=== PATIENT | male | born 1940 | race Caucasian/White ===

== ENCOUNTER 2022-09-23 09:03 | Observation (INO) | payer OTHER ==
[2022-09-23 09:16] LABS: Absolute Lymphocytes (CBC) 1.1 K/uL (0.7-4.9); Hematocrit 42.9 % (39.6-49.0); Lymphocytes % 18.2 % (15.3-44.8); MCV 93.6 fL (80-100); MPV 9.1 fL (7.6-11.3); RBC Red Blood Cell Count 4.58 M/uL (4.33-5.43)
[2022-09-23 09:19] LABS: Protime INR 1.14
[2022-09-23] MEDS ORDERED: ASPIRIN 81 MG CHEWABLE TABLET ONE (09:19)
[2022-09-23 09:39] LABS: Albumin 3.7 g/dL (3.4-5.0); Bilirubin Direct 0.3 mg/dL (0-0.2); Bilirubin Total 0.8 mg/dL (0.2-1.0); Magnesium 1.7 mg/dL (1.6-2.4); Potassium 3.6 mEq/L (3.5-5.1); Protein, Total 6.7 g/dL (6.4-8.2)
[2022-09-23 09:42] LABS: Troponin High Sensitivity 136.9 pg/mL (<58.9)
--- NOTE | 2022-09-23 10:05 | P.HP ---
Certification for Inpatient Patient admitted to: Observation With expected LOS: <2 Midnights Patient will require the following post-hospital care: None Practitioner: I am a practitioner with admitting privileges, knowledge of patient current condition, hospital course, and medical plan of care. Services: Services provided to patient in accordance with Admission requirements found in Title 42 Section 412.3 of the Code of Federal Regulations Patient History Date of Service: 09/23/22 Primary Care Provider: [facility] Reason for admission: Chest Pain History of Present Illness: Service was provided via video visit/Tele-Medicine. For that reason, no physical examination was performed. Mr. Monica Gil is a very pleasant 82 year old male who has a past medical history of type II diabetes mellitus, hypertension, and dyslipidemia who presents to the [facility] Emergency Department with chest pain. He reports that, about 3 weeks ago, he began experiencing chest pain. He states that this chest pain is in his bilateral upper chest. He states that the pain is intermittent, and occurs without any obvious inciting or alleviating factors. He grades the pain as mild-moderate. He has tried taking aspirin, with partial alleviation of symptoms. On review of systems, he denies any fevers, chills, headaches, dizziness, syncope, numbness/tingling, weakness, palpitations, shortness of breath, wheezing, cough, abdominal pain, nausea/vomiting, diarrhea, constipation, myalgia, lower extremity edema, joint aches, or any other symptoms. Upon presentation, his vital signs were stable. His laboratory studies were notable for an initial troponin of 136.9. EKG was without STEMI criteria. Chest x-ray revealed, "bibasilar patchy airspace opacities more pronounced on the left, raise concern for developing pneumonia." In the Emergency Department, he was given aspirin and enoxaparin. He was admitted to the General Internal Medicine Service for further evaluation. Allergies No Known Allergies Allergy (Verified 09/23/22 11:06) Home Medications: Atorvastatin Calcium [Lipitor] 80 mg PO BEDTIME 09/23/22 Empagliflozin [Jardiance] 25 mg PO DAILY 09/23/22 Ergocalciferol (Vitamin D2) [Vitamin D2] 50,000 unit PO DIRECTED 09/23/22 Metformin HCl 1,000 mg PO BID 09/23/22 Semaglutide [Ozempic] 0.25 mg SQ DIRECTED 09/23/22 lisinopriL [Lisinopril] 10 mg PO DAILY 09/23/22 - Past Medical/Surgical History -: Type II Diabetes Mellitus -: Hypertension -: Hyperlipidemia -: Restless Leg Syndrome -: Cholecystectomy - Family History Family History: Reviewed- Non-Contributory - Social History Smoking Status: Never smoker Alcohol use: No CD- Drugs: No Review of Systems General: Unremarkable Eyes: Unremarkable ENT: Unremarkable Respiratory: Unremarkable Cardiovascular: Chest Pain Gastrointestinal: Unremarkable Genitourinary: Unremarkable Musculoskeletal: Unremarkable Integumentary: Unremarkable Neurological: Unremarkable Lymphatics: Unremarkable Physical Examination - Vital Signs Temperature: 97.9 F Blood Pressure: 157/81 Pulse: 81 Respirations: 16 Pulse Ox (%): 98 - Physical Exam General: Alert, In no apparent distress, Oriented x3 Respiratory: Other (No visible shortness of breath or respiratory distress) Cardiovascular: Regular rate/rhythm (on telemetry) Neurological: Normal speech, Normal affect - Studies Laboratory Data (last 24 hrs) 09/23/22 09:09: PT 12.5, INR 1.14 09/23/22 09:09: WBC 6.30, Hgb 14.3, Hct 42.9, Plt Count 157 09/23/22 09:09: Sodium 139, Potassium 3.6, BUN 14, Creatinine 0.91, Glucose 127 H, Magnesium 1.7, Total Bilirubin 0.8, AST 21, ALT 42, Alkaline Phosphatase 88 Assessment and Plan - Plan # Chest Pain, concern for Acute Coronary Syndrome (Non-ST Segment Elevation Myocardial Infarction) # Hypertension # Dyslipidemia # History of Aortic Stenosis - Evaluation thus far: - EKG: without STEMI criteria, trend - Trend troponin: first was 136.9 - Ordered d-dimer - Ordered transthoracic echocardiogram - Chest x-ray = "bibasilar patchy airspace opacities more pronounced on the left, raise concern for developing pneumonia. " - Management: - Consulted Cardiology and spoke with Dr. Newby - recommendations appreciated - S/P aspirin 324 mg PO x 1 in ED - Start daily baby aspirin - S/P enoxaparin in ED - continue pending Cardiology recs - Continue home lisinopril, atorvastatin - Plan to start metoprolol as tolerated # Left-Sided Community Acquired Pneumonia - Evaluation thus far: - Does not meet SIRS criteria - D-Dimer = pending - Procalcitonin = pending - Lactate + Blood Cultures = pending - Chest x-ray = "bibasilar patchy airspace opacities more pronounced on the left, raise concern for developing pneumonia. " - Treatment thus far: - Consulted Respiratory Therapy - Supplemental oxygen to maintain SpO2 > 92% - Ceftriaxone 1 g IV q24hr - Azithromycin 500 mg IV q24hr - Encouraged incentive spirometry # Type II Diabetes Mellitus - Hgb A1c = pending - Correction scale insulin - Hold home empagliflozin, metformin, semaglutide while hospitalized Emigdio Medrano M.D. Discharge Plan: Home Plan to discharge in: 24 Hours - Advance Directives Does patient have a Living Will: No Does patient have a Durable POA for Healthcare: No - Code Status/Comfort Care Code Status Assessed: Yes Code Status: Full Code
--- NOTE | 2022-09-23 10:09 | ER ---
Nurse's Notes [facility] Name: Monica Gil Age: 82 yrs Sex: Male : 1940 Arrival Date: 09/23/2022 Time: 09:03 Bed 8 Private MD: Diagnosis: Subsequent non-ST elevation (NSTEMI) myocardial infarction Presentation: 09/23 09:03 Coronavirus screen: At this time, the client does not indicate any symptoms associated hb with coronavirus-19. Ebola Screen: No symptoms or risks identified at this time. Initial Sepsis Screen: Does the patient meet any 2 criteria? No. Patient's initial sepsis screen is negative. Does the patient have a suspected source of infection? No. Patient's initial sepsis screen is negative. Risk Assessment: Do you want to hurt yourself or someone else? Patient reports no desire to harm self or others. 09:03 Method Of Arrival: EMS: [facility] 09:03 Chief complaint: EMS states: SUBSTERNAL CP x3 WK, SENT FROM [place]. Onset of symptoms is bp unknown. Care prior to arrival: IV initiated. 20 GA, in the right forearm, Glucose check: 149. 09:03 Acuity: DEXTER 3 bp Triage Assessment: 09:08 General: Appears in no apparent distress. Behavior is calm, cooperative, appropriate bp for age. Pain: Complains of pain in chest. EENT: No deficits noted. Neuro: No deficits noted. Cardiovascular: Rhythm is atrial fibrillation. Respiratory: No deficits noted. GI: No signs and/or symptoms were reported involving the gastrointestinal system. : No signs and/or symptoms were reported regarding the genitourinary system. Derm: No deficits noted. Musculoskeletal: No deficits noted. Historical: - Allergies: 09:08 No Known Allergies; bp - Home Meds: 09:08 atorvastatin 80 mg oral tablet daily [Active]; empagliflozin 25 mg oral tablet daily bp [Active]; ergocalciferol (vitamin D2) 1,250 mcg (50,000 unit) oral capsule every week [Active]; gabapentin 600 mg oral Tablet, Extended Release 24 hr every evening [Active]; lisinopril 10 mg Oral tablet daily [Active]; metformin 1,000 mg Oral Tablet, ER Gastric Retention 24 hr 2 times per day [Active]; semaglutide 0.25 mg or 0.5 mg(2 mg/1.5 mL) subcutaneous Pen Injector every week [Active]; sildenafil 100 mg oral tablet 0.5 tab daily [Active]; - PMHx: 09:08 Hypercholesterolemia; AORTIC VALVE STENOSIS; RESTLESS LEG SYNDROM; Diabetes mellitus; bp - Immunization history:: Adult Immunizations up to date. - Social history:: Smoking status: Patient denies any tobacco usage or history of. Screenin:05 [facility] ED Fall Risk Assessment (Adult) Score/Fall Risk Level 0 - 2 = Low Risk hb Oriented to surroundings, Maintained a safe environment, Educated pt \T\ family on fall prevention, incl call for assistance when getting out of bed. Abuse screen: Denies threats or abuse. Denies injuries from another. Nutritional screening: No deficits noted. Tuberculosis screening: No symptoms or risk factors identified. Assessment: 09:14 General: SEE TRIAGE NOTE. bp 10:11 Reassessment: Patient appears in no apparent distress at this time. Patient and/or hb family updated on plan of care and expected duration. Pain level reassessed. Patient is alert, oriented x 3, equal unlabored respirations, skin warm/dry/pink. 11:34 Reassessment: Patient appears in no apparent distress at this time. Patient and/or hb family updated on plan of care and expected duration. Pain level reassessed. Patient is alert, oriented x 3, equal unlabored respirations, skin warm/dry/pink. 12:37 Reassessment: Patient appears in no apparent distress at this time. Patient and/or hb family updated on plan of care and expected duration. Pain level reassessed. Patient is alert, oriented x 3, equal unlabored respirations, skin warm/dry/pink. Vital Signs: 09:03 BP 157 / 81; Pulse 81; Resp 16; Temp 97.9; Pulse Ox 98% ; Weight 77.11 kg; Height 5 ft. hb 7 in. ; Pain 3/10; 10:11 BP 136 / 75; Pulse 81; Resp 16; Pulse Ox 97% on R/A; hb 11:34 BP 113 / 66; Pulse 85; Resp 15; Pulse Ox 96% on R/A; Pain 0/10; hb 12:37 BP 108 / 56; Pulse 74; Resp 20; Pulse Ox 95% on R/A; hb 09:03 Body Mass Index 26.63 (77.11 kg, 170.18 cm) hb 09:03 Pain Scale: Adult hb 11:34 Pain Scale: Adult hb ED Course: 09:03 Patient arrived in ED. hb 09:04 Sarika Espinoza FNP-C is [facility]. snw 09:04 Vidal Noyola MD is Attending Physician. snw 09:05 Arm band placed on. hb 09:07 Santi Joel, RN is Primary Nurse. bp 09:08 Triage completed. bp 09:12 Patient maintains SpO2 saturation greater than 95% on room air. hb 09:13 EKG done, by ED staff. tm3 09:14 Patient has correct armband on for positive identification. Bed in low position. Call bp light in reach. Side rails up X2. Adult w/ patient. Client placed on continuous cardiac and pulse oximetry monitoring. NIBP monitoring applied. 09:14 Maintain EMS IV. Dressing intact. Good blood return noted. Site clean \T\ dry. Gauge \T\ hb site: 20g RFA. 09:14 No provider procedures requiring assistance completed. Maintain EMS IV. Dressing bp intact. Good blood return noted. Site clean \T\ dry. Gauge \T\ site: 20 GA R FA. Patient maintains SpO2 saturation greater than 95% on room air. 10:08 Emigdio Medrano MD is Hospitalizing Provider. snw 10:16 XRAY Chest (1 view) In Process Unspecified. EDMS Administered Medications: 09:14 Drug: Aspirin PO Chewable Tablet 324 mg Route: PO; hb 09:44 Follow up: Response: No adverse reaction bp 11:17 Drug: Rocephin IV 1 grams Route: IV; Rate: calculated rate; Site: right forearm; hb 11:18 Drug: Enoxaparin Sub-Q 1 mg/kg Route: Sub-Q; Site: abdomen; hb Medication: 09:15 VIS not applicable for this client. hb Outcome: 10:08 Decision to Hospitalize by Provider. snw 14:20 Patient left the ED. iw Signatures: Dispatcher [employer] EDMS Roc Aguirre tm3 Sarika Espinoza FNP-C BEEF GRADER-Csnw Yokasta Jett, CANDI RN iw Bekah Johns RN RN hb Santi Joel, RN RN bp
--- NOTE | 2022-09-23 10:09 | EDPHYS ---
Physician Documentation [facility] Name: Monica Gil Age: 82 yrs Sex: Male : 1940 Arrival Date: 09/23/2022 Time: 09:03 Bed 8 Private MD: ED Physician Vidal Noyola HPI: 09/23 09:11 This 82 yrs old Male presents to ER via EMS with complaints of Chest Pain. snw 09:11 The patient or guardian reports chest pain that is located primarily in the anterior snw chest wall, bilaterally. Onset: acutely, 3 week(s) ago, and became persistent. The pain does not radiate. Associated signs and symptoms: The patient has no apparent associated signs or symptoms. The chest pain is described as dull, a pressure. Duration: The patient or guardian reports a single episode, that is still ongoing. Severity of pain: At its worst the pain was mild. The patient has experienced a previous episode, many years ago. pt sent from the [place] clinic for eval. Historical: - Allergies: : No Known Allergies; bp - Home Meds: :08 atorvastatin 80 mg oral tablet daily [Active]; empagliflozin 25 mg oral tablet daily bp [Active]; ergocalciferol (vitamin D2) 1,250 mcg (50,000 unit) oral capsule every week [Active]; gabapentin 600 mg oral Tablet, Extended Release 24 hr every evening [Active]; lisinopril 10 mg Oral tablet daily [Active]; metformin 1,000 mg Oral Tablet, ER Gastric Retention 24 hr 2 times per day [Active]; semaglutide 0.25 mg or 0.5 mg(2 mg/1.5 mL) subcutaneous Pen Injector every week [Active]; sildenafil 100 mg oral tablet 0.5 tab daily [Active]; - PMHx: 09:08 Hypercholesterolemia; AORTIC VALVE STENOSIS; RESTLESS LEG SYNDROM; Diabetes mellitus; bp - Immunization history:: Adult Immunizations up to date. - Social history:: Smoking status: Patient denies any tobacco usage or history of. ROS: 09:10 Constitutional: Negative for fever, chills, and weight loss, Eyes: Negative for injury, snw pain, redness, and discharge, ENT: Negative for injury, pain, and discharge, Neck: Negative for injury, pain, and swelling, Respiratory: Negative for shortness of breath, cough, wheezing, and pleuritic chest pain, Abdomen/GI: Negative for abdominal pain, nausea, vomiting, diarrhea, and constipation, Back: Negative for injury and pain, : Negative for injury, bleeding, discharge, and swelling, MS/Extremity: Negative for injury and deformity, Skin: Negative for injury, rash, and discoloration, Neuro: Negative for headache, weakness, numbness, tingling, and seizure, Psych: Negative for depression, anxiety, suicide ideation, homicidal ideation, and hallucinations. 09:10 Cardiovascular: Positive for chest pain, of the chest. Exam: 09:07 Constitutional: This is a well developed, well nourished patient who is awake, alert, snw and in no acute distress. Head/Face: Normocephalic, atraumatic. Eyes: Pupils equal round and reactive to light, extra-ocular motions intact. Lids and lashes normal. Conjunctiva and sclera are non-icteric and not injected. Cornea within normal limits. Periorbital areas with no swelling, redness, or edema. ENT: Nares patent. No nasal discharge, no septal abnormalities noted. Tympanic membranes are normal and external auditory canals are clear. Oropharynx with no redness, swelling, or masses, exudates, or evidence of obstruction, uvula midline. Mucous membranes moist. Neck: Trachea midline, no thyromegaly or masses palpated, and no cervical lymphadenopathy. Supple, full range of motion without nuchal rigidity, or vertebral point tenderness. No Meningismus. Chest/axilla: Normal chest wall appearance and motion. Nontender with no deformity. No lesions are appreciated. Respiratory: Lungs have equal breath sounds bilaterally, clear to auscultation and percussion. No rales, rhonchi or wheezes noted. No increased work of breathing, no retractions or nasal flaring. Abdomen/GI: Soft, non-tender, with normal bowel sounds. No distension or tympany. No guarding or rebound. No evidence of tenderness throughout. Back: No spinal tenderness. No costovertebral tenderness. Full range of motion. Skin: Warm, dry with normal turgor. Normal color with no rashes, no lesions, and no evidence of cellulitis. MS/ Extremity: Pulses equal, no cyanosis. Neurovascular intact. Full, normal range of motion. Neuro: Awake and alert, GCS 15, oriented to person, place, time, and situation. Cranial nerves II-XII grossly intact. Motor strength 5/5 in all extremities. Sensory grossly intact. Cerebellar exam normal. Normal gait. Psych: Awake, alert, with orientation to person, place and time. Behavior, mood, and affect are within normal limits. 09:07 Cardiovascular: Rate: normal, Rhythm: irregular, Pulses: no pulse deficits are appreciated, Heart sounds: normal, Edema: is not appreciated. Vital Signs: 09:03 BP 157 / 81; Pulse 81; Resp 16; Temp 97.9; Pulse Ox 98% ; Weight 77.11 kg; Height 5 ft. hb 7 in. ; Pain 3/10; 10:11 BP 136 / 75; Pulse 81; Resp 16; Pulse Ox 97% on R/A; hb 11:34 BP 113 / 66; Pulse 85; Resp 15; Pulse Ox 96% on R/A; Pain 0/10; hb 12:37 BP 108 / 56; Pulse 74; Resp 20; Pulse Ox 95% on R/A; hb 09:03 Body Mass Index 26.63 (77.11 kg, 170.18 cm) hb 09:03 Pain Scale: Adult hb 11:34 Pain Scale: Adult hb MDM: 09:04 Patient medically screened. snw 09:44 The patient was given aspirin in the Emergency Department. RODRICK Risk Score: 1 - snw patient's age is greater or equal to 65 years, 1 - Three or more CAD risk factors, 1- Known CAD, 1 - Recent [<24hrs] Severe Angina, 1 - Elevated Cardiac Markers, TOTAL SCORE = 5. Data reviewed: vital signs, nurses notes, lab test result(s), radiologic studies. Consideration of Admission/Observation Patient was admitted/placed on observation. Counseling: I had a detailed discussion with the patient and/or guardian regarding: the historical points, exam findings, and any diagnostic results supporting the discharge/admit diagnosis, the presence of at least one elevated blood pressure reading (>120/80) during this emergency department visit, lab results, radiology results, the need for further work-up and treatment in the hospital, pt offered transfer to [place], declines. Pt wishes to be admitted here at [facility]. Special discussion: Based on the history and exam findings, there is no indication for further emergent testing or inpatient evaluation. 11:04 ED course: pt is without elevated WBC, no fever, no cough. Chest pain has been ongoing snw x 3 weeks. Chest x-ray read as concerning for developing pneumonia, will give Rocephin as pt will be hospitalized and at increased risk for infection.. 09/23 09:05 Order name: Basic Metabolic Panel; Complete Time: 09:42 snw 09/23 09:05 Order name: CBC with Diff; Complete Time: 09:18 snw 09/23 09:05 Order name: LFT's; Complete Time: 09:42 snw 09/23 09:05 Order name: Magnesium; Complete Time: 09:42 snw 09/23 09:05 Order name: NT PRO-BNP; Complete Time: 09:42 snw 09/23 09:05 Order name: PT-INR; Complete Time: 09:26 snw 09/23 09:05 Order name: Troponin HS; Complete Time: 09:42 snw 09/23 10:06 Order name: Troponin High Sensitivity EDMS 09/23 10:06 Order name: Troponin High Sensitivity EDMS 09/23 10:06 Order name: Troponin High Sensitivity EDMS 09/23 10:35 Order name: D-Dimer; Complete Time: 11:47 EDMS 09/23 10:59 Order name: Basic Metabolic Panel EDMS 09/23 10:59 Order name: Basic Metabolic Panel EDMS 09/23 10:59 Order name: CBC with Automated Diff EDMS 09/23 10:59 Order name: CBC with Automated Diff EDMS 09/23 10:59 Order name: Magnesium EDMS 09/23 10:59 Order name: Magnesium EDMS 09/23 10:59 Order name: Phosphorus EDMS 09/23 10:59 Order name: Phosphorus EDMS 09/23 11:59 Order name: Lactate w/ 2H reflex if indic.; Complete Time: 12:43 EDMS 09/23 12:13 Order name: Procalcitonin; Complete Time: 12:43 EDMS 09/23 09:05 Order name: XRAY Chest (1 view); Complete Time: 11:04 snw 09/23 10:05 Order name: Echo with Doppler EDMS 09/23 12:22 Order name: CT; Complete Time: 12:43 EDMS 09/23 09:05 Order name: EKG; Complete Time: 09:06 snw 09/23 10:59 Order name: Heart Healthy EDMS 09/23 09:05 Order name: Cardiac monitoring; Complete Time: 09:14 snw 09/23 09:05 Order name: EKG - Nurse/Tech; Complete Time: 09:14 snw 09/23 09:05 Order name: IV Saline Lock; Complete Time: 09:14 snw 09/23 09:05 Order name: Labs collected and sent; Complete Time: :14 snw 09/23 09:05 Order name: O2 Per Protocol; Complete Time: :14 snw 09/23 09:05 Order name: O2 Sat Monitoring; Complete Time: 09:14 snw Administered Medications: 09:14 Drug: Aspirin PO Chewable Tablet 324 mg Route: PO; hb 09:44 Follow up: Response: No adverse reaction bp 11:17 Drug: Rocephin IV 1 grams Route: IV; Rate: calculated rate; Site: right forearm; hb 11:18 Drug: Enoxaparin Sub-Q 1 mg/kg Route: Sub-Q; Site: abdomen; hb Disposition Summary: 09/23/22 10:08 Hospitalization Ordered Hospitalization Status: Inpatient Admission snw Provider: Emigdio Medrano Location: Telemetry/MedSurg (Inpatient) snw Condition: Stable snw Problem: new snw Symptoms: are unchanged snw Bed/Room Type: Standard snw Room Assignment: [facility](09/23/22 12:22) Diagnosis - Subsequent non-ST elevation (NSTEMI) myocardial infarction snw Forms: - Medication Reconciliation Form snw - SBAR form snw Signatures: Dispatcher [employer] EDJasmyne Weeks RN RN dw Sarika Espinoza, MASON HELPER-C [employer] HELPER-Csnw Bekah Johns RN RN hb Peltier, Brian RN RN bp Corrections: (The following items were deleted from the chart) 12:22 10:08 snw dw
--- NOTE | 2022-09-23 10:51 | RAD REPORT ---
EXAM DESCRIPTION: Nuria Single View09/23/2022 10:15 am CLINICAL HISTORY: CHEST PAIN COMPARISON: No comparisons TECHNIQUE: Portable AP view of the chest. FINDINGS: Bibasilar patchy airspace opacities more pronounced on the left. No pneumothorax or effusi on. The cardiomediastinal contours are unremarkable. IMPRESSION: Bibasilar patchy airspace opacities more pronounced on the left, raise concern for devel oping pneumonia.
[2022-09-23] MEDS ORDERED: CEFTRIAXONE 1000 MG/VIAL ONE ×2 (11:17→11:32)
[2022-09-23] MEDS ORDERED: ENOXAPARIN 80 MG/0.8 ML SQ ONE (11:18)
[2022-09-23] MEDS ORDERED: GLUCAGON 1 MG/VIAL IM PRN (11:22)
[2022-09-23] MEDS ORDERED: D50W 25 GM/50 ML SYRINGE IV PRN (11:22)
[2022-09-23] MEDS: INSULIN -REGULAR HUMAN 50 UNIT/0.5 ML ML SQ SCH ×3 (11:30→20:56)
[2022-09-23] MEDS ORDERED: CEFTRIAXONE 1,000 MG in NA CHLORIDE 0.9% 50 ML IVPB SCH (11:30)
[2022-09-23] MEDS ORDERED: AZITHROMYCIN IV 500 MG in NA CHLORIDE 0.9% 250 ML IVPB SCH (11:30)
[2022-09-23] MEDS ORDERED: NA CHLORIDE 0.9% 100 ML ONE (11:33)
[2022-09-23] MEDS ORDERED: D10W 125 ML IV PRN (11:34)
--- NOTE | 2022-09-23 12:22 | RAD REPORT ---
EXAM DESCRIPTION: CT - Thorax Wo Con - 09/23/2022 11:45 am CLINICAL HISTORY: PNA? COMPARISON: Chest Single View dated 09/23/2022 TECHNIQUE: Axial thin cut images of the chest were obtained without IV contrast. Multiplanar reforma ts were generated and reviewed. All CT scans are performed using dose optimization technique as appropriate and may include automated exposure control or mA/KV adjustment according to patient size. FINDINGS: No mass or infiltrate in the lung parenchyma. Small to moderate bilateral pleural effusion s with underlying dependent airspace opacification, which may suggest atelectasis. Well-circumscribed ovoid right apical 9 millimeter nodule 6 millimeter nodule along the right major fissure. A 4 millim eter nodule is present in the subpleural upper segment right lower lobe posteriorly, could be related to the ongoing atelectasis. No pneumothorax. No abnormal mediastinal or hilar masses or lymphadenopathy seen. No pulmonary artery findings. Assess ment is limited in the absence of IV contrast. Ectasia of the ascending thoracic aorta, measuring 4.2 centimeter in caliber. Heart is normal in size . No hyperdense mural thrombus. Dense calcifications at the aortic valve annulus. Moderate atheroscle rotic calcifications of the proximal coronary arteries and thoracic aorta. No chest wall mass or abnormal axillary lymphadenopathy. Evaluation of the solid abdominal structures reveals no suspicious findings. IMPRESSION: Small to moderate bilateral layering pleural effusions. Underlying dependent airspace op acification, suggestive of atelectasis. Ectasia of the ascending thoracic aorta measuring 4.2 centimeter in caliber. Multiple small right lung nodules as above, some of which may be chronic, while others may relate to ongoing atelectasis or inflammation. Short-term follow-up CT in 3 months following resolution of any acute symptoms is recommended to exclude an underlying suspicious nodule.
[2022-09-23] MEDS ORDERED: LIDOCAINE 1% 20 ML MDV ONE (13:59)
[2022-09-23] MEDS ORDERED: HEPA 1000U/500MLS 2,000 UNIT/1,000 ML BAG IV ONE (13:59)
[2022-09-23] MEDS ORDERED: NA CHLORIDE 0.9% 500 ML ONE (14:39)
[2022-09-23] MEDS ORDERED: FENTANYL CITR 100 MCG/2 ML ONE (15:05)
[2022-09-23] MEDS ORDERED: MIDAZOLAM HCL 2 MG/2 ML INJ ONE (15:06)
[2022-09-23] MEDS ORDERED: HEPARIN 5000 UNIT/ML 1 ML VIAL ONE (15:06)
[2022-09-23] MEDS ORDERED: ATROPINE SULF 1 MG/10 ML SYR IV ONE (15:06)
[2022-09-23] MEDS ORDERED: HEPARIN 10,000 UNIT/10 ML VIAL IV ONE (15:06)
[2022-09-23] MEDS ORDERED: CLOPIDOGREL 75 MG TABLET ONE (15:06)
[2022-09-23] MEDS ORDERED: VERAPAMIL HCL 10 MG/4 ML VIAL IV ONE (15:06)
--- NOTE | 2022-09-23 17:55 | CON ---
Date of Consultation: 09/23/[address] Palafox and Dr. Medrano on 09/23/2022. I saw the patient on 09/23/2022. Reason For Consultation: Non-STEMI. History Of Present Illness: Mr. Gil is 82 years old, has had a history of aortic valvular stenos is and/or regurgitation. Has a history of diabetes, dyslipidemia. Never had any coronary artery dis ease, as far as, he knows. [facility]. He has a history of dyslipidemia. He takes Jardianc e, Lipitor, metformin, Ozempic, and lisinopril at home. Comes in with about a day and a half of subs ternal chest pain across the anterior chest that is tight with some nausea and diaphoresis. No short ness of breath, PND, orthopnea, pedal edema, palpitation, or syncope. EKG is nonspecific. Chest x-r ay is negative. Troponin positive. Past Medical History: As stated above. Allergies: NONE. Medications: Listed earlier. Review of Systems: Negative. Social History: Negative. Family History: Negative. Physical Examination: Vital Signs: Stable, afebrile. HEENT: Negative. Neck: Supple with no bruit. Chest: Clear. Cardiac: Revealed a regular rhythm and rate with a 3/6 systolic ejection murmur, as well as, a diast olic murmur at the right third intercostal space radiating to the carotid. He had a positive S4 gall ops. Abdomen: Benign. Extremities: Revealed no clubbing, cyanosis, or edema. Diagnostic Data: A chest x-ray showed possible pneumonia. BNP was 3114. EKG is nonspecific. Rest of the blood work was normal. Creatinine is normal. Impression And Plan: 1.Azv-FW-xecguaxyg myocardial infarction. 2.Aortic valve disease probably stenosis and/or regurgitation. Echocardiogram is pending. 3.Diabetes, well controlled. 4.Dyslipidemia, well controlled. 5.Possible pneumonia. There is no clinical evidence of pneumonia. His white count is normal. He does not have any fever o r cough. Blood cultures are pending. We will continue to follow him. We will plan to cath him toda y. He understands the risks and the benefits of the procedure, and he agrees to proceed. SHAKA/DEIRDRE Voice ID: [id number] Report ID: [id number]
[2022-09-23] MEDS ORDERED: METOPROLOL TAR 25 MG TAB PO SCH (18:00)
[2022-09-23 18:23] VITALS: O2SAT 96
[2022-09-23] MEDS ORDERED: HEPARIN/D5W 25,000 UNIT/500 ML BAG IV PRN (20:00)
[2022-09-23 21:00] VITALS: BP 158/67
[2022-09-23] MEDS ORDERED: ENOXAPARIN 80 MG/0.8 ML SQ SCH (21:00)
[2022-09-23] MEDS ORDERED: ATORVASTATIN 80 MG TAB PO SCH (21:00)
[2022-09-23 21:51] VITALS: BMI 26.6
[2022-09-23 21:54] VITALS: TEMP 98.6
[2022-09-23] MEDS ORDERED: ONDANSETRON 4 MG/2 ML VIAL IV ONE (22:34)
[2022-09-23] MEDS ORDERED: MORPHINE 4 MG/ML SYR IV ONE (22:34)
--- NOTE | 2022-09-23 22:58 | OP ---
Date of Procedure: 09/23/2022 Surgeon: JG MERCEDES Indication: Selective coronary angiogram. Indication: Non-ST elevation myocardial infarction. Access: Right radial artery 6-Yoruba closed with TR band. Complications: None. Estimated Blood Loss: Bleeding less than 20 mL. Description Of Procedure: After risks, benefits, and alternatives were explained, the patient agreed to procedure and signed informed consent. The patient was brought into the cardiac catheterization laboratory and was prepped and draped in sterile fashion. Then, I accessed right radial artery using pediatric micropuncture kit and placed 6-Yoruba Slender sheath and then I took 5-Yoruba [place] 4 cath eter into the aortic root over a J-wire, engaged left main and then the RCA and took standard views a nd then removed the catheter and sheath and placed TR band with good hemostasis. Findings: 1.Left main: Very large vessel with severe rzx-ha-dkwoag stenosis ranging between 80% to 90% stenos is. 2.LAD: With proximal diffuse 80% stenosis and then the bga-ni-qlspfe segment just with luminal regu larities. There is a very large diagonal branch that appears to be with mild disease only. 3.Left circumflex: Very large and dominant. Ostial to proximal 80%, then OM1 branch has multiple a reas of 50% to 60% stenosis and then the circ itself that supplies the inferior wall has multiple les ions ranging between 20% to 40% stenosis. 4.RCA: Very small, less than 1 mm vessel and nondominant. Conclusion: Severe multivessel coronary artery disease including distal left main, ostial left anter ior descending artery, and the left circumflex. Recommendations: CABG evaluation. We will transfer to [facility]. If the patient is t urned down for surgery, then we will plan for a complex PCI with Impella assistance to stent the left main to LAD and to circ using culotte technique. SR/MODL Voice ID: [id number] Report ID: [id number]
--- NOTE | 2022-09-24 00:08 | P.DS ---
Admission Date: 09/23/22 Discharge Date: 09/24/22 Primary Care Provider: [facility] Disposition: TRANSFER TO [facility] Discharge Condition: SERIOUS Reason for Admission: Chest Pain Consultations: Cardiology- Dr. Newby and Dr. Kent Procedures: Selective coronary angiogram - Problems (1) NSTEMI (non-ST elevated myocardial infarction) Current Visit: Yes Status: Acute (2) Coronary artery disease Current Visit: Yes Status: Chronic Qualifiers: Coronary Disease-Associated Artery/Lesion type: [place] artery [place] vs. transplanted heart: [place] heart Associated angina: with unstable angina Qualified Code(s): I25.110 - Atherosclerotic heart disease of [place] coronary artery with unstable angina pectoris (3) Hypertension Current Visit: Yes Status: Chronic Qualifiers: Hypertension type: primary hypertension Qualified Code(s): I10 - Essential (primary) hypertension (4) Hyperlipidemia Current Visit: Yes Status: Chronic Qualifiers: Hyperlipidemia type: mixed hyperlipidemia Qualified Code(s): E78.2 - Mixed hyperlipidemia (5) History of aortic stenosis Current Visit: Yes Status: Chronic (6) Pneumonia Current Visit: Yes Status: Acute Qualifiers: Pneumonia type: due to unspecified organism Laterality: left Lung location: lower lobe of lung Qualified Code(s): J18.9 - Pneumonia, unspecified organism (7) Type 2 diabetes mellitus Current Visit: Yes Status: Chronic Qualifiers: Diabetes mellitus longterm insulin use: without longterm use Diabetes mellitus complication status: with hyperglycemia Qualified Code(s): E11.65 - Type 2 diabetes mellitus with hyperglycemia Brief History of Present Illness: Mr. Monica Gil is a very pleasant 82 year old male who has a past medical history of type II diabetes mellitus, hypertension, and dyslipidemia who presents to the [facility] Emergency Department with chest pain. He reports that, about 3 weeks ago, he began experiencing chest pain. He states that this chest pain is in his bilateral upper chest. He states that the pain is intermittent, and occurs without any obvious inciting or alleviating factors. He grades the pain as mild-moderate. He has tried taking aspirin, with partial alleviation of symptoms. On review of systems, he denies any fevers, chills, headaches, dizziness, syncope, numbness/tingling, weakness, palpitations, shortness of breath, wheezing, cough, abdominal pain, nausea/vomiting, diarrhea, constipation, myalgia, lower extremity edema, joint aches, or any other symptoms. Upon presentation, his vital signs were stable. His laboratory studies were notable for an initial troponin of 136.9. EKG was without STEMI criteria. Chest x-ray revealed, "bibasilar patchy airspace opacities more pronounced on the left, raise concern for developing pneumonia." In the Emergency Department, he was given aspirin and enoxaparin. He was admitted to the General Internal Medicine Service for further evaluation. Hospital Course: Patient underwent cardiac catheterization which revealed severe multivessel coronary artery disease including distal left main, ostial left anterior descending artery, and the left circumflex. Cardiology recommended transfer to [facility] for CABG evaluation. He was accepted and left this facility hemodynamically stable by ground EMS on heparin drip at 2237. Vital Signs/Physical Exam: Temp Pulse Resp BP Pulse Ox 98.6 F 109 H 16 158/67 H 96 09/23/22 20:00 09/23/22 20:59 09/23/22 22:43 09/23/22 20:59 09/23/22 22:43 General: Alert, In no apparent distress, Oriented x3 HEENT: Atraumatic, Normocephalic Neck: Supple Respiratory: Clear to auscultation bilaterally, Normal air movement Cardiovascular: Regular rate/rhythm, Normal S1 S2 Gastrointestinal: Soft and benign, Non-distended Musculoskeletal: No clubbing Integumentary: No rashes Neurological: Normal speech, Normal affect Laboratory Data at Discharge: WBC 6.30 thou/uL (4.3-10.9) 09/23/22 09:09 Hgb 14.3 g/dL (13.6-17.9) 09/23/22 09:09 Hct 42.9 % (39.6-49.0) 09/23/22 09:09 Plt Count 157 thou/uL (152-406) 09/23/22 09:09 PT 12.5 SECONDS (9.5-12.5) 09/23/22 09:09 INR 1.14 09/23/22 09:09 Sodium 139 mEq/L (136-145) 09/23/22 09:09 Potassium 3.6 mEq/L (3.5-5.1) 09/23/22 09:09 BUN 14 mg/dL (7-18) 09/23/22 09:09 Creatinine 0.91 mg/dL (0.70-1.30) 09/23/22 09:09 Glucose 127 mg/dL (74-106) H 09/23/22 09:09 Magnesium 1.7 mg/dL (1.6-2.4) 09/23/22 09:09 Total Bilirubin 0.8 mg/dL (0.2-1.0) 09/23/22 09:09 AST 21 U/L (15-37) 09/23/22 09:09 ALT 42 U/L (16-61) 09/23/22 09:09 Alkaline Phosphatase 88 U/L (45-117) 09/23/22 09:09 Home Medications: Atorvastatin Calcium [Lipitor] 80 mg PO BEDTIME 09/23/22 Empagliflozin [Jardiance] 25 mg PO DAILY 09/23/22 Ergocalciferol (Vitamin D2) [Vitamin D2] 50,000 unit PO DIRECTED 09/23/22 Metformin HCl 1,000 mg PO BID 09/23/22 Semaglutide [Ozempic] 0.25 mg SQ DIRECTED 09/23/22 lisinopriL [Lisinopril] 10 mg PO DAILY 09/23/22 Diet: ADA Activity: Ad ania Followup: NONE,NONE [Primary Care Provider] - Physician Review: Patient Assessed, Agree with Above Assessment and Plan Time spent managing pt's care (in minutes): 20
--- NOTE | 2022-09-24 07:12 | EKG ---
Test Date: 2022-09-23 Test Time: 09:09:54 Order Analyst: GENEVIEVE MEASUREMENT RESULTS: Intervals: Rate: 77 NM: 204 QRSD: 116 QT: 422 QTc: 477 [place]: P: 67 NM: 204 QRS: -40 T: -4 INTERPRETIVE STATEMENTS: Sinus rhythm with premature atrial complexes Left axis deviation Left ventricular hypertrophy with QRS widening Anteroseptal infarct, age undetermined ST & T wave abnormality, consider lateral ischemia Abnormal ECG No previous ECG available for comparison Electronically Signed On 09-24-22 07:09:39 CDT by Zay Newby
[2022-09-24] MEDS ORDERED: lisinopriL 10 MG TAB PO SCH (09:00)
[2022-09-24] MEDS ORDERED: ASPIRIN 81 MG CHEWABLE TABLET PO SCH (09:00)
--- NOTE | 2022-09-26 07:00 | ECHO ---
HEIGHT: 5 ft 7 in WEIGHT: 170 lb 0 oz DATE OF STUDY: 09/23/[address]: Emigdio Medrano MD 2-DIMENSIONAL: YES M.MODE: YES DOPPLER: YES COLOR FLOW: YES TDS: NO PORTABLE: YES DEFINITY: NO BUBBLE STUDY: NO DIAGNOSIS: NSTEMI CARDIAC HISTORY: CATHERIZATION: YES SURGERY: NO PROSTHETIC VALVE: NO PACEMAKER: NO MEASUREMENTS (cm) DIASTOLIC (NORMALS) SYSTOLIC (NORMALS) IVSd 1.1 (0.6-1.2) LA Diam 2.5 (1.9-4.0) LVEF 67% LVIDd 4.1 (3.5-5.7) LVIDs 2.6 (2.0-3.5) %FS 3.7% LVPWd 1.1 (0.6-1.2) Ao Diam 2.8 (2.0-3.7) 2 DIMENSIONAL ASSESSMENT: RIGHT ATRIUM: NORMAL LEFT ATRIUM: NORMAL RIGHT VENTRICLE: NORMAL LEFT VENTRICLE: NORMAL TRICUSPID VALVE: MILD TRICUSPID REGURGITATION MITRAL VALVE: MITRAL ANNULAR CALCIFICATION WITH MILD MITRAL REGURGITATION PULMONIC VALVE: NORMAL AORTIC VALVE: HEAVILY CALCIFIED WITH SEVERE AORTIC STENOSIS PERICARDIAL EFFUSION: NONE AORTIC ROOT: NORMAL LEFT VENTRICULAR WALL MOTION: NORMAL. DOPPLER/COLOR FLOW: SEE BELOW. COMMENTS: NORMAL LEFT VENTRICULAR EJECTION FRACTION 55-60% WITH NORMAL WALL MOTION MITRAL ANNULAR CALCIFICATION WITH MILD MITRAL REGURGITATION SEVERE AORTIC VALVE STENOSIS WITH MILD AORTIC INSUFFICIENCY MILD TRICUSPID REGURGITATION MODERATE DIASTOLIC DYSFUNCTION TECHNOLOGIST: CHELSEA MONTANA
== END 2022-09-23 22:40 | disposition short-term general hospital (02) ==
LOC: ER 09:03 → ERHOLD 10:57 → 4TH 19:05
PROVIDERS: ADMIT Internal Medicine; ATTEND Hospitalist
DX: I21.4 Non-ST elevation (NSTEMI) myocardial infarction (principal); I25.110 Atherosclerotic heart disease of native coronary artery with unstable angina pectoris; E11.65 Type 2 diabetes mellitus with hyperglycemia; I10 Essential (primary) hypertension; E78.5 Hyperlipidemia, unspecified; I77.810 Thoracic aortic ectasia; R91.8 Other nonspecific abnormal finding of lung field; I35.0 Nonrheumatic aortic (valve) stenosis; R01.1 Cardiac murmur, unspecified; G25.81 Restless legs syndrome; Z79.899 Other long term (current) drug therapy; Z90.49 Acquired absence of other specified parts of digestive tract
CPT/HCPCS: 93005; 93306; 87040; 85025; 80048; 36415; 83735; 85610; 82947; 85379; 80076; 83605; 84484 ×2; 84145; 83880; 71250; 71045; 93454; 76937; 96372; 96374; 99285; C1893; Q9966; J1644; J2001; J2250; J3010; J2405; J7050; J7040; J0696 ×3; G0378 ×3; J0461

== ENCOUNTER 2022-10-14 16:09 | Observation (INO) | payer OTHER ==
--- OUTSIDE RECORDS SUMMARY | 2022-10-14 16:16 | XMS REPORT | Continuity of Care Document ---
:1940 Author Organization [facility] t Address [address] [facility] [address] [place] [address] Care Team Providers Name Role Phone Kathya Maria Attending Clinician Unavailable Kathya Maria Admitting Clinician Unavailable Payers Payer Name Policy Type Policy Number Effective Date Expiration Date S ource Problems This patient has no known problems. Allergies, Adverse Reactions, Alerts Allergy Allergy Status Severity Reaction(s) Onset Inactive Treating Comm ents Source Name Type Date Date Clinician No Known DA Active [facility] Allergie 5 Clear s 00:00: Jackson [address] [place] [address] Medications This patient has no known medications. Procedures Procedure Date / Time Performed Performing Clinician [facility] e [id number] 2022-09-26 00:00:00 [facility]01 [facility] [id number] 2022-09-26 00:00:00 [facility]01 [facility] [id number] 2022-09-26 00:00:00 [facility].01 [facility] [id number] 2022-09-26 00:00:00 [facility]01 [facility] [id number] 2022-09-26 00:00:00 [facility]01 [facility] [id number] 2022-09-26 00:00:00 [facility]01 [facility] [id number] 2022-09-26 00:00:00 [facility]01 [facility] [id number] 2022-09-26 00:00:00 [facility].01 [facility] [id number] 2022-09-26 00:00:00 [facility].01 [facility] Encounters Start End Encounter Admission Attending Care Care Encounter Source Date/Time Date/Time Type Type Clinicians Facility Department ID 2022-09-23 Inpatient UMAIR MariaCL [id number] [facility] 18:45:00 Neeru 09 [facility] 2022-09-24 2022-10-05 Inpatient UR Carson, AMALIACL INTE.02 [id number] [facility] 00:53:00 15:39:00 Neeru 26 [facility] Results Test Description Test Time Test Comments Results Result Comments Source GLUCOSE BEDSIDE 2022-10-05 12:09:00 Test Item Value Reference Range Interpretation Comme nts GLUCOSE BEDSIDE (test code = 245 MG/DL 70-110 H Performed by certified 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 GLUB[facility]) [facility] CBC W/AUTO [id number] 07:39:00 Test Item Value Reference Range Interpretation Comments WHITE BLOOD CELL (test code = 8.5 x10 3/uL 4.5-11.0 N WBC) RED BLOOD CELL (test code = 2.95 x10 6/uL 4.00-5.60 L RBC) HEMOGLOBIN (test code = HGB) 9.2 g/dL 12.5-16.9 L HEMATOCRIT (test code = HCT) 28.9 % 37.5-50.7 L MEAN CELL VOLUME (test code = 98.0 fL 81.0-99.0 N MCV) MEAN CELL HGB (test code = MCH) 31.2 pg 27.0-33.0 N MEAN CELL HGB CONCETRATION 31.8 g/dL 33.0-37.0 L (test code = MCHC) RED CELL DISTRIBUTION WIDTH CV 14.9 % 11.5-14.5 H (test code = RDW) RED CELL DISTRIBUTION WIDTH SD 52.9 fL 37.0-54.0 N (test code = RDW-SD) PLATELET COUNT (test code = 348 x10 3/uL 150-400 N PLT) MEAN PLATELET VOLUME (test code 10.4 fL 7.0-9.0 H = MPV) NEUTROPHIL % (test code = NT%) 76.7 % 56.0-77.0 N IMMATURE GRANULOCYTE % (test 1.2 % 0.0-2.0 N code = IG%) LYMPHOCYTE % (test code = LY%) 13.0 % 14.0-32.0 L MONOCYTE % (test code = MO%) 6.9 % 4.8-9.0 N EOSINOPHIL % (test code = EO%) 2.1 % 0.3-3.7 N BASOPHIL % (test code = BA%) 0.1 % 0.0-2.0 N NUCLEATED RBC % (test code = 0.0 % 0-0 N NRBC%) NEUTROPHIL # (test code = NT#) 6.51 x10 3/uL 2.0-7.6 N IMMATURE GRANULOCYTE # (test 0.10 x10 3/uL 0.00-0.03 H code = IG#) LYMPHOCYTE # (test code = LY#) 1.10 x10 3/uL 1.0-3.8 N MONOCYTE # (test code = MO#) 0.59 x10 3/uL 0.1-0.8 N EOSINOPHIL # (test code = EO#) 0.18 x10 3/uL 0.0-0.2 N BASOPHIL # (test code = BA#) 0.01 x10 3/uL 0.0-0.2 N NUCLEATED RBC # (test code = 0.00 x10 3/uL 0.0-0.1 N NRBC#) MANUAL DIFF REQUIRED (test code NO = MDIFF) BASIC METABOLIC [id number] 07:35:00 Test Item Value Reference Range Interpretation Comments SODIUM (test code = 140 mEq/L 134-147 N NA) POTASSIUM (test code 4.4 mEq/L 3.4-5.0 N = K) CHLORIDE (test code 102 mEq/L 100-108 N = CL) CARBON DIOXIDE (test 28 mEq/l 21-33 N code = CO2) ANION GAP (test code 15 0-20 N = GAP) GLUCOSE (test code = 128 mg/dL 70-110 H GLU) BLOOD UREA NITROGEN 15 mg/dL 7-18 (test code = BUN) GLOMERULAR 67.9 70-80 L The Glomerular FILTRATION RATE Filtration R ate is a (test code = GFR) calculated parameterbased on serum Creatinine, pat ient age and sex. GFR va luesless than 60 mL/min/ 1.73 square meters a re indicative ofCh ronic Kidney Disease. Values less than 15 mL/min/1.73squa re meters indicate Kidney failure. The calculation forGFR is based on the CKD-EPI (2020) calculat ion. This formulais race indifferent and is the recommended for [place] for GFRby the [facility] on for Adults.The GFR will not calculate if th e sex is unknown or if thepatient's ag e is <18 years. CREATININE (test 1.1 mg/dL 0.6-1.3 N code = CREAT) CALCIUM (test code = 8.9 mg/dL 8.0-10.5 N CA) [id number] 07:35:00 Test Item Value Reference Range Interpretation Comments MAGNESIUM (test code = MAG) 1.85 mg/dL 1.80-2.40 GLUCOSE [id number] 06:08:00 Test Item Value Reference Range Interpretation Comments GLUCOSE BEDSIDE (test 123 MG/DL 70-110 H Perfor med by certified code = GLUBED) 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 [facility] GLUCOSE [id number] 00:14:00 Test Item Value Reference Range Interpretation Comments GLUCOSE BEDSIDE (test 143 MG/DL 70-110 H Perfor med by certified code = GLUBED) 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 [facility] - DUP VEIN [id number] 00:00[facility]00 [facility] 1940 Sex: M Name: MONICA BECK [facility] : 1940 Age/S: 82 / M [address] [place] [address] Unit #: [id number] Loc: DA Edward [address] Phys: Analilia Erwin Acct: [id number] Dis Date: Status: ADM IN PHONE #: [phone] Exam Date: 10/05/2022 1008 FAX #: [phone] Reason: R/O DVT EXAMS: CPT CODE: [id number] DUP VEIN AILEEN [id number] PROCEDURE INFORMATION: Exam: US Duplex Lower Extremity Veins, Bilateral Exam date and time: 10/05/2022 9:44 AM Age: 82 years old Clinical indication: Screening exam; Additional info: R/O dvt recent surgical procedure, prior DVT, CABG. TECHNIQUE: Imaging protocol: Real-time duplex ultrasound of the bilateral extremities with 2-D chisholm scale, color Doppler flowand spectral waveform analysis including responses to compression and other maneuvers (when performed) with image documentation. Complete exam focused on the lower extremity veins. COMPARISON: US DUP VEIN AILEEN 09/24/2022 1:43 PM FINDINGS: Right deep veins: Unremarkable. The common femoral, femoral, proxim al profunda femoral and popliteal veins are patent without thrombus. Normal Doppler waveforms. Normal compressibility and/or augmentation response. Right superficial veins: Saphenofemoral junction is patent without thrombus. Left deep veins: Unremarkable. The common femoral, femoral, proximal profundafemoral and popliteal veins are patent without thrombus. Normal Doppler waveforms. Normal compressibility and/or augmentation response. Left superficial veins: Saphenofemoral junction is patent without thrombus. Soft tissues: Unremarkable. IMPRESSION: No evidence of deep vein thrombosis. at 1113 Reported and signed by: Jim Farias M.D. CC: Kathya Maria MD; Analilia Erwin Technologist: Danna Fuentes RDMS(BR)(AB) Trnscb Date/Time: 10/05/2022 (111) [email or web address] Orig Print D/T: S: 10/05/2022 (111) Probe: PAGE 1 Signed Report- XR CHEST 1 [id number] 00:00:00 [facility] : 1940 Sex: M FAX: Kathya Hassan [phone] [place]: St: ADM Name: MONICA BECK [facility] Julianne Jackson : 1940 Age/S: 82/M [address] [place] [address] Bl Unit #: [id number] Loc: G.3362 [place] [address] Phys: Kathya Maria MD Acct: [id number] Dis Date: Status: ADM IN PHONE #: [phone] Exam Date: FAX #: [phone] Reason: Post CV Surgery EXAMS: CPT CODE: [id number] XR CHEST 1 V [id number] PROCEDURE INFORMATION: Exam: XR Chest Exam date and time: 10/05/2022 5:58 AM Age: 82 years old Clinical indication: Other: Post cv surgery TECHNIQUE: Imaging protocol: Radiologic exam of the chest. Views: 1 view. COMPARISON: CR XR CHEST 1V 03/10/2022 05:20 FINDINGS: Tubes, catheters and devices: None Lungs: I mproved aeration of the right lung. There is a persistent left basilar opacity. Pleural spaces: Small left pleural effusion. There is no pneumothorax. Heart/Mediastinum: See "Vasculature" finding. Vasculature: Aortic calcifications. Stable heart size. Bones/joints: There are no acute osseous abnormalities. IMPRESSION: 1. Left basilar opacity may represent atelectasis and or pneumonia. 2. Small left pleural effusion. at 0803 Reported and signed by: Marilu Martinez M.D. CC: Kathya Maria MD Technologist: Susana Santos RT(R) Trnscrd Date/Time/By: 10/05/2022 (802) : By: [email or web address] Orig Print D/T: S: 10/05/2022 (802) PAGE 1 Signed ReportGLUCOSE [id number] 20:40:00 Test Item Value Reference Range Interpretation Comments GLUCOSE BEDSIDE (test 218 MG/DL 70-110 H Perfor med by certified code = GLUBED) 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 [facility] GLUCOSE [id number] 17:28:00 Test Item Value Reference Range Interpretation Comments GLUCOSE BEDSIDE (test 223 MG/DL 70-110 H Perfor med by certified code = GLUBED) 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 [facility] GLUCOSE [id number] 11:55:00 Test Item Value Reference Range Interpretation Comments GLUCOSE BEDSIDE (test 215 MG/DL 70-110 H Perfor med by certified code = GLUBED) 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 [facility] GLUCOSE [id number] 06:10:00 Test Item Value Reference Range Interpretation Comments GLUCOSE BEDSIDE (test 198 MG/DL 70-110 H Perfor med by certified code = GLUBED) 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 [facility] BASIC METABOLIC [id number] 05:45:00 Test Item Value Reference Range Interpretation Comments SODIUM (test code = 138 mEq/L 134-147 N NA) POTASSIUM (test code 4.3 mEq/L 3.4-5.0 N = K) CHLORIDE (test code 105 mEq/L 100-108 N = CL) CARBON DIOXIDE (test 26 mEq/l 21-33 N code = CO2) ANION GAP (test code 12 0-20 N = GAP) GLUCOSE (test code = 174 mg/dL 70-110 H GLU) BLOOD UREA NITROGEN 11 mg/dL 7-18 N (test code = BUN) GLOMERULAR 67.9 70-80 L The Glomerular FILTRATION RATE Filtration R ate is a (test code = GFR) calculated parameterbased on serum Creatinine, pat ient age and sex. GFR va luesless than 60 mL/min/ 1.73 square meters a re indicative ofCh ronic Kidney Disease. Values less than 15 mL/min/1.73squa re meters indicate Kidney failure. The calculation forGFR is based on the CKD-EPI (2020) calculat ion. This formulais race indifferent and is the recommended for [place] for GFRby the [facility] on for Adults.The GFR will not calculate if th e sex is unknown or if thepatient's ag e is <18 years. CREATININE (test 1.1 mg/dL 0.6-1.3 N code = CREAT) CALCIUM (test code = 8.9 mg/dL 8.0-10.5 N CA) [id number] 05:45:00 Test Item Value Reference Range Interpretation Comments MAGNESIUM (test code = MAG) 1.56 mg/dL 1.80-2.40 L CBC W/AUTO [id number] 05:30:00 Test Item Value Reference Range Interpretation Comments WHITE BLOOD CELL (test code = 9.9 x10 3/uL 4.5-11.0 N WBC) RED BLOOD CELL (test code = 2.99 x10 6/uL 4.00-5.60 L RBC) HEMOGLOBIN (test code = HGB) 9.4 g/dL 12.5-16.9 L HEMATOCRIT (test code = HCT) 28.8 % 37.5-50.7 L MEAN CELL VOLUME (test code = 96.3 fL 81.0-99.0 N MCV) MEAN CELL HGB (test code = MCH) 31.4 pg 27.0-33.0 N MEAN CELL HGB CONCETRATION 32.6 g/dL 33.0-37.0 L (test code = MCHC) RED CELL DISTRIBUTION WIDTH CV 15.0 % 11.5-14.5 H (test code = RDW) RED CELL DISTRIBUTION WIDTH SD 50.8 fL 37.0-54.0 N (test code = RDW-SD) PLATELET COUNT (test code = 284 x10 3/uL 150-400 N PLT) MEAN PLATELET VOLUME (test code 10.5 fL 7.0-9.0 H = MPV) NEUTROPHIL % (test code = NT%) 79.6 % 56.0-77.0 H IMMATURE GRANULOCYTE % (test 1.8 % 0.0-2.0 N code = IG%) LYMPHOCYTE % (test code = LY%) 9.7 % 14.0-32.0 L MONOCYTE % (test code = MO%) 7.8 % 4.8-9.0 N EOSINOPHIL % (test code = EO%) 0.9 % 0.3-3.7 N BASOPHIL % (test code = BA%) 0.2 % 0.0-2.0 N NUCLEATED RBC % (test code = 0.0 % 0-0 N NRBC%) NEUTROPHIL # (test code = NT#) 7.88 x10 3/uL 2.0-7.6 H IMMATURE GRANULOCYTE # (test 0.18 x10 3/uL 0.00-0.03 H code = IG#) LYMPHOCYTE # (test code = LY#) 0.96 x10 3/uL 1.0-3.8 L MONOCYTE # (test code = MO#) 0.77 x10 3/uL 0.1-0.8 N EOSINOPHIL # (test code = EO#) 0.09 x10 3/uL 0.0-0.2 N BASOPHIL # (test code = BA#) 0.02 x10 3/uL 0.0-0.2 N NUCLEATED RBC # (test code = 0.00 x10 3/uL 0.0-0.1 N NRBC#) MANUAL DIFF REQUIRED (test code NO = MDIFF) GLUCOSE [id number] 01:24:00 Test Item Value Reference Range Interpretation Comments GLUCOSE BEDSIDE (test 161 MG/DL 70-110 H Perfor med by certified code = GLUBED) 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 [facility] GLUCOSE [id number] 22:10:00 Test Item Value Reference Range Interpretation Comments GLUCOSE BEDSIDE (test 102 MG/DL 70-110 N Perfor med by certified code = GLUBED) 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 [facility] GLUCOSE [id number] 16:51:00 Test Item Value Reference Range Interpretation Comments GLUCOSE BEDSIDE (test 218 MG/DL 70-110 H Perfor med by certified code = GLUBED) 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 [facility] HEPATIC FUNCTION [id number] 07:35:00 Test Item Value Reference Range Interpretation Comments TOTAL PROTEIN (test code = PROT) 5.9 g/dL 6.4-8.2 L ALBUMIN (test code = ALB) 3.30 g/dL 3.4-5.0 L BILIRUBIN TOTAL (test code = 0.80 mg/dL 0.0-1.0 BILT) BILIRUBIN DIRECT (test code = 0.40 MG/DL 0.0-0.30 H BILD) BILIRUBIN INDIRECT (test code = 0.40 MG/DL BILIND) SGOT/AST (test code = AST) 39 IUnit/L 15-37 H SGPT/ALT (test code = ALT) 199 IUnit/L 30-65 H ALKALINE PHOSPHATASE TOTAL (test 68 IUnit/L 20-125 N code = ALKP) GLUCOSE [id number] 06:44:00 Test Item Value Reference Range Interpretation Comments GLUCOSE BEDSIDE (test 175 MG/DL 70-110 H Perfor med by certified code = GLUBED) 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 [facility] BASIC METABOLIC [id number] 03:45:00 Test Item Value Reference Range Interpretation Comments SODIUM (test code = 138 mEq/L 134-147 N NA) POTASSIUM (test code 4.1 mEq/L 3.4-5.0 N = K) CHLORIDE (test code 104 mEq/L 100-108 N = CL) CARBON DIOXIDE (test 27 mEq/l 21-33 N code = CO2) ANION GAP (test code 11 0-20 N = GAP) GLUCOSE (test code = 163 mg/dL 70-110 H GLU) BLOOD UREA NITROGEN 13 mg/dL 7-18 N (test code = BUN) GLOMERULAR 76.1 70-80 N The Glomerular FILTRATION RATE Filtration R ate is a (test code = GFR) calculated parameterbased on serum Creatinine, pat ient age and sex. GFR va luesless than 60 mL/min/ 1.73 square meters a re indicative ofCh ronic Kidney Disease. Values less than 15 mL/min/1.73squa re meters indicate Kidney failure. The calculation forGFR is based on the CKD-EPI (2020) calculat ion. This formulais race indifferent and is the recommended for [place] for GFRby the [facility] on for Adults.The GFR will not calculate if th e sex is unknown or if thepatient's ag e is <18 years. CREATININE (test 1.0 mg/dL 0.6-1.3 N code = CREAT) CALCIUM (test code = 9.0 mg/dL 8.0-10.5 N CA) [id number] 03:45:00 Test Item Value Reference Range Interpretation Comments MAGNESIUM (test code = MAG) 1.69 mg/dL 1.80-2.40 L CBC W/AUTO [id number] 03:41:00 Test Item Value Reference Range Interpretation Comments WHITE BLOOD CELL (test code = 9.1 x10 3/uL 4.5-11.0 N WBC) RED BLOOD CELL (test code = 2.62 x10 6/uL 4.00-5.60 L RBC) HEMOGLOBIN (test code = HGB) 8.3 g/dL 12.5-16.9 L HEMATOCRIT (test code = HCT) 24.7 % 37.5-50.7 L MEAN CELL VOLUME (test code = 94.3 fL 81.0-99.0 N MCV) MEAN CELL HGB (test code = MCH) 31.7 pg 27.0-33.0 N MEAN CELL HGB CONCETRATION 33.6 g/dL 33.0-37.0 N (test code = MCHC) RED CELL DISTRIBUTION WIDTH CV 14.7 % 11.5-14.5 H (test code = RDW) RED CELL DISTRIBUTION WIDTH SD 49.2 fL 37.0-54.0 N (test code = RDW-SD) PLATELET COUNT (test code = 265 x10 3/uL 150-400 N PLT) MEAN PLATELET VOLUME (test code 10.5 fL 7.0-9.0 H = MPV) NEUTROPHIL % (test code = NT%) 77.2 % 56.0-77.0 H IMMATURE GRANULOCYTE % (test 1.6 % 0.0-2.0 N code = IG%) LYMPHOCYTE % (test code = LY%) 11.2 % 14.0-32.0 L MONOCYTE % (test code = MO%) 8.4 % 4.8-9.0 N EOSINOPHIL % (test code = EO%) 1.5 % 0.3-3.7 N BASOPHIL % (test code = BA%) 0.1 % 0.0-2.0 N NUCLEATED RBC % (test code = 0.2 % 0-0 H NRBC%) NEUTROPHIL # (test code = NT#) 7.05 x10 3/uL 2.0-7.6 N IMMATURE GRANULOCYTE # (test 0.15 x10 3/uL 0.00-0.03 H code = IG#) LYMPHOCYTE # (test code = LY#) 1.02 x10 3/uL 1.0-3.8 N MONOCYTE # (test code = MO#) 0.77 x10 3/uL 0.1-0.8 N EOSINOPHIL # (test code = EO#) 0.14 x10 3/uL 0.0-0.2 N BASOPHIL # (test code = BA#) 0.01 x10 3/uL 0.0-0.2 N NUCLEATED RBC # (test code = 0.02 x10 3/uL 0.0-0.1 N NRBC#) MANUAL DIFF REQUIRED (test code NO = MDIFF) GLUCOSE [id number] 00:57:00 Test Item Value Reference Range Interpretation Comments GLUCOSE BEDSIDE (test 160 MG/DL 70-110 H Perfor med by certified code = GLUBED) 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 [facility] - XR CHEST 1 [id number] 00:00:00 [facility] 1940 Sex: M FAX: Kathya Hassan [phone] [place]: St: [facility] FAX: Sade Erwin MD [phone] Name: MONICA BECK [facility] : 1940 Age/S: 82/M [address] [place] [address] Blvd Unit #: [id number] Loc: DA Live [address] Phys: Sade Arana MD Acct: [id number] Dis Date: Status: ADM IN PHONE #: [phone] Exam Date: 10/03/2022519 FAX #: [phone] Reason: POST CABG/AVR, DAILY EVAL EXAMS: CPT CODE: [id number] XR CHEST 1 V [id number] PROCEDURE INFORMATION: Exam: XR Chest Exam date and time: 10/03/2022 5:20 AM Age: 82 years old Clinical indication: Other: Post cabg/avr, daily eval TECHNIQUE: Imaging protocol: Radiologic exam of the chest. Views: 1 view. COMPARISON: CR XR CHEST 1V 10/02/2022 5:59 AM FINDINGS: Lungs: New mild bilateral interstitial opacities. New left retrocardiac/basilar opacities. The other lung opacities are stable. Pleural spaces: Small pleural effusions could be present. No definite pneumothorax. Heart/Mediastinum: Stable heart size. Aortic valve replacement. Vasculature: Atherosclerotic calcifications. Bones/joints: Stable. Median sternotomy wires. IMPRESSION: New mild bilateral interstitial opacities, possibly mild volume overload. New nonspecific left retrocardiac/basilar opacities. at 0716 Reported and signed by: Greg Britton M.D. CC: Kathya Maria MD; Sade Arana MD Technologist: Susana Santos, RT(R) Trnscrd Date/Time/By: 10/03/2022 (0716) : By: [email or web address] Orig Print D/T: S: 10/03/2022 (16) PAGE 1 Signed ReportGLUCOSE [id number] 18:21:00 Test Item Value Reference Range Interpretation Comments GLUCOSE BEDSIDE (test 151 MG/DL 70-110 H Perfor med by certified code = GLUBED) 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 [facility] GLUCOSE [id number] 12:02:00 Test Item Value Reference Range Interpretation Comments GLUCOSE BEDSIDE (test 293 MG/DL 70-110 H Perfor med by certified code = GLUBED) 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 [facility] GLUCOSE [id number] 08:04:00 Test Item Value Reference Range Interpretation Comments GLUCOSE BEDSIDE (test 149 MG/DL 70-110 H Perfor med by certified code = GLUBED) 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 [facility] GLUCOSE [id number] 06:44:00 Test Item Value Reference Range Interpretation Comments GLUCOSE BEDSIDE (test 137 MG/DL 70-110 H Perfor med by certified code = GLUBED) 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 [facility] BASIC METABOLIC [id number] 03:55:00 Test Item Value Reference Range Interpretation Comments SODIUM (test code = 140 mEq/L 134-147 N NA) POTASSIUM (test code 4.2 mEq/L 3.4-5.0 N = K) CHLORIDE (test code 106 mEq/L 100-108 N = CL) CARBON DIOXIDE (test 30 mEq/l 21-33 N code = CO2) ANION GAP (test code 8 0-20 N = GAP) GLUCOSE (test code = 155 mg/dL 70-110 H GLU) BLOOD UREA NITROGEN 16 mg/dL 7-18 N (test code = BUN) GLOMERULAR 67.9 70-80 L The Glomerular FILTRATION RATE Filtration R ate is a (test code = GFR) calculated parameterbased on serum Creatinine, pat ient age and sex. GFR va luesless than 60 mL/min/ 1.73 square meters a re indicative ofCh ronic Kidney Disease. Values less than 15 mL/min/1.73squa re meters indicate Kidney failure. The calculation forGFR is based on the CKD-EPI (2020) calculat ion. This formulais race indifferent and is the recommended for [place] for GFRby the [facility] on for Adults.The GFR will not calculate if th e sex is unknown or if thepatient's ag e is <18 years. CREATININE (test 1.1 mg/dL 0.6-1.3 N code = CREAT) CALCIUM (test code = 9.1 mg/dL 8.0-10.5 N CA) HEPATIC FUNCTION [id number] 03:55:00 Test Item Value Reference Range Interpretation Comments TOTAL PROTEIN (test code = PROT) 5.9 g/dL 6.4-8.2 L ALBUMIN (test code = ALB) 3.10 g/dL 3.4-5.0 L BILIRUBIN TOTAL (test code = 0.60 mg/dL 0.0-1.0 N BILT) BILIRUBIN DIRECT (test code = 0.30 MG/DL 0.0-0.30 N BILD) BILIRUBIN INDIRECT (test code = 0.30 MG/DL BILIND) SGOT/AST (test code = AST) 58 IUnit/L 15-37 H SGPT/ALT (test code = ALT) 288 IUnit/L 30-65 H ALKALINE PHOSPHATASE TOTAL (test 89 IUnit/L 20-125 N code = ALKP) [id number] 03:55:00 Test Item Value Reference Range Interpretation Comments MAGNESIUM (test code = MAG) 1.90 mg/dL 1.80-2.40 N CBC W/AUTO [id number] 03:50:00 Test Item Value Reference Range Interpretation Comments WHITE BLOOD CELL (test code = 7.1 x10 3/uL 4.5-11.0 N WBC) RED BLOOD CELL (test code = 2.71 x10 6/uL 4.00-5.60 L RBC) HEMOGLOBIN (test code = HGB) 8.6 g/dL 12.5-16.9 L HEMATOCRIT (test code = HCT) 25.6 % 37.5-50.7 L MEAN CELL VOLUME (test code = 94.5 fL 81.0-99.0 N MCV) MEAN CELL HGB (test code = MCH) 31.7 pg 27.0-33.0 N MEAN CELL HGB CONCETRATION 33.6 g/dL 33.0-37.0 N (test code = MCHC) RED CELL DISTRIBUTION WIDTH CV 14.5 % 11.5-14.5 N (test code = RDW) RED CELL DISTRIBUTION WIDTH SD 49.3 fL 37.0-54.0 N (test code = RDW-SD) PLATELET COUNT (test code = 245 x10 3/uL 150-400 N PLT) MEAN PLATELET VOLUME (test code 10.6 fL 7.0-9.0 H = MPV) NEUTROPHIL % (test code = NT%) 72.4 % 56.0-77.0 N IMMATURE GRANULOCYTE % (test 2.8 % 0.0-2.0 H code = IG%) LYMPHOCYTE % (test code = LY%) 13.3 % 14.0-32.0 L MONOCYTE % (test code = MO%) 10.3 % 4.8-9.0 H EOSINOPHIL % (test code = EO%) 1.1 % 0.3-3.7 N BASOPHIL % (test code = BA%) 0.1 % 0.0-2.0 N NUCLEATED RBC % (test code = 0.8 % 0-0 H NRBC%) NEUTROPHIL # (test code = NT#) 5.11 x10 3/uL 2.0-7.6 N IMMATURE GRANULOCYTE # (test 0.20 x10 3/uL 0.00-0.03 H code = IG#) LYMPHOCYTE # (test code = LY#) 0.94 x10 3/uL 1.0-3.8 L MONOCYTE # (test code = MO#) 0.73 x10 3/uL 0.1-0.8 N EOSINOPHIL # (test code = EO#) 0.08 x10 3/uL 0.0-0.2 N BASOPHIL # (test code = BA#) 0.01 x10 3/uL 0.0-0.2 N NUCLEATED RBC # (test code = 0.06 x10 3/uL 0.0-0.1 N NRBC#) MANUAL DIFF REQUIRED (test code NO = MDIFF) GLUCOSE [id number] 00:22:00 Test Item Value Reference Range Interpretation Comments GLUCOSE BEDSIDE (test 223 MG/DL 70-110 H Perfor med by certified code = GLUBED) 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 : 1940 Age/S: 82/M [address] [place] [address] Unit #: [id number] Loc: [address] [place] [id number] Phys: Analilia Erwin Physic Acct: [id number] Dis Date: Status: ADM IN PHONE #: [phone] Exam Date: 10/02/2022739 FAX #: [phone] Reason: Cardiac Surgery Post Op EXAMS: CPT CODE: [id number] XR CHEST 1 V 19442 PROCEDURE INFORMATION: Exam: XR Chest Exam date and time: 10/02/2022 5:59 AM Age: 82 years old Clinical indication: Other: Cardiac surgery post op TECHNIQUE: Imaging protocol: Radiologic exam of the chest. Views: 1 view. COMPARISON: CR XR CHEST 1V 10/01/2022 5:40 AM FINDINGS: Lungs: Bilateral lung opacities have slightly improved. Pleural spaces: No pneumothorax. Questionable left pleural effusion. Heart/Mediastinum: The heart size is stable. 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 Bones/joints: Stable. IMPRESSION:Lungs slightly improved. at 0828 Reported and signed by: Varghese Johns M.D. 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 [facility] GLUCOSE [id number] 12:28:00 Test Item Value Reference Range Interpretation Comments GLUCOSE BEDSIDE (test 205 MG/DL 70-110 H Perfor med by certified code = GLUBED) 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 [facility] GLUCOSE [id number] 08:08:00 Test Item Value Reference Range Interpretation Comments GLUCOSE BEDSIDE (test 149 MG/DL 70-110 H Perfor med by certified code = GLUBED) 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 [facility] CBC W/AUTO [id number] 05:18:00 Test Item Value Reference Range Interpretation Comments WHITE BLOOD CELL (test code = 6.1 x10 3/uL 4.5-11.0 N WBC) RED BLOOD CELL (test code = 2.64 x10 6/uL 4.00-5.60 L RBC) HEMOGLOBIN (test code = HGB) 8.6 g/dL 12.5-16.9 L HEMATOCRIT (test code = HCT) 25.0 % 37.5-50.7 L MEAN CELL VOLUME (test code = 94.7 fL 81.0-99.0 N MCV) MEAN CELL HGB (test code = MCH) 32.6 pg 27.0-33.0 N MEAN CELL HGB CONCETRATION 34.4 g/dL 33.0-37.0 N (test code = MCHC) RED CELL DISTRIBUTION WIDTH CV 14.6 % 11.5-14.5 H (test code = RDW) RED CELL DISTRIBUTION WIDTH SD 50.0 fL 37.0-54.0 N (test code = RDW-SD) PLATELET COUNT (test code = 176 x10 3/uL 150-400 PLT) MEAN PLATELET VOLUME (test code 10.8 fL 7.0-9.0 H = MPV) NEUTROPHIL % (test code = NT%) 73.1 % 56.0-77.0 N IMMATURE GRANULOCYTE % (test 1.5 % 0.0-2.0 N code = IG%) LYMPHOCYTE % (test code = LY%) 12.9 % 14.0-32.0 L MONOCYTE % (test code = MO%) 9.8 % 4.8-9.0 H EOSINOPHIL % (test code = EO%) 2.5 % 0.3-3.7 N BASOPHIL % (test code = BA%) 0.2 % 0.0-2.0 N NUCLEATED RBC % (test code = 0.7 % 0-0 H NRBC%) NEUTROPHIL # (test code = NT#) 4.48 x10 3/uL 2.0-7.6 N IMMATURE GRANULOCYTE # (test 0.09 x10 3/uL 0.00-0.03 H code = IG#) LYMPHOCYTE # (test code = LY#) 0.79 x10 3/uL 1.0-3.8 L MONOCYTE # (test code = MO#) 0.60 x10 3/uL 0.1-0.8 N EOSINOPHIL # (test code = EO#) 0.15 x10 3/uL 0.0-0.2 N BASOPHIL # (test code = BA#) 0.01 x10 3/uL 0.0-0.2 N NUCLEATED RBC # (test code = 0.04 x10 3/uL 0.0-0.1 N NRBC#) MANUAL DIFF REQUIRED (test code NO = MDIFF) BASIC METABOLIC [id number] 04:53:00 Test Item Value Reference Range Interpretation Comments SODIUM (test code = 137 mEq/L 134-147 N NA) POTASSIUM (test code 4.2 mEq/L 3.4-5.0 N = K) CHLORIDE (test code 105 mEq/L 100-108 N = CL) CARBON DIOXIDE (test 27 mEq/l 21-33 N code = CO2) ANION GAP (test code 9 0-20 N = GAP) GLUCOSE (test code = 184 mg/dL 70-110 H GLU) BLOOD UREA NITROGEN 20 mg/dL 7-18 H (test code = BUN) GLOMERULAR 67.9 70-80 L The Glomerular FILTRATION RATE Filtration R ate is a (test code = GFR) calculated parameterbased on serum Creatinine, pat ient age and sex. GFR va luesless than 60 mL/min/ 1.73 square meters a re indicative ofCh ronic Kidney Disease. Values less than 15 mL/min/1.73squa re meters indicate Kidney failure. The calculation forGFR is based on the CKD-EPI (2020) calculat ion. This formulais race indifferent and is the recommended for [place] for GFRby the [facility] on for Adults.The GFR will not calculate if th e sex is unknown or if thepatient's ag e is <18 years. CREATININE (test 1.1 mg/dL 0.6-1.3 N code = CREAT) CALCIUM (test code = 8.7 mg/dL 8.0-10.5 N CA) HEPATIC FUNCTION [id number] 04:53:00 Test Item Value Reference Range Interpretation Comments TOTAL PROTEIN (test code = PROT) 5.7 g/dL 6.4-8.2 L ALBUMIN (test code = ALB) 3.20 g/dL 3.4-5.0 L BILIRUBIN TOTAL (test code = 0.60 mg/dL 0.0-1.0 N BILT) BILIRUBIN DIRECT (test code = 0.30 MG/DL 0.0-0.30 N BILD) BILIRUBIN INDIRECT (test code = 0.30 MG/DL BILIND) SGOT/AST (test code = AST) 85 IUnit/L 15-37 H SGPT/ALT (test code = ALT) 390 IUnit/L 30-65 H ALKALINE PHOSPHATASE TOTAL (test 75 IUnit/L 20-125 N code = ALKP) [id number] 04:53:00 Test Item Value Reference Range Interpretation Comments MAGNESIUM (test code = MAG) 1.93 mg/dL 1.80-2.40 N - XR CHEST 1 [id number] 00:00:00 [facility] 1940 Sex: M FAX: Kathya Hassan [phone] [place]: St: ADM FAX: Analilia Crowell [facility] [phone] Name: MONICA BECK [facility] : 1940 Age/S: 82/M [address] [place] [address] Blvd Unit #: [id number] Loc: [address] [place] [address] Phys: Analilia Erwin Physic Acct: [id number] Dis Date: Status: ADM IN PHONE #: [phone] Exam Date: 10/01/2022729 FAX #: [phone] Reason: Cardiac Surgery Post Op EXAMS: CPT CODE: [id number] XR CHEST 1 V [id number] PROCEDURE INFORMATION: Exam: XR Chest Exam date and time: 10/01/2022 5:40 AM Age: 82 years old Clinical indication: Other: Cardiac surgery post op TECHNIQUE: Imaging protocol: Radiologic exam of the chest. Views: 1 view. COMPARISON: CR XR CHEST 1V 09/30/2022 5:48 AM FINDINGS: Tubes, catheters and devices: Removal of mediastinum to left-sided drainage catheter. Surgical clips overlie the mediastinum. Removal of right neck catheter. Lungs: Lung volumes are decreased. Linear density identified within bilateral lungs. Mild bilateral perihilar and basilar interstitial lung opacities, suggesting pulmonary edema versus infiltrates. The peripheral lungs are otherwise clear. No consolidation. Pleural spaces: Minimal volume of pleural fluid is demonstrated within the right side. No other pleural effusion or pneumothorax identified. Heart/Mediastinum: Cardiac silhouette appears moderately enlarged. Vasculature: Tortuous and ectatic aorta is demonstrated. Severe atherosclerotic calcification and plaque demonstrated within the aorta. Bones/joints: Sternotomy wires, hardware is demonstrated. IMPRESSION: 1. Moderate enlarged cardiac silhouette. 2. Linear bilateral chest pulmonary atelectasis, or scarring. 3. Minimal right pleural effusion. 4. Mild interstitial pulmonary edema versus infiltrates. at 0810 Reported and signed by: Nayan Jacobsen M.D. 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 [facility] GLUCOSE [id number] 12:02:00 Test Item Value Reference Range Interpretation Comments GLUCOSE BEDSIDE (test 219 MG/DL 70-110 H Perfor med by certified code = GLUBED) 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 [facility] CBC W/AUTO [id number] 09:24:00 Test Item Value Reference Range Interpretation Comments WHITE BLOOD CELL (test code = 5.7 x10 3/uL 4.5-11.0 N WBC) RED BLOOD CELL (test code = 2.57 x10 6/uL 4.00-5.60 L RBC) HEMOGLOBIN (test code = HGB) 8.3 g/dL 12.5-16.9 L HEMATOCRIT (test code = HCT) 24.2 % 37.5-50.7 L MEAN CELL VOLUME (test code = 94.2 fL 81.0-99.0 N MCV) MEAN CELL HGB (test code = MCH) 32.3 pg 27.0-33.0 N MEAN CELL HGB CONCETRATION 34.3 g/dL 33.0-37.0 N (test code = MCHC) RED CELL DISTRIBUTION WIDTH CV 14.8 % 11.5-14.5 H (test code = RDW) RED CELL DISTRIBUTION WIDTH SD 50.2 fL 37.0-54.0 N (test code = RDW-SD) PLATELET COUNT (test code = 82 x10 3/uL 150-400 L PLT) MEAN PLATELET VOLUME (test code 11.8 fL 7.0-9.0 H = MPV) NEUTROPHIL % (test code = NT%) 78.0 % 56.0-77.0 H IMMATURE GRANULOCYTE % (test 0.7 % 0.0-2.0 N code = IG%) LYMPHOCYTE % (test code = LY%) 13.2 % 14.0-32.0 L MONOCYTE % (test code = MO%) 6.5 % 4.8-9.0 N EOSINOPHIL % (test code = EO%) 1.4 % 0.3-3.7 N BASOPHIL % (test code = BA%) 0.2 % 0.0-2.0 N NUCLEATED RBC % (test code = 0.4 % 0-0 H NRBC%) NEUTROPHIL # (test code = NT#) 4.45 x10 3/uL 2.0-7.6 N IMMATURE GRANULOCYTE # (test 0.04 x10 3/uL 0.00-0.03 H code = IG#) LYMPHOCYTE # (test code = LY#) 0.75 x10 3/uL 1.0-3.8 L MONOCYTE # (test code = MO#) 0.37 x10 3/uL 0.1-0.8 N EOSINOPHIL # (test code = EO#) 0.08 x10 3/uL 0.0-0.2 N BASOPHIL # (test code = BA#) 0.01 x10 3/uL 0.0-0.2 N NUCLEATED RBC # (test code = 0.02 x10 3/uL 0.0-0.1 N NRBC#) MANUAL DIFF REQUIRED (test code NO = MDIFF) PLT [id number] 09:24:00 Test Item Value Reference Range Interpretation Comments PLATELET ESTIMATE (test code = THOUSAND ADEQUATE PLTEST) GLUCOSE [id number] 06:50:00 Test Item Value Reference Range Interpretation Comments GLUCOSE BEDSIDE (test 197 MG/DL 70-110 H Perfor med by certified code = GLUBED) 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 [facility] BASIC METABOLIC [id number] 03:30:00 Test Item Value Reference Range Interpretation Comments SODIUM (test code = 133 mEq/L 134-147 L NA) POTASSIUM (test code 4.4 mEq/L 3.4-5.0 N = K) CHLORIDE (test code 104 mEq/L 100-108 N = CL) CARBON DIOXIDE (test 26 mEq/l 21-33 N code = CO2) ANION GAP (test code 7 0-20 N = GAP) GLUCOSE (test code = 202 mg/dL 70-110 H GLU) BLOOD UREA NITROGEN 28 mg/dL 7-18 H (test code = BUN) GLOMERULAR 55.5 70-80 L The Glomerular FILTRATION RATE Filtration R ate is a (test code = GFR) calculated parameterbased on serum Creatinine, pat ient age and sex. GFR va luesless than 60 mL/min/ 1.73 square meters a re indicative ofCh ronic Kidney Disease. Values less than 15 mL/min/1.73squa re meters indicate Kidney failure. The calculation forGFR is based on the CKD-EPI (2020) calculat ion. This formulais race indifferent and is the recommended for [place] for GFRby the [facility] Kidney Foundati on for Adults.The GFR will not calculate if th e sex is unknown or if thepatient's ag e is <18 years. CREATININE (test 1.3 mg/dL 0.6-1.3 N code = CREAT) CALCIUM (test code = 8.7 mg/dL 8.0-10.5 N CA) HEPATIC FUNCTION [id number] 03:30:00 Test Item Value Reference Range Interpretation Comments TOTAL PROTEIN (test code = PROT) 5.3 g/dL 6.4-8.2 L ALBUMIN (test code = ALB) 3.10 g/dL 3.4-5.0 L BILIRUBIN TOTAL (test code = 0.50 mg/dL 0.0-1.0 N BILT) BILIRUBIN DIRECT (test code = 0.30 MG/DL 0.0-0.30 N BILD) BILIRUBIN INDIRECT (test code = 0.20 MG/DL BILIND) SGOT/AST (test code = AST) 244 IUnit/L 15-37 H SGPT/ALT (test code = ALT) 544 IUnit/L 30-65 H ALKALINE PHOSPHATASE TOTAL (test 56 IUnit/L 20-125 N code = ALKP) [id number] 03:30:00 Test Item Value Reference Range Interpretation Comments MAGNESIUM (test code = MAG) 2.11 mg/dL 1.80-2.40 N - XR CHEST 1 [id number] 00:00:00 [facility] : 1940 Sex: M FAX: Kathya Hassan [phone] [place]: St: ADM FAX: Analilia Crowell [facility] [phone] Name: MONICA BECK [facility] : 1940 Age/S: 82/M [address] [place] [address] Unit #: [id number] Loc: G.2[address] [place] [address] Phys: Analilia Erwin Physic Acct: [id number] Dis Date: Status: ADM IN PHONE #: [phone] Exam Date: 09/30/2022721 FAX #: [phone] Reason: Cardiac Surgery Post Op EXAMS: CPT CODE: [id number] XR CHEST 1 V 20309 PROCEDURE INFORMATION: Exam: XR Chest Exam date and time:09/30/2022 5:48 AM Age: 82 years old Clinical indication: Other: Cardiac surgery post op TECHNIQUE: Imaging protocol: Radiologic exam of the chest. Views: 1 view. COMPARISON: CR XR CHEST 1V 09/29/2022 5:02 AM FINDINGS: Tubes, catheters and devices: Support lines and tubes unchanged and in appropriate position. Lungs: Bilateral lung opacities have not significantly changed when allowing for differences in technique. Pleural spaces: No pneumothorax. Questionable left pleural effusion. Heart/Mediastinum:The heart size is stable. 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 Bones/joints: Stable. IMPRESSION: No significant change when allowing for differences in technique. at 1422 Reported and signed by: Varghese Johns M.D. 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 [facility] RENAL FUNCTION [id number] 18:03:00 Test Item Value Reference Range Interpretation Comments SODIUM (test code = 132 mEq/L 134-147 L NA) POTASSIUM (test code 4.8 mEq/L 3.4-5.0 N = K) CHLORIDE (test code = 104 mEq/L 100-108 N CL) CARBON DIOXIDE (test 25 mEq/l 21-33 N code = CO2) ANION GAP (test code 8 0-20 N = GAP) GLUCOSE (test code = 215 mg/dL 70-110 H GLU) BLOOD UREA NITROGEN 29 mg/dL 7-18 H (test code = BUN) GLOMERULAR FILTRATION 46.8 70-80 L The Gl omerular RATE (test code = Filtration Rate is a GFR) calculated parameterbased on serum Creatinine, pat ient age and sex. GFR va luesless than 60 mL/min/ 1.73 square meters a re indicative ofCh ronic Kidney Disease. Values less than 15 mL/min/1.73squa re meters indicate Kidney failure. The calculation for GFR is based on the CK D-EPI (2020) calculat ion. This formulais race indifferent and is the recommended for philipp for GFRby the [facility] Kidney Foundati on for Adults.The GFR will not calculate if th e sex is unknown or if thepatient's ag e is <18 years. 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 [facility] BASIC METABOLIC [id number] 03:55:00 Test Item Value Reference Range Interpretation Comments SODIUM (test code = 135 mEq/L 134-147 N NA) POTASSIUM (test code 4.6 mEq/L 3.4-5.0 N = K) CHLORIDE (test code 107 mEq/L 100-108 N = CL) CARBON DIOXIDE (test 26 mEq/l 21-33 N code = CO2) ANION GAP (test code 6 0-20 N = GAP) GLUCOSE (test code = 107 mg/dL 70-110 GLU) BLOOD UREA NITROGEN 23 mg/dL 7-18 H (test code = BUN) GLOMERULAR 46.8 70-80 L The Glomerular FILTRATION RATE Filtration R ate is a (test code = GFR) calculated parameterbased on serum Creatinine, pat ient age and sex. GFR va luesless than 60 mL/min/ 1.73 square meters a re indicative ofCh ronic Kidney Disease. Values less than 15 mL/min/1.73squa re meters indicate Kidney failure. The calculation forGFR is based on the CKD-EPI (2020) calculat ion. This formulais race indifferent and is the recommended for philipp for GFRby the [facility] Kidney Foundati on for Adults.The GFR will not calculate if th e sex is unknown or if thepatient's ag e is <18 years. CREATININE (test 1.5 mg/dL 0.6-1.3 H code = CREAT) CALCIUM (test code = 8.6 mg/dL 8.0-10.5 N CA) COMMENTS: POD #1HEPATIC FUNCTION [id number] 03:55:00 Test Item Value Reference Range Interpretation Comments TOTAL PROTEIN (test code = PROT) 5.3 g/dL 6.4-8.2 L ALBUMIN (test code = ALB) 3.40 g/dL 3.4-5.0 N BILIRUBIN TOTAL (test code = 0.60 mg/dL 0.0-1.0 N BILT) BILIRUBIN DIRECT (test code = 0.30 MG/DL 0.0-0.30 N BILD) BILIRUBIN INDIRECT (test code = 0.30 MG/DL BILIND) SGOT/AST (test code = AST) 411 IUnit/L 15-37 H SGPT/ALT (test code = ALT) 402 IUnit/L 30-65 H ALKALINE PHOSPHATASE TOTAL (test 39 IUnit/L 20-125 N code = ALKP) COMMENTS: POD #[id number] 03:55:00 Test Item Value Reference Range Interpretation Comments MAGNESIUM (test code = MAG) 2.48 mg/dL 1.80-2.40 H COMMENTS: POD #1CBC W/AUTO [id number] 03:49:00 Test Item Value Reference Range Interpretation Comments WHITE BLOOD CELL (test code = 7.2 x10 3/uL 4.5-11.0 N WBC) RED BLOOD CELL (test code = 2.32 x10 6/uL 4.00-5.60 L RBC) HEMOGLOBIN (test code = HGB) 7.3 g/dL 12.5-16.9 L HEMATOCRIT (test code = HCT) 22.0 % 37.5-50.7 L MEAN CELL VOLUME (test code = 94.8 fL 81.0-99.0 N MCV) MEAN CELL HGB (test code = MCH) 31.5 pg 27.0-33.0 N MEAN CELL HGB CONCETRATION 33.2 g/dL 33.0-37.0 N (test code = MCHC) RED CELL DISTRIBUTION WIDTH CV 14.6 % 11.5-14.5 H (test code = RDW) RED CELL DISTRIBUTION WIDTH SD 50.7 fL 37.0-54.0 N (test code = RDW-SD) PLATELET COUNT (test code = 108 x10 3/uL 150-400 L PLT) MEAN PLATELET VOLUME (test code 11.9 fL 7.0-9.0 H = MPV) NEUTROPHIL % (test code = NT%) 82.8 % 56.0-77.0 H IMMATURE GRANULOCYTE % (test 0.6 % 0.0-2.0 N code = IG%) LYMPHOCYTE % (test code = LY%) 9.9 % 14.0-32.0 L MONOCYTE % (test code = MO%) 6.3 % 4.8-9.0 N EOSINOPHIL % (test code = EO%) 0.3 % 0.3-3.7 N BASOPHIL % (test code = BA%) 0.1 % 0.0-2.0 N NUCLEATED RBC % (test code = 0.0 % 0-0 N NRBC%) NEUTROPHIL # (test code = NT#) 5.95 x10 3/uL 2.0-7.6 N IMMATURE GRANULOCYTE # (test 0.04 x10 3/uL 0.00-0.03 H code = IG#) LYMPHOCYTE # (test code = LY#) 0.71 x10 3/uL 1.0-3.8 L MONOCYTE # (test code = MO#) 0.45 x10 3/uL 0.1-0.8 N EOSINOPHIL # (test code = EO#) 0.02 x10 3/uL 0.0-0.2 N BASOPHIL # (test code = BA#) 0.01 x10 3/uL 0.0-0.2 N NUCLEATED RBC # (test code = 0.00 x10 3/uL 0.0-0.1 N NRBC#) MANUAL DIFF REQUIRED (test code NO = MDIFF) GLUCOSE [id number] 01:07:00 Test Item Value Reference Range Interpretation Comments GLUCOSE BEDSIDE (test 151 MG/DL 70-110 H Perfor med by certified code = GLUBED) 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 : 1940 Age/S: 82/M [address] [place] [address] Unit #: [id number] Loc: G.[address] [place] [address] Phys: Analilia Erwin [facility] Acct: [id number] Dis Date: Status: ADM IN PHONE #: [phone] Exam Date: 09/29/2022 0504 FAX #: [phone] Reason: Cardiac Surgery Post Op Report Has Been Amended EXAMS: CPT CODE: [id number] XR CHEST 1 V 78139 Addendum - 09/29/2022 SIGNED 09/29/2022 ADDENDUM: [id number] RAD/CXR1 Report discussed with ordering clinician by telephone at 7:37 a.m. on 09/29/2022. at 0737 Reported and signed by: Mauri Walsh M.D. Report PROCEDURE INFORMATION: Exam: XR Chest Exam date and time: 09/29/2022 5:02 AM Age: 82 years old Clinical indication: Other: Cardiac surgery postop TECHNIQUE: Imaging protocol: Radiologic exam of the chest. Views: 1 view. COMPARISON: CR XR [id number] 09/28/2022 5:12 AM FINDINGS: Tubes, catheters and devices: Right jugular central fine and chest tube in place. Lungs: Slightly increased dependent opacities, particularly on the right. Pleural spaces: No pneumothorax or significant pleural effusion. Heart/Mediastinum: Stable cardiomediastinal silhouette. Bones/joints: Median sternotomy wires. No acute bony abnormality. Intraperitoneal space: Pneumoperitoneum, with air noted beneath both diaphragm. IMPRESSION: Interval development of pneumoperitoneum. I have initiated contact with clinical staff to relay this critical finding. Pending callback. PAGE 1 Signed Report (CONTINUED) FAX: Kathya Hassan [phone] [place]: St: ADM FAX: Analilia Crowell [facility] [phone] Name: MONICA BECK DOCOURTNEYJohn [facility] : 1940 Age/S: 82/M [address] [place] [address] Unit #: [id number] Loc: G.[address] [place] [address] Phys: Analilia Erwin Physic Acct: [id number] Dis Date: Status: ADM IN PHONE #: [phone] Exam Date: 09/29/2022 0508 FAX #: [phone] Reason:Cardiac Surgery Post Op Report Has Been Amended EXAMS: CPT CODE: [id number] XR CHEST 1 V 22442 (Continued) at 0728 Reported and signed by: Mauri Walsh M.D. 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 [facility] POC ARTERIAL BLOOD [id number] 20:38:00 Test Item Value Reference Range Interpretation Comments POC ARTERIAL BLOOD GAS PH (test 7.443 7.35-7.45 N code = POCPHA) POC ARTERIAL BLOOD GAS PCO2 33.2 mmHg 35.0-45 L (test code = [id number]) POC TCO2 ARTERIAL (test code = 23.8 POCTCO2) POC ARTERIAL BLOOD GAS PO2 (test 75.7 mmHg 80-100.0 L code = MLVYT4D) POC HCO3 ARTERIAL (test code = 22.8 MMOL/L 22.0-26.0 N [id number]) POC BASE EXCESS (test code = -1.4 MMOL/L -4.0-4.0 N POCBEA) POC O2 SATURATION (test code = 96.0 % 90-100 N POCO2S) FIO2 (test code = FIO2A) 32 % PaO2/FiO2 (test code = [id number]) 236.56 mm/Hg ABG DELIVERY (test code = LELO) HFNC ABG TEMPERATURE (test code = 97.8 F TEMPA) ABG SITE (test code = SITEA) Art Line BASIC METABOLIC [id number] 20:38:00 Test Item Value Reference Range Interpretation Comments SODIUM (test code = NA/ABG) 137 mmol/L 134-147 N POTASSIUM (test code = K/ABG) 4.1 mmol/L 3.4-5.0 N CHLORIDE (test code = CL/ABG) 103 mmol/L 100-108 N CREATININE ABG (test code = 1.0 mg/dL 0.8-1.3 N CREAABG) POC IONIZED CALCIUM (test code = 1.26 MMOL/L 1.12-1.32 N POCCA) POC GLUCOSE (test code = POCGLU) 143 MG/DL 70-110 H HEMOGLOBIN [id number] 20:38:00 Test Item Value Reference Range Interpretation Comments HEMOGLOBIN ABG (test code = HGB/ABG) 7.2 G/DL 12.5-16.9 L [id number] 20:38:00 Test Item Value Reference Range Interpretation Comments HEMATOCRIT (test code = HCT/ABG) 21 % 37.5-50.7 L POC LACTIC [id number] 20:38:00 Test Item Value Reference Range Interpretation Comments POC LACTIC ACID (test code = 0.9 mmol/l 0.9-1.7 N POCLAC) BASIC METABOLIC [id number] 18:34:00 Test Item Value Reference Range Interpretation Comments SODIUM (test code = 135 mEq/L 134-147 N NA) POTASSIUM (test code 4.2 mEq/L 3.4-5.0 N = K) CHLORIDE (test code 104 mEq/L 100-108 N = CL) CARBON DIOXIDE (test 24 mEq/l 21-33 N code = CO2) ANION GAP (test code 11 0-20 N = GAP) GLUCOSE (test code = 196 mg/dL 70-110 H GLU) BLOOD UREA NITROGEN 21 mg/dL 7-18 H (test code = BUN) GLOMERULAR 46.8 70-80 L The Glomerular FILTRATION RATE Filtration R ate is a (test code = GFR) calculated parameterbased on serum Creatinine, pat ient age and sex. GFR va luesless than 60 mL/min/ 1.73 square meters a re indicative ofCh ronic Kidney Disease. Values less than 15 mL/min/1.73squa re meters indicate Kidney failure. The calculation forGFR is based on the CKD-EPI (2020) calculat ion. This formulais race indifferent and is the recommended for [place] for GFRby the [facility] on for Adults.The GFR will not calculate if th e sex is unknown or if thepatient's ag e is <18 years. 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 [facility] BASIC METABOLIC [id number] 13:39:00 Test Item Value Reference Range Interpretation Comments SODIUM (test code = 135 mEq/L 134-147 N NA) POTASSIUM (test code 4.4 mEq/L 3.4-5.0 N = K) CHLORIDE (test code 105 mEq/L 100-108 N = CL) CARBON DIOXIDE (test 26 mEq/l 21-33 N code = CO2) ANION GAP (test code 8 0-20 N = GAP) GLUCOSE (test code = 222 mg/dL 70-110 H GLU) BLOOD UREA NITROGEN 17 mg/dL 7-18 N (test code = BUN) GLOMERULAR 55.5 70-80 L The Glomerular FILTRATION RATE Filtration R ate is a (test code = GFR) calculated parameterbased on serum Creatinine, pat ient age and sex. GFR va luesless than 60 mL/min/ 1.73 square meters a re indicative ofCh ronic Kidney Disease. Values less than 15 mL/min/1.73squa re meters indicate Kidney failure. The calculation forGFR is based on the CKD-EPI (2020) calculat ion. This formulais race indifferent and is the recommended for [place] for GFRby the Nat nal Kidney Foundati on for Adults.The GFR will not calculate if th e sex is unknown or if thepatient's ag e is <18 years. CREATININE (test 1.3 mg/dL 0.6-1.3 N code = CREAT) CALCIUM (test code = 9.1 mg/dL 8.0-10.5 N CA) UR SODIUM [id number] 13:24:00 Test Item Value Reference Range Interpretation Comments UR SODIUM RANDOM 32 MEQ/L The Referen ce Range and (test code = DEMETRIA) Method Per formance specificationsh ave not been established for this fluid. The test result should be correlated into the clinical context forinte rpretation. UR CREATININE [id number] 13:24:00 Test Item Value Reference Range Interpretation Comments UR CREATININE 182.6 mg/dL The Reference Range and RANDOM (test code Method Per formance = CREATU) specificationsh ave not been establishe d for this fluid. The test resultshould be correlated into the clinical contex t forinterpretati on. [id number] 12:20:00 Test Item Value Reference Interpretation Comments Range SURGICAL (test code = SR) RUN DATE: 09/28/22 [place] - LAB PAGE 1 RUN TIME: 1220 Specimen Inquiry RUN USER: INTERFACE PATIENT: MONICA BECK LOC: [facility] U #: [id number] AGE/SX: 82/M ROOM: [facility] [place] RE09/24/22REG DR: Kathya Maria : 44 BED: 1 DIS: STATUS: ADM IN TLOC: SPEC #: [id number] RECD: 09/27/22 STATUS: COLTON [place] #: [id number] RADHA: 09/26/22- SUBM DR: Kathya Maria MD ENTERED: 09/27/22 SP TYPE: SURGICAL OTHR DR: Self Referred Jakob Pa MD, Christopher A DO Mouchli, Anas MDORDERED: [id number], 20602, ANATOMIC SPEC COPIES TO: Self Referred Jakob Pa MD [address] [id number] [place] [address] [facility] [address] [place] [address] Kathya Maria MD [address] [place] [address]. [address] [place] [address] Milton Mast MD [address] [place] [address] [id number] PROCEDURES: 85681 (09/27/22) 93301 (09/27/22) TISSUES: A. ATRIUM - LEFT ATRIAL APPENDAGE B. AORTIC VALVE - LEAFLETS CLINICAL HISTORY SAME CONTINUED ON NEXT PAGE RUN DATE: 09/28/22 [facility] PAGE 2 RUN TIME: 1220 Specimen Inquiry RUN USER: INTERFACE SPEC #: [id number] PATIENT: MONICA BECK #[id number] (Continued) - FINAL DIAGNOSIS Left atrial appendage, segment: Hypertrophic changes, moderate intimal thickening andischemic changes. Aortic leaflets, segments: Marked degenerative changes with calcifications. GROSS DESCRIPTION 1. Left atrial appendage is 1 segment of pink-chris and yellow soft tissue measuring 3.5 cmin largest dimension. Sections are submitted as A. 2. Aortic leaflets are multiple segments of chisholm-white tissue measuring 3.2 cm in largestdimension in aggregate. Sections are submitted in B. Technical component performed at [address] [address] Unless gross only, the diagnosis is based upon microscopic examination.Immunohistochemistry: This test was developed and its performance characteristicsdetermined by this laboratory. It has not been approved nor does it need approvalby the [place] FDA. Appropriate positive and negative controls are reviewed and judgedto be acceptable for performedimmunohistochemistry and/or special stains. This laboratoryis certified under the Clinical Laboratory Improvement Amendments (CLIA-88) as qualified toperform high complexity clinical laboratory testing. CLINICAL INFORMATION CORONARY ARTERY DISEASE. 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 Disre ronny previous result/results* Previously reported result : 8.2 g/dLEdited by: CRAIG on 09/28/22:822: HGB previously reported as: 8. 2 L g/dL HEMATOCRIT (test TEST NOT 37.5-50.7 L Previously code = HCT) PERFORMED % reported result : 23.9 %Edited by : CRAIG on 09/28/22:822: HCT previously reported as: 23 .9 L % CBC W/AUTO [id number] 08:22:00 Test Item Value Reference Range Interpretation Comments WHITE BLOOD CELL (test code = 9.2 x10 3/uL 4.5-11.0 N WBC) RED BLOOD CELL (test code = 2.56 x10 6/uL 4.00-5.60 L RBC) HEMOGLOBIN (test code = HGB) 8.2 g/dL 12.5-16.9 L HEMATOCRIT (test code = HCT) 23.8 % 37.5-50.7 L MEAN CELL VOLUME (test code = 93.0 fL 81.0-99.0 N MCV) MEAN CELL HGB (test code = MCH) 32.0 pg 27.0-33.0 N MEAN CELL HGB CONCETRATION 34.5 g/dL 33.0-37.0 N (test code = MCHC) RED CELL DISTRIBUTION WIDTH CV 14.5 % 11.5-14.5 N (test code = RDW) RED CELL DISTRIBUTION WIDTH SD 49.5 fL 37.0-54.0 N (test code = RDW-SD) PLATELET COUNT (test code = 96 x10 3/uL 150-400 L PLT) IMMATURE PLATELET FRACTION 8.1 % 0.9-11.2 N (test code = IPF) MEAN PLATELET VOLUME (test code 11.8 fL 7.0-9.0 H = MPV) NEUTROPHIL % (test code = NT%) 84.2 % 56.0-77.0 H IMMATURE GRANULOCYTE % (test 0.5 % 0.0-2.0 N code = IG%) LYMPHOCYTE % (test code = LY%) 6.9 % 14.0-32.0 L MONOCYTE % (test code = MO%) 8.3 % 4.8-9.0 N EOSINOPHIL % (test code = EO%) 0.0 % 0.3-3.7 L BASOPHIL % (test code = BA%) 0.1 % 0.0-2.0 N NUCLEATED RBC % (test code = 0.0 % 0-0 N NRBC%) NEUTROPHIL # (test code = NT#) 7.77 x10 3/uL 2.0-7.6 H IMMATURE GRANULOCYTE # (test 0.05 x10 3/uL 0.00-0.03 H code = IG#) LYMPHOCYTE # (test code = LY#) 0.64 x10 3/uL 1.0-3.8 L MONOCYTE # (test code = MO#) 0.77 x10 3/uL 0.1-0.8 N EOSINOPHIL # (test code = EO#) 0.00 x10 3/uL 0.0-0.2 N BASOPHIL # (test code = BA#) 0.01 x10 3/uL 0.0-0.2 N NUCLEATED RBC # (test code = 0.00 x10 3/uL 0.0-0.1 N NRBC#) MANUAL DIFF REQUIRED (test code NO = MDIFF) GLUCOSE [id number] 07:48:00 Test Item Value Reference Range Interpretation Comments GLUCOSE BEDSIDE (test 162 MG/DL 70-110 H Perfor med by certified code = GLUBED) 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 [facility] CBC W/AUTO [id number] 02:57:00 Test Item Value Reference Range Interpretation Comments WHITE BLOOD CELL (test code = 7.3 x10 3/uL 4.5-11.0 N WBC) RED BLOOD CELL (test code = 2.45 x10 6/uL 4.00-5.60 L RBC) HEMOGLOBIN (test code = HGB) 7.8 g/dL 12.5-16.9 L HEMATOCRIT (test code = HCT) 22.9 % 37.5-50.7 L MEAN CELL VOLUME (test code = 93.5 fL 81.0-99.0 N MCV) MEAN CELL HGB (test code = MCH) 31.8 pg 27.0-33.0 N MEAN CELL HGB CONCETRATION 34.1 g/dL 33.0-37.0 N (test code = MCHC) RED CELL DISTRIBUTION WIDTH CV 14.4 % 11.5-14.5 N (test code = RDW) RED CELL DISTRIBUTION WIDTH SD 48.7 fL 37.0-54.0 N (test code = RDW-SD) PLATELET COUNT (test code = 82 x10 3/uL 150-400 L PLT) IMMATURE PLATELET FRACTION 6.5 % 0.9-11.2 N (test code = IPF) MEAN PLATELET VOLUME (test code 11.6 fL 7.0-9.0 H = MPV) NEUTROPHIL % (test code = NT%) 84.2 % 56.0-77.0 H IMMATURE GRANULOCYTE % (test 0.4 % 0.0-2.0 N code = IG%) LYMPHOCYTE % (test code = LY%) 8.1 % 14.0-32.0 L MONOCYTE % (test code = MO%) 7.2 % 4.8-9.0 N EOSINOPHIL % (test code = EO%) 0.0 % 0.3-3.7 L BASOPHIL % (test code = BA%) 0.1 % 0.0-2.0 N NUCLEATED RBC % (test code = 0.0 % 0-0 N NRBC%) NEUTROPHIL # (test code = NT#) 6.10 x10 3/uL 2.0-7.6 N IMMATURE GRANULOCYTE # (test 0.03 x10 3/uL 0.00-0.03 N code = IG#) LYMPHOCYTE # (test code = LY#) 0.59 x10 3/uL 1.0-3.8 L MONOCYTE # (test code = MO#) 0.52 x10 3/uL 0.1-0.8 N EOSINOPHIL # (test code = EO#) 0.00 x10 3/uL 0.0-0.2 N BASOPHIL # (test code = BA#) 0.01 x10 3/uL 0.0-0.2 N NUCLEATED RBC # (test code = 0.00 x10 3/uL 0.0-0.1 N NRBC#) MANUAL DIFF REQUIRED (test code NO = MDIFF) PLT [id number] 02:57:00 Test Item Value Reference Range Interpretation Comments PLATELET ESTIMATE (test code 88-110 THOUSAND ADEQUATE = PLTEST) PLATELET MORPHOLOGY (test LARGE PLATELETS code = PLTMORPH) BASIC METABOLIC [id number] 02:48:00 Test Item Value Reference Range Interpretation Comments SODIUM (test code = 136 mEq/L 134-147 N NA) POTASSIUM (test code 4.3 mEq/L 3.4-5.0 N = K) CHLORIDE (test code 108 mEq/L 100-108 N = CL) CARBON DIOXIDE (test 24 mEq/l 21-33 N code = CO2) ANION GAP (test code 8 0-20 N = GAP) GLUCOSE (test code = 149 mg/dL 70-110 H GLU) BLOOD UREA NITROGEN 15 mg/dL 7-18 (test code = BUN) GLOMERULAR 67.9 70-80 L The Glomerular FILTRATION RATE Filtration R ate is a (test code = GFR) calculated parameterbased on serum Creatinine, pat ient age and sex. GFR va luesless than 60 mL/min/ 1.73 square meters a re indicative ofCh ronic Kidney Disease. Values less than 15 mL/min/1.73squa re meters indicate Kidney failure. The calculation forGFR is based on the CKD-EPI (2020) calculat ion. This formulais race indifferent and is the recommended for [place] for GFRby the Natio nal Kidney Foundati on for Adults.The GFR will not calculate if th e sex is unknown or if thepatient's ag e is <18 years. CREATININE (test 1.1 mg/dL 0.6-1.3 N code = CREAT) CALCIUM (test code = 9.2 mg/dL 8.0-10.5 N CA) COMMENTS: POD #1HEPATIC FUNCTION [id number] 02:48:00 Test Item Value Reference Range Interpretation Comments TOTAL PROTEIN (test code = PROT) 5.4 g/dL 6.4-8.2 L ALBUMIN (test code = ALB) 3.70 g/dL 3.4-5.0 N BILIRUBIN TOTAL (test code = BILT) 0.70 mg/dL 0.0-1.0 N BILIRUBIN DIRECT (test code = 0.40 MG/DL 0.0-0.30 H BILD) BILIRUBIN INDIRECT (test code = 0.30 MG/DL BILIND) SGOT/AST (test code = AST) 26 IUnit/L 15-37 N SGPT/ALT (test code = ALT) 18 IUnit/L 30-65 L ALKALINE PHOSPHATASE TOTAL (test 33 IUnit/L 20-125 N code = ALKP) COMMENTS: POD #[id number] 02:48:00 Test Item Value Reference Range Interpretation Comments MAGNESIUM (test code = MAG) 2.14 mg/dL 1.80-2.40 N COMMENTS: POD #1CALCIUM [id number] 02:40:00 Test Item Value Reference Range Interpretation Comments CALCIUM IONIZED (test code = DONOVAN) 1.17 MMOL/L 1.09-1.30 N - XR CHEST 1 [id number] 00:00:00 [facility] 1940 Sex: M FAX: Kathya Hassan [phone] [place]: St: [facility] FAX: Analilia Crowell simeon [phone] Name: MONICA BECK [facility] [place] : 1940 Age/S: 82/M [address] [place] [address] Unit #: [id number] Loc:G.2204 [place] [address] Phys: Analilia Erwin Acct: [id number] Dis Date: Status: ADM IN PHONE #: [phone] Exam Date: 09/28/2022631 FAX #: [phone] Reason: Cardiac Surgery Post Op EXAMS: CPT CODE: [id number] XR CHEST 1 V 66953 PROCEDURE INFORMATION: Exam: XR Chest Exam date and time: 09/28/2022 5:12 AM Age: 82 years old Clinical indication: Other: Cardiac surgery post op TECHNIQUE:Imaging protocol: Radiologic exam of the chest. Views: 1 view. COMPARISON: CR XR CHEST 1V 09/27/2022 5:07 AM FINDINGS: Tubes, catheters and devices: No change in position of the left chest tube or righttrans jugular dialysis catheter is noted. Lungs: Persistent linear subsegmental atelectasis is demonstrated in the right mid lung. The patient has taken a shallow inspiration with crowding of the bronchovascular markings in both lung bases and precludes accurate evaluation of the cardiac silhouette size. Pleural spaces: No pneumothorax is seen. Heart/Mediastinum: Unremarkable. No cardiomegaly. Bones/joints: The patient has had a prior median sternotomy and CABG surgery. IMPRESSION: 1. No significant interval change. Hypoventilatory changes in the lung bases. 2. Satisfactory line and tube placement unchanged. at 0752 Reported and signed by: Aleksandr Delgado M.D. 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 [facility] GLUCOSE [id number] 17:04:00 Test Item Value Reference Range Interpretation Comments GLUCOSE BEDSIDE (test 131 MG/DL 70-110 H Perfor med by certified code = GLUBED) 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 [facility] GLUCOSE [id number] 14:49:00 Test Item Value Reference Range Interpretation Comments GLUCOSE BEDSIDE (test 149 MG/DL 70-110 H Perfor med by certified code = GLUBED) 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 [facility] GLUCOSE [id number] 12:37:00 Test Item Value Reference Range Interpretation Comments GLUCOSE BEDSIDE (test 162 MG/DL 70-110 H Perfor med by certified code = GLUBED) 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 [facility] GLUCOSE [id number] 11:43:00 Test Item Value Reference Range Interpretation Comments GLUCOSE BEDSIDE (test 213 MG/DL 70-110 H Perfor med by certified code = GLUBED) 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 Prophylax is of venous thrombos is 2.0 - 3.0 (orthoped ic surgery), Proph ylaxis of venous throm bosis (other than hig h-risk surgery), Treat ment of Deep Vein Thrombosis/Pulm onary Embolism, Preve ntion of systemic emb olism - Tissue heart va lves, Acute Myocardia l Infarction (to prevent systemic emboli sm), Valvular heart disease, Atrial Fibrillation, Bileaflet mecha nical valve in aortic position.2. Mec hanical prosthetic valv es (high risk), 2. 5 - 3.5 Presence of Lup us Anticoagulant o r Antiphospholipi d Antibodies, Pre vention of systemic emb olism - Acute Myocardia l Infarction (to prevent recurrent infar ct). THROMBOPLASTIN TIME [id number] 06:32:00 Test Item Value Reference Range Interpretation Comments THROMBOPLASTIN TIME 31.3 Seconds 25.0-39.5 N Therape utic Range: PARTIAL (test code = 50.4 - 88.3 Seconds PTT) Effective 09/04/2018 CBC W/AUTO [id number] 06:09:00 Test Item Value Reference Range Interpretation Comments WHITE BLOOD CELL (test code = 9.5 x10 3/uL 4.5-11.0 N WBC) RED BLOOD CELL (test code = 2.97 x10 6/uL 4.00-5.60 L RBC) HEMOGLOBIN (test code = HGB) 9.5 g/dL 12.5-16.9 L HEMATOCRIT (test code = HCT) 27.6 % 37.5-50.7 L MEAN CELL VOLUME (test code = 92.9 fL 81.0-99.0 N MCV) MEAN CELL HGB (test code = MCH) 32.0 pg 27.0-33.0 N MEAN CELL HGB CONCETRATION 34.4 g/dL 33.0-37.0 N (test code = MCHC) RED CELL DISTRIBUTION WIDTH CV 14.0 % 11.5-14.5 N (test code = RDW) RED CELL DISTRIBUTION WIDTH SD 47.2 fL 37.0-54.0 N (test code = RDW-SD) PLATELET COUNT (test code = 109 x10 3/uL 150-400 L PLT) MEAN PLATELET VOLUME (test code 11.4 fL 7.0-9.0 H = MPV) NEUTROPHIL % (test code = NT%) 82.8 % 56.0-77.0 H IMMATURE GRANULOCYTE % (test 0.3 % 0.0-2.0 N code = IG%) LYMPHOCYTE % (test code = LY%) 7.7 % 14.0-32.0 L MONOCYTE % (test code = MO%) 9.0 % 4.8-9.0 N EOSINOPHIL % (test code = EO%) 0.1 % 0.3-3.7 L BASOPHIL % (test code = BA%) 0.1 % 0.0-2.0 N NUCLEATED RBC % (test code = 0.0 % 0-0 N NRBC%) NEUTROPHIL # (test code = NT#) 7.88 x10 3/uL 2.0-7.6 H IMMATURE GRANULOCYTE # (test 0.03 x10 3/uL 0.00-0.03 N code = IG#) LYMPHOCYTE # (test code = LY#) 0.73 x10 3/uL 1.0-3.8 L MONOCYTE # (test code = MO#) 0.86 x10 3/uL 0.1-0.8 H EOSINOPHIL # (test code = EO#) 0.01 x10 3/uL 0.0-0.2 N BASOPHIL # (test code = BA#) 0.01 x10 3/uL 0.0-0.2 N NUCLEATED RBC # (test code = 0.00 x10 3/uL 0.0-0.1 N NRBC#) MANUAL DIFF REQUIRED (test code NO = MDIFF) POC ARTERIAL BLOOD [id number] 05:17:00 Test Item Value Reference Range Interpretation Comments POC ARTERIAL BLOOD GAS PH (test 7.380 7.35-7.45 N code = POCPHA) POC ARTERIAL BLOOD GAS PCO2 38.9 mmHg 35.0-45 N (test code = [id number]) POC TCO2 ARTERIAL (test code = 24.2 POCTCO2) POC ARTERIAL BLOOD GAS PO2 (test 78.3 mmHg 80-100.0 L code = JQAQJ8B) POC HCO3 ARTERIAL (test code = 23.0 MMOL/L 22.0-26.0 N [id number]) POC BASE EXCESS (test code = -2.0 MMOL/L -4.0-4.0 N POCBEA) POC O2 SATURATION (test code = 95.2 % 90-100 N POCO2S) FIO2 (test code = FIO2A) 28 % PaO2/FiO2 (test code = [id number]) 279.64 mm/Hg ABG DELIVERY (test code = LELO) HFNC ABG SITE (test code = SITEA) Art Line BASIC METABOLIC [id number] 05:17:00 Test Item Value Reference Range Interpretation Comments SODIUM (test code = NA/ABG) 138 mmol/L 134-147 N POTASSIUM (test code = K/ABG) 4.4 mmol/L 3.4-5.0 N CHLORIDE (test code = CL/ABG) 105 mmol/L 100-108 N CREATININE ABG (test code = 1.0 mg/dL 0.8-1.3 CREAABG) POC IONIZED CALCIUM (test code = 1.19 MMOL/L 1.12-1.32 N POCCA) POC GLUCOSE (test code = POCGLU) 118 MG/DL 70-110 H HEMOGLOBIN [id number] 05:17:00 Test Item Value Reference Range Interpretation Comments HEMOGLOBIN ABG (test code = HGB/ABG) 8.1 G/DL 12.5-16.9 L [id number] 05:17:00 Test Item Value Reference Range Interpretation Comments HEMATOCRIT (test code = HCT/ABG) 24 % 37.5-50.7 L POC LACTIC [id number] 05:17:00 Test Item Value Reference Range Interpretation Comments POC LACTIC ACID (test code = 0.9 mmol/l 0.9-1.7 N POCLAC) BASIC METABOLIC [id number] 03:43:00 Test Item Value Reference Range Interpretation Comments SODIUM (test code = 139 mEq/L 134-147 N NA) POTASSIUM (test code 4.8 mEq/L 3.4-5.0 = K) CHLORIDE (test code 109 mEq/L 100-108 H = CL) CARBON DIOXIDE (test 24 mEq/l 21-33 N code = CO2) ANION GAP (test code 11 0-20 N = GAP) GLUCOSE (test code = 140 mg/dL 70-110 H GLU) BLOOD UREA NITROGEN 9 mg/dL 7-18 N (test code = BUN) GLOMERULAR 86.3 70-80 H The Glomerular FILTRATION RATE Filtration R ate is a (test code = GFR) calculated parameterbased on serum Creatinine, pat ient age and sex. GFR va luesless than 60 mL/min/ 1.73 square meters a re indicative ofCh ronic Kidney Disease. Values less than 15 mL/min/1.73squa re meters indicate Kidney failure. The calculation forGFR is based on the CKD-EPI (2020) calculat ion. This formulais race indifferent and is the recommended for [place] for GFRby the [facility] Kidney Foundati on for Adults.The GFR will not calculate if th e sex is unknown or if thepatient's ag e is <18 years. CREATININE (test 0.9 mg/dL 0.6-1.3 N code = CREAT) CALCIUM (test code = 8.1 mg/dL 8.0-10.5 N CA) COMMENTS: POD #1HEPATIC FUNCTION [id number] 03:43:00 Test Item Value Reference Range Interpretation Comments TOTAL PROTEIN (test code = PROT) 5.1 g/dL 6.4-8.2 L ALBUMIN (test code = ALB) 3.60 g/dL 3.4-5.0 N BILIRUBIN TOTAL (test code = BILT) 0.60 mg/dL 0.0-1.0 N BILIRUBIN DIRECT (test code = 0.30 MG/DL 0.0-0.30 N BILD) BILIRUBIN INDIRECT (test code = 0.30 MG/DL BILIND) SGOT/AST (test code = AST) 52 IUnit/L 15-37 H SGPT/ALT (test code = ALT) 28 IUnit/L 30-65 L ALKALINE PHOSPHATASE TOTAL (test 29 IUnit/L 20-125 N code = ALKP) COMMENTS: POD #[id number] 03:43:00 Test Item Value Reference Range Interpretation Comments MAGNESIUM (test code = MAG) 2.10 mg/dL 1.80-2.40 COMMENTS: POD #1CALCIUM [id number] 03:15:00 Test Item Value Reference Range Interpretation Comments CALCIUM IONIZED (test code = DONOVAN) 1.09 MMOL/L 1.09-1.30 N CBC W/AUTO [id number] 02:59:00 Test Item Value Reference Range Interpretation Comments WHITE BLOOD CELL (test code = 9.1 x10 3/uL 4.5-11.0 N WBC) RED BLOOD CELL (test code = 2.92 x10 6/uL 4.00-5.60 L RBC) HEMOGLOBIN (test code = HGB) 9.4 g/dL 12.5-16.9 L HEMATOCRIT (test code = HCT) 27.0 % 37.5-50.7 L MEAN CELL VOLUME (test code = 92.5 fL 81.0-99.0 N MCV) MEAN CELL HGB (test code = MCH) 32.2 pg 27.0-33.0 N MEAN CELL HGB CONCETRATION 34.8 g/dL 33.0-37.0 N (test code = MCHC) RED CELL DISTRIBUTION WIDTH CV 13.8 % 11.5-14.5 N (test code = RDW) RED CELL DISTRIBUTION WIDTH SD 47.5 fL 37.0-54.0 N (test code = RDW-SD) PLATELET COUNT (test code = 106 x10 3/uL 150-400 L PLT) MEAN PLATELET VOLUME (test code 11.1 fL 7.0-9.0 H = MPV) NEUTROPHIL % (test code = NT%) 86.6 % 56.0-77.0 H IMMATURE GRANULOCYTE % (test 0.3 % 0.0-2.0 N code = IG%) LYMPHOCYTE % (test code = LY%) 4.4 % 14.0-32.0 L MONOCYTE % (test code = MO%) 8.6 % 4.8-9.0 N EOSINOPHIL % (test code = EO%) 0.0 % 0.3-3.7 L BASOPHIL % (test code = BA%) 0.1 % 0.0-2.0 N NUCLEATED RBC % (test code = 0.0 % 0-0 N NRBC%) NEUTROPHIL # (test code = NT#) 7.83 x10 3/uL 2.0-7.6 H IMMATURE GRANULOCYTE # (test 0.03 x10 3/uL 0.00-0.03 N code = IG#) LYMPHOCYTE # (test code = LY#) 0.40 x10 3/uL 1.0-3.8 L MONOCYTE # (test code = MO#) 0.78 x10 3/uL 0.1-0.8 N EOSINOPHIL # (test code = EO#) 0.00 x10 3/uL 0.0-0.2 N BASOPHIL # (test code = BA#) 0.01 x10 3/uL 0.0-0.2 N NUCLEATED RBC # (test code = 0.00 x10 3/uL 0.0-0.1 N NRBC#) MANUAL DIFF REQUIRED (test code NO = MDIFF) GLUCOSE [id number] 01:38:00 Test Item Value Reference Range Interpretation Comments GLUCOSE BEDSIDE (test 137 MG/DL 70-110 H Perfor med by certified code = GLUBED) 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 : 1940 Age/S: 82/M [address] [place] [address] Unit #: [id number] Loc: G.[address] [place] [id number] Phys: Analilia Erwin Physic Acct: [id number] Dis Date: Status: ADM IN PHONE #: [phone] Exam Date: 09/27/2022 050 FAX #: [phone] Reason: Cardiac Surgery Post Op EXAMS: CPT CODE: [id number] XR CHEST 1 V 05270 PROCEDURE INFORMATION: Exam: XR Chest Exam date and time:09/27/2022 5:07 AM Age: 82 years old Clinical indication: Other: Cardiac surgery post op TECHNIQUE: Imaging protocol: Radiologic exam of the chest. Views: 1 view. COMPARISON: CR XR CHEST 1V 09/26/2022 4:24 PM FINDINGS: Tubes, catheters and devices: Right neck dialysis catheter tip is positioned over the proximal SVC region. Lungs: Lung volumes are decreased. Linear density identified within bilateral lower lungs. Mild bilateral perihilar and basilar interstitial lung opacities, suggesting pulmonary edema versus infiltrates. The peripheral lungs are otherwise clear. No consolidation. Improvement of lung opacities is demonstrated. Pleural spaces: Small volume bilateral pleural effusions. Heart/Mediastinum: Cardiac silhouette appears moderately enlarged. Vasculature: Mild atherosclerotic calcification demonstrated within the aorta. Bones/joints: Sternotomy wires, hardware is demonstrated. IMPRESSION:1. Linear bilateral lower chest pulmonary atelectasis, or scarring. 2. Moderate enlarged cardiac silhouette. 3. Mild interstitial pulmonary edema versus infiltrates. 4. Small bilateral pleural effusions. at 0746 Reported and signed by: Nayan Jacobsen M.D. 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 BLOOD [id number] 20:46:00 Test Item Value Reference Range Interpretation Comments POC ARTERIAL BLOOD GAS PH (test 7.373 7.35-7.45 N code = POCPHA) POC ARTERIAL BLOOD GAS PCO2 35.2 mmHg 35.0-45 N (test code = YOOBGA1M) POC TCO2 ARTERIAL (test code = 21.6 POCTCO2) POC ARTERIAL BLOOD GAS PO2 (test 87.7 mmHg 80-100.0 N code = SHWWZ4O) POC HCO3 ARTERIAL (test code = 20.5 MMOL/L 22.0-26.0 L [id number]) POC BASE EXCESS (test code = -4.3 MMOL/L -4.0-4.0 L POCBEA) POC O2 SATURATION (test code = 96.6 % 90-100 N POCO2S) FIO2 (test code = FIO2A) 36 % PaO2/FiO2 (test code = AYP3PRI7) 243.61 mm/Hg ABG DELIVERY (test code = LELO) HFNC ABG SITE (test code = SITEA) Art Line BASIC METABOLIC [id number] 20:46:00 Test Item Value Reference Range Interpretation Comments SODIUM (test code = NA/ABG) 139 mmol/L 134-147 N POTASSIUM (test code = K/ABG) 4.7 mmol/L 3.4-5.0 N CHLORIDE (test code = CL/ABG) 104 mmol/L 100-108 N CREATININE ABG (test code = 0.8 mg/dL 0.8-1.3 N CREAABG) POC IONIZED CALCIUM (test code = 1.08 MMOL/L 1.12-1.32 L POCCA) POC GLUCOSE (test code = POCGLU) 172 MG/DL 70-110 H HEMOGLOBIN [id number] 20:46:00 Test Item Value Reference Range Interpretation Comments HEMOGLOBIN ABG (test code = HGB/ABG) 8.5 G/DL 12.5-16.9 L [id number] 20:46:00 Test Item Value Reference Range Interpretation Comments HEMATOCRIT (test code = HCT/ABG) 25 % 37.5-50.7 L POC LACTIC [id number] 20:46:00 Test Item Value Reference Range Interpretation Comments POC LACTIC ACID (test code = 1.5 mmol/l 0.9-1.7 N POCLAC) GLUCOSE [id number] 18:40:00 Test Item Value Reference Range Interpretation Comments GLUCOSE BEDSIDE (test 150 MG/DL 70-110 H Perfor med by certified code = GLUBED) 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 [facility] POC ARTERIAL BLOOD [id number] 17:17:00 Test Item Value Reference Range Interpretation Comments POC ARTERIAL BLOOD GAS PH (test 7.334 7.35-7.45 L code = POCPHA) POC ARTERIAL BLOOD GAS PCO2 (test 43.6 mmHg 35.0-45 N code = [id number]) POC TCO2 ARTERIAL (test code = 24.6 POCTCO2) POC ARTERIAL BLOOD GAS PO2 (test 78.1 mmHg 80-100.0 L code = ZAUSL9F) POC HCO3 ARTERIAL (test code = 23.3 MMOL/L 22.0-26.0 N [id number]) POC BASE EXCESS (test code = -2.7 MMOL/L -4.0-4.0 N POCBEA) POC O2 SATURATION (test code = 94.7 % 90-100 N POCO2S) ABG DELIVERY (test code = LELO) HFNC ABG TEMPERATURE (test code = 98 F TEMPA) BASIC METABOLIC [id number] 17:17:00 Test Item Value Reference Range Interpretation Comments SODIUM (test code = NA/ABG) 141 mmol/L 134-147 N POTASSIUM (test code = K/ABG) 3.4 mmol/L 3.4-5.0 N CHLORIDE (test code = CL/ABG) 107 mmol/L 100-108 N CREATININE ABG (test code = 0.9 mg/dL 0.8-1.3 N CREAABG) POC IONIZED CALCIUM (test code = 1.21 MMOL/L 1.12-1.32 N POCCA) POC GLUCOSE (test code = POCGLU) 99 MG/DL 70-110 N HEMOGLOBIN [id number] 17:17:00 Test Item Value Reference Range Interpretation Comments HEMOGLOBIN ABG (test code = HGB/ABG) 8.7 G/DL 12.5-16.9 L [id number] 17:17:00 Test Item Value Reference Range Interpretation Comments HEMATOCRIT (test code = HCT/ABG) 25 % 37.5-50.7 L GLUCOSE [id number] 17:17:00 Test Item Value Reference Range Interpretation Comments GLUCOSE BEDSIDE (test 49 MG/DL 70-110 L Perfor med by certified code = GLUBED) 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 [facility] BASIC METABOLIC [id number] 17:08:00 Test Item Value Reference Range Interpretation Comments SODIUM (test code = 142 mEq/L 134-147 N NA) POTASSIUM (test code 3.3 mEq/L 3.4-5.0 L = K) CHLORIDE (test code 109 mEq/L 100-108 H = CL) CARBON DIOXIDE (test 24 mEq/l 21-33 N code = CO2) ANION GAP (test code 12 0-20 N = GAP) GLUCOSE (test code = 113 mg/dL 70-110 H GLU) BLOOD UREA NITROGEN 9 mg/dL 7-18 (test code = BUN) GLOMERULAR 86.3 70-80 H The Glomerular FILTRATION RATE Filtration R ate is a (test code = GFR) calculated parameterbased on serum Creatinine, pat ient age and sex. GFR va luesless than 60 mL/min/ 1.73 square meters a re indicative ofCh ronic Kidney Disease. Values less than 15 mL/min/1.73squa re meters indicate Kidney failure. The calculation forGFR is based on the CKD-EPI (2020) calculat ion. This formulais race indifferent and is the recommended for [place] for GFRby the Natio nal Kidney Foundati on for Adults.The GFR will not calculate if th e sex is unknown or if thepatient's ag e is <18 years. CREATININE (test 0.9 mg/dL 0.6-1.3 N code = CREAT) CALCIUM (test code = 8.5 mg/dL 8.0-10.5 N CA) COMMENTS: On [id number] 17:08:00 Test Item Value Reference Range Interpretation Comments MAGNESIUM (test code = MAG) 2.80 mg/dL 1.80-2.40 H COMMENTS: On arrivalPROTHROMBIN [id number] 17:01:00 Test Item Value Reference Range Interpretation Comments PROTHROMBIN TIME 18.1 SECONDS 9.3-12.9 H PATIENT (test code = PTP) INTERNATIONAL NORMAL 1.6 0.8-1.2 H TARGE T INR BY RATIO (test code = INDICATIO N Indication INR) INR1. Prophylax is of venous thrombos is 2.0 - 3.0 (orthoped ic surgery), Proph ylaxis of venous throm bosis (other than hig h-risk surgery), Treat ment of Deep Vein Thrombosis/Pulm onary Embolism, Preve ntion of systemic emb olism - Tissue heart va lves, Acute Myocardia l Infarction (to prevent systemic emboli sm), Valvular heart disease, Atrial Fibrillation, Bileaflet mecha nical valve in aortic position.2. Mec hanical prosthetic valv es (high risk), 2. 5 - 3.5 Presence of Lup us Anticoagulant o r Antiphospholipi d Antibodies, Pre vention of systemic emb olism - Acute Myocardia l Infarction (to prevent recurrent infar ct). COMMENTS: On arrivalTHROMBOPLASTIN TIME [id number] 17:01:00 Test Item Value Reference Range Interpretation Comments THROMBOPLASTIN TIME 40.7 Seconds 25.0-39.5 H Therape utic Range: PARTIAL (test code = 50.4 - 88.3 Seconds PTT) Effective 09/04/2018 COMMENTS: On arrivalPOC ARTERIAL BLOOD [id number] 16:58:00 Test Item Value Reference Range Interpretation Comments POC ARTERIAL BLOOD GAS PH (test 7.344 7.35-7.45 L code = POCPHA) POC ARTERIAL BLOOD GAS PCO2 (test 43.6 mmHg 35.0-45 N code = [id number]) POC TCO2 ARTERIAL (test code = 25.0 POCTCO2) POC ARTERIAL BLOOD GAS PO2 (test 100.5 mmHg 80-100.0 H code = LWLQQ5B) POC HCO3 ARTERIAL (test code = 23.7 MMOL/L 22.0-26.0 N [id number]) POC BASE EXCESS (test code = -2.0 MMOL/L -4.0-4.0 N POCBEA) POC O2 SATURATION (test code = 97.4 % 90-100 N POCO2S) ABG DELIVERY (test code = LELO) Cannula ABG SITE (test code = SITEA) Art Line BASIC METABOLIC [id number] 16:58:00 Test Item Value Reference Range Interpretation Comments SODIUM (test code = NA/ABG) 139 mmol/L 134-147 N POTASSIUM (test code = K/ABG) 3.3 mmol/L 3.4-5.0 L CHLORIDE (test code = CL/ABG) 108 mmol/L 100-108 N CREATININE ABG (test code = 0.9 mg/dL 0.8-1.3 N CREAABG) POC IONIZED CALCIUM (test code = 1.14 MMOL/L 1.12-1.32 N POCCA) POC GLUCOSE (test code = POCGLU) 116 MG/DL 70-110 H HEMOGLOBIN [id number] 16:58:00 Test Item Value Reference Range Interpretation Comments HEMOGLOBIN ABG (test code = HGB/ABG) 8.7 G/DL 12.5-16.9 L [id number] 16:58:00 Test Item Value Reference Range Interpretation Comments HEMATOCRIT (test code = HCT/ABG) 26 % 37.5-50.7 L POC LACTIC [id number] 16:58:00 Test Item Value Reference Range Interpretation Comments POC LACTIC ACID (test code = 2.5 mmol/l 0.9-1.7 H POCLAC) CBC W/AUTO [id number] 16:52:00 Test Item Value Reference Range Interpretation Comments WHITE BLOOD CELL (test code = 12.8 x10 3/uL 4.5-11.0 H WBC) RED BLOOD CELL (test code = 3.05 x10 6/uL 4.00-5.60 L RBC) HEMOGLOBIN (test code = HGB) 9.9 g/dL 12.5-16.9 L HEMATOCRIT (test code = HCT) 28.3 % 37.5-50.7 L MEAN CELL VOLUME (test code = 92.8 fL 81.0-99.0 N MCV) MEAN CELL HGB (test code = 32.5 pg 27.0-33.0 N MCH) MEAN CELL HGB CONCETRATION 35.0 g/dL 33.0-37.0 N (test code = MCHC) RED CELL DISTRIBUTION WIDTH CV 13.8 % 11.5-14.5 N (test code = RDW) RED CELL DISTRIBUTION WIDTH SD 47.1 fL 37.0-54.0 N (test code = RDW-SD) PLATELET COUNT (test code = 104 x10 3/uL 150-400 L PLT) MEAN PLATELET VOLUME (test 10.8 fL 7.0-9.0 H code = MPV) NEUTROPHIL % (test code = NT%) 86.9 % 56.0-77.0 H IMMATURE GRANULOCYTE % (test 0.8 % 0.0-2.0 N code = IG%) LYMPHOCYTE % (test code = LY%) 7.5 % 14.0-32.0 L MONOCYTE % (test code = MO%) 4.5 % 4.8-9.0 L EOSINOPHIL % (test code = EO%) 0.2 % 0.3-3.7 L BASOPHIL % (test code = BA%) 0.1 % 0.0-2.0 N NUCLEATED RBC % (test code = 0.0 % 0-0 N NRBC%) NEUTROPHIL # (test code = NT#) 11.11 x10 3/uL 2.0-7.6 H IMMATURE GRANULOCYTE # (test 0.10 x10 3/uL 0.00-0.03 H code = IG#) LYMPHOCYTE # (test code = LY#) 0.96 x10 3/uL 1.0-3.8 L MONOCYTE # (test code = MO#) 0.58 x10 3/uL 0.1-0.8 N EOSINOPHIL # (test code = EO#) 0.02 x10 3/uL 0.0-0.2 N BASOPHIL # (test code = BA#) 0.01 x10 3/uL 0.0-0.2 N NUCLEATED RBC # (test code = 0.00 x10 3/uL 0.0-0.1 N NRBC#) MANUAL DIFF REQUIRED (test NO code = MDIFF) COMMENTS: On [id number] 15:30:00 Test Item Value Reference Range Interpretation Comments ACT-ISTAT (test code 143 SEC 74-137 H Perform ed by certified = ACTI) 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 [facility] POC ARTERIAL BLOOD [id number] 15:30:00 Test Item Value Reference Range Interpretation Comments POC ARTERIAL BLOOD GAS PH (test 7.278 7.35-7.45 LL code = POCPHA) POC ARTERIAL BLOOD GAS PCO2 (test 52.5 mmHg 35.0-45 HH code = CQOHVG7A) POC TCO2 ARTERIAL (test code = 26.2 POCTCO2) POC ARTERIAL BLOOD GAS PO2 (test 92.6 mmHg 80-100.0 N code = YKKQQ6Q) POC HCO3 ARTERIAL (test code = 24.6 MMOL/L 22.0-26.0 N [id number]) POC BASE EXCESS (test code = -2.4 MMOL/L -4.0-4.0 N POCBEA) POC O2 SATURATION (test code = 95.9 % 90-100 N POCO2S) BASIC METABOLIC [id number] 15:30:00 Test Item Value Reference Range Interpretation Comments SODIUM (test code = NA/ABG) 140 mmol/L 134-147 N POTASSIUM (test code = K/ABG) 3.3 mmol/L 3.4-5.0 L CHLORIDE (test code = CL/ABG) 108 mmol/L 100-108 N CREATININE ABG (test code = 0.9 mg/dL 0.8-1.3 N CREAABG) POC IONIZED CALCIUM (test code = 1.31 MMOL/L 1.12-1.32 N POCCA) POC GLUCOSE (test code = POCGLU) 144 MG/DL 70-110 H HEMOGLOBIN [id number] 15:30:00 Test Item Value Reference Range Interpretation Comments HEMOGLOBIN ABG (test code = HGB/ABG) 8.8 G/DL 12.5-16.9 L [id number] 15:30:00 Test Item Value Reference Range Interpretation Comments HEMATOCRIT (test code = HCT/ABG) 26 % 37.5-50.7 L POC LACTIC [id number] 15:30:00 Test Item Value Reference Range Interpretation Comments POC LACTIC ACID (test code = 1.4 mmol/l 0.9-1.7 N POCLAC) [id number] 14:17:00 Test Item Value Reference Range Interpretation Comments ACT-ISTAT (test code 756 SEC 74-137 H Perform ed by certified = ACTI) 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 [facility] POC ARTERIAL BLOOD [id number] 14:02:00 Test Item Value Reference Range Interpretation Comments POC ARTERIAL BLOOD GAS PH (test 7.400 7.35-7.45 N code = POCPHA) POC ARTERIAL BLOOD GAS PCO2 (test 40.0 mmHg 35.0-45 N code = [id number]) POC TCO2 ARTERIAL (test code = 26.0 POCTCO2) POC ARTERIAL BLOOD GAS PO2 (test 394.9 mmHg 80-100.0 HH code = UWNOC7Z) POC HCO3 ARTERIAL (test code = 24.8 MMOL/L 22.0-26.0 N [id number]) POC BASE EXCESS (test code = 0.0 MMOL/L -4.0-4.0 N POCBEA) POC O2 SATURATION (test code = 100.0 % 90-100 N POCO2S) BASIC METABOLIC [id number] 14:02:00 Test Item Value Reference Range Interpretation Comments SODIUM (test code = NA/ABG) 139 mmol/L 134-147 N POTASSIUM (test code = K/ABG) 4.3 mmol/L 3.4-5.0 N CHLORIDE (test code = CL/ABG) 105 mmol/L 100-108 N CREATININE ABG (test code = 0.8 mg/dL 0.8-1.3 N CREAABG) POC IONIZED CALCIUM (test code = 1.04 MMOL/L 1.12-1.32 L POCCA) POC GLUCOSE (test code = POCGLU) 145 MG/DL 70-110 H HEMOGLOBIN [id number] 14:02:00 Test Item Value Reference Range Interpretation Comments HEMOGLOBIN ABG (test code = HGB/ABG) 9.7 G/DL 12.5-16.9 L [id number] 14:02:00 Test Item Value Reference Range Interpretation Comments HEMATOCRIT (test code = HCT/ABG) 29 % 37.5-50.7 L POC LACTIC [id number] 14:02:00 Test Item Value Reference Range Interpretation Comments POC LACTIC ACID (test code = 0.9 mmol/l 0.9-1.7 N POCLAC) [id number] 13:55:00 Test Item Value Reference Range Interpretation Comments ACT-ISTAT (test code 817 SEC 74-137 H Perform ed by certified = ACTI) 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 [facility] POC ARTERIAL BLOOD [id number] 13:40:00 Test Item Value Reference Range Interpretation Comments POC ARTERIAL BLOOD GAS PH (test 7.446 7.35-7.45 N code = POCPHA) POC ARTERIAL BLOOD GAS PCO2 (test 34.0 mmHg 35.0-45 L code = WOSJYO3D) POC TCO2 ARTERIAL (test code = 24.5 POCTCO2) POC ARTERIAL BLOOD GAS PO2 (test 417.0 mmHg 80-100.0 HH code = KRCUG1U) POC HCO3 ARTERIAL (test code = 23.4 MMOL/L 22.0-26.0 N [id number]) POC BASE EXCESS (test code = -0.3 MMOL/L -4.0-4.0 N POCBEA) POC O2 SATURATION (test code = 100.0 % 90-100 N POCO2S) BASIC METABOLIC [id number] 13:40:00 Test Item Value Reference Range Interpretation Comments SODIUM (test code = NA/ABG) 139 mmol/L 134-147 N POTASSIUM (test code = K/ABG) 4.0 mmol/L 3.4-5.0 N CHLORIDE (test code = CL/ABG) 104 mmol/L 100-108 N CREATININE ABG (test code = 0.9 mg/dL 0.8-1.3 N CREAABG) POC IONIZED CALCIUM (test code = 1.00 MMOL/L 1.12-1.32 L POCCA) POC GLUCOSE (test code = POCGLU) 152 MG/DL 70-110 H HEMOGLOBIN [id number] 13:40:00 Test Item Value Reference Range Interpretation Comments HEMOGLOBIN ABG (test code = 10.0 G/DL 12.5-16.9 L HGB/ABG) [id number] 13:40:00 Test Item Value Reference Range Interpretation Comments HEMATOCRIT (test code = HCT/ABG) 30 % 37.5-50.7 L POC LACTIC [id number] 13:40:00 Test Item Value Reference Range Interpretation Comments POC LACTIC ACID (test code = 0.9 mmol/l 0.9-1.7 N POCLAC) [id number] 13:17:00 Test Item Value Reference Range Interpretation Comments ACT-ISTAT (test code 883 SEC 74-137 H Perform ed by certified = ACTI) 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 [facility] POC ARTERIAL BLOOD [id number] 13:03:00 Test Item Value Reference Range Interpretation Comments POC ARTERIAL BLOOD GAS PH (test 7.422 7.35-7.45 N code = POCPHA) POC ARTERIAL BLOOD GAS PCO2 (test 39.8 mmHg 35.0-45 N code = JDBVHG4B) POC TCO2 ARTERIAL (test code = 27.1 POCTCO2) POC ARTERIAL BLOOD GAS PO2 (test 525.6 mmHg 80-100.0 HH code = IMCIB3Y) POC HCO3 ARTERIAL (test code = 25.9 MMOL/L 22.0-26.0 N [id number]) POC BASE EXCESS (test code = 1.4 MMOL/L -4.0-4.0 N POCBEA) POC O2 SATURATION (test code = 100.0 % 90-100 N POCO2S) BASIC METABOLIC [id number] 13:03:00 Test Item Value Reference Range Interpretation Comments SODIUM (test code = NA/ABG) 139 mmol/L 134-147 N POTASSIUM (test code = K/ABG) 5.1 mmol/L 3.4-5.0 H CHLORIDE (test code = CL/ABG) 103 mmol/L 100-108 N CREATININE ABG (test code = 0.9 mg/dL 0.8-1.3 N CREAABG) POC IONIZED CALCIUM (test code = 0.99 MMOL/L 1.12-1.32 L POCCA) POC GLUCOSE (test code = POCGLU) 169 MG/DL 70-110 H HEMOGLOBIN [id number] 13:03:00 Test Item Value Reference Range Interpretation Comments HEMOGLOBIN ABG (test code = HGB/ABG) 9.8 G/DL 12.5-16.9 L [id number] 13:03:00 Test Item Value Reference Range Interpretation Comments HEMATOCRIT (test code = HCT/ABG) 29 % 37.5-50.7 L POC LACTIC [id number] 13:03:00 Test Item Value Reference Range Interpretation Comments POC LACTIC ACID (test code = 0.5 mmol/l 0.9-1.7 L POCLAC) [id number] 12:38:00 Test Item Value Reference Range Interpretation Comments ACT-ISTAT (test code 733 SEC 74-137 H Perform ed by certified = ACTI) 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 [facility] POC ARTERIAL BLOOD [id number] 12:29:00 Test Item Value Reference Range Interpretation Comments POC ARTERIAL BLOOD GAS PH (test 7.185 7.35-7.45 LL code = POCPHA) POC ARTERIAL BLOOD GAS PCO2 (test 67.2 mmHg 35.0-45 HH code = QKHCJM5J) POC TCO2 ARTERIAL (test code = 27.4 POCTCO2) POC ARTERIAL BLOOD GAS PO2 (test 106.2 mmHg 80-100.0 H code = UCDFR4L) POC HCO3 ARTERIAL (test code = 25.4 MMOL/L 22.0-26.0 N QHCRSE6C) POC BASE EXCESS (test code = -4.2 MMOL/L -4.0-4.0 L POCBEA) POC O2 SATURATION (test code = 96.2 % 90-100 N POCO2S) BASIC METABOLIC [id number] 12:29:00 Test Item Value Reference Range Interpretation Comments SODIUM (test code = NA/ABG) 140 mmol/L 134-147 N POTASSIUM (test code = K/ABG) 3.8 mmol/L 3.4-5.0 N CHLORIDE (test code = CL/ABG) 106 mmol/L 100-108 N CREATININE ABG (test code = 0.8 mg/dL 0.8-1.3 N CREAABG) POC IONIZED CALCIUM (test code = 1.15 MMOL/L 1.12-1.32 N POCCA) POC GLUCOSE (test code = POCGLU) 193 MG/DL 70-110 H HEMOGLOBIN [id number] 12:29:00 Test Item Value Reference Range Interpretation Comments HEMOGLOBIN ABG (test code = 13.5 G/DL 12.5-16.9 N HGB/ABG) [id number] 12:29:00 Test Item Value Reference Range Interpretation Comments HEMATOCRIT (test code = HCT/ABG) 40 % 37.5-50.7 N POC LACTIC [id number] 12:29:00 Test Item Value Reference Range Interpretation Comments POC LACTIC ACID (test code = 0.7 mmol/l 0.9-1.7 L POCLAC) [id number] 11:26:00 Test Item Value Reference Range Interpretation Comments ACT-ISTAT (test code 149 SEC 74-137 H Perform ed by certified = ACTI) 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 [facility] POC ARTERIAL BLOOD [id number] 11:13:00 Test Item Value Reference Range Interpretation Comments POC ARTERIAL BLOOD GAS PH (test 7.463 7.35-7.45 H code = POCPHA) POC ARTERIAL BLOOD GAS PCO2 (test 34.1 mmHg 35.0-45 L code = WGHMDL5F) POC TCO2 ARTERIAL (test code = 25.5 POCTCO2) POC ARTERIAL BLOOD GAS PO2 (test 563.7 mmHg 80-100.0 HH code = RCJJL2E) POC HCO3 ARTERIAL (test code = 24.4 MMOL/L 22.0-26.0 N PQTAPY1Y) POC BASE EXCESS (test code = 1.1 MMOL/L -4.0-4.0 N POCBEA) POC O2 SATURATION (test code = 100.0 % 90-100 N POCO2S) BASIC METABOLIC [id number] 11:13:00 Test Item Value Reference Range Interpretation Comments SODIUM (test code = NA/ABG) 141 mmol/L 134-147 N POTASSIUM (test code = K/ABG) 3.6 mmol/L 3.4-5.0 N CHLORIDE (test code = CL/ABG) 106 mmol/L 100-108 N CREATININE ABG (test code = 0.9 mg/dL 0.8-1.3 N CREAABG) POC IONIZED CALCIUM (test code = 1.15 MMOL/L 1.12-1.32 N POCCA) POC GLUCOSE (test code = POCGLU) 115 MG/DL 70-110 H HEMOGLOBIN [id number] 11:13:00 Test Item Value Reference Range Interpretation Comments HEMOGLOBIN ABG (test code = 13.9 G/DL 12.5-16.9 N HGB/ABG) [id number] 11:13:00 Test Item Value Reference Range Interpretation Comments HEMATOCRIT (test code = HCT/ABG) 41 % 37.5-50.7 N POC LACTIC [id number] 11:13:00 Test Item Value Reference Range Interpretation Comments POC LACTIC ACID (test code = 0.4 mmol/l 0.9-1.7 L POCLAC) B-TYPE NATRIURETIC [id number] 09:24:00 Test Item Value Reference Range Interpretation Comments B-TYPE NATRIURETIC PEPTIDE (test 331.0 PG/ML 0-100 H code = BNP) [id number]%2022-09-26 08:57:00 Test Item Value Reference Range Interpretation Comments HGBA1C% (test code = HGBA1C%) 6.8 %A1C 4.8-6.0 H GLUCOSE [id number] 08:46:00 Test Item Value Reference Range Interpretation Comments GLUCOSE BEDSIDE (test 202 MG/DL 70-110 H Perfor med by certified code = GLUBED) 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 [facility] COMPREHENSIVE METABOLIC [id number] 08:14:00 Test Item Value Reference Range Interpretation Comments SODIUM (test code = 139 mEq/L 134-147 N NA) POTASSIUM (test code 3.5 mEq/L 3.4-5.0 N = K) CHLORIDE (test code 105 mEq/L 100-108 N = CL) CARBON DIOXIDE (test 24 mEq/l 21-33 N code = CO2) ANION GAP (test code 14 0-20 N = GAP) GLUCOSE (test code = 106 mg/dL 70-110 N GLU) BLOOD UREA NITROGEN 7 mg/dL 7-18 (test code = BUN) GLOMERULAR 86.3 70-80 H The Glomerular FILTRATION RATE Filtration R ate is a (test code = GFR) calculated parameterbased on serum Creatinine, pat ient age and sex. GFR va luesless than 60 mL/min/ 1.73 square meters a re indicative ofCh ronic Kidney Disease. Values less than 15 mL/min/1.73squa re meters indicate Kidney failure. The calculation for GFR is based on the CK D-EPI (2020) calculat ion. This formulais race indifferent and is the recommended for [place] for GFRby the Nat nal Kidney Foundati on for Adults.The GFR will not calculate if th e sex is unknown or if thepatient's ag e is <18 years. CREATININE (test 0.9 mg/dL 0.6-1.3 N code = CREAT) TOTAL PROTEIN (test 6.2 g/dL 6.4-8.2 L code = PROT) ALBUMIN (test code = 3.70 g/dL 3.4-5.0 N ALB) CALCIUM (test code = 8.9 mg/dL 8.0-10.5 N CA) BILIRUBIN TOTAL 0.80 mg/dL 0.0-1.0 N (test code = BILT) SGOT/AST (test code 26 IUnit/L 15-37 N = AST) SGPT/ALT (test code 25 IUnit/L 30-65 L = ALT) ALKALINE PHOSPHATASE 48 IUnit/L 20-125 N TOTAL (test code = ALKP) LIPID PROFILE (CORONARY RISK)2022-09-26 08:14:00 Test Item Value Reference Range Interpretation Comments TRIGLYCERIDES (test 91 mg/dL 40-150 N code = TRIG) CHOLESTEROL (test 99 mg/dL <200 code = CHOL) CHOLESTEROL/HDL 3.99 RATIO 3.43-4.97 N RISK ASSOCIA TAMRA WITH RATIO (test code = CHOL/HDL RATIOS: RISK CHOLHDL) MALE FEMALE1/2 AVERAGE 3.43 3.27AVERAG E 4.97 4.442X AVERAGE 9.55 7.053X AVERAGE 23.39 11.04 NOTE THAT THE REFERENCE VALUE IS RELATEDTO RISK LEVELS RECOMMENDED BY THE NATL.HEART, ADELA G, AND BLOOD INST. HDL CHOLESTEROL 24.8 mg/dL 32-72 L (test code = HDL) LIPOPROTEIN LDL 61.0 mg/dL 0-100 N <100 OPTIMAL 100-129 (test code = LDL) NEAR OPTIM AL/ABOVE [id number] HIGH>ZB=[id number] CHARLES Y HIGH*Guidelines provided by the [facility] Adult Treatment Panel III CBC W/AUTO [id number] 08:11:00 Test Item Value Reference Range Interpretation Comments WHITE BLOOD CELL (test code = 5.7 x10 3/uL 4.5-11.0 N WBC) RED BLOOD CELL (test code = 4.68 x10 6/uL 4.00-5.60 N RBC) HEMOGLOBIN (test code = HGB) 14.8 g/dL 12.5-16.9 N HEMATOCRIT (test code = HCT) 43.3 % 37.5-50.7 N MEAN CELL VOLUME (test code = 92.5 fL 81.0-99.0 N MCV) MEAN CELL HGB (test code = MCH) 31.6 pg 27.0-33.0 N MEAN CELL HGB CONCETRATION 34.2 g/dL 33.0-37.0 N (test code = MCHC) RED CELL DISTRIBUTION WIDTH CV 13.9 % 11.5-14.5 N (test code = RDW) RED CELL DISTRIBUTION WIDTH SD 46.6 fL 37.0-54.0 N (test code = RDW-SD) PLATELET COUNT (test code = 164 x10 3/uL 150-400 N PLT) MEAN PLATELET VOLUME (test code 12.2 fL 7.0-9.0 H = MPV) NEUTROPHIL % (test code = NT%) 64.4 % 56.0-77.0 N IMMATURE GRANULOCYTE % (test 0.4 % 0.0-2.0 N code = IG%) LYMPHOCYTE % (test code = LY%) 24.9 % 14.0-32.0 N MONOCYTE % (test code = MO%) 6.9 % 4.8-9.0 N EOSINOPHIL % (test code = EO%) 3.0 % 0.3-3.7 N BASOPHIL % (test code = BA%) 0.4 % 0.0-2.0 N NUCLEATED RBC % (test code = 0.0 % 0-0 N NRBC%) NEUTROPHIL # (test code = NT#) 3.65 x10 3/uL 2.0-7.6 N IMMATURE GRANULOCYTE # (test 0.02 x10 3/uL 0.00-0.03 N code = IG#) LYMPHOCYTE # (test code = LY#) 1.41 x10 3/uL 1.0-3.8 N MONOCYTE # (test code = MO#) 0.39 x10 3/uL 0.1-0.8 N EOSINOPHIL # (test code = EO#) 0.17 x10 3/uL 0.0-0.2 N BASOPHIL # (test code = BA#) 0.02 x10 3/uL 0.0-0.2 N NUCLEATED RBC # (test code = 0.00 x10 3/uL 0.0-0.1 N NRBC#) MANUAL DIFF REQUIRED (test code NO = MDIFF) COMMENTS: Daily while on HeparinPROTHROMBIN [id number] 05:54:00 Test Item Value Reference Range Interpretation Comments PROTHROMBIN TIME 13.8 SECONDS 9.3-12.9 H PATIENT (test code = PTP) INTERNATIONAL NORMAL 1.2 0.8-1.2 N TARGET INR BY RATIO (test code = INDICATIO N Indication INR) INR1. Prophylax is of venous thrombos is 2.0 - 3.0 (orthoped ic surgery), Proph ylaxis of venous throm bosis (other than hig h-risk surgery), Treat ment of Deep Vein Thrombosis/Pulm onary Embolism, Preve ntion of systemic emb olism - Tissue heart va lves, Acute Myocardia l Infarction (to prevent systemic emboli sm), Valvular heart disease, Atrial Fibrillation, Bileaflet mecha nical valve in aortic position.2. Mec hanical prosthetic valv es (high risk), 2. 5 - 3.5 Presence of Lup us Anticoagulant o r Antiphospholipi d Antibodies, Pre vention of systemic emb olism - Acute Myocardia l Infarction (to prevent recurrent infar ct). THROMBOPLASTIN TIME [id number] 05:54:00 Test Item Value Reference Range Interpretation Comments THROMBOPLASTIN TIME 48.1 Seconds 25.0-39.5 H Therape utic Range: PARTIAL (test code = 50.4 - 88.3 Seconds PTT) Effective 09/04/2018 - XR CHEST 1 [id number] 00:00:00 [facility] : 1940 Sex: M FAX: Kathya Hassan [phone] [place]: St: ADM FAX: Analilia Crowell [facility] [phone] Name: MONICA BECK DONIGEL [facility] : 1940 Age/S: 82/M [address] [place] [address] Unit #: [id number] Loc: G.2204 [place] [address] Phys: Analilia Erwin Physic Acct: [id number] Dis Date: Status: ADM IN PHONE #: [phone] Exam Date: 09/26/2022 1627 FAX #: [phone] Reason: Cardiac Surgery Post Op EXAMS: CPT CODE: [id number] XR CHEST 1 V 32739 PROCEDURE INFORMATION: Exam: XR Chest Exam date and time: 09/26/2022 4:24 PM Age: 82 years old Clinical indication: Device placement; Other: Cardiac surgery postop TECHNIQUE: Imaging protocol: Radiologic exam of the chest. Views: 1 view. COMPARISON: No relevantprior studies available. FINDINGS: Tubes, catheters and devices: Right neck dialysis catheter tip ispositioned over the proximal SVC region. Mediastinal drainage catheter demonstrated. Lungs: Lung volumes are decreased. Moderate degree bilateral perihilar and basilar interstitial alveolar pulmonary edema versus infiltrates, pneumonia within the lungs. Bilateral pulmonary opacities are most prominent within the lower lungs. Pleural spaces: Small volume bilateral pleural effusions. Heart/Mediastinum: Cardiac silhouette appears moderately enlarged. Bones/joints: Sternotomy wires, hardware is demonstrated. Generalized bony degenerative changes. Soft tissues: This study is limited by patient's body habitus. IMPRESSION: 1. Small bilateral pleural effusions. 2. Moderate pulmonary edema versus infiltrates, pneumonia. 3. Moderate enlarged cardiac silhouette. at 1737 Reported and signed by: Nayan Jacobsen M.D. 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 [facility] THROMBOPLASTIN TIME [id number] 21:09:00 Test Item Value Reference Range Interpretation Comments THROMBOPLASTIN TIME 73.6 Seconds 25.0-39.5 H Therape utic Range: PARTIAL (test code = 50.4 - 88.3 Seconds PTT) Effective 09/04/2018 GLUCOSE [id number] 18:40:00 Test Item Value Reference Range Interpretation Comments GLUCOSE BEDSIDE (test 119 MG/DL 70-110 H Perfor med by certified code = GLUBED) 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 [facility] GLUCOSE [id number] 15:22:00 Test Item Value Reference Range Interpretation Comments GLUCOSE BEDSIDE (test 168 MG/DL 70-110 H Perfor med by certified code = GLUBED) 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 [facility] GLUCOSE [id number] 15:22:00 Test Item Value Reference Range Interpretation Comments GLUCOSE BEDSIDE (test 239 MG/DL 70-110 H Perfor med by certified code = GLUBED) 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 [facility] GLUCOSE [id number] 15:22:00 Test Item Value Reference Range Interpretation Comments GLUCOSE BEDSIDE (test 102 MG/DL 70-110 N Perfor med by certified code = GLUBED) 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 [facility] THROMBOPLASTIN TIME [id number] 13:27:00 Test Item Value Reference Range Interpretation Comments THROMBOPLASTIN TIME 88.4 Seconds 25.0-39.5 H Therape utic Range: PARTIAL (test code = 50.4 - 88.3 Seconds PTT) Effective 09/04/2018 CBC W/AUTO [id number] 08:45:00 Test Item Value Reference Range Interpretation Comments WHITE BLOOD CELL (test code = 5.6 x10 3/uL 4.5-11.0 N WBC) RED BLOOD CELL (test code = 4.40 x10 6/uL 4.00-5.60 N RBC) HEMOGLOBIN (test code = HGB) 13.9 g/dL 12.5-16.9 N HEMATOCRIT (test code = HCT) 41.2 % 37.5-50.7 N MEAN CELL VOLUME (test code = 93.6 fL 81.0-99.0 N MCV) MEAN CELL HGB (test code = MCH) 31.6 pg 27.0-33.0 N MEAN CELL HGB CONCETRATION 33.7 g/dL 33.0-37.0 N (test code = MCHC) RED CELL DISTRIBUTION WIDTH CV 13.8 % 11.5-14.5 N (test code = RDW) RED CELL DISTRIBUTION WIDTH SD 46.7 fL 37.0-54.0 N (test code = RDW-SD) PLATELET COUNT (test code = 156 x10 3/uL 150-400 N PLT) MEAN PLATELET VOLUME (test code 11.8 fL 7.0-9.0 H = MPV) NEUTROPHIL % (test code = NT%) 65.6 % 56.0-77.0 N IMMATURE GRANULOCYTE % (test 0.2 % 0.0-2.0 N code = IG%) LYMPHOCYTE % (test code = LY%) 23.4 % 14.0-32.0 N MONOCYTE % (test code = MO%) 7.9 % 4.8-9.0 N EOSINOPHIL % (test code = EO%) 2.7 % 0.3-3.7 N BASOPHIL % (test code = BA%) 0.2 % 0.0-2.0 N NUCLEATED RBC % (test code = 0.0 % 0-0 N NRBC%) NEUTROPHIL # (test code = NT#) 3.67 x10 3/uL 2.0-7.6 N IMMATURE GRANULOCYTE # (test 0.01 x10 3/uL 0.00-0.03 N code = IG#) LYMPHOCYTE # (test code = LY#) 1.31 x10 3/uL 1.0-3.8 N MONOCYTE # (test code = MO#) 0.44 x10 3/uL 0.1-0.8 N EOSINOPHIL # (test code = EO#) 0.15 x10 3/uL 0.0-0.2 N BASOPHIL # (test code = BA#) 0.01 x10 3/uL 0.0-0.2 N NUCLEATED RBC # (test code = 0.00 x10 3/uL 0.0-0.1 N NRBC#) MANUAL DIFF REQUIRED (test code NO = MDIFF) BASIC METABOLIC [id number] 07:36:00 Test Item Value Reference Range Interpretation Comments SODIUM (test code = 142 mEq/L 134-147 N NA) POTASSIUM (test code 3.6 mEq/L 3.4-5.0 N = K) CHLORIDE (test code 107 mEq/L 100-108 N = CL) CARBON DIOXIDE (test 27 mEq/l 21-33 N code = CO2) ANION GAP (test code 11 0-20 N = GAP) GLUCOSE (test code = 91 mg/dL 70-110 GLU) BLOOD UREA NITROGEN 10 mg/dL 7-18 N (test code = BUN) GLOMERULAR 86.3 70-80 H The Glomerular FILTRATION RATE Filtration R ate is a (test code = GFR) calculated parameterbased on serum Creatinine, pat ient age and sex. GFR va luesless than 60 mL/min/ 1.73 square meters a re indicative ofCh ronic Kidney Disease. Values less than 15 mL/min/1.73squa re meters indicate Kidney failure. The calculation forGFR is based on the CKD-EPI (2020) calculat ion. This formulais race indifferent and is the recommended for philipp for GFRby the [facility] on for Adults.The GFR will not calculate if th e sex is unknown or if thepatient's ag e is <18 years. CREATININE (test 0.9 mg/dL 0.6-1.3 N code = CREAT) CALCIUM (test code = 8.2 mg/dL 8.0-10.5 N CA) URINALYSIS [id number] 07:27:00 Test Item Value Reference Range Interpretation Comments UA COLOR (test code = COLU) YELLOW YEL/STRAW UA APPEARANCE (test code = APPU) CLEAR CLEAR UA GLUCOSE DIPSTICK (test code = 3+ NEGATIVE A DGLUU) UA BILIRUBIN DIPSTICK (test code NEGATIVE NEGATIVE = BILU) UA KETONE DIPSTICK (test code = 1+ NEGATIVE A KETU) UA SPECIFIC GRAVITY (test code = 1.022 1.005-1.030 N SGU) UA BLOOD DIPSTICK (test code = NEGATIVE NEGATIVE MERISSA) UA PH DIPSTICK (test code = ANGIE) 5.0 5.0-7.0 N UA PROTEIN DIPSTICK (test code = NEGATIVE NEGATIVE PROU) UA UROBILINIOGEN DIPSTICK (test 0.2 mg/dL 0.2-1.0 code = URO) UA NITRITE DIPSTICK (test code = NEGATIVE NEGATIVE BLAS) UA LEUKOCYTE ESTERASE DIPSTICK NEGATIVE NEGATIVE (test code = LEUU) UA RBC (test code = RBCU) 0-3 RBC/HPF 0-3 UA WBC NO REFLEX (test code = 0-3 WBC/HPF 0-3 WBCUCL) UA BACTERIA (test code = BACU) TRACE /HPF NONE SEEN UA SQUAMOUS CELLS (test code = 0-5 /HPF NONE SEEN SQU) UA MUCUS (test code = MUCU) TRACE /LPF NONE SEEN THROMBOPLASTIN TIME [id number] 06:50:00 Test Item Value Reference Range Interpretation Comments THROMBOPLASTIN TIME 54.3 Seconds 25.0-39.5 H Therape utic Range: PARTIAL (test code = 50.4 - 88.3 Seconds PTT) Effective 09/04/2018 COVID 19 Asymptomatic IH [id number] 05:43:00 Test Item Value Reference Range Interpretation Comments COVID 19 Asymptomatic Negative Negative A nega tive result is IH AG (test code = presumpti ve and should COVNONPUIAG) be confirmedwit h an FDA authorized mole cular assay, if neces darrian forpatient nils gement.A positive result does not rule out co-inf ections withother patho gens.This test detects janine th viable (live) and non-viable,SARS -CoV, and SARS-CoV-2. Devaughn t performance dep ends on theamount of vi edward (antigen) in th e sample.This devaughn t has not been FDA cleare d or approved; the t est hasbeen authori zed by FDA under an Em ergency Use Authorizati on(EUA) for use by labo ratories certified under the CLIA thatmeet the requirements to perform moderate, high or waivedcomplexit y tests. 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 [facility] GLUCOSE [id number] 21:09:00 Test Item Value Reference Range Interpretation Comments GLUCOSE BEDSIDE (test 172 MG/DL 70-110 H Perfor med by certified code = GLUBED) 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 [facility] THROMBOPLASTIN TIME [id number] 17:27:00 Test Item Value Reference Range Interpretation Comments THROMBOPLASTIN TIME 68.8 Seconds 25.0-39.5 H Therape utic Range: PARTIAL (test code = 50.4 - 88.3 Seconds PTT) Effective 09/04/2018 GLUCOSE [id number] 16:32:00 Test Item Value Reference Range Interpretation Comments GLUCOSE BEDSIDE (test 169 MG/DL 70-110 H Perfor med by certified code = GLUBED) 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 [facility] THROMBOPLASTIN TIME [id number] 11:00:00 Test Item Value Reference Range Interpretation Comments THROMBOPLASTIN TIME 139.2 Seconds 25.0-39.5 H Therap eutic PARTIAL (test code = Range: 50.4 - 88.3 PTT) Seconds Effective 09/04/2018 LIPOPROTEIN [id number] 04:15:00 Test Item Value Reference Range Interpretation Comments LIPOPROTEIN LDL 40.0 mg/dL 0-100 N <100 OPTIMAL 100-129 NEAR (test code = LDL) OPTIMAL/AB OVE [id number] HIGH>PG=641 CHARLES Y HIGH*Guidelines provided by the National Cholesterol EducationProgra m Adult Treatment Panel III [id number]%2022-09-24 03:54:00 Test Item Value Reference Range Interpretation Comments HGBA1C% (test code = HGBA1C%) 6.8 %A1C 4.8-6.0 H BASIC METABOLIC [id number] 03:54:00 Test Item Value Reference Range Interpretation Comments SODIUM (test code = 140 mEq/L 134-147 N NA) POTASSIUM (test code 3.8 mEq/L 3.4-5.0 N = K) CHLORIDE (test code 108 mEq/L 100-108 N = CL) CARBON DIOXIDE (test 24 mEq/l 21-33 N code = CO2) ANION GAP (test code 12 0-20 N = GAP) GLUCOSE (test code = 157 mg/dL 70-110 H GLU) BLOOD UREA NITROGEN 11 mg/dL 7-18 N (test code = BUN) GLOMERULAR 76.1 70-80 N The Glomerular FILTRATION RATE Filtration R ate is a (test code = GFR) calculated parameterbased on serum Creatinine, pat ient age and sex. GFR va luesless than 60 mL/min/ 1.73 square meters a re indicative ofCh ronic Kidney Disease. Values less than 15 mL/min/1.73squa re meters indicate Kidney failure. The calculation forGFR is based on the CKD-EPI (2020) calculat ion. This formulais race indifferent and is the recommended for [place] for GFRby the [facility] on for Adults.The GFR will not calculate if th e sex is unknown or if thepatient's ag e is <18 years. CREATININE (test 1.0 mg/dL 0.6-1.3 N code = CREAT) CALCIUM (test code = 8.2 mg/dL 8.0-10.5 N CA) TROP-I HIGH [id number] 03:54:00 Test Item Value Reference Range Interpretation Comments TROP-I HIGH 102 ng/L 0-54 H CAUTION: Units of the SENSITIVITY (test current te st methodology code = TROPIHS) (ng/L) diffe rfrom the prior test meth odology (ng/mL) by a fa ctor of 1000. 99t h Percentile Uppe r Reference Limit (URL): Fe males: 34 ng/LMales: 54 n g/L In order to distin guish acute elevations of h igh sensitivitytrop onin from other clinical conditions, the FourthUnive rsal Definition of M yocardial Infarction stressesclinica l assessment and the demonstration o f a rise and/orfall in s erial troponin result s above the URL. These resu lts were obtained using Siemens AtellHidInImage IM TnI Hreagent. Results from di fferent methodologies s hould not becompared to o ne another as quantitative results and URLs mayvar y by method. THROMBOPLASTIN TIME [id number] 03:52:00 Test Item Value Reference Range Interpretation Comments THROMBOPLASTIN TIME 84.7 Seconds 25.0-39.5 H Therape utic Range: PARTIAL (test code = 50.4 - 88.3 Seconds PTT) Effective 09/04/2018 CBC W/AUTO [id number] 03:40:00 Test Item Value Reference Range Interpretation Comments WHITE BLOOD CELL (test code = 8.5 x10 3/uL 4.5-11.0 N WBC) RED BLOOD CELL (test code = 4.47 x10 6/uL 4.00-5.60 N RBC) HEMOGLOBIN (test code = HGB) 14.3 g/dL 12.5-16.9 N HEMATOCRIT (test code = HCT) 41.5 % 37.5-50.7 N MEAN CELL VOLUME (test code = 92.8 fL 81.0-99.0 N MCV) MEAN CELL HGB (test code = MCH) 32.0 pg 27.0-33.0 N MEAN CELL HGB CONCETRATION 34.5 g/dL 33.0-37.0 N (test code = MCHC) RED CELL DISTRIBUTION WIDTH CV 13.8 % 11.5-14.5 N (test code = RDW) RED CELL DISTRIBUTION WIDTH SD 47.1 fL 37.0-54.0 N (test code = RDW-SD) PLATELET COUNT (test code = 170 x10 3/uL 150-400 N PLT) MEAN PLATELET VOLUME (test code 11.3 fL 7.0-9.0 H = MPV) NEUTROPHIL % (test code = NT%) 82.4 % 56.0-77.0 H IMMATURE GRANULOCYTE % (test 0.5 % 0.0-2.0 N code = IG%) LYMPHOCYTE % (test code = LY%) 11.2 % 14.0-32.0 L MONOCYTE % (test code = MO%) 5.6 % 4.8-9.0 N EOSINOPHIL % (test code = EO%) 0.2 % 0.3-3.7 L BASOPHIL % (test code = BA%) 0.1 % 0.0-2.0 N NUCLEATED RBC % (test code = 0.0 % 0-0 N NRBC%) NEUTROPHIL # (test code = NT#) 7.03 x10 3/uL 2.0-7.6 N IMMATURE GRANULOCYTE # (test 0.04 x10 3/uL 0.00-0.03 H code = IG#) LYMPHOCYTE # (test code = LY#) 0.96 x10 3/uL 1.0-3.8 L MONOCYTE # (test code = MO#) 0.48 x10 3/uL 0.1-0.8 N EOSINOPHIL # (test code = EO#) 0.02 x10 3/uL 0.0-0.2 N BASOPHIL # (test code = BA#) 0.01 x10 3/uL 0.0-0.2 N NUCLEATED RBC # (test code = 0.00 x10 3/uL 0.0-0.1 N NRBC#) MANUAL DIFF REQUIRED (test code NO = MDIFF) COMMENTS: IF NOT ALREADY DONE WITHIN LAST 24 HOURS- DUP VEIN [id number] 00:00[facility] : 1940 Sex: M Name: MONICA BECK 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 Acct: [id number] Dis Date: Status: ADM IN PHONE #: [phone] Exam Date: 09/24/20221653 FAX #: [phone] Reason: PRE CABG EVAL EXAMS: CPT CODE: [id number] DUP VEIN AILEEN 31843 PROCEDURE INFORMATION: Exam: US Duplex Lower Extremity Veins, Bilateral Exam date and time: 09/24/2022 1:43 PM Age: 82 years old Clinical indication: Condition or disease; Other: Cad; Additional info: Pre cabg eval TECHNIQUE: Imaging protocol: Real-time duplex ultrasound of the bilateral extremities with 2-D chisholm scale, color Doppler flow and spectral waveform analysis including responses to compression and other maneuvers (when performed) with image documentation. Complete exam focused on the lower extremity veins. COMPARISON: No relevant prior studies available. Right great saphenous measurements: Upper thigh: 5.1 mm Mid thigh: 1.8 mm Lower thigh: 2 mm Upper calf: 1.8 mm Mid calf: 1.3 mm Lower calf: 1.1 mm Left great saphenous measurements: Upper thigh: 7.6 mm Mid thigh: 2.1 mm Lower thigh: 2 mm Upper calf: 1.6 mm Mid calf: 2.1 mm Lower calf: 1.9 mm Impression: Vein mapping as described above. at 1841 Reported and signed by: Mikey Salmon M.D. CC: Kathya Maria MD; Alexandra Christie NP Technologist: Rosalie Koenig RDMS(AB) Trnscb Date/Time: 09/24/2022(1840) [id number] Orig Print D/T: S: 09/24/2022 (1840) Probe: PAGE 1 Signed Report- DUP EXTRACRANIAL [id number] 00:00:[facility] : 1940 Sex: M Name: MONICA BECK [facility] : 1940 Age/S: 82 / M [address] [place] [address] Unit #: [id number] Loc: [place] [address] Phys: Alexandra Vicente NP Acct: [id number] Dis Date:Status: ADM IN PHONE #: [phone] Exam Date: 09/24/2022 1654 FAX #: [phone] Reason: pre cabg eval EXAMS: CPT CODE: [id number] DUP EXTRACRANIAL AILEEN [id number] PROCEDURE INFORMATION: Exam: US Duplex Bilateral Extracranial Arteries, Carotid Arteries Exam date and time: 09/24/2022 1:30 PM Age: 82 years old Clinical indication: Condition or disease; Other: Cad; Additional info: Pre cabg eval TECHNIQUE: I maging protocol: Real-time Duplex ultrasound scan of the bilateral carotid and vertebral arteries combining chisholm scale, color Doppler and spectral waveform analysis. Bilateral exam. Exam focused on thecarotid arteries. COMPARISON: No relevant prior studies available. FINDINGS: Any reported internal carotid artery stenoses indirectly reference the distal internal carotid diameter as the denominator for stenosis measurement, utilizing consensus panel criteria. RIGHT: Moderate plaque formation is identified. ICA PSV: 90 cm/s CCA PSV: 72 cm/s ICA/CCA ratio: 1.3 Vertebral flow is antegrade. LEFT: Jspq-rz-jgsajmck plaque formation is identified. ICA PSV: 116 cm/s CCA PSV: 113 cm/s ICA/CCA ratio: 1 Vertebral flow is antegrade. IMPRESSION: 1. RIGHT: Carotid artery stenosis estimated at less than 50% 2. LEFT: Carotid artery stenosis estimated at less than 50% at 1842 Reported and signed by: Mikey Salmon M.D. CC: Kathya Maria MD; Alexandra Christie NP Technologist: Rosalie Koenig RDMS(AB) Trnscb Date/Time: 09/24/2022(1841) [id number] Orig Print D/T: S: 09/24/2022 (1841) Probe: PAGE 1 Signed Report Notes Date/Time Note Provider Source 2022-10-05 13:18:00-00:00 [id number] [place] [address] PATIENT NAME: MONICA BECK ADMIT DATE: 0 09/24/22 ACCOUNT NO: [id number] ROOM NO: [id number] AGE: 82 REPORT TYPE: eECHOCARDIOGRAM REPORT SEX: M ADMITTING PHYSICIAN:Kathya Maria MD ATTENDING PHYSICIAN:Kathya Maria MD *[place] [address] Limited Transthoracic Echocardiogram Patient: Monica Beck Study Date: 10/04/2022 BP: 107 / 55 Location: [facility] URN: [id number] : 1940 Age: 82 Height: 64 in / 162.6 cm Gender: M Weight: 168 .6 lb / 76.7 kg BMI/BSA: 29 kg/m 2 / 1.88 m 2 *Ordering Physician: * Analilia Erwin *Interpreting Physician: * Ana Ramsey MD *Cloth Calender: * Allyssa Siegel Indications: R/O PERICARDIAL EFFUSION. Study data: Transthoracic echocardiogram, limite d study. Procedure: Transthoracic echocardiography was performed. Im ages were obtained using a Yadio cardiac ultrasound machine. Image quality w as fair. Limited 2D and limited spectral Doppler. Location: [facility]side[facility] status: Inpatient. Patient room number: 3362. Study stat us: ANDREI. Findings Left ventricle: The cavity size is normal. Wall thickness is mildly increased. Systolic function is normal. The allan mated ejection fraction is 50-54%. Features are consistent with a pseudo normal left ventricular filling pattern, with concomitant abnormal relax ation and increased filling pressure (grade 2 diastolic dysfunction) . PATIENT NAME: MONICA BECK ACCOUNT #: [id number] Right ventricle: Systolic function is normal. Sy stolic pressure is increased. Ventricular septum: Septal motion is paradoxical . Tricuspid valve: There is mild regurgitation. Pericardium: There is no pericardial effusion. Systemic veins: Inferior vena cava: Not well visualized. Measurements Left ventricle Value 09/29/2022 Ref ANNE, LAX 5.2 cm 4.3 4.2 - 5.8 ESD, LAX 4.1 cm 4.0 2.5 - 4.0 ESD/bsa, 2.2 cm/m 2 2.0 1.3 - 2.1 LAX FS, LAX 21 % 8 25 - 43 ESD/bsa 3.8 cm/m 2 3.5 --------- major ax, A4C ANNE/bsa 3.8 cm/m 2 3.5 --------- minor ax, A4C ANNE major 7.5 cm 8.2 --------- ax, A2C ESD major 7.1 cm --------- ax, A2C ANNE/bsa 4.0 cm/m 2 4.2 --------- major ax, A2C ESD/bsa 3.8 cm/m 2 --------- major ax, A2C PW, ED 1.2 cm 1.3 0.6 - 1.0 IVS/PW, ED 0.99 1.23 --------- EF 43 % 18 52 - 72 E', lat -6.4 cm/sec 9.8 >=10.0 avis, TDI E', med -4.7 cm/sec 5.1 >=7.0 avis, TDI E', avg, 5.5 cm/sec 7.4 --------- TDI E/e', avg, 1 16 <=14 TDI Ventricular septum Value 09/29/2022 Ref IVS, ED 1.2 cm 1.6 0.6 - 1.0 Mitral valve Value 09/29/2022 Ref Peak E 0.06 m/sec 1.15 --------- Peak A 0.65 m/sec 0.79 --------- Decel time 210 ms 191 --------- Peak E/A 0.09 1.45 --------- ratio PATIENT NAME: MONICA BECK ACCOUNT #: [id number] Tricuspid valve Value 09/29/2022 Ref TR peak v 3.05 m/sec 3.5 <=2.8 Peak RV-RA 37 mm Hg 49 --------- grad, S Conclusions Summary: 1. Left ventricle: The cavity size is normal. Wa ll thickness is mildly increased. Systolic function is normal. The est imated ejection fraction is 50-54%. Features are consistent wit h a pseudonormal left ventricular filling pattern, with concomitant a bnormal relaxation and increased filling pressure (grade 2 diastolic d ysfunction). 2. Right ventricle: Systolic pressure is increas ed. 3. Ventricular septum: Septal motion is paradoxi melissa. 4. Pericardium, extracardiac: There is no perica rdial effusion. Prepared and electronically signed by Ana Ramsey MD 10/05/2022 13:18 Electronically Signed by Ana Ramsey MD on 0 10/05/22 at 1318 PATIENT NAME: MONICA BECK ACCOUNT #: [id number] 2022-10-05 10:51:00-00:00 [facility] Hospitalist Progress Note REPORT#:[id number] REPORT STATUS: Signed DATE:10/05/22 TIME: 1051 PATIENT: MONICA BECK UNIT #: [id number] ROOM/BED[address] : [birth year] AGE: 82 SEX: M ATTEND: Nicolasa Maria MD ADM AUTHOR: Charlotte Fitzpatrick MD * ALL edits or amendments must be made on the el [employer]/computer document * Subjective Chief complaint: doing fine, no new issues. Review of Systems All systems rev neg: except as noted Objective General VS/I O: Vital Signs: Date Time Temp Pulse Resp B/P B/P Pulse O2 O2 F low FiO2 Mean Ox Delivery Rate 10/05 0941 98 Room air 21 10/05 0807 97.5 74 15 116/55 0.0 93 Room air 10/05 0600 75 28 116/57 82 97 10/05 0504 97.7 71 14 114/56 0.0 96 Room air 10/05 0459 66 35 114/56 80 95 10/05 0400 65 29 109/53 77 94 10/05 0200 60 25 104/51 73 93 10/05 0001 98.2 66 14 109/53 0.0 97 Room air 10/05 0000 66 25 109/53 78 97 10/04 2050 97 Room air 10/04 203 98.4 76 14 131/60 0.0 97 Room air 10/04 2027 77 131/60 86 98 10/04 1731 98.6 74 20 141/63 0.0 100 Room air 10/04 1148 97.9 73 20 107/55 0.0 98 Room air 24 hour I O ending at 0700: 10/05 0700 10/04 1900 Intake Total 210 600 Output Total 725 750 Balance -515 -150 Intake, Oral 210 600 Number Voids 3 Output, Urine 725 750 Patient 76.3 kg Weight Weight Standing scale Measurement Method PATIENT WEIGHT: Weight (lb): 168 Weight (oz): 3.4 Weight (kg): 76.300 Medications: Active Meds + DC'd Last 24 Hrs Hydrocodone Bitart/Acetaminophen (NORCO 5/325) 1 TAB Q8H PRN PRN PO Acetaminophen (TYLENOL) 650 MG Q4H PRN PRN PO Magnesium Sulfate (MAGNESIUM SULFATE 4GM/SWFI 10 0ML) 100 ML ONCE ONE IV (DC) Sodium Chloride (SODIUM CHLORIDE) 10 ML ASDIR IV Insulin Glargine (Semglee) 15 UNIT BID SUBQ Insulin Human Lispro (HUMALOG) 0 Q6HR SUBQ Ipratropium [place] (ATROVENT) 500 MCG RTQ2H PRN PRN INH Cyanocobalamin (Vitamin B-12 500 mcg tab) 500 MC G DAILY PO Ferrous Sulfate (FERROUS SULFATE) 325 MG DAILY P O Bisacodyl (DULCOLAX) 10 MG ONCE PRN RECTAL Clopidogrel Bisulfate (Plavix) 75 MG DAILY PO Polyethylene Glycol (MIRALAX) 17 GM DAILY PO Pantoprazole (PROTONIX) 40 MG DAILY@0600 PO Aspirin (ASPIRIN) 81 MG DAILY PO Amiodarone HCl (CORDARONE) 200 MG TID PO Docusate Sodium (COLACE) 100 MG BID PO Melatonin (Melatonin) 6 MG BEDTIME PO Metoprolol Tartrate (LOPRESSOR) 12.5 MG Q12HR PO Sennosides (Senna Lax 8.6 MG TABLET) 17.2 MG BED TIME PO Dextrose/Water (DEXTROSE 10% IN WATER) 125 ML DIR PRN IV (CKD) Dextrose/Water (DEXTROSE 10% IN WATER) 250 ML DIR PRN IV (CKD) Glucagon (GLUCAGON) 1 MG ASDIR PRN IM Magnesium Sulfate (MAGNESIUM SULFATE 4GM/SWFI 10 0ML) 100 ML ASDIR PRN IV Magnesium Sulfate (MAGNESIUM SULFATE 2GM/SWFI 50 ML) 50 ML ASDIR PRN IV Magnesium Sulfate/Dextrose (MAGNESIUM SULFATE 1G M/D5W 100ML) 100 ML ASDIR PRN IV Ondansetron HCl (ZOFRAN) 4 MG Q6H PRN PRN IV Dietitian nutrition assessment The data set between the solid lines has been im ported from the dietitian's assessment. BMI Calculated: 28.9 Nutrition related diagnosis: Nutrition diagnosis details: Nutrition problem: Increased nutrient needs Nutrition etiology: Acute illness Nutrition signs and symptoms: HEALING NEEDS S/P SURGERY Nutrition prescription: 1. RECOMMEND CONTINUE CA RDIAC DIET. HONOR FOOD PREFERENCES APPROPRIATE WITH DIET ORDER. 2. PROV VENTURA GLUCERNA TID WITH MEALS. Dietitian name: Keri Willson, RD, LD Assessment completed: 10/04/22 Physical Exam General appearance: alert, awake, oriented Head/Eyes: CHISHOLM HAIR AND ADAMES WEARING EYEGLASSE S Neck: no JVD Cardiovascular: normal heart sounds, regular rat e rhythm Respiratory: aerating well, clear to auscultatio n Abdomen: non-tender, normal bowel sounds, soft Extremities: no edema Musculoskeletal: normal inspection Neuro/RN ELIGIBILITY: no motor deficits Skin: normal color Psychiatry: normal affect, normal judgment/insig ht Results Findings/Data: Laboratory Tests 10/05 10/05 10/05 10/04 10/04 0558 0555 0002 2028 1716 Chemistry Sodium (134 - 147 mEq/L) 140 Potassium (3.4 - 5.0 mEq/L) 4.4 Chloride (100 - 108 mEq/L) 102 Carbon Dioxide (21 - 33 mEq/l) 28 Anion Gap (0 - 20) 15 BUN (7 - 18 mg/dL) 15 Creatinine (0.6 - 1.3 mg/dL) 1.1 Glomerular Filtr Rate (70 - 80) 67.9 L Glucose (70 - 110 mg/dL) 128 H POC Glucose (70 - 110 MG/DL) 123 H 143 H 218 H 223 H Calcium (8.0 - 10.5 mg/dL) 8.9 Magnesium (1.80 - 2.40 mg/dL) 1.85 10/04 1144 Chemistry POC Glucose (70 - 110 MG/DL) 215 H Laboratory Tests 10/05 0555 Hematology WBC (4.5 - 11.0 x10 3/uL) 8.5 RBC (4.00 - 5.60 x10 6/uL) 2.95 L Hgb (12.5 - 16.9 g/dL) 9.2 L Hct (37.5 - 50.7 %) 28.9 L MCV (81.0 - 99.0 fL) 98.0 MCH (27.0 - 33.0 pg) 31.2 MCHC (33.0 - 37.0 g/dL) 31.8 L RDW (11.5 - 14.5 %) 14.9 H Plt Count (150 - 400 x10 3/uL) 348 MPV (7.0 - 9.0 fL) 10.4 H Neut % (Auto) (56.0 - 77.0 %) 76.7 Lymph % (Auto) (14.0 - 32.0 %) 13.0 L Isabella % (Auto) (4.8 - 9.0 %) 6.9 Eos % (Auto) (0.3 - 3.7 %) 2.1 Baso % (Auto) (0.0 - 2.0 %) 0.1 Neut # (Auto) (2.0 - 7.6 x10 3/uL) 6.51 Lymph # (Auto) (1.0 - 3.8 x10 3/uL) 1.10 Isabella # (Auto) (0.1 - 0.8 x10 3/uL) 0.59 Eos # (Auto) (0.0 - 0.2 x10 3/uL) 0.18 Baso # (Auto) (0.0 - 0.2 x10 3/uL) 0.01 Abs Immat Gran (auto) (0.00 - 0.03 x10 3/uL) 0. 10 H Add Manual Diff NO Immature Gran % (0.0 - 2.0 %) 1.2 Nucleated RBC % (0 - 0 %) 0.0 Nucleated RBCs # (Man) (0.0 - 0.1 x10 3/uL) 0.0 0 Radiology data: Recent Impressions: RADIOLOGY - XR CHEST 1 V 10/05 0459 Report Impression - Status: SIGNED Entered: 10/05/2022 0803 IMPRESSION: 1. Left basilar opacity may represent atelectasi s and or pneumonia. 2. Small left pleural effusion. Impression By: LisaPKGus Souza Free Text Obj Notes Free Text Obj Notes: General appearance: alert, awake, oriented Head/Eyes: atraumatic, normocephalic ENT: moist mucosal membranes, normal pharynx Neck: non-tender, supple/no meningismus, no JVD Cardiovascular: normal capillary refill, normal heart sounds, regular rate rhythm Respiratory: aerating well, clear to auscultatio n, symmetric expansion Abdomen: non-tender, normal bowel sounds, soft, no distention Extremities: no clubbing, no cyanosis, no edema Neuro/RN ELIGIBILITY: alert, oriented X 3, CNII-XII intact Skin: dry, intact Psychiatry: normal affect, normal judgment/insig ht Diagnosis, Assessment Plan Problem List/A P: 1. CAD (coronary artery disease) 2. Severe aortic stenosis 3. S/P CABG x 2 4. S/P AVR Consultants: cardiovascular surgery Free Text DxA P Notes Free text DxA P notes: NSTEMI, 3-V CAD, SEVERE , S/P CABGX2, S/P AVR, S/P LEYDI ISOLATION - CARD/CTS SEEN, PLAN PER CTS, ON CT/KING, REPEAT ECHO EF 40-45% Continue aspirin 81 mg daily Atorvastatin 80 mg at bedtime ?pneumoperitoneum? 09/29- as per CXR report. defer to critical care for further evaluation. ANEMIA OF SURGICAL BLOOD LOSS - HGB FROM 14 TO 7 .2, TX PRN Pulmonary edema due to aortic stenosis - COMPENS ATED, ECHO EF 45-50%, DD Chest x-ray with bibasilar opacities. Repeat cx r this am shows left basilar atelectasis, improved image. BNP elevated at 3114 Hypertension - STABLE Resume home lisinopril 10 mg p.o. daily Hydralazine 10 mg IV every 6 hours as n eeded. Blood pressure greater than 170 Type 2 diabetes mellitus - GOOD, CONT ISS, HGBA1 C 6.8%, LDL 40 Hold home metformin, empagliflozin, and semaglu tide Low-dose sliding scale insulin before meals and at bedtime Hyperlipidemia LDL 40, CONT Atorvastatin 80 mg a t bedtime DVT prophylaxis: Heparin drip, cardiology protoc ol Diet: Carbohydrate consistent CODE STATUS: DO NOT RESUSCITATE Patient reports he has an advanced directive His medical power of banking attorney is son Guille Francois t 09/29- POD #3 AVR and CABG x2 . ?pneumoperitoneuam on CXR. awaiting critical care recs. 10/01- POD 5, central line DC'd, ivf's stopped, kidney function stable, king cath remains x1 more day 10/02: Plan to transfer to CVN 1 10/03- Continue plan per cards, and CTS. Transfer to CVN1 10/04 pending placement 10/05- pt refused placement, and deemed eligible for outpatient rehab given ambulating 600ft, has familial support per . pending CTS clearance at 1054 RPT #:[id number] END OF REPORT 2022-10-05 09:29:00-00:00 [facility] ([facility]) Cardiology Progress Note REPORT#:[id number] REPORT STATUS: Signed DATE:10/05/22 TIME: 928 PATIENT: MONICA BECK UNIT #: [id number] ROOM[address]BED: [address] : 42 AGE: 82 SEX: M ATTEND: Nicolasa Maria MD ADM AUTHOR: Geneva Silverman [employer] * ALL edits or amendments must be made on the [employer]/computer document * Objective General VS/I O: 24 hour I O ending at 0700: 10/05 0700 10/04 1900 Intake Total 210 600 Output Total 725 750 Balance -515 -150 Intake, Oral 210 600 Number Voids 3 Output, Urine 725 750 Patient 76.3 kg Weight Weight Standing scale Measurement Method Vital Signs: Date Time Temp Pulse Resp B/P B/P Pulse O2 O2 F low FiO2 Mean Ox Delivery Rate 10/05 0807 36.4 74 15 116/55 0.0 93 Room air 10/05 0600 75 28 116/57 82 97 10/05 0504 36.5 71 14 114/56 0.0 96 Room air 10/05 0459 66 35 114/56 80 95 10/05 0400 65 29 109/53 77 94 10/05 0200 60 25 104/51 73 93 10/05 0001 36.8 66 14 109/53 0.0 97 Room air 10/05 0000 66 25 109/53 78 97 10/04 2049 97 Room air 10/04 2030 36.9 76 14 131/60 0.0 97 Room air 10/047 77 131/60 86 98 10/04 1731 37.0 74 20 141/63 0.0 100 Room air 10/04 1148 36.6 73 20 107/55 0.0 98 Room air 10/04 0958 98 Room air 21 PATIENT WEIGHT: Weight (lb): 168 Weight (oz): 3.4 Weight (kg): 76.300 Medications: Active Meds + DC'd Last 24 Hrs Hydrocodone Bitart/Acetaminophen (NORCO 5/325) 1 TAB Q8H PRN PRN PO Acetaminophen (TYLENOL) 650 MG Q4H PRN PRN PO Magnesium Sulfate (MAGNESIUM SULFATE 4GM/SWFI 10 0ML) 100 ML ONCE ONE IV (DC) Sodium Chloride (SODIUM CHLORIDE) 10 ML ASDIR IV Insulin Glargine (Semglee) 15 UNIT BID SUBQ Insulin Human Lispro (HUMALOG) 0 Q6HR SUBQ Ipratropium [place] (ATROVENT) 500 MCG RTQ2H PRN PRN INH Cyanocobalamin (Vitamin B-12 500 mcg tab) 500 MC G DAILY PO Ferrous Sulfate (FERROUS SULFATE) 325 MG DAILY P O Bisacodyl (DULCOLAX) 10 MG ONCE PRN RECTAL Clopidogrel Bisulfate (Plavix) 75 MG DAILY PO Polyethylene Glycol (MIRALAX) 17 GM DAILY PO Pantoprazole (PROTONIX) 40 MG DAILY@0600 PO Aspirin (ASPIRIN) 81 MG DAILY PO Amiodarone HCl (CORDARONE) 200 MG TID PO Docusate Sodium (COLACE) 100 MG BID PO Melatonin (Melatonin) 6 MG BEDTIME PO Metoprolol Tartrate (LOPRESSOR) 12.5 MG Q12HR PO Sennosides (Senna Lax 8.6 MG TABLET) 17.2 MG BED TIME PO Dextrose/Water (DEXTROSE 10% IN WATER) 125 ML DIR PRN IV (CKD) Dextrose/Water (DEXTROSE 10% IN WATER) 250 ML DIR PRN IV (CKD) Glucagon (GLUCAGON) 1 MG ASDIR PRN IM Magnesium Sulfate (MAGNESIUM SULFATE 4GM/SWFI 10 0ML) 100 ML ASDIR PRN IV Magnesium Sulfate (MAGNESIUM SULFATE 2GM/SWFI 50 ML) 50 ML ASDIR PRN IV Magnesium Sulfate/Dextrose (MAGNESIUM SULFATE 1G M/D5W 100ML) 100 ML ASDIR PRN IV Ondansetron HCl (ZOFRAN) 4 MG Q6H PRN PRN IV Physical Exam Head/Eyes: atraumatic, clear cornea ENT: normal nose Neck: non-tender, no JVD Cardiovascular: CV assessment: regular rate and rhythm Respiratory: decreased breath sounds, no distres s Abdomen: soft, non-tender, normal bowel sounds, no distention Genitourinary: no flank pain, no urinary cathete r Upper extremity: UE assessment: normal temperature Lower extremity: LE assessment: edema (trace) Musculoskeletal: normal inspection Neuro/RN ELIGIBILITY: alert, oriented X 3, normal speech Skin: dry Psychiatry: normal affect, normal mood Results Findings/Data: Laboratory Tests 10/05 10/05 10/05 10/04 10/04 0558 0555 0002 2028 1716 Chemistry Sodium (134 - 147 mEq/L) 140 Potassium (3.4 - 5.0 mEq/L) 4.4 Chloride (100 - 108 mEq/L) 102 Carbon Dioxide (21 - 33 mEq/l) 28 Anion Gap (0 - 20) 15 BUN (7 - 18 mg/dL) 15 Creatinine (0.6 - 1.3 mg/dL) 1.1 Glomerular Filtr Rate (70 - 80) 67.9 L Glucose (70 - 110 mg/dL) 128 H POC Glucose (70 - 110 MG/DL) 123 H 143 H 218 H 223 H Calcium (8.0 - 10.5 mg/dL) 8.9 Magnesium (1.80 - 2.40 mg/dL) 1.85 10/04 1144 Chemistry POC Glucose (70 - 110 MG/DL) 215 H Laboratory Tests 10/05 0555 Hematology WBC (4.5 - 11.0 x10 3/uL) 8.5 RBC (4.00 - 5.60 x10 6/uL) 2.95 L Hgb (12.5 - 16.9 g/dL) 9.2 L Hct (37.5 - 50.7 %) 28.9 L MCV (81.0 - 99.0 fL) 98.0 MCH (27.0 - 33.0 pg) 31.2 MCHC (33.0 - 37.0 g/dL) 31.8 L RDW (11.5 - 14.5 %) 14.9 H Plt Count (150 - 400 x10 3/uL) 348 MPV (7.0 - 9.0 fL) 10.4 H Neut % (Auto) (56.0 - 77.0 %) 76.7 Lymph % (Auto) (14.0 - 32.0 %) 13.0 L Isabella % (Auto) (4.8 - 9.0 %) 6.9 Eos % (Auto) (0.3 - 3.7 %) 2.1 Baso % (Auto) (0.0 - 2.0 %) 0.1 Neut # (Auto) (2.0 - 7.6 x10 3/uL) 6.51 Lymph # (Auto) (1.0 - 3.8 x10 3/uL) 1.10 Isabella # (Auto) (0.1 - 0.8 x10 3/uL) 0.59 Eos # (Auto) (0.0 - 0.2 x10 3/uL) 0.18 Baso # (Auto) (0.0 - 0.2 x10 3/uL) 0.01 Abs Immat Gran (auto) (0.00 - 0.03 x10 3/uL) 0 .10 H Add Manual Diff NO Immature Gran % (0.0 - 2.0 %) 1.2 Nucleated RBC % (0 - 0 %) 0.0 Nucleated RBCs # (Man) (0.0 - 0.1 x10 3/uL) 0.0 0 Laboratory Tests 10/05 0555 Chemistry Magnesium (1.80 - 2.40 mg/dL) 1.85 Radiology data: Recent Impressions: RADIOLOGY - XR CHEST 1 V 10/05 0559 Report Impression - Status: SIGNED Entered: 10/05/2022 0803 IMPRESSION: 1. Left basilar opacity may represent atelectasi s and or pneumonia. 2. Small left pleural effusion. Impression By: LisaPKGalindo - Gus Greene Echo results: Summary: 1. Left ventricle: The cavity size is normal. Wa ll thickness is mildly increased. Systolic function is normal. The est imated ejection fraction is 50-54%. Features are consistent wit h a pseudonormal left ventricular filling pattern, with concomitant a bnormal relaxation and increased filling pressure (grade 2 diastolic d ysfunction). 2. Right ventricle: Systolic pressure is increas ed. 3. Ventricular septum: Septal motion is paradoxi melissa. 4. Pericardium, extracardiac: There is no perica rdial effusion. Diagnosis, Assessment Plan Plan discussed with: patient, collaborating MD, consultants, nurse Free Text DxA P Notes Free Text DxA P Notes: 82 YO male with MHx of DM, HLD, . He presented to [facility] with CP, found to have NSTEMI. LHC ensued that showed sev ere multivessel CAD. He is transferred to us and underwent CABG and AVR on 09/26/22. 1. Multivessel CAD S/p CABG x2 (NAIR to LAD and SVG to OM), ALAA, a nd SAVR on DAPT, BB, statin hemodynamics stable post-op care per CTS negative fluid balance Echo LVEF 50-54%, grade 2 DD, no pericardial eff usion 2. s/p SAVR continue DAPT 3. Hypertension BP stable continue BB 4. Diabetes mellitus per critical care 5. ELevated LFT. AST/ALT trending down. 6. Report of post-op afib - now in sinus on PO amio and BB Stable, on room air. Discharge when cleared by CTS Outpatient follow-up with Dr. Kent. at 1407 Electronically Signed by Jakob Pa MD on at 2020 RPT #:[id number] END OF REPORT 2022-10-05 08:57:00-00:00 [facility] REPORT#:[id number] REPORT STATUS: Signed DATE:10/05/22 TIME: 856 PATIENT: MONICA BECK UNIT #: [id number] ROOM/BED: [place] [address] : 42 AGE: 82 SEX: M ATTEND: Nicolasa Maria MD ADM AUTHOR: Analilia Erwin Physic * ALL edits or amendments must be made on the [employer]/computer document * General Post-op: day 9 Status post: 09/27/22 ROCEDURES: 1. Aortic valve replacement (25 Inspiris valve) . 2. Coronary artery bypass graft surgery x2 (CASTRO A to LAD, saphenous vein to marginal). 3. Amputation of left atrial appendage. 4. Endoscopic vein harvest (right greater saphe nous vein). 5. Posterior pericardiotomy. Subjective Chief complaint: POst op AVR Review of Systems Constitutional: Denies: chills, fever, malaise. Allergy/Immun: Denies: allergic reaction. Respiratory: Denies: SOB. Cardiovascular: Denies: chest pain, palpitations. : Denies: dysuria, hematuria. Heme: Denies: bleeding. Neuro: Denies: dizziness, headache, vision change. All systems rev neg: except as marked Objective General VS/I O Last Documented: Result Date Time Pulse Ox 93 10/05 08 B/P 116/55 10/05 0807 B/P Mean 0.0 10/05 0807 O2 Delivery Room air 10/05 08 Temp 97.5 10/05 0807 Pulse 74 10/05 0807 Resp 15 10/05 0807 FiO2 21 10/04 0958 O2 Flow Rate 1 10/03 0421 24 hour I O ending at 0700: 10/05 0700 10/04 1900 Intake Total 210 600 Output Total 725 750 Balance -515 -150 Intake, Oral 210 600 Number Voids 3 Output, Urine 725 750 Patient 76.3 kg Weight Weight Standing scale Measurement Method PATIENT WEIGHT: Weight (lb): 168 Weight (oz): 3.4 Weight (kg): 76.300 Physical Exam General appearance: alert, awake, oriented Wound/incision: Location: Sternum dry, No oozing Site condition: edges approximated, incision in tact, no drainage HEENT: anicteric, mucosal membranes moist Neck: non-tender, supple/no meningismus Cardiovascular: normal heart sounds Murmur: Systolic 3/6 Respiratory: aerating well, symmetric expansion, no distress Abdomen: soft, non-tender, no distention Extremities: moves all Neuro/RN ELIGIBILITY: alert, oriented X 3, normal speech, n o motor deficits Psychiatry: normal affect, normal mood Diagnosis, Assessment Plan Hospital course to date: Mr Beck a very pleasant 82-year-old male with past medical history of diabetes, hyperlipidemia, restless leg syndrome aortic valve stenosis who presented [facility] complaining of substernal chest pain across the anterior chest positive for n ausea and diaphoresis. CT chest showed small to moderate bilateral pleural effusions, ascending aorta measuring 4.2 cm. Cardiac enzymes elevated pat ient deemed non-STEMI. He was taken to the [facility] coronary angiogram revealed severe multivessel coronary artery disease. Patient started on heparin drip and transferred to [facility] for possible CABG and AVR. PLAN Coronary angiogram images will be uploaded in [employer] system Dr Maria explained to the patient his family t he angiogram findings and echocardiogram findings and recommended coronary artery bypass graft and aortic valve replacement. The surgery, risks involved, STS score, benefits, complications and alternatives were expl ained to the patient including risk of stroke, respiratory failure, need for tracheosto my, renal failure requiring dialysis, bleeding, infection. Patient acknowled ged understanding and is willing to proceed Initiate preop work-up for AVR Carotid ultrasound BLE venous doppler for vein mapping and marking UA to rule out UTI We will tentatively schedule patient for AVR on 09/26 Preop assessment ongoing Denies chest pain, no shortness of breath Remains on heparin drip Carotid ultrasound showed less than 50% stenosis bilaterally Noncontrasted CT chest performed at [facility] reviewed with Dr. Maria. Images will be uploaded in our system. Coronary angiogram images uploaded in [employer] o Plan for CABG and AVR tomorr ow morning. The surgery, risks involved, STS score, benefits, complications and alternatives were ex plained to the patient. He acknowledged understanding and is willing to pro ceed. Patient changed code status to FULL CODE as he i s going for surgery N.p.o. after midnight 09/27/22 POD 1 AAOx3 Respiratory: 3 l NC, wwean as tolerated. Encourage IS, Deep Breathing, CXR reviewed Cardiac: remains sinus rhtyhm. Pacing wires on s tandb GI: Continue Bowel regimen, no bm yet UO: 1200 Continue PT/OT Disposition: DVT prophylaxis Labs reveiwed- replace electrolytes as needed Patient seen and examined by Dr. Maria. Plan o f care discussed with multidisciplinary team 09/28/22 POD 2 AAOx3 Respiratory: On 2 L NC, 100%, wean as tolerated. Encourage IS, Deep Breathing, CXR reviewed, chest tube in place continue to d rain 300 cc Cardiac: Atrial fibrillation today. Amio bolus g iven, hypotension when moving to the chair. HGB trending down, Will repeat this Am. GI: Passing gas, continue Bowel regimen : King in place, UO: 425 Continue PT/OT Disposition: Pending course DVT prophylaxis Labs reveiwed- replace electrolytes as needed Patient seen and examined by Dr. Maria. Plan o f care discussed with multidisciplinary team 09/29/22 POD 3 AAOx3 Respiratory: On room air, 99% Encourage IS, Deep Breathing, CXR reviewed, CT in place, Still outputs high- continue to monitor. Cardiac: Sinus rhtyhm. Pacer on standby. HGB trending down, Will monitor and repeat. GI: Passing gas, continue Bowel regimen, elevati on liver enzymes likely from amiodarone, will hold Amio for now. : King in place, UO: Urine output low, will consult renal. Victoria de la vega was started on dopamine yesterday subsequently went into A-fib RVR. Amio bolus was given Continue PT/OT Disposition: Pending course DVT prophylaxis Labs reveiwed- replace electrolytes as needed Patient seen and examined by Dr. Maria. Plan o f care discussed with multidisciplinary team 09/30/22 POD 5 AAOx3 Respiratory: On room air, 99% Encourage IS, Deep Breathing, CXR reviewed, Chest tubes out Cardiac: Sinus rhtyhm. Pacer on standby. HGB trending down, Will monitor and repeat. GI: Passing gas, continue Bowel regimen, elevati on liver enzymes likely from amiodarone, will hold Amio for now. : King in place, need 1 more day for urine ou tput. UO: Improving IV fluids stopped, renal f ollowing creatinine improving 1.3 from 1.5 today. Continue PT/OT Disposition: Pending course DVT prophylaxis Labs reveiwed- replace electrolytes as needed Patient seen and examined by Dr. Maria. Plan o f care discussed with multidisciplinary team DC central line 10/01/22 POD 6 AAOx3 Respiratory: On room air, 99% Encourage IS, Deep Breathing, CXR reviewed, Chest tubes out Cardiac: Sinus rhtyhm. Pacer on standby. HGB trending down, Will monitor and repeat. GI: Small BM yest- continue bowel regimen, Liver enzymes trending down. On p.o. Amio : DC king today, Renal function improing 1.3- ->1.1 UO:1800- off IV fluids Continue PT/OT Disposition: Pending course- patient wants to go home with DVT prophylaxis Labs reveiwed- replace electrolytes as needed Patient seen and examined by Dr. Maria. Plan o f care discussed with multidisciplinary team Okay to CVN 1 today 10/02/22 POD 6 AAOx3 Respiratory: On room air, 99% Encourage IS, Deep Breathing, CXR reviewed, Chest tubes out Cardiac: Patient went into atrial fibrillation t his a.m. Converted with amnio bolus and drip.. Pacer on standby. Hemoglobin stable 8.6 GI: Small BM yest- continue bowel regimen, Liver enzymes trending down. On p.o. Amio : DC king today, Renal function improing 1.3- ->1.1 UO:1725- off IV fluids Continue PT/OT Disposition: SNF-patient unable to care for him at home, Case management consulted. DVT prophylaxis Labs reveiwed- replace electrolytes as needed Patient seen and examined by Dr. Maria. Plan o f care discussed with multidisciplinary team Okay to CVN 1 today 10/03 Patient in stable condition CXR and labs reviewed, electrolytes replaced On room air, encourage I-S use Converted to NSR, on amiodarone, monitor LFTs Tolerating diet, nutritional supplements, +BM DVT ppx- SCDs Consult rehab Transfer to CV intermediate care unit 10/04/22 Patient resting comfortable, denies complaints Chest x-rays reviewed. Replace magnesium Respiratory: On room air Cardiac: Sinus rhythm, pacing wires in place on standby GI:+BM Patient has been out of bed with PT U0: 2000 Patient was seen and examined Dr. Maria. Discharge planning in progress, will discuss wit h case management 10/05/22 Patient resting comfortable, denies complaints. Pacing wires removed yesterday. Echo pending to rule out effusion DVT studies ordered Respiratory: On room air Cardiac: Sinus rhythm GI:+BM Patient walked greater than 500 feet yesterday u nassisted. Patient does not want to consider, SNF or home health Patient reports his will be home fo r support. We will consider outpatient therapy. Consider home today once DVT and echo completed Consultants: cardiovascular surgery at 1535 RPT #:[id number] END OF REPORT 2022-10-04 15:01:00-00:00 [facility] ([facility]) Hospitalist Discharge Summary REPORT#:[id number] REPORT STATUS: Signed DATE:10/04/22 TIME: 150 PATIENT: MONICA BECK UNIT #: [id number] ROOM/BED: [place] [address] : 42 AGE: 82 SEX: M ATTEND: Nicolasa Maria MD ADM AUTHOR: Charlotte Fitzpatrick MD * ALL edits or amendments must be made on the [employer]/computer document * General Information Problem List/A P: 1. CAD (coronary artery disease) 2. Severe aortic stenosis 3. S/P CABG x 2 4. S/P AVR Date of admission: Observation Start Date: Date of admission: 09/24/22 Discharge date: 10/08/22 Admission diagnosis: Coronary artery disease, requiring CABG Discharge diagnosis: S/p CABG Hospital course: 82-year-old male with past m edical history of hypertension, hyperlipidemia, type 2 diabetes mellitus, restless leg syndro me, and aortic stenosis is transferred here from [facility], where he presen tamra today with complaint of chest pain for the past few weeks. Patie nt complained of substernal chest pain associated with diaphoresis. He was found to hav e elevated troponin I and cardiology was consulted. Patient had left heart catheterization, the results of which are not available at this time. He was then transferred to [facility] for evaluation by cardiothoracic surge ry. CTS team evaluated, and performed CABG. Patient recovered well, able to ambulate 600 feet prior to discharge. PT/OT work with patient, recommended patient discharge with outpatient rehab. Consultants: cardiovascular surgery Allergies: Allergies: No Known Allergies (Coded, 09/24/22) Free Text DxA P Notes Free text DxA P notes: NSTEMI, 3-V CAD, SEVERE , S/P CABGX2, S/P AVR, S/P LEYDI ISOLATION - CARD/CTS SEEN, PLAN PER CTS, ON CT/KING, REPEAT ECHO EF 40-45% Continue aspirin 81 mg daily Atorvastatin 80 mg at bedtime ?pneumoperitoneum? 09/29- as per CXR report. defer to critical care for further evaluation. ANEMIA OF SURGICAL BLOOD LOSS - HGB FROM 14 TO 7 .2, TX PRN Pulmonary edema due to aortic stenosis - COMPENS ATED, ECHO EF 45-50%, DD Chest x-ray with bibasilar opacities BNP elevated at 3114 Hypertension - STABLE Resume home lisinopril 10 mg p.o. daily Hydralazine 10 mg IV every 6 hours as n eeded. Blood pressure greater than 170 Type 2 diabetes mellitus - GOOD, CONT ISS, HGBA1 C 6.8%, LDL 40 Hold home metformin, empagliflozin, and semaglu tide Low-dose sliding scale insulin before meals and at bedtime Hyperlipidemia LDL 40, CONT Atorvastatin 80 mg a t bedtime DVT prophylaxis: Heparin drip, cardiology protoc ol Diet: Carbohydrate consistent CODE STATUS: DO NOT RESUSCITATE Patient reports he has an advanced directive His medical power of banking attorney is nadeem de la vega 09/29- POD #3 AVR and CABG x2 . ?pneumoperitoneuam on CXR. awaiting critical care recs. 10/01- POD 5, central line DC'd, ivf's stopped, kidney function stable, king cath remains x1 more day 10/02: Plan to transfer to CVN 1 10/03- Continue plan per cards, and CTS. Transfer to CVN1 10/04 pending placement Med Rec Med Rec Discharge meds: Continue taking these medications: metFORMIN (GLUCOPHAGE) 500 MG TAB 500 MILLIGRAM ORAL TWICE DAILY. Instructions: TAKE WITH MEALS LISINOPRIL (ZESTRIL) 10 MG TAB 10 MILLIGRAM ORAL DAILY. EMPAGLIFLOZIN (JARDIANCE) 25 MG TAB 25 MILLIGRAM ORAL DAILY. ATORVASTATIN (LIPITOR) 80 MG TAB 80 MILLIGRAM ORAL DAILY. ZINC GLUCONATE (ZINC GLUCONATE) 50 MG TAB 50 MILLIGRAM ORAL DAILY. Start taking the following new medications: CLOPIDOGREL (PLAVIX) 75 MG TAB 75 MILLIGRAM ORAL DAILY. Days = 30 Qty = 30 No Refills METOPROLOL TARTRATE (LOPRESSOR) 25 MG TAB 12.5 MILLIGRAM ORAL EVERY 12 HOURS. Days = 30 Qty = 30 No Refills ASPIRIN (ASPIRIN) 81 MG TAB.CHEW 81 MILLIGRAM ORAL DAILY. Days = 30 Qty = 30 No Refills AMIODARONE (PACERONE) 200 MG TAB 200 MILLIGRAM ORAL THREE TIMES A DAY. Days = 7 Qty = 21 No Refills Objective VS/I O Last Documented: Result Date Time Pulse Ox 100 10/05 1240 FiO2 21 10/05 1240 O2 Delivery Room air 10/05 1240 B/P 132/60 10/05 1148 B/P Mean 0.0 10/05 1148 Temp 98.2 10/05 1148 Pulse 68 10/05 1148 Resp 20 10/05 1148 O2 Flow Rate 1 10/03 0421 General appearance: alert, awake, oriented Head/Eyes: CHISHOLM HAIR AND ADAMES WEARING EYEGLASSE S Neck: no JVD Cardiovascular: normal heart sounds, regular rat e rhythm Respiratory: aerating well, clear to auscultatio n Abdomen: non-tender, normal bowel sounds, soft Extremities: no edema Musculoskeletal: normal inspection Neuro/RN ELIGIBILITY: no motor deficits Skin: normal color Psychiatry: normal affect, normal judgment/insig ht Free Text Obj Notes Free Text Obj Notes: General appearance: alert, awake, oriented Head/Eyes: atraumatic, normocephalic ENT: moist mucosal membranes, normal pharynx Neck: non-tender, supple/no meningismus, no JVD Cardiovascular: normal capillary refill, normal heart sounds, regular rate rhythm Respiratory: aerating well, clear to auscultatio n, symmetric expansion Abdomen: non-tender, normal bowel sounds, soft, no distention Extremities: no clubbing, no cyanosis, no edema Neuro/RN ELIGIBILITY: alert, oriented X 3, CNII-XII intact Skin: dry, intact Psychiatry: normal affect, normal judgment/insig ht Discharge Instructions PCP PCP follow-up: PCP: Kathya Maria MD Discharge to: Home/Self Care Additional Discharge Routines: PCP Follow-Up Diet: Cardiac Activity: As Tolerated Prescriptions: on chart Discharge management: greater than 30 mins, face to face encounter Time spent: Time spent on patient care (minutes): 39 >50% spent on counseling/coordination of care: yes Follow-up Appointments PCP follow-up: PCP: Kathya Maria MD PCP follow up timeframe: In 1-2 weeks at [facility] #:[id number] END OF REPORT 2022-10-04 14:36:00-00:00 [facility]ACL [facility] ([facility]) Hospitalist Progress Note REPORT#:[id number] REPORT STATUS: Signed DATE:10/04/22 TIME: 1436 PATIENT: MONICA BECK UNIT #: [id number] ROOM/BED: [place] [id number] : 42 AGE: 82 SEX: M ATTEND: Ab romain Maria MD ADM AUTHOR: Charlotte Fitzpatrick MD * ALL edits or amendments must be made on the [employer] document * Subjective Chief complaint: patient doing well, no acute change. Ambulating with supervision. at bedside Review of Systems All systems rev neg: except as noted Objective General VS/I O: Vital Signs: Date Time Temp Pulse Resp B/P B/P Pulse O2 O2 F low FiO2 Mean Ox Delivery Rate 10/04 1148 97.9 73 20 107/55 0.0 98 Room air / 0958 98 Room air 21 /16 0806 98.1 78 20 141/67 0.0 96 Room air 05/16 0600 74 27 136/63 91 94 05/16 0528 97.9 71 14 122/60 0.0 95 Room air 05/16 0500 73 24 122/60 86 90 05/16 0400 72 25 148/65 94 97 05/16 0300 75 139/70 97 99 05/16 0231 97.9 71 14 132/68 0.0 95 Room air 05/16 0227 75 25 132/68 92 95 05/16 0200 69 27 137/63 91 91 05/16 0153 69 31 93 05/16 0148 71 33 139/65 93 05/16 0100 66 26 132/61 88 95 05/16 0000 67 24 128/60 86 96 05/15 2300 70 22 140/70 99 93 05/15 2200 78 30 148/72 103 96 05/15 2100 76 28 156/71 102 96 05/15 2000 69 18 156/68 98 99 05/15 1900 72 26 145/66 95 99 05/15 1701 74 28 178/75 108 99 05/15 1600 68 26 140/63 91 97 05/15 1531 95 Room air 21 05/15 1500 66 135/64 92 99 24 hour I O ending at 0700: 10/04 0700 10/03 1900 Intake Total Output Total 1999 Balance -1999 Number 1 Bowel Movements Output, Urine 1999 475 Patient 77.1 kg Weight Weight Standing scale Measurement Method PATIENT WEIGHT: Weight (lb): 169 Weight (oz): 15.62 Weight (kg): 77.100 Medications: Active Meds + DC'd Last 24 Hrs Acetaminophen (TYLENOL) 650 MG Q4H PRN PRN PO Magnesium Sulfate (MAGNESIUM SULFATE 2GM/SWFI 50 ML) 50 ML ONCE ONE IV ( CAN) Magnesium Sulfate (MAGNESIUM SULFATE 4GM/SWFI 10 0ML) 100 ML ONCE ONE IV (DC) Sodium Chloride (SODIUM CHLORIDE) 10 ML ASDIR IV Fentanyl Citrate (SUBLIMAZE) 50 MCG Q6H PRN PRN IV (DC) Insulin Glargine (Semglee) 15 UNIT BID SUBQ Insulin Human Lispro (HUMALOG) 0 Q6HR SUBQ Ipratropium [place] (ATROVENT) 500 MCG RTQ2H PRN PRN INH Cyanocobalamin (Vitamin B-12 500 mcg tab) 500 MC G DAILY PO Ferrous Sulfate (FERROUS SULFATE) 325 MG DAILY P O Bisacodyl (DULCOLAX) 10 MG ONCE PRN RECTAL Amiodarone HCl (AMIODARONE HCL) 450 MG ASDIR IV (DC) Dextrose/Water (D5%W NON-DEHP) 250 ML Dopamine HCl/Dextrose (DOPamine 400MG/D5W 250ML) 250 ML ASDIR IV (DC) Clopidogrel Bisulfate (Plavix) 75 MG DAILY PO Polyethylene Glycol (MIRALAX) 17 GM DAILY PO Pantoprazole (PROTONIX) 40 MG DAILY@0600 PO Aspirin (ASPIRIN) 81 MG DAILY PO Amiodarone HCl (CORDARONE) 200 MG TID PO Docusate Sodium (COLACE) 100 MG BID PO Melatonin (Melatonin) 6 MG BEDTIME PO Metoprolol Tartrate (LOPRESSOR) 12.5 MG Q12HR PO Sennosides (Senna Lax 8.6 MG TABLET) 17.2 MG BED TIME PO Calcium Chloride (CALCIUM CHLORIDE) 1 GM ASDIR P RN IV (DC) Dextrose/Water (DEXTROSE 10% IN WATER) 125 ML DIR PRN IV (CKD) Dextrose/Water (DEXTROSE 10% IN WATER) 250 ML DIR PRN IV (CKD) Epinephrine (ADRENALIN CHLORIDE) 4 MG ASDIR IV ( DC) Dextrose/Water (DEXTROSE 5% WATER) 246 ML Glucagon (GLUCAGON) 1 MG ASDIR PRN IM Magnesium Sulfate (MAGNESIUM SULFATE 4GM/SWFI 10 0ML) 100 ML ASDIR PRN IV Magnesium Sulfate (MAGNESIUM SULFATE 2GM/SWFI 50 ML) 50 ML ASDIR PRN IV Magnesium Sulfate/Dextrose (MAGNESIUM SULFATE 1G M/D5W 100ML) 100 ML ASDIR PRN IV Nitroglycerin/Dextrose (NITROGLYCERIN 50,000MCG/ D5W 250ML) 250 ML ASDIR IV (DC) Norepinephrine Bitartrate (NOREPINEPHRINE 8 MG/N S 250 ML) 250 ML TITRATE IV (DC) Ondansetron HCl (ZOFRAN) 4 MG Q6H PRN PRN IV Potassium Chloride (KCL 20MEQ/SWFI 100ML) 100 ML ASDIR PRN IV (DC) Sodium Bicarbonate (SODIUM BICARBONATE) 50 MEQ A SDIR PRN IV (DC) Dietitian nutrition assessment The data set between the solid lines has been im ported from the dietitian's assessment. BMI Calculated: 29.2 Nutrition related diagnosis: Nutrition diagnosis details: Nutrition problem: Increased nutrient needs Nutrition etiology: Acute illness Nutrition signs and symptoms: HEALING NEEDS S/P SURGERY Nutrition prescription: 1. RECOMMEND CONTINUE CA RDIAC DIET. HONOR FOOD PREFERENCES APPROPRIATE WITH DIET ORDER. 2. PROV VENTURA GLUCERNA TID WITH MEALS. Dietitian name: Keri Willson RD, LD Assessment completed: 10/04/22 Physical Exam General appearance: alert, awake, oriented Head/Eyes: CHISHOLM HAIR AND ADAMES WEARING EYEGLASSE S Neck: no JVD Cardiovascular: normal heart sounds, regular rat e rhythm Respiratory: aerating well, clear to auscultatio n Abdomen: non-tender, normal bowel sounds, soft Extremities: no edema Musculoskeletal: normal inspection Neuro/RN ELIGIBILITY: no motor deficits Skin: normal color Psychiatry: normal affect, normal judgment/insig ht Results Findings/Data: Laboratory Tests 10/04 10/04 10/04 10/04 10/03 1144 0530 0456 0113 2159 Chemistry Sodium (134 - 147 mEq/L) 138 Potassium (3.4 - 5.0 mEq/L) 4.3 Chloride (100 - 108 mEq/L) 105 Carbon Dioxide (21 - 33 mEq/l) 26 Anion Gap (0 - 20) 12 BUN (7 - 18 mg/dL) 11 Creatinine (0.6 - 1.3 mg/dL) 1.1 Glomerular Filtr Rate (70 - 80) 67.9 L Glucose (70 - 110 mg/dL) 174 H POC Glucose (70 - 110 MG/DL) 215 H 198 H 161 H 102 Calcium (8.0 - 10.5 mg/dL) 8.9 Magnesium (1.80 - 2.40 mg/dL) 1.56 L 10/03 1640 Chemistry POC Glucose (70 - 110 MG/DL) 218 H Laboratory Tests 10/04 0456 Hematology WBC (4.5 - 11.0 x10 3/uL) 9.9 RBC (4.00 - 5.60 x10 6/uL) 2.99 L Hgb (12.5 - 16.9 g/dL) 9.4 L Hct (37.5 - 50.7 %) 28.8 L MCV (81.0 - 99.0 fL) 96.3 MCH (27.0 - 33.0 pg) 31.4 MCHC (33.0 - 37.0 g/dL) 32.6 L RDW (11.5 - 14.5 %) 15.0 H Plt Count (150 - 400 x10 3/uL) 284 MPV (7.0 - 9.0 fL) 10.5 H Neut % (Auto) (56.0 - 77.0 %) 79.6 H Lymph % (Auto) (14.0 - 32.0 %) 9.7 L Isabella % (Auto) (4.8 - 9.0 %) 7.8 Eos % (Auto) (0.3 - 3.7 %) 0.9 Baso % (Auto) (0.0 - 2.0 %) 0.2 Neut # (Auto) (2.0 - 7.6 x10 3/uL) 7.88 H Lymph # (Auto) (1.0 - 3.8 x10 3/uL) 0.96 L Isabella # (Auto) (0.1 - 0.8 x10 3/uL) 0.77 Eos # (Auto) (0.0 - 0.2 x10 3/uL) 0.09 Baso # (Auto) (0.0 - 0.2 x10 3/uL) 0.02 Abs Immat Gran (auto) (0.00 - 0.03 x10 3/uL) 0 .18 H Add Manual Diff NO Immature Gran % (0.0 - 2.0 %) 1.8 Nucleated RBC % (0 - 0 %) 0.0 Nucleated RBCs # (Man) (0.0 - 0.1 x10 3/uL) 0.0 0 Free Text Obj Notes Free Text Obj Notes: General appearance: alert, awake, oriented Head/Eyes: atraumatic, normocephalic ENT: moist mucosal membranes, normal pharynx Neck: non-tender, supple/no meningismus, no JVD Cardiovascular: normal capillary refill, normal heart sounds, regular rate rhythm Respiratory: aerating well, clear to auscultatio n, symmetric expansion Abdomen: non-tender, normal bowel sounds, soft, no distention Extremities: no clubbing, no cyanosis, no edema Neuro/RN ELIGIBILITY: alert, oriented X 3, CNII-XII intact Skin: dry, intact Psychiatry: normal affect, normal judgment/insig ht Diagnosis, Assessment Plan Problem List/A P: 1. CAD (coronary artery disease) 2. Severe aortic stenosis 3. S/P CABG x 2 4. S/P AVR Consultants: cardiovascular surgery Free Text DxA P Notes Free text DxA P notes: NSTEMI, 3-V CAD, SEVERE , S/P CABGX2, S/P AVR, S/P LEYDI ISOLATION - CARD/CTS SEEN, PLAN PER CTS, ON CT/KING, REPEAT ECHO EF 40-45% Continue aspirin 81 mg daily Atorvastatin 80 mg at bedtime ?pneumoperitoneum? 09/29- as per CXR report. defer to critical care for further evaluation. ANEMIA OF SURGICAL BLOOD LOSS - HGB FROM 14 TO 7 .2, TX PRN Pulmonary edema due to aortic stenosis - COMPENS ATED, ECHO EF 45-50%, DD Chest x-ray with bibasilar opacities BNP elevated at 3114 Hypertension - STABLE Resume home lisinopril 10 mg p.o. daily Hydralazine 10 mg IV every 6 hours as n eeded. Blood pressure greater than 170 Type 2 diabetes mellitus - GOOD, CONT ISS, HGBA1 C 6.8%, LDL 40 Hold home metformin, empagliflozin, and semaglu tide Low-dose sliding scale insulin before meals and at bedtime Hyperlipidemia LDL 40, CONT Atorvastatin 80 mg a t bedtime DVT prophylaxis: Heparin drip, cardiology protoc ol Diet: Carbohydrate consistent CODE STATUS: DO NOT RESUSCITATE Patient reports he has an advanced directive His medical power of banking attorney is son [place] 09/29- POD #3 AVR and CABG x2 . ?pneumoperitoneuam on CXR. awaiting critical care recs. 10/01- POD 5, central line DC'd, ivf's stopped, kidney function stable, king cath remains x1 more day 10/02: Plan to transfer to [facility]N 1 10/03- Continue plan per cards, and CTS. Transfer to CV 10/04 pending placement at 1438 RPT #:[id number] END OF REPORT 2022-10-04 11:47:00-00:00 [facility]ACL [facility] Rehab Progress Note REPORT#:[id number] REPORT STATUS: Signed DATE:10/04/22 TIME: 1147 PATIENT: MONICA BECK UNIT #: [id number] ROOM/BED: [place] [id number] : 42 AGE: 82 SEX: M ATTEND: Nicolasa Maria MD ADM AUTHOR: Starr Wisdom [employer] * ALL edits or amendments must be made on the [employer] document * Subjective Chief complaint: Rehab follow-up Patient denies any pain Patient denies any shortness of breath Patient up out of bed in chair No ORTIZ/N/V/D 14 systems reviewed and negative except that men tioned above. Objective General VS: Vital Signs: Date Time Temp Pulse Resp B/P B/P Pulse O2 O2 F low FiO2 Mean Ox Delivery Rate 10/04 0958 98 Room air 21 / 0806 98.1 78 20 141/67 0.0 96 Room air 05/16 0600 74 27 136/63 91 94 05/16 0528 97.9 71 14 122/60 0.0 95 Room air 05/16 0500 73 24 122/60 86 90 05/16 0400 72 25 148/65 94 97 05/16 0300 75 139/70 97 99 05/16 0231 97.9 71 14 132/68 0.0 95 Room air 05/16 0227 75 25 132/68 92 95 05/16 0200 69 27 137/63 91 91 05/16 0153 69 31 93 05/16 0148 71 33 139/65 93 05/16 0100 66 26 132/61 88 95 05/16 0000 67 24 128/60 86 96 05/15 2300 70 22 140/70 99 93 05/15 2200 78 30 148/72 103 96 05/15 2100 76 28 156/71 102 96 05/15 2000 69 18 156/68 98 99 05/15 1900 72 26 145/66 95 99 05/15 1701 74 28 178/75 108 99 05/15 1600 68 26 140/63 91 97 05/15 1531 95 Room air 21 05/15 1500 66 135/64 92 99 05/15 1400 77 146/99 119 93 05/15 1300 65 153/67 97 96 05/15 1200 65 25 141/60 87 96 PATIENT WEIGHT: Weight (lb): 169 Weight (oz): 15.62 Weight (kg): 77.100 Medications: Active Meds + DC'd Last 24 Hrs Acetaminophen (TYLENOL) 650 MG Q4H PRN PRN PO Magnesium Sulfate (MAGNESIUM SULFATE 2GM/SWFI 50 ML) 50 ML ONCE ONE IV ( CAN) Magnesium Sulfate (MAGNESIUM SULFATE 4GM/SWFI 10 0ML) 100 ML ONCE ONE IV Sodium Chloride (SODIUM CHLORIDE) 10 ML ASDIR IV Fentanyl Citrate (SUBLIMAZE) 50 MCG Q6H PRN PRN IV (DC) Insulin Glargine (Semglee) 15 UNIT BID SUBQ Insulin Human Lispro (HUMALOG) 0 Q6HR SUBQ Ipratropium [place] (ATROVENT) 500 MCG RTQ2H PRN PRN INH Cyanocobalamin (Vitamin B-12 500 mcg tab) 500 MC G DAILY PO Ferrous Sulfate (FERROUS SULFATE) 325 MG DAILY P O Bisacodyl (DULCOLAX) 10 MG ONCE PRN RECTAL Amiodarone HCl (AMIODARONE HCL) 450 MG ASDIR IV (DC) Dextrose/Water (D5%W NON-DEHP) 250 ML Dopamine HCl/Dextrose (DOPamine 400MG/D5W 250ML) 250 ML ASDIR IV (DC) Clopidogrel Bisulfate (Plavix) 75 MG DAILY PO Polyethylene Glycol (MIRALAX) 17 GM DAILY PO Pantoprazole (PROTONIX) 40 MG DAILY@0600 PO Aspirin (ASPIRIN) 81 MG DAILY PO Amiodarone HCl (CORDARONE) 200 MG TID PO Docusate Sodium (COLACE) 100 MG BID PO Melatonin (Melatonin) 6 MG BEDTIME PO Metoprolol Tartrate (LOPRESSOR) 12.5 MG Q12HR PO Sennosides (Senna Lax 8.6 MG TABLET) 17.2 MG BED TIME PO Calcium Chloride (CALCIUM CHLORIDE) 1 GM ASDIR P RN IV (DC) Dextrose/Water (DEXTROSE 10% IN WATER) 125 ML DIR PRN IV (CKD) Dextrose/Water (DEXTROSE 10% IN WATER) 250 ML DIR PRN IV (CKD) Epinephrine (ADRENALIN CHLORIDE) 4 MG ASDIR IV ( DC) Dextrose/Water (DEXTROSE 5% WATER) 246 ML Glucagon (GLUCAGON) 1 MG ASDIR PRN IM Magnesium Sulfate (MAGNESIUM SULFATE 4GM/SWFI 10 0ML) 100 ML ASDIR PRN IV Magnesium Sulfate (MAGNESIUM SULFATE 2GM/SWFI 50 ML) 50 ML ASDIR PRN IV Magnesium Sulfate/Dextrose (MAGNESIUM SULFATE 1G M/D5W 100ML) 100 ML ASDIR PRN IV Nitroglycerin/Dextrose (NITROGLYCERIN 50,000MCG/ D5W 250ML) 250 ML ASDIR IV (DC) Norepinephrine Bitartrate (NOREPINEPHRINE 8 MG/N S 250 ML) 250 ML TITRATE IV (DC) Ondansetron HCl (ZOFRAN) 4 MG Q6H PRN PRN IV Potassium Chloride (KCL 20MEQ/SWFI 100ML) 100 ML ASDIR PRN IV (DC) Sodium Bicarbonate (SODIUM BICARBONATE) 50 MEQ A SDIR PRN IV (DC) Physical Exam General appearance: alert, awake Psych: alert, oriented x 3 HEENT: anicteric, mucosal membranes moist Neck: supple, no JVD Cardiovascular: regular rate rhythm, no murmur Respiratory: aerating well, clear bilaterally Abdomen: bowel sounds present, non-distended, so ft, non-tender Skin: dry, intact, no rash, Surgical incisiion D /I Musculoskeletal - general: Musculoskeletal - general: swelling (minimal ), moving all ext AG Neuro/RN ELIGIBILITY: alert, oriented X 3, CNII-XII intact, normal speech, reflexes equal bilat, no motor deficits, no sensory deficits Results Findings/Data: Laboratory Tests: 10/04 10/04 10/04 10/03 10/03 0530 0456 0113 2159 1640 Chemistry Sodium (134 - 147 mEq/L) 138 Potassium (3.4 - 5.0 mEq/L) 4.3 Chloride (100 - 108 mEq/L) 105 Carbon Dioxide (21 - 33 mEq/l) 26 Anion Gap (0 - 20) 12 BUN (7 - 18 mg/dL) 11 Creatinine (0.6 - 1.3 mg/dL) 1.1 Glomerular Filtr Rate (70 - 80) 67.9 L Glucose (70 - 110 mg/dL) 174 H POC Glucose (70 - 110 MG/DL) 198 H 161 H 102 21 8 H Calcium (8.0 - 10.5 mg/dL) 8.9 Magnesium (1.80 - 2.40 mg/dL) 1.56 L Hematology WBC (4.5 - 11.0 x10 3/uL) 9.9 RBC (4.00 - 5.60 x10 6/uL) 2.99 L Hgb (12.5 - 16.9 g/dL) 9.4 L Hct (37.5 - 50.7 %) 28.8 L MCV (81.0 - 99.0 fL) 96.3 MCH (27.0 - 33.0 pg) 31.4 MCHC (33.0 - 37.0 g/dL) 32.6 L RDW (11.5 - 14.5 %) 15.0 H Plt Count (150 - 400 x10 3/uL) 284 MPV (7.0 - 9.0 fL) 10.5 H Neut % (Auto) (56.0 - 77.0 %) 79.6 H Lymph % (Auto) (14.0 - 32.0 %) 9.7 L Isabella % (Auto) (4.8 - 9.0 %) 7.8 Eos % (Auto) (0.3 - 3.7 %) 0.9 Baso % (Auto) (0.0 - 2.0 %) 0.2 Neut # (Auto) (2.0 - 7.6 x10 3/uL) 7.88 H Lymph # (Auto) (1.0 - 3.8 x10 3/uL) 0.96 L Isabella # (Auto) (0.1 - 0.8 x10 3/uL) 0.77 Eos # (Auto) (0.0 - 0.2 x10 3/uL) 0.09 Baso # (Auto) (0.0 - 0.2 x10 3/uL) 0.02 Abs Immat Gran (auto) (0.00 - 0.03 0.18 H x10 3/uL) Add Manual Diff NO Immature Gran % (0.0 - 2.0 %) 1.8 Nucleated RBC % (0 - 0 %) 0.0 Nucleated RBCs # (Man) (0.0 - 0.1 0.00 x10 3/uL) Diagnosis, Assessment Plan Free Text A P: Severe aortic stenosis s/p AVR Multivessel CAD s/p CABG x2 Impaired mobility and gait Generalized weakness Physical deconditioning Postoperative anemia Non-STEMI HTN Hyperlipidemia Plan: Continue PT/OT Out of bed to chair Work on strength, bed mobility, transfers, gait Sternal precaution Increase endurance Fall precautions Monitor p.o. intake and nutrition Strict decubitus precautions Current level of function: Ambulation 500 feet no assist device supervision Patient cleared to go home with family support w hen medically cleared Case management for discharge plan of care Time spent reviewing HPI, chart, labs, notes, an d assessing patient Discussed with patient safet y awareness with mobility and gait, and awareness of sternal precaution. Patient verbalized understan ding Rehab attestation: Face to face exam completed. Treatment plan disc ussed with patient. at 1151 RPT #:[id number] END OF REPORT 2022-10-04 10:08:00-00:00 [facility]L [facility] ([facility]) Nephrology Progress Note REPORT#:[id number] REPORT STATUS: Signed DATE:10/04/22 TIME: 1008 PATIENT: MONICA BECK UNIT #: [id number] ROOM/BED: [place] [id number] : 42 AGE: 82 SEX: M ATTEND: Nicolasa Maria MD ADM AUTHOR: Nila Cheung MD * ALL edits or amendments must be made on the [employer] document * Subjective Chief complaint: follow up of ARF Comments: doing well Objective General VS/I O: Vital Signs: Date Time Temp Pulse Resp B/P B/P Pulse O2 O2 F low FiO2 Mean Ox Delivery Rate 10/04 0958 98 Room air 21 10/04 0806 98.1 78 20 141/67 0.0 96 Room air /16 0600 74 27 136/63 91 94 05/16 0528 97.9 71 14 122/60 0.0 95 Room air 05/16 0500 73 24 122/60 86 90 05/16 0400 72 25 148/65 94 97 05/16 0300 75 139/70 97 99 05/16 0231 97.9 71 14 132/68 0.0 95 Room air 05/16 0227 75 25 132/68 92 95 05/16 0200 69 27 137/63 91 91 05/16 0153 69 31 93 05/16 0148 71 33 139/65 93 05/16 0100 66 26 132/61 88 95 05/16 0000 67 24 128/60 86 96 05/15 2300 70 22 140/70 99 93 05/15 2200 78 30 148/72 103 96 05/15 2100 76 28 156/71 102 96 05/15 2000 69 18 156/68 98 99 05/15 1900 72 26 145/66 95 99 05/15 1701 74 28 178/75 108 99 05/15 1600 68 26 140/63 91 97 05/15 1531 95 Room air 21 05/15 1500 66 135/64 92 99 05/15 1400 77 146/99 119 93 05/15 1300 65 153/67 97 96 05/15 1200 65 25 141/60 87 96 10/03 1112 99 Room air 21 10/03 1100 67 19 141/66 95 95 10/03 1020 78 26 135/63 90 100 24 hour I O ending at 0700: 10/04 0700 10/03 1900 Intake Total Output Total 1999 475 Balance -1999475 Number 1 Bowel Movements Output, Urine 1999 475 Patient 77.1 kg Weight Weight Standing scale Measurement Method PATIENT WEIGHT: Weight (lb): 169 Weight (oz): 15.62 Weight (kg): 77.100 Medications Active Meds + DC'd Last 24 Hrs Magnesium Sulfate (MAGNESIUM SULFATE 2GM/SWFI 50 ML) 50 ML ONCE ONE IV ( CAN) Magnesium Sulfate (MAGNESIUM SULFATE 4GM/SWFI 10 0ML) 100 ML ONCE ONE IV Sodium Chloride (SODIUM CHLORIDE) 10 ML ASDIR IV Fentanyl Citrate (SUBLIMAZE) 50 MCG Q6H PRN PRN IV (DC) Insulin Glargine (Semglee) 15 UNIT BID SUBQ Insulin Human Lispro (HUMALOG) 0 Q6HR SUBQ Ipratropium [place] (ATROVENT) 500 MCG RTQ2H PRN PRN INH Cyanocobalamin (Vitamin B-12 500 mcg tab) 500 MC G DAILY PO Ferrous Sulfate (FERROUS SULFATE) 325 MG DAILY P O Bisacodyl (DULCOLAX) 10 MG ONCE PRN RECTAL Amiodarone HCl (AMIODARONE HCL) 450 MG ASDIR IV (DC) Dextrose/Water (D5%W NON-DEHP) 250 ML Dopamine HCl/Dextrose (DOPamine 400MG/D5W 250ML) 250 ML ASDIR IV (DC) Clopidogrel Bisulfate (Plavix) 75 MG DAILY PO Polyethylene Glycol (MIRALAX) 17 GM DAILY PO Pantoprazole (PROTONIX) 40 MG DAILY@0600 PO Aspirin (ASPIRIN) 81 MG DAILY PO Amiodarone HCl (CORDARONE) 200 MG TID PO Docusate Sodium (COLACE) 100 MG BID PO Melatonin (Melatonin) 6 MG BEDTIME PO Metoprolol Tartrate (LOPRESSOR) 12.5 MG Q12HR PO Sennosides (Senna Lax 8.6 MG TABLET) 17.2 MG BED TIME PO Calcium Chloride (CALCIUM CHLORIDE) 1 GM ASDIR P RN IV (DC) Dextrose/Water (DEXTROSE 10% IN WATER) 125 ML DIR PRN IV (CKD) Dextrose/Water (DEXTROSE 10% IN WATER) 250 ML DIR PRN IV (CKD) Epinephrine (ADRENALIN CHLORIDE) 4 MG ASDIR IV ( DC) Dextrose/Water (DEXTROSE 5% WATER) 246 ML Glucagon (GLUCAGON) 1 MG ASDIR PRN IM Magnesium Sulfate (MAGNESIUM SULFATE 4GM/SWFI 10 0ML) 100 ML ASDIR PRN IV Magnesium Sulfate (MAGNESIUM SULFATE 2GM/SWFI 50 ML) 50 ML ASDIR PRN IV Magnesium Sulfate/Dextrose (MAGNESIUM SULFATE 1G M/D5W 100ML) 100 ML ASDIR PRN IV Nitroglycerin/Dextrose (NITROGLYCERIN 50,000MCG/ D5W 250ML) 250 ML ASDIR IV (DC) Norepinephrine Bitartrate (NOREPINEPHRINE 8 MG/N S 250 ML) 250 ML TITRATE IV (DC) Ondansetron HCl (ZOFRAN) 4 MG Q6H PRN PRN IV Potassium Chloride (KCL 20MEQ/SWFI 100ML) 100 ML ASDIR PRN IV (DC) Sodium Bicarbonate (SODIUM BICARBONATE) 50 MEQ A SDIR PRN IV (DC) Physical Exam General appearance: alert, awake, oriented Head/eyes: atraumatic, normocephalic, PERRLA ENT: moist mucous membranes Neck: no JVD, no lymphadenopathy Cardiovascular: normal heart sounds, regular rat e and rhythm, no rub Respiratory: aerating well, clear to auscultatio n, no distress Abdomen: non-tender, normal bowel sounds, soft, no rebound Genitourinary: no bladder distention, no flank p ain Extremities: no edema, no gangrene Neuro/RN ELIGIBILITY: alert, oriented X 3, CN II-XII intact , normal speech Results Findings/Data: Laboratory Tests 10/04 10/04 10/04 10/03 10/03 0530 0456 0113 2159 1640 Chemistry Sodium (134 - 147 mEq/L) 138 Potassium (3.4 - 5.0 mEq/L) 4.3 Chloride (100 - 108 mEq/L) 105 Carbon Dioxide (21 - 33 mEq/l) 26 Anion Gap (0 - 20) 12 BUN (7 - 18 mg/dL) 11 Creatinine (0.6 - 1.3 mg/dL) 1.1 Glomerular Filtr Rate (70 - 80) 67.9 L Glucose (70 - 110 mg/dL) 174 H POC Glucose (70 - 110 MG/DL) 198 H 161 H 102 2 18 H Calcium (8.0 - 10.5 mg/dL) 8.9 Magnesium (1.80 - 2.40 mg/dL) 1.56 L Laboratory Tests 10/04 0456 Hematology WBC (4.5 - 11.0 x10 3/uL) 9.9 RBC (4.00 - 5.60 x10 6/uL) 2.99 L Hgb (12.5 - 16.9 g/dL) 9.4 L Hct (37.5 - 50.7 %) 28.8 L MCV (81.0 - 99.0 fL) 96.3 MCH (27.0 - 33.0 pg) 31.4 MCHC (33.0 - 37.0 g/dL) 32.6 L RDW (11.5 - 14.5 %) 15.0 H Plt Count (150 - 400 x10 3/uL) 284 MPV (7.0 - 9.0 fL) 10.5 H Neut % (Auto) (56.0 - 77.0 %) 79.6 H Lymph % (Auto) (14.0 - 32.0 %) 9.7 L Isabella % (Auto) (4.8 - 9.0 %) 7.8 Eos % (Auto) (0.3 - 3.7 %) 0.9 Baso % (Auto) (0.0 - 2.0 %) 0.2 Neut # (Auto) (2.0 - 7.6 x10 3/uL) 7.88 H Lymph # (Auto) (1.0 - 3.8 x10 3/uL) 0.96 L Isabella # (Auto) (0.1 - 0.8 x10 3/uL) 0.77 Eos # (Auto) (0.0 - 0.2 x10 3/uL) 0.09 Baso # (Auto) (0.0 - 0.2 x10 3/uL) 0.02 Abs Immat Gran (auto) (0.00 - 0.03 x10 3/uL) 0 .18 H Add Manual Diff NO Immature Gran % (0.0 - 2.0 %) 1.8 Nucleated RBC % (0 - 0 %) 0.0 Nucleated RBCs # (Man) (0.0 - 0.1 x10 3/uL) 0.0 0 Diagnosis, Assessment Plan Free Text A P: 1. JOSE ARMANDO likely prerenal insufficiency. Cr eatinine is stable at 1.5>1.3>1.1> 1.0 >1.1 2. Status post CABG and AVR CT surgery following 3. Diabetes type 2 per primary team 4. Anemia PRBC transfusion if hemoglobin less th an 7. No overt GI bleed. dw at bedside Echocardiogram on 09/28/2022 1. Left ventricle: Systolic function is mildly r educed. The estimated ejection fraction is 40-44%. 2. Aortic valve: There is a bioprosthetic valve. Electronically Signed by Nila Cheung MD on at 1914 RPT #:[id number] END OF REPORT 2022-10-04 08:59:00-00:00 [facility] Cardiology Progress Note REPORT#:[id number] REPORT STATUS: Signed DATE:10/04/22 TIME: 0859 PATIENT: MONICA BECK UNIT #: [id number] ROOM/BED: [place] [address] : 42 AGE: 82 SEX: M ATTEND: Nicolasa Maria MD ADM AUTHOR: Geneva Silverman [facility] * ALL edits or amendments must be made on the [employer]/computer document * Subjective Comments: c/o low back pain Objective General VS/I O: 24 hour I O ending at 0700: 10/04 0700 10/03 1900 Intake Total Output Total 1999 Balance -1999475 Number 1 Bowel Movements Output, Urine 1999 475 Patient 77.1 kg Weight Weight Standing scale Measurement Method Vital Signs: Date Time Temp Pulse Resp B/P B/P Pulse O2 O2 Flow FiO2 Mean Ox Delivery Rate 10/04 0806 36.7 78 20 141/67 0.0 96 Room air 10/04 0600 74 27 136/63 91 94 10/04 0528 36.6 71 14 122/60 0.0 95 Room air 10/04 0500 73 24 122/60 86 90 10/04 0400 72 25 148/65 94 97 10/04 0300 75 139/70 97 99 05/16 0231 36.6 71 14 132/68 0.0 95 Room air 05/16 0227 75 25 132/68 92 95 05/16 0200 69 27 137/63 91 91 05/16 0153 69 31 93 05/16 0148 71 33 139/65 93 05/16 0100 66 26 132/61 88 95 05/16 0000 67 24 128/60 86 96 05/15 2300 70 22 140/70 99 93 05/15 2200 78 30 148/72 103 96 05/15 2100 76 28 156/71 102 96 05/15 2000 69 18 156/68 98 99 05/15 1900 72 26 145/66 95 99 05/15 1701 74 28 178/75 108 99 05/15 1600 68 26 140/63 91 97 05/15 1531 95 Room air 21 05/15 1500 66 135/64 92 99 05/15 1400 77 146/99 119 93 05/15 1300 65 153/67 97 96 05/15 1200 65 25 141/60 87 96 05/15 1112 99 Room air 21 05/15 1100 67 19 141/66 95 95 05/15 1020 78 26 135/63 90 100 05/15 1000 71 29 123/57 79 97 05/15 0900 72 27 135/64 92 100 PATIENT WEIGHT: Weight (lb): 169 Weight (oz): 15.62 Weight (kg): 77.100 Medications: Active Meds + DC'd Last 24 Hrs Magnesium Sulfate (MAGNESIUM SULFATE 2GM/SWFI 50 ML) 50 ML ONCE ONE IV ( CANr) Magnesium Sulfate (MAGNESIUM SULFATE 4GM/SWFI 10 0ML) 100 ML ONCE ONE IV (UNV) Sodium Chloride (SODIUM CHLORIDE) 10 ML ASDIR IV Fentanyl Citrate (SUBLIMAZE) 50 MCG Q6H PRN PRN IV (DC) Insulin Glargine (Semglee) 15 UNIT BID SUBQ Insulin Human Lispro (HUMALOG) 0 Q6HR SUBQ Ipratropium [place] (ATROVENT) 500 MCG RTQ2H PRN PRN INH Cyanocobalamin (Vitamin B-12 500 mcg tab) 500 MC G DAILY PO Ferrous Sulfate (FERROUS SULFATE) 325 MG DAILY P O Bisacodyl (DULCOLAX) 10 MG ONCE PRN RECTAL Amiodarone HCl (AMIODARONE HCL) 450 MG ASDIR IV (DC) Dextrose/Water (D5%W NON-DEHP) 250 ML Dopamine HCl/Dextrose (DOPamine 400MG/D5W 250ML) 250 ML ASDIR IV (DC) Clopidogrel Bisulfate (Plavix) 75 MG DAILY PO Polyethylene Glycol (MIRALAX) 17 GM DAILY PO Pantoprazole (PROTONIX) 40 MG DAILY@0600 PO Aspirin (ASPIRIN) 81 MG DAILY PO Amiodarone HCl (CORDARONE) 200 MG TID PO Docusate Sodium (COLACE) 100 MG BID PO Melatonin (Melatonin) 6 MG BEDTIME PO Metoprolol Tartrate (LOPRESSOR) 12.5 MG Q12HR PO Sennosides (Senna Lax 8.6 MG TABLET) 17.2 MG BED TIME PO Calcium Chloride (CALCIUM CHLORIDE) 1 GM ASDIR P RN IV (DC) Dextrose/Water (DEXTROSE 10% IN WATER) 125 ML DIR PRN IV (CKD) Dextrose/Water (DEXTROSE 10% IN WATER) 250 ML DIR PRN IV (CKD) Epinephrine (ADRENALIN CHLORIDE) 4 MG ASDIR IV ( DC) Dextrose/Water (DEXTROSE 5% WATER) 246 ML Glucagon (GLUCAGON) 1 MG ASDIR PRN IM Magnesium Sulfate (MAGNESIUM SULFATE 4GM/SWFI 10 0ML) 100 ML ASDIR PRN IV Magnesium Sulfate (MAGNESIUM SULFATE 2GM/SWFI 50 ML) 50 ML ASDIR PRN IV Magnesium Sulfate/Dextrose (MAGNESIUM SULFATE 1G M/D5W 100ML) 100 ML ASDIR PRN IV Nitroglycerin/Dextrose (NITROGLYCERIN 50,000MCG/ D5W 250ML) 250 ML ASDIR IV (DC) Norepinephrine Bitartrate (NOREPINEPHRINE 8 MG/N S 250 ML) 250 ML TITRATE IV (DC) Ondansetron HCl (ZOFRAN) 4 MG Q6H PRN PRN IV Potassium Chloride (KCL 20MEQ/SWFI 100ML) 100 ML ASDIR PRN IV (DC) Sodium Bicarbonate (SODIUM BICARBONATE) 50 MEQ A SDIR PRN IV (DC) Status post: CABG x 2. Physical Exam General appearance: alert, awake, oriented ENT: normal nose Neck: non-tender, no JVD Cardiovascular: CV assessment: regular rate and rhythm Respiratory: decreased breath sounds, no distres s Abdomen: soft, non-tender, normal bowel sounds, no distention Genitourinary: no flank pain, no urinary cathete r Upper extremity: UE assessment: normal temperature Lower extremity: LE assessment: edema (trace) Musculoskeletal: normal inspection Neuro/RN ELIGIBILITY: alert, oriented X 3, normal speech Skin: dry Psychiatry: normal affect, normal mood Results Findings/Data: Laboratory Tests 10/04 10/04 10/04 10/03 10/03 0530 0456 0113 2159 1640 Chemistry Sodium (134 - 147 mEq/L) 138 Potassium (3.4 - 5.0 mEq/L) 4.3 Chloride (100 - 108 mEq/L) 105 Carbon Dioxide (21 - 33 mEq/l) 26 Anion Gap (0 - 20) 12 BUN (7 - 18 mg/dL) 11 Creatinine (0.6 - 1.3 mg/dL) 1.1 Glomerular Filtr Rate (70 - 80) 67.9 L Glucose (70 - 110 mg/dL) 174 H POC Glucose (70 - 110 MG/DL) 198 H 161 H 102 21 8 H Calcium (8.0 - 10.5 mg/dL) 8.9 Magnesium (1.80 - 2.40 mg/dL) 1.56 L Laboratory Tests 10/04 0456 Hematology WBC (4.5 - 11.0 x10 3/uL) 9.9 RBC (4.00 - 5.60 x10 6/uL) 2.99 L Hgb (12.5 - 16.9 g/dL) 9.4 L Hct (37.5 - 50.7 %) 28.8 L MCV (81.0 - 99.0 fL) 96.3 MCH (27.0 - 33.0 pg) 31.4 MCHC (33.0 - 37.0 g/dL) 32.6 L RDW (11.5 - 14.5 %) 15.0 H Plt Count (150 - 400 x10 3/uL) 284 MPV (7.0 - 9.0 fL) 10.5 H Neut % (Auto) (56.0 - 77.0 %) 79.6 H Lymph % (Auto) (14.0 - 32.0 %) 9.7 L Isabella % (Auto) (4.8 - 9.0 %) 7.8 Eos % (Auto) (0.3 - 3.7 %) 0.9 Baso % (Auto) (0.0 - 2.0 %) 0.2 Neut # (Auto) (2.0 - 7.6 x10 3/uL) 7.88 H Lymph # (Auto) (1.0 - 3.8 x10 3/uL) 0.96 L Isabella # (Auto) (0.1 - 0.8 x10 3/uL) 0.77 Eos # (Auto) (0.0 - 0.2 x10 3/uL) 0.09 Baso # (Auto) (0.0 - 0.2 x10 3/uL) 0.02 Abs Immat Gran (auto) (0.00 - 0.03 x10 3/uL) 0. 18 H Add Manual Diff NO Immature Gran % (0.0 - 2.0 %) 1.8 Nucleated RBC % (0 - 0 %) 0.0 Nucleated RBCs # (Man) (0.0 - 0.1 x10 3/uL) 0.0 0 Laboratory Tests 10/04 0456 Chemistry Magnesium (1.80 - 2.40 mg/dL) 1.56 L Results: labs reviewed, vital signs reviewed, [facility] personally rev'd Telemetry Interpretation: sinus rhythm Diagnosis, Assessment Plan Plan discussed with: patient, spouse/partner Free Text DxA P Notes Free Text DxA P Notes: 82 YO male with MHx of DM, HLD, . He presented to [facility] with CP, found to have NSTEMI. LHC ensued that showed sev ere multivessel CAD. He is transferred to us and underwent CABG and AVR on 09/26/22. 1. Multivessel CAD S/p CABG x2 (NAIR to LAD and SVG to OM), ALAA, a nd SAVR on DAPT, BB, statin hemodynamics stable post-op care per CTS negative fluid balance 2. s/p SAVR continue DAPT 3. Hypertension BP stable continue BB 4. Diabetes mellitus per critical care 5. ELevated LFT. AST/ALT trending down. 6. Report of post-op afib - now in sinus EKG apper to be accelerated Junctional tachycard ia on PO amio and BB Stable, on room air. Discharge when cleared by CTS Outpatient follow-up with Dr. Kent. at 1216 Electronically Signed by Jakob Pa MD on at 2020 RPT #:[id number] END OF REPORT 2022-10-04 08:53:00-00:00 [facility] Cardiothoracic Surgery Prog REPORT#:[id number] REPORT STATUS: Signed DATE:10/04/22 TIME: 08 PATIENT: MONICA BECK UNIT #: [id number] ROOM/BED: [place] [address] : 42 AGE: 82 SEX: M ATTEND: Nicolasa Maria MD ADM AUTHOR: Analilia Erwin [facility] * ALL edits or amendments must be made on the E[employer]/computer document * General Post-op: day 8 Status post: 09/27/22 ROCEDURES: 1. Aortic valve replacement (25 Inspiris valve) . 2. Coronary artery bypass graft surgery x2 (CASTRO A to LAD, saphenous vein to marginal). 3. Amputation of left atrial appendage. 4. Endoscopic vein harvest (right greater saphe nous vein). 5. Posterior pericardiotomy. Subjective Chief complaint: POst op AVR Review of Systems Constitutional: Denies: chills, fever, malaise. Allergy/Immun: Denies: allergic reaction. Respiratory: Denies: SOB. Cardiovascular: Denies: chest pain, palpitations. : Denies: dysuria, hematuria. Heme: Denies: bleeding. Neuro: Denies: dizziness, headache, vision change. All systems rev neg: except as marked Objective General VS/I O Last Documented: Result Date Time Pulse Ox 96 10/04 08 B/P 141/67 10/04 08 B/P Mean 0.0 10/04 08 O2 Delivery Room air 10/04 08 Temp 98.1 10/04 08 Pulse 78 10/04 0806 Resp 20 10/04 08 FiO2 21 10/03 1531 O2 Flow Rate 1 10/03 0421 24 hour I O ending at 0700: 10/04 0700 10/03 1900 Intake Total Output Total 1999 Balance -1999 -475 Number 1 Bowel Movements Output, Urine 1999 475 Patient 77.1 kg Weight Weight Standing scale Measurement Method PATIENT WEIGHT: Weight (lb): 169 Weight (oz): 15.62 Weight (kg): 77.100 Physical Exam General appearance: alert, awake, oriented Wound/incision: Location: Sternum dry, No oozing Site condition: edges approximated, incision in tact, no drainage HEENT: anicteric, mucosal membranes moist Neck: non-tender, supple/no meningismus Cardiovascular: normal heart sounds Murmur: Systolic 3/6 Respiratory: aerating well, symmetric expansion, no distress Abdomen: soft, non-tender, no distention Extremities: moves all Neuro/RN ELIGIBILITY: alert, oriented X 3, normal speech, n o motor deficits Psychiatry: normal affect, normal mood Diagnosis, Assessment Plan Hospital course to date: Mr Beck a very pleasant 82-year-old male with past medical history of diabetes, hyperlipidemia, restless leg syndrome aortic valve stenosis who presented to [facility] complaining of substernal chest pain across the anterior chest positive for n ausea and diaphoresis. CT chest showed small to moderate bilateral pleural effusions, ascending aorta measuring 4.2 cm. Cardiac enzymes elevated pat ient deemed non-STEMI. He was taken to the [facility] coronary angiogram revealed severe multivessel coronary artery disease. Patient started on heparin drip and transferred to [facility] for possible CABG and AVR. PLAN Coronary angiogram images will be uploaded in [employer] system Dr Maria explained to the patient his family t he angiogram findings and echocardiogram findings and recommended coronary artery bypass graft and aortic valve replacement. The surgery, risks involved, STS score, benefits, complications and alternatives were expl ained to the patient including risk of stroke, respiratory failure, need for tracheosto my, renal failure requiring dialysis, bleeding, infection. Patient acknowled ged understanding and is willing to proceed Initiate preop work-up for AVR Carotid ultrasound BLE venous doppler for vein mapping and marking UA to rule out UTI We will tentatively schedule patient for AVR on 09/26 Preop assessment ongoing Denies chest pain, no shortness of breath Remains on heparin drip Carotid ultrasound showed less than 50% stenosis bilaterally Noncontrasted CT chest performed at [facility] reviewed with Dr. Maria. Images will be uploaded in our system. Coronary angiogram images uploaded in [employer] o Plan for CABG and AVR tomorr ow morning. The surgery, risks involved, STS score, benefits, complications and alternatives were ex plained to the patient. He acknowledged understanding and is willing to pro ceed. Patient changed code status to FULL CODE as he i s going for surgery N.p.o. after midnight 09/27/22 POD 1 AAOx3 Respiratory: 3 l NC, wwean as tolerated. Encourage IS, Deep Breathing, CXR reviewed Cardiac: remains sinus rhtyhm. Pacing wires on s tandby GI: Continue Bowel regimen, no bm yet UO: 1200 Continue PT/OT Disposition: DVT prophylaxis Labs reveiwed- replace electrolytes as needed Patient seen and examined by Dr. Maria. Plan o f care discussed with multidisciplinary team 09/28/22 POD 2 AAOx3 Respiratory: On 2 L NC, 100%, wean as tolerated. Encourage IS, Deep Breathing, CXR reviewed, chest tube in place continue to d rain 300 cc Cardiac: Atrial fibrillation today. Amio bolus g iven, hypotension when moving to the chair. HGB trending down, Will repeat this Am. GI: Passing gas, continue Bowel regimen : King in place, UO: 425 Continue PT/OT Disposition: Pending course DVT prophylaxis Labs reveiwed- replace electrolytes as needed Patient seen and examined by Dr. Maria. Plan o f care discussed with multidisciplinary team 09/29/22 POD 3 AAOx3 Respiratory: On room air, 99% Encourage IS, Deep Breathing, CXR reviewed, CT in place, Still outputs high- continue to monitor. Cardiac: Sinus rhtyhm. Pacer on standby. HGB trending down, Will monitor and repeat. GI: Passing gas, continue Bowel regimen, elevati on liver enzymes likely from amiodarone, will hold Amio for now. : King in place, UO: Urine output low, will consult renal. Victoria t was started on dopamine yesterday subsequently went into A-fib RVR. Amio bolus was given Continue PT/OT Disposition: Pending course DVT prophylaxis Labs reveiwed- replace electrolytes as needed Patient seen and examined by Dr. Maria. Plan o f care discussed with multidisciplinary team 09/30/22 POD 5 AAOx3 Respiratory: On room air, 99% Encourage IS, Deep Breathing, CXR reviewed, Chest tubes out Cardiac: Sinus rhtyhm. Pacer on standby. HGB trending down, Will monitor and repeat. GI: Passing gas, continue Bowel regimen, elevati on liver enzymes likely from amiodarone, will hold Amio for now. : King in place, need 1 more day for urine ou tput. UO: Improving IV fluids stopped, renal f ollowing creatinine improving 1.3 from 1.5 today. Continue PT/OT Disposition: Pending course DVT prophylaxis Labs reveiwed- replace electrolytes as needed Patient seen and examined by Dr. Maria. Plan o f care discussed with multidisciplinary team DC central line 10/01/22 POD 6 AAOx3 Respiratory: On room air, 99% Encourage IS, Deep Breathing, CXR reviewed, Chest tubes out Cardiac: Sinus rhtyhm. Pacer on standby. HGB trending down, Will monitor and repeat. GI: Small BM yest- continue bowel regimen, Liver enzymes trending down. On p.o. Amio : DC king today, Renal function improing 1.3- ->1.1 UO:1800- off IV fluids Continue PT/OT Disposition: Pending course- patient wants to go home with DVT prophylaxis Labs reveiwed- replace electrolytes as needed Patient seen and examined by Dr. Maria. Plan o f care discussed with multidisciplinary team Okay to CVN 1 today 10/02/22 POD 6 AAOx3 Respiratory: On room air, 99% Encourage IS, Deep Breathing, CXR reviewed, Chest tubes out Cardiac: Patient went into atrial fibrillation t his a.m. Converted with amnio bolus and drip.. Pacer on standby. Hemoglobin stable 8.6 GI: Small BM yest- continue bowel regimen, Liver enzymes trending down. On p.o. Amio : DC king today, Renal function improing 1.3- ->1.1 UO:1725- off IV fluids Continue PT/OT Disposition: SNF-patient unable to care for him at home, Case management consulted. DVT prophylaxis Labs reveiwed- replace electrolytes as needed Patient seen and examined by Dr. Maria. Plan o f care discussed with multidisciplinary team Okay to CVN 1 today 10/03 Patient in stable condition CXR and labs reviewed, electrolytes replaced On room air, encourage I-S use Converted to NSR, on amiodarone, monitor LFTs Tolerating diet, nutritional supplements, +BM DVT ppx- SCDs Consult rehab Transfer to CV intermediate care unit 10/04/22 Patient resting comfortable, denies complaints Chest x-rays reviewed. Replace magnesium Respiratory: On room air Cardiac: Sinus rhythm, pacing wires in place on standby GI:+BM Patient has been out of bed with PT U0: 1999 Patient was seen and examined Dr. Maria. Discharge planning in progress, will discuss mayank sanchez case management Consultants: cardiovascular surgery at 0859 at 0237 RPT #:[id number] END OF REPORT 2022-10-03 13:57:00-00:00 [facility] ([facility] Hospitalist Progress Note REPORT#:[id number] REPORT STATUS: Signed DATE:10/03/22 TIME: 1357 PATIENT: MONICA BECK UNIT #: [id number] ROOM/BED: [place] [address] : 42 AGE: 82 SEX: M ATTEND: Nicolasa Maria MD ADM AUTHOR: Charlotte Fitzpatrick MD * ALL edits or amendments must be made on the [employer]/computer document * Subjective Chief complaint: no acute change Review of Systems All systems rev neg: except as noted Objective General VS/I O: Vital Signs: Date Time Temp Pulse Resp B/P B/P Pulse O2 O2 Flow FiO2 Mean Ox Delivery Rate 10/03 0820 100 Room air 21 10/03 0800 71 23 134/60 87 100 10/03 0645 68 27 94 10/03 0600 67 22 140/62 89 93 10/03 0500 65 18 156/65 93 94 10/03 0421 100 Nasal 1 cannula 10/03 0400 64 21 150/66 95 99 10/03 0300 74 136/63 91 94 10/03 0200 62 20 143/64 92 100 10/03 0100 62 21 132/63 91 98 10/03 0000 66 20 151/70 100 10/02 2314 72 22 170/72 104 97 10/02 2201 79 178/78 112 98 10/02 2100 68 22 166/72 104 99 05/14 2013 100 Room air 21 10/02 2001 65 140/66 95 97 10/02 1901 66 154/69 99 99 10/02 1708 25 10/02 1700 68 143/67 97 100 10/02 1632 97 Room air 21 10/02 1600 67 135/64 92 98 10/02 1500 64 25 139/64 92 100 10/02 1400 66 22 123/60 87 100 24 hour I O ending at 0700: 10/03 0700 10/02 1900 Intake Total 240 720 Output Total 1340 1275 Balance -1100 -555 Intake, Oral 240 240 Intake, Oral 480 Supplement Number 1 Bowel Movements Number Voids 7 Output, Urine 1340 1275 Patient 79.6 kg Weight Weight Standing scale Measurement Method PATIENT WEIGHT: Weight (lb): 175 Weight (oz): 7.81 Weight (kg): 79.600 Medications: Active Meds + DC'd Last 24 Hrs Sodium Chloride (SODIUM CHLORIDE) 10 ML ASDIR IV Fentanyl Citrate (SUBLIMAZE) 50 MCG Q6H PRN PRN IV Insulin Glargine (Semglee) 15 UNIT BID SUBQ Insulin Human Lispro (HUMALOG) 0 Q6HR SUBQ Ipratropium [place] (ATROVENT) 500 MCG RTQ2H PRN PRN INH Cyanocobalamin (Vitamin B-12 500 mcg tab) 500 MC G DAILY PO Ferrous Sulfate (FERROUS SULFATE) 325 MG DAILY P O Bisacodyl (DULCOLAX) 10 MG ONCE PRN RECTAL Amiodarone HCl (AMIODARONE HCL) 450 MG ASDIR IV (CKD) Dextrose/Water (D5%W NON-DEHP) 250 ML Mupirocin (BACTROBAN 2% 22 GM OINTMENT) 1 APPLIC BID NASAL (DC) Dopamine HCl/Dextrose (DOPamine 400MG/D5W 250ML) 250 ML ASDIR IV Clopidogrel Bisulfate (Plavix) 75 MG DAILY PO Polyethylene Glycol (MIRALAX) 17 GM DAILY PO Pantoprazole (PROTONIX) 40 MG DAILY@0600 PO Aspirin (ASPIRIN) 81 MG DAILY PO Amiodarone HCl (CORDARONE) 200 MG TID PO Docusate Sodium (COLACE) 100 MG BID PO Melatonin (Melatonin) 6 MG BEDTIME PO Metoprolol Tartrate (LOPRESSOR) 12.5 MG Q12HR PO Sennosides (Senna Lax 8.6 MG TABLET) 17.2 MG BED TIME PO Calcium Chloride (CALCIUM CHLORIDE) 1 GM ASDIR P RN IV Dextrose/Water (DEXTROSE 10% IN WATER) 125 ML DIR PRN IV (CKD) Dextrose/Water (DEXTROSE 10% IN WATER) 250 ML DIR PRN IV (CKD) Epinephrine (ADRENALIN CHLORIDE) 4 MG ASDIR IV Dextrose/Water (DEXTROSE 5% WATER) 246 ML Glucagon (GLUCAGON) 1 MG ASDIR PRN IM Magnesium Sulfate (MAGNESIUM SULFATE 4GM/SWFI 10 0ML) 100 ML ASDIR PRN IV Magnesium Sulfate (MAGNESIUM SULFATE 2GM/SWFI 50 ML) 50 ML ASDIR PRN IV Magnesium Sulfate/Dextrose (MAGNESIUM SULFATE 1G M/D5W 100ML) 100 ML ASDIR PRN IV Nitroglycerin/Dextrose (NITROGLYCERIN 50,000MCG/ D5W 250ML) 250 ML ASDIR IV Norepinephrine Bitartrate (NOREPINEPHRINE 8 MG/N S 250 ML) 250 ML TITRATE IV Ondansetron HCl (ZOFRAN) 4 MG Q6H PRN PRN IV Potassium Chloride (KCL 20MEQ/SWFI 100ML) 100 ML ASDIR PRN IV Sodium Bicarbonate (SODIUM BICARBONATE) 50 MEQ A SDIR PRN IV Sodium Chloride (SODIUM CHLORIDE 0.9%) 250 ML Q2 4H IV (DC) Dietitian nutrition assessment The data set between the solid lines has been im ported from the dietitian's assessment. BMI Calculated: 30.1 Nutrition related diagnosis: Nutrition diagnosis details: Nutrition problem: Increased nutrient needs Nutrition etiology: Acute illness Nutrition signs and symptoms: HEALING NEEDS S/P SURGERY Nutrition prescription: 1. RECOMMEND CONTINUE CA RDIAC DIET. HONOR FOOD PREFERENCES APPROPRIATE WITH DIET ORDER. 2. PROVIDE GLUCERNA TID WITH MEALS. 3. HEALTHY HEART DIET EDUCATION PRIOR TO DISCHARGE. 4. MONITOR PO, WT, LABS, BM. Dietitian name: Fawn Stewart, DIET Assessment completed: 09/27/22 Physical Exam General appearance: alert, awake, oriented Head/Eyes: CHISHOLM HAIR AND ADAMES WEARING EYEGLASSE S Neck: no JVD Cardiovascular: normal heart sounds, regular rat e rhythm Respiratory: aerating well, clear to auscultatio n Abdomen: non-tender, normal bowel sounds, soft Extremities: no edema Musculoskeletal: normal inspection Neuro/RN ELIGIBILITY: no motor deficits Skin: normal color Psychiatry: normal affect, normal judgment/insig ht Results Findings/Data: Laboratory Tests 10/03 10/03 10/03 10/03 10/02 0633 0218 0218 0045 1810 Chemistry Sodium (134 - 147 mEq/L) 138 Potassium (3.4 - 5.0 mEq/L) 4.1 Chloride (100 - 108 mEq/L) 104 Carbon Dioxide (21 - 33 mEq/l) 27 Anion Gap (0 - 20) 11 BUN (7 - 18 mg/dL) 13 Creatinine (0.6 - 1.3 mg/dL) 1.0 Glomerular Filtr Rate (70 - 80) 76.1 Glucose (70 - 110 mg/dL) 163 H POC Glucose (70 - 110 MG/DL) 175 H 160 H 151 H Calcium (8.0 - 10.5 mg/dL) 9.0 Magnesium (1.80 - 2.40 mg/dL) 1.69 L Total Bilirubin (0.0 - 1.0 mg/dL) 0.80 Direct Bilirubin (0.0 - 0.30 MG/DL) 0.40 H Indirect Bilirubin (MG/DL) 0.40 AST (15 - 37 IUnit/L) 39 H ALT (30 - 65 IUnit/L) 199 H Total Alk Phosphatase (20 - 125 68 IUnit/L) Total Protein (6.4 - 8.2 g/dL) 5.9 L Albumin (3.4 - 5.0 g/dL) 3.30 L Laboratory Tests 10/03 217 Hematology WBC (4.5 - 11.0 x10 3/uL) 9.1 RBC (4.00 - 5.60 x10 6/uL) 2.62 L Hgb (12.5 - 16.9 g/dL) 8.3 L Hct (37.5 - 50.7 %) 24.7 L MCV (81.0 - 99.0 fL) 94.3 MCH (27.0 - 33.0 pg) 31.7 MCHC (33.0 - 37.0 g/dL) 33.6 RDW (11.5 - 14.5 %) 14.7 H Plt Count (150 - 400 x10 3/uL) 265 MPV (7.0 - 9.0 fL) 10.5 H Neut % (Auto) (56.0 - 77.0 %) 77.2 H Lymph % (Auto) (14.0 - 32.0 %) 11.2 L Isabella % (Auto) (4.8 - 9.0 %) 8.4 Eos % (Auto) (0.3 - 3.7 %) 1.5 Baso % (Auto) (0.0 - 2.0 %) 0.1 Neut # (Auto) (2.0 - 7.6 x10 3/uL) 7.05 Lymph # (Auto) (1.0 - 3.8 x10 3/uL) 1.02 Isabella # (Auto) (0.1 - 0.8 x10 3/uL) 0.77 Eos # (Auto) (0.0 - 0.2 x10 3/uL) 0.14 Baso # (Auto) (0.0 - 0.2 x10 3/uL) 0.01 Abs Immat Gran (auto) (0.00 - 0.03 x10 3/uL) 0. 15 H Add Manual Diff NO Immature Gran % (0.0 - 2.0 %) 1.6 Nucleated RBC % (0 - 0 %) 0.2 H Nucleated RBCs # (Man) (0.0 - 0.1 x10 3/uL) 0.0 2 Radiology data: Recent Impressions: RADIOLOGY - XR CHEST 1 V 10/04 519 Report Impression - Status: SIGNED Entered: 10/03/202216 IMPRESSION: New mild bilateral interstitial opacities, possi ilan mild volume overload. New nonspecific left retrocardiac/basi lar opacities. Impression By: [email or web address] - Greg Britton M.D. Free Text Obj Notes Free Text Obj Notes: General appearance: alert, awake, oriented Head/Eyes: atraumatic, normocephalic ENT: moist mucosal membranes, normal pharynx Neck: non-tender, supple/no meningismus, no JVD Cardiovascular: normal capillary refill, normal heart sounds, regular rate rhythm Respiratory: aerating well, clear to auscultatio n, symmetric expansion Abdomen: non-tender, normal bowel sounds, soft, no distention Extremities: no clubbing, no cyanosis, no edema Neuro/RN ELIGIBILITY: alert, oriented X 3, CNII-XII intact Skin: dry, intact Psychiatry: normal affect, normal judgment/insig ht Diagnosis, Assessment Plan Problem List/A P: 1. CAD (coronary artery disease) 2. Severe aortic stenosis 3. S/P CABG x 2 4. S/P AVR Consultants: cardiovascular surgery Free Text DxA P Notes Free text DxA P notes: NSTEMI, 3-V CAD, SEVERE , S/P CABGX2, S/P AVR, S/P LEYDI ISOLATION - CARD/CTS SEEN, PLAN PER CTS, ON CT/KING, REPEAT ECHO EF 40-45% Continue aspirin 81 mg daily Atorvastatin 80 mg at bedtime ?pneumoperitoneum? 09/29- as per CXR report. defer to critical care for further evaluation. ANEMIA OF SURGICAL BLOOD LOSS - HGB FROM 14 TO 7 .2, TX PRN Pulmonary edema due to aortic stenosis - COMPENS ATED, ECHO EF 45-50%, DD Chest x-ray with bibasilar opacities BNP elevated at 3114 Hypertension - STABLE Resume home lisinopril 10 mg p.o. daily Hydralazine 10 mg IV every 6 hours as n eeded. Blood pressure greater than 170 Type 2 diabetes mellitus - GOOD, CONT ISS, HGBA1 C 6.8%, LDL 40 Hold home metformin, empagliflozin, and semaglu tide Low-dose sliding scale insulin before meals and at bedtime Hyperlipidemia LDL 40, CONT Atorvastatin 80 mg a t bedtime DVT prophylaxis: Heparin drip, cardiology protoc ol Diet: Carbohydrate consistent CODE STATUS: DO NOT RESUSCITATE Patient reports he has an advanced directive His medical power of banking attorney is nadeem Francois t 09/29- POD #3 AVR and CABG x2 . ?pneumoperitoneuam on CXR. awaiting critical care recs. 10/01- POD 5, central line DC'd, ivf's stopped, kidney function stable, king cath remains x1 more day 10/02: Plan to transfer to CVN 1 10/03- Continue plan per cards, and CTS. Transfer to CV at 1401 RPT #:[id number] END OF REPORT 2022-10-03 13:54:00-00:00 [facility] ([facility]) Critical Care Progress Note REPORT#:[id number] REPORT STATUS: Signed DATE:10/03/22 TIME: 1354 PATIENT: MONICA BECK UNIT #: [id number] ROOM/BED: [place] [id number] : 42 AGE: 82 SEX: M ATTEND: Nicolasa Maria MD ADM AUTHOR: Milton Mast MD * ALL edits or amendments must be made on the [employer]/computer document * Subjective Chief complaint: CABG HPI: 82-year-old male with history of HTN, HL, NIDDM, aortic stenosis and restless leg syndrome, who presented to outside hospital with chest pain and found to have non-STEMI. Cardiac catheter revealed severe multivessel coronary artery disease. Patient underwent A VR (25 INSPIRIS), CABG X2 (NAIR-LAD, SVG-OM), ALAA, EVH (RGSV) and posterior per icardiotomy today at 09/26/2022. EF was 30-35% and it slightly improved postop 40% on ANKUR. Crystalloid 1.8 L, albumin 150, urine output 600, Cell Saver 250. Surgery went well so patient was extubated and transferred to CVICU postop in a stable surgical condition. He was weaned off all vasopressors coming off pump and is currently on nitroglycerin and insulin drip. Comments: Out of bed, walking Went to into A-fib with RVR Converted with amiodarone drip Tolerating oral diet, had BM Objective General VS/I O Last Documented: Result Date Time Pulse Ox 100 10/03 0820 FiO2 21 / 0820 O2 Delivery Room air 10/03 0820 B/P 134/60 10/03 0800 B/P Mean 87 10/03 0800 Pulse 71 10/03 0800 Resp 23 10/03 0800 O2 Flow Rate 1 10/03 0421 Temp 97.4 10/02 1200 24 hour I O ending at 0700: 10/03 0700 10/02 1900 Intake Total 240 720 Output Total 1340 1275 Balance -1100 -555 Intake, Oral 240 240 Intake, Oral 480 Supplement Number 1 Bowel Movements Number Voids 7 Output, Urine 1340 1275 Patient 79.6 kg Weight Weight Standing scale Measurement Method PATIENT WEIGHT: Weight (lb): 175 Weight (oz): 7.81 Weight (kg): 79.600 Medications: Active Meds + DC'd Last 24 Hrs Sodium Chloride (SODIUM CHLORIDE) 10 ML ASDIR IV Fentanyl Citrate (SUBLIMAZE) 50 MCG Q6H PRN PRN IV Insulin Glargine (Semglee) 15 UNIT BID SUBQ Insulin Human Lispro (HUMALOG) 0 Q6HR SUBQ Ipratropium [place] (ATROVENT) 500 MCG RTQ2H PRN PRN INH Cyanocobalamin (Vitamin B-12 500 mcg tab) 500 MC G DAILY PO Ferrous Sulfate (FERROUS SULFATE) 325 MG DAILY P O Bisacodyl (DULCOLAX) 10 MG ONCE PRN RECTAL Amiodarone HCl (AMIODARONE HCL) 450 MG ASDIR IV (CKD) Dextrose/Water (D5%W NON-DEHP) 250 ML Mupirocin (BACTROBAN 2% 22 GM OINTMENT) 1 APPLIC BID NASAL (DC) Dopamine HCl/Dextrose (DOPamine 400MG/D5W 250ML) 250 ML ASDIR IV Clopidogrel Bisulfate (Plavix) 75 MG DAILY PO Polyethylene Glycol (MIRALAX) 17 GM DAILY PO Pantoprazole (PROTONIX) 40 MG DAILY@0600 PO Aspirin (ASPIRIN) 81 MG DAILY PO Amiodarone HCl (CORDARONE) 200 MG TID PO Docusate Sodium (COLACE) 100 MG BID PO Melatonin (Melatonin) 6 MG BEDTIME PO Metoprolol Tartrate (LOPRESSOR) 12.5 MG Q12HR PO Sennosides (Senna Lax 8.6 MG TABLET) 17.2 MG BED TIME PO Calcium Chloride (CALCIUM CHLORIDE) 1 GM ASDIR P RN IV Dextrose/Water (DEXTROSE 10% IN WATER) 125 ML DIR PRN IV (CKD) Dextrose/Water (DEXTROSE 10% IN WATER) 250 ML DIR PRN IV (CKD) Epinephrine (ADRENALIN CHLORIDE) 4 MG ASDIR IV Dextrose/Water (DEXTROSE 5% WATER) 246 ML Glucagon (GLUCAGON) 1 MG ASDIR PRN IM Magnesium Sulfate (MAGNESIUM SULFATE 4GM/SWFI 10 0ML) 100 ML ASDIR PRN IV Magnesium Sulfate (MAGNESIUM SULFATE 2GM/SWFI 50 ML) 50 ML ASDIR PRN IV Magnesium Sulfate/Dextrose (MAGNESIUM SULFATE 1G M/D5W 100ML) 100 ML ASDIR PRN IV Nitroglycerin/Dextrose (NITROGLYCERIN 50,000MCG/ D5W 250ML) 250 ML ASDIR IV Norepinephrine Bitartrate (NOREPINEPHRINE 8 MG/N S 250 ML) 250 ML TITRATE IV Ondansetron HCl (ZOFRAN) 4 MG Q6H PRN PRN IV Potassium Chloride (KCL 20MEQ/SWFI 100ML) 100 ML ASDIR PRN IV Sodium Bicarbonate (SODIUM BICARBONATE) 50 MEQ A SDIR PRN IV Sodium Chloride (SODIUM CHLORIDE 0.9%) 250 ML Q2 4H IV (DC) Results Findings/data: Laboratory Tests 10/03 10/03 10/03 10/03 10/02 0633 0218 0218 0045 1810 Chemistry Sodium (134 - 147 mEq/L) 138 Potassium (3.4 - 5.0 mEq/L) 4.1 Chloride (100 - 108 mEq/L) 104 Carbon Dioxide (21 - 33 mEq/l) 27 Anion Gap (0 - 20) 11 BUN (7 - 18 mg/dL) 13 Creatinine (0.6 - 1.3 mg/dL) 1.0 Glomerular Filtr Rate (70 - 80) 76.1 Glucose (70 - 110 mg/dL) 163 H POC Glucose (70 - 110 MG/DL) 175 H 160 H 151 H Calcium (8.0 - 10.5 mg/dL) 9.0 Magnesium (1.80 - 2.40 mg/dL) 1.69 L Total Bilirubin (0.0 - 1.0 mg/dL) 0.80 Direct Bilirubin (0.0 - 0.30 MG/DL) 0.40 H Indirect Bilirubin (MG/DL) 0.40 AST (15 - 37 IUnit/L) 39 H ALT (30 - 65 IUnit/L) 199 H Total Alk Phosphatase (20 - 125 IUnit/L) 68 Total Protein (6.4 - 8.2 g/dL) 5.9 L Albumin (3.4 - 5.0 g/dL) 3.30 L Laboratory Tests 10/03 217 Hematology WBC (4.5 - 11.0 x10 3/uL) 9.1 RBC (4.00 - 5.60 x10 6/uL) 2.62 L Hgb (12.5 - 16.9 g/dL) 8.3 L Hct (37.5 - 50.7 %) 24.7 L MCV (81.0 - 99.0 fL) 94.3 MCH (27.0 - 33.0 pg) 31.7 MCHC (33.0 - 37.0 g/dL) 33.6 RDW (11.5 - 14.5 %) 14.7 H Plt Count (150 - 400 x10 3/uL) 265 MPV (7.0 - 9.0 fL) 10.5 H Neut % (Auto) (56.0 - 77.0 %) 77.2 H Lymph % (Auto) (14.0 - 32.0 %) 11.2 L Isabella % (Auto) (4.8 - 9.0 %) 8.4 Eos % (Auto) (0.3 - 3.7 %) 1.5 Baso % (Auto) (0.0 - 2.0 %) 0.1 Neut # (Auto) (2.0 - 7.6 x10 3/uL) 7.05 Lymph # (Auto) (1.0 - 3.8 x10 3/uL) 1.02 Isabella # (Auto) (0.1 - 0.8 x10 3/uL) 0.77 Eos # (Auto) (0.0 - 0.2 x10 3/uL) 0.14 Baso # (Auto) (0.0 - 0.2 x10 3/uL) 0.01 Abs Immat Gran (auto) (0.00 - 0.03 x10 3/uL) 0. 15 H Add Manual Diff NO Immature Gran % (0.0 - 2.0 %) 1.6 Nucleated RBC % (0 - 0 %) 0.2 H Nucleated RBCs # (Man) (0.0 - 0.1 x10 3/uL) 0. 02 Laboratory Tests 10/03/22217: [Embedded Image Not Available] 10/03/22217: [Embedded Image Not Available] Radiology data Recent Impressions: RADIOLOGY - XR CHEST 1 V 10/03 0520 Report Impression - Status: SIGNED Entered: 10/03/2022 0716 IMPRESSION: New mild bilateral interstitial opacities, possi ilan mild volume overload. New nonspecific left retrocardiac/basi lar opacities. Impression By: [email or web address] - Greg Britton M.D. Free Text Obj Notes Free Text Obj Notes: General appearance: Elderly male in no acute dis tress, interactive and conversational HEENT: atraumatic, normocephalic, moist mucosal membranes Neck: full range of motion, supple/no meningismu s Cardiovascular: S1-S2 regular rate and rhythm Respiratory: symmetric expansion, no acute respi ratory distress Abdomen: soft, non-tender, no distention, no gua rding Extremities: pedal pulses palpable, moves all, n o clubbing, no cyanosis, no edema Musculoskeletal: normal inspection, no muscle sp asm Neuro/RN ELIGIBILITY: Alert and oriented x3, CNII-XII gross ly intact, no motor deficits Skin: Warm to touch. Dry, intact and clean surge ry dressing Diagnosis, Assessment Plan Problem list/A P: 1. CAD (coronary artery disease) 2. S/P CABG x 2 3. S/P AVR 4. Severe aortic stenosis Free text A P: 82-year-old male with history of HTN, HL, NIDDM, aortic stenosis and restless leg syndrome, who presented to outside hospital with chest pain and found to have non-STEMI. Cardiac catheter revealed severe multivessel coronary artery disease. Patient underwent A VR (25 INSPIRIS), CABG X2 (NAIR-LAD, SVG-OM), ALAA, EVH (RGSV) and posterior per icardiotomy today at 09/26/2022. EF was 30-35% and it slightly improved postop 40% on ANKUR. Crystalloid 1.8 L, albumin 150, urine output 600, Cell Saver 250. Surgery went well so patient was extubated and transferred to CVICU postop in a stable surgical condition. He was weaned off all vasopressors coming off pump and is currently on nitroglycerin and insulin drip. Neuro: Appears intact, multimodal pain control Respiratory: Sats well, wean O2, encourage I-S, ABG and CXR reviewed Cardiovascular: HD stable of f vasopressors, wean nitroglycerin drip, keep CTs to suction Renal: strict I/Os, monitor Cr and electrolytes, lactic acidosis, judicious resuscitation GI: bedside swallow then oral diet, bowel regime n, monitor LFTs, replete hypokalemia ID: reactive leukocytosis, trend WBC, co ntinue periop antibiotics per protocol Hem: acute postop anemia, co agulopathy and thrombocytopenia, monitor Hgb and CTs output, transfuse blood products as needed Endo: Blood glucose control with insulin gtt per protocol Misc: PT and OT consult, DVT and GI ppx with DAP T and PPI 09/27 Remains neuro intact, continue multimodal pain c ontrol Sats well, continue to wean O2, encourage I-S, A BG and CXR reviewed HD unstable back on vasopressors, attempt to wea n, check CVP, bolus as needed Cr stable, good urine output, lactic acidosis cl eared s/p resuscitation, repleted hypocalcemia Oral diet as tolerated, christopher l regimen, monitor gastric distention on x-ray, mild transaminitis No fevers or leukocytosis, given periop antibiot ics Hgb appears stable, no evidence of active bleed, monitor CTs output Blood glucose control with insulin drip, transit ion to sliding scale insulin Encourage PT/OT and out of bed as tolerated DVT and GI prophylaxis with DAPT and PPI 09/28 Remains neuro intact, continue multimodal pain c ontrol Sats well, continue to wean O2, encourage I-S, C XR reviewed HD stable weaned off vasopressors, low CVP s/p r esuscitation, amiodarone per protocol for A-fib Mild JOSE ARMANDO with uptrending Cr, given IVF and Lasix, monitor UOP and electrolytes, obtain urine lytes Oral diet as tolerated, bowel regimen, resolved transaminitis No fevers or leukocytosis, no ID issues at this time Acute postop anemia and thro mbocytopenia, hgb and plt appear stable, no evidence of active bleed, monitor CTs output, remove per CT surgery Blood glucose control with insulin drip, plan to transition to sliding scale insulin Encourage PT/OT and out of bed as tolerated DVT and GI prophylaxis with DAPT and PPI 09/29 Remains neuro intact, continue multimodal pain c ontrol Sats well on room air, continue I-S, CXR reviewe d HD stable off vasopressors s/p resuscitation, A- fib converted to SR, continue amiodarone JOSE ARMANDO with uptrending Cr, given fluids, hold off o n diuresis, monitor UOP and electrolytes Tolerating oral diet, aggressive bowel r egimen, has pneumoperitoneum on x-ray, serial abdominal exam, no further imaging or int ervention per CT surgery, transaminitis, trend LFTs No fevers or leukocytosis, no ID issues at this time Hgb and plt remain stable, no evidence of active bleed, remove chest tubes Blood glucose control with insulin drip, transitioned to sliding scale insulin Encourage PT/OT and out of bed as tolerated, dis po plan likely home DVT and GI prophylaxis with DAPT and PPI 09/30 Remains neuro intact, continue multimodal pain c ontrol Sats well on room air, continue I-S, CXR reviewe d Remains HD stable and in sinus rhythm, continue BB and oral amiodarone JOSE ARMANDO, Cr trending down after IV hydration per jennifer al Tolerating oral diet, aggressive bowel regimen, transaminitis, trend LFTs No fevers or leukocytosis, no ID issues at this time Hgb and plt remain stable, no evidence of active bleed, remove CTs today Blood glucose control, start Lantus, sliding sca le insulin Encourage PT/OT and out of bed as tolerated, dis po plan likely home DVT and GI prophylaxis with DAPT and PPI 10/01 Remains neuro intact, pain appears well controll ed with multimodal approach Sats well on room air, continue I-S, CXR reviewe d Remains HD stable and in sinus rhythm, continue BB and oral amiodarone, off statin JOSE ARMANDO resolved s/p IV hydration, may need diuresis , replete hypomagnesemia Tolerating oral diet, aggres sive bowel regimen, transaminitis with downtrending LFTs Remains afebrile, no leukocytosis, no ID issues at this time Hgb remains stable, thromboc ytopenia resolved, no evidence of active bleed, CTs removed Blood glucose uncontrolled, increase Lantus, con tinue sliding scale insulin Tolerating PT/OT and out of bed, not deniz lified for IPR, may need SNF if unable to go home DVT and GI prophylaxis with DAPT and PPI 10/02 On room air Inhaled bronchodilators as needed Incentive spirometry Judicious pain control, fentanyl as needed. Avoi d acetaminophen products. Amiodarone bolus and drip Aspirin and Plavix Amiodarone p.o. Atorvastatin Metoprolol Monitor kidney function and trend creatinine Monitor and replete electrolytes Strict I O's Cardiac diet with bowel regimen Blood glucose control, sliding scale insulin VTE prophylaxis, DOAC's Stress ulcer prophylaxis, PPI Discussed with ICU team and CV team Critical care time 37 minutes 10/03 Remains neuro intact, pain appears to be well co ntrolled Sats well on room air, continue I-S, CXR reviewe d Remains HD stable, A-fib converted to sinus rhyt hm with amiodarone drip JOSE ARMANDO resolved, Cr stable, continue diuresis as ne eded, replete hypomagnesemia Tolerating oral diet, had janine wel movement,, transaminitis with downtrending LFTs Remains afebrile, no leukocytosis, no ID issues at this time Hgb remains stable, no evidence of active bleedi ng Blood glucose controlled with Lantus and sliding scale insulin Tolerating PT/OT and out of bed, dispo plan like ly home DVT and GI prophylaxis with DAPT and PPI Consultants: cardiovascular surgery Plan discussed with: patient, family, co nsultants, nurse, interdisc care team, pharmacy/pharmacist Critical care time: Minutes: 35 Electronically Signed by Milton Mast MD on 09/19 10/11 at 1420 RPT #:[id number] END OF REPORT 2022-10-03 10:51:00-00:00 [facility] ([facility] Nephrology Progress Note REPORT#:[id number] REPORT STATUS: Signed DATE:10/03/22 TIME: 1051 PATIENT: MONICA BECK UNIT #: [id number] ROOM/BED: [place] [id number] : 42 AGE: 82 SEX: M ATTEND: Nicolasa Maria MD ADM AUTHOR: Nila Cheung MD * ALL edits or amendments must be made on the el [employer]/computer document * Subjective Chief complaint: follow up of ARF Comments: Doing well, on room air Objective General VS/I O: Vital Signs: Date Time Temp Pulse Resp B/P B/P Pulse O2 O2 F low FiO2 Mean Ox Delivery Rate 10/03 0820 100 Room air 21 10/03 0800 71 23 134/60 87 100 10/03 0645 68 27 94 10/03 0600 67 22 140/62 89 93 10/03 0500 65 18 156/65 93 94 10/03 0421 100 Nasal 1 cannula 10/03 0400 64 21 150/66 95 99 10/03 0300 74 136/63 91 94 10/03 0200 62 20 143/64 92 100 10/03 0100 62 21 132/63 91 98 10/03 0000 66 20 151/70 100 05 2314 72 22 170/72 104 97 10/02 2201 79 178/78 112 98 10/02 2100 68 22 166/72 104 99 10/02 2012 100 Room air 21 10/02 2001 65 140/66 95 97 10/02 1901 66 154/69 99 99 10/02 1708 25 05 1700 68 143/67 97 100 10/02 1632 97 Room air 21 10/02 1600 67 135/64 92 98 10/02 1500 64 25 139/64 92 100 10/02 1400 66 22 123/60 87 100 10/02 1300 75 135/100 115 98 05/ 1200 97.4 10/02 1200 72 25 139/61 88 98 10/02 1100 106 19 106/62 77 97 24 hour I O ending at 0700: 10/03 0700 10/02 1900 Intake Total 240 720 Output Total 1340 1275 Balance -1100 -555 Intake, Oral 240 240 Intake, Oral 480 Supplement Number 1 Bowel Movements Number Voids 7 Output, Urine 1340 1275 Patient 79.6 kg Weight Weight Standing scale Measurement Method PATIENT WEIGHT: Weight (lb): 175 Weight (oz): 7.81 Weight (kg): 79.600 Medications Active Meds + DC'd Last 24 Hrs Albumin Human (ALBUMINAR 5% 12.5GM/250ML) 250 ML ONCE ONE IV (DC) Amiodarone HCl (NEXTERONE 150MG/D5W 100ML) 150 M G ONCE ONE IV (DC) Fentanyl Citrate (SUBLIMAZE) 50 MCG Q6H PRN PRN IV Insulin Glargine (Semglee) 15 UNIT BID SUBQ Insulin Human Lispro (HUMALOG) 0 Q6HR SUBQ Ipratropium [place] (ATROVENT) 500 MCG RTQ2H PRN PRN INH Cyanocobalamin (Vitamin B-12 500 mcg tab) 500 MC G DAILY PO Ferrous Sulfate (FERROUS SULFATE) 325 MG DAILY P O Bisacodyl (DULCOLAX) 10 MG ONCE PRN RECTAL Amiodarone HCl (AMIODARONE HCL) 450 MG ASDIR IV (CKD) Dextrose/Water (D5%W NON-DEHP) 250 ML Mupirocin (BACTROBAN 2% 22 GM OINTMENT) 1 APPLIC BID NASAL (DC) Dopamine HCl/Dextrose (DOPamine 400MG/D5W 250ML) 250 ML ASDIR IV Clopidogrel Bisulfate (Plavix) 75 MG DAILY PO Polyethylene Glycol (MIRALAX) 17 GM DAILY PO Pantoprazole (PROTONIX) 40 MG DAILY@0600 PO Aspirin (ASPIRIN) 81 MG DAILY PO Amiodarone HCl (CORDARONE) 200 MG TID PO Docusate Sodium (COLACE) 100 MG BID PO Melatonin (Melatonin) 6 MG BEDTIME PO Metoprolol Tartrate (LOPRESSOR) 12.5 MG Q12HR PO Sennosides (Senna Lax 8.6 MG TABLET) 17.2 MG BED TIME PO Calcium Chloride (CALCIUM CHLORIDE) 1 GM ASDIR P RN IV Dextrose/Water (DEXTROSE 10% IN WATER) 125 ML DIR PRN IV (CKD) Dextrose/Water (DEXTROSE 10% IN WATER) 250 ML DIR PRN IV (CKD) Epinephrine (ADRENALIN CHLORIDE) 4 MG ASDIR IV Dextrose/Water (DEXTROSE 5% WATER) 246 ML Glucagon (GLUCAGON) 1 MG ASDIR PRN IM Magnesium Sulfate (MAGNESIUM SULFATE 4GM/SWFI 10 0ML) 100 ML ASDIR PRN IV Magnesium Sulfate (MAGNESIUM SULFATE 2GM/SWFI 50 ML) 50 ML ASDIR PRN IV Magnesium Sulfate/Dextrose (MAGNESIUM SULFATE 1G M/D5W 100ML) 100 ML ASDIR PRN IV Nitroglycerin/Dextrose (NITROGLYCERIN 50,000MCG/ D5W 250ML) 250 ML ASDIR IV Norepinephrine Bitartrate (NOREPINEPHRINE 8 MG/N S 250 ML) 250 ML TITRATE IV Ondansetron HCl (ZOFRAN) 4 MG Q6H PRN PRN IV Potassium Chloride (KCL 20MEQ/SWFI 100ML) 100 ML ASDIR PRN IV Sodium Bicarbonate (SODIUM BICARBONATE) 50 MEQ A SDIR PRN IV Sodium Chloride (SODIUM CHLORIDE 0.9%) 250 ML Q2 4H IV (DC) Physical Exam General appearance: alert, awake Head/eyes: atraumatic, normocephalic, PERRLA ENT: moist mucous membranes Neck: no JVD, no lymphadenopathy Cardiovascular: normal heart sounds, regular rat e and rhythm, no rub Respiratory: aerating well, clear to auscultatio n, no distress Abdomen: non-tender, normal bowel sounds, soft, no rebound Genitourinary: no bladder distention, no flank p ain Extremities: no edema, no gangrene Neuro/RN ELIGIBILITY: alert, oriented X 3, CN II-XII intact , normal speech Results Findings/Data: Laboratory Tests 10/03 10/03 10/03 10/03 10/02 0633 0218 0218 0045 1810 Chemistry Sodium (134 - 147 mEq/L) 138 Potassium (3.4 - 5.0 mEq/L) 4.1 Chloride (100 - 108 mEq/L) 104 Carbon Dioxide (21 - 33 mEq/l) 27 Anion Gap (0 - 20) 11 BUN (7 - 18 mg/dL) 13 Creatinine (0.6 - 1.3 mg/dL) 1.0 Glomerular Filtr Rate (70 - 80) 76.1 Glucose (70 - 110 mg/dL) 163 H POC Glucose (70 - 110 MG/DL) 175 H 160 H 151 H Calcium (8.0 - 10.5 mg/dL) 9.0 Magnesium (1.80 - 2.40 mg/dL) 1.69 L Total Bilirubin (0.0 - 1.0 mg/dL) 0.80 Direct Bilirubin (0.0 - 0.30 MG/DL) 0.40 H Indirect Bilirubin (MG/DL) 0.40 AST (15 - 37 IUnit/L) 39 H ALT (30 - 65 IUnit/L) 199 H Total Alk Phosphatase (20 - 125 68 IUnit/L) Total Protein (6.4 - 8.2 g/dL) 5.9 L Albumin (3.4 - 5.0 g/dL) 3.30 L 10/02 1151 Chemistry POC Glucose (70 - 110 MG/DL) 293 H Laboratory Tests 10/03 0218 Hematology WBC (4.5 - 11.0 x10 3/uL) 9.1 RBC (4.00 - 5.60 x10 6/uL) 2.62 L Hgb (12.5 - 16.9 g/dL) 8.3 L Hct (37.5 - 50.7 %) 24.7 L MCV (81.0 - 99.0 fL) 94.3 MCH (27.0 - 33.0 pg) 31.7 MCHC (33.0 - 37.0 g/dL) 33.6 RDW (11.5 - 14.5 %) 14.7 H Plt Count (150 - 400 x10 3/uL) 265 MPV (7.0 - 9.0 fL) 10.5 H Neut % (Auto) (56.0 - 77.0 %) 77.2 H Lymph % (Auto) (14.0 - 32.0 %) 11.2 L Isabella % (Auto) (4.8 - 9.0 %) 8.4 Eos % (Auto) (0.3 - 3.7 %) 1.5 Baso % (Auto) (0.0 - 2.0 %) 0.1 Neut # (Auto) (2.0 - 7.6 x10 3/uL) 7.05 Lymph # (Auto) (1.0 - 3.8 x10 3/uL) 1.02 Isabella # (Auto) (0.1 - 0.8 x10 3/uL) 0.77 Eos # (Auto) (0.0 - 0.2 x10 3/uL) 0.14 Baso # (Auto) (0.0 - 0.2 x10 3/uL) 0.01 Abs Immat Gran (auto) (0.00 - 0.03 x10 3/uL) 0. 15 H Add Manual Diff NO Immature Gran % (0.0 - 2.0 %) 1.6 Nucleated RBC % (0 - 0 %) 0.2 H Nucleated RBCs # (Man) (0.0 - 0.1 x10 3/uL) 0.0 2 Radiology data: Recent Impressions: RADIOLOGY - XR CHEST 1 V 10/04 519 Report Impression - Status: SIGNED Entered: 10/03/2022 0716 IMPRESSION: New mild bilateral interstitial opacities, possi ilan mild volume overload. New nonspecific left retrocardiac/basi lar opacities. Impression By: [email or web address] - Greg Britton M.D. Diagnosis, Assessment Plan Free Text A P: 1. JOSE ARMANDO likely prerenal insufficiency. Cr eatinine is stable at 1.5>1.3>1.1> 1.0 this morning. 2. Status post CABG and AVR CT surgery following 3. Diabetes type 2 per primary team 4. Anemia PRBC transfusion if hemoglobin less th an 7. No overt GI bleed. Echocardiogram on 09/28/2022 1. Left ventricle: Systolic function is mildly r educed. The estimated ejection fraction is 40-44%. 2. Aortic valve: There is a bioprosthetic valve. Electronically Signed by Nila Cheung MD on at 1422 RPT #:[id number] END OF REPORT 2022-10-03 10:08:00-00:00 [facility] REPORT#:[id number] REPORT STATUS: Signed DATE:10/03/22 TIME: 1008 PATIENT: MONICA BECK UNIT #: [id number] ROOM/BED: [place] [id number] : 42 AGE: 82 SEX: M ATTEND: Nicolasa Maria MD ADM AUTHOR: Geneva Silverman CNP * ALL edits or amendments must be made on the [employer]/computer document * Subjective Comments: c/o tailbone pain. Objective General VS/I O: 24 hour I O ending at 0700: 10/03 0700 10/02 1900 Intake Total 240 720 Output Total 1340 1275 Balance -1100 -555 Intake, Oral 240 240 Intake, Oral 480 Supplement Number 1 Bowel Movements Number Voids 7 Output, Urine 1340 1275 Patient 79.6 kg Weight Weight Standing scale Measurement Method Vital Signs: Date Time Temp Pulse Resp B/P B/P Pulse O2 O2 F low FiO2 Mean Ox Delivery Rate 10/03 0820 100 Room air 21 10/03 0800 71 23 134/60 87 100 10/03 0645 68 27 94 10/03 0600 67 22 140/62 89 93 10/03 0500 65 18 156/65 93 94 10/03 0421 100 Nasal 1 cannula 10/03 0400 64 21 150/66 95 99 10/03 0300 74 136/63 91 94 10/03 0200 62 20 143/64 92 100 10/03 0100 62 21 132/63 91 98 10/03 0000 66 20 151/70 100 10/02 2314 72 22 170/72 104 97 05 2201 79 178/78 112 98 10/02 2100 68 22 166/72 104 99 10/02 2013 100 Room air 21 05/ 2001 65 140/66 95 97 / 1901 66 154/69 99 99 10/02 1708 25 05/ 1700 68 143/67 97 100 10/02 1632 97 Room air 21 10/02 1600 67 135/64 92 98 / 1500 64 25 139/64 92 100 05/ 1400 66 22 123/60 87 100 10/02 1300 75 135/100 115 98 10/02 1200 36.3 10/02 1200 72 25 139/61 88 98 10/02 1100 106 19 106/62 77 97 PATIENT WEIGHT: Weight (lb): 175 Weight (oz): 7.81 Weight (kg): 79.600 Medications: Active Meds + DC'd Last 24 Hrs Albumin Human (ALBUMINAR 5% 12.5GM/250ML) 250 ML ONCE ONE IV (DC) Amiodarone HCl (NEXTERONE 150MG/D5W 100ML) 150 M G ONCE ONE IV (DC) Fentanyl Citrate (SUBLIMAZE) 50 MCG Q6H PRN PRN IV Insulin Glargine (Semglee) 15 UNIT BID SUBQ Insulin Human Lispro (HUMALOG) 0 Q6HR SUBQ Ipratropium [place] (ATROVENT) 500 MCG RTQ2H PRN PRN INH Cyanocobalamin (Vitamin B-12 500 mcg tab) 500 MC G DAILY PO Ferrous Sulfate (FERROUS SULFATE) 325 MG DAILY P O Bisacodyl (DULCOLAX) 10 MG ONCE PRN RECTAL Amiodarone HCl (AMIODARONE HCL) 450 MG ASDIR IV (CKD) Dextrose/Water (D5%W NON-DEHP) 250 ML Mupirocin (BACTROBAN 2% 22 GM OINTMENT) 1 APPLIC BID NASAL (DC) Dopamine HCl/Dextrose (DOPamine 400MG/D5W 250ML) 250 ML ASDIR IV Clopidogrel Bisulfate (Plavix) 75 MG DAILY PO Polyethylene Glycol (MIRALAX) 17 GM DAILY PO Pantoprazole (PROTONIX) 40 MG DAILY@0600 PO Aspirin (ASPIRIN) 81 MG DAILY PO Amiodarone HCl (CORDARONE) 200 MG TID PO Docusate Sodium (COLACE) 100 MG BID PO Melatonin (Melatonin) 6 MG BEDTIME PO Metoprolol Tartrate (LOPRESSOR) 12.5 MG Q12HR PO Sennosides (Senna Lax 8.6 MG TABLET) 17.2 MG BED TIME PO Calcium Chloride (CALCIUM CHLORIDE) 1 GM ASDIR P RN IV Dextrose/Water (DEXTROSE 10% IN WATER) 125 ML DIR PRN IV (CKD) Dextrose/Water (DEXTROSE 10% IN WATER) 250 ML DIR PRN IV (CKD) Epinephrine (ADRENALIN CHLORIDE) 4 MG ASDIR IV Dextrose/Water (DEXTROSE 5% WATER) 246 ML Glucagon (GLUCAGON) 1 MG ASDIR PRN IM Magnesium Sulfate (MAGNESIUM SULFATE 4GM/SWFI 10 0ML) 100 ML ASDIR PRN IV Magnesium Sulfate (MAGNESIUM SULFATE 2GM/SWFI 50 ML) 50 ML ASDIR PRN IV Magnesium Sulfate/Dextrose (MAGNESIUM SULFATE 1G M/D5W 100ML) 100 ML ASDIR PRN IV Nitroglycerin/Dextrose (NITROGLYCERIN 50,000MCG/ D5W 250ML) 250 ML ASDIR IV Norepinephrine Bitartrate (NOREPINEPHRINE 8 MG/N S 250 ML) 250 ML TITRATE IV Ondansetron HCl (ZOFRAN) 4 MG Q6H PRN PRN IV Potassium Chloride (KCL 20MEQ/SWFI 100ML) 100 ML ASDIR PRN IV Sodium Bicarbonate (SODIUM BICARBONATE) 50 MEQ A SDIR PRN IV Sodium Chloride (SODIUM CHLORIDE 0.9%) 250 ML Q2 4H IV (DC) Status post: CABG x 2. Physical Exam General appearance: alert, awake, oriented Head/Eyes: atraumatic, clear cornea ENT: normal nose Neck: non-tender, no JVD Cardiovascular: CV assessment: regular rate and rhythm Respiratory: decreased breath sounds, no distres s Abdomen: soft, non-tender, normal bowel sounds, no distention Genitourinary: no flank pain, no urinary cathete r Upper extremity: UE assessment: normal temperature Lower extremity: LE assessment: edema (trace) Musculoskeletal: normal inspection Neuro/RN ELIGIBILITY: alert, oriented X 3, normal speech Skin: dry Psychiatry: normal affect, normal mood Results Findings/Data: Laboratory Tests 10/03 10/03 10/03 10/03 10/02 0633 0218 0218 0045 1810 Chemistry Sodium (134 - 147 mEq/L) 138 Potassium (3.4 - 5.0 mEq/L) 4.1 Chloride (100 - 108 mEq/L) 104 Carbon Dioxide (21 - 33 mEq/l) 27 Anion Gap (0 - 20) 11 BUN (7 - 18 mg/dL) 13 Creatinine (0.6 - 1.3 mg/dL) 1.0 Glomerular Filtr Rate (70 - 80) 76.1 Glucose (70 - 110 mg/dL) 163 H POC Glucose (70 - 110 MG/DL) 175 H 160 H 151 H Calcium (8.0 - 10.5 mg/dL) 9.0 Magnesium (1.80 - 2.40 mg/dL) 1.69 L Total Bilirubin (0.0 - 1.0 mg/dL) 0.80 Direct Bilirubin (0.0 - 0.30 MG/DL) 0.40 H Indirect Bilirubin (MG/DL) 0.40 AST (15 - 37 IUnit/L) 39 H ALT (30 - 65 IUnit/L) 199 H Total Alk Phosphatase (20 - 125 IUnit/L) 68 Total Protein (6.4 - 8.2 g/dL) 5.9 L Albumin (3.4 - 5.0 g/dL) 3.30 L 10/02 1151 Chemistry POC Glucose (70 - 110 MG/DL) 293 H Laboratory Tests 10/038 Hematology WBC (4.5 - 11.0 x10 3/uL) 9.1 RBC (4.00 - 5.60 x10 6/uL) 2.62 L Hgb (12.5 - 16.9 g/dL) 8.3 L Hct (37.5 - 50.7 %) 24.7 L MCV (81.0 - 99.0 fL) 94.3 MCH (27.0 - 33.0 pg) 31.7 MCHC (33.0 - 37.0 g/dL) 33.6 RDW (11.5 - 14.5 %) 14.7 H Plt Count (150 - 400 x10 3/uL) 265 MPV (7.0 - 9.0 fL) 10.5 H Neut % (Auto) (56.0 - 77.0 %) 77.2 H Lymph % (Auto) (14.0 - 32.0 %) 11.2 L Isabella % (Auto) (4.8 - 9.0 %) 8.4 Eos % (Auto) (0.3 - 3.7 %) 1.5 Baso % (Auto) (0.0 - 2.0 %) 0.1 Neut # (Auto) (2.0 - 7.6 x10 3/uL) 7.05 Lymph # (Auto) (1.0 - 3.8 x10 3/uL) 1.02 Isabella # (Auto) (0.1 - 0.8 x10 3/uL) 0.77 Eos # (Auto) (0.0 - 0.2 x10 3/uL) 0.14 Baso # (Auto) (0.0 - 0.2 x10 3/uL) 0.01 Abs Immat Gran (auto) (0.00 - 0.03 x10 3/uL) 0. 15 H Add Manual Diff NO Immature Gran % (0.0 - 2.0 %) 1.6 Nucleated RBC % (0 - 0 %) 0.2 H Nucleated RBCs # (Man) (0.0 - 0.1 x10 3/uL) 0.0 2 Laboratory Tests 10/03 0218 Chemistry Magnesium (1.80 - 2.40 mg/dL) 1.69 L Radiology data: Recent Impressions: RADIOLOGY - XR CHEST 1 V 10/03 05 Report Impression - Status: SIGNED Entered: 10/03/2022 0716 IMPRESSION: New mild bilateral interstitial opacities, possi ilan mild volume overload. New nonspecific left retrocardiac/basi lar opacities. Impression By: [email or web address] - Greg Britton M.D. Results: labs reviewed, vital signs reviewed, [facility] personally rev'd Telemetry Interpretation: sinus rhythm Diagnosis, Assessment Plan Plan discussed with: patient, spouse/partner, nu rse Free Text DxA P Notes Free Text DxA P Notes: 82 YO male with MHx of DM, HLD, . He presented to [facility] with CP, found to have NSTEMI. LHC ensued that showed sev ere multivessel CAD. He is transferred to us and underwent CABG and AVR on 09/26/22. 1. Multivessel CAD S/p CABG x2 (NAIR to LAD and SVG to OM), PADILLA, kirby nd SAVR on DAPT, BB, statin hemodynamics stable post-op care per CTS negative fluid balance 2. s/p SAVR continue DAPT 3. Hypertension BP marginal this am - likely d/t rhythm change. continue BB 4. Diabetes mellitus per critical care 5. ELevated LFT. AST/ALT trending down. 6. Report of post-op afib - now in sinus EKG apper to be accelerated Junctional tachycard ia on amiodarone gtt per CTS at 1121 Electronically Signed by Jakob Pa MD on at 2020 RPT #:[id number] END OF REPORT 2022-10-03 09:16:00-00:00 [facility] ([facility]) Adult General Consultation REPORT#:[id number] REPORT STATUS: Signed DATE:10/03/22 TIME: 915 PATIENT: MONICA BECK UNIT #: [id number] ROOM/BED: [place] [address] : 42 AGE: 82 SEX: M ATTEND: Nicolasa Maria MD ADM AUTHOR: Jacinto Wisdom * ALL edits or amendments must be made on the [employer]/computer document * History of Present Illness Reason for consult: PMR consult HPI: Mr Beck a very pleasant 82-year-old male with past medical history of diabetes, hyperlipidemia, restless leg syndrome aortic valve stenosis who presented to [facility] complaining of substernal chest pain across the anterior chest positive for n ausea and diaphoresis. CT chest showed small to moderate bilateral pleural effusions, ascending aorta measuring 4.2 cm. Cardiac enzymes elevated pat ient deemed non-STEMI. He was taken to the [facility] coronary angiogram revealed severe multivessel coronary artery disease. Patient started on heparin drip and transferred to [facility]. Patient taken to surgery and underwent AVR and CABG x2 with poste rior pericardiectomy on 09/26. Currently patient is still in CVICU. He had post operative anemia requiring transfusion. We have been asked to see patient i n consultation for physical medicine and rehabilitation evaluation History - Adult longitudinal Past medical history: Denies: Atrial fibrillation, Congestive heart fa ilure. Additional medical history: 1. Hypertension 2. Hyperlipidemia 3. Type 2 diabetes mellitus 4. Restless leg syndrome 5. Aortic stenosis Additional surgical history: 1. Cholecystectomy 2. Varicose veins Additional family history: Reviewed and noncontributory Alcohol use: Denies EtOH use Drug use: Denies recreational drugs Smoking status for patients 13 years old or olde r: Never Smoker Medications: Home Medications: Medication Dose/Rte/Freq Days Qty Entered Last Max Daily Dose Reviewed metFORMIN (GLUCOPHAGE) 500 MG PO BID 09/25/22 Strength: 500 MG TAB 1519 LISINOPRIL (ZESTRIL) 10 MG PO DAILY 09/25/22 Strength: 10 MG TAB 1519 EMPAGLIFLOZIN 25 MG PO DAILY 09/25/22 (JARDIANCE) 1520 Strength: 25 MG TAB ATORVASTATIN (LIPITOR) 80 MG PO DAILY 09/25/22 Strength: 80 MG TAB 1521 ZINC GLUCONATE 50 MG PO DAILY 09/25/22 Strength: 50 MG TAB 1521 Current Hospital Medications: Ahfs Category Unknown Sig/Jocy Start time Last Medication Dose Route Stop Time Status Admin Melatonin 6 MG BEDTIME 09/26 2100 AC 10/02 (Melatonin) PO 10/269 2155 Autonomic Drugs Sig/Jocy Start time Last Medication Dose Route Stop Time Status Admin Ipratropium [place] 500 MCG RTQ2H PRN PRN 09/29 1501 AC (ATROVENT) INH 10/29 1500 Dopamine HCl/Dextrose 250 ML ASDIR 09/27 1045 A C 09/27 (DOPamine 400MG/D5W IV 10/27 1044 1057 250ML) Epinephrine 4 MG ASDIR 09/26 1515 AC (ADRENALIN CHLORIDE) IV 10/26 1514 Dextrose/Water 246 ML (DEXTROSE 5% WATER) Norepinephrine 250 ML TITRATE 09/26 1515 AC Bitartrate IV 10/26 1514 (NOREPINEPHRINE 8 MG/ NS 250 ML) Blood Derivatives Sig/Jocy Start time Last Medication Dose Route Stop Time Status Admin Albumin Human 250 ML ONCE ONE 10/02 1100 DC (ALBUMINAR 5% 12.5GM/ IV 10/02 1129 1122 250ML) Blood Formation,Coagulation Sig/Jocy Start time Last Medication Dose Route Stop Time Status Admin Ferrous Sulfate 325 MG DAILY 09/29 899 AC 09/19 5 (FERROUS SULFATE) PO 10/29 0859 0809 Clopidogrel Bisulfate 75 MG DAILY 09/27 899 AC 10/03 (Plavix) PO 10/27 0859 0810 Cardiovascular Drugs Sig/Jocy Start time Last Medication Dose Route Stop Time Status Admin Amiodarone HCl 150 MG ONCE ONE 10/02 1100 DC (NEXTERONE 150MG/D5W IV 10/02 1101 1054 100ML) Amiodarone HCl 100 ML .STK-MED ONE 10/02 0950 D C (NEXTERONE 150MG/D5W IV 100ML) Amiodarone HCl 450 MG ASDIR 09/28 1115 CKD 09/19 4 (AMIODARONE HCL) IV 10/28 1114 1802 Dextrose/Water 250 ML (D5%W NON-DEHP) Amiodarone HCl 200 MG TID 09/26 2099 AC 10/03 (CORDARONE) PO 10/26 2058 0808 Metoprolol Tartrate 12.5 MG Q12HR 09/26 2099 AC 10/03 (LOPRESSOR) PO 10/26 2058 0808 Nitroglycerin/ 250 ML ASDIR 09/26 151 AC Dextrose IV 10/26 1514 (NITROGLYCERIN 50,000MCG/D5W 250ML) Central Nervous System Agents Sig/Jocy Start time Last Medication Dose Route Stop Time Status Admin Fentanyl Citrate 50 MCG Q6H PRN PRN 10/02 0230 AC 10/02 (SUBLIMAZE) IV 10/07 0229 2201 Aspirin 81 MG DAILY 09/26 2100 AC 10/03 (ASPIRIN) PO 10/26 2100 0808 Magnesium Sulfate 100 ML ASDIR PRN 09/26 1515 A C (MAGNESIUM SULFATE IV 10/26 1514 4GM/SWFI 100ML) Magnesium Sulfate 50 ML ASDIR PRN 09/26 1515 AC 10/01 (MAGNESIUM SULFATE IV 10/26 1514 0634 2GM/SWFI 50ML) Magnesium Sulfate/ 100 ML ASDIR PRN 09/26 1515 AC 09/30 Dextrose IV 10/26 1514 0636 (MAGNESIUM SULFATE 1GM/D5W 100ML) Electrolytic, Caloric, And Rolan Sig/Jocy Start time Last Medication Dose Route Stop Time Status Admin Calcium Chloride 1 GM ASDIR PRN 09/26 1515 AC (CALCIUM CHLORIDE) IV 10/26 1514 Dextrose/Water 125 ML ASDIR PRN 09/26 1515 CKD (DEXTROSE 10% IN IV 10/26 151 WATER) Dextrose/Water 250 ML ASDIR PRN 09/26 1515 CKD (DEXTROSE 10% IN IV 10/26 1514 WATER) Potassium Chloride 100 ML ASDIR PRN 09/26 1515 AC 09/26 (KCL 20MEQ/SWFI IV 10/26 1514 1750 100ML) Sodium Bicarbonate 50 MEQ ASDIR PRN 09/26 1515 AC (SODIUM BICARBONATE) IV 10/26 1514 Sodium Chloride 250 ML Q24H 09/26 1515 DC (SODIUM CHLORIDE IV 10/26 151 0.9%) Gastrointestinal Drugs Sig/Jocy Start time Last Medication Dose Route Stop Time Status Admin Bisacodyl 10 MG ONCE PRN 09/28 1200 AC (DULCOLAX) RECTAL 10/28 115 Polyethylene Glycol 17 GM DAILY 09/27 09 AC 0 10/02 (MIRALAX) PO 10/27 0859 09 Pantoprazole 40 MG DAILY@0600 09/27 0600 AC (PROTONIX) PO 10/27 0559 0630 Docusate Sodium 100 MG BID 09/26 2100 AC 10/03 (COLACE) PO 10/26 2058 0809 Sennosides 17.2 MG BEDTIME 09/26 2100 AC 10/02 (Senna Lax 8.6 MG PO 10/26 TABLET) Ondansetron HCl 4 MG Q6H PRN PRN 09/26 1515 AC (ZOFRAN) IV 10/26 151 Hormones And Synthetic Substit Sig/Jocy Start time Last Medication Dose Route Stop Time Status Admin Insulin Glargine 15 UNIT BID 10/01 2100 AC 09/19 5 (Semglee) SUBQ 10/31 2058 0811 Insulin Human Lispro 0 Q6HR 09/29 1800 AC 10/03 (HUMALOG) SUBQ 10/29 175 0637 Glucagon 1 MG ASDIR PRN 09/26 1515 AC (GLUCAGON) IM 10/26 151 Skin And Mucous Membrane Agent Sig/Jocy Start time Last Medication Dose Route Stop Time Status Admin Mupirocin 1 APPLIC BID 09/28 09 DC 10/02 (BACTROBAN 2% 22 GM NASAL 10/02 2100 5130 OINTMENT) Vitamins Sig/Jocy Start time Last Medication Dose Route Stop Time Status Admin Cyanocobalamin 500 MCG DAILY 09/29 0900 AC 09/19 5 (Vitamin B-12 500 PO 10/29 0859 0808 mcg tab) Allergies: Coded Allergies: No Known Allergies (09/24/22) Review of Systems Constitutional: fatigue, generalized weakness. All systems rev neg: except as marked Objective VS/I O: Last Documented: Result Date Time Pulse Ox 100 10/03 0820 FiO2 21 10/03 0820 O2 Delivery Room air 10/03 0820 B/P 134/60 10/03 0800 B/P Mean 87 10/03 0800 Pulse 71 10/03 0800 Resp 23 10/03 0800 O2 Flow Rate 1 10/03 0421 Temp 97.4 10/02 1200 24 hour I O ending at 0700: 10/03 0700 10/02 1900 Intake Total 240 720 Output Total 1340 1275 Balance -1100 -555 Intake, Oral 240 240 Intake, Oral 480 Supplement Number 1 Bowel Movements Number Voids 7 Output, Urine 1340 1275 Patient 175 lb Weight Weight Standing scale Measurement Method PATIENT WEIGHT: Weight (lb): 175 Weight (oz): 7.81 Weight (kg): 79.600 General appearance: alert, awake Head/Eyes: atraumatic, clear cornea, EOMI ENT: normal dentition, normal ear left, normal e ar right Neck: full range of motion, non-tender, no lymph adenopathy Cardiovascular: normal capillary refill, pedal p ulses present, regular rate rhythm Respiratory: aerating well, symmetric expansion Abdomen: soft, non-tender, no guarding, no rebou nd Genitourinary: not indicated Extremities: moves all, no clubbing, no cyanosis Musculoskeletal: painless range of motion, no mu scle spasm Neuro/RN ELIGIBILITY: alert, oriented X 3 Skin: surgical incisions C/D/I Lymphatics: no lymphadenopathy Psychiatry: normal affect, normal judgment/insig ht Results Findings/Data: Laboratory Tests: 10/03 10/03 10/03 10/03 0633 0218 0218 0045 Chemistry Sodium (134 - 147 mEq/L) 138 Potassium (3.4 - 5.0 mEq/L) 4.1 Chloride (100 - 108 mEq/L) 104 Carbon Dioxide (21 - 33 mEq/l) 27 Anion Gap (0 - 20) 11 BUN (7 - 18 mg/dL) 13 Creatinine (0.6 - 1.3 mg/dL) 1.0 Glomerular Filtr Rate (70 - 80) 76.1 Glucose (70 - 110 mg/dL) 163 H POC Glucose (70 - 110 MG/DL) 175 H 160 H Calcium (8.0 - 10.5 mg/dL) 9.0 Magnesium (1.80 - 2.40 mg/dL) 1.69 L Total Bilirubin (0.0 - 1.0 mg/dL) 0.80 Direct Bilirubin (0.0 - 0.30 MG/DL) 0.40 H Indirect Bilirubin (MG/DL) 0.40 AST (15 - 37 IUnit/L) 39 H ALT (30 - 65 IUnit/L) 199 H Total Alk Phosphatase (20 - 125 IUnit/L) 68 Total Protein (6.4 - 8.2 g/dL) 5.9 L Albumin (3.4 - 5.0 g/dL) 3.30 L Hematology WBC (4.5 - 11.0 x10 3/uL) 9.1 RBC (4.00 - 5.60 x10 6/uL) 2.62 L Hgb (12.5 - 16.9 g/dL) 8.3 L Hct (37.5 - 50.7 %) 24.7 L MCV (81.0 - 99.0 fL) 94.3 MCH (27.0 - 33.0 pg) 31.7 MCHC (33.0 - 37.0 g/dL) 33.6 RDW (11.5 - 14.5 %) 14.7 H Plt Count (150 - 400 x10 3/uL) 265 MPV (7.0 - 9.0 fL) 10.5 H Neut % (Auto) (56.0 - 77.0 %) 77.2 H Lymph % (Auto) (14.0 - 32.0 %) 11.2 L Isabella % (Auto) (4.8 - 9.0 %) 8.4 Eos % (Auto) (0.3 - 3.7 %) 1.5 Baso % (Auto) (0.0 - 2.0 %) 0.1 Neut # (Auto) (2.0 - 7.6 x10 3/uL) 7.05 Lymph # (Auto) (1.0 - 3.8 x10 3/uL) 1.02 Isabella # (Auto) (0.1 - 0.8 x10 3/uL) 0.77 Eos # (Auto) (0.0 - 0.2 x10 3/uL) 0.14 Baso # (Auto) (0.0 - 0.2 x10 3/uL) 0.01 Abs Immat Gran (auto) (0.00 - 0.03 x10 3/uL) 0. 15 H Add Manual Diff NO Immature Gran % (0.0 - 2.0 %) 1.6 Nucleated RBC % (0 - 0 %) 0.2 H Nucleated RBCs # (Man) (0.0 - 0.1 x10 3/uL) 0.0 2 10/02 10/02 1810 1151 Chemistry POC Glucose (70 - 110 MG/DL) 151 H 293 H Recent Impressions: RADIOLOGY - XR CHEST 1 V 10/03 0520 Report Impression - Status: SIGNED Entered: 10/03/2022 0716 IMPRESSION: New mild bilateral interstitial opacities, possi ilan mild volume overload. New nonspecific left retrocardiac/basi lar opacities. Impression By: [email or web address] - Greg Britton M.D. Diagnosis, Assessment Plan Free Text DxA P Notes Free Text DxA P Notes: Severe aortic stenosis s/p AVR Multivessel CAD s/p CABG x2 Impaired mobility and gait Generalized weakness Physical deconditioning Postoperative anemia Non-STEMI HTN Hyperlipidemia Plan: Continue PT/OT Out of bed to chair Work on strength, bed mobility, transfers, gait Sternal precaution Increase endurance Fall precautions Monitor p.o. intake and nutrition Strict decubitus precautions Advance therapies as tolerated Currently supervision with transfers and ambulat ing 250 feet Consult SNF in [place] area closer to [facility]. You for referral Electronically Signed by Jacinto Wisdom on 0 10/03/22 at 1654 RPT #:[id number] END OF REPORT 2022-10-03 08:42:00-00:00 [facility] ([facility]) Cardiothoracic Surgery Prog REPORT#:[id number] REPORT STATUS: Signed DATE:10/03/22 TIME: 0842 PATIENT: MONICA BECK UNIT #: [id number] ROOM/BED: [address] : 42 AGE: 82 SEX: M ATTEND: Nicolasa Maria MD ADM AUTHOR: Kathya Maria MD * ALL edits or amendments must be made on the el [employer]/computer document * General Post-op: day 7 Status post: 09/27/22 ROCEDURES: 1. Aortic valve replacement (25 Inspiris valve) . 2. Coronary artery bypass graft surgery x2 (CASTRO A to LAD, saphenous vein to marginal). 3. Amputation of left atrial appendage. 4. Endoscopic vein harvest (right greater saphe nous vein). 5. Posterior pericardiotomy. Subjective Chief complaint: POst op AVR Review of Systems Constitutional: Denies: chills, fever, malaise. Allergy/Immun: Denies: allergic reaction. Respiratory: Denies: SOB. Cardiovascular: Denies: chest pain, palpitations. : Denies: dysuria, hematuria. Heme: Denies: bleeding. Neuro: Denies: dizziness, headache, vision change. All systems rev neg: except as marked Objective General VS/I O Last Documented: Result Date Time Pulse Ox 100 10/03 0800 B/P 134/60 10/03 0800 B/P Mean 87 10/03 0800 Pulse 71 10/03 0800 Resp 23 10/03 0800 O2 Delivery Nasal cannula 10/03 0421 O2 Flow Rate 1 10/03 0421 FiO2 21 10/02 2012 Temp 36.3 10/02 1200 24 hour I O ending at 0700: 10/03 0700 10/02 1900 Intake Total 240 720 Output Total 1340 1275 Balance -1100 -555 Intake, Oral 240 240 Intake, Oral 480 Supplement Number 1 Bowel Movements Number Voids 7 Output, Urine 1340 1275 Patient 79.6 kg Weight Weight Standing scale Measurement Method PATIENT WEIGHT: Weight (lb): 175 Weight (oz): 7.81 Weight (kg): 79.600 Dietitian Nutrition assessment The data set between the solid lines has been im ported from the dietitian's assessment. BMI Calculated: 30.1 Nutrition related diagnosis: Nutrition diagnosis details: Nutrition problem: Increased nutrient needs Nutrition etiology: Acute illness Nutrition signs and symptoms: HEALING NEEDS S/P SURGERY Nutrition prescription: 1. RECOMMEND CONTINUE CA RDIAC DIET. HONOR FOOD PREFERENCES APPROPRIATE WITH DIET ORDER. 2. PROVIDE GLUCERNA TID WITH MEALS. 3. HEALTHY HEART DIET EDUCATION PRIOR TO DISCHARGE. 4. MONITOR PO, WT, LABS, BM. Dietitian name: Fawn Stewart, DIET Assessment completed: 09/27/22 Physical Exam General appearance: alert, awake, oriented Wound/incision: Location: Sternum dry, No oozing Site condition: edges approximated, incision in tact, no drainage HEENT: anicteric, mucosal membranes moist Neck: non-tender, supple/no meningismus Cardiovascular: normal heart sounds Respiratory: aerating well, symmetric expansion, no distress Abdomen: soft, non-tender, no distention Extremities: moves all Neuro/RN ELIGIBILITY: alert, oriented X 3, normal speech, n o motor deficits Psychiatry: normal affect, normal mood Current Medications Medications: Active Meds + DC'd Last 24 Hrs Albumin Human (ALBUMINAR 5% 12.5GM/250ML) 250 ML ONCE ONE IV (DC) Amiodarone HCl (NEXTERONE 150MG/D5W 100ML) 150 M G ONCE ONE IV (DC) Amiodarone HCl (NEXTERONE 150MG/D5W 100ML) 100 M L .STK-MED ONE IV (DC) Fentanyl Citrate (SUBLIMAZE) 50 MCG Q6H PRN PRN IV Insulin Glargine (Semglee) 15 UNIT BID SUBQ Insulin Human Lispro (HUMALOG) 0 Q6HR SUBQ Ipratropium [place] (ATROVENT) 500 MCG RTQ2H PRN PRN INH Cyanocobalamin (Vitamin B-12 500 mcg tab) 500 MC G DAILY PO Ferrous Sulfate (FERROUS SULFATE) 325 MG DAILY P O Bisacodyl (DULCOLAX) 10 MG ONCE PRN RECTAL Amiodarone HCl (AMIODARONE HCL) 450 MG ASDIR IV (CKD) Dextrose/Water (D5%W NON-DEHP) 250 ML Mupirocin (BACTROBAN 2% 22 GM OINTMENT) 1 APPLIC BID NASAL (DC) Dopamine HCl/Dextrose (DOPamine 400MG/D5W 250ML) 250 ML ASDIR IV Clopidogrel Bisulfate (Plavix) 75 MG DAILY PO Polyethylene Glycol (MIRALAX) 17 GM DAILY PO Pantoprazole (PROTONIX) 40 MG DAILY@0600 PO Aspirin (ASPIRIN) 81 MG DAILY PO Amiodarone HCl (CORDARONE) 200 MG TID PO Docusate Sodium (COLACE) 100 MG BID PO Melatonin (Melatonin) 6 MG BEDTIME PO Metoprolol Tartrate (LOPRESSOR) 12.5 MG Q12HR PO Sennosides (Senna Lax 8.6 MG TABLET) 17.2 MG BED TIME PO Calcium Chloride (CALCIUM CHLORIDE) 1 GM ASDIR P RN IV Dextrose/Water (DEXTROSE 10% IN WATER) 125 ML DIR PRN IV (CKD) Dextrose/Water (DEXTROSE 10% IN WATER) 250 ML DIR PRN IV (CKD) Epinephrine (ADRENALIN CHLORIDE) 4 MG ASDIR IV Dextrose/Water (DEXTROSE 5% WATER) 246 ML Glucagon (GLUCAGON) 1 MG ASDIR PRN IM Magnesium Sulfate (MAGNESIUM SULFATE 4GM/SWFI 10 0ML) 100 ML ASDIR PRN IV Magnesium Sulfate (MAGNESIUM SULFATE 2GM/SWFI 50 ML) 50 ML ASDIR PRN IV Magnesium Sulfate/Dextrose (MAGNESIUM SULFATE 1G M/D5W 100ML) 100 ML ASDIR PRN IV Nitroglycerin/Dextrose (NITROGLYCERIN 50,000MCG/ D5W 250ML) 250 ML ASDIR IV Norepinephrine Bitartrate (NOREPINEPHRINE 8 MG/N S 250 ML) 250 ML TITRATE IV Ondansetron HCl (ZOFRAN) 4 MG Q6H PRN PRN IV Potassium Chloride (KCL 20MEQ/SWFI 100ML) 100 ML ASDIR PRN IV Sodium Bicarbonate (SODIUM BICARBONATE) 50 MEQ A SDIR PRN IV Sodium Chloride (SODIUM CHLORIDE 0.9%) 250 ML Q2 4H IV (DC) Results Findings/Data: Laboratory Tests 10/03 10/03 10/03 10/03 10/02 0633 0218 0218 0045 1810 Chemistry Sodium (134 - 147 mEq/L) 138 Potassium (3.4 - 5.0 mEq/L) 4.1 Chloride (100 - 108 mEq/L) 104 Carbon Dioxide (21 - 33 mEq/l) 27 Anion Gap (0 - 20) 11 BUN (7 - 18 mg/dL) 13 Creatinine (0.6 - 1.3 mg/dL) 1.0 Glomerular Filtr Rate (70 - 80) 76.1 Glucose (70 - 110 mg/dL) 163 H POC Glucose (70 - 110 MG/DL) 175 H 160 H 151 H Calcium (8.0 - 10.5 mg/dL) 9.0 Magnesium (1.80 - 2.40 mg/dL) 1.69 L Total Bilirubin (0.0 - 1.0 mg/dL) 0.80 Direct Bilirubin (0.0 - 0.30 MG/DL) 0.40 H Indirect Bilirubin (MG/DL) 0.40 AST (15 - 37 IUnit/L) 39 H ALT (30 - 65 IUnit/L) 199 H Total Alk Phosphatase (20 - 125 IUnit/L) 68 Total Protein (6.4 - 8.2 g/dL) 5.9 L Albumin (3.4 - 5.0 g/dL) 3.30 L 10/02 1151 Chemistry POC Glucose (70 - 110 MG/DL) 293 H Laboratory Tests 10/038 Hematology WBC (4.5 - 11.0 x10 3/uL) 9.1 RBC (4.00 - 5.60 x10 6/uL) 2.62 L Hgb (12.5 - 16.9 g/dL) 8.3 L Hct (37.5 - 50.7 %) 24.7 L MCV (81.0 - 99.0 fL) 94.3 MCH (27.0 - 33.0 pg) 31.7 MCHC (33.0 - 37.0 g/dL) 33.6 RDW (11.5 - 14.5 %) 14.7 H Plt Count (150 - 400 x10 3/uL) 265 MPV (7.0 - 9.0 fL) 10.5 H Neut % (Auto) (56.0 - 77.0 %) 77.2 H Lymph % (Auto) (14.0 - 32.0 %) 11.2 L Isabella % (Auto) (4.8 - 9.0 %) 8.4 Eos % (Auto) (0.3 - 3.7 %) 1.5 Baso % (Auto) (0.0 - 2.0 %) 0.1 Neut # (Auto) (2.0 - 7.6 x10 3/uL) 7.05 Lymph # (Auto) (1.0 - 3.8 x10 3/uL) 1.02 Isabella # (Auto) (0.1 - 0.8 x10 3/uL) 0.77 Eos # (Auto) (0.0 - 0.2 x10 3/uL) 0.14 Baso # (Auto) (0.0 - 0.2 x10 3/uL) 0.01 Abs Immat Gran (auto) (0.00 - 0.03 x10 3/uL) 0. 15 H Add Manual Diff NO Immature Gran % (0.0 - 2.0 %) 1.6 Nucleated RBC % (0 - 0 %) 0.2 H Nucleated RBCs # (Man) (0.0 - 0.1 x10 3/uL) 0.0 2 Radiology data: Recent Impressions: RADIOLOGY - XR CHEST 1 V 10/03 05 Report Impression - Status: SIGNED Entered: 10/03/2022 0716 IMPRESSION: New mild bilateral interstitial opacities, possi ilan mild volume overload. New nonspecific left retrocardiac/basi lar opacities. Impression By: [email or web address] - Greg Britton M.D. Results: labs reviewed, vital signs stable, ryth m personally rev'd, x-ray personally reviewed, current med profile rev'd Diagnosis, Assessment Plan Hospital course to date: Mr Beck a very pleasant 82-year-old male with past medical history of diabetes, hyperlipidemia, restless leg syndrome aortic valve stenosis who presented to [facility] complaining of substernal chest pain across the anterior chest positive for n ausea and diaphoresis. CT chest showed small to moderate bilateral pleural effusions, ascending aorta measuring 4.2 cm. Cardiac enzymes elevated pat ient deemed non-STEMI. He was taken to the [facility] coronary angiogram revealed severe multivessel coronary artery disease. Patient started on heparin drip and transferred to [facility] for possible CABG and AVR. PLAN Coronary angiogram images will be uploaded in [employer] system Dr Maria explained to the patient his family t he angiogram findings and echocardiogram findings and recommended coronary artery bypass graft and aortic valve replacement. The surgery, risks involved, STS score, benefits, complications and alternatives were expl ained to the patient including risk of stroke, respiratory failure, need for tracheosto my, renal failure requiring dialysis, bleeding, infection. Patient acknowled ged understanding and is willing to proceed Initiate preop work-up for AVR Carotid ultrasound BLE venous doppler for vein mapping and marking UA to rule out UTI We will tentatively schedule patient for AVR on 09/26 Preop assessment ongoing Denies chest pain, no shortness of breath Remains on heparin drip Carotid ultrasound showed less than 50% stenosis bilaterally Noncontrasted CT chest performed at [facility] reviewed with Dr. Maria. Images will be uploaded in our system. Coronary angiogram images uploaded in [employer] o Plan for CABG and AVR tomorr ow morning. The surgery, risks involved, STS score, benefits, complications and alternatives were ex plained to the patient. He acknowledged understanding and is willing to pro ceed. Patient changed code status to FULL CODE as he i s going for surgery N.p.o. after midnight 09/27/22 POD 1 AAOx3 Respiratory: 3 l NC, wwean as tolerated. Encourage IS, Deep Breathing, CXR reviewed Cardiac: remains sinus rhtyhm. Pacing wires on s tandb GI: Continue Bowel regimen, no bm yet UO: 1200 Continue PT/OT Disposition: DVT prophylaxis Labs reveiwed- replace electrolytes as needed Patient seen and examined by Dr. Maria. Plan o f care discussed with multidisciplinary team 09/28/22 POD 2 AAOx3 Respiratory: On 2 L NC, 100%, wean as tolerated. Encourage IS, Deep Breathing, CXR reviewed, chest tube in place continue to d rain 300 cc Cardiac: Atrial fibrillation today. Amio bolus g iven, hypotension when moving to the chair. HGB trending down, Will repeat this Am. GI: Passing gas, continue Bowel regimen : King in place, UO: 425 Continue PT/OT Disposition: Pending course DVT prophylaxis Labs reveiwed- replace electrolytes as needed Patient seen and examined by Dr. Maria. Plan o f care discussed with multidisciplinary team 09/29/22 POD 3 AAOx3 Respiratory: On room air, 99% Encourage IS, Deep Breathing, CXR reviewed, CT in place, Still outputs high- continue to monitor. Cardiac: Sinus rhtyhm. Pacer on standby. HGB trending down, Will monitor and repeat. GI: Passing gas, continue Bowel regimen, elevati on liver enzymes likely from amiodarone, will hold Amio for now. : King in place, UO: Urine output low, will consult renal. Victoria t was started on dopamine yesterday subsequently went into A-fib RVR. Amio bolus was given Continue PT/OT Disposition: Pending course DVT prophylaxis Labs reveiwed- replace electrolytes as needed Patient seen and examined by Dr. Maria. Plan o f care discussed with multidisciplinary team 09/30/22 POD 5 AAOx3 Respiratory: On room air, 99% Encourage IS, Deep Breathing, CXR reviewed, Chest tubes out Cardiac: Sinus rhtyhm. Pacer on standby. HGB trending down, Will monitor and repeat. GI: Passing gas, continue Bowel regimen, elevati on liver enzymes likely from amiodarone, will hold Amio for now. : King in place, need 1 more day for urine ou tput. UO: Improving IV fluids stopped, renal f ollowing creatinine improving 1.3 from 1.5 today. Continue PT/OT Disposition: Pending course DVT prophylaxis Labs reveiwed- replace electrolytes as needed Patient seen and examined by Dr. Maria. Plan o f care discussed with multidisciplinary team DC central line 10/01/22 POD 6 AAOx3 Respiratory: On room air, 99% Encourage IS, Deep Breathing, CXR reviewed, Chest tubes out Cardiac: Sinus rhtyhm. Pacer on standby. HGB trending down, Will monitor and repeat. GI: Small BM yest- continue bowel regimen, Liver enzymes trending down. On p.o. Amio : DC king today, Renal function improing 1.3- ->1.1 UO:1800- off IV fluids Continue PT/OT Disposition: Pending course- patient wants to go home with DVT prophylaxis Labs reveiwed- replace electrolytes as needed Patient seen and examined by Dr. Maria. Plan o f care discussed with multidisciplinary team Okay to CVN 1 today 10/02/22 POD 6 AAOx3 Respiratory: On room air, 99% Encourage IS, Deep Breathing, CXR reviewed, Chest tubes out Cardiac: Patient went into atrial fibrillation t his a.m. Converted with amnio bolus and drip.. Pacer on standby. Hemoglobin stable 8.6 GI: Small BM yest- continue bowel regimen, Liver enzymes trending down. On p.o. Amio : DC king today, Renal function improing 1.3- ->1.1 UO:1725- off IV fluids Continue PT/OT Disposition: SNF-patient unable to care for him at home, Case management consulted. DVT prophylaxis Labs reveiwed- replace electrolytes as needed Patient seen and examined by Dr. Maria. Plan o f care discussed with multidisciplinary team Okay to CVN 1 today 10/03 Patient in stable condition CXR and labs reviewed, electrolytes replaced On room air, encourage I-S use Converted to NSR, on amiodarone, monitor LFTs Tolerating diet, nutritional supplements, +BM DVT ppx- SCDs Consult rehab Transfer to CV intermediate care unit Consultants: cardiovascular surgery at 0237 [facility] #:[id number] END OF REPORT 2022-10-03 08:39:00-00:00 [id number] [place] [address] PATIENT NAME: MONICA BECK ADMIT DATE: 09/24/22 ACCOUNT NO: [id number] ROOM NO: [facility] AGE: 82 REPORT TYPE: eECHOCARDIOGRAM REPORT SEX: M ADMITTING PHYSICIAN:Kathya Maria MD ATTENDING PHYSICIAN:Kathya Maria MD *[facility]* [address] [place] [address] Limited Transthoracic Echocardiogram Patient: Monica Beck Study Date: 09/29/2022 BP: 95 / 56 Location: [facility] URN: [id number] 2526 : 1940 Age: 82 Height: 64 in / 162.6 cm Gender: M Weight: 184 .6 lb / 83.9 kg BMI/BSA: 31.8 kg/m 2 / 1.98 m 2 *Ordering Physician: * Milton Mast *Interpreting Physician: * Jakob Pa MD *Cloth Calender: * Claudia Mayorga Indications: R/O PERICARDIAL EFFUSION. Study data: Transthoracic echocardiogram, limite d study. Procedure: Transthoracic echocardiography was performed. Im age quality was fair. The study was technically limited due to poor pa tient compliance and surgical dressings. Limited 2D and limited spect ral Doppler. Location: Bedside. Patient status: Inpatient. Remi dunn number: [id number]. Study status: Routine. Findings Left ventricle: Systolic function is mildly redu nori. The estimated ejection fraction is 40-44%. Aortic valve: There is a bioprosthetic valve. Th ere is trivial regurgitation. PATIENT NAME: MONICA BECK ACCOUNT #: [id number] Mitral valve: There is mild regurgitation. Tricuspid valve: RVSP calculated 59.02 mmHg. The re is moderate regurgitation. Pericardium: There is no pericardial effusion. Systemic veins: Inferior vena cava: The vessel is normal in size . Measurements Left ventricle Value 09/28/2022 Ref ANNE, LAX 4.3 cm 4.7 4.2 - 5.8 ESD, LAX 4.0 cm 4.0 2.5 - 4.0 ESD/bsa, LAX 2.0 cm/m 2 2.1 1.3 - 2.1 FS, LAX 8 % 16 25 - 43 ESD/bsa major 3.5 cm/m 2 ------ ax, A4C ANNE/bsa minor 3.5 cm/m 2 ------ ax, A4C ANNE major ax, 8.2 cm ------ A2C ANNE/bsa major 4.2 cm/m 2 ------ ax, A2C PW, ED 1.3 cm 1.4 0.6 - 1.0 IVS/PW, ED 1.23 1 ------ EF 18 % 34 52 - 72 E', lat avis, 9.8 cm/sec >=10.0 TDI E/e', lat 12 ------ avis, TDI E', med avis, 5.1 cm/sec >=7.0 TDI E/e', med 23 ------ avis, TDI E', avg, TDI 7.4 cm/sec ------ E/e', avg, 16 <=14 TDI Ventricular septum Value 09/28/2022 Ref IVS, ED 1.6 cm 1.4 0.6 - 1.0 Right ventricle Value 09/28/2022 Ref TAPSE, MM 0.9 cm 1.7 - 3.1 Pressure, S 59 mm Hg ------ S' lateral 3.8 cm/sec 6.0 - 13.4 PATIENT NAME: MONICA BECK ACCOUNT #: [id number] Mitral valve Value 09/28/2022 Ref Peak E 1.15 m/sec ------ Peak A 0.79 m/sec ------ Mean v, D 0.81 m/sec ------ VTI leaflet 33.1 cm ------ coapt Decel time 191 ms ------ PHT 68 ms ------ Mean grad, D 3.0 mm Hg ------ Peak grad, D 6.7 mm Hg ------ Peak E/A 1.45 ------ ratio MVA, PHT 3.2 cm 2 ------ Tricuspid valve Value 09/28/2022 Ref TR peak v 3.5 m/sec 2.54 <=2.8 Peak RV-RA 49 mm Hg 26 ------ grad, S ERO, PISA 0.1 cm 2 ------ Pulmonary artery Value 09/28/2022 Ref Pressure, S 59.0 mm Hg ------ Systemic veins Value 09/28/2022 Ref Estimated CVP 10 mm Hg ------ Conclusions Summary: 1. Left ventricle: Systolic function is mildly r educed. The estimated ejection fraction is 40-44%. 2. Aortic valve: There is a bioprosthetic valve. 3. Tricuspid valve: RVSP calculated 59.02 mmHg. There is moderate regurgitation. Prepared and electronically signed by Jakob Pa MD 10/03/2022 08:39 Electronically Signed by Jakob Pa MD on 0 10/03/22 at 0839 PATIENT NAME: MONICA BECK ACCOUNT #: [id number] 2022-10-02 18:00:00-00:00 HCACL [facility] Critical Care Progress Note REPORT#:[id number] REPORT STATUS: Signed DATE:10/02/22 TIME: 1800 PATIENT: MONICA BECK UNIT #: [id number] ROOM/BED: [place] [id number] : [birth year] AGE: 82 SEX: M ATTEND: Ab romain Maria MD ADM AUTHOR: Sade Arana MD * ALL edits or amendments must be made on the [employer]/computer document * See Addendum Subjective Chief complaint: CABG HPI: 82-year-old male with history of HTN, HL, NIDDM, aortic stenosis and restless leg syndrome, who presented to outside hospital with chest pain and found to have non-STEMI. Cardiac catheter revealed severe multivessel coronary artery disease. Patient underwent A VR (25 INSPIRIS), CABG X2 (NAIR-LAD, SVG-OM), ALAA, EVH (RGSV) and posterior per icardiotomy today at 09/26/2022. EF was 30-35% and it slightly improved postop 40% on ANKUR. Crystalloid 1.8 L, albumin 150, urine output 600, Cell Saver 250. Surgery went well so patient was extubated and transferred to CVICU postop in a stable surgical condition. He was weaned off all vasopressors coming off pump and is currently on nitroglycerin and insulin drip. Comments: The patient offers no new complaints No SOB Afebrile Still complains of chest aches Developed A-fib with RVR Converted to normal sinus rhythm with amiodarone bolus and drip Review of Systems Free Text ROS Notes Free Text ROS Notes: 12 point Review of Systems was performed to the extent possible including discussion with the nursing staff and review of vital signs and all data. All systems negative other than pertinent negative/p ositive findings mentioned in the interval history section. Objective General VS/I O Last Documented: Result Date Time Resp 25 10/02 1708 Pulse Ox 100 10/02 1700 B/P 143/67 10/02 1700 B/P Mean 97 10/02 1700 Pulse 68 10/02 1700 FiO2 21 10/02 1632 O2 Delivery Room air 10/02 1632 Temp 36.3 10/02 1200 O2 Flow Rate 2 09/29 0809 24 hour I O ending at 0700: 10/02 0700 10/01 1900 Intake Total 240 594 Output Total 1325 400 Balance -1085 194 Intake, Oral 240 236 Intake, Oral 358 Supplement Number 1 2 Bowel Movements Number Voids 2 Output, Urine 1325 400 PATIENT WEIGHT: Weight (lb): 180 Weight (oz): 8.94 Weight (kg): 81.900 Medications: Active Meds + DC'd Last 24 Hrs Albumin Human (ALBUMINAR 5% 12.5GM/250ML) 250 ML ONCE ONE IV (DC) Amiodarone HCl (NEXTERONE 150MG/D5W 100ML) 150 M G ONCE ONE IV (DC) Amiodarone HCl (NEXTERONE 150MG/D5W 100ML) 100 M L .STK-MED ONE IV (DC) Fentanyl Citrate (SUBLIMAZE) 50 MCG Q6H PRN PRN IV Insulin Glargine (Semglee) 15 UNIT BID SUBQ Insulin Human Lispro (HUMALOG) 0 Q6HR SUBQ Ipratropium [place] (ATROVENT) 500 MCG RTQ2H PRN PRN INH Cyanocobalamin (Vitamin B-12 500 mcg tab) 500 MC G DAILY PO Ferrous Sulfate (FERROUS SULFATE) 325 MG DAILY P O Bisacodyl (DULCOLAX) 10 MG ONCE PRN RECTAL Amiodarone HCl (AMIODARONE HCL) 450 MG ASDIR IV (CKD) Dextrose/Water (D5%W NON-DEHP) 250 ML Mupirocin (BACTROBAN 2% 22 GM OINTMENT) 1 APPLIC BID NASAL Dopamine HCl/Dextrose (DOPamine 400MG/D5W 250ML) 250 ML ASDIR IV Clopidogrel Bisulfate (Plavix) 75 MG DAILY PO Polyethylene Glycol (MIRALAX) 17 GM DAILY PO Pantoprazole (PROTONIX) 40 MG DAILY@0600 PO Aspirin (ASPIRIN) 81 MG DAILY PO Amiodarone HCl (CORDARONE) 200 MG TID PO Docusate Sodium (COLACE) 100 MG BID PO Melatonin (Melatonin) 6 MG BEDTIME PO Metoprolol Tartrate (LOPRESSOR) 12.5 MG Q12HR PO Sennosides (Senna Lax 8.6 MG TABLET) 17.2 MG BED TIME PO Fentanyl Citrate (SUBLIMAZE) 50 MCG Q3H PRN PRN IV (DC) Tramadol HCl (ULTRAM) 50 MG Q4H PRN PRN PO (DC) Tramadol HCl (ULTRAM) 25 MG QID PRN PO (DC) Calcium Chloride (CALCIUM CHLORIDE) 1 GM ASDIR P RN IV Dextrose/Water (DEXTROSE 10% IN WATER) 125 ML DIR PRN IV (CKD) Dextrose/Water (DEXTROSE 10% IN WATER) 250 ML DIR PRN IV (CKD) Epinephrine (ADRENALIN CHLORIDE) 4 MG ASDIR IV Dextrose/Water (DEXTROSE 5% WATER) 246 ML Glucagon (GLUCAGON) 1 MG ASDIR PRN IM Magnesium Sulfate (MAGNESIUM SULFATE 4GM/SWFI 10 0ML) 100 ML ASDIR PRN IV Magnesium Sulfate (MAGNESIUM SULFATE 2GM/SWFI 50 ML) 50 ML ASDIR PRN IV Magnesium Sulfate/Dextrose (MAGNESIUM SULFATE 1G M/D5W 100ML) 100 ML ASDIR PRN IV Nitroglycerin/Dextrose (NITROGLYCERIN 50,000MCG/ D5W 250ML) 250 ML ASDIR IV Norepinephrine Bitartrate (NOREPINEPHRINE 8 MG/N S 250 ML) 250 ML TITRATE IV Ondansetron HCl (ZOFRAN) 4 MG Q6H PRN PRN IV Potassium Chloride (KCL 20MEQ/SWFI 100ML) 100 ML ASDIR PRN IV Sodium Bicarbonate (SODIUM BICARBONATE) 50 MEQ A SDIR PRN IV Sodium Chloride (SODIUM CHLORIDE 0.9%) 250 ML Q2 4H IV (DC) Results Findings/data: Laboratory Tests 10/02 10/02 10/02 10/02 10/02 1151 0753 0633 0314 0011 Chemistry Sodium (134 - 147 mEq/L) 140 Potassium (3.4 - 5.0 mEq/L) 4.2 Chloride (100 - 108 mEq/L) 106 Carbon Dioxide (21 - 33 mEq/l) 30 Anion Gap (0 - 20) 8 BUN (7 - 18 mg/dL) 16 Creatinine (0.6 - 1.3 mg/dL) 1.1 Glomerular Filtr Rate (70 - 80) 67.9 L Glucose (70 - 110 mg/dL) 155 H POC Glucose (70 - 110 MG/DL) 293 H 149 H 137 H 223 H Calcium (8.0 - 10.5 mg/dL) 9.1 Magnesium (1.80 - 2.40 mg/dL) 1.90 Total Bilirubin (0.0 - 1.0 mg/dL) 0.60 Direct Bilirubin (0.0 - 0.30 MG/DL) 0.30 Indirect Bilirubin (MG/DL) 0.30 AST (15 - 37 IUnit/L) 58 H ALT (30 - 65 IUnit/L) 288 H Total Alk Phosphatase (20 - 125 IUnit/L) 89 Total Protein (6.4 - 8.2 g/dL) 5.9 L Albumin (3.4 - 5.0 g/dL) 3.10 L 10/01 2058 Chemistry POC Glucose (70 - 110 MG/DL) 166 H Laboratory Tests 10/024 Hematology WBC (4.5 - 11.0 x10 3/uL) 7.1 RBC (4.00 - 5.60 x10 6/uL) 2.71 L Hgb (12.5 - 16.9 g/dL) 8.6 L Hct (37.5 - 50.7 %) 25.6 L MCV (81.0 - 99.0 fL) 94.5 MCH (27.0 - 33.0 pg) 31.7 MCHC (33.0 - 37.0 g/dL) 33.6 RDW (11.5 - 14.5 %) 14.5 Plt Count (150 - 400 x10 3/uL) 245 MPV (7.0 - 9.0 fL) 10.6 H Neut % (Auto) (56.0 - 77.0 %) 72.4 Lymph % (Auto) (14.0 - 32.0 %) 13.3 L [place]abella % (Auto) (4.8 - 9.0 %) 10.3 H Eos % (Auto) (0.3 - 3.7 %) 1.1 Baso % (Auto) (0.0 - 2.0 %) 0.1 Neut # (Auto) (2.0 - 7.6 x10 3/uL) 5.11 Lymph # (Auto) (1.0 - 3.8 x10 3/uL) 0.94 L Isabella # (Auto) (0.1 - 0.8 x10 3/uL) 0.73 Eos # (Auto) (0.0 - 0.2 x10 3/uL) 0.08 Baso # (Auto) (0.0 - 0.2 x10 3/uL) 0.01 Abs Immat Gran (auto) (0.00 - 0.03 x10 3/uL) 0. 20 H Add Manual Diff NO Immature Gran % (0.0 - 2.0 %) 2.8 H Nucleated RBC % (0 - 0 %) 0.8 H Nucleated RBCs # (Man) (0.0 - 0.1 x10 3/uL) 0.0 6 Laboratory Tests 10/02/22 0314: [Embedded Image Not Available] Radiology data Recent Impressions: RADIOLOGY - XR CHEST 1 V 10/02 0740 Report Impression - Status: SIGNED Entered: 10/02/2022 0829 IMPRESSION: Lungs slightly improved. Impression By: LisaABPriya - Varghese Johns M.D. Free Text Obj Notes Free Text Obj Notes: General appearance: Elderly male in no acute dis tress, interactive and conversational HEENT: atraumatic, normocephalic, moist mucosal membranes Neck: full range of motion, supple/no meningismu s Cardiovascular: S1-S2 regular rate and rhythm Respiratory: symmetric expansion, no acute respi ratory distress Abdomen: soft, non-tender, no distention, no gua rding Genitourinary: king with clear urine Extremities: pedal pulses palpable, moves all, n o clubbing, no cyanosis, no edema Musculoskeletal: normal inspection, no muscle sp asm Neuro/RN ELIGIBILITY: Alert and oriented x3, CNII-XII gross ly intact, no motor deficits Skin: dry, intact and clean surgery dressing Diagnosis, Assessment Plan Problem list/A P: 1. CAD (coronary artery disease) 2. S/P CABG x 2 3. S/P AVR 4. Severe aortic stenosis Free text A P: 82-year-old male with history of HTN, HL, NIDDM, aortic stenosis and restless leg syndrome, who presented to outside hospital with chest pain and found to have non-STEMI. Cardiac catheter revealed severe multivessel coronary artery disease. Patient underwent A VR (25 INSPIRIS), CABG X2 (NAIR-LAD, SVG-OM), ALAA, EVH (RGSV) and posterior per icardiotomy today at 09/26/2022. EF was 30-35% and it slightly improved postop 40% on ANKUR. Crystalloid 1.8 L, albumin 150, urine output 600, Cell Saver 250. Surgery went well so patient was extubated and transferred to CVICU postop in a stable surgical condition. He was weaned off all vasopressors coming off pump and is currently on nitroglycerin and insulin drip. Neuro: Appears intact, multimodal pain control Respiratory: Sats well, wean O2, encourage I-S, ABG and CXR reviewed Cardiovascular: HD stable of f vasopressors, wean nitroglycerin drip, keep CTs to suction Renal: strict I/Os, monitor Cr and electrolytes, lactic acidosis, judicious resuscitation GI: bedside swallow then oral diet, bowel regime n, monitor LFTs, replete hypokalemia ID: reactive leukocytosis, trend WBC, co ntinue periop antibiotics per protocol Hem: acute postop anemia, co agulopathy and thrombocytopenia, monitor Hgb and CTs output, transfuse blood products as needed Endo: Blood glucose control with insulin gtt per protocol Misc: PT and OT consult, DVT and GI ppx with DAP T and PPI 09/27 Remains neuro intact, continue multimodal pain c ontrol Sats well, continue to wean O2, encourage I-S, A BG and CXR reviewed HD unstable back on vasopressors, attempt to wea n, check CVP, bolus as needed Cr stable, good urine output, lactic acidosis cl eared s/p resuscitation, repleted hypocalcemia Oral diet as tolerated, christopher l regimen, monitor gastric distention on x-ray, mild transaminitis No fevers or leukocytosis, given periop antibiot ics Hgb appears stable, no evidence of active bleed, monitor CTs output Blood glucose control with insulin drip, transit ion to sliding scale insulin Encourage PT/OT and out of bed as tolerated DVT and GI prophylaxis with DAPT and PPI 09/28 Remains neuro intact, continue multimodal pain c ontrol Sats well, continue to wean O2, encourage I-S, C XR reviewed HD stable weaned off vasopressors, low CVP s/p r esuscitation, amiodarone per protocol for A-fib Mild JOSE ARMANDO with uptrending Cr, given IVF and Lasix, monitor UOP and electrolytes, obtain urine lytes Oral diet as tolerated, bowel regimen, resolved transaminitis No fevers or leukocytosis, no ID issues at this time Acute postop anemia and thro mbocytopenia, hgb and plt appear stable, no evidence of active bleed, monitor CTs output, remove per CT surgery Blood glucose control with insulin drip, plan to transition to sliding scale insulin Encourage PT/OT and out of bed as tolerated DVT and GI prophylaxis with DAPT and PPI 09/29 Remains neuro intact, continue multimodal pain c ontrol Sats well on room air, continue I-S, CXR reviewe d HD stable off vasopressors s/p resuscitation, A- fib converted to SR, continue amiodarone JOSE ARMANDO with uptrending Cr, given fluids, hold off o n diuresis, monitor UOP and electrolytes Tolerating oral diet, aggressive bowel r egimen, has pneumoperitoneum on x-ray, serial abdominal exam, no further imaging or int ervention per CT surgery, transaminitis, trend LFTs No fevers or leukocytosis, no ID issues at this time Hgb and plt remain stable, no evidence of active bleed, remove chest tubes Blood glucose control with insulin drip, transitioned to sliding scale insulin Encourage PT/OT and out of bed as tolerated, dis po plan likely home DVT and GI prophylaxis with DAPT and PPI 09/30 Remains neuro intact, continue multimodal pain c ontrol Sats well on room air, continue I-S, CXR reviewe d Remains HD stable and in sinus rhythm, continue BB and oral amiodarone JOSE ARMANDO, Cr trending down after IV hydration per jennifer al Tolerating oral diet, aggressive bowel regimen, transaminitis, trend LFTs No fevers or leukocytosis, no ID issues at this time Hgb and plt remain stable, no evidence of active bleed, remove CTs today Blood glucose control, start Lantus, sliding sca le insulin Encourage PT/OT and out of bed as tolerated, dis po plan likely home DVT and GI prophylaxis with DAPT and PPI 10/01 Remains neuro intact, pain appears well controll ed with multimodal approach Sats well on room air, continue I-S, CXR reviewe d Remains HD stable and in sinus rhythm, continue BB and oral amiodarone, off statin JOSE ARMANDO resolved s/p IV hydration, may need diuresis , replete hypomagnesemia Tolerating oral diet, aggres sive bowel regimen, transaminitis with downtrending LFTs Remains afebrile, no leukocytosis, no ID issues at this time Hgb remains stable, thromboc ytopenia resolved, no evidence of active bleed, CTs removed Blood glucose uncontrolled, increase Lantus, con tinue sliding scale insulin Tolerating PT/OT and out of bed, not deniz lified for IPR, may need SNF if unable to go home DVT and GI prophylaxis with DAPT and PPI 10/02 On room air Inhaled bronchodilators as needed Incentive spirometry Judicious pain control, fentanyl as needed. Avoi d acetaminophen products. Amiodarone bolus and drip Aspirin and Plavix Amiodarone p.o. Atorvastatin Metoprolol Monitor kidney function and trend creatinine Monitor and replete electrolytes Strict I O's Cardiac diet with bowel regimen Blood glucose control, sliding scale insulin VTE prophylaxis, DOAC's Stress ulcer prophylaxis, PPI Discussed with ICU team and CV team Critical care time 37 minutes Consultants: cardiovascular surgery at 2054 Addendum 1: 10/02/222219 by Sade Arana MD Correction VTE prophylaxis, DAPT at 2221 RPT #:[id number] END OF REPORT 2022-10-02 11:47:00-00:00 [facility]L [facility] ([facility]) Nephrology Progress Note REPORT#:[id number] REPORT STATUS: Signed DATE:10/02/22 TIME: 1147 PATIENT: MONICA BECK UNIT #: [id number] ROOM/BED: [place] [address] : 42 AGE: 82 SEX: M ATTEND: Nicolasa Maria MD ADM AUTHOR: Arin Rossi MD * ALL edits or amendments must be made on the [employer] document * Subjective Chief complaint: follow up of ARF Review of Systems Constitutional: Reports: generalized weakness. All systems rev neg: except as marked Objective General VS/I O: Vital Signs: Date Time Temp Pulse Resp B/P B/P Pulse O2 O2 F low FiO2 Mean Ox Delivery Rate 10/02 0600 70 22 125/60 87 96 10/02 0401 79 19 125/57 78 99 10/02 0301 68 16 122/56 81 99 10/02 0201 87 23 129/63 91 97 10/02 0101 85 23 85/53 66 97 10/02 0001 83 23 133/70 96 96 10/01 2301 100 41 125/74 96 91 10/01 2200 76 22 116/58 81 94 10/01 2100 80 22 127/60 86 95 10/01 2000 98.2 94 26 96/55 72 100 10/01 1945 97 Room air 10/01 1900 95 25 121/81 97 94 10/01 1700 69 22 152/67 96 98 10/01 1600 74 24 148/66 95 98 10/01 1501 67 22 146/64 92 97 10/01 1500 98 Room air 21 10/01 1401 64 19 121/56 81 95 10/01 1300 67 23 144/65 93 99 10/01 1200 69 21 149/65 93 93 24 hour I O ending at 0700: 10/02 0700 10/01 1900 Intake Total 240 594 Output Total 1325 400 Balance -1085 194 Intake, Oral 240 236 Intake, Oral 358 Supplement Number 1 2 Bowel Movements Number Voids 2 Output, Urine 1325 400 PATIENT WEIGHT: Weight (lb): 180 Weight (oz): 8.94 Weight (kg): 81.900 Medications Active Meds + DC'd Last 24 Hrs Albumin Human (ALBUMINAR 5% 12.5GM/250ML) 250 ML ONCE ONE IV (DC) Amiodarone HCl (NEXTERONE 150MG/D5W 100ML) 150 M G ONCE ONE IV (DC) Amiodarone HCl (NEXTERONE 150MG/D5W 100ML) 100 M L .STK-MED ONE IV (DC) Fentanyl Citrate (SUBLIMAZE) 50 MCG Q6H PRN PRN IV Insulin Glargine (Semglee) 15 UNIT BID SUBQ Insulin Human Lispro (HUMALOG) 0 Q6HR SUBQ Ipratropium [place] (ATROVENT) 500 MCG RTQ2H PRN PRN INH Cyanocobalamin (Vitamin B-12 500 mcg tab) 500 MC G DAILY PO Ferrous Sulfate (FERROUS SULFATE) 325 MG DAILY P O Bisacodyl (DULCOLAX) 10 MG ONCE PRN RECTAL Amiodarone HCl (AMIODARONE HCL) 450 MG ASDIR IV (CKD) Dextrose/Water (D5%W NON-DEHP) 250 ML Mupirocin (BACTROBAN 2% 22 GM OINTMENT) 1 APPLIC BID NASAL Dopamine HCl/Dextrose (DOPamine 400MG/D5W 250ML) 250 ML ASDIR IV Clopidogrel Bisulfate (Plavix) 75 MG DAILY PO Polyethylene Glycol (MIRALAX) 17 GM DAILY PO Pantoprazole (PROTONIX) 40 MG DAILY@0600 PO Aspirin (ASPIRIN) 81 MG DAILY PO Amiodarone HCl (CORDARONE) 200 MG TID PO Docusate Sodium (COLACE) 100 MG BID PO Melatonin (Melatonin) 6 MG BEDTIME PO Metoprolol Tartrate (LOPRESSOR) 12.5 MG Q12HR PO Sennosides (Senna Lax 8.6 MG TABLET) 17.2 MG BED TIME PO Fentanyl Citrate (SUBLIMAZE) 50 MCG Q3H PRN PRN IV (DC) Tramadol HCl (ULTRAM) 50 MG Q4H PRN PRN PO (DC) Tramadol HCl (ULTRAM) 25 MG QID PRN PO (DC) Calcium Chloride (CALCIUM CHLORIDE) 1 GM ASDIR P RN IV Dextrose/Water (DEXTROSE 10% IN WATER) 125 ML DIR PRN IV (CKD) Dextrose/Water (DEXTROSE 10% IN WATER) 250 ML DIR PRN IV (CKD) Epinephrine (ADRENALIN CHLORIDE) 4 MG ASDIR IV Dextrose/Water (DEXTROSE 5% WATER) 246 ML Glucagon (GLUCAGON) 1 MG ASDIR PRN IM Magnesium Sulfate (MAGNESIUM SULFATE 4GM/SWFI 10 0ML) 100 ML ASDIR PRN IV Magnesium Sulfate (MAGNESIUM SULFATE 2GM/SWFI 50 ML) 50 ML ASDIR PRN IV Magnesium Sulfate/Dextrose (MAGNESIUM SULFATE 1G M/D5W 100ML) 100 ML ASDIR PRN IV Nitroglycerin/Dextrose (NITROGLYCERIN 50,000MCG/ D5W 250ML) 250 ML ASDIR IV Norepinephrine Bitartrate (NOREPINEPHRINE 8 MG/N S 250 ML) 250 ML TITRATE IV Ondansetron HCl (ZOFRAN) 4 MG Q6H PRN PRN IV Potassium Chloride (KCL 20MEQ/SWFI 100ML) 100 ML ASDIR PRN IV Sodium Bicarbonate (SODIUM BICARBONATE) 50 MEQ A SDIR PRN IV Sodium Chloride (SODIUM CHLORIDE 0.9%) 250 ML Q2 4H IV Physical Exam General appearance: alert, awake, oriented Head/eyes: atraumatic, normocephalic, PERRLA ENT: moist mucous membranes Neck: no JVD, no lymphadenopathy Cardiovascular: normal heart sounds, regular rat e and rhythm, no rub Respiratory: aerating well, clear to auscultatio n, no distress Abdomen: non-tender, normal bowel sounds, soft, no rebound Genitourinary: urinary catheter, urine, no bladd er distention, no flank pain Extremities: no edema, no gangrene Neuro/RN ELIGIBILITY: alert, oriented X 3, CN II-XII intact , normal speech Results Findings/Data: Laboratory Tests 10/02 10/02 10/02 10/02 10/01 0753 0633 0314 0011 2059 Chemistry Sodium (134 - 147 mEq/L) 140 Potassium (3.4 - 5.0 mEq/L) 4.2 Chloride (100 - 108 mEq/L) 106 Carbon Dioxide (21 - 33 mEq/l) 30 Anion Gap (0 - 20) 8 BUN (7 - 18 mg/dL) 16 Creatinine (0.6 - 1.3 mg/dL) 1.1 Glomerular Filtr Rate (70 - 80) 67.9 L Glucose (70 - 110 mg/dL) 155 H POC Glucose (70 - 110 MG/DL) 149 H 137 H 223 H 166 H Calcium (8.0 - 10.5 mg/dL) 9.1 Magnesium (1.80 - 2.40 mg/dL) 1.90 Total Bilirubin (0.0 - 1.0 mg/dL) 0.60 Direct Bilirubin (0.0 - 0.30 MG/DL) 0.30 Indirect Bilirubin (MG/DL) 0.30 AST (15 - 37 IUnit/L) 58 H ALT (30 - 65 IUnit/L) 288 H Total Alk Phosphatase (20 - 125 89 IUnit/L) Total Protein (6.4 - 8.2 g/dL) 5.9 L Albumin (3.4 - 5.0 g/dL) 3.10 L 10/01 10/01 1720 1216 Chemistry POC Glucose (70 - 110 MG/DL) 163 H 205 H Laboratory Tests 10/02 0314 Hematology WBC (4.5 - 11.0 x10 3/uL) 7.1 RBC (4.00 - 5.60 x10 6/uL) 2.71 L Hgb (12.5 - 16.9 g/dL) 8.6 L Hct (37.5 - 50.7 %) 25.6 L MCV (81.0 - 99.0 fL) 94.5 MCH (27.0 - 33.0 pg) 31.7 MCHC (33.0 - 37.0 g/dL) 33.6 RDW (11.5 - 14.5 %) 14.5 Plt Count (150 - 400 x10 3/uL) 245 MPV (7.0 - 9.0 fL) 10.6 H Neut % (Auto) (56.0 - 77.0 %) 72.4 Lymph % (Auto) (14.0 - 32.0 %) 13.3 L Isabella % (Auto) (4.8 - 9.0 %) 10.3 H Eos % (Auto) (0.3 - 3.7 %) 1.1 Baso % (Auto) (0.0 - 2.0 %) 0.1 Neut # (Auto) (2.0 - 7.6 x10 3/uL) 5.11 Lymph # (Auto) (1.0 - 3.8 x10 3/uL) 0.94 L Isabella # (Auto) (0.1 - 0.8 x10 3/uL) 0.73 Eos # (Auto) (0.0 - 0.2 x10 3/uL) 0.08 Baso # (Auto) (0.0 - 0.2 x10 3/uL) 0.01 Abs Immat Gran (auto) (0.00 - 0.03 x10 3/uL) 0. 20 H Add Manual Diff NO Immature Gran % (0.0 - 2.0 %) 2.8 H Nucleated RBC % (0 - 0 %) 0.8 H Nucleated RBCs # (Man) (0.0 - 0.1 x10 3/uL) 0.0 6 Radiology data: Recent Impressions: RADIOLOGY - XR CHEST 1 V 10/02 0740 Report Impression - Status: SIGNED Entered: 10/02/2022 0829 IMPRESSION: Lungs slightly improved. Impression By: LisaABPriya Johns M.D. Diagnosis, Assessment Plan Free Text A P: 1. JOSE ARMANDO likely prerenal insufficiency. Creatinine is stable at 1.5>1.3>1.1 this morning. We will hold off on any La six for now. less swollen today, dc IV fluid. Encourage p.o. fluid intake. Currently on room air. Repeat echo after surgery with better EF. 2. Status post CABG and AVR CT surgery following 3. Diabetes type 2 per primary team 4. Anemia PRBC transfusion if hemoglobin less th an 7. No overt GI bleed. Echocardiogram on 09/28/2022 1. Left ventricle: Systolic function is mildly r educed. The estimated ejection fraction is 40-44%. 2. Aortic valve: There is a bioprosthetic valve. Consultants: cardiovascular surgery Electronically Signed by Arin Rossi MD on 10/02 at 2335 [facility] #:[id number] END OF REPORT 2022-10-02 09:02:00-00:00 [id number] [address] PATIENT NAME: MONICA BECK ADMIT DATE: 0 09/24/22 ACCOUNT NO: [id number] ROOM NO: [facility] AGE: 82 REPORT TYPE: eELECTROCARDIOGRAM REPORT SEX: M ADMITTING PHYSICIAN:Kathya Maria MD ATTENDING PHYSICIAN:Kathya Maria MD Order: [id number] Test Reason : rhythm change Test Date/Time Stamp: MonOct 02 2022 09:02:43 Blood Pressure : / mmHG Vent. Rate : 116 BPM Atrial Rate : 000 BPM P-R Int : 000 ms QRS Dur : 154 ms QT Int : 382 ms P-R-T Axes : 000 -31 127 degre es QTc Int : 530 ms Wide QRS rhythm tachycardia Left axis deviation Left bundle branch block Abnormal ECG Confirmed by ELAINE VO MD ([id number]) on 10/04/19 10:07:23 AM Referred By: Neeru Maria Confirmed by:ELAINE FENG MD at 1007 PATIENT NAME: MONICA BECK ACCOUNT #: [id number] 2022-10-02 08:49:00-00:00 [facility]L [facility] Hospitalist Progress Note REPORT#:[id number] REPORT STATUS: Signed DATE:10/02/22 TIME: 0849 PATIENT: MONICA BECK UNIT #: [id number] ROOM/BED: [place] [id number] : 42 AGE: 82 SEX: M ATTEND: Nicolasa Maria MD ADM AUTHOR: Charlotte Fitzpatrick MD * ALL edits or amendments must be made on the [employer]/computer document * Subjective Chief complaint: no acute change Review of Systems All systems rev neg: except as noted Objective General VS/I O: Vital Signs: Date Time Temp Pulse Resp B/P B/P Pulse O2 O2 F low FiO2 Mean Ox Delivery Rate 10/02 0600 70 22 125/60 87 96 10/02 0401 79 19 125/57 78 99 10/02 0301 68 16 122/56 81 99 10/02 0201 87 23 129/63 91 97 10/02 0101 85 23 85/53 66 97 10/02 0001 83 23 133/70 96 96 10/01 2301 100 41 125/74 96 91 10/01 2200 76 22 116/58 81 94 10/01 2100 80 22 127/60 86 95 10/02 1999 98.2 94 26 96/55 72 100 10/01 1945 97 Room air 10/01 1900 95 25 121/81 97 94 10/01 1700 69 22 152/67 96 98 10/01 1600 74 24 148/66 95 98 10/01 1501 67 22 146/64 92 97 10/01 1500 98 Room air 10/01 1401 64 19 121/56 81 95 10/01 1300 67 23 144/65 93 99 10/01 1200 69 21 149/65 93 93 10/01 1143 97 Room air 21 10/01 1100 68 139/63 91 94 10/01 1000 67 22 135/63 91 96 10/01 0900 67 15 134/63 91 97 24 hour I O ending at 0700: 10/02 0700 10/01 1900 Intake Total 240 594 Output Total 1325 400 Balance -1085 194 Intake, Oral 240 236 Intake, Oral 358 Supplement Number 1 2 Bowel Movements Number Voids 2 Output, Urine 1325 400 PATIENT WEIGHT: Weight (lb): 180 Weight (oz): 8.94 Weight (kg): 81.900 Medications: Active Meds + DC'd Last 24 Hrs Fentanyl Citrate (SUBLIMAZE) 50 MCG Q6H PRN PRN IV Insulin Glargine (Semglee) 15 UNIT BID SUBQ Insulin Glargine (Semglee) 10 UNIT BID SUBQ (DC) Insulin Human Lispro (HUMALOG) 0 Q6HR SUBQ Ipratropium [place] (ATROVENT) 500 MCG RTQ2H PRN PRN INH Cyanocobalamin (Vitamin B-12 500 mcg tab) 500 MC G DAILY PO Ferrous Sulfate (FERROUS SULFATE) 325 MG DAILY P O Bisacodyl (DULCOLAX) 10 MG ONCE PRN RECTAL Amiodarone HCl (AMIODARONE HCL) 450 MG ASDIR IV (CKD) Dextrose/Water (D5%W NON-DEHP) 250 ML Mupirocin (BACTROBAN 2% 22 GM OINTMENT) 1 APPLIC BID NASAL Dopamine HCl/Dextrose (DOPamine 400MG/D5W 250ML) 250 ML ASDIR IV Clopidogrel Bisulfate (Plavix) 75 MG DAILY PO Polyethylene Glycol (MIRALAX) 17 GM DAILY PO Pantoprazole (PROTONIX) 40 MG DAILY@0600 PO Aspirin (ASPIRIN) 81 MG DAILY PO Amiodarone HCl (CORDARONE) 200 MG TID PO Docusate Sodium (COLACE) 100 MG BID PO Gabapentin (NEURONTIN) 200 MG BID PO (DC) Melatonin (Melatonin) 6 MG BEDTIME PO Metoprolol Tartrate (LOPRESSOR) 12.5 MG Q12HR PO Sennosides (Senna Lax 8.6 MG TABLET) 17.2 MG BED TIME PO Fentanyl Citrate (SUBLIMAZE) 50 MCG Q3H PRN PRN IV (DC) Tramadol HCl (ULTRAM) 50 MG Q4H PRN PRN PO (DC) Tramadol HCl (ULTRAM) 25 MG QID PRN PO (DC) Calcium Chloride (CALCIUM CHLORIDE) 1 GM ASDIR P RN IV Dextrose/Water (DEXTROSE 10% IN WATER) 125 ML DIR PRN IV (CKD) Dextrose/Water (DEXTROSE 10% IN WATER) 250 ML DIR PRN IV (CKD) Epinephrine (ADRENALIN CHLORIDE) 4 MG ASDIR IV Dextrose/Water (DEXTROSE 5% WATER) 246 ML Glucagon (GLUCAGON) 1 MG ASDIR PRN IM Magnesium Sulfate (MAGNESIUM SULFATE 4GM/SWFI 10 0ML) 100 ML ASDIR PRN IV Magnesium Sulfate (MAGNESIUM SULFATE 2GM/SWFI 50 ML) 50 ML ASDIR PRN IV Magnesium Sulfate/Dextrose (MAGNESIUM SULFATE 1G M/D5W 100ML) 100 ML ASDIR PRN IV Nitroglycerin/Dextrose (NITROGLYCERIN 50,000MCG/ D5W 250ML) 250 ML ASDIR IV Norepinephrine Bitartrate (NOREPINEPHRINE 8 MG/N S 250 ML) 250 ML TITRATE IV Ondansetron HCl (ZOFRAN) 4 MG Q6H PRN PRN IV Potassium Chloride (KCL 20MEQ/SWFI 100ML) 100 ML ASDIR PRN IV Sodium Bicarbonate (SODIUM BICARBONATE) 50 MEQ A SDIR PRN IV Sodium Chloride (SODIUM CHLORIDE 0.9%) 250 ML Q2 4H IV Dietitian nutrition assessment The data set between the solid lines has been im ported from the dietitian's assessment. BMI Calculated: 31.0 Nutrition related diagnosis: Nutrition diagnosis details: Nutrition problem: Increased nutrient needs Nutrition etiology: Acute illness Nutrition signs and symptoms: HEALING NEEDS S/P SURGERY Nutrition prescription: 1. RECOMMEND CONTINUE CA RDIAC DIET. HONOR FOOD PREFERENCES APPROPRIATE WITH DIET ORDER. 2. PROVIDE GLUCERNA TID WITH MEALS. 3. HEALTHY HEART DIET EDUCATION PRIOR TO DISCHARGE. 4. MONITOR PO, WT, LABS, BM. Dietitian name: Fawn Stewart, DIET Assessment completed: 09/27/22 Physical Exam General appearance: alert, awake, oriented Head/Eyes: CHISHOLM HAIR AND ADAMES WEARING EYEGLASSE S Neck: no JVD Cardiovascular: normal heart sounds, regular rat e rhythm Respiratory: aerating well, clear to auscultatio n Abdomen: non-tender, normal bowel sounds, soft Extremities: no edema Musculoskeletal: normal inspection Neuro/RN ELIGIBILITY: no motor deficits Skin: normal color Psychiatry: normal affect, normal judgment/insig ht Results Findings/Data: Laboratory Tests 10/02 10/02 10/02 10/02 10/01 0753 0633 0314 0011 2 Chemistry Sodium (134 - 147 mEq/L) 140 Potassium (3.4 - 5.0 mEq/L) 4.2 Chloride (100 - 108 mEq/L) 106 Carbon Dioxide (21 - 33 mEq/l) 30 Anion Gap (0 - 20) 8 BUN (7 - 18 mg/dL) 16 Creatinine (0.6 - 1.3 mg/dL) 1.1 Glomerular Filtr Rate (70 - 80) 67.9 L Glucose (70 - 110 mg/dL) 155 H POC Glucose (70 - 110 MG/DL) 149 H 137 H 223 H 166 H Calcium (8.0 - 10.5 mg/dL) 9.1 Magnesium (1.80 - 2.40 mg/dL) 1.90 Total Bilirubin (0.0 - 1.0 mg/dL) 0.60 Direct Bilirubin (0.0 - 0.30 MG/DL) 0.30 Indirect Bilirubin (MG/DL) 0.30 AST (15 - 37 IUnit/L) 58 H ALT (30 - 65 IUnit/L) 288 H Total Alk Phosphatase (20 - 125 IUnit/L) 89 Total Protein (6.4 - 8.2 g/dL) 5.9 L Albumin (3.4 - 5.0 g/dL) 3.10 L 10/01 10/01 1720 1216 Chemistry POC Glucose (70 - 110 MG/DL) 163 H 205 H Laboratory Tests 10/02 0314 Hematology WBC (4.5 - 11.0 x10 3/uL) 7.1 RBC (4.00 - 5.60 x10 6/uL) 2.71 L Hgb (12.5 - 16.9 g/dL) 8.6 L Hct (37.5 - 50.7 %) 25.6 L MCV (81.0 - 99.0 fL) 94.5 MCH (27.0 - 33.0 pg) 31.7 MCHC (33.0 - 37.0 g/dL) 33.6 RDW (11.5 - 14.5 %) 14.5 Plt Count (150 - 400 x10 3/uL) 245 MPV (7.0 - 9.0 fL) 10.6 H Neut % (Auto) (56.0 - 77.0 %) 72.4 Lymph % (Auto) (14.0 - 32.0 %) 13.3 L Isabella % (Auto) (4.8 - 9.0 %) 10.3 H Eos % (Auto) (0.3 - 3.7 %) 1.1 Baso % (Auto) (0.0 - 2.0 %) 0.1 Neut # (Auto) (2.0 - 7.6 x10 3/uL) 5.11 Lymph # (Auto) (1.0 - 3.8 x10 3/uL) 0.94 L Isabella # (Auto) (0.1 - 0.8 x10 3/uL) 0.73 Eos # (Auto) (0.0 - 0.2 x10 3/uL) 0.08 Baso # (Auto) (0.0 - 0.2 x10 3/uL) 0.01 Abs Immat Gran (auto) (0.00 - 0.03 x10 3/uL) 0. 20 H Add Manual Diff NO Immature Gran % (0.0 - 2.0 %) 2.8 H Nucleated RBC % (0 - 0 %) 0.8 H Nucleated RBCs # (Man) (0.0 - 0.1 x10 3/uL) 0.0 6 Radiology data: Recent Impressions: RADIOLOGY - XR CHEST 1 V 10/02 0740 Report Impression - Status: SIGNED Entered: 10/02/2022 1809 IMPRESSION: Lungs slightly improved. Impression By: Juancho - Varghese Johns M.D. Free Text Obj Notes Free Text Obj Notes: General appearance: alert, awake, oriented Head/Eyes: atraumatic, normocephalic ENT: moist mucosal membranes, normal pharynx Neck: non-tender, supple/no meningismus, no JVD Cardiovascular: normal capillary refill, normal heart sounds, regular rate rhythm Respiratory: aerating well, clear to auscultatio n, symmetric expansion Abdomen: non-tender, normal bowel sounds, soft, no distention Extremities: no clubbing, no cyanosis, no edema Neuro/RN ELIGIBILITY: alert, oriented X 3, CNII-XII intact Skin: dry, intact Psychiatry: normal affect, normal judgment/insig ht Diagnosis, Assessment Plan Problem List/A P: 1. CAD (coronary artery disease) 2. Severe aortic stenosis 3. S/P CABG x 2 4. S/P AVR Consultants: cardiovascular surgery Free Text DxA P Notes Free text DxA P notes: NSTEMI, 3-V CAD, SEVERE , S/P CABGX2, S/P AVR, S/P LEYDI ISOLATION - CARD/CTS SEEN, PLAN PER CTS, ON CT/KING, REPEAT ECHO EF 40-45% Continue aspirin 81 mg daily Atorvastatin 80 mg at bedtime ?pneumoperitoneum? 09/29- as per CXR report. defer to critical care for further evaluation. ANEMIA OF SURGICAL BLOOD LOSS - HGB FROM 14 TO 7 .2, TX PRN Pulmonary edema due to aortic stenosis - COMPENS ATED, ECHO EF 45-50%, DD Chest x-ray with bibasilar opacities BNP elevated at 3114 Hypertension - STABLE Resume home lisinopril 10 mg p.o. daily Hydralazine 10 mg IV every 6 hours as n eeded. Blood pressure greater than 170 Type 2 diabetes mellitus - GOOD, CONT ISS, HGBA1 C 6.8%, LDL 40 Hold home metformin, empagliflozin, and semaglu tide Low-dose sliding scale insulin before meals and at bedtime Hyperlipidemia LDL 40, CONT Atorvastatin 80 mg a t bedtime DVT prophylaxis: Heparin drip, cardiology protoc ol Diet: Carbohydrate consistent CODE STATUS: DO NOT RESUSCITATE Patient reports he has an advanced directive His medical power of banking attorney is son Guille Francois t 09/29- POD #3 AVR and CABG x2 . ?pneumoperitoneuam on CXR. awaiting critical care recs. 10/01- POD 5, central line DC'd, ivf's stopped, kidney function stable, king cath remains x1 more day 10/02: Plan to transfer to [facility] at 1832 RPT #:[id number] END OF REPORT 2022-10-02 08:27:00-00:00 [facility]L [facility] Cardiology Progress Note REPORT#:[id number] REPORT STATUS: Signed DATE:10/02/22 TIME: 826 PATIENT: MONICA BECK UNIT #: [id number] ROOM/BED: [place] [id number] : 42 AGE: 82 SEX: M ATTEND: Nicolasa Maria MD ADM AUTHOR: Clarisse Gotti NP * ALL edits or amendments must be made on the [employer]/computer document * Subjective Chief complaint: Tired, wants to go back to bed. Patient reports: No: chest pain, palpitations, shortness of breat h. Nursing reports: No: complaints. Comments: Patient is on RA, sitting in chair, appears tire d. Telemetry shows accelerated junctional vs AFLT - will do EKG. Objective General VS/I O: 24 hour I O ending at 0700: 10/01 1900 10/02 0700 Intake Total 594 240 Output Total 400 1325 Balance 194 -1085 Intake, Oral 236 240 Intake, Oral 358 Supplement Number 2 1 Bowel Movements Number Voids 2 Output, Urine 400 1325 Vital Signs: Date Time Temp Pulse Resp B/P B/P Pulse O2 O2 F low FiO2 Mean Ox Delivery Rate 10/02 0600 70 22 125/60 87 96 10/02 0401 79 19 125/57 78 99 10/02 0301 68 16 122/56 81 99 10/02 0201 87 23 129/63 91 97 10/02 0101 85 23 85/53 66 97 10/02 0001 83 23 133/70 96 96 10/01 2301 100 41 125/74 96 91 10/01 2200 76 22 116/58 81 94 10/01 2100 80 22 127/60 86 95 10/01 2000 98.2 94 26 96/55 72 100 10/01 1945 97 Room air 10/01 1900 95 25 121/81 97 94 10/01 1700 69 22 152/67 96 98 10/01 1600 74 24 148/66 95 98 10/01 1501 67 22 146/64 92 97 10/01 1500 98 Room air 21 10/01 1401 64 19 121/56 81 95 10/01 1300 67 23 144/65 93 99 10/01 1200 69 21 149/65 93 93 PATIENT WEIGHT: Weight (lb): 180 Weight (oz): 8.94 Weight (kg): 81.900 Medications: Active Meds + DC'd Last 24 Hrs Fentanyl Citrate (SUBLIMAZE) 50 MCG Q6H PRN PRN IV Insulin Glargine (Semglee) 15 UNIT BID SUBQ Insulin Glargine (Semglee) 10 UNIT BID SUBQ (DC) Insulin Human Lispro (HUMALOG) 0 Q6HR SUBQ Ipratropium [place] (ATROVENT) 500 MCG RTQ2H PRN PRN INH Cyanocobalamin (Vitamin B-12 500 mcg tab) 500 MC G DAILY PO Ferrous Sulfate (FERROUS SULFATE) 325 MG DAILY P O Bisacodyl (DULCOLAX) 10 MG ONCE PRN RECTAL Amiodarone HCl (AMIODARONE HCL) 450 MG ASDIR IV (CKD) Dextrose/Water (D5%W NON-DEHP) 250 ML Mupirocin (BACTROBAN 2% 22 GM OINTMENT) 1 APPLIC BID NASAL Dopamine HCl/Dextrose (DOPamine 400MG/D5W 250ML) 250 ML ASDIR IV Clopidogrel Bisulfate (Plavix) 75 MG DAILY PO Polyethylene Glycol (MIRALAX) 17 GM DAILY PO Pantoprazole (PROTONIX) 40 MG DAILY@0600 PO Aspirin (ASPIRIN) 81 MG DAILY PO Amiodarone HCl (CORDARONE) 200 MG TID PO Docusate Sodium (COLACE) 100 MG BID PO Gabapentin (NEURONTIN) 200 MG BID PO (DC) Melatonin (Melatonin) 6 MG BEDTIME PO Metoprolol Tartrate (LOPRESSOR) 12.5 MG Q12HR PO Sennosides (Senna Lax 8.6 MG TABLET) 17.2 MG BED TIME PO Fentanyl Citrate (SUBLIMAZE) 50 MCG Q3H PRN PRN IV (DC) Tramadol HCl (ULTRAM) 50 MG Q4H PRN PRN PO (DC) Tramadol HCl (ULTRAM) 25 MG QID PRN PO (DC) Calcium Chloride (CALCIUM CHLORIDE) 1 GM ASDIR P RN IV Dextrose/Water (DEXTROSE 10% IN WATER) 125 ML DIR PRN IV (CKD) Dextrose/Water (DEXTROSE 10% IN WATER) 250 ML DIR PRN IV (CKD) Epinephrine (ADRENALIN CHLORIDE) 4 MG ASDIR IV Dextrose/Water (DEXTROSE 5% WATER) 246 ML Glucagon (GLUCAGON) 1 MG ASDIR PRN IM Magnesium Sulfate (MAGNESIUM SULFATE 4GM/SWFI 10 0ML) 100 ML ASDIR PRN IV Magnesium Sulfate (MAGNESIUM SULFATE 2GM/SWFI 50 ML) 50 ML ASDIR PRN IV Magnesium Sulfate/Dextrose (MAGNESIUM SULFATE 1G M/D5W 100ML) 100 ML ASDIR PRN IV Nitroglycerin/Dextrose (NITROGLYCERIN 50,000MCG/ D5W 250ML) 250 ML ASDIR IV Norepinephrine Bitartrate (NOREPINEPHRINE 8 MG/N S 250 ML) 250 ML TITRATE IV Ondansetron HCl (ZOFRAN) 4 MG Q6H PRN PRN IV Potassium Chloride (KCL 20MEQ/SWFI 100ML) 100 ML ASDIR PRN IV Sodium Bicarbonate (SODIUM BICARBONATE) 50 MEQ A SDIR PRN IV Sodium Chloride (SODIUM CHLORIDE 0.9%) 250 ML Q2 4H IV Status post: CABG x 2. Physical Exam General appearance: alert, awake, no acute distr ess, mental status normal, no respiratory distress Head/Eyes: atraumatic ENT: moist mucosal membranes Neck: non-tender, no JVD Cardiovascular: CV assessment: regular rate and rhythm Respiratory: decreased breath sounds, on oxygen, no distress Abdomen: soft, non-tender, normal bowel sounds, no distention Genitourinary: urinary catheter, urine Upper extremity: UE assessment: normal temperature Lower extremity: LE assessment: no edema Musculoskeletal: normal inspection Neuro/RN ELIGIBILITY: alert, oriented X 3, normal speech Skin: dry Psychiatry: normal affect, normal mood Results Findings/Data: Laboratory Tests 10/01 10/01 10/01 10/02 10/02 1216 1720 2059 0011 0314 Chemistry Sodium (134 - 147 mEq/L) 140 Potassium (3.4 - 5.0 mEq/L) 4.2 Chloride (100 - 108 mEq/L) 106 Carbon Dioxide (21 - 33 mEq/l) 30 Anion Gap (0 - 20) 8 BUN (7 - 18 mg/dL) 16 Creatinine (0.6 - 1.3 mg/dL) 1.1 Glomerular Filtr Rate (70 - 80) 67.9 L Glucose (70 - 110 mg/dL) 155 H POC Glucose (70 - 110 MG/DL) 205 H 163 H 166 H 223 H Calcium (8.0 - 10.5 mg/dL) 9.1 Magnesium (1.80 - 2.40 mg/dL) 1.90 Total Bilirubin (0.0 - 1.0 mg/dL) 0.60 Direct Bilirubin (0.0 - 0.30 MG/DL) 0.30 Indirect Bilirubin (MG/DL) 0.30 AST (15 - 37 IUnit/L) 58 H ALT (30 - 65 IUnit/L) 288 H Total Alk Phosphatase (20 - 125 89 IUnit/L) Total Protein (6.4 - 8.2 g/dL) 5.9 L Albumin (3.4 - 5.0 g/dL) 3.10 L 10/02 10/02 0633 0753 Chemistry POC Glucose (70 - 110 MG/DL) 137 H 149 H Laboratory Tests 10/02 0314 Hematology WBC (4.5 - 11.0 x10 3/uL) 7.1 RBC (4.00 - 5.60 x10 6/uL) 2.71 L Hgb (12.5 - 16.9 g/dL) 8.6 L Hct (37.5 - 50.7 %) 25.6 L MCV (81.0 - 99.0 fL) 94.5 MCH (27.0 - 33.0 pg) 31.7 MCHC (33.0 - 37.0 g/dL) 33.6 RDW (11.5 - 14.5 %) 14.5 Plt Count (150 - 400 x10 3/uL) 245 MPV (7.0 - 9.0 fL) 10.6 H Neut % (Auto) (56.0 - 77.0 %) 72.4 Lymph % (Auto) (14.0 - 32.0 %) 13.3 L Isabella % (Auto) (4.8 - 9.0 %) 10.3 H Eos % (Auto) (0.3 - 3.7 %) 1.1 Baso % (Auto) (0.0 - 2.0 %) 0.1 Neut # (Auto) (2.0 - 7.6 x10 3/uL) 5.11 Lymph # (Auto) (1.0 - 3.8 x10 3/uL) 0.94 L Isabella # (Auto) (0.1 - 0.8 x10 3/uL) 0.73 Eos # (Auto) (0.0 - 0.2 x10 3/uL) 0.08 Baso # (Auto) (0.0 - 0.2 x10 3/uL) 0.01 Abs Immat Gran (auto) (0.00 - 0.03 x10 3/uL) 0. 20 H Add Manual Diff NO Immature Gran % (0.0 - 2.0 %) 2.8 H Nucleated RBC % (0 - 0 %) 0.8 H Nucleated RBCs # (Man) (0.0 - 0.1 x10 3/uL) 0.0 6 Laboratory Tests 10/02 0314 Chemistry Magnesium (1.80 - 2.40 mg/dL) 1.90 Radiology data: Recent Impressions: RADIOLOGY - XR CHEST 1 V 10/02 0740 Report Impression - Status: SIGNED Entered: 10/02/2022 7242 IMPRESSION: Lungs slightly improved. Impression By: Juancho - Varghese Johns M.D. Results: labs reviewed, nisreen l signs reviewed, vital signs stable, EKG personally reviewed, rhythm personally rev'd, x-ray persona lly reviewed, current med profile rev'd Telemetry Interpretation: accelerated junctional. Diagnosis, Assessment Plan Problem List/A P: 1. S/P CABG x 2 2. S/P AVR 3. CAD (coronary artery disease) 4. Severe aortic stenosis Consultants: cardiovascular surgery Plan discussed with: patient, nurse Free Text DxA P Notes Free Text DxA P Notes: 82 YO male with MHx of DM, HLD, . He presented to [facility] with CP, found to have NSTEMI. LHC ensued that showed sev ere multivessel CAD. He is transferred to us and underwent CABG and AVR on 09/26/22. 1. Multivessel CAD S/p CABG x2 (NAIR to LAD and SVG to OM), ALAA, a nd SAVR on DAPT, BB, statin hemodynamics stable. post-op care per CTS Positive fluid balance, diurese per CTS Edema improving. 2. s/p SAVR continue DAPT 3. Hypertension BP marginal this am - likely d/t rhythm change. continue BB 4. Diabetes mellitus per critical care 5. ELevated LFT. AST/ALT trending down. Reviewed EKG at bedside - accelerated Junctional , HR 117. Continue monitor. Electronically Signed by Clarisse Gotti NP on at 1148 Electronically Signed by Ana Ramsey MD on at 1851 RPT #:[id number] END OF REPORT 2022-10-02 07:37:00-00:00 [facility]L [facility] Cardiothoracic Surgery Prog REPORT#:[id number] REPORT STATUS: Signed DATE:10/02/22 TIME: 736 PATIENT: MONICA BECK UNIT #: [id number] ROOM/BED: [place] [id number] : 42 AGE: 82 SEX: M ATTEND: Nicolasa Maria MD ADM AUTHOR: Analilia Erwin Physic * ALL edits or amendments must be made on the [employer]/computer document * General Post-op: day 6 (1) Status post: 09/27/22 ROCEDURES: 1. Aortic valve replacement (25 Inspiris valve). 2. Coronary artery bypass graft surgery x2 (NAIR to LAD, saphenous vein to marginal). 3. Amputation of left atrial appendage. 4. Endoscopic vein harvest (right greater saphen ous vein). 5. Posterior pericardiotomy. Subjective Chief complaint: POst op AVR Review of Systems Constitutional: Denies: chills, fever, malaise. Allergy/Immun: Denies: allergic reaction. Respiratory: Denies: SOB. Cardiovascular: Denies: chest pain, palpitations. : Denies: dysuria, hematuria. Heme: Denies: bleeding. Neuro: Denies: dizziness, headache, vision change. All systems rev neg: except as marked Objective General VS/I O Last Documented: Result Date Time Pulse Ox 96 10/02 0600 B/P 125/60 10/02 0600 B/P Mean 87 10/02 0600 Pulse 70 10/02 0600 Resp 22 10/02 0600 Temp 98.2 10/01 2000 O2 Delivery Room air 10/01 1945 FiO2 21 10/01 1500 O2 Flow Rate 2 09/29 0809 24 hour I O ending at 0700: 10/02 0700 10/01 1900 Intake Total 240 594 Output Total 1325 400 Balance -1085 194 Intake, Oral 240 236 Intake, Oral 358 Supplement Number 1 2 Bowel Movements Number Voids 2 Output, Urine 1325 400 PATIENT WEIGHT: Weight (lb): 180 Weight (oz): 8.94 Weight (kg): 81.900 Physical Exam General appearance: alert, awake, oriented Wound/incision: Location: Sternum dry, No oozing HEENT: anicteric, mucosal membranes moist Neck: non-tender, supple/no meningismus Cardiovascular: normal heart sounds, a fib Murmur: Systolic 3/6 Respiratory: aerating well, symmetric expansion, no distress Abdomen: soft, non-tender, no distention Extremities: moves all Neuro/RN ELIGIBILITY: alert, oriented X 3, normal speech, n o motor deficits Psychiatry: normal affect, normal mood Diagnosis, Assessment Plan Hospital course to date: Mr Beck a very pleasant 82-year-old male with past medical history of diabetes, hyperlipidemia, restless leg syndrome aortic valve stenosis who presented to [facility] complaining of substernal chest pain across the anterior chest positive for n ausea and diaphoresis. CT chest showed small to moderate bilateral pleural effusions, ascending aorta measuring 4.2 cm. Cardiac enzymes elevated pat ient deemed non-STEMI. He was taken to the [facility] coronary angiogram revealed severe multivessel coronary artery disease. Patient started on heparin drip and transferred to [facility] for possible CABG and AVR. PLAN Coronary angiogram images will be uploaded in [employer] system Dr Maria explained to the patient his family t he angiogram findings and echocardiogram findings and recommended coronary artery bypass graft and aortic valve replacement. The surgery, risks involved, STS score, benefits, complications and alternatives were expl ained to the patient including risk of stroke, respiratory failure, need for tracheosto my, renal failure requiring dialysis, bleeding, infection. Patient acknowled ged understanding and is willing to proceed Initiate preop work-up for AVR Carotid ultrasound BLE venous doppler for vein mapping and marking UA to rule out UTI We will tentatively schedule patient for AVR on 09/26 Preop assessment ongoing Denies chest pain, no shortness of breath Remains on heparin drip Carotid ultrasound showed less than 50% stenosis bilaterally Noncontrasted CT chest performed at [facility] reviewed with Dr. Maria. Images will be uploaded in our system. Coronary angiogram images uploaded in [employer] o Plan for CABG and AVR tomorr ow morning. The surgery, risks involved, STS score, benefits, complications and alternatives were ex plained to the patient. He acknowledged understanding and is willing to pro ceed. Patient changed code status to FULL CODE as he i s going for surgery N.p.o. after midnight 09/27/22 POD 1 AAOx3 Respiratory: 3 l NC, wwean as tolerated. Encourage IS, Deep Breathing, CXR reviewed Cardiac: remains sinus rhtyhm. Pacing wires on standby GI: Continue Bowel regimen, no bm yet UO: 1200 Continue PT/OT Disposition: DVT prophylaxis Labs reveiwed- replace electrolytes as needed Patient seen and examined by Dr. Maria. Plan o f care discussed with multidisciplinary team 09/28/22 POD 2 AAOx3 Respiratory: On 2 L NC, 100%, wean as tolerated. Encourage IS, Deep Breathing, CXR reviewed, chest tube in place continue to d rain 300 cc Cardiac: Atrial fibrillation today. Amio bolus g iven, hypotension when moving to the chair. HGB trending down, Will repeat this Am. GI: Passing gas, continue Bowel regimen : King in place, UO: 425 Continue PT/OT Disposition: Pending course DVT prophylaxis Labs reveiwed- replace electrolytes as needed Patient seen and examined by Dr. Maria. Plan o f care discussed with multidisciplinary team 09/29/22 POD 3 AAOx3 Respiratory: On room air, 99% Encourage IS, Deep Breathing, CXR reviewed, CT in place, Still outputs high- continue to monitor. Cardiac: Sinus rhtyhm. Pacer on standby. HGB trending down, Will monitor and repeat. GI: Passing gas, continue Bowel regimen, elevati on liver enzymes likely from amiodarone, will hold Amio for now. : King in place, UO: Urine output low, will consult renal. [place] was started on dopamine yesterday subsequently went into A-fib RVR. Amio bolus was given Continue PT/OT Disposition: Pending course DVT prophylaxis Labs reveiwed- replace electrolytes as needed Patient seen and examined by Dr. Maria. Plan o f care discussed with multidisciplinary team 09/30/22 POD 5 AAOx3 Respiratory: On room air, 99% Encourage IS, Deep Breathing, CXR reviewed, Chest tubes out Cardiac: Sinus rhtyhm. Pacer on standby. HGB trending down, Will monitor and repeat. GI: Passing gas, continue Bowel regimen, elevati on liver enzymes likely from amiodarone, will hold Amio for now. : King in place, need 1 more day for urine ou tput. UO: Improving IV fluids stopped, renal f ollowing creatinine improving 1.3 from 1.5 today. Continue PT/OT Disposition: Pending course DVT prophylaxis Labs reveiwed- replace electrolytes as needed Patient seen and examined by Dr. Maria. Plan o f care discussed with multidisciplinary team LUIS FERNANDO central line 10/01/22 POD 6 AAOx3 Respiratory: On room air, 99% Encourage IS, Deep Breathing, CXR reviewed, Chest tubes out Cardiac: Sinus rhtyhm. Pacer on standby. HGB trending down, Will monitor and repeat. GI: Small BM yest- continue bowel regimen, Liver enzymes trending down. On p.o. Amio : LUIS FERNANDO king today, Renal function improing 1.3- ->1.1 UO:1800- off IV fluids Continue PT/OT Disposition: Pending course- patient wants to go home with DVT prophylaxis Labs reveiwed- replace electrolytes as needed Patient seen and examined by Dr. Maria. Plan o f care discussed with multidisciplinary team Okay to CVN 1 today 10/02/22 POD 6 AAOx3 Respiratory: On room air, 99% Encourage IS, Deep Breathing, CXR reviewed, Chest tubes out Cardiac: Patient went into atrial fibrillation t his a.m. Converted with amnio bolus and drip.. Pacer on standby. Hemoglobin stable 8.6 GI: Small BM yest- continue bowel regimen, Liver enzymes trending down. On p.o. Amio : DC king today, Renal function improing 1.3- ->1.1 UO:1725- off IV fluids Continue PT/OT Disposition: SNF-patient unable to care for him at home, Case management consulted. DVT prophylaxis Labs reveiwed- replace electrolytes as needed Patient seen and examined by Dr. Maria. Plan o f care discussed with multidisciplinary team Okay to CVN 1 today Consultants: cardiovascular surgery at 1255 at 0245 RPT #:[id number] END OF REPORT 2022-10-01 16:41:00-00:00 HCACL [facility] Nephrology Progress Note REPORT#:[id number] REPORT STATUS: Signed DATE:10/01/22 TIME: 1641 PATIENT: MONICA BECK UNIT #: [id number] ROOM/BED: [place] [id number] : 42 AGE: 82 SEX: M ATTEND: Nicolasa Maria MD ADM AUTHOR: Arin Rossi MD * ALL edits or amendments must be made on the [employer]/computer document * Objective General VS/I O: Vital Signs: Date Time Temp Pulse Resp B/P B/P Pulse O2 O2 F low FiO2 Mean Ox Delivery Rate 10/01 1501 67 22 146/64 92 97 10/01 1401 64 19 121/56 81 95 10/01 1300 67 23 144/65 93 99 10/01 1200 69 21 149/65 93 93 10/01 1143 97 Room air 21 10/01 1100 68 139/63 91 94 10/01 1000 67 22 135/63 91 96 10/01 0900 67 15 134/63 91 97 10/01 0829 76 25 130/61 88 98 10/01 0804 99 Room air 21 10/01 0801 67 25 114/65 81 92 10/01 0607 66 22 126/56 83 87 10/01 0500 66 26 127/61 88 96 10/01 0400 63 17 126/60 86 95 09/30 2300 65 25 117/58 79 96 09/30 2235 65 20 127/60 86 96 09/30 2100 68 23 138/65 93 98 09/30 2000 66 21 151/68 98 97 09/30 1945 Room air 96 09/30 1900 64 15 136/61 88 95 09/30 1700 72 24 127/60 87 90 24 hour I O ending at 0700: 10/01 0700 09/30 1900 Intake Total 240 780.00 Output Total 1655 900 Balance -1415 -120.00 Intake, IV 300.00 Intake, Oral 240 480 Output, Urine 1655 900 PATIENT WEIGHT: Weight (lb): 180 Weight (oz): 8.94 Weight (kg): 81.900 Medications Active Meds + DC'd Last 24 Hrs Insulin Glargine (Semglee) 15 UNIT BID SUBQ Insulin Glargine (Semglee) 10 UNIT BID SUBQ (DC) Insulin Human Lispro (HUMALOG) 0 Q6HR SUBQ Ipratropium [place] (ATROVENT) 500 MCG RTQ2H PRN PRN INH Cyanocobalamin (Vitamin B-12 500 mcg tab) 500 MC G DAILY PO Ferrous Sulfate (FERROUS SULFATE) 325 MG DAILY P O Bisacodyl (DULCOLAX) 10 MG ONCE PRN RECTAL Amiodarone HCl (AMIODARONE HCL) 450 MG ASDIR IV (CKD) Dextrose/Water (D5%W NON-DEHP) 250 ML Mupirocin (BACTROBAN 2% 22 GM OINTMENT) 1 APPLIC BID NASAL Dopamine HCl/Dextrose (DOPamine 400MG/D5W 250ML) 250 ML ASDIR IV Clopidogrel Bisulfate (Plavix) 75 MG DAILY PO Polyethylene Glycol (MIRALAX) 17 GM DAILY PO Pantoprazole (PROTONIX) 40 MG DAILY@0600 PO Aspirin (ASPIRIN) 81 MG DAILY PO Amiodarone HCl (CORDARONE) 200 MG TID PO Docusate Sodium (COLACE) 100 MG BID PO Gabapentin (NEURONTIN) 200 MG BID PO (DC) Melatonin (Melatonin) 6 MG BEDTIME PO Metoprolol Tartrate (LOPRESSOR) 12.5 MG Q12HR PO Sennosides (Senna Lax 8.6 MG TABLET) 17.2 MG BED TIME PO Fentanyl Citrate (SUBLIMAZE) 50 MCG Q3H PRN PRN IV Tramadol HCl (ULTRAM) 50 MG Q4H PRN PRN PO Tramadol HCl (ULTRAM) 25 MG QID PRN PO Calcium Chloride (CALCIUM CHLORIDE) 1 GM ASDIR P RN IV Dextrose/Water (DEXTROSE 10% IN WATER) 125 ML DIR PRN IV (CKD) Dextrose/Water (DEXTROSE 10% IN WATER) 250 ML DIR PRN IV (CKD) Epinephrine (ADRENALIN CHLORIDE) 4 MG ASDIR IV Dextrose/Water (DEXTROSE 5% WATER) 246 ML Glucagon (GLUCAGON) 1 MG ASDIR PRN IM Magnesium Sulfate (MAGNESIUM SULFATE 4GM/SWFI 10 0ML) 100 ML ASDIR PRN IV Magnesium Sulfate (MAGNESIUM SULFATE 2GM/SWFI 50 ML) 50 ML ASDIR PRN IV Magnesium Sulfate/Dextrose (MAGNESIUM SULFATE 1G M/D5W 100ML) 100 ML ASDIR PRN IV Nitroglycerin/Dextrose (NITROGLYCERIN 50,000MCG/ D5W 250ML) 250 ML ASDIR IV Norepinephrine Bitartrate (NOREPINEPHRINE 8 MG/N S 250 ML) 250 ML TITRATE IV Ondansetron HCl (ZOFRAN) 4 MG Q6H PRN PRN IV Potassium Chloride (KCL 20MEQ/SWFI 100ML) 100 ML ASDIR PRN IV Sodium Bicarbonate (SODIUM BICARBONATE) 50 MEQ A SDIR PRN IV Sodium Chloride (SODIUM CHLORIDE 0.9%) 250 ML Q2 4H IV Dietitian nutrition assessment The data set between the solid lines has been im ported from the dietitian's assessment. BMI Calculated: 31.0 Nutrition related diagnosis: Nutrition diagnosis details: Nutrition problem: Increased nutrient needs Nutrition etiology: Acute illness Nutrition signs and symptoms: HEALING NEEDS S/P SURGERY Nutrition prescription: 1. RECOMMEND CONTINUE CA RDIAC DIET. HONOR FOOD PREFERENCES APPROPRIATE WITH DIET ORDER. 2. PROVIDE GLUCERNA TID WITH MEALS. 3. HEALTHY HEART DIET EDUCATION PRIOR TO DISCHARGE. 4. MONITOR PO, WT, LABS, BM. Dietitian name: Fawn Stewart, DIET Assessment completed: 09/27/22 Physical Exam General appearance: alert, awake, oriented Head/eyes: atraumatic, normocephalic, PERRLA Neck: no JVD, no lymphadenopathy Cardiovascular: normal heart sounds, regular rat e and rhythm, no rub Respiratory: aerating well, clear to auscultatio n, no distress Abdomen: non-tender, normal bowel sounds, soft, no rebound Genitourinary: urinary catheter, urine, no bladd er distention, no flank pain Extremities: no edema, no gangrene Neuro/RN ELIGIBILITY: alert, oriented X 3, CN II-XII intact , normal speech Results Findings/Data: Laboratory Tests 10/01 10/01 10/01 09/30 1216 0757 0347 2101 Chemistry Sodium (134 - 147 mEq/L) 137 Potassium (3.4 - 5.0 mEq/L) 4.2 Chloride (100 - 108 mEq/L) 105 Carbon Dioxide (21 - 33 mEq/l) 27 Anion Gap (0 - 20) 9 BUN (7 - 18 mg/dL) 20 H Creatinine (0.6 - 1.3 mg/dL) 1.1 Glomerular Filtr Rate (70 - 80) 67.9 L Glucose (70 - 110 mg/dL) 184 H POC Glucose (70 - 110 MG/DL) 205 H 149 H 153 H Calcium (8.0 - 10.5 mg/dL) 8.7 Magnesium (1.80 - 2.40 mg/dL) 1.93 Total Bilirubin (0.0 - 1.0 mg/dL) 0.60 Direct Bilirubin (0.0 - 0.30 MG/DL) 0.30 Indirect Bilirubin (MG/DL) 0.30 AST (15 - 37 IUnit/L) 85 H ALT (30 - 65 IUnit/L) 390 H Total Alk Phosphatase (20 - 125 IUnit/L) 75 Total Protein (6.4 - 8.2 g/dL) 5.7 L Albumin (3.4 - 5.0 g/dL) 3.20 L Laboratory Tests 10/01 0347 Hematology WBC (4.5 - 11.0 x10 3/uL) 6.1 RBC (4.00 - 5.60 x10 6/uL) 2.64 L Hgb (12.5 - 16.9 g/dL) 8.6 L Hct (37.5 - 50.7 %) 25.0 L MCV (81.0 - 99.0 fL) 94.7 MCH (27.0 - 33.0 pg) 32.6 MCHC (33.0 - 37.0 g/dL) 34.4 RDW (11.5 - 14.5 %) 14.6 H Plt Count (150 - 400 x10 3/uL) 176 MPV (7.0 - 9.0 fL) 10.8 H Neut % (Auto) (56.0 - 77.0 %) 73.1 Lymph % (Auto) (14.0 - 32.0 %) 12.9 L Isabella % (Auto) (4.8 - 9.0 %) 9.8 H Eos % (Auto) (0.3 - 3.7 %) 2.5 Baso % (Auto) (0.0 - 2.0 %) 0.2 Neut # (Auto) (2.0 - 7.6 x10 3/uL) 4.48 Lymph # (Auto) (1.0 - 3.8 x10 3/uL) 0.79 L Isabella # (Auto) (0.1 - 0.8 x10 3/uL) 0.60 Eos # (Auto) (0.0 - 0.2 x10 3/uL) 0.15 Baso # (Auto) (0.0 - 0.2 x10 3/uL) 0.01 Abs Immat Gran (auto) (0.00 - 0.03 x10 3/uL) 0. 09 H Add Manual Diff NO Immature Gran % (0.0 - 2.0 %) 1.5 Nucleated RBC % (0 - 0 %) 0.7 H Nucleated RBCs # (Man) (0.0 - 0.1 x10 3/uL) 0.0 4 Radiology data: Recent Impressions: RADIOLOGY - XR CHEST 1 V 10/01 729 Report Impression - Status: SIGNED Entered: 10/01/2022 0811 IMPRESSION: 1. Moderate enlarged cardiac silhouette. 2. Linear bilateral chest pulmonary atelectasis, or scarring. 3. Minimal right pleural effusion. 4. Mild interstitial pulmonary edema versus infi ltrates. Impression By: [email or web address] - Nayan Jacobsen M.D. Diagnosis, Assessment Plan Free Text A P: 1. JOSE ARMANDO likely prerenal insufficiency. Creatinine is stable at 1.5>1.3>1.1 this morning. We will hold off on any La six for now. less swollen today, dc IV fluid. Encourage p.o. fluid intake. Currently on room air. Repeat echo after surgery with better EF. 2. Status post CABG and AVR CT surgery following 3. Diabetes type 2 per primary team 4. Anemia PRBC transfusion if hemoglobin less th an 7. No overt GI bleed. Echocardiogram on 09/28/2022 1. Left ventricle: Systolic function is mildly r educed. The estimated ejection fraction is 40-44%. 2. Aortic valve: There is a bioprosthetic valve. Consultants: cardiovascular surgery Electronically Signed by Arin Rossi MD on 10/01 at 1645 RPT #:[id number] END OF REPORT 2022-10-01 15:23:00-00:00 [facility] REPORT#:[id number] REPORT STATUS: Signed DATE:10/01/22 TIME: 152 PATIENT: MONICA BECK UNIT #: [id number] ROOM/BED: [place] [id number] : 42 AGE: 82 SEX: M ATTEND: Nicolasa Maria MD ADM AUTHOR: Charlotte Fitzpatrick MD * ALL edits or amendments must be made on the el [employer]/computer document * Subjective Chief complaint: no acute change Review of Systems All systems rev neg: except as noted Objective General VS/I O: Vital Signs: Date Time Temp Pulse Resp B/P B/P Pulse O2 O2 F low FiO2 Mean Ox Delivery Rate 10/01 1900 95 25 121/81 97 94 10/01 1700 69 22 152/67 96 98 10/01 1600 74 24 148/66 95 98 10/01 1501 67 22 146/64 92 97 10/01 1500 98 Room air 21 10/01 1401 64 19 121/56 81 95 10/01 1300 67 23 144/65 93 99 10/01 1200 69 21 149/65 93 93 10/01 1143 97 Room air 21 10/01 1100 68 139/63 91 94 05/ 1000 67 22 135/63 91 96 10/01 0900 67 15 134/63 91 97 10/01 0829 76 25 130/61 88 98 10/01 0804 99 Room air 21 10/01 0801 67 25 114/65 81 92 05/ 0607 66 22 126/56 83 87 10/01 0500 66 26 127/61 88 96 10/01 0400 63 17 126/60 86 95 09/30 2300 65 25 117/58 79 96 09/30 2235 65 20 127/60 86 96 09/30 2100 68 23 138/65 93 98 24 hour I O ending at 0700: 10/01 0700 09/30 1900 Intake Total 240 780.00 Output Total 1655 900 Balance -1415 -120.00 Intake, IV 300.00 Intake, Oral 240 480 Output, Urine 1655 900 PATIENT WEIGHT: Weight (lb): 180 Weight (oz): 8.94 Weight (kg): 81.900 Medications: Active Meds + DC'd Last 24 Hrs Insulin Glargine (Semglee) 15 UNIT BID SUBQ Insulin Glargine (Semglee) 10 UNIT BID SUBQ (DC) Insulin Human Lispro (HUMALOG) 0 Q6HR SUBQ Ipratropium [place] (ATROVENT) 500 MCG RTQ2H PRN PRN INH Cyanocobalamin (Vitamin B-12 500 mcg tab) 500 MC G DAILY PO Ferrous Sulfate (FERROUS SULFATE) 325 MG DAILY P O Bisacodyl (DULCOLAX) 10 MG ONCE PRN RECTAL Amiodarone HCl (AMIODARONE HCL) 450 MG ASDIR IV (CKD) Dextrose/Water (D5%W NON-DEHP) 250 ML Mupirocin (BACTROBAN 2% 22 GM OINTMENT) 1 APPLIC BID NASAL Dopamine HCl/Dextrose (DOPamine 400MG/D5W 250ML) 250 ML ASDIR IV Clopidogrel Bisulfate (Plavix) 75 MG DAILY PO Polyethylene Glycol (MIRALAX) 17 GM DAILY PO Pantoprazole (PROTONIX) 40 MG DAILY@0600 PO Aspirin (ASPIRIN) 81 MG DAILY PO Amiodarone HCl (CORDARONE) 200 MG TID PO Docusate Sodium (COLACE) 100 MG BID PO Gabapentin (NEURONTIN) 200 MG BID PO (DC) Melatonin (Melatonin) 6 MG BEDTIME PO Metoprolol Tartrate (LOPRESSOR) 12.5 MG Q12HR PO Sennosides (Senna Lax 8.6 MG TABLET) 17.2 MG BED TIME PO Fentanyl Citrate (SUBLIMAZE) 50 MCG Q3H PRN PRN IV Tramadol HCl (ULTRAM) 50 MG Q4H PRN PRN PO (DC) Tramadol HCl (ULTRAM) 25 MG QID PRN PO (DC) Calcium Chloride (CALCIUM CHLORIDE) 1 GM ASDIR P RN IV Dextrose/Water (DEXTROSE 10% IN WATER) 125 ML DIR PRN IV (CKD) Dextrose/Water (DEXTROSE 10% IN WATER) 250 ML DIR PRN IV (CKD) Epinephrine (ADRENALIN CHLORIDE) 4 MG ASDIR IV Dextrose/Water (DEXTROSE 5% WATER) 246 ML Glucagon (GLUCAGON) 1 MG ASDIR PRN IM Magnesium Sulfate (MAGNESIUM SULFATE 4GM/SWFI 10 0ML) 100 ML ASDIR PRN IV Magnesium Sulfate (MAGNESIUM SULFATE 2GM/SWFI 50 ML) 50 ML ASDIR PRN IV Magnesium Sulfate/Dextrose (MAGNESIUM SULFATE 1G M/D5W 100ML) 100 ML ASDIR PRN IV Nitroglycerin/Dextrose (NITROGLYCERIN 50,000MCG/ D5W 250ML) 250 ML ASDIR IV Norepinephrine Bitartrate (NOREPINEPHRINE 8 MG/N S 250 ML) 250 ML TITRATE IV Ondansetron HCl (ZOFRAN) 4 MG Q6H PRN PRN IV Potassium Chloride (KCL 20MEQ/SWFI 100ML) 100 ML ASDIR PRN IV Sodium Bicarbonate (SODIUM BICARBONATE) 50 MEQ A SDIR PRN IV Sodium Chloride (SODIUM CHLORIDE 0.9%) 250 ML Q2 4H IV Dietitian nutrition assessment The data set between the solid lines has been im ported from the dietitian's assessment. BMI Calculated: 31.0 Nutrition related diagnosis: Nutrition diagnosis details: Nutrition problem: Increased nutrient needs Nutrition etiology: Acute illness Nutrition signs and symptoms: HEALING NEEDS S/P SURGERY Nutrition prescription: 1. RECOMMEND CONTINUE CA RDIAC DIET. HONOR FOOD PREFERENCES APPROPRIATE WITH DIET ORDER. 2. PROVIDE GLUCERNA TID WITH MEALS. 3. HEALTHY HEART DIET EDUCATION PRIOR TO DISCHARGE. 4. MONITOR PO, WT, LABS, BM. Dietitian name: Fawn Stewart, DIET Assessment completed: 09/27/22 Physical Exam General appearance: alert, awake, oriented Head/Eyes: CHISHOLM HAIR AND ADAMES WEARING EYEGLASSE S Neck: no JVD Cardiovascular: normal heart sounds, regular rat e rhythm Respiratory: aerating well, clear to auscultatio n Abdomen: non-tender, normal bowel sounds, soft Extremities: no edema Musculoskeletal: normal inspection Neuro/RN ELIGIBILITY: no motor deficits Skin: normal color Psychiatry: normal affect, normal judgment/insig ht Free Text Obj Notes Free Text Obj Notes: General appearance: alert, awake, oriented Head/Eyes: atraumatic, normocephalic ENT: moist mucosal membranes, normal pharynx Neck: non-tender, supple/no meningismus, no JVD Cardiovascular: normal capillary refill, normal heart sounds, regular rate rhythm Respiratory: aerating well, clear to auscultatio n, symmetric expansion Abdomen: non-tender, normal bowel sounds, soft, no distention Extremities: no clubbing, no cyanosis, no edema Neuro/RN ELIGIBILITY: alert, oriented X 3, CNII-XII intact Skin: dry, intact Psychiatry: normal affect, normal judgment/insig ht Diagnosis, Assessment Plan Consultants: cardiovascular surgery Code status: full code Free Text DxA P Notes Free text DxA P notes: NSTEMI, 3-V CAD, SEVERE , S/P CABGX2, S/P AVR, S/P LEYDI ISOLATION - CARD/CTS SEEN, PLAN PER CTS, ON CT/KING, REPEAT ECHO EF 40-45% Continue aspirin 81 mg daily Atorvastatin 80 mg at bedtime ?pneumoperitoneum? 09/29- as per CXR report. defer to critical care for further evaluation. ANEMIA OF SURGICAL BLOOD LOSS - HGB FROM 14 TO 7 .2, TX PRN Pulmonary edema due to aortic stenosis - COMPENS ATED, ECHO EF 45-50%, DD Chest x-ray with bibasilar opacities BNP elevated at 3114 Hypertension - STABLE Resume home lisinopril 10 mg p.o. daily Hydralazine 10 mg IV every 6 hours as n eeded. Blood pressure greater than 170 Type 2 diabetes mellitus - GOOD, CONT ISS, HGBA1 C 6.8%, LDL 40 Hold home metformin, empagliflozin, and semaglu tide Low-dose sliding scale insulin before meals and at bedtime Hyperlipidemia LDL 40, CONT Atorvastatin 80 mg a t bedtime DVT prophylaxis: Heparin drip, cardiology protoc ol Diet: Carbohydrate consistent CODE STATUS: DO NOT RESUSCITATE Patient reports he has an advanced directive His medical power of banking attorney is son Guille Francois t 09/29- POD #3 AVR and CABG x2 . ?pneumoperitoneuam on CXR. awaiting critical care recs. 10/01- POD 5, central line DC'd, ivf's stopped, kidney function stable, king cath remains x1 more day at 205 RPT #:[id number] END OF REPORT 2022-10-01 08:44:00-00:00 [facility]L [facility] Cardiothoracic Surgery Prog REPORT#:[id number] REPORT STATUS: Signed DATE:10/01/22 TIME: 843 PATIENT: MONICA BECK UNIT #: [id number] ROOM/BED: [place] [id number] : 42 AGE: 82 SEX: M ATTEND: Nicolasa Maria MD ADM AUTHOR: Analilia Erwin Physic * ALL edits or amendments must be made on the el [employer]/computer document * General Post-op: day 5 (1) Status post: 09/26/22 ROCEDURES: 1. Aortic valve replacement (25 Inspiris valve) . 2. Coronary artery bypass graft surgery x2 (CASTRO A to LAD, saphenous vein to marginal). 3. Amputation of left atrial appendage. 4. Endoscopic vein harvest (right greater saphe nous vein). 5. Posterior pericardiotomy. Subjective Chief complaint: Pre CABG, AVR eval Review of Systems Constitutional: Denies: chills, fever, malaise. Allergy/Immun: Denies: allergic reaction. Respiratory: Denies: SOB. Cardiovascular: Denies: chest pain, palpitations. : Denies: dysuria, hematuria. Heme: Denies: bleeding. Neuro: Denies: dizziness, headache, vision change. All systems rev neg: except as marked Objective General VS/I O Last Documented: Result Date Time Pulse Ox 99 10/01 0804 FiO2 21 10/01 0804 O2 Delivery Room air 10/01 0804 B/P 126/56 10/01 0607 B/P Mean 83 10/01 0607 Pulse 66 10/01 0607 Resp 22 10/01 0607 Temp 97.9 09/30 0800 O2 Flow Rate 2 09/29 0809 24 hour I O ending at 0700: 10/01 0700 09/30 1900 Intake Total 240 780.00 Output Total 1655 900 Balance -1415 -120.00 Intake, IV 300.00 Intake, Oral 240 480 Output, Urine 1655 900 PATIENT WEIGHT: Weight (lb): 180 Weight (oz): 8.94 Weight (kg): 81.900 Physical Exam General appearance: alert, awake, oriented Wound/incision: Location: Sternum dry, No oozing HEENT: anicteric, mucosal membranes moist Neck: non-tender, supple/no meningismus Cardiovascular: normal heart sounds, a fib Murmur: Systolic 3/6 Respiratory: aerating well, symmetric expansion, no distress Abdomen: soft, non-tender, no distention Extremities: moves all Neuro/RN ELIGIBILITY: alert, oriented X 3, normal speech, n o motor deficits Psychiatry: normal affect, normal mood Diagnosis, Assessment Plan Hospital course to date: Mr Beck a very pleasant 82-year-old male with past medical history of diabetes, hyperlipidemia, restless leg syndrome aortic valve stenosis who presented to [facility] complaining of substernal chest pain across the anterior chest positive for n ausea and diaphoresis. CT chest showed small to moderate bilateral pleural effusions, ascending aorta measuring 4.2 cm. Cardiac enzymes elevated pat ient deemed non-STEMI. He was taken to the [facility] coronary angiogram revealed severe multivessel coronary artery disease. Patient started on heparin drip and transferred to [facility] for possible CABG and AVR. PLAN Coronary angiogram images will be uploaded in [employer] system Dr Maria explained to the patient his family t he angiogram findings and echocardiogram findings and recommended coronary artery bypass graft and aortic valve replacement. The surgery, risks involved, STS score, benefits, complications and alternatives were expl ained to the patient including risk of stroke, respiratory failure, need for tracheosto my, renal failure requiring dialysis, bleeding, infection. Patient acknowled ged understanding and is willing to proceed Initiate preop work-up for AVR Carotid ultrasound BLE venous doppler for vein mapping and marking UA to rule out UTI We will tentatively schedule patient for AVR on 09/26 Preop assessment ongoing Denies chest pain, no shortness of breath Remains on heparin drip Carotid ultrasound showed less than 50% stenosis bilaterally Noncontrasted CT chest performed at [facility] reviewed with Dr. Maria. Images will be uploaded in our system. Coronary angiogram images uploaded in [employer] o Plan for CABG and AVR tomorr ow morning. The surgery, risks involved, STS score, benefits, complications and alternatives were ex plained to the patient. He acknowledged understanding and is willing to pro ceed. Patient changed code status to FULL CODE as he i s going for surgery N.p.o. after midnight 09/27/22 POD 1 AAOx3 Respiratory: 3 l NC, wwean as tolerated. Encourage IS, Deep Breathing, CXR reviewed Cardiac: remains sinus rhtyhm. Pacing wires on s tandby GI: Continue Bowel regimen, no bm yet UO: 1200 Continue PT/OT Disposition: DVT prophylaxis Labs reveiwed- replace electrolytes as needed Patient seen and examined by Dr. Maria. Plan o f care discussed with multidisciplinary team 09/28/22 POD 2 AAOx3 Respiratory: On 2 L NC, 100%, wean as tolerated. Encourage IS, Deep Breathing, CXR reviewed, chest tube in place continue to d rain 300 cc Cardiac: Atrial fibrillation today. Amio bolus g iven, hypotension when moving to the chair. HGB trending down, Will repeat this Am. GI: Passing gas, continue Bowel regimen : King in place, UO: 425 Continue PT/OT Disposition: Pending course DVT prophylaxis Labs reveiwed- replace electrolytes as needed Patient seen and examined by Dr. Maria. Plan o f care discussed with multidisciplinary team 09/29/22 POD 3 AAOx3 Respiratory: On room air, 99% Encourage IS, Deep Breathing, CXR reviewed, CT in place, Still outputs high- continue to monitor. Cardiac: Sinus rhtyhm. Pacer on standby. HGB trending down, Will monitor and repeat. GI: Passing gas, continue Bowel regimen, elevati on liver enzymes likely from amiodarone, will hold Amio for now. : King in place, UO: Urine output low, will consult renal. Victoria t was started on dopamine yesterday subsequently went into A-fib RVR. Amio bolus was given Continue PT/OT Disposition: Pending course DVT prophylaxis Labs reveiwed- replace electrolytes as needed Patient seen and examined by Dr. Maria. Plan o f care discussed with multidisciplinary team 09/30/22 POD 5 AAOx3 Respiratory: On room air, 99% Encourage IS, Deep Breathing, CXR reviewed, Chest tubes out Cardiac: Sinus rhtyhm. Pacer on standby. HGB trending down, Will monitor and repeat. GI: Passing gas, continue Bowel regimen, elevati on liver enzymes likely from amiodarone, will hold Amio for now. : King in place, need 1 more day for urine ou tput. UO: Improving IV fluids stopped, renal f ollowing creatinine improving 1.3 from 1.5 today. Continue PT/OT Disposition: Pending course DVT prophylaxis Labs reveiwed- replace electrolytes as needed Patient seen and examined by Dr. Maria. Plan o f care discussed with multidisciplinary team DC central line 10/01/22 POD 6 AAOx3 Respiratory: On room air, 99% Encourage IS, Deep Breathing, CXR reviewed, Chest tubes out Cardiac: Sinus rhtyhm. Pacer on standby. HGB trending down, Will monitor and repeat. GI: Small BM yest- continue bowel regimen, Liver enzymes trending down. On p.o. Amio : DC king today, Renal function improing 1.3- ->1.1 UO:1800- off IV fluids Continue PT/OT Disposition: Pending course- patient wants to go home with DVT prophylaxis Labs reveiwed- replace electrolytes as needed Patient seen and examined by Dr. Maria. Plan o f care discussed with multidisciplinary team Okay to CVN 1 today Consultants: cardiovascular surgery at 1327 at 0245 RPT #:[id number] END OF REPORT 2022-10-01 08:16:00-00:00 HCACL [facility] Cardiology Progress Note REPORT#:[id number] REPORT STATUS: Signed DATE:10/01/22 TIME: 0816 PATIENT: MONICA BECK UNIT #: [id number] ROOM/BED: [place] [id number] : 42 AGE: 82 SEX: M ATTEND: Nicolasa Maria MD ADM AUTHOR: Clarisse Gotti NP * ALL edits or amendments must be made on the [employer]/computer document * Subjective Chief complaint: Want to go home. Patient reports: No: chest pain, palpitations, shortness of breat h. Nursing reports: No: complaints. Comments: Patient on room air, sitting in chair without di stress note. Telemetry shows normal sinus rhythm. Objective General VS/I O: 24 hour I O ending at 0700: 12 1900 10/01 0700 Intake Total 780.00 240 Output Total 900 1655 Balance -120.00 -1415 Intake, IV 300.00 Intake, Oral 480 240 Output, Urine 900 1655 Vital Signs: Date Time Temp Pulse Resp B/P B/P Pulse O2 O2 F low FiO2 Mean Ox Delivery Rate 10/01 1200 69 21 149/65 93 93 10/01 1100 68 139/63 91 94 10/01 1000 67 22 135/63 91 96 10/01 0900 67 15 134/63 91 97 10/01 0829 76 25 130/61 88 98 10/01 0804 99 Room air 21 10/01 0801 67 25 114/65 81 92 10/01 0607 66 22 126/56 83 87 10/01 0500 66 26 127/61 88 96 10/01 0400 63 17 126/60 86 95 09/30 2300 65 25 117/58 79 96 09/30 2235 65 20 127/60 86 96 09/30 2100 68 23 138/65 93 98 09/30 2000 66 21 151/68 98 97 09/30 1945 Room air 96 09/30 1900 64 15 136/61 88 95 09/30 1700 72 24 127/60 87 90 09/30 1601 68 24 140/60 86 95 09/30 1506 68 24 119/56 81 98 09/30 1400 69 116/61 82 97 09/30 1300 67 20 119/58 84 98 PATIENT WEIGHT: Weight (lb): 180 Weight (oz): 8.94 Weight (kg): 81.900 Medications: Active Meds + DC'd Last 24 Hrs Insulin Glargine (Semglee) 10 UNIT BID SUBQ Insulin Human Lispro (HUMALOG) 0 Q6HR SUBQ Ipratropium [place] (ATROVENT) 500 MCG RTQ2H PRN PRN INH Cyanocobalamin (Vitamin B-12 500 mcg tab) 500 MC G DAILY PO Ferrous Sulfate (FERROUS SULFATE) 325 MG DAILY P O Bisacodyl (DULCOLAX) 10 MG ONCE PRN RECTAL Amiodarone HCl (AMIODARONE HCL) 450 MG ASDIR IV (CKD) Dextrose/Water (D5%W NON-DEHP) 250 ML Mupirocin (BACTROBAN 2% 22 GM OINTMENT) 1 APPLIC BID NASAL Dopamine HCl/Dextrose (DOPamine 400MG/D5W 250ML) 250 ML ASDIR IV Clopidogrel Bisulfate (Plavix) 75 MG DAILY PO Polyethylene Glycol (MIRALAX) 17 GM DAILY PO Pantoprazole (PROTONIX) 40 MG DAILY@0600 PO Aspirin (ASPIRIN) 81 MG DAILY PO Amiodarone HCl (CORDARONE) 200 MG TID PO Docusate Sodium (COLACE) 100 MG BID PO Gabapentin (NEURONTIN) 200 MG BID PO Melatonin (Melatonin) 6 MG BEDTIME PO Metoprolol Tartrate (LOPRESSOR) 12.5 MG Q12HR PO Sennosides (Senna Lax 8.6 MG TABLET) 17.2 MG BED TIME PO Fentanyl Citrate (SUBLIMAZE) 50 MCG Q3H PRN PRN IV Tramadol HCl (ULTRAM) 50 MG Q4H PRN PRN PO Tramadol HCl (ULTRAM) 25 MG QID PRN PO Calcium Chloride (CALCIUM CHLORIDE) 1 GM ASDIR P RN IV Dextrose/Water (DEXTROSE 10% IN WATER) 125 ML DIR PRN IV (CKD) Dextrose/Water (DEXTROSE 10% IN WATER) 250 ML DIR PRN IV (CKD) Epinephrine (ADRENALIN CHLORIDE) 4 MG ASDIR IV Dextrose/Water (DEXTROSE 5% WATER) 246 ML Glucagon (GLUCAGON) 1 MG ASDIR PRN IM Magnesium Sulfate (MAGNESIUM SULFATE 4GM/SWFI 10 0ML) 100 ML ASDIR PRN IV Magnesium Sulfate (MAGNESIUM SULFATE 2GM/SWFI 50 ML) 50 ML ASDIR PRN IV Magnesium Sulfate/Dextrose (MAGNESIUM SULFATE 1G M/D5W 100ML) 100 ML ASDIR PRN IV Nitroglycerin/Dextrose (NITROGLYCERIN 50,000MCG/ D5W 250ML) 250 ML ASDIR IV Norepinephrine Bitartrate (NOREPINEPHRINE 8 MG/N S 250 ML) 250 ML TITRATE IV Ondansetron HCl (ZOFRAN) 4 MG Q6H PRN PRN IV Potassium Chloride (KCL 20MEQ/SWFI 100ML) 100 ML ASDIR PRN IV Sodium Bicarbonate (SODIUM BICARBONATE) 50 MEQ A SDIR PRN IV Sodium Chloride (SODIUM CHLORIDE 0.9%) 1,000 ML .Q20H IV (DC) Sodium Chloride (SODIUM CHLORIDE 0.9%) 250 ML Q2 4H IV Status post: CABG x 2. Physical Exam General appearance: alert, awake, orient ed, no acute distress, conversational, mental status normal, no respiratory distress Head/Eyes: atraumatic ENT: moist mucosal membranes Neck: non-tender, no JVD Cardiovascular: CV assessment: regular rate and rhythm Respiratory: decreased breath sounds, on oxygen, no distress Abdomen: soft, non-tender, normal bowel sounds, no distention Genitourinary: urinary catheter, urine Upper extremity: UE assessment: normal temperature Lower extremity: LE assessment: no edema Musculoskeletal: normal inspection Neuro/RN ELIGIBILITY: alert, oriented X 3, normal speech Skin: dry Psychiatry: normal affect, normal mood Results Findings/Data: Laboratory Tests 09/30 09/30 10/01 10/01 10/01 1633 2101 0347 1767 1216 Chemistry Sodium (134 - 147 mEq/L) 137 Potassium (3.4 - 5.0 mEq/L) 4.2 Chloride (100 - 108 mEq/L) 105 Carbon Dioxide (21 - 33 mEq/l) 27 Anion Gap (0 - 20) 9 BUN (7 - 18 mg/dL) 20 H Creatinine (0.6 - 1.3 mg/dL) 1.1 Glomerular Filtr Rate (70 - 80) 67.9 L Glucose (70 - 110 mg/dL) 184 H POC Glucose (70 - 110 MG/DL) 166 H 153 H 149 H 205 H Calcium (8.0 - 10.5 mg/dL) 8.7 Magnesium (1.80 - 2.40 mg/dL) 1.93 Total Bilirubin (0.0 - 1.0 mg/dL) 0.60 Direct Bilirubin (0.0 - 0.30 MG/DL) 0.30 Indirect Bilirubin (MG/DL) 0.30 AST (15 - 37 IUnit/L) 85 H ALT (30 - 65 IUnit/L) 390 H Total Alk Phosphatase (20 - 125 IUnit/L) 75 Total Protein (6.4 - 8.2 g/dL) 5.7 L Albumin (3.4 - 5.0 g/dL) 3.20 L Laboratory Tests 10/017 Hematology WBC (4.5 - 11.0 x10 3/uL) 6.1 RBC (4.00 - 5.60 x10 6/uL) 2.64 L Hgb (12.5 - 16.9 g/dL) 8.6 L Hct (37.5 - 50.7 %) 25.0 L MCV (81.0 - 99.0 fL) 94.7 MCH (27.0 - 33.0 pg) 32.6 MCHC (33.0 - 37.0 g/dL) 34.4 RDW (11.5 - 14.5 %) 14.6 H Plt Count (150 - 400 x10 3/uL) 176 MPV (7.0 - 9.0 fL) 10.8 H Neut % (Auto) (56.0 - 77.0 %) 73.1 Lymph % (Auto) (14.0 - 32.0 %) 12.9 L Isabella % (Auto) (4.8 - 9.0 %) 9.8 H Eos % (Auto) (0.3 - 3.7 %) 2.5 Baso % (Auto) (0.0 - 2.0 %) 0.2 Neut # (Auto) (2.0 - 7.6 x10 3/uL) 4.48 Lymph # (Auto) (1.0 - 3.8 x10 3/uL) 0.79 L Isabella # (Auto) (0.1 - 0.8 x10 3/uL) 0.60 Eos # (Auto) (0.0 - 0.2 x10 3/uL) 0.15 Baso # (Auto) (0.0 - 0.2 x10 3/uL) 0.01 Abs Immat Gran (auto) (0.00 - 0.03 x10 3/uL) 0 .09 H Add Manual Diff NO Immature Gran % (0.0 - 2.0 %) 1.5 Nucleated RBC % (0 - 0 %) 0.7 H Nucleated RBCs # (Man) (0.0 - 0.1 x10 3/uL) 0.0 4 Laboratory Tests 10/01 0347 Chemistry Magnesium (1.80 - 2.40 mg/dL) 1.93 Radiology data: Recent Impressions: RADIOLOGY - XR CHEST 1 V 10/01 0730 Report Impression - Status: SIGNED Entered: 10/01/2022 0811 IMPRESSION: 1. Moderate enlarged cardiac silhouette. 2. Linear bilateral chest pulmonary atelectasis, or scarring. 3. Minimal right pleural effusion. 4. Mild interstitial pulmonary edema versus infi ltrates. Impression By: [email or web address] - Nayan Jacobsen M.D. Results: labs reviewed, vital signs reviewed, vi floresita signs stable, rhythm personally rev'd, current med profile rev'd Telemetry Interpretation: Telemetry shows normal sinus rhythm Diagnosis, Assessment Plan Problem List/A P: 1. S/P CABG x 2 2. S/P AVR 3. CAD (coronary artery disease) 4. Severe aortic stenosis Consultants: cardiovascular surgery Plan discussed with: patient, nurse Free Text DxA P Notes Free Text DxA P Notes: 82 YO male with MHx of DM, HLD, . He presented to [facility] with CP, found to have NSTEMI. LHC ensued that showed sev ere multivessel CAD. He is transferred to us and underwent CABG and AVR on 09/26/22. 1. Multivessel CAD S/p CABG x2 (NAIR to LAD and SVG to OM), ALAA, a nd SAVR on DAPT, BB, statin hemodynamics stable. post-op care per CTS Positive fluid balance, diurese per CTS Edema improving. 2. s/p SAVR continue DAPT 3. Hypertension BP Stable continue BB 4. Diabetes mellitus glucose control per critical care 5. ELevated LFT. AST/ALT trending down. Doing better. Await to transfer to telemetry. Electronically Signed by Clarisse Gotti NP on at 1247 Electronically Signed by Ana Ramsey MD on at 1654 RPT #:[id number] END OF REPORT 2022-10-01 06:32:00-00:00 [facility]ACL [facility] Critical Care Progress Note REPORT#:[id number] REPORT STATUS: Signed DATE:10/01/22 TIME: 06 PATIENT: MONICA BECK UNIT #: [id number] ROOM/BED: [place] [id number] : 42 AGE: 82 SEX: M ATTEND: Nicolasa Maria MD ADM AUTHOR: Milton Mast MD * ALL edits or amendments must be made on the [employer]/computer document * Subjective Chief complaint: CABG HPI: 82-year-old male with history of HTN, HL, NIDDM, aortic stenosis and restless leg syndrome, who presented to outside hospital with chest pain and found to have non-STEMI. Cardiac catheter revealed severe multivessel coronary artery disease. Patient underwent A VR (25 INSPIRIS), CABG X2 (NAIR-LAD, SVG-OM), ALAA, EVH (RGSV) and posterior per icardiotomy today at 09/26/2022. EF was 30-35% and it slightly improved postop 40% on ANKUR. Crystalloid 1.8 L, albumin 150, urine output 600, Cell Saver 250. Surgery went well so patient was extubated and transferred to CVICU postop in a stable surgical condition. He was weaned off all vasopressors coming off pump and is currently on nitroglycerin and insulin drip. Comments: Out of bed in the chair, walking Urine output 1.8 L Remains in sinus rhythm Tolerating p.o., no BM Still on room air Objective General VS/I O Last Documented: Result Date Time Pulse Ox 96 09/30 2300 B/P 117/58 09/30 2300 B/P Mean 79 09/30 2300 Pulse 65 09/30 2300 Resp 25 09/30 2300 FiO2 96 09/30 1945 O2 Delivery Room air 09/30 1944 Temp 97.9 09/30 0800 O2 Flow Rate 2 09/29 0809 24 hour I O ending at 0700: 10/01 0700 09/30 1900 Intake Total 240 780.00 Output Total 1455 900 Balance -1215 -120.00 Intake, IV 300.00 Intake, Oral 240 480 Output, Urine 1455 900 PATIENT WEIGHT: Weight (lb): 180 Weight (oz): 8.94 Weight (kg): 81.900 Medications: Active Meds + DC'd Last 24 Hrs Insulin Glargine (Semglee) 10 UNIT BID SUBQ Insulin Human Lispro (HUMALOG) 0 Q6HR SUBQ Ipratropium [place] (ATROVENT) 500 MCG RTQ2H PRN PRN INH Cyanocobalamin (Vitamin B-12 500 mcg tab) 500 MC G DAILY PO Ferrous Sulfate (FERROUS SULFATE) 325 MG DAILY P O Bisacodyl (DULCOLAX) 10 MG ONCE PRN RECTAL Amiodarone HCl (AMIODARONE HCL) 450 MG ASDIR IV (CKD) Dextrose/Water (D5%W NON-DEHP) 250 ML Mupirocin (BACTROBAN 2% 22 GM OINTMENT) 1 APPLIC BID NASAL Dopamine HCl/Dextrose (DOPamine 400MG/D5W 250ML) 250 ML ASDIR IV Clopidogrel Bisulfate (Plavix) 75 MG DAILY PO Polyethylene Glycol (MIRALAX) 17 GM DAILY PO Pantoprazole (PROTONIX) 40 MG DAILY@0600 PO Aspirin (ASPIRIN) 81 MG DAILY PO Amiodarone HCl (CORDARONE) 200 MG TID PO Docusate Sodium (COLACE) 100 MG BID PO Gabapentin (NEURONTIN) 200 MG BID PO Melatonin (Melatonin) 6 MG BEDTIME PO Metoprolol Tartrate (LOPRESSOR) 12.5 MG Q12HR PO Sennosides (Senna Lax 8.6 MG TABLET) 17.2 MG BED TIME PO Fentanyl Citrate (SUBLIMAZE) 50 MCG Q3H PRN PRN IV Tramadol HCl (ULTRAM) 50 MG Q4H PRN PRN PO Tramadol HCl (ULTRAM) 25 MG QID PRN PO Calcium Chloride (CALCIUM CHLORIDE) 1 GM ASDIR P RN IV Dextrose/Water (DEXTROSE 10% IN WATER) 125 ML DIR PRN IV (CKD) Dextrose/Water (DEXTROSE 10% IN WATER) 250 ML DIR PRN IV (CKD) Epinephrine (ADRENALIN CHLORIDE) 4 MG ASDIR IV Dextrose/Water (DEXTROSE 5% WATER) 246 ML Glucagon (GLUCAGON) 1 MG ASDIR PRN IM Magnesium Sulfate (MAGNESIUM SULFATE 4GM/SWFI 10 0ML) 100 ML ASDIR PRN IV Magnesium Sulfate (MAGNESIUM SULFATE 2GM/SWFI 50 ML) 50 ML ASDIR PRN IV Magnesium Sulfate/Dextrose (MAGNESIUM SULFATE 1G M/D5W 100ML) 100 ML ASDIR PRN IV Nitroglycerin/Dextrose (NITROGLYCERIN 50,000MCG/ D5W 250ML) 250 ML ASDIR IV Norepinephrine Bitartrate (NOREPINEPHRINE 8 MG/N S 250 ML) 250 ML TITRATE IV Ondansetron HCl (ZOFRAN) 4 MG Q6H PRN PRN IV Potassium Chloride (KCL 20MEQ/SWFI 100ML) 100 ML ASDIR PRN IV Sodium Bicarbonate (SODIUM BICARBONATE) 50 MEQ A SDIR PRN IV Sodium Chloride (SODIUM CHLORIDE 0.9%) 1,000 ML .Q20H IV (DC) Sodium Chloride (SODIUM CHLORIDE 0.9%) 250 ML Q2 4H IV Free Text Obj Notes Free Text Obj Notes: General appearance: Elderly male in no acute dis tress, interactive and conversational HEENT: atraumatic, normocephalic, moist mucosal membranes Neck: full range of motion, supple/no meningismu s Cardiovascular: S1-S2 regular rate and rhythm Respiratory: symmetric expansion, no acute respi ratory distress Abdomen: soft, non-tender, no distention, no gua rding Genitourinary: king with clear urine Extremities: pedal pulses palpable, moves all, n o clubbing, no cyanosis, no edema Musculoskeletal: normal inspection, no muscle sp asm Neuro/RN ELIGIBILITY: Alert and oriented x3, CNII-XII gross ly intact, no motor deficits Skin: dry, intact and clean surgery dressing Diagnosis, Assessment Plan Problem list/A P: 1. CAD (coronary artery disease) 2. S/P CABG x 2 3. S/P AVR 4. Severe aortic stenosis Free text A P: 82-year-old male with history of HTN, HL, NIDDM, aortic stenosis and restless leg syndrome, who presented to outside hospital with chest pain and found to have non-STEMI. Cardiac catheter revealed severe multivessel coronary artery disease. Patient underwent A VR (25 INSPIRIS), CABG X2 (NAIR-LAD, SVG-OM), ALAA, EVH (RGSV) and posterior per icardiotomy today at 09/26/2022. EF was 30-35% and it slightly improved postop 40% on ANKUR. Crystalloid 1.8 L, albumin 150, urine output 600, Cell Saver 250. Surgery went well so patient was extubated and transferred to CVICU postop in a stable surgical condition. He was weaned off all vasopressors coming off pump and is currently on nitroglycerin and insulin drip. Neuro: Appears intact, multimodal pain control Respiratory: Sats well, wean O2, encourage I-S, ABG and CXR reviewed Cardiovascular: HD stable of f vasopressors, wean nitroglycerin drip, keep CTs to suction Renal: strict I/Os, monitor Cr and electrolytes, lactic acidosis, judicious resuscitation GI: bedside swallow then oral diet, bowel regime n, monitor LFTs, replete hypokalemia ID: reactive leukocytosis, trend WBC, co ntinue periop antibiotics per protocol Hem: acute postop anemia, co agulopathy and thrombocytopenia, monitor Hgb and CTs output, transfuse blood products as needed Endo: Blood glucose control with insulin gtt per protocol Misc: PT and OT consult, DVT and GI ppx with DAP T and PPI 09/27 Remains neuro intact, continue multimodal pain c ontrol Sats well, continue to wean O2, encourage I-S, A BG and CXR reviewed HD unstable back on vasopressors, attempt to wea n, check CVP, bolus as needed Cr stable, good urine output, lactic acidosis cl eared s/p resuscitation, repleted hypocalcemia Oral diet as tolerated, christopher l regimen, monitor gastric distention on x-ray, mild transaminitis No fevers or leukocytosis, given periop antibiot ics Hgb appears stable, no evidence of active bleed, monitor CTs output Blood glucose control with insulin drip, transit ion to sliding scale insulin Encourage PT/OT and out of bed as tolerated DVT and GI prophylaxis with DAPT and PPI 09/28 Remains neuro intact, continue multimodal pain c ontrol Sats well, continue to wean O2, encourage I-S, C XR reviewed HD stable weaned off vasopressors, low CVP s/p r esuscitation, amiodarone per protocol for A-fib Mild JOSE ARMANDO with uptrending Cr, given IVF and Lasix, monitor UOP and electrolytes, obtain urine lytes Oral diet as tolerated, bowel regimen, resolved transaminitis No fevers or leukocytosis, no ID issues at this time Acute postop anemia and thro mbocytopenia, hgb and plt appear stable, no evidence of active bleed, monitor CTs output, remove per CT surgery Blood glucose control with insulin drip, plan to transition to sliding scale insulin Encourage PT/OT and out of bed as tolerated DVT and GI prophylaxis with DAPT and PPI 09/29 Remains neuro intact, continue multimodal pain c ontrol Sats well on room air, continue I-S, CXR reviewe d HD stable off vasopressors s/p resuscitation, A- fib converted to SR, continue amiodarone JOSE ARMANDO with uptrending Cr, given fluids, hold off o n diuresis, monitor UOP and electrolytes Tolerating oral diet, aggressive bowel r egimen, has pneumoperitoneum on x-ray, serial abdominal exam, no further imaging or int ervention per CT surgery, transaminitis, trend LFTs No fevers or leukocytosis, no ID issues at this time Hgb and plt remain stable, no evidence of active bleed, remove chest tubes Blood glucose control with insulin drip, transitioned to sliding scale insulin Encourage PT/OT and out of bed as tolerated, dis po plan likely home DVT and GI prophylaxis with DAPT and PPI 09/30 Remains neuro intact, continue multimodal pain c ontrol Sats well on room air, continue I-S, CXR reviewe d Remains HD stable and in sinus rhythm, continue BB and oral amiodarone JOSE ARMANDO, Cr trending down after IV hydration per jennifer al Tolerating oral diet, aggressive bowel regimen, transaminitis, trend LFTs No fevers or leukocytosis, no ID issues at this time Hgb and plt remain stable, no evidence of active bleed, remove CTs today Blood glucose control, start Lantus, sliding sca le insulin Encourage PT/OT and out of bed as tolerated, dis po plan likely home DVT and GI prophylaxis with DAPT and PPI 10/01 Remains neuro intact, pain appears well controll ed with multimodal approach Sats well on room air, continue I-S, CXR reviewe d Remains HD stable and in sinus rhythm, continue BB and oral amiodarone, off statin JOSE ARMANDO resolved s/p IV hydration, may need diuresis , replete hypomagnesemia Tolerating oral diet, aggres sive bowel regimen, transaminitis with downtrending LFTs Remains afebrile, no leukocytosis, no ID issues at this time Hgb remains stable, thromboc ytopenia resolved, no evidence of active bleed, CTs removed Blood glucose uncontrolled, increase Lantus, con tinue sliding scale insulin Tolerating PT/OT and out of bed, not deniz lified for IPR, may need SNF if unable to go home DVT and GI prophylaxis with DAPT and PPI Consultants: cardiovascular surgery Plan discussed with: patient, family, co nsultants, nurse, interdisc care team, pharmacy/pharmacist Critical care time: Minutes: 35 Electronically Signed by Milton Mast MD on 09/19 08/11 at 1245 RPT #:[id number] END OF REPORT 2022-09-30 15:58:00-00:00 [facility]ACL [facility] ([facility] Cardiothoracic Surgery Prog REPORT#:[id number] REPORT STATUS: Signed DATE:09/30/22 TIME: 1558 PATIENT: MONICA BECK UNIT #: [id number] ROOM/BED: [place] [id number] : 42 AGE: 82 SEX: M ATTEND: Nicolasa Maria MD ADM AUTHOR: Analilia Erwin Physic * ALL edits or amendments must be made on the el [employer]/computer document * General Post-op: day 4 (1) Status post: 09/26/22 ROCEDURES: 1. Aortic valve replacement (25 Inspiris valve) . 2. Coronary artery bypass graft surgery x2 (CASTRO A to LAD, saphenous vein to marginal). 3. Amputation of left atrial appendage. 4. Endoscopic vein harvest (right greater saphe nous vein). 5. Posterior pericardiotomy. Subjective Chief complaint: Pre CABG, AVR eval Review of Systems Constitutional: Denies: chills, fever, malaise. Allergy/Immun: Denies: allergic reaction. Respiratory: Denies: SOB. Cardiovascular: Denies: chest pain, palpitations. : Denies: dysuria, hematuria. Heme: Denies: bleeding. Neuro: Denies: dizziness, headache, vision change. All systems rev neg: except as marked Objective General VS/I O Last Documented: Result Date Time Pulse Ox 98 09/30 1506 B/P 119/56 09/30 1506 B/P Mean 81 09/30 1506 Pulse 68 09/30 1506 Resp 24 09/30 1506 FiO2 21 09/30 1159 O2 Delivery Room air 09/30 1159 Temp 97.9 09/30 0800 O2 Flow Rate 2 09/29 0809 24 hour I O ending at 0700: 09/30 0700 09/29 1900 Intake Total 890.00 1230.00 Output Total 980 925 Balance -90.00 305.00 Intake, IV 500.00 330.00 Intake, Oral 390 660 Intake, Oral 240 Supplement Output, Chest 35 260 Tube Drainage Output, Urine 945 665 Patient 81.9 kg Weight Weight Standing scale Measurement Method PATIENT WEIGHT: Weight (lb): 180 Weight (oz): 8.94 Weight (kg): 81.900 Physical Exam General appearance: alert, awake, oriented Wound/incision: Location: Sternum dry, No oozing HEENT: anicteric, mucosal membranes moist Neck: non-tender, supple/no meningismus Cardiovascular: normal heart sounds, a fib Murmur: Systolic 3/6 Respiratory: aerating well, symmetric expansion, no distress Abdomen: soft, non-tender, no distention Extremities: moves all Neuro/RN ELIGIBILITY: alert, oriented X 3, normal speech, n o motor deficits Psychiatry: normal affect, normal mood Diagnosis, Assessment Plan Hospital course to date: Mr Beck a very pleasant 82-year-old male with past medical history of diabetes, hyperlipidemia, restless leg syndrome aortic valve stenosis who presented to [facility] complaining of substernal chest pain across the anterior chest positive for n ausea and diaphoresis. CT chest showed small to moderate bilateral pleural effusions, ascending aorta measuring 4.2 cm. Cardiac enzymes elevated pat ient deemed non-STEMI. He was taken to the [facility] coronary angiogram revealed severe multivessel coronary artery disease. Patient started on heparin drip and transferred to [facility] for possible CABG and AVR. PLAN Coronary angiogram images will be uploaded in [employer] system Dr Maria explained to the patient his family t he angiogram findings and echocardiogram findings and recommended coronary artery bypass graft and aortic valve replacement. The surgery, risks involved, STS score, benefits, complications and alternatives were expl ained to the patient including risk of stroke, respiratory failure, need for tracheosto my, renal failure requiring dialysis, bleeding, infection. Patient acknowled ged understanding and is willing to proceed Initiate preop work-up for AVR Carotid ultrasound BLE venous doppler for vein mapping and marking UA to rule out UTI We will tentatively schedule patient for AVR on 09/26 Preop assessment ongoing Denies chest pain, no shortness of breath Remains on heparin drip Carotid ultrasound showed less than 50% stenosis bilaterally Noncontrasted CT chest performed at [facility] reviewed with Dr. Maria. Images will be uploaded in our system. Coronary angiogram images uploaded in [employer] o Plan for CABG and AVR tomorr ow morning. The surgery, risks involved, STS score, benefits, complications and alternatives were ex plained to the patient. He acknowledged understanding and is willing to pro ceed. Patient changed code status to FULL CODE as he i s going for surgery N.p.o. after midnight 09/27/22 POD 1 AAOx3 Respiratory: 3 l NC, wwean as tolerated. Encourage IS, Deep Breathing, CXR reviewed Cardiac: remains sinus rhtyhm. Pacing wires on s tandby GI: Continue Bowel regimen, no bm yet UO: 1200 Continue PT/OT Disposition: DVT prophylaxis Labs reveiwed- replace electrolytes as needed Patient seen and examined by Dr. Maria. Plan o f care discussed with multidisciplinary team 09/28/22 POD 2 AAOx3 Respiratory: On 2 L NC, 100%, wean as tolerated. Encourage IS, Deep Breathing, CXR reviewed, chest tube in place continue to d rain 300 cc Cardiac: Atrial fibrillation today. Amio bolus g iven, hypotension when moving to the chair. HGB trending down, Will repeat this Am. GI: Passing gas, continue Bowel regimen : King in place, UO: 425 Continue PT/OT Disposition: Pending course DVT prophylaxis Labs reveiwed- replace electrolytes as needed Patient seen and examined by Dr. Maria. Plan o f care discussed with multidisciplinary team 09/29/22 POD 3 AAOx3 Respiratory: On room air, 99% Encourage IS, Deep Breathing, CXR reviewed, CT in place, Still outputs high- continue to monitor. Cardiac: Sinus rhtyhm. Pacer on standby. HGB trending down, Will monitor and repeat. GI: Passing gas, continue Bowel regimen, elevati on liver enzymes likely from amiodarone, will hold Amio for now. : King in place, UO: Urine output low, will consult renal. [place] ve[place] was started on dopamine yesterday subsequently went into A-fib RVR. Amio bolus was given Continue PT/OT Disposition: Pending course DVT prophylaxis Labs reveiwed- replace electrolytes as needed Patient seen and examined by Dr. Maria. Plan o f care discussed with multidisciplinary team 09/30/22 POD 4 AAOx3 Respiratory: On room air, 99% Encourage IS, Deep Breathing, CXR reviewed, DC chest tubes today Cardiac: Sinus rhtyhm. Pacer on standby. HGB trending down, Will monitor and repeat. GI: Passing gas, continue Bowel regimen, elevati on liver enzymes likely from amiodarone, will hold Amio for now. : King in place, need 1 more day for urine ou tput. UO: Improving IV fluids stopped, renal f ollowing creatinine improving 1.3 from 1.5 today. Continue PT/OT Disposition: Pending course DVT prophylaxis Labs reveiwed- replace electrolytes as needed Patient seen and examined by Dr. Maria. Plan o f care discussed with multidisciplinary team DC central line Consultants: cardiovascular surgery at 1604 at 0245 RPT #:[id number] END OF REPORT 2022-09-30 10:42:00-00:00 HCACL [facility] ([facility]) Nephrology Progress Note REPORT#:[id number] REPORT STATUS: Signed DATE:09/30/22 TIME: 104 PATIENT: MONICA BECK UNIT #: [id number] ROOM/BED: [place] [id number] : 42 AGE: 82 SEX: M ATTEND: Nicolasa Maria MD ADM AUTHOR: Nila Cheung MD * ALL edits or amendments must be made on the [employer] document * Subjective Comments: Doing well, increasing urine output. Objective General VS/I O: Vital Signs: Date Time Temp Pulse Resp B/P B/P Pulse O2 O2 F low FiO2 Mean Ox Delivery Rate 09/30 0901 66 19 109/57 79 97 05/ 0801 73 150/69 99 90 05/ 0800 97.9 05/ 0800 97 Room air 21 09/30 0725 67 19 96 05/ 0700 67 18 110/56 79 96 05/ 0600 70 27 122/58 84 96 05/ 0500 69 26 118/58 83 93 05/ 0400 71 22 122/60 86 95 05/ 0301 71 20 125/65 86 94 05/ 0300 71 22 94 05/12 0200 68 17 141/63 91 95 05/12 0100 71 23 119/57 82 93 05/12 0000 72 23 117/63 85 95 05/ 2300 70 20 123/60 86 95 05/ 2200 71 29 107/54 77 95 05/ 2100 70 23 107/54 77 95 05/ 2000 98.2 09/29 2000 72 19 128/57 82 94 05/ 1935 95 Room air 21 09/29 1900 71 19 115/58 81 95 05/ 1800 72 25 135/63 91 97 09/29 1700 67 17 121/65 88 95 09/29 1600 66 14 121/60 86 96 09/29 1500 66 17 110/59 79 95 09/29 1351 72 115/53 76 96 09/29 1200 67 16 109/55 75 95 09/29 1130 68 16 104/55 74 94 09/29 1101 72 22 137/63 90 98 09/29 1053 77 127/58 84 98 24 hour I O ending at 0700: 09/30 0700 09/29 1900 Intake Total 890.00 1230.00 Output Total 980 925 Balance -90.00 305.00 Intake, IV 500.00 330.00 Intake, Oral 390 660 Intake, Oral 240 Supplement Output, Chest 35 260 Tube Drainage Output, Urine 945 665 Patient 81.9 kg Weight Weight Standing scale Measurement Method PATIENT WEIGHT: Weight (lb): 180 Weight (oz): 8.94 Weight (kg): 81.900 Medications Active Meds + DC'd Last 24 Hrs Insulin Glargine (Semglee) 10 UNIT BID SUBQ Insulin Human Lispro (HUMALOG) 0 Q6HR SUBQ Ipratropium [place] (ATROVENT) 500 MCG RTQ2H PRN PRN INH Cyanocobalamin (Vitamin B-12 500 mcg tab) 500 MC G DAILY PO Ferrous Sulfate (FERROUS SULFATE) 325 MG DAILY P O Bisacodyl (DULCOLAX) 10 MG ONCE PRN RECTAL Amiodarone HCl (AMIODARONE HCL) 450 MG ASDIR IV (CKD) Dextrose/Water (D5%W NON-DEHP) 250 ML Mupirocin (BACTROBAN 2% 22 GM OINTMENT) 1 APPLIC BID NASAL Atorvastatin Calcium (LIPITOR) 40 MG 2100 PO (DC ) Dopamine HCl/Dextrose (DOPamine 400MG/D5W 250ML) 250 ML ASDIR IV Clopidogrel Bisulfate (Plavix) 75 MG DAILY PO Polyethylene Glycol (MIRALAX) 17 GM DAILY PO Pantoprazole (PROTONIX) 40 MG DAILY@0600 PO Aspirin (ASPIRIN) 81 MG DAILY PO Amiodarone HCl (CORDARONE) 200 MG TID PO Docusate Sodium (COLACE) 100 MG BID PO Gabapentin (NEURONTIN) 200 MG BID PO Melatonin (Melatonin) 6 MG BEDTIME PO Metoprolol Tartrate (LOPRESSOR) 12.5 MG Q12HR PO Sennosides (Senna Lax 8.6 MG TABLET) 17.2 MG BED TIME PO Fentanyl Citrate (SUBLIMAZE) 50 MCG Q3H PRN PRN IV Tramadol HCl (ULTRAM) 50 MG Q4H PRN PRN PO Tramadol HCl (ULTRAM) 25 MG QID PRN PO Ipratropium [place] (ATROVENT) 500 MCG RTQ4H INH (DC) Acetaminophen (TYLENOL) 650 MG Q4H PRN PRN PO (D C) Acetaminophen (TYLENOL) 650 MG Q4H PRN PRN RECTA L (DC) Calcium Chloride (CALCIUM CHLORIDE) 1 GM ASDIR P RN IV Dextrose/Water (DEXTROSE 10% IN WATER) 125 ML DIR PRN IV (CKD) Dextrose/Water (DEXTROSE 10% IN WATER) 250 ML DIR PRN IV (CKD) Epinephrine (ADRENALIN CHLORIDE) 4 MG ASDIR IV Dextrose/Water (DEXTROSE 5% WATER) 246 ML Glucagon (GLUCAGON) 1 MG ASDIR PRN IM Insulin Human Regular (HumuLIN R) 100 UNIT ASDIR IV (DC) Sodium Chloride (SODIUM CHLORIDE 0.9%) 99 ML Magnesium Sulfate (MAGNESIUM SULFATE 4GM/SWFI 10 0ML) 100 ML ASDIR PRN IV Magnesium Sulfate (MAGNESIUM SULFATE 2GM/SWFI 50 ML) 50 ML ASDIR PRN IV Magnesium Sulfate/Dextrose (MAGNESIUM SULFATE 1G M/D5W 100ML) 100 ML ASDIR PRN IV Nitroglycerin/Dextrose (NITROGLYCERIN 50,000MCG/ D5W 250ML) 250 ML ASDIR IV Norepinephrine Bitartrate (NOREPINEPHRINE 8 MG/N S 250 ML) 250 ML TITRATE IV Ondansetron HCl (ZOFRAN) 4 MG Q6H PRN PRN IV Potassium Chloride (KCL 20MEQ/SWFI 100ML) 100 ML ASDIR PRN IV Sodium Bicarbonate (SODIUM BICARBONATE) 50 MEQ A SDIR PRN IV Sodium Chloride (SODIUM CHLORIDE 0.9%) 1,000 ML .Q20H IV Sodium Chloride (SODIUM CHLORIDE 0.9%) 250 ML Q2 4H IV Physical Exam General appearance: alert, awake, oriented Head/eyes: atraumatic, normocephalic, PERRLA Neck: no JVD, no lymphadenopathy Cardiovascular: normal heart sounds, regular rat e and rhythm, no rub Respiratory: aerating well, clear to auscultatio n, no distress Abdomen: non-tender, normal bowel sounds, soft, no rebound Genitourinary: urinary catheter, urine, no bladd er distention, no flank pain Extremities: no edema, no gangrene Neuro/RN ELIGIBILITY: alert, oriented X 3, CN II-XII intact , normal speech Results Findings/Data: Laboratory Tests 09/30 09/30 09/29 09/29 09/29 0639 0209 2347 1733 1646 Chemistry Sodium (134 - 147 mEq/L) 133 L 132 L Potassium (3.4 - 5.0 mEq/L) 4.4 4.8 Chloride (100 - 108 mEq/L) 104 104 Carbon Dioxide (21 - 33 mEq/l) 26 25 Anion Gap (0 - 20) 7 8 BUN (7 - 18 mg/dL) 28 H 29 H Creatinine (0.6 - 1.3 mg/dL) 1.3 1.5 H Glomerular Filtr Rate (70 - 80) 55.5 L 46.8 L Glucose (70 - 110 mg/dL) 202 H 215 H POC Glucose (70 - 110 MG/DL) 197 H 192 H 226 H Calcium (8.0 - 10.5 mg/dL) 8.7 8.7 Phosphorus (2.5 - 4.9 MG/DL) 4.1 Magnesium (1.80 - 2.40 mg/dL) 2.11 Total Bilirubin (0.0 - 1.0 mg/dL) 0.50 Direct Bilirubin (0.0 - 0.30 MG/DL) 0.30 Indirect Bilirubin (MG/DL) 0.20 AST (15 - 37 IUnit/L) 244 H ALT (30 - 65 IUnit/L) 544 H Total Alk Phosphatase (20 - 125 IUnit/L) 56 Total Protein (6.4 - 8.2 g/dL) 5.3 L Albumin (3.4 - 5.0 g/dL) 3.10 L 3.40 Laboratory Tests 09/30 208 Hematology WBC (4.5 - 11.0 x10 3/uL) 5.7 RBC (4.00 - 5.60 x10 6/uL) 2.57 L Hgb (12.5 - 16.9 g/dL) 8.3 L Hct (37.5 - 50.7 %) 24.2 L MCV (81.0 - 99.0 fL) 94.2 MCH (27.0 - 33.0 pg) 32.3 MCHC (33.0 - 37.0 g/dL) 34.3 RDW (11.5 - 14.5 %) 14.8 H Plt Count (150 - 400 x10 3/uL) 82 L MPV (7.0 - 9.0 fL) 11.8 H Neut % (Auto) (56.0 - 77.0 %) 78.0 H Lymph % (Auto) (14.0 - 32.0 %) 13.2 L Isabella % (Auto) (4.8 - 9.0 %) 6.5 Eos % (Auto) (0.3 - 3.7 %) 1.4 Baso % (Auto) (0.0 - 2.0 %) 0.2 Neut # (Auto) (2.0 - 7.6 x10 3/uL) 4.45 Lymph # (Auto) (1.0 - 3.8 x10 3/uL) 0.75 L Isabella # (Auto) (0.1 - 0.8 x10 3/uL) 0.37 Eos # (Auto) (0.0 - 0.2 x10 3/uL) 0.08 Baso # (Auto) (0.0 - 0.2 x10 3/uL) 0.01 Abs Immat Gran (auto) (0.00 - 0.03 x10 3/uL) 0. 04 H Add Manual Diff NO Immature Gran % (0.0 - 2.0 %) 0.7 Nucleated RBC % (0 - 0 %) 0.4 H Nucleated RBCs # (Man) (0.0 - 0.1 x10 3/uL) 0.0 2 Diagnosis, Assessment Plan Free Text A P: 1. JOSE ARMANDO likely prerenal insufficiency. Creatinine is stable at 1.5>1.3 this morning. We will hold off on any Lasix for now. Discontinue IV fluid. Encourage p.o. fluid intake. Currently on room a ir. Repeat echo after surgery with better EF. 2. Status post CABG and AVR CT surgery following 3. Diabetes type 2 per primary team 4. Anemia PRBC transfusion if hemoglobin less th an 7. No overt GI bleed. Echocardiogram on 09/28/2022 1. Left ventricle: Systolic function is mildly r educed. The estimated ejection fraction is 40-44%. 2. Aortic valve: There is a bioprosthetic valve. Consultants: cardiovascular surgery Electronically Signed by Nila Cheung MD on at [facility] RPT #:[id number] END OF REPORT 2022-09-30 09:54:00-00:00 HCACL [facility] Cardiology Progress Note REPORT#:[id number] REPORT STATUS: Signed DATE:09/30/22 TIME: 953 PATIENT: MONICA BECK UNIT #: [id number] ROOM/BED: [place] [address] : 42 AGE: 82 SEX: M ATTEND: Nicolasa Maria MD ADM AUTHOR: Clarisse Gotti NP * ALL edits or amendments must be made on the [employer] document * Subjective Chief complaint: Doing ok Patient reports: No: chest pain, palpitations, shortness of breat h. Nursing reports: No: complaints. Comments: Pt is in suppine, RA, NAD. IV fluid at 50 cc/h through the right IJ cordis. Telemetry shows normal sinus rhythm. Spoke with bedside RN, plan to DC Cordis later o n today. Objective General VS/I O: 24 hour I O ending at 0700: 05/11 1900 09/30 0700 Intake Total 1230.00 890.00 Output Total 925 980 Balance 305.00 -90.00 Intake, IV 330.00 500.00 Intake, Oral 660 390 Intake, Oral 240 Supplement Output, Chest 260 35 Tube Drainage Output, Urine 665 945 Patient 81.9 kg Weight Weight Standing scale Measurement Method Vital Signs: Date Time Temp Pulse Resp B/P B/P Pulse O2 O2 F low FiO2 Mean Ox Delivery Rate 09/30 1200 72 24 108/87 94 92 09/30 1159 96 Room air 21 09/30 1101 66 23 115/55 79 96 09/30 1021 75 150/63 91 94 09/30 1000 65 15 116/58 83 95 09/30 0901 66 19 109/57 79 97 09/30 0801 73 150/69 99 90 09/30 0800 97.9 09/30 0800 97 Room air 21 09/30 0725 67 19 96 09/30 0700 67 18 110/56 79 96 09/30 0600 70 27 122/58 84 96 09/30 0500 69 26 118/58 83 93 09/30 0400 71 22 122/60 86 95 09/30 0301 71 20 125/65 86 94 09/30 0300 71 22 94 05 0200 68 17 141/63 91 95 09/30 0100 71 23 119/57 82 93 05 0000 72 23 117/63 85 95 09/29 2300 70 20 123/60 86 95 09/29 2200 71 29 107/54 77 95 09/29 2100 70 23 107/54 77 95 09/30 1999 98.2 09/29 2000 72 19 128/57 82 94 09/29 1935 95 Room air 21 09/29 1900 71 19 115/58 81 95 09/29 1800 72 25 135/63 91 97 09/29 1700 67 17 121/65 88 95 09/29 1600 66 14 121/60 86 96 09/29 1500 66 17 110/59 79 95 PATIENT WEIGHT: Weight (lb): 180 Weight (oz): 8.94 Weight (kg): 81.900 Medications: Active Meds + DC'd Last 24 Hrs Insulin Glargine (Semglee) 10 UNIT BID SUBQ Insulin Human Lispro (HUMALOG) 0 Q6HR SUBQ Ipratropium [place] (ATROVENT) 500 MCG RTQ2H PRN PRN INH Cyanocobalamin (Vitamin B-12 500 mcg tab) 500 MC G DAILY PO Ferrous Sulfate (FERROUS SULFATE) 325 MG DAILY P O Bisacodyl (DULCOLAX) 10 MG ONCE PRN RECTAL Amiodarone HCl (AMIODARONE HCL) 450 MG ASDIR IV (CKD) Dextrose/Water (D5%W NON-DEHP) 250 ML Mupirocin (BACTROBAN 2% 22 GM OINTMENT) 1 APPLIC BID NASAL Atorvastatin Calcium (LIPITOR) 40 MG 2100 PO (D C) Dopamine HCl/Dextrose (DOPamine 400MG/D5W 250ML) 250 ML ASDIR IV Clopidogrel Bisulfate (Plavix) 75 MG DAILY PO Polyethylene Glycol (MIRALAX) 17 GM DAILY PO Pantoprazole (PROTONIX) 40 MG DAILY@0600 PO Aspirin (ASPIRIN) 81 MG DAILY PO Amiodarone HCl (CORDARONE) 200 MG TID PO Docusate Sodium (COLACE) 100 MG BID PO Gabapentin (NEURONTIN) 200 MG BID PO Melatonin (Melatonin) 6 MG BEDTIME PO Metoprolol Tartrate (LOPRESSOR) 12.5 MG Q12HR PO Sennosides (Senna Lax 8.6 MG TABLET) 17.2 MG BED TIME PO Fentanyl Citrate (SUBLIMAZE) 50 MCG Q3H PRN PRN IV Tramadol HCl (ULTRAM) 50 MG Q4H PRN PRN PO Tramadol HCl (ULTRAM) 25 MG QID PRN PO Ipratropium [place] (ATROVENT) 500 MCG RTQ4H INH (DC) Acetaminophen (TYLENOL) 650 MG Q4H PRN PRN PO ( DC) Acetaminophen (TYLENOL) 650 MG Q4H PRN PRN RECTA L (DC) Calcium Chloride (CALCIUM CHLORIDE) 1 GM ASDIR P RN IV Dextrose/Water (DEXTROSE 10% IN WATER) 125 ML DIR PRN IV (CKD) Dextrose/Water (DEXTROSE 10% IN WATER) 250 ML DIR PRN IV (CKD) Epinephrine (ADRENALIN CHLORIDE) 4 MG ASDIR IV Dextrose/Water (DEXTROSE 5% WATER) 246 ML Glucagon (GLUCAGON) 1 MG ASDIR PRN IM Insulin Human Regular (HumuLIN R) 100 UNIT ASDIR IV (DC) Sodium Chloride (SODIUM CHLORIDE 0.9%) 99 ML Magnesium Sulfate (MAGNESIUM SULFATE 4GM/SWFI 10 0ML) 100 ML ASDIR PRN IV Magnesium Sulfate (MAGNESIUM SULFATE 2GM/SWFI 50 ML) 50 ML ASDIR PRN IV Magnesium Sulfate/Dextrose (MAGNESIUM SULFATE 1G M/D5W 100ML) 100 ML ASDIR PRN IV Nitroglycerin/Dextrose (NITROGLYCERIN 50,000MCG/ D5W 250ML) 250 ML ASDIR IV Norepinephrine Bitartrate (NOREPINEPHRINE 8 MG/N S 250 ML) 250 ML TITRATE IV Ondansetron HCl (ZOFRAN) 4 MG Q6H PRN PRN IV Potassium Chloride (KCL 20MEQ/SWFI 100ML) 100 M L ASDIR PRN IV Sodium Bicarbonate (SODIUM BICARBONATE) 50 MEQ A SDIR PRN IV Sodium Chloride (SODIUM CHLORIDE 0.9%) 1,000 ML .Q20H IV Sodium Chloride (SODIUM CHLORIDE 0.9%) 250 ML Q2 4H IV Status post: CABG x 2. Physical Exam General appearance: alert, awake, oriented, no a cute distress, mental status normal, no respiratory distress Head/Eyes: atraumatic ENT: moist mucosal membranes Neck: non-tender, no JVD Cardiovascular: CV assessment: regular rate and rhythm Respiratory: decreased breath sounds, on oxygen, no distress Abdomen: soft, non-tender, normal bowel sounds, no distention Genitourinary: urinary catheter, urine Upper extremity: UE assessment: normal temperature Lower extremity: LE assessment: no edema Musculoskeletal: normal inspection Neuro/RN ELIGIBILITY: alert, oriented X 3, normal speech Skin: dry Psychiatry: normal affect, normal mood Results Findings/Data: Laboratory Tests 09/29 09/29 09/29 09/30 09/30 1646 1733 2347 0209 0639 Chemistry Sodium (134 - 147 mEq/L) 132 L 133 L Potassium (3.4 - 5.0 mEq/L) 4.8 4.4 Chloride (100 - 108 mEq/L) 104 104 Carbon Dioxide (21 - 33 mEq/l) 25 26 Anion Gap (0 - 20) 8 7 BUN (7 - 18 mg/dL) 29 H 28 H Creatinine (0.6 - 1.3 mg/dL) 1.5 H 1.3 Glomerular Filtr Rate (70 - 80) 46.8 L 55.5 L Glucose (70 - 110 mg/dL) 215 H 202 H POC Glucose (70 - 110 MG/DL) 226 H 192 H 197 H Calcium (8.0 - 10.5 mg/dL) 8.7 8.7 Phosphorus (2.5 - 4.9 MG/DL) 4.1 Magnesium (1.80 - 2.40 mg/dL) 2.11 Total Bilirubin (0.0 - 1.0 mg/dL) 0.50 Direct Bilirubin (0.0 - 0.30 MG/DL) 0.30 Indirect Bilirubin (MG/DL) 0.20 AST (15 - 37 IUnit/L) 244 H ALT (30 - 65 IUnit/L) 544 H Total Alk Phosphatase (20 - 125 56 IUnit/L) Total Protein (6.4 - 8.2 g/dL) 5.3 L Albumin (3.4 - 5.0 g/dL) 3.40 3.10 L 09/30 1151 Chemistry POC Glucose (70 - 110 MG/DL) 219 H Laboratory Tests 09/30 0209 Hematology WBC (4.5 - 11.0 x10 3/uL) 5.7 RBC (4.00 - 5.60 x10 6/uL) 2.57 L Hgb (12.5 - 16.9 g/dL) 8.3 L Hct (37.5 - 50.7 %) 24.2 L MCV (81.0 - 99.0 fL) 94.2 MCH (27.0 - 33.0 pg) 32.3 MCHC (33.0 - 37.0 g/dL) 34.3 RDW (11.5 - 14.5 %) 14.8 H Plt Count (150 - 400 x10 3/uL) 82 L MPV (7.0 - 9.0 fL) 11.8 H Neut % (Auto) (56.0 - 77.0 %) 78.0 H Lymph % (Auto) (14.0 - 32.0 %) 13.2 L Isabella % (Auto) (4.8 - 9.0 %) 6.5 Eos % (Auto) (0.3 - 3.7 %) 1.4 Baso % (Auto) (0.0 - 2.0 %) 0.2 Neut # (Auto) (2.0 - 7.6 x10 3/uL) 4.45 Lymph # (Auto) (1.0 - 3.8 x10 3/uL) 0.75 L Isabella # (Auto) (0.1 - 0.8 x10 3/uL) 0.37 Eos # (Auto) (0.0 - 0.2 x10 3/uL) 0.08 Baso # (Auto) (0.0 - 0.2 x10 3/uL) 0.01 Abs Immat Gran (auto) (0.00 - 0.03 x10 3/uL) 0. 04 H Add Manual Diff NO Immature Gran % (0.0 - 2.0 %) 0.7 Nucleated RBC % (0 - 0 %) 0.4 H Nucleated RBCs # (Man) (0.0 - 0.1 x10 3/uL) 0.0 2 Laboratory Tests 09/30 0209 Chemistry Magnesium (1.80 - 2.40 mg/dL) 2.11 Radiology data: Recent Impressions: RADIOLOGY - XR CHEST 1 V 09/30 721 Report Impression - Status: SIGNED Entered: 09/30/2022 1422 IMPRESSION: No significant change when allowing for differen chloé in technique. Impression By: Juancho Johns M.D. Results: labs reviewed, vital signs reviewed, vi floresita signs stable, rhythm personally rev'd, x-ray personally reviewed, cur rent med profile rev'd Telemetry Interpretation: Normal sinus rhythm Diagnosis, Assessment Plan Problem List/A P: 1. S/P CABG x 2 2. S/P AVR 3. CAD (coronary artery disease) 4. Severe aortic stenosis Consultants: cardiovascular surgery Plan discussed with: patient, nurse Free Text DxA P Notes Free Text DxA P Notes: 82 YO male with MHx of DM, HLD, . He presented to [facility] with CP, found to have NSTEMI. LHC ensued that showed sev ere multivessel CAD. He is transferred to us and underwent CABG and AVR on 09/26/22. 1. Multivessel CAD S/p CABG x2 (NAIR to LAD and SVG to OM), ALAA, a nd SAVR on DAPT, BB, statin hemodynamics stable. post-op care per CTS Positive fluid balance, diurese per CTS 2. s/p SAVR continue DAPT 3. Hypertension BP Stable continue BB 4. Diabetes mellitus glucose control per critical care Electronically Signed by Clarisse Gotti NP on at 1500 Electronically Signed by Jakob Pa MD on at 2019 RPT #:[id number] END OF REPORT 2022-09-30 09:03:00-00:00 HCACL [facility] ([facility] Critical Care Progress Note REPORT#:[id number] REPORT STATUS: Signed DATE:09/30/22 TIME: 902 PATIENT: MONICA BECK UNIT #: [id number] ROOM/BED: 2201 : 42 AGE: 82 SEX: M ATTEND: Nicolasa Maria MD ADM AUTHOR: Milton Mast MD * ALL edits or amendments must be made on the [employer]/computer document * Subjective Chief complaint: CABG HPI: 82-year-old male with history of HTN, HL, NIDDM, aortic stenosis and restless leg syndrome, who presented to outside hospital with chest pain and found to have non-STEMI. Cardiac catheter revealed severe multivessel coronary artery disease. Patient underwent A VR (25 INSPIRIS), CABG X2 (NAIR-LAD, SVG-OM), ALAA, EVH (RGSV) and posterior per icardiotomy today at 09/26/2022. EF was 30-35% and it slightly improved postop 40% on ANKUR. Crystalloid 1.8 L, albumin 150, urine output 600, Cell Saver 250. Surgery went well so patient was extubated and transferred to CVICU postop in a stable surgical condition. He was weaned off all vasopressors coming off pump and is currently on nitroglycerin and insulin drip. Comments: Out of bed in the chair On IV fluids with NS 50/hr Urine output 1.1 L CTs output 50 and 0 Remains in sinus rhythm Objective General VS/I O Last Documented: Result Date Time Pulse Ox 97 09/30 0800 FiO2 21 09/30 0800 O2 Delivery Room air 09/30 0800 Pulse 67 / 0725 Resp 19 09/30 0725 B/P 110/56 09/30 0700 B/P Mean 79 09/30 0700 Temp 98.2 09/29 2000 O2 Flow Rate 2 09/29 0809 24 hour I O ending at 0700: 09/30 0700 09/29 1900 Intake Total 890.00 1230.00 Output Total 980 925 Balance -90.00 305.00 Intake, IV 500.00 330.00 Intake, Oral 390 660 Intake, Oral 240 Supplement Output, Chest 35 260 Tube Drainage Output, Urine 945 665 Patient 81.9 kg Weight Weight Standing scale Measurement Method PATIENT WEIGHT: Weight (lb): 180 Weight (oz): 8.94 Weight (kg): 81.900 Medications: Active Meds + DC'd Last 24 Hrs Insulin Human Lispro (HUMALOG) 0 Q6HR SUBQ Ipratropium [place] (ATROVENT) 500 MCG RTQ2H PRN PRN INH Cyanocobalamin (Vitamin B-12 500 mcg tab) 500 MC G DAILY PO Ferrous Sulfate (FERROUS SULFATE) 325 MG DAILY P O Bisacodyl (DULCOLAX) 10 MG ONCE PRN RECTAL Amiodarone HCl (AMIODARONE HCL) 450 MG ASDIR IV (CKD) Dextrose/Water (D5%W NON-DEHP) 250 ML Mupirocin (BACTROBAN 2% 22 GM OINTMENT) 1 APPLIC BID NASAL Atorvastatin Calcium (LIPITOR) 40 MG 2100 PO (DC ) Dopamine HCl/Dextrose (DOPamine 400MG/D5W 250ML) 250 ML ASDIR IV Clopidogrel Bisulfate (Plavix) 75 MG DAILY PO Polyethylene Glycol (MIRALAX) 17 GM DAILY PO Pantoprazole (PROTONIX) 40 MG DAILY@0600 PO Aspirin (ASPIRIN) 81 MG DAILY PO Amiodarone HCl (CORDARONE) 200 MG TID PO Docusate Sodium (COLACE) 100 MG BID PO Gabapentin (NEURONTIN) 200 MG BID PO Melatonin (Melatonin) 6 MG BEDTIME PO Metoprolol Tartrate (LOPRESSOR) 12.5 MG Q12HR PO Sennosides (Senna Lax 8.6 MG TABLET) 17.2 MG BED TIME PO Fentanyl Citrate (SUBLIMAZE) 50 MCG Q3H PRN PRN IV Tramadol HCl (ULTRAM) 50 MG Q4H PRN PRN PO Tramadol HCl (ULTRAM) 25 MG QID PRN PO Ipratropium [place] (ATROVENT) 500 MCG RTQ4H INH (DC) Acetaminophen (TYLENOL) 650 MG Q4H PRN PRN PO (D C) Acetaminophen (TYLENOL) 650 MG Q4H PRN PRN RECTA L (DC) Calcium Chloride (CALCIUM CHLORIDE) 1 GM ASDIR P RN IV Dextrose/Water (DEXTROSE 10% IN WATER) 125 ML DIR PRN IV (CKD) Dextrose/Water (DEXTROSE 10% IN WATER) 250 ML DIR PRN IV (CKD) Epinephrine (ADRENALIN CHLORIDE) 4 MG ASDIR IV Dextrose/Water (DEXTROSE 5% WATER) 246 ML Glucagon (GLUCAGON) 1 MG ASDIR PRN IM Insulin Human Regular (HumuLIN R) 100 UNIT ASDIR IV (DC) Sodium Chloride (SODIUM CHLORIDE 0.9%) 99 ML Magnesium Sulfate (MAGNESIUM SULFATE 4GM/SWFI 10 0ML) 100 ML ASDIR PRN IV Magnesium Sulfate (MAGNESIUM SULFATE 2GM/SWFI 50 ML) 50 ML ASDIR PRN IV Magnesium Sulfate/Dextrose (MAGNESIUM SULFATE 1G M/D5W 100ML) 100 ML ASDIR PRN IV Nitroglycerin/Dextrose (NITROGLYCERIN 50,000MCG/ D5W 250ML) 250 ML ASDIR IV Norepinephrine Bitartrate (NOREPINEPHRINE 8 MG/N S 250 ML) 250 ML TITRATE IV Ondansetron HCl (ZOFRAN) 4 MG Q6H PRN PRN IV Potassium Chloride (KCL 20MEQ/SWFI 100ML) 100 ML ASDIR PRN IV Sodium Bicarbonate (SODIUM BICARBONATE) 50 MEQ A SDIR PRN IV Sodium Chloride (SODIUM CHLORIDE 0.9%) 1,000 ML .Q20H IV Sodium Chloride (SODIUM CHLORIDE 0.9%) 250 ML Q2 4H IV Results Findings/data: Laboratory Tests 09/30 09/30 09/29 09/29 09/29 [id number] Chemistry Sodium (134 - 147 mEq/L) 133 L 132 L Potassium (3.4 - 5.0 mEq/L) 4.4 4.8 Chloride (100 - 108 mEq/L) 104 104 Carbon Dioxide (21 - 33 mEq/l) 26 25 Anion Gap (0 - 20) 7 8 BUN (7 - 18 mg/dL) 28 H 29 H Creatinine (0.6 - 1.3 mg/dL) 1.3 1.5 H Glomerular Filtr Rate (70 - 80) 55.5 L 46.8 L Glucose (70 - 110 mg/dL) 202 H 215 H POC Glucose (70 - 110 MG/DL) 197 H 192 H 226 H Calcium (8.0 - 10.5 mg/dL) 8.7 8.7 Phosphorus (2.5 - 4.9 MG/DL) 4.1 Magnesium (1.80 - 2.40 mg/dL) 2.11 Total Bilirubin (0.0 - 1.0 mg/dL) 0.50 Direct Bilirubin (0.0 - 0.30 MG/DL) 0.30 Indirect Bilirubin (MG/DL) 0.20 AST (15 - 37 IUnit/L) 244 H ALT (30 - 65 IUnit/L) 544 H Total Alk Phosphatase (20 - 125 IUnit/L) 56 Total Protein (6.4 - 8.2 g/dL) 5.3 L Albumin (3.4 - 5.0 g/dL) 3.10 L 3.40 Laboratory Tests 05/12 0209 Hematology WBC (4.5 - 11.0 x10 3/uL) 5.7 RBC (4.00 - 5.60 x10 6/uL) 2.57 L Hgb (12.5 - 16.9 g/dL) 8.3 L Hct (37.5 - 50.7 %) 24.2 L MCV (81.0 - 99.0 fL) 94.2 MCH (27.0 - 33.0 pg) 32.3 MCHC (33.0 - 37.0 g/dL) 34.3 RDW (11.5 - 14.5 %) 14.8 H Plt Count (150 - 400 x10 3/uL) 82 L MPV (7.0 - 9.0 fL) 11.8 H Neut % (Auto) (56.0 - 77.0 %) 78.0 H Lymph % (Auto) (14.0 - 32.0 %) 13.2 L Isabella % (Auto) (4.8 - 9.0 %) 6.5 Eos % (Auto) (0.3 - 3.7 %) 1.4 Baso % (Auto) (0.0 - 2.0 %) 0.2 Neut # (Auto) (2.0 - 7.6 x10 3/uL) 4.45 Lymph # (Auto) (1.0 - 3.8 x10 3/uL) 0.75 L Isabella # (Auto) (0.1 - 0.8 x10 3/uL) 0.37 Eos # (Auto) (0.0 - 0.2 x10 3/uL) 0.08 Baso # (Auto) (0.0 - 0.2 x10 3/uL) 0.01 Abs Immat Gran (auto) (0.00 - 0.03 x10 3/uL) 0. 04 H Add Manual Diff NO Immature Gran % (0.0 - 2.0 %) 0.7 Nucleated RBC % (0 - 0 %) 0.4 H Nucleated RBCs # (Man) (0.0 - 0.1 x10 3/uL) 0.0 2 Laboratory Tests 09/30/22 0209: [Embedded Image Not Available] 09/29/22 1733: [Embedded Image Not Available] Radiology data Recent Impressions: RADIOLOGY - XR CHEST 1 V 09/30 7270 Report Impression - Status: SIGNED Entered: 09/30/2022 1422 IMPRESSION: No significant change when allowing for differen chloé in technique. Impression By: Juancho - Varghese Johns M.D. Free Text Obj Notes Free Text Obj Notes: General appearance: Elderly male in no acute dis tress, interactive and conversational HEENT: atraumatic, normocephalic, dry mucosal me mbranes Neck: full range of motion, supple/no meningismu s Cardiovascular: S1-S2 regular rate and rhythm Respiratory: symmetric expansion, no acute respi ratory distress Abdomen: soft, non-tender, no distention, no gua rding Genitourinary: king with clear urine Extremities: pedal pulses palpable, moves all, n o clubbing, no cyanosis, no edema Musculoskeletal: normal inspection, no muscle sp asm Neuro/RN ELIGIBILITY: Alert and oriented x3, CNII-XII gross ly intact, no motor deficits Skin: dry, intact and clean surgery dressing Diagnosis, Assessment Plan Problem list/A P: 1. CAD (coronary artery disease) 2. S/P CABG x 2 3. S/P AVR 4. Severe aortic stenosis Free text A P: 82-year-old male with history of HTN, HL, NIDDM, aortic stenosis and restless leg syndrome, who presented to outside hospital with chest pain and found to have non-STEMI. Cardiac catheter revealed severe multivessel coronary artery disease. Patient underwent A VR (25 INSPIRIS), CABG X2 (NAIR-LAD, SVG-OM), ALAA, EVH (RGSV) and posterior per icardiotomy today at 09/26/2022. EF was 30-35% and it slightly improved postop 40% on ANKUR. Crystalloid 1.8 L, albumin 150, urine output 600, Cell Saver 250. Surgery went well so patient was extubated and transferred to CVICU postop in a stable surgical condition. He was weaned off all vasopressors coming off pump and is currently on nitroglycerin and insulin drip. Neuro: Appears intact, multimodal pain control Respiratory: Sats well, wean O2, encourage I-S, ABG and CXR reviewed Cardiovascular: HD stable of f vasopressors, wean nitroglycerin drip, keep CTs to suction Renal: strict I/Os, monitor Cr and electrolytes, lactic acidosis, judicious resuscitation GI: bedside swallow then oral diet, bowel regime n, monitor LFTs, replete hypokalemia ID: reactive leukocytosis, trend WBC, co ntinue periop antibiotics per protocol Hem: acute postop anemia, co agulopathy and thrombocytopenia, monitor Hgb and CTs output, transfuse blood products as needed Endo: Blood glucose control with insulin gtt per protocol Misc: PT and OT consult, DVT and GI ppx with DAP T and PPI 09/27 Remains neuro intact, continue multimodal pain c ontrol Sats well, continue to wean O2, encourage I-S, A BG and CXR reviewed HD unstable back on vasopressors, attempt to wea n, check CVP, bolus as needed Cr stable, good urine output, lactic acidosis cl eared s/p resuscitation, repleted hypocalcemia Oral diet as tolerated, christopher l regimen, monitor gastric distention on x-ray, mild transaminitis No fevers or leukocytosis, given periop antibiot ics Hgb appears stable, no evidence of active bleed, monitor CTs output Blood glucose control with insulin drip, transit ion to sliding scale insulin Encourage PT/OT and out of bed as tolerated DVT and GI prophylaxis with DAPT and PPI 09/28 Remains neuro intact, continue multimodal pain c ontrol Sats well, continue to wean O2, encourage I-S, C XR reviewed HD stable weaned off vasopressors, low CVP s/p r esuscitation, amiodarone per protocol for A-fib Mild JOSE ARMANDO with uptrending Cr, given IVF and Lasix, monitor UOP and electrolytes, obtain urine lytes Oral diet as tolerated, bowel regimen, resolved transaminitis No fevers or leukocytosis, no ID issues at this time Acute postop anemia and thro mbocytopenia, hgb and plt appear stable, no evidence of active bleed, monitor CTs output, remove per CT surgery Blood glucose control with insulin drip, plan to transition to sliding scale insulin Encourage PT/OT and out of bed as tolerated DVT and GI prophylaxis with DAPT and PPI 09/29 Remains neuro intact, continue multimodal pain c ontrol Sats well on room air, continue I-S, CXR reviewe d HD stable off vasopressors s/p resuscitation, A- fib converted to SR, continue amiodarone JOSE ARMANDO with uptrending Cr, given fluids, hold off o n diuresis, monitor UOP and electrolytes Tolerating oral diet, aggressive bowel r egimen, has pneumoperitoneum on x-ray, serial abdominal exam, no further imaging or int ervention per CT surgery, transaminitis, trend LFTs No fevers or leukocytosis, no ID issues at this time Hgb and plt remain stable, no evidence of active bleed, remove chest tubes Blood glucose control with insulin drip, transitioned to sliding scale insulin Encourage PT/OT and out of bed as tolerated, dis po plan likely home DVT and GI prophylaxis with DAPT and PPI 09/30 Remains neuro intact, continue multimodal pain c ontrol Sats well on room air, continue I-S, CXR reviewe d Remains HD stable and in sinus rhythm, continue BB and oral amiodarone JOSE ARMANDO, Cr trending down after IV hydration per jennifer al Tolerating oral diet, aggressive bowel regimen, transaminitis, trend LFTs No fevers or leukocytosis, no ID issues at this time Hgb and plt remain stable, no evidence of active bleed, remove CTs today Blood glucose control, start Lantus, sliding sca le insulin Encourage PT/OT and out of bed as tolerated, dis po plan likely home DVT and GI prophylaxis with DAPT and PPI Consultants: cardiovascular surgery Plan discussed with: patient, family, co nsultants, nurse, interdisc care team, pharmacy/pharmacist Critical care time: Minutes: 37 Electronically Signed by Milton Mast MD on 09/19 08/11 at 1245 RPT #:[id number] END OF REPORT 2022-09-29 13:14:00-00:00 [facility] REPORT#:[id number] REPORT STATUS: Signed DATE:09/29/22 TIME: 1314 PATIENT: MONICA BECK UNIT #: [id number] ROOM/BED: 2201 : 42 AGE: 82 SEX: M ATTEND: Nicolasa Maria MD ADM AUTHOR: Lisandro Russell MD * ALL edits or amendments must be made on the el [employer]/computer document * Subjective Chief complaint: sitting up beside the bed. no cp. c/p post op di [place] and poor apetite. Objective General VS/I O: Vital Signs: Date Time Temp Pulse Resp B/P B/P Pulse O2 O2 F low FiO2 Mean Ox Delivery Rate 05/ 0930 71 19 97/50 69 94 05/11 0900 73 26 111/57 81 95 05/11 0830 75 106/55 77 97 05/11 0809 94 Nasal 2 cannula 05/ 0800 71 20 108/54 77 95 05/11 0730 71 19 110/57 80 93 05/11 0700 74 21 99/56 74 95 05/11 0630 69 23 94/52 70 100 05/11 0607 74 20 100/52 74 97 05/11 0600 71 26 97 05/11 0530 71 24 94/50 68 99 05/11 0502 75 28 98/57 74 95 05/11 0501 75 21 68/43 52 96 05/11 0500 75 27 94 05/11 0430 73 21 97/55 72 99 05/11 0418 72 20 98 05/11 0400 97.8 Nasal 2 cannula 05/ 0400 73 19 106/57 78 98 05/11 0330 72 22 94/51 66 98 05/11 0300 72 19 98/57 75 99 05/11 0230 71 19 97/56 69 99 05/11 0200 71 21 109/56 77 98 05/11 0130 74 34 98/54 73 91 05/11 0100 73 34 111/55 79 93 05/11 0030 72 23 106/59 81 91 05/11 0000 97.8 Nasal 2 cannula 05/ 0000 71 19 108/57 78 94 05/10 2330 70 20 110/58 81 96 05/10 2300 71 19 117/59 85 93 05/10 2230 72 26 140/64 92 94 05/10 2200 72 20 127/59 85 94 05/10 2154 72 23 93 05/10 2130 71 21 125/58 84 94 05/10 2100 74 21 124/60 87 94 05/10 2030 73 29 118/58 83 96 05/10 1999 97.1 Nasal 2 cannula 05/10 1999 67 23 124/59 85 96 05/10 1930 Nasal 2 cannula 05/10 1930 70 21 124/53 77 95 05/10 1900 71 33 109/58 75 96 05/10 1727 75 29 89 05/10 1700 70 24 104/53 74 98 09/28 1600 69 25 99/50 70 97 09/28 1539 95 High flow 2 nasal cannula 09/28 1502 69 22 104/55 75 95 09/28 1430 72 31 109/57 79 80 09/28 1400 73 24 107/55 77 95 09/28 1355 73 28 115/82 93 24 hour I O ending at 0700: 09/29 0700 09/28 1900 Intake Total 1256.50 885.70 Output Total 310 270 Balance 946.50 615.70 Intake, IV 1136.50 520.70 Intake, Oral 120 365 Output, Chest 20 90 Tube Drainage Output, Urine 290 180 Patient 84.3 kg Weight Weight Bed scale Measurement Method PATIENT WEIGHT: Weight (lb): 185 Weight (oz): 13.59 Weight (kg): 84.300 Physical Exam General appearance: alert, awake Head/Eyes: CHISHOLM HAIR AND ADAMES WEARING EYEGLASSE S Neck: no JVD Cardiovascular: normal heart sounds, regular rat e rhythm Respiratory: aerating well, clear to auscultatio n Abdomen: non-tender, normal bowel sounds, soft Extremities: no edema Musculoskeletal: normal inspection Neuro/RN ELIGIBILITY: no motor deficits Skin: normal color Psychiatry: normal affect, normal judgment/insig ht Results Radiology data: Laboratory Tests 09/29/22 0311: [Embedded Image Not Available] 09/28/22 1810: [Embedded Image Not Available] 09/28/22 1126: [Embedded Image Not Available] 09/28/22 0720: Hgb TNP, Hct TNP 09/28/22 0720: [Embedded Image Not Available] 09/28/22 0210: [Embedded Image Not Available] Current Medications Sig/Jocy Start time Last Medication Dose Route Stop Time Status Admin Ipratropium [place] 500 MCG RTQ2H PRN PRN 09/29 1501 AC INH 10/29 1500 Cyanocobalamin 500 MCG DAILY 09/29 899 AC PO 10/29 0859 Ferrous Sulfate 325 MG DAILY 09/29 899 AC PO 10/29 0859 Furosemide 20 MG ONCE ONE 09/29 0545 DC 09/29 IV 09/29 0546 0650 Furosemide 20 MG ONCE ONE 09/29 0545 CAN IV 09/29 0546 Sodium Chloride 250 ML BOLUS ONCE ONE 09/29 021 5 DC 09/29 IV 09/29 0216 0218 Sodium Chloride 250 ML BOLUS ONCE ONE 09/28 21 45 DC 09/28 IV 09/28 2146 2204 Albumin Human 250 ML ONCE ONE 09/28 1530 DC IV 09/28 1559 1505 Bisacodyl 10 MG ONCE PRN 09/28 1200 AC RECTAL 10/28 1159 Magnesium Hydroxide 30 ML ONCE PRN 09/28 1200 D C 09/28 PO 1432 Amiodarone HCl 450 MG ASDIR 09/28 1115 CKD 09/19 0 Dextrose/Water 250 ML IV 10/28 111 205 Mupirocin 1 APPLIC BID 09/28 899 AC 09/29 NASAL 10/02 2100 0843 Atorvastatin Calcium 40 MG 2100 09/27 2099 DC 09/28 PO 10/27 Dopamine HCl/Dextrose 250 ML ASDIR 09/27 1045 A C 09/27 IV 10/27 1044 1057 Clopidogrel Bisulfate 75 MG DAILY 09/27 899 AC 09/29 PO 10/27 0859 0842 Polyethylene Glycol 17 GM DAILY 09/27 899 AC 0 09/29 PO 10/27 0859 0842 Pantoprazole 40 MG DAILY@09/27 0600 AC PO 10/27 0559 0651 Aspirin 81 MG DAILY 09/26 2100 AC 09/29 PO 10/26 2100 0842 Amiodarone HCl 200 MG TID 09/26 2099 AC 09/28 PO 10/26 Docusate Sodium 100 MG BID 09/26 2099 AC 09/29 PO 10/26 2058 0847 Gabapentin 200 MG BID 09/26 2099 AC 09/29 PO 10/01 0901 0842 Melatonin 6 MG BEDTIME 09/26 2099 AC 09/28 PO 10/26 Metoprolol Tartrate 12.5 MG Q12HR 09/26 2099 AC 09/29 PO 10/26 2058 0842 Sennosides 17.2 MG BEDTIME 09/26 2099 AC 09/28 PO 10/26 Fentanyl Citrate 50 MCG Q3H PRN PRN 09/26 1930 AC 09/27 IV 0134 Tramadol HCl 50 MG Q4H PRN PRN 09/26 1830 AC PO 10/01 Tramadol HCl 25 MG QID PRN 09/26 1830 AC 09/27 PO 10/01 1829 2125 Ipratropium [place] 500 MCG RTQ4H 09/26 1600 AC 09/29 INH 09/29 1501 1200 Acetaminophen 650 MG Q4H PRN PRN 09/26 1515 DC 09/28 PO 10/26 1514 0759 Acetaminophen 650 MG Q4H PRN PRN / 1515 DC RECTAL 10/26 1514 Calcium Chloride 1 GM ASDIR PRN 09/26 1515 AC IV 10/26 1514 Dextrose/Water 125 ML ASDIR PRN 09/26 1515 CKD IV 10/26 1514 Dextrose/Water 250 ML ASDIR PRN 09/26 1515 CKD IV 10/26 1514 Epinephrine 4 MG ASDIR 09/26 1515 AC Dextrose/Water 246 ML IV 10/26 1514 Glucagon 1 MG ASDIR PRN 09/26 1515 AC IM 10/26 1514 Insulin Human Regular 100 UNIT ASDIR 09/26 151 5 CKD 09/28 Sodium Chloride 99 ML IV 10/26 1514 0100 Magnesium Sulfate 100 ML ASDIR PRN 09/26 1515 A C IV 10/26 1514 Magnesium Sulfate 50 ML ASDIR PRN 09/26 1515 AC IV 10/26 1514 Magnesium Sulfate/ 100 ML ASDIR PRN 09/26 1515 AC 0510 Dextrose IV 10/26 1514 0331 Nitroglycerin/ 250 ML ASDIR 09/26 1515 AC Dextrose IV / 1514 Norepinephrine 250 ML TITRATE 09/26 1515 AC Bitartrate IV 10/26 1514 Ondansetron HCl 4 MG Q6H PRN PRN 09/26 1515 AC IV 10/26 1514 Potassium Chloride 100 ML ASDIR PRN 09/26 1515 AC /08 IV / 1514 1750 Sodium Bicarbonate 50 MEQ ASDIR PRN 09/26 1515 AC IV 10/26 1514 Sodium Chloride 1,000 ML .Q20H 09/26 1515 AC IV 10/26 1514 0219 Sodium Chloride 250 ML Q24H 09/26 1515 AC IV / 1514 Laboratory Tests: 09/29 09/29 09/29 09/28 09/28 0831 0311 0056 2304 2038 Chemistry Sodium (134 - 147 mEq/L) 135 Potassium (3.4 - 5.0 mEq/L) 4.6 Chloride (100 - 108 mEq/L) 107 Carbon Dioxide (21 - 33 mEq/l) 26 Anion Gap (0 - 20) 6 BUN (7 - 18 mg/dL) 23 H Creatinine (0.6 - 1.3 mg/dL) 1.5 H Glomerular Filtr Rate (70 - 80) 46.8 L Glucose (70 - 110 mg/dL) 107 POC Glucose (70 - 110 MG/DL) 135 H 151 H 198 H 172 H Calcium (8.0 - 10.5 mg/dL) 8.6 Magnesium (1.80 - 2.40 mg/dL) 2.48 H Total Bilirubin (0.0 - 1.0 mg/dL) 0.60 Direct Bilirubin (0.0 - 0.30 MG/DL) 0.30 Indirect Bilirubin (MG/DL) 0.30 AST (15 - 37 IUnit/L) 411 H ALT (30 - 65 IUnit/L) 402 H Total Alk Phosphatase (20 - 125 IUnit/L) 39 Total Protein (6.4 - 8.2 g/dL) 5.3 L Albumin (3.4 - 5.0 g/dL) 3.40 Hematology WBC (4.5 - 11.0 x10 3/uL) 7.2 RBC (4.00 - 5.60 x10 6/uL) 2.32 L Hgb (12.5 - 16.9 g/dL) 7.3 L Hct (37.5 - 50.7 %) 22.0 L MCV (81.0 - 99.0 fL) 94.8 MCH (27.0 - 33.0 pg) 31.5 MCHC (33.0 - 37.0 g/dL) 33.2 RDW (11.5 - 14.5 %) 14.6 H Plt Count (150 - 400 x10 3/uL) 108 L MPV (7.0 - 9.0 fL) 11.9 H Neut % (Auto) (56.0 - 77.0 %) 82.8 H Lymph % (Auto) (14.0 - 32.0 %) 9.9 L Isabella % (Auto) (4.8 - 9.0 %) 6.3 Eos % (Auto) (0.3 - 3.7 %) 0.3 Baso % (Auto) (0.0 - 2.0 %) 0.1 Neut # (Auto) (2.0 - 7.6 x10 3/uL) 5.95 Lymph # (Auto) (1.0 - 3.8 x10 3/uL) 0.71 L Isabella # (Auto) (0.1 - 0.8 x10 3/uL) 0.45 Eos # (Auto) (0.0 - 0.2 x10 3/uL) 0.02 Baso # (Auto) (0.0 - 0.2 x10 3/uL) 0.01 Abs Immat Gran (auto) (0.00 - 0.03 0.04 H x10 3/uL) Add Manual Diff NO Immature Gran % (0.0 - 2.0 %) 0.6 Nucleated RBC % (0 - 0 %) 0.0 Nucleated RBCs # (Man) (0.0 - 0.1 0.00 x10 3/uL) 09/28 09/28 1810 1407 Chemistry Sodium (134 - 147 mEq/L) 135 Potassium (3.4 - 5.0 mEq/L) 4.2 Chloride (100 - 108 mEq/L) 104 Carbon Dioxide (21 - 33 mEq/l) 24 Anion Gap (0 - 20) 11 BUN (7 - 18 mg/dL) 21 H Creatinine (0.6 - 1.3 mg/dL) 1.5 H Glomerular Filtr Rate (70 - 80) 46.8 L Glucose (70 - 110 mg/dL) 196 H POC Glucose (70 - 110 MG/DL) 147 H Calcium (8.0 - 10.5 mg/dL) 9.2 Recent Impressions: RADIOLOGY - XR CHEST 1 V 09/29 0504 Report Impression - Status: SIGNED Entered: 09/29/2022 9428 IMPRESSION: Interval development of pneumoperito neum. I have initiated contact with clinical staff to relay this critical finding. Pending callback. Impression By: [email or web address] - Gus Ramirez Free Text Obj Notes Free Text Obj Notes: General appearance: alert, awake, oriented Head/Eyes: atraumatic, normocephalic ENT: moist mucosal membranes, normal pharynx Neck: non-tender, supple/no meningismus, no JVD Cardiovascular: normal capillary refill, normal heart sounds, regular rate rhythm Respiratory: aerating well, clear to auscultatio n, symmetric expansion Abdomen: non-tender, normal bowel sounds, soft, no distention Extremities: no clubbing, no cyanosis, no edema Neuro/RN ELIGIBILITY: alert, oriented X 3, CNII-XII intact Skin: dry, intact Psychiatry: normal affect, normal judgment/insig ht Diagnosis, Assessment Plan Consultants: cardiovascular surgery Free Text DxA P Notes Free text DxA P notes: NSTEMI, 3-V CAD, SEVERE , S/P CABGX2, S/P AVR, S/P LEYDI ISOLATION - CARD/CTS SEEN, PLAN PER CTS, ON CT/KING, REPEAT ECHO EF 40-45% Continue aspirin 81 mg daily Atorvastatin 80 mg at bedtime ?pneumoperitoneum? 09/29- as per CXR report. defer to critical care for further evaluation. ANEMIA OF SURGICAL BLOOD LOSS - HGB FROM 14 TO 7 .2, TX PRN Pulmonary edema due to aortic stenosis - COMPENS ATED, ECHO EF 45-50%, DD Chest x-ray with bibasilar opacities BNP elevated at 3114 Hypertension - STABLE Resume home lisinopril 10 mg p.o. daily Hydralazine 10 mg IV every 6 hours as n eeded. Blood pressure greater than 170 Type 2 diabetes mellitus - GOOD, CONT ISS, HGBA1 C 6.8%, LDL 40 Hold home metformin, empagliflozin, and semaglu tide Low-dose sliding scale insulin before meals and at bedtime Hyperlipidemia LDL 40, CONT Atorvastatin 80 mg a t bedtime DVT prophylaxis: Heparin drip, cardiology protoc ol Diet: Carbohydrate consistent CODE STATUS: DO NOT RESUSCITATE Patient reports he has an advanced directive His medical power of banking attorney is nadeem Francois t 09/29- POD #3 AVR and CABG x2 . ?pneumoperitoneuam on CXR. awaiting critical care recs. Electronically Signed by Lisandro Russell MD on 09/19 06/13 at 1319 RPT #:[id number] END OF REPORT 2022-09-29 11:57:00-00:00 [facility] Nephrology Consultation Note REPORT#:[id number] REPORT STATUS: Signed DATE:09/29/22 TIME: 1157 PATIENT: MONICA BECK UNIT #: [id number] ROOM/BED: [facility] : 42 AGE: 82 SEX: M ATTEND: Nicolasa Maria MD ADM AUTHOR: Nila Cheung MD * ALL edits or amendments must be made on the el [employer]/computer document * History of Present Illness Reason for consult: JOSE ARMANDO HPI: Patient is a 82 YO male with past medical history of DM, HLD, went to outside hospital with CP, found to have NSTEMI. [facility] ensu ed that showed severe multivessel CAD. He is transferred to [facility] and underwent CABG and AVR on 09/26/22. Postop, patient was doing well, got e xtubated. Patient had an episode of A-fib with RVR, had amiodarone bolus. His blood pressure has been intermittently low. Has been getting IV fluid an d Lasix intermittently secondary to low urine output. Creatinine presur rima was 0.8 that went up to 1.5. Nephrology was called. Currently patient is on NS at 50 cc/h. Had Lasix 20 mg IV earlier today. Patient has not been eating drinking well as with poor appetite, today drinking a little more fluid. De nies any shortness of breath currently. No cough. On room air saturating 96 t o 97%. Complains of pain at the surgical site History - Adult longitudinal Past medical history: Denies: Atrial fibrillation, Congestive heart fa ilure. Additional medical history: 1. Hypertension 2. Hyperlipidemia 3. Type 2 diabetes mellitus 4. Restless leg syndrome 5. Aortic stenosis Additional surgical history: 1. Cholecystectomy 2. Varicose veins Additional family history: Reviewed and noncontributory Alcohol use: Denies EtOH use Drug use: Denies recreational drugs Smoking status for patients 13 years old or olde r: Never Smoker Allergies: Coded Allergies: No Known Allergies (09/24/22) Review of Systems Constitutional: Denies: chills, fatigue, fev er, generalized weakness, lethargy, malaise, recent wt loss, other. Skin: Denies: abrasion, bruising, contusion, diaphores is, ecchymosis, itching, laceration, rash, swelling, other. Eyes: Denies: redness, discharge, visual loss/blurred, itching, diplopia, eye pain, photophobia, swelling, other. ENT: Denies: ear drainage, ear ringing, earache, hear ing loss, mouth pain, nasal congestion, nose bleeding, sinus problem, sore t hroat, throat pain, throat swelling, tongue pain, tongue swelling, toothach e, voice change, other. Respiratory: Reports: GUPTA (dyspnea on exertion). Denies: hemo ptysis, non productive cough, parox nocturnal dyspnea, ple urisy, pleuritic pain, pneumonia, productive cough ( sputum), SOB, wheezing, other. Cardiovascular: Denies: chest pain, GUPTA (dyspnea on exer tion), edema, orthopnea, palpitations, parox nocturnal dyspnea, other. GI: Denies: abdominal pain, anorexia, constipation, diarrhea, dysphagia, GERD, hematemesis, hematochezia, h iatal hernia, melena, nausea, rectal pain, vomiting, other. Musculoskeletal: Denies: arthritis, extremity pain, extremity swe lling, joint pain, joint swelling, lumbar pain, myalgias, neck pain, thor acic pain, other. Endocrine: Denies: cold intolerance, heat intolerance, poly dipsia, polyphagia, polyuria, weight gain, weight loss, other. Neuro: Denies: bladder dysfunction, bowel dysfunction, change in LOC, confusion, dizziness, focal weakness, gait problem, headach e, lightheaded, numbness, seizure, slurred speech, spinning sensation, syn cope, unable to speak, vision change, weakness, other. Objective General VS/I O: Vital Signs: Date Time Temp Pulse Resp B/P B/P Pulse O2 O2 F low FiO2 Mean Ox Delivery Rate 09/29 0830 71 19 97/50 69 94 09/29 0900 73 26 111/57 81 95 09/29 0830 75 106/55 77 97 09/29 0809 94 Nasal 2 cannula 09/29 0800 71 20 108/54 77 95 09/29 0730 71 19 110/57 80 93 09/29 0700 74 21 99/56 74 95 09/29 0630 69 23 94/52 70 100 09/29 0607 74 20 100/52 74 97 09/29 0600 71 26 97 09/29 0530 71 24 94/50 68 99 09/29 0502 75 28 98/57 74 95 05/11 0501 75 21 68/43 52 96 05/11 0500 75 27 94 05/11 0430 73 21 97/55 72 99 05/11 0418 72 20 98 05/11 0400 97.8 Nasal 2 cannula 05/11 0400 73 19 106/57 78 98 05/11 0330 72 22 94/51 66 98 05/11 0300 72 19 98/57 75 99 05/11 0230 71 19 97/56 69 99 05/11 0200 71 21 109/56 77 98 05/11 0130 74 34 98/54 73 91 05/11 0100 73 34 111/55 79 93 05/11 0030 72 23 106/59 81 91 05/11 0000 97.8 Nasal 2 cannula 05/11 0000 71 19 108/57 78 94 05/10 2330 70 20 110/58 81 96 05/10 2300 71 19 117/59 85 93 05/10 2230 72 26 140/64 92 94 05/10 2200 72 20 127/59 85 94 05/10 2154 72 23 93 05/10 2130 71 21 125/58 84 94 05/10 2100 74 21 124/60 87 94 05/10 2030 73 29 118/58 83 96 05/10 1999 97.1 Nasal 2 cannula 05/10 1999 67 23 124/59 85 96 05/10 1930 Nasal 2 cannula 05/10 1930 70 21 124/53 77 95 05/10 1900 71 33 109/58 75 96 05/10 1727 75 29 89 05/10 1700 70 24 104/53 74 98 05/10 1600 69 25 99/50 70 97 05/10 1539 95 High flow 2 nasal cannula 05/10 1502 69 22 104/55 75 95 05/10 1430 72 31 109/57 79 80 05/10 1400 73 24 107/55 77 95 05/10 1355 73 28 115/82 93 05/10 1300 141 26 84 05/10 1256 67 13 92 05/10 1231 69 17 106/58 76 94 05/10 1200 96 High flow 2 nasal cannula 05/10 1200 98 22 92/65 74 73 24 hour I O ending at 0700: 09/29 0700 05/10 1900 Intake Total 1256.50 885.70 Output Total 310 270 Balance 946.50 615.70 Intake, IV 1136.50 520.70 Intake, Oral 120 365 Output, Chest 20 90 Tube Drainage Output, Urine 290 180 Patient 84.3 kg Weight Weight Bed scale Measurement Method PATIENT WEIGHT: Weight (lb): 185 Weight (oz): 13.59 Weight (kg): 84.300 Medications: Active Meds + DC'd Last 24 Hrs Ipratropium [place] (ATROVENT) 500 MCG RTQ2H PRN PRN INH Cyanocobalamin (Vitamin B-12 500 mcg tab) 500 MC G DAILY PO Ferrous Sulfate (FERROUS SULFATE) 325 MG DAILY P O Furosemide (LASIX 20MG INJ) 20 MG ONCE ONE IV (D C) Furosemide (LASIX 20MG INJ) 20 MG ONCE ONE IV (C AN) Sodium Chloride (SODIUM CHLORIDE 0.9%) 250 ML JANINE SINDY ONCE ONE IV (DC) Sodium Chloride (SODIUM CHLORIDE 0.9%) 250 ML JANINE SINDY ONCE ONE IV (DC) Albumin Human (ALBUMINAR 5% 12.5GM/250ML) 250 ML ONCE ONE IV (DC) Bisacodyl (DULCOLAX) 10 MG ONCE PRN RECTAL Magnesium Hydroxide (MILK OF MAGNESIA) 30 ML ONC E PRN PO (DC) Amiodarone HCl (AMIODARONE HCL) 450 MG ASDIR IV (CKD) Dextrose/Water (D5%W NON-DEHP) 250 ML Mupirocin (BACTROBAN 2% 22 GM OINTMENT) 1 APPLIC BID NASAL Atorvastatin Calcium (LIPITOR) 40 MG 2100 PO (DC ) Dopamine HCl/Dextrose (DOPamine 400MG/D5W 250ML) 250 ML ASDIR IV Clopidogrel Bisulfate (Plavix) 75 MG DAILY PO Polyethylene Glycol (MIRALAX) 17 GM DAILY PO Pantoprazole (PROTONIX) 40 MG DAILY@0600 PO Aspirin (ASPIRIN) 81 MG DAILY PO Amiodarone HCl (CORDARONE) 200 MG TID PO Docusate Sodium (COLACE) 100 MG BID PO Gabapentin (NEURONTIN) 200 MG BID PO Melatonin (Melatonin) 6 MG BEDTIME PO Metoprolol Tartrate (LOPRESSOR) 12.5 MG Q12HR PO Sennosides (Senna Lax 8.6 MG TABLET) 17.2 MG BED TIME PO Fentanyl Citrate (SUBLIMAZE) 50 MCG Q3H PRN PRN IV Tramadol HCl (ULTRAM) 50 MG Q4H PRN PRN PO Tramadol HCl (ULTRAM) 25 MG QID PRN PO Ipratropium [place] (ATROVENT) 500 MCG RTQ4H INH Acetaminophen (TYLENOL) 650 MG Q4H PRN PRN PO ( DC) Acetaminophen (TYLENOL) 650 MG Q4H PRN PRN RECTA L (DC) Calcium Chloride (CALCIUM CHLORIDE) 1 GM ASDIR P RN IV Dextrose/Water (DEXTROSE 10% IN WATER) 125 ML DIR PRN IV (CKD) Dextrose/Water (DEXTROSE 10% IN WATER) 250 ML DIR PRN IV (CKD) Epinephrine (ADRENALIN CHLORIDE) 4 MG ASDIR IV Dextrose/Water (DEXTROSE 5% WATER) 246 ML Glucagon (GLUCAGON) 1 MG ASDIR PRN IM Insulin Human Regular (HumuLIN R) 100 UNIT ASDIR IV (CKD) Sodium Chloride (SODIUM CHLORIDE 0.9%) 99 ML Magnesium Sulfate (MAGNESIUM SULFATE 4GM/SWFI 10 0ML) 100 ML ASDIR PRN IV Magnesium Sulfate (MAGNESIUM SULFATE 2GM/SWFI 50 ML) 50 ML ASDIR PRN IV Magnesium Sulfate/Dextrose (MAGNESIUM SULFATE 1G M/D5W 100ML) 100 ML ASDIR PRN IV Nitroglycerin/Dextrose (NITROGLYCERIN 50,000MCG/ D5W 250ML) 250 ML ASDIR IV Norepinephrine Bitartrate (NOREPINEPHRINE 8 MG/N S 250 ML) 250 ML TITRATE IV Ondansetron HCl (ZOFRAN) 4 MG Q6H PRN PRN IV Potassium Chloride (KCL 20MEQ/SWFI 100ML) 100 ML ASDIR PRN IV Sodium Bicarbonate (SODIUM BICARBONATE) 50 MEQ A SDIR PRN IV Sodium Chloride (SODIUM CHLORIDE 0.9%) 1,000 ML .Q20H IV Sodium Chloride (SODIUM CHLORIDE 0.9%) 250 ML Q2 4H IV Physical Exam General appearance: alert, awake, oriented, no r espiratory distress Head/eyes: atraumatic, normocephalic, PERRLA Neck: no JVD, no lymphadenopathy Cardiovascular: normal heart sounds, regular rat e and rhythm, no rub Respiratory: aerating well, clear to auscultatio n, no distress Abdomen: non-tender, normal bowel sounds, soft, no rebound Genitourinary: urinary catheter, urine, no bladd er distention, no flank pain Extremities: no edema, no gangrene Neuro/RN ELIGIBILITY: alert, oriented X 3, CN II-XII intact , normal speech Results Findings/Data: Laboratory Tests 09/29 09/29 09/29 09/28 09/28 0831 0311 0056 2304 2038 Chemistry Sodium (134 - 147 mEq/L) 135 Potassium (3.4 - 5.0 mEq/L) 4.6 Chloride (100 - 108 mEq/L) 107 Carbon Dioxide (21 - 33 mEq/l) 26 Anion Gap (0 - 20) 6 BUN (7 - 18 mg/dL) 23 H Creatinine (0.6 - 1.3 mg/dL) 1.5 H Glomerular Filtr Rate (70 - 80) 46.8 L Glucose (70 - 110 mg/dL) 107 POC Glucose (70 - 110 MG/DL) 135 H 151 H 198 H 172 H Calcium (8.0 - 10.5 mg/dL) 8.6 Magnesium (1.80 - 2.40 mg/dL) 2.48 H Total Bilirubin (0.0 - 1.0 mg/dL) 0.60 Direct Bilirubin (0.0 - 0.30 MG/DL) 0.30 Indirect Bilirubin (MG/DL) 0.30 AST (15 - 37 IUnit/L) 411 H ALT (30 - 65 IUnit/L) 402 H Total Alk Phosphatase (20 - 125 39 IUnit/L) Total Protein (6.4 - 8.2 g/dL) 5.3 L Albumin (3.4 - 5.0 g/dL) 3.40 09/28 09/28 1810 1407 Chemistry Sodium (134 - 147 mEq/L) 135 Potassium (3.4 - 5.0 mEq/L) 4.2 Chloride (100 - 108 mEq/L) 104 Carbon Dioxide (21 - 33 mEq/l) 24 Anion Gap (0 - 20) 11 BUN (7 - 18 mg/dL) 21 H Creatinine (0.6 - 1.3 mg/dL) 1.5 H Glomerular Filtr Rate (70 - 80) 46.8 L Glucose (70 - 110 mg/dL) 196 H POC Glucose (70 - 110 MG/DL) 147 H Calcium (8.0 - 10.5 mg/dL) 9.2 Laboratory Tests 09/291 Hematology WBC (4.5 - 11.0 x10 3/uL) 7.2 RBC (4.00 - 5.60 x10 6/uL) 2.32 L Hgb (12.5 - 16.9 g/dL) 7.3 L Hct (37.5 - 50.7 %) 22.0 L MCV (81.0 - 99.0 fL) 94.8 MCH (27.0 - 33.0 pg) 31.5 MCHC (33.0 - 37.0 g/dL) 33.2 RDW (11.5 - 14.5 %) 14.6 H Plt Count (150 - 400 x10 3/uL) 108 L MPV (7.0 - 9.0 fL) 11.9 H Neut % (Auto) (56.0 - 77.0 %) 82.8 H Lymph % (Auto) (14.0 - 32.0 %) 9.9 L Isabella % (Auto) (4.8 - 9.0 %) 6.3 Eos % (Auto) (0.3 - 3.7 %) 0.3 Baso % (Auto) (0.0 - 2.0 %) 0.1 Neut # (Auto) (2.0 - 7.6 x10 3/uL) 5.95 Lymph # (Auto) (1.0 - 3.8 x10 3/uL) 0.71 L Isabella # (Auto) (0.1 - 0.8 x10 3/uL) 0.45 Eos # (Auto) (0.0 - 0.2 x10 3/uL) 0.02 Baso # (Auto) (0.0 - 0.2 x10 3/uL) 0.01 Abs Immat Gran (auto) (0.00 - 0.03 x10 3/uL) 0. 04 H Add Manual Diff NO Immature Gran % (0.0 - 2.0 %) 0.6 Nucleated RBC % (0 - 0 %) 0.0 Nucleated RBCs # (Man) (0.0 - 0.1 x10 3/uL) 0. 00 Radiology data: Recent Impressions: RADIOLOGY - XR CHEST 1 V 09/29 3767 Report Impression - Status: SIGNED Entered: 09/29/2022 0728 IMPRESSION: Interval development of pneumoperito neum. I have initiated contact with clinical staff to relay this critical finding. Pending callback. Impression By: [email or web address] - Gus Ramirez Diagnosis, Assessment Plan Free Text DxA P Notes Free text DxA P notes: 1. JOSE ARMANDO likely prerenal insufficiency. Creatinine is stable at 1.5 this morning. We will hold off on any Lasix for now. Continue with IV fluid. Encourage p.o. fluid intake. Currently on room a ir. Repeat echo after surgery with better EF. 2. Status post CABG and AVR CT surgery following 3. Diabetes type 2 per primary team 4. Anemia PRBC transfusion if hemoglobin less th an 7. No overt GI bleed. Discussed with at bedside Thank you for the consult Echocardiogram on 09/28/2022 1. Left ventricle: Systolic function is mildly r educed. The estimated ejection fraction is 40-44%. 2. Aortic valve: There is a bioprosthetic valve. Electronically Signed by Nila Cheung MD on at 1533 RPT #:[id number] END OF REPORT 2022-09-29 10:02:00-00:00 [facility] REPORT#:[id number] REPORT STATUS: Signed DATE:09/29/22 TIME: 1002 PATIENT: MONICA BECK UNIT #: [id number] ROOM/BED: [place] [address] : 42 AGE: 82 SEX: M ATTEND: Nicolasa Maria MD ADM AUTHOR: Geneva Silverman [employer] * ALL edits or amendments must be made on the [employer]/computer document * Subjective Patient reports: No: complaints. Objective General VS/I O: Vital Signs Date Temp Pulse Resp B/P B/P Mean Pulse Ox FiO2 09/28-09/29 36.2-36.6 67-75 19-34 68-140/43-82 52-93 80-100 PATIENT WEIGHT: Weight (lb): 185 Weight (oz): 13.59 Weight (kg): 84.300 Medications: Active Meds + DC'd Last 24 Hrs Ipratropium [place] (ATROVENT) 500 MCG RTQ2H PRN PRN INH Cyanocobalamin (Vitamin B-12 500 mcg tab) 500 MC G DAILY PO Ferrous Sulfate (FERROUS SULFATE) 325 MG DAILY P O Furosemide (LASIX 20MG INJ) 20 MG ONCE ONE IV (D C) Furosemide (LASIX 20MG INJ) 20 MG ONCE ONE IV (C AN) Sodium Chloride (SODIUM CHLORIDE 0.9%) 250 ML JANINE SINDY ONCE ONE IV (DC) Sodium Chloride (SODIUM CHLORIDE 0.9%) 250 ML JANINE SINDY ONCE ONE IV (DC) Albumin Human (ALBUMINAR 5% 12.5GM/250ML) 250 ML ONCE ONE IV (DC) Bisacodyl (DULCOLAX) 10 MG ONCE PRN RECTAL Magnesium Hydroxide (MILK OF MAGNESIA) 30 ML ONC E PRN PO (DC) Amiodarone HCl (AMIODARONE HCL) 450 MG ASDIR IV (CKD) Dextrose/Water (D5%W NON-DEHP) 250 ML Mupirocin (BACTROBAN 2% 22 GM OINTMENT) 1 APPLIC BID NASAL Atorvastatin Calcium (LIPITOR) 40 MG 2100 PO Dopamine HCl/Dextrose (DOPamine 400MG/D5W 250ML) 250 ML ASDIR IV Clopidogrel Bisulfate (Plavix) 75 MG DAILY PO Polyethylene Glycol (MIRALAX) 17 GM DAILY PO Pantoprazole (PROTONIX) 40 MG DAILY@0600 PO Aspirin (ASPIRIN) 81 MG DAILY PO Amiodarone HCl (CORDARONE) 200 MG TID PO Docusate Sodium (COLACE) 100 MG BID PO Gabapentin (NEURONTIN) 200 MG BID PO Melatonin (Melatonin) 6 MG BEDTIME PO Metoprolol Tartrate (LOPRESSOR) 12.5 MG Q12HR PO Sennosides (Senna Lax 8.6 MG TABLET) 17.2 MG BED TIME PO Fentanyl Citrate (SUBLIMAZE) 50 MCG Q3H PRN PRN IV Tramadol HCl (ULTRAM) 50 MG Q4H PRN PRN PO Tramadol HCl (ULTRAM) 25 MG QID PRN PO Ipratropium [place] (ATROVENT) 500 MCG RTQ4H IN H Acetaminophen (TYLENOL) 650 MG Q4H PRN PRN PO Acetaminophen (TYLENOL) 650 MG Q4H PRN PRN RECTA L Calcium Chloride (CALCIUM CHLORIDE) 1 GM ASDIR P RN IV Dextrose/Water (DEXTROSE 10% IN WATER) 125 ML DIR PRN IV (CKD) Dextrose/Water (DEXTROSE 10% IN WATER) 250 ML DIR PRN IV (CKD) Epinephrine (ADRENALIN CHLORIDE) 4 MG ASDIR IV Dextrose/Water (DEXTROSE 5% WATER) 246 ML Glucagon (GLUCAGON) 1 MG ASDIR PRN IM Insulin Human Regular (HumuLIN R) 100 UNIT ASDIR IV (CKD) Sodium Chloride (SODIUM CHLORIDE 0.9%) 99 ML Magnesium Sulfate (MAGNESIUM SULFATE 4GM/SWFI 10 0ML) 100 ML ASDIR PRN IV Magnesium Sulfate (MAGNESIUM SULFATE 2GM/SWFI 50 ML) 50 ML ASDIR PRN IV Magnesium Sulfate/Dextrose (MAGNESIUM SULFATE 1G M/D5W 100ML) 100 ML ASDIR PRN IV Nitroglycerin/Dextrose (NITROGLYCERIN 50,000MCG/ D5W 250ML) 250 ML ASDIR IV Norepinephrine Bitartrate (NOREPINEPHRINE 8 MG/N S 250 ML) 250 ML TITRATE IV Ondansetron HCl (ZOFRAN) 4 MG Q6H PRN PRN IV Potassium Chloride (KCL 20MEQ/SWFI 100ML) 100 ML ASDIR PRN IV Sodium Bicarbonate (SODIUM BICARBONATE) 50 MEQ A SDIR PRN IV Sodium Chloride (SODIUM CHLORIDE 0.9%) 1,000 ML .Q20H IV Sodium Chloride (SODIUM CHLORIDE 0.9%) 250 ML Q2 4H IV Physical Exam General appearance: alert, awake, oriented, no a cute distress, pleasant, conversational Neck: non-tender Cardiovascular: CV assessment: regular rate and rhythm Respiratory: decreased breath sounds, on oxygen, no distress Abdomen: soft, non-tender, normal bowel sounds, no distention Genitourinary: urinary catheter, urine Lower extremity: LE assessment: no edema Musculoskeletal: normal inspection Neuro/RN ELIGIBILITY: alert, oriented X 3, normal speech Skin: dry Psychiatry: normal affect, normal mood Results Findings/Data: Laboratory Tests 09/29 09/29 09/29 09/28 09/28 0831 0311 7057 4036 8964 Chemistry Sodium (134 - 147 mEq/L) 135 Potassium (3.4 - 5.0 mEq/L) 4.6 Chloride (100 - 108 mEq/L) 107 Carbon Dioxide (21 - 33 mEq/l) 26 Anion Gap (0 - 20) 6 BUN (7 - 18 mg/dL) 23 H Creatinine (0.6 - 1.3 mg/dL) 1.5 H Glomerular Filtr Rate (70 - 80) 46.8 L Glucose (70 - 110 mg/dL) 107 POC Glucose (70 - 110 MG/DL) 135 H 151 H 198 H 172 H Calcium (8.0 - 10.5 mg/dL) 8.6 Magnesium (1.80 - 2.40 mg/dL) 2.48 H Total Bilirubin (0.0 - 1.0 mg/dL) 0.60 Direct Bilirubin (0.0 - 0.30 MG/DL) 0.30 Indirect Bilirubin (MG/DL) 0.30 AST (15 - 37 IUnit/L) 411 H ALT (30 - 65 IUnit/L) 402 H Total Alk Phosphatase (20 - 125 IUnit/L) 39 Total Protein (6.4 - 8.2 g/dL) 5.3 L Albumin (3.4 - 5.0 g/dL) 3.40 09/28 09/28 09/28 09/28 1810 1407 1138 1126 Chemistry Sodium (134 - 147 mEq/L) 135 135 Potassium (3.4 - 5.0 mEq/L) 4.2 4.4 Chloride (100 - 108 mEq/L) 104 105 Carbon Dioxide (21 - 33 mEq/l) 24 26 Anion Gap (0 - 20) 11 8 BUN (7 - 18 mg/dL) 21 H 17 Creatinine (0.6 - 1.3 mg/dL) 1.5 H 1.3 Glomerular Filtr Rate (70 - 80) 46.8 L 55.5 L Glucose (70 - 110 mg/dL) 196 H 222 H POC Glucose (70 - 110 MG/DL) 147 H 218 H Calcium (8.0 - 10.5 mg/dL) 9.2 9.1 Laboratory Tests 09/29 0311 Hematology WBC (4.5 - 11.0 x10 3/uL) 7.2 RBC (4.00 - 5.60 x10 6/uL) 2.32 L Hgb (12.5 - 16.9 g/dL) 7.3 L Hct (37.5 - 50.7 %) 22.0 L MCV (81.0 - 99.0 fL) 94.8 MCH (27.0 - 33.0 pg) 31.5 MCHC (33.0 - 37.0 g/dL) 33.2 RDW (11.5 - 14.5 %) 14.6 H Plt Count (150 - 400 x10 3/uL) 108 L MPV (7.0 - 9.0 fL) 11.9 H Neut % (Auto) (56.0 - 77.0 %) 82.8 H Lymph % (Auto) (14.0 - 32.0 %) 9.9 L Isabella % (Auto) (4.8 - 9.0 %) 6.3 Eos % (Auto) (0.3 - 3.7 %) 0.3 Baso % (Auto) (0.0 - 2.0 %) 0.1 Neut # (Auto) (2.0 - 7.6 x10 3/uL) 5.95 Lymph # (Auto) (1.0 - 3.8 x10 3/uL) 0.71 L Isabella # (Auto) (0.1 - 0.8 x10 3/uL) 0.45 Eos # (Auto) (0.0 - 0.2 x10 3/uL) 0.02 Baso # (Auto) (0.0 - 0.2 x10 3/uL) 0.01 Abs Immat Gran (auto) (0.00 - 0.03 x10 3/uL) 0. 04 H Add Manual Diff NO Immature Gran % (0.0 - 2.0 %) 0.6 Nucleated RBC % (0 - 0 %) 0.0 Nucleated RBCs # (Man) (0.0 - 0.1 x10 3/uL) 0.0 0 Laboratory Tests 09/28 1126 Urines Ur Random Creatinine (mg/dL) 182.6 Ur Random Sodium (MEQ/L) 32 Laboratory Tests 09/29 0311 Chemistry Magnesium (1.80 - 2.40 mg/dL) 2.48 H Radiology data: Recent Impressions: RADIOLOGY - XR CHEST 1 V 09/29 0504 Report Impression - Status: SIGNED Entered: 09/29/2022 0728 IMPRESSION: Interval development of pneumoperito neum. I have initiated contact with clinical staff to relay this critical finding. Pending callback. Impression By: [email or web address] - Gus Ramirez Results: labs reviewed, vital signs reviewed, [facility] personally rev'd Telemetry Interpretation: Sinus rhythm Diagnosis, Assessment Plan Plan discussed with: patient, collaborating MD, nurse Free Text DxA P Notes Free Text DxA P Notes: 82 YO male with MHx of DM, HLD, . He presented to [facility] with CP, found to have NSTEMI. LHC ensued that showed sev ere multivessel CAD. He is transferred to us and underwent CABG and AVR on 09/26/22. 1. Multivessel CAD S/p CABG x2 (NAIR to LAD and SVG to OM), ALAA, a nd SAVR on DAPT, BB, statin acceptable hemodynamics post-op care per CTS Positive fluid balance, diurese per CTS 2. s/p SAVR continue DAPT 3. Hypertension BP Stable continue BB 4. Diabetes mellitus glucose control per critical care at 1334 Electronically Signed by Jakob Pa MD on at 2019 RPT #:[id number] END OF REPORT 2022-09-29 08:37:00-00:00 [facility] ([facility]) DT Operative Note REPORT#:[id number] REPORT STATUS: Signed DATE:09/29/22 TIME: 836 PATIENT: MONICA BECK UNIT #: [id number] ROOM/BED: [place] [address] : 42 AGE: 82 SEX: M ATTEND: Nicolasa Maria MD ADM AUTHOR: Jose Guadalupe Chacon MD * ALL edits or amendments must be made on the [employer]/computer document * Operative Report Operative Note Note: I assisted Dr Maria in the andrews aspects of this operation, including the CABGs and AoV Jose Guadalupe Chacon MD Electronically Signed by Jose Guadalupe Chacon MD on 09/19 06/13 at 0839 RPT #:[id number] END OF REPORT 2022-09-29 07:33:00-00:00 [facility] ([facility]) Critical Care Progress Note REPORT#:[id number] REPORT STATUS: Signed DATE:09/29/22 TIME: 07 PATIENT: MONICA BECK UNIT #: [id number] ROOM/BED: [place] [address] : 42 AGE: 82 SEX: M ATTEND: Nicolasa Maria MD ADM AUTHOR: Milton Mast MD * ALL edits or amendments must be made on the [employer]/computer document * Subjective Chief complaint: CABG HPI: 82-year-old male with history of HTN, HL, NIDDM, aortic stenosis and restless leg syndrome, who presented to outside hospital with chest pain and found to have non-STEMI. Cardiac catheter revealed severe multivessel coronary artery disease. Patient underwent A VR (25 INSPIRIS), CABG X2 (NAIR-LAD, SVG-OM), ALAA, EVH (RGSV) and posterior per icardiotomy today at 09/26/2022. EF was 30-35% and it slightly improved postop 40% on ANKUR. Crystalloid 1.8 L, albumin 150, urine output 600, Cell Saver 250. Surgery went well so patient was extubated and transferred to CVICU postop in a stable surgical condition. He was weaned off all vasopressors coming off pump and is currently on nitroglycerin and insulin drip. Comments: Out of bed in the chair Urine output 295 cc overnight Given fluid bolus then Lasix this a.m. A-fib converted to sinus rhythm BP soft, off amiodarone drip Remains on insulin drip CTs output 25 cc and 0 Objective General VS/I O Last Documented: Result Date Time Pulse Ox 95 09/29 0700 B/P 99/56 09/29 0700 B/P Mean 74 09/29 0700 Pulse 74 09/29 0700 Resp 21 09/29 0700 O2 Delivery Nasal cannula 09/29 0400 O2 Flow Rate 2 09/29 0400 Temp 97.8 09/29 0400 24 hour I O ending at 0700: 09/29 0700 05 1900 Intake Total 1256.50 885.70 Output Total 310 270 Balance 946.50 615.70 Intake, IV 1136.50 520.70 Intake, Oral 120 365 Output, Chest 20 90 Tube Drainage Output, Urine 290 180 Patient 84.3 kg Weight Weight Bed scale Measurement Method PATIENT WEIGHT: Weight (lb): 185 Weight (oz): 13.59 Weight (kg): 84.300 Medications: Active Meds + DC'd Last 24 Hrs Ipratropium [place] (ATROVENT) 500 MCG RTQ2H PRN PRN INH Cyanocobalamin (Vitamin B-12 500 mcg tab) 500 MC G DAILY PO Ferrous Sulfate (FERROUS SULFATE) 325 MG DAILY P O Furosemide (LASIX 20MG INJ) 20 MG ONCE ONE IV (D C) Furosemide (LASIX 20MG INJ) 20 MG ONCE ONE IV (C AN) Sodium Chloride (SODIUM CHLORIDE 0.9%) 250 ML JANINE SINDY ONCE ONE IV (DC) Sodium Chloride (SODIUM CHLORIDE 0.9%) 250 ML JANINE SINDY ONCE ONE IV (DC) Albumin Human (ALBUMINAR 5% 12.5GM/250ML) 250 ML ONCE ONE IV (DC) Bisacodyl (DULCOLAX) 10 MG ONCE PRN RECTAL Magnesium Hydroxide (MILK OF MAGNESIA) 30 ML ONC E PRN PO (DC) Amiodarone HCl (AMIODARONE HCL) 450 MG ASDIR IV (CKD) Dextrose/Water (D5%W NON-DEHP) 250 ML Mupirocin (BACTROBAN 2% 22 GM OINTMENT) 1 APPLIC BID NASAL Atorvastatin Calcium (LIPITOR) 40 MG 2100 PO Dopamine HCl/Dextrose (DOPamine 400MG/D5W 250ML) 250 ML ASDIR IV Clopidogrel Bisulfate (Plavix) 75 MG DAILY PO Polyethylene Glycol (MIRALAX) 17 GM DAILY PO Pantoprazole (PROTONIX) 40 MG DAILY@0600 PO Aspirin (ASPIRIN) 81 MG DAILY PO Amiodarone HCl (CORDARONE) 200 MG TID PO Docusate Sodium (COLACE) 100 MG BID PO Gabapentin (NEURONTIN) 200 MG BID PO Melatonin (Melatonin) 6 MG BEDTIME PO Metoprolol Tartrate (LOPRESSOR) 12.5 MG Q12HR PO Sennosides (Senna Lax 8.6 MG TABLET) 17.2 MG BED TIME PO Fentanyl Citrate (SUBLIMAZE) 50 MCG Q3H PRN PRN IV Tramadol HCl (ULTRAM) 50 MG Q4H PRN PRN PO Tramadol HCl (ULTRAM) 25 MG QID PRN PO Ipratropium [place] (ATROVENT) 500 MCG RTQ4H INH Acetaminophen (TYLENOL) 650 MG Q4H PRN PRN PO Acetaminophen (TYLENOL) 650 MG Q4H PRN PRN RECTA L Calcium Chloride (CALCIUM CHLORIDE) 1 GM ASDIR P RN IV Dextrose/Water (DEXTROSE 10% IN WATER) 125 ML DIR PRN IV (CKD) Dextrose/Water (DEXTROSE 10% IN WATER) 250 ML DIR PRN IV (CKD) Epinephrine (ADRENALIN CHLORIDE) 4 MG ASDIR IV Dextrose/Water (DEXTROSE 5% WATER) 246 ML Glucagon (GLUCAGON) 1 MG ASDIR PRN IM Insulin Human Regular (HumuLIN R) 100 UNIT ASDIR IV (CKD) Sodium Chloride (SODIUM CHLORIDE 0.9%) 99 ML Magnesium Sulfate (MAGNESIUM SULFATE 4GM/SWFI 10 0ML) 100 ML ASDIR PRN IV Magnesium Sulfate (MAGNESIUM SULFATE 2GM/SWFI 50 ML) 50 ML ASDIR PRN IV Magnesium Sulfate/Dextrose (MAGNESIUM SULFATE 1G M/D5W 100ML) 100 ML ASDIR PRN IV Nitroglycerin/Dextrose (NITROGLYCERIN 50,000MCG/ D5W 250ML) 250 ML ASDIR IV Norepinephrine Bitartrate (NOREPINEPHRINE 8 MG/N S 250 ML) 250 ML TITRATE IV Ondansetron HCl (ZOFRAN) 4 MG Q6H PRN PRN IV Potassium Chloride (KCL 20MEQ/SWFI 100ML) 100 ML ASDIR PRN IV Sodium Bicarbonate (SODIUM BICARBONATE) 50 MEQ A SDIR PRN IV Sodium Chloride (SODIUM CHLORIDE 0.9%) 1,000 ML .Q20H IV Sodium Chloride (SODIUM CHLORIDE 0.9%) 250 ML Q2 4H IV Results Findings/data: Laboratory Tests 09/29 09/29 09/28 09/28 09/28 0311 0056 2304 2038 1810 Chemistry Sodium (134 - 147 mEq/L) 135 135 Potassium (3.4 - 5.0 mEq/L) 4.6 4.2 Chloride (100 - 108 mEq/L) 107 104 Carbon Dioxide (21 - 33 mEq/l) 26 24 Anion Gap (0 - 20) 6 11 BUN (7 - 18 mg/dL) 23 H 21 H Creatinine (0.6 - 1.3 mg/dL) 1.5 H 1.5 H Glomerular Filtr Rate (70 - 80) 46.8 L 46.8 L Glucose (70 - 110 mg/dL) 107 196 H POC Glucose (70 - 110 MG/DL) 151 H 198 H 172 H Calcium (8.0 - 10.5 mg/dL) 8.6 9.2 Magnesium (1.80 - 2.40 mg/dL) 2.48 H Total Bilirubin (0.0 - 1.0 mg/dL) 0.60 Direct Bilirubin (0.0 - 0.30 MG/DL) 0.30 Indirect Bilirubin (MG/DL) 0.30 AST (15 - 37 IUnit/L) 411 H ALT (30 - 65 IUnit/L) 402 H Total Alk Phosphatase (20 - 125 39 IUnit/L) Total Protein (6.4 - 8.2 g/dL) 5.3 L Albumin (3.4 - 5.0 g/dL) 3.40 09/28 09/28 09/28 09/28 1407 1138 1126 0737 Chemistry Sodium (134 - 147 mEq/L) 135 Potassium (3.4 - 5.0 mEq/L) 4.4 Chloride (100 - 108 mEq/L) 105 Carbon Dioxide (21 - 33 mEq/l) 26 Anion Gap (0 - 20) 8 BUN (7 - 18 mg/dL) 17 Creatinine (0.6 - 1.3 mg/dL) 1.3 Glomerular Filtr Rate (70 - 80) 55.5 L Glucose (70 - 110 mg/dL) 222 H POC Glucose (70 - 110 MG/DL) 147 H 218 H 162 H Calcium (8.0 - 10.5 mg/dL) 9.1 Laboratory Tests 09/29 0311 Hematology WBC (4.5 - 11.0 x10 3/uL) 7.2 RBC (4.00 - 5.60 x10 6/uL) 2.32 L Hgb (12.5 - 16.9 g/dL) 7.3 L Hct (37.5 - 50.7 %) 22.0 L MCV (81.0 - 99.0 fL) 94.8 MCH (27.0 - 33.0 pg) 31.5 MCHC (33.0 - 37.0 g/dL) 33.2 RDW (11.5 - 14.5 %) 14.6 H Plt Count (150 - 400 x10 3/uL) 108 L MPV (7.0 - 9.0 fL) 11.9 H Neut % (Auto) (56.0 - 77.0 %) 82.8 H Lymph % (Auto) (14.0 - 32.0 %) 9.9 L Isabella % (Auto) (4.8 - 9.0 %) 6.3 Eos % (Auto) (0.3 - 3.7 %) 0.3 Baso % (Auto) (0.0 - 2.0 %) 0.1 Neut # (Auto) (2.0 - 7.6 x10 3/uL) 5.95 Lymph # (Auto) (1.0 - 3.8 x10 3/uL) 0.71 L Isabella # (Auto) (0.1 - 0.8 x10 3/uL) 0.45 Eos # (Auto) (0.0 - 0.2 x10 3/uL) 0.02 Baso # (Auto) (0.0 - 0.2 x10 3/uL) 0.01 Abs Immat Gran (auto) (0.00 - 0.03 x10 3/uL) 0. 04 H Add Manual Diff NO Immature Gran % (0.0 - 2.0 %) 0.6 Nucleated RBC % (0 - 0 %) 0.0 Nucleated RBCs # (Man) (0.0 - 0.1 x10 3/uL) 0. 00 Laboratory Tests 09/28 1126 Urines Ur Random Creatinine (mg/dL) 182.6 Ur Random Sodium (MEQ/L) 32 Laboratory Tests 09/29/22 0311: [Embedded Image Not Available] 09/28/22 1810: [Embedded Image Not Available] 09/28/22 1126: [Embedded Image Not Available] Radiology data Recent Impressions: RADIOLOGY - XR CHEST 1 V 09/29 0504 Report Impression - Status: SIGNED Entered: 09/29/2022 0728 IMPRESSION: Interval development of pneumoperito neum. I have initiated contact with clinical staff to relay this critical finding. Pending callback. Impression By: [email or web address] - Gus Ramirez Free Text Obj Notes Free Text Obj Notes: General appearance: Elderly pale looking male in no acute distress, interactive HEENT: atraumatic, normocephalic, dry mucosal me mbranes Neck: full range of motion, supple/no meningismu s Cardiovascular: S1-S2 regular rate and rhythm Respiratory: symmetric expansion, no acute respi ratory distress Abdomen: soft, non-tender, no distention, no gua rding Genitourinary: king with clear urine Extremities: pedal pulses palpable, moves all, n o clubbing, no cyanosis, no edema Musculoskeletal: normal inspection, no muscle sp asm Neuro/RN ELIGIBILITY: Alert and oriented x3, CNII-XII gross ly intact, no motor deficits Skin: dry, intact and clean surgery dressing Diagnosis, Assessment Plan Problem list/A P: 1. CAD (coronary artery disease) 2. S/P CABG x 2 3. S/P AVR 4. Severe aortic stenosis Free text A P: 82-year-old male with history of HTN, HL, NIDDM, aortic stenosis and restless leg syndrome, who presented to outside hospital with chest pain and found to have non-STEMI. Cardiac catheter revealed severe multivessel coronary artery disease. Patient underwent A VR (25 INSPIRIS), CABG X2 (NAIR-LAD, SVG-OM), ALAA, EVH (RGSV) and posterior per icardiotomy today at 09/26/2022. EF was 30-35% and it slightly improved postop 40% on ANKUR. Crystalloid 1.8 L, albumin 150, urine output 600, Cell Saver 250. Surgery went well so patient was extubated and transferred to CVICU postop in a stable surgical condition. He was weaned off all vasopressors coming off pump and is currently on nitroglycerin and insulin drip. Neuro: Appears intact, multimodal pain control Respiratory: Sats well, wean O2, encourage I-S, ABG and CXR reviewed Cardiovascular: HD stable of f vasopressors, wean nitroglycerin drip, keep CTs to suction Renal: strict I/Os, monitor Cr and electrolytes, lactic acidosis, judicious resuscitation GI: bedside swallow then oral diet, bowel regime n, monitor LFTs, replete hypokalemia ID: reactive leukocytosis, trend WBC, co ntinue periop antibiotics per protocol Hem: acute postop anemia, co agulopathy and thrombocytopenia, monitor Hgb and CTs output, transfuse blood products as needed Endo: Blood glucose control with insulin gtt per protocol Misc: PT and OT consult, DVT and GI ppx with DAP T and PPI 09/27 Remains neuro intact, continue multimodal pain c ontrol Sats well, continue to wean O2, encourage I-S, A BG and CXR reviewed HD unstable back on vasopressors, attempt to wea n, check CVP, bolus as needed Cr stable, good urine output, lactic acidosis cl eared s/p resuscitation, repleted hypocalcemia Oral diet as tolerated, christopher l regimen, monitor gastric distention on x-ray, mild transaminitis No fevers or leukocytosis, given periop antibiot ics Hgb appears stable, no evidence of active bleed, monitor CTs output Blood glucose control with insulin drip, transit ion to sliding scale insulin Encourage PT/OT and out of bed as tolerated DVT and GI prophylaxis with DAPT and PPI 09/28 Remains neuro intact, continue multimodal pain c ontrol Sats well, continue to wean O2, encourage I-S, C XR reviewed HD stable weaned off vasopressors, low CVP s/p r esuscitation, amiodarone per protocol for A-fib Mild JOSE ARMANDO with uptrending Cr, given IVF and Lasix, monitor UOP and electrolytes, obtain urine lytes Oral diet as tolerated, bowel regimen, resolved transaminitis No fevers or leukocytosis, no ID issues at this time Acute postop anemia and thro mbocytopenia, hgb and plt appear stable, no evidence of active bleed, monitor CTs output, remove per CT surgery Blood glucose control with insulin drip, plan to transition to sliding scale insulin Encourage PT/OT and out of bed as tolerated DVT and GI prophylaxis with DAPT and PPI 09/29 Remains neuro intact, continue multimodal pain c ontrol Sats well on room air, continue I-S, CXR reviewe d HD stable off vasopressors s/p resuscitation, A- fib converted to SR, continue amiodarone JOSE ARMANDO with uptrending Cr, given fluids, hold off o n diuresis, monitor UOP and electrolytes Tolerating oral diet, aggressive bowel r egimen, has pneumoperitoneum on x-ray, serial abdominal exam, no further imaging or int ervention per CT surgery, transaminitis, trend LFTs No fevers or leukocytosis, no ID issues at this time Hgb and plt remain stable, no evidence of active bleed, remove chest tubes Blood glucose control with insulin drip, transitioned to sliding scale insulin Encourage PT/OT and out of bed as tolerated, dis po plan likely home DVT and GI prophylaxis with DAPT and PPI Consultants: cardiovascular surgery Plan discussed with: patient , consultants, nurse, interdisc care team, pharmacy/ pharmacist Critical care time: Minutes: 39 Electronically Signed by Milton Mast MD on 09/19 08/11 at 1245 [facility] #:[id number] END OF REPORT 2022-09-29 06:48:00-00:00 [facility] Cardiothoracic Surgery Prog REPORT#:[id number] REPORT STATUS: Signed DATE:09/29/22 TIME: 0648 PATIENT: MONICA BECK UNIT #: [id number] ROOM/BED: [place] [id number] : 42 AGE: 82 SEX: M ATTEND: Nicolasa Maria MD ADM AUTHOR: Analilia Erwin Physic * ALL edits or amendments must be made on the [employer]/computer document * General Post-op: day 3 (1) Status post: 09/26/22 ROCEDURES: 1. Aortic valve replacement (25 Inspiris valve) . 2. Coronary artery bypass graft surgery x2 (CASTRO A to LAD, saphenous vein to marginal). 3. Amputation of left atrial appendage. 4. Endoscopic vein harvest (right greater saphe nous vein). 5. Posterior pericardiotomy. Subjective Chief complaint: Pre CABG, AVR eval Review of Systems Constitutional: Denies: chills, fever, malaise. Allergy/Immun: Denies: allergic reaction. Respiratory: Denies: SOB. Cardiovascular: Denies: chest pain, palpitations. : Denies: dysuria, hematuria. Heme: Denies: bleeding. Neuro: Denies: dizziness, headache, vision change. All systems rev neg: except as marked Objective General VS/I O Last Documented: Result Date Time Pulse Ox 98 09/29 0418 Pulse 72 09/29 0418 Resp 20 09/29 0418 O2 Delivery Nasal cannula 09/30 399 O2 Flow Rate 2 09/30 399 Temp 97.8 09/29 0400 B/P 106/57 09/29 0400 B/P Mean 78 09/30 399 24 hour I O ending at 0700: 09/29 0700 09/28 1900 Intake Total 608.50 885.70 Output Total 195 270 Balance 413.50 615.70 Intake, IV 548.50 520.70 Intake, Oral 60 365 Output, Chest 20 90 Tube Drainage Output, Urine 175 180 Patient 84.3 kg Weight Weight Bed scale Measurement Method PATIENT WEIGHT: Weight (lb): 185 Weight (oz): 13.59 Weight (kg): 84.300 Physical Exam General appearance: alert, awake, oriented Wound/incision: Location: Sternum dry, No oozing HEENT: anicteric, mucosal membranes moist Neck: non-tender, supple/no meningismus Cardiovascular: normal heart sounds, a fib Murmur: Systolic 3/6 Respiratory: aerating well, symmetric expansion, no distress Abdomen: soft, non-tender, no distention Extremities: moves all Neuro/RN ELIGIBILITY: alert, oriented X 3, normal speech, n o motor deficits Psychiatry: normal affect, normal mood Diagnosis, Assessment Plan Hospital course to date: Mr Beck a very pleasant 82-year-old male with past medical history of diabetes, hyperlipidemia, restless leg syndrome aortic valve stenosis who presented to [facility] complaining of substernal chest pain across the anterior chest positive for n ausea and diaphoresis. CT chest showed small to moderate bilateral pleural effusions, ascending aorta measuring 4.2 cm. Cardiac enzymes elevated pat ient deemed non-STEMI. He was taken to the [facility] coronary angiogram revealed severe multivessel coronary artery disease. Patient started on heparin drip and transferred to [facility] for possible CABG and AVR. PLAN Coronary angiogram images will be uploaded in [employer] system Dr Maria explained to the patient his family t he angiogram findings and echocardiogram findings and recommended coronary artery bypass graft and aortic valve replacement. The surgery, risks involved, STS score, benefits, complications and alternatives were expl ained to the patient including risk of stroke, respiratory failure, need for tracheosto my, renal failure requiring dialysis, bleeding, infection. Patient acknowled ged understanding and is willing to proceed Initiate preop work-up for AVR Carotid ultrasound BLE venous doppler for vein mapping and marking UA to rule out UTI We will tentatively schedule patient for AVR on 09/26 Preop assessment ongoing Denies chest pain, no shortness of breath Remains on heparin drip Carotid ultrasound showed less than 50% stenosis bilaterally Noncontrasted CT chest performed at [facility] reviewed with Dr. Maria. Images will be uploaded in our system. Coronary angiogram images uploaded in [employer] o Plan for CABG and AVR tomorr ow morning. The surgery, risks involved, STS score, benefits, complications and alternatives were ex plained to the patient. He acknowledged understanding and is willing to pro ceed. Patient changed code status to FULL CODE as he i s going for surgery N.p.o. after midnight 09/27/22 POD 1 AAOx3 Respiratory: 3 l NC, wwean as tolerated. Encourage IS, Deep Breathing, CXR reviewed Cardiac: remains sinus rhtyhm. Pacing wires on s tandby GI: Continue Bowel regimen, no bm yet UO: 1200 Continue PT/OT Disposition: DVT prophylaxis Labs reveiwed- replace electrolytes as needed Patient seen and examined by Dr. Maria. Plan o f care discussed with multidisciplinary team 09/28/22 POD 2 AAOx3 Respiratory: On 2 L NC, 100%, wean as tolerated. Encourage IS, Deep Breathing, CXR reviewed, chest tube in place continue to d rain 300 cc Cardiac: Atrial fibrillation today. Amio bolus g iven, hypotension when moving to the chair. HGB trending down, Will repeat this Am. GI: Passing gas, continue Bowel regimen : King in place, UO: 425 Continue PT/OT Disposition: Pending course DVT prophylaxis Labs reveiwed- replace electrolytes as needed Patient seen and examined by Dr. Maria. Plan o f care discussed with multidisciplinary team 09/29/22 POD 3 AAOx3 Respiratory: On room air, 99% Encourage IS, Deep Breathing, CXR reviewed, CT in place, Still outputs high- continue to monitor. Cardiac: Sinus rhtyhm. Pacer on standby. HGB trending down, Will monitor and repeat. GI: Passing gas, continue Bowel regimen, elevati on liver enzymes likely from amiodarone, will hold Amio for now. : King in place, UO: Urine output low, will consult renal. Victoria t was started on dopamine yesterday subsequently went into A-fib RVR. Amio bolus was given Continue PT/OT Disposition: Pending course DVT prophylaxis Labs reveiwed- replace electrolytes as needed Patient seen and examined by Dr. Maria. Plan o f care discussed with multidisciplinary team Consultants: cardiovascular surgery at 1600 at 0244 RPT #:[id number] END OF REPORT 2022-09-28 12:01:00-00:00 [facility] Hospitalist Progress Note REPORT#:[id number] REPORT STATUS: Signed DATE:09/28/22 TIME: 1201 PATIENT: MONICA BECK UNIT #: [id number] ROOM/BED: [place] [id number] : 42 AGE: 82 SEX: M ATTEND: Nicolasa Maria MD ADM AUTHOR: Chiki Fernandez MD * ALL edits or amendments must be made on the [employer]/computer document * Subjective Chief complaint: IN BED, NO COMPLAINTS HPI: 82-year-old male with past m edical history of hypertension, hyperlipidemia, type 2 diabetes mellitus, restless leg syndro me, and aortic stenosis is transferred here from [facility], where he presen tamra today with complaint of chest pain for the past few weeks. Patie nt complained of substernal chest pain associated with diaphoresis. He was found to hav e elevated troponin I and cardiology was consulted. Patient had left heart catheterization, the results of which are not available at this time. He was then transferred to [facility] for evaluation by cardiothoracic surge ry. Objective General VS/I O: Vital Signs: Date Time Temp Pulse Resp B/P B/P Pulse O2 O2 F low FiO2 Mean Ox Delivery Rate 09/28 0828 100 High flow 3 nasal cannula 09/28 0700 Nasal 2 cannula 09/28 0700 108/58 78 09/28 0700 83 24 99 09/28 0600 91 50 101/54 68 05/10 0500 103/63 79 / 0500 87 20 107/48 65 94 /10 0400 117/61 82 / 0400 89 20 113/49 67 98 / 0339 99 Nasal 2 cannula 09/28 0300 121/57 82 / 0300 87 19 104/45 61 95 05/10 0200 102/61 76 05/ 0200 87 18 104/46 62 98 05/10 0103 110/52 75 05/10 0100 85 16 103/46 62 100 05/10 0000 109/57 79 05/10 0000 90 19 109/47 65 97 05/09 2300 94/52 66 05/09 2300 97 22 100/44 60 96 05/09 2200 123/58 83 05/09 2200 99 24 107/50 66 95 05/09 2100 120/68 89 05/09 2100 81 22 130/55 77 95 05/09 1999 97.9 05/09 1999 114/61 80 05/09 2000 83 19 124/52 73 95 05/09 1925 94 Nasal 2 cannula 05/09 1920 High flow 3 nasal cannula 05/09 1900 86 31 121/53 75 91 05/09 1800 84 29 125/49 72 95 05/09 1745 110/56 80 05/09 1745 84 25 110/42 63 95 05/09 1730 110/56 80 05/09 1730 85 33 96/43 63 92 05/09 1715 119/53 82 05/09 1715 82 30 120/44 67 84 05/09 1700 127/55 79 05/09 1700 83 24 121/44 67 92 05/09 1645 110/55 78 05/09 1645 79 21 116/40 62 95 05/09 1630 115/56 81 05/09 1630 78 24 108/40 60 93 05/09 1605 109/54 78 05/09 1605 85 30 96/38 56 92 05/09 1600 120/58 83 05/09 1600 82 29 105/39 59 93 05/09 1546 110/57 74 05/09 1546 87 32 109/51 70 89 05/09 1530 120/58 84 05/09 1530 79 25 112/42 64 95 05/09 1515 112/58 82 05/09 1515 82 24 117/45 68 94 05/09 1506 82 27 94/43 62 94 05/09 1500 122/57 85 05/09 1500 82 29 109/43 64 94 05/09 1445 124/58 84 05/09 1445 85 28 127/45 71 94 05/09 1430 140/65 92 05/09 1430 102 24 155/64 95 97 05/09 1415 147/65 93 05/09 1415 83 24 148/56 85 95 05/09 1400 139/65 93 05/09 1400 80 22 149/56 86 95 09/27 1353 81 22 147/55 84 95 09/27 1345 148/65 94 09/27 1345 100 20 149/61 90 95 09/27 1330 139/63 90 09/27 1330 80 22 150/57 87 95 09/27 1316 149/64 92 09/27 1316 81 22 149/57 86 94 09/27 1300 150/83 111 09/27 1300 103 16 164/68 99 09/27 1253 160/73 105 09/27 1253 106 23 173/71 104 09/27 1231 162/72 104 09/27 1231 86 45 157/57 87 89 09/27 1214 139/67 89 09/27 1214 86 26 146/59 86 83 24 hour I O ending at 0700: 09/28 0700 09/27 1900 Intake Total 1374.00 870.00 Output Total 825 720 Balance 549.00 150.00 Intake, IV 874.00 520.00 Intake, Oral 500 350 Output, Chest 400 345 Tube Drainage Output, Urine 425 375 Patient 177 lb 173 lb Weight Weight Standing scale Measurement Method PATIENT WEIGHT: Weight (lb): 177 Weight (oz): 4.03 Weight (kg): 80.400 Medications: Active Meds + DC'd Last 24 Hrs Ipratropium [place] (ATROVENT) 500 MCG RTQ2H PRN PRN INH Cyanocobalamin (Vitamin B-12 500 mcg tab) 500 MC G DAILY PO Ferrous Sulfate (FERROUS SULFATE) 325 MG DAILY P O Bisacodyl (DULCOLAX) 10 MG ONCE PRN RECTAL Magnesium Hydroxide (MILK OF MAGNESIA) 30 ML ONC E PRN PO Amiodarone HCl (AMIODARONE HCL) 450 MG ASDIR IV (CKD) Dextrose/Water (D5%W NON-DEHP) 250 ML Mupirocin (BACTROBAN 2% 22 GM OINTMENT) 1 APPLIC BID NASAL Amiodarone HCl (NEXTERONE 150MG/D5W 100ML) 100 M L STAT STA IV (DC) Furosemide (LASIX 20MG INJ) 20 MG ONCE ONE IV (D C) Albumin Human (ALBUMINAR 5% 12.5GM/250ML) 250 ML Q30M IV (DC) Atorvastatin Calcium (LIPITOR) 40 MG 2100 PO Lactated Ringer's (LACTATED RINGERS) 500 ML BOLU S ONCE ONE IV (DC) Dopamine HCl/Dextrose (DOPamine 400MG/D5W 250ML) 250 ML ASDIR IV Clopidogrel Bisulfate (Plavix) 75 MG DAILY PO Polyethylene Glycol (MIRALAX) 17 GM DAILY PO Pantoprazole (PROTONIX) 40 MG DAILY@0600 PO Aspirin (ASPIRIN) 81 MG DAILY PO Amiodarone HCl (CORDARONE) 200 MG TID PO Docusate Sodium (COLACE) 100 MG BID PO Gabapentin (NEURONTIN) 200 MG BID PO Melatonin (Melatonin) 6 MG BEDTIME PO Metoprolol Tartrate (LOPRESSOR) 12.5 MG Q12HR PO Sennosides (Senna Lax 8.6 MG TABLET) 17.2 MG BED TIME PO Fentanyl Citrate (SUBLIMAZE) 50 MCG Q3H PRN PRN IV Tramadol HCl (ULTRAM) 50 MG Q4H PRN PRN PO Tramadol HCl (ULTRAM) 25 MG QID PRN PO Ipratropium [place] (ATROVENT) 500 MCG RTQ4H INH Acetaminophen (TYLENOL) 650 MG Q4H PRN PRN PO Acetaminophen (TYLENOL) 650 MG Q4H PRN PRN RECTA L Albumin Human (ALBUMINAR 25%) 25 GM ASDIR PRN IV (DC) Calcium Chloride (CALCIUM CHLORIDE) 1 GM ASDIR P RN IV Dextrose/Water (DEXTROSE 10% IN WATER) 125 ML DIR PRN IV (CKD) Dextrose/Water (DEXTROSE 10% IN WATER) 250 ML DIR PRN IV (CKD) Epinephrine (ADRENALIN CHLORIDE) 4 MG ASDIR IV Dextrose/Water (DEXTROSE 5% WATER) 246 ML Glucagon (GLUCAGON) 1 MG ASDIR PRN IM Insulin Human Regular (HumuLIN R) 100 UNIT ASDIR IV (CKD) Sodium Chloride (SODIUM CHLORIDE 0.9%) 99 ML Magnesium Sulfate (MAGNESIUM SULFATE 4GM/SWFI 10 0ML) 100 ML ASDIR PRN IV Magnesium Sulfate (MAGNESIUM SULFATE 2GM/SWFI 50 ML) 50 ML ASDIR PRN IV Magnesium Sulfate/Dextrose (MAGNESIUM SULFATE 1G M/D5W 100ML) 100 ML ASDIR PRN IV Nitroglycerin/Dextrose (NITROGLYCERIN 50,000MCG/ D5W 250ML) 250 ML ASDIR IV Norepinephrine Bitartrate (NOREPINEPHRINE 8 MG/N S 250 ML) 250 ML TITRATE IV Ondansetron HCl (ZOFRAN) 4 MG Q6H PRN PRN IV Potassium Chloride (KCL 20MEQ/SWFI 100ML) 100 ML ASDIR PRN IV Sodium Bicarbonate (SODIUM BICARBONATE) 50 MEQ A SDIR PRN IV Sodium Chloride (SODIUM CHLORIDE 0.9%) 1,000 ML .Q20H IV Sodium Chloride (SODIUM CHLORIDE 0.9%) 250 ML Q2 4H IV Physical Exam General appearance: chronically ill appearing, f rail, alert, awake Head/Eyes: CHISHOLM HAIR AND ADAMES WEARING EYEGLASSE S Neck: no JVD Cardiovascular: normal heart sounds, regular rat e rhythm Respiratory: aerating well, clear to auscultatio n Abdomen: non-tender, normal bowel sounds, soft Extremities: no edema Musculoskeletal: normal inspection Neuro/RN ELIGIBILITY: no motor deficits Skin: normal color Psychiatry: normal affect, normal judgment/insig ht Results Findings/Data: Laboratory Tests 09/28 09/28 09/28 09/28 09/27 1138 0737 0210 0210 2303 Chemistry Sodium (134 - 147 mEq/L) 136 Potassium (3.4 - 5.0 mEq/L) 4.3 Chloride (100 - 108 mEq/L) 108 Carbon Dioxide (21 - 33 mEq/l) 24 Anion Gap (0 - 20) 8 BUN (7 - 18 mg/dL) 15 Creatinine (0.6 - 1.3 mg/dL) 1.1 Glomerular Filtr Rate (70 - 80) 67.9 L Glucose (70 - 110 mg/dL) 149 H POC Glucose (70 - 110 MG/DL) 218 H 162 H 165 H Calcium (8.0 - 10.5 mg/dL) 9.2 Ionized Calcium Tim (1.09 - 1.30 MMOL/L) 1.17 Magnesium (1.80 - 2.40 mg/dL) 2.14 Total Bilirubin (0.0 - 1.0 mg/dL) 0.70 Direct Bilirubin (0.0 - 0.30 MG/DL) 0.40 H Indirect Bilirubin (MG/DL) 0.30 AST (15 - 37 IUnit/L) 26 ALT (30 - 65 IUnit/L) 18 L Total Alk Phosphatase (20 - 125 IUnit/L) 33 Total Protein (6.4 - 8.2 g/dL) 5.4 L Albumin (3.4 - 5.0 g/dL) 3.70 09/275 1652 1437 1226 Chemistry POC Glucose (70 - 110 MG/DL) 194 H 131 H 149 H 162 H Laboratory Tests 09/28 09/28 09/28 0720 0720 0210 Hematology WBC (4.5 - 11.0 x10 3/uL) 9.2 7.3 RBC (4.00 - 5.60 x10 6/uL) 2.56 L 2.45 L Hgb (12.5 - 16.9 g/dL) TNP 8.2 L 7.8 L Hct (37.5 - 50.7 %) TNP 23.8 L 22.9 L MCV (81.0 - 99.0 fL) 93.0 93.5 MCH (27.0 - 33.0 pg) 32.0 31.8 MCHC (33.0 - 37.0 g/dL) 34.5 34.1 RDW (11.5 - 14.5 %) 14.5 14.4 Plt Count (150 - 400 x10 3/uL) 96 L 82 L MPV (7.0 - 9.0 fL) 11.8 H 11.6 H Neut % (Auto) (56.0 - 77.0 %) 84.2 H 84.2 H Lymph % (Auto) (14.0 - 32.0 %) 6.9 L 8.1 L Isabella % (Auto) (4.8 - 9.0 %) 8.3 7.2 Eos % (Auto) (0.3 - 3.7 %) 0.0 L 0.0 L Baso % (Auto) (0.0 - 2.0 %) 0.1 0.1 Neut # (Auto) (2.0 - 7.6 x10 3/uL) 7.77 H 6.10 Lymph # (Auto) (1.0 - 3.8 x10 3/uL) 0.64 L 0.5 9 L Isabella # (Auto) (0.1 - 0.8 x10 3/uL) 0.77 0.52 Eos # (Auto) (0.0 - 0.2 x10 3/uL) 0.00 0.00 Baso # (Auto) (0.0 - 0.2 x10 3/uL) 0.01 0.01 Abs Immat Gran (auto) (0.00 - 0.03 x10 3/uL) 0. 05 H 0.03 Add Manual Diff NO NO Immature Gran % (0.0 - 2.0 %) 0.5 0.4 Nucleated RBC % (0 - 0 %) 0.0 0.0 Nucleated RBCs # (Man) (0.0 - 0.1 x10 3/uL) 0.0 0 0.00 Platelet Estimate (ADEQUATE THOUSAND) 88-110 Immature Plt Fraction (0.9 - 11.2 %) 8.1 6.5 Plt Morphology Comment LARGE PLATELETS Radiology data: Recent Impressions: RADIOLOGY - XR CHEST 1 V 09/28 0632 Report Impression - Status: SIGNED Entered: 09/28/2022 9363 IMPRESSION: 1. No significant interval change. Hypoventilato ry changes in the lung bases. 2. Satisfactory line and tube placement unchange d. Impression By: [email or web address] Gus Aviles Free Text Obj Notes Free Text Obj Notes: General appearance: alert, awake, oriented Head/Eyes: atraumatic, normocephalic ENT: moist mucosal membranes, normal pharynx Neck: non-tender, supple/no meningismus, no JVD Cardiovascular: normal capillary refill, normal heart sounds, regular rate rhythm Respiratory: aerating well, clear to auscultatio n, symmetric expansion Abdomen: non-tender, normal bowel sounds, soft, no distention Extremities: no clubbing, no cyanosis, no edema Neuro/RN ELIGIBILITY: alert, oriented X 3, CNII-XII intact Skin: dry, intact Psychiatry: normal affect, normal judgment/insig ht Diagnosis, Assessment Plan Consultants: cardiovascular surgery Free Text DxA P Notes Free text DxA P notes: NSTEMI, 3-V CAD, SEVERE , S/P CABGX2, S/P AVR, S/P ELYDI ISOLATION - CARD/CTS SEEN, PLAN PER CTS, ON CT/KING, REPEAT ECHO EF 40-45% Continue aspirin 81 mg daily Atorvastatin 80 mg at bedtime ANEMIA OF SURGICAL BLOOD LOSS - HGB FROM 14 TO 7 .2, TX PRN Pulmonary edema due to aortic stenosis - COMPENS ATED, ECHO EF 45-50%, DD Chest x-ray with bibasilar opacities BNP elevated at 3114 Hypertension - STABLE Resume home lisinopril 10 mg p.o. daily Hydralazine 10 mg IV every 6 hours as n eeded. Blood pressure greater than 170 Type 2 diabetes mellitus - GOOD, CONT ISS, HGBA1 C 6.8%, LDL 40 Hold home metformin, empagliflozin, and semaglu tide Low-dose sliding scale insulin before meals and at bedtime Hyperlipidemia LDL 40, CONT Atorvastatin 80 mg a t bedtime DVT prophylaxis: Heparin drip, cardiology protoc ol Diet: Carbohydrate consistent CODE STATUS: DO NOT RESUSCITATE Patient reports he has an advanced directive His medical power of banking attorney is son Guille de la vega Electronically Signed by Chiki Fernandez MD on 09/28 at 1203 RPT #:[id number] END OF REPORT 2022-09-28 10:31:00-00:00 [id number] [place] [address] PATIENT NAME: MONICA BECK ADMIT DATE: 0 09/24/22 ACCOUNT NO: [id number] ROOM NO: [facility] AGE: 82 REPORT TYPE: eELECTROCARDIOGRAM REPORT SEX: M ADMITTING PHYSICIAN:Kathya Maria MD ATTENDING PHYSICIAN:Kathya Maria MD Order: [id number] Test Reason : , Test Date/Time Stamp: MonSep 28 2022 10:31:46 Blood Pressure : / mmHG Vent. Rate : 071 BPM Atrial Rate : 071 BPM P-R Int : 266 ms QRS Dur : 130 ms QT Int : 438 ms P-R-T Axes : 022 -52 130 degree s QTc Int : 475 ms Sinus rhythm with 1st degree AV block Left axis deviation Left ventricular hypertrophy with QRS widening ( R in aVL , Gerardo product ) T wave abnormality, consider lateral ischemia Abnormal ECG When compared with ECG of 28-SEP-2022 02:35, Significant changes have occurred Confirmed by MD RAMSEY GERARD ([id number]) on 09/29/19 6:01:49 PM Referred By: Neeru Maria Confirmed by:ANA RAMSEY MD Electronically Signed by Ana Ramsey MD on 0 09/28/22 at 1801 PATIENT NAME: MONICA BECK ACCOUNT #: [id number] 2022-09-28 09:29:00-00:00 [facility] ([facility]) Cardiology Progress Note REPORT#:[id number] REPORT STATUS: Signed DATE:09/28/22 TIME: 928 PATIENT: MONICA BECK UNIT #: [id number] ROOM/BED: [place] [address] : 42 AGE: 82 SEX: M ATTEND: Nicolasa Maria MD ADM AUTHOR: Jakob Pa MD * ALL edits or amendments must be made on the [employer] document * Subjective Free Text Subj Notes Free Text Subj Notes: doing ok Objective General VS/I O: 24 hour I O ending at 0700: 09/28 0700 09/27 1900 Intake Total 1374.00 870.00 Output Total 825 720 Balance 549.00 150.00 Intake, IV 874.00 520.00 Intake, Oral 500 350 Output, Chest 400 345 Tube Drainage Output, Urine 425 375 Patient 80.4 kg 78.471 kg Weight Weight Standing scale Measurement Method Vital Signs: Date Time Temp Pulse Resp B/P B/P Pulse O2 O2 Flow FiO2 Mean Ox Delivery Rate 09/28 0700 Nasal 2 cannula 09/28 0700 108/58 78 09/28 0700 83 24 99 09/28 0600 91 50 101/54 68 05/ 0500 103/63 79 / 0500 87 20 107/48 65 94 05/10 0400 117/61 82 05/ 0400 89 20 113/49 67 98 05/10 0339 99 Nasal 2 cannula 09/28 0300 121/57 82 05/ 0300 87 19 104/45 61 95 05/10 0200 102/61 76 05/10 0200 87 18 104/46 62 98 05/10 0103 110/52 75 05/ 0100 85 16 103/46 62 100 05/10 0000 109/57 79 05/10 0000 90 19 109/47 65 97 05/ 2300 94/52 66 09/27 2300 97 22 100/44 60 96 09/27 2200 123/58 83 05/09 2200 99 24 107/50 66 95 05/09 2100 120/68 89 05/09 2100 81 22 130/55 77 95 05/09 1999 97.9 05/09 2000 114/61 80 05/09 2000 83 19 124/52 73 95 05/09 1925 94 Nasal 2 cannula 05/09 1920 High flow 3 nasal cannula 05/09 1900 86 31 121/53 75 91 05/09 1800 84 29 125/49 72 95 05/09 1745 110/56 80 05/09 1745 84 25 110/42 63 95 05/09 1730 110/56 80 05/09 1730 85 33 96/43 63 92 05/09 1715 119/53 82 05/09 1715 82 30 120/44 67 84 05/09 1700 127/55 79 05/09 1700 83 24 121/44 67 92 05/09 1645 110/55 78 05/09 1645 79 21 116/40 62 95 05/09 1630 115/56 81 05/09 1630 78 24 108/40 60 93 05/09 1605 109/54 78 05/09 1605 85 30 96/38 56 92 05/09 1600 120/58 83 05/09 1600 82 29 105/39 59 93 05/09 1546 110/57 74 05/09 1546 87 32 109/51 70 89 05/09 1530 120/58 84 05/09 1530 79 25 112/42 64 95 05/09 1515 112/58 82 05/09 1515 82 24 117/45 68 94 05/09 1506 82 27 94/43 62 94 05/09 1500 122/57 85 05/09 1500 82 29 109/43 64 94 05/09 1445 124/58 84 05/09 1445 85 28 127/45 71 94 05/09 1430 140/65 92 05/09 1430 102 24 155/64 95 97 05/09 1415 147/65 93 05/09 1415 83 24 148/56 85 95 05/09 1400 139/65 93 05/09 1400 80 22 149/56 86 95 05/09 1353 81 22 147/55 84 95 05/09 1345 148/65 94 05/09 1345 100 20 149/61 90 95 05/09 1330 139/63 90 05/09 1330 80 22 150/57 87 95 05/09 1316 149/64 92 05/09 1316 81 22 149/57 86 94 05/09 1300 150/83 111 05/09 1300 103 16 164/68 99 05/09 1253 160/73 105 05/09 1253 106 23 173/71 104 05/09 1231 162/72 104 05/09 1231 86 45 157/57 87 89 05/09 1214 139/67 89 05/09 1214 86 26 146/59 86 83 05/09 1200 123/68 88 05/09 1200 79 27 110/48 69 100 05/09 1145 120/61 85 05/09 1145 75 23 128/49 75 100 05/09 1131 129/70 91 05/09 1131 97 28 117/37 57 88 05/09 1115 97/51 73 05/09 1115 76 23 105/40 59 92 05/09 1102 74 24 114/46 67 94 05/09 1100 111/55 76 05/09 1100 73 23 110/44 64 94 05/09 1045 111/57 81 05/09 1045 72 22 108/42 63 95 05/09 1039 76 25 106/43 63 94 05/09 1030 113/58 82 05/09 1030 75 21 111/45 66 95 05/09 1016 117/53 76 05/09 1016 74 21 113/45 66 93 05/09 1000 71 20 115/46 68 95 05/09 0945 118/67 87 05/09 0945 76 26 117/46 70 94 05/09 0940 130/75 95 05/09 0940 74 33 122/49 72 93 05/09 0938 73 05/09 0938 121/60 84 05/09 0938 19 95 PATIENT WEIGHT: Weight (lb): 177 Weight (oz): 4.03 Weight (kg): 80.400 Medications: Active Meds + DC'd Last 24 Hrs Ipratropium [place] (ATROVENT) 500 MCG RTQ2H PRN PRN INH Cyanocobalamin (Vitamin B-12 500 mcg tab) 500 MC G DAILY PO Ferrous Sulfate (FERROUS SULFATE) 325 MG DAILY PO Bisacodyl (DULCOLAX) 10 MG ONCE PRN RECTAL Magnesium Hydroxide (MILK OF MAGNESIA) 30 ML ONC E PRN PO Mupirocin (BACTROBAN 2% 22 GM OINTMENT) 1 APPLIC BID NASAL Amiodarone HCl (NEXTERONE 150MG/D5W 100ML) 100 M L STAT STA IV (DC) Furosemide (LASIX 20MG INJ) 20 MG ONCE ONE IV (D C) Albumin Human (ALBUMINAR 5% 12.5GM/250ML) 250 ML Q30M IV (DC) Atorvastatin Calcium (LIPITOR) 40 MG 2100 PO Lactated Ringer's (LACTATED RINGERS) 500 ML BOLU S ONCE ONE IV (DC) Dopamine HCl/Dextrose (DOPamine 400MG/D5W 250ML) 250 ML ASDIR IV Clopidogrel Bisulfate (Plavix) 75 MG DAILY PO Polyethylene Glycol (MIRALAX) 17 GM DAILY PO Pantoprazole (PROTONIX) 40 MG DAILY@0600 PO Aspirin (ASPIRIN) 81 MG DAILY PO Amiodarone HCl (CORDARONE) 200 MG TID PO Docusate Sodium (COLACE) 100 MG BID PO Gabapentin (NEURONTIN) 200 MG BID PO Melatonin (Melatonin) 6 MG BEDTIME PO Metoprolol Tartrate (LOPRESSOR) 12.5 MG Q12HR PO Sennosides (Senna Lax 8.6 MG TABLET) 17.2 MG BED TIME PO Fentanyl Citrate (SUBLIMAZE) 50 MCG Q3H PRN PRN IV Tramadol HCl (ULTRAM) 50 MG Q4H PRN PRN PO Tramadol HCl (ULTRAM) 25 MG QID PRN PO Ipratropium [place] (ATROVENT) 500 MCG RTQ4H INH Acetaminophen (TYLENOL) 650 MG Q4H PRN PRN PO Acetaminophen (TYLENOL) 650 MG Q4H PRN PRN RECTA L Albumin Human (ALBUMINAR 25%) 25 GM ASDIR PRN IV (DC) Calcium Chloride (CALCIUM CHLORIDE) 1 GM ASDIR P RN IV Cefazolin Sodium (KEFZOL OR ANCEF) 3 GM ONCE ONE IV (DC) Sodium Chloride (SODIUM CHLORIDE 0.9%) 250 ML Dextrose/Water (DEXTROSE 10% IN WATER) 125 ML DIR PRN IV (CKD) Dextrose/Water (DEXTROSE 10% IN WATER) 250 ML DIR PRN IV (CKD) Epinephrine (ADRENALIN CHLORIDE) 4 MG ASDIR IV Dextrose/Water (DEXTROSE 5% WATER) 246 ML Glucagon (GLUCAGON) 1 MG ASDIR PRN IM Insulin Human Regular (HumuLIN R) 100 UNIT ASDIR IV (CKD) Sodium Chloride (SODIUM CHLORIDE 0.9%) 99 ML Magnesium Sulfate (MAGNESIUM SULFATE 4GM/SWFI 10 0ML) 100 ML ASDIR PRN IV Magnesium Sulfate (MAGNESIUM SULFATE 2GM/SWFI 50 ML) 50 ML ASDIR PRN IV Magnesium Sulfate/Dextrose (MAGNESIUM SULFATE 1G M/D5W 100ML) 100 ML ASDIR PRN IV Nitroglycerin/Dextrose (NITROGLYCERIN 50,000MCG/ D5W 250ML) 250 ML ASDIR IV Norepinephrine Bitartrate (NOREPINEPHRINE 8 MG/N S 250 ML) 250 ML TITRATE IV Ondansetron HCl (ZOFRAN) 4 MG Q6H PRN PRN IV Potassium Chloride (KCL 20MEQ/SWFI 100ML) 100 ML ASDIR PRN IV Sodium Bicarbonate (SODIUM BICARBONATE) 50 MEQ A SDIR PRN IV Sodium Chloride (SODIUM CHLORIDE 0.9%) 1,000 ML .Q20H IV Sodium Chloride (SODIUM CHLORIDE 0.9%) 250 ML Q2 4H IV Physical Exam General appearance: alert, awake, oriented Neck: non-tender Cardiovascular: CV assessment: regular rate and rhythm Respiratory: decreased breath sounds, on oxygen, no distress Abdomen: soft, non-tender, normal bowel sounds, no distention Genitourinary: urinary catheter, urine Lower extremity: LE assessment: no edema Musculoskeletal: normal inspection Neuro/RN ELIGIBILITY: alert, oriented X 3, normal speech Skin: dry Psychiatry: normal affect, normal mood Results Findings/Data: Laboratory Tests 09/28 09/28 09/28 09/27 09/27 0737 0210 0210 2303 2024 Chemistry Sodium (134 - 147 mEq/L) 136 Potassium (3.4 - 5.0 mEq/L) 4.3 Chloride (100 - 108 mEq/L) 108 Carbon Dioxide (21 - 33 mEq/l) 24 Anion Gap (0 - 20) 8 BUN (7 - 18 mg/dL) 15 Creatinine (0.6 - 1.3 mg/dL) 1.1 Glomerular Filtr Rate (70 - 80) 67.9 L Glucose (70 - 110 mg/dL) 149 H POC Glucose (70 - 110 MG/DL) 162 H 165 H 194 H Calcium (8.0 - 10.5 mg/dL) 9.2 Ionized Calcium Tim (1.09 - 1.30 MMOL/L) 1.17 Magnesium (1.80 - 2.40 mg/dL) 2.14 Total Bilirubin (0.0 - 1.0 mg/dL) 0.70 Direct Bilirubin (0.0 - 0.30 MG/DL) 0.40 H Indirect Bilirubin (MG/DL) 0.30 AST (15 - 37 IUnit/L) 26 ALT (30 - 65 IUnit/L) 18 L Total Alk Phosphatase (20 - 125 IUnit/L) 33 Total Protein (6.4 - 8.2 g/dL) 5.4 L Albumin (3.4 - 5.0 g/dL) 3.70 09/27 09/27 09/27 09/27 1652 1437 1226 1131 Chemistry POC Glucose (70 - 110 MG/DL) 131 H 149 H 162 H 213 H Laboratory Tests 09/28 09/28 09/28 0720 0720 0210 Hematology WBC (4.5 - 11.0 x10 3/uL) 9.2 7.3 RBC (4.00 - 5.60 x10 6/uL) 2.56 L 2.45 L Hgb (12.5 - 16.9 g/dL) TNP 8.2 L 7.8 L Hct (37.5 - 50.7 %) TNP 23.8 L 22.9 L MCV (81.0 - 99.0 fL) 93.0 93.5 MCH (27.0 - 33.0 pg) 32.0 31.8 MCHC (33.0 - 37.0 g/dL) 34.5 34.1 RDW (11.5 - 14.5 %) 14.5 14.4 Plt Count (150 - 400 x10 3/uL) 96 L 82 L MPV (7.0 - 9.0 fL) 11.8 H 11.6 H Neut % (Auto) (56.0 - 77.0 %) 84.2 H 84.2 H Lymph % (Auto) (14.0 - 32.0 %) 6.9 L 8.1 L Isabella % (Auto) (4.8 - 9.0 %) 8.3 7.2 Eos % (Auto) (0.3 - 3.7 %) 0.0 L 0.0 L Baso % (Auto) (0.0 - 2.0 %) 0.1 0.1 Neut # (Auto) (2.0 - 7.6 x10 3/uL) 7.77 H 6.10 Lymph # (Auto) (1.0 - 3.8 x10 3/uL) 0.64 L 0.59 L Isabella # (Auto) (0.1 - 0.8 x10 3/uL) 0.77 0.52 Eos # (Auto) (0.0 - 0.2 x10 3/uL) 0.00 0.00 Baso # (Auto) (0.0 - 0.2 x10 3/uL) 0.01 0.01 Abs Immat Gran (auto) (0.00 - 0.03 x10 3/uL) 0. 05 H 0.03 Add Manual Diff NO NO Immature Gran % (0.0 - 2.0 %) 0.5 0.4 Nucleated RBC % (0 - 0 %) 0.0 0.0 Nucleated RBCs # (Man) (0.0 - 0.1 x10 3/uL) 0.0 0 0.00 Platelet Estimate (ADEQUATE THOUSAND) 88-110 Immature Plt Fraction (0.9 - 11.2 %) 8.1 6.5 Plt Morphology Comment LARGE PLATELETS Laboratory Tests 09/28 0210 Chemistry Magnesium (1.80 - 2.40 mg/dL) 2.14 Radiology data: Recent Impressions: RADIOLOGY - XR CHEST 1 V 09/28 0632 Report Impression - Status: SIGNED Entered: 09/28/2022 0469 IMPRESSION: 1. No significant interval change. Hypoventilato ry changes in the lung bases. 2. Satisfactory line and tube placement unchange d. Impression By: [email or web address] - Gus Genao Diagnosis, Assessment Plan Problem List/A P: 1. S/P CABG x 2 2. S/P AVR 3. CAD (coronary artery disease) 4. Severe aortic stenosis Free Text DxA P Notes Free Text DxA P Notes: 82 YO male with MHx of DM, HLD, . He presented to [facility] with CP, found to have NSTEMI. LHC ensued that showed sev ere multivessel CAD. He is transferred to us and underwent CABG and AVR on 09/26/22. 1. Multivessel CAD S/p CABG x2 (NAIR to LAD and SVG to OM), ALAA, a nd SAVR on DAPT, BB, statin extubated, awake and alert with acceptable hemod ynamics post-op care per CTS 2. s/p SAVR continue DAPT 3. Hypertension BP Stable continue BB 4. Diabetes mellitus glucose control per critical care Electronically Signed by Jakob Pa MD on at 0851 [facility] #:[id number] END OF REPORT 2022-09-28 09:07:00-00:00 [id number] [place] [address] PATIENT NAME: MONICA BECK ADMIT DATE: 0 09/24/22 ACCOUNT NO: [id number] ROOM NO: [facility] AGE: 82 REPORT TYPE: eECHOCARDIOGRAM REPORT SEX: M ADMITTING PHYSICIAN:Kathya Maria MD ATTENDING PHYSICIAN:Kathya Maria MD *[place] [address] Limited Transthoracic Echocardiogram Patient: Monica Beck Study Date: 09/28/2022 BP: Location: [facility] URN: [id number] 2526 : 1940 Age: 82 Height: 64 in / 162.6 cm Gender: M Weight: 173 lb / 78.6 kg BMI/BSA: 29.8 kg/m 2 / 1.91 m 2 *Ordering Physician: Milton Ronquillo *Interpreting Physician: * Jakob Pa MD *Cloth Calender: Anali Head [facility] Indications: S/PCABG/AVR, HYPOTENSION. Study data: Transthoracic echocardiogram, limite d study. Limited 2D and limited spectral Doppler. Location: Bedside. Patient room number: 2204. Findings Left ventricle: Systolic function is mildly redu nori. The estimated ejection fraction is 40-44%. Aortic valve: There is a bioprosthetic valve. Th ere is trivial regurgitation. Tricuspid valve: There is mild regurgitation. Pericardium: There is no pericardial effusion. PATIENT NAME: MONICA BECK ACCOUNT #: [id number] Measurements Left ventricle Value 09/25/2022 Ref ANNE, LAX 4.7 cm 5.9 4.2 - 5.8 ESD, LAX 4.0 cm 4.4 2.5 - 4.0 ESD/bsa, LAX 2.1 cm/m 2 2.4 1.3 - 2.1 FS, LAX 16 % 22 25 - 43 PW, ED 1.4 cm 1.1 0.6 - 1.0 IVS/PW, ED 1 0.91 ------ EF 34 % 41 52 - 72 Ventricular septum Value 09/25/2022 Ref IVS, ED 1.4 cm 1.0 0.6 - 1.0 Left atrium Value 09/25/2022 Ref AP dim, ES 4.02 cm 4.29 3.00 - 4.00 Tricuspid valve Value 09/25/2022 Ref TR peak v 2.54 m/sec <=2.8 Peak RV-RA 26 mm Hg ------ grad, S Conclusions Summary: 1. Left ventricle: Systolic function is mildly r educed. The estimated ejection fraction is 40-44%. 2. Aortic valve: There is a bioprosthetic valve. Prepared and electronically signed by Jakob Pa MD 09/28/2022 09:07 Electronically Signed by Jakob Pa MD on 0 09/28/22 at 0907 PATIENT NAME: MONICA BECK ACCOUNT #: [id number] 2022-09-28 08:39:00-00:00 [facility] Critical Care Progress Note REPORT#:[id number] REPORT STATUS: Signed DATE:09/28/22 TIME: 0839 PATIENT: MONICA BECK UNIT #: [id number] ROOM/BED: [place] [address] : 42 AGE: 82 SEX: M ATTEND: Nicolasa Maria MD ADM AUTHOR: Milton Mast MD * ALL edits or amendments must be made on the [employer]/computer document * Subjective Chief complaint: CABG HPI: 82-year-old male with history of HTN, HL, NIDDM, aortic stenosis and restless leg syndrome, who presented to outside hospital with chest pain and found to have non-STEMI. Cardiac catheter revealed severe multivessel coronary artery disease. Patient underwent A VR (25 INSPIRIS), CABG X2 (NAIR-LAD, SVG-OM), ALAA, EVH (RGSV) and posterior per icardiotomy today at 09/26/2022. EF was 30-35% and it slightly improved postop 40% on ANKUR. Crystalloid 1.8 L, albumin 150, urine output 600, Cell Saver 250. Surgery went well so patient was extubated and transferred to CVICU postop in a stable surgical condition. He was weaned off all vasopressors coming off pump and is currently on nitroglycerin and insulin drip. Comments: Out of bed in the chair, orthostatic Urine output 425 cc, Lp CT 350 cc, mCT 50 cc Was briefly on dopamine drip and went into A-fib Off Levophed drip, on insulin drip Objective General VS/I O Last Documented: Result Date Time O2 Delivery Nasal cannula 09/28 699 O2 Flow Rate 2 09/28 699 B/P 108/58 09/28 699 B/P Mean 78 09/28 699 Pulse Ox 99 09/28 699 Pulse 83 09/28 699 Resp 24 09/28 699 Temp 97.9 09/28 1999 24 hour I O ending at 0700: 09/28 0600 09/27 1900 Intake Total 1374.00 870.00 Output Total 825 720 Balance 549.00 150.00 Intake, IV 874.00 520.00 Intake, Oral 500 350 Output, Chest 400 345 Tube Drainage Output, Urine 425 375 Patient 80.4 kg 78.471 kg Weight Weight Standing scale Measurement Method PATIENT WEIGHT: Weight (lb): 177 Weight (oz): 4.03 Weight (kg): 80.400 Medications: Active Meds + DC'd Last 24 Hrs Ipratropium [place] (ATROVENT) 500 MCG RTQ2H PRN PRN INH Cyanocobalamin (Vitamin B-12 500 mcg tab) 500 MC G DAILY PO Ferrous Sulfate (FERROUS SULFATE) 325 MG DAILY P O Bisacodyl (DULCOLAX) 10 MG ONCE PRN RECTAL Magnesium Hydroxide (MILK OF MAGNESIA) 30 ML ONC E PRN PO Mupirocin (BACTROBAN 2% 22 GM OINTMENT) 1 APPLIC BID NASAL Amiodarone HCl (NEXTERONE 150MG/D5W 100ML) 100 M L STAT STA IV (DC) Furosemide (LASIX 20MG INJ) 20 MG ONCE ONE IV ( DC) Albumin Human (ALBUMINAR 5% 12.5GM/250ML) 250 ML Q30M IV (DC) Atorvastatin Calcium (LIPITOR) 40 MG 2100 PO Lactated Ringer's (LACTATED RINGERS) 500 ML BOLU S ONCE ONE IV (DC) Dopamine HCl/Dextrose (DOPamine 400MG/D5W 250ML) 250 ML ASDIR IV Clopidogrel Bisulfate (Plavix) 75 MG DAILY PO Polyethylene Glycol (MIRALAX) 17 GM DAILY PO Albumin Human (ALBUMINAR 5% 12.5GM/250ML) 250 ML ONCE IV (DC) Pantoprazole (PROTONIX) 40 MG DAILY@0600 PO Aspirin (ASPIRIN) 81 MG DAILY PO Amiodarone HCl (CORDARONE) 200 MG TID PO Docusate Sodium (COLACE) 100 MG BID PO Gabapentin (NEURONTIN) 200 MG BID PO Melatonin (Melatonin) 6 MG BEDTIME PO Metoprolol Tartrate (LOPRESSOR) 12.5 MG Q12HR PO Sennosides (Senna Lax 8.6 MG TABLET) 17.2 MG BED TIME PO Fentanyl Citrate (SUBLIMAZE) 50 MCG Q3H PRN PRN IV Tramadol HCl (ULTRAM) 50 MG Q4H PRN PRN PO Tramadol HCl (ULTRAM) 25 MG QID PRN PO Ipratropium [place] (ATROVENT) 500 MCG RTQ4H INH Acetaminophen (TYLENOL) 650 MG Q4H PRN PRN PO Acetaminophen (TYLENOL) 650 MG Q4H PRN PRN RECTA L Albumin Human (ALBUMINAR 25%) 25 GM ASDIR PRN IV (DC) Calcium Chloride (CALCIUM CHLORIDE) 1 GM ASDIR P RN IV Cefazolin Sodium (KEFZOL OR ANCEF) 3 GM ONCE ONE IV (DC) Sodium Chloride (SODIUM CHLORIDE 0.9%) 250 ML Dextrose/Water (DEXTROSE 10% IN WATER) 125 ML DIR PRN IV (CKD) Dextrose/Water (DEXTROSE 10% IN WATER) 250 ML DIR PRN IV (CKD) Epinephrine (ADRENALIN CHLORIDE) 4 MG ASDIR IV Dextrose/Water (DEXTROSE 5% WATER) 246 ML Glucagon (GLUCAGON) 1 MG ASDIR PRN IM Insulin Human Regular (HumuLIN R) 100 UNIT ASDIR IV (CKD) Sodium Chloride (SODIUM CHLORIDE 0.9%) 99 ML Magnesium Sulfate (MAGNESIUM SULFATE 4GM/SWFI 10 0ML) 100 ML ASDIR PRN IV Magnesium Sulfate (MAGNESIUM SULFATE 2GM/SWFI 50 ML) 50 ML ASDIR PRN IV Magnesium Sulfate/Dextrose (MAGNESIUM SULFATE 1G M/D5W 100ML) 100 ML ASDIR PRN IV Nitroglycerin/Dextrose (NITROGLYCERIN 50,000MCG/ D5W 250ML) 250 ML ASDIR IV Norepinephrine Bitartrate (NOREPINEPHRINE 8 MG/N S 250 ML) 250 ML TITRATE IV Ondansetron HCl (ZOFRAN) 4 MG Q6H PRN PRN IV Potassium Chloride (KCL 20MEQ/SWFI 100ML) 100 ML ASDIR PRN IV Sodium Bicarbonate (SODIUM BICARBONATE) 50 MEQ A SDIR PRN IV Sodium Chloride (SODIUM CHLORIDE 0.9%) 1,000 ML .Q20H IV Sodium Chloride (SODIUM CHLORIDE 0.9%) 250 ML Q2 4H IV Results Findings/data: Laboratory Tests 09/28 09/28 09/28 09/27 09/27 0737 0210 0210 2303 5 Chemistry Sodium (134 - 147 mEq/L) 136 Potassium (3.4 - 5.0 mEq/L) 4.3 Chloride (100 - 108 mEq/L) 108 Carbon Dioxide (21 - 33 mEq/l) 24 Anion Gap (0 - 20) 8 BUN (7 - 18 mg/dL) 15 Creatinine (0.6 - 1.3 mg/dL) 1.1 Glomerular Filtr Rate (70 - 80) 67.9 L Glucose (70 - 110 mg/dL) 149 H POC Glucose (70 - 110 MG/DL) 162 H 165 H 194 H Calcium (8.0 - 10.5 mg/dL) 9.2 Ionized Calcium Tim (1.09 - 1.30 MMOL/L) 1.17 Magnesium (1.80 - 2.40 mg/dL) 2.14 Total Bilirubin (0.0 - 1.0 mg/dL) 0.70 Direct Bilirubin (0.0 - 0.30 MG/DL) 0.40 H Indirect Bilirubin (MG/DL) 0.30 AST (15 - 37 IUnit/L) 26 ALT (30 - 65 IUnit/L) 18 L Total Alk Phosphatase (20 - 125 IUnit/L) 33 Total Protein (6.4 - 8.2 g/dL) 5.4 L Albumin (3.4 - 5.0 g/dL) 3.70 09/27 09/27 09/27 09/27 1652 1437 1226 1131 Chemistry POC Glucose (70 - 110 MG/DL) 131 H 149 H 162 H 213 H Laboratory Tests 09/28 09/28 09/28 0720 0720 0210 Hematology WBC (4.5 - 11.0 x10 3/uL) 9.2 7.3 RBC (4.00 - 5.60 x10 6/uL) 2.56 L 2.45 L Hgb (12.5 - 16.9 g/dL) TNP 8.2 L 7.8 L Hct (37.5 - 50.7 %) TNP 23.8 L 22.9 L MCV (81.0 - 99.0 fL) 93.0 93.5 MCH (27.0 - 33.0 pg) 32.0 31.8 MCHC (33.0 - 37.0 g/dL) 34.5 34.1 RDW (11.5 - 14.5 %) 14.5 14.4 Plt Count (150 - 400 x10 3/uL) 96 L 82 L MPV (7.0 - 9.0 fL) 11.8 H 11.6 H Neut % (Auto) (56.0 - 77.0 %) 84.2 H 84.2 H Lymph % (Auto) (14.0 - 32.0 %) 6.9 L 8.1 L Isabella % (Auto) (4.8 - 9.0 %) 8.3 7.2 Eos % (Auto) (0.3 - 3.7 %) 0.0 L 0.0 L Baso % (Auto) (0.0 - 2.0 %) 0.1 0.1 Neut # (Auto) (2.0 - 7.6 x10 3/uL) 7.77 H 6.10 Lymph # (Auto) (1.0 - 3.8 x10 3/uL) 0.64 L 0.59 L Isabella # (Auto) (0.1 - 0.8 x10 3/uL) 0.77 0.52 Eos # (Auto) (0.0 - 0.2 x10 3/uL) 0.00 0.00 Baso # (Auto) (0.0 - 0.2 x10 3/uL) 0.01 0.01 Abs Immat Gran (auto) (0.00 - 0.03 x10 3/uL) 0. 05 H 0.03 Add Manual Diff NO NO Immature Gran % (0.0 - 2.0 %) 0.5 0.4 Nucleated RBC % (0 - 0 %) 0.0 0.0 Nucleated RBCs # (Man) (0.0 - 0.1 x10 3/uL) 0.0 0 0.00 Platelet Estimate (ADEQUATE THOUSAND) 88-110 Immature Plt Fraction (0.9 - 11.2 %) 8.1 6.5 Plt Morphology Comment LARGE PLATELETS Laboratory Tests 09/28/22 0720: Hgb TNP, Hct TNP 09/28/22 0720: [Embedded Image Not Available] 09/28/22 0210: [Embedded Image Not Available] Radiology data Recent Impressions: RADIOLOGY - XR CHEST 1 V 09/28 0632 Report Impression - Status: SIGNED Entered: 09/28/2022 0753 IMPRESSION: 1. No significant interval change. Hypoventilato ry changes in the lung bases. 2. Satisfactory line and tube placement unchange d. Impression By: [email or web address] Gus Aviles Free Text Obj Notes Free Text Obj Notes: General appearance: Elderly pale looking male in no acute distress, interactive HEENT: atraumatic, normocephalic, dry mucosal me mbranes Neck: full range of motion, supple/no meningismu s Cardiovascular: S1-S2 irregular irregular Respiratory: symmetric expansion, no acute respi ratory distress Abdomen: soft, non-tender, no distention, no gua rding Genitourinary: king with clear urine Extremities: pedal pulses palpable, moves all, n o clubbing, no cyanosis, no edema Musculoskeletal: normal inspection, no muscle sp asm Neuro/RN ELIGIBILITY: Alert and oriented x3, CNII-XII gross ly intact, no motor deficits Skin: dry, intact and clean surgery dressing Diagnosis, Assessment Plan Problem list/A P: 1. CAD (coronary artery disease) 2. S/P CABG x 2 3. S/P AVR 4. Severe aortic stenosis Free text A P: 82-year-old male with history of HTN, HL, NIDDM, aortic stenosis and restless leg syndrome, who presented to outside hospital with chest pain and found to have non-STEMI. Cardiac catheter revealed severe multivessel coronary artery disease. Patient underwent A VR (25 INSPIRIS), CABG X2 (NAIR-LAD, SVG-OM), ALAA, EVH (RGSV) and posterior per icardiotomy today at 09/26/2022. EF was 30-35% and it slightly improved postop 40% on ANKUR. Crystalloid 1.8 L, albumin 150, urine output 600, Cell Saver 250. Surgery went well so patient was extubated and transferred to CVICU postop in a stable surgical condition. He was weaned off all vasopressors coming off pump and is currently on nitroglycerin and insulin drip. Neuro: Appears intact, multimodal pain control Respiratory: Sats well, wean O2, encourage I-S, ABG and CXR reviewed Cardiovascular: HD stable of f vasopressors, wean nitroglycerin drip, keep CTs to suction Renal: strict I/Os, monitor Cr and electrolytes, lactic acidosis, judicious resuscitation GI: bedside swallow then oral diet, bowel regime n, monitor LFTs, replete hypokalemia ID: reactive leukocytosis, trend WBC, co ntinue periop antibiotics per protocol Hem: acute postop anemia, co agulopathy and thrombocytopenia, monitor Hgb and CTs output, transfuse blood products as needed Endo: Blood glucose control with insulin gtt per protocol Misc: PT and OT consult, DVT and GI ppx with DAP T and PPI 09/27 Remains neuro intact, continue multimodal pain c ontrol Sats well, continue to wean O2, encourage I-S, A BG and CXR reviewed HD unstable back on vasopressors, attempt to wea n, check CVP, bolus as needed Cr stable, good urine output, lactic acidosis cl eared s/p resuscitation, repleted hypocalcemia Oral diet as tolerated, christopher l regimen, monitor gastric distention on x-ray, mild transaminitis No fevers or leukocytosis, given periop antibiot ics Hgb appears stable, no evidence of active bleed, monitor CTs output Blood glucose control with insulin drip, transit ion to sliding scale insulin Encourage PT/OT and out of bed as tolerated DVT and GI prophylaxis with DAPT and PPI 09/28 Remains neuro intact, continue multimodal pain c ontrol Sats well, continue to wean O2, encourage I-S, C XR reviewed HD stable weaned off vasopressors, low CVP s/p r esuscitation, amiodarone per protocol for A-fib Mild JOSE ARMANDO with uptrending Cr, given IVF and Lasix, monitor UOP and electrolytes, obtain urine lytes Oral diet as tolerated, bowel regimen, resolved transaminitis No fevers or leukocytosis, no ID issues at this time Acute postop anemia and thro mbocytopenia, hgb and plt appear stable, no evidence of active bleed, monitor CTs output, remove per CT surgery Blood glucose control with insulin drip, plan to transition to sliding scale insulin Encourage PT/OT and out of bed as tolerated DVT and GI prophylaxis with DAPT and PPI Consultants: cardiovascular surgery Plan discussed with: patient, family, co nsultants, nurse, interdisc care team, pharmacy/pharmacist Critical care time: Minutes: 37 Electronically Signed by Milton Mast MD on 09/19 08/11 at 1245 RPT #:[id number] END OF REPORT 2022-09-28 07:25:00-00:00 [facility] Cardiothoracic Surgery Prog REPORT#:[id number] REPORT STATUS: Signed DATE:09/28/22 TIME: 724 PATIENT: MONICA BECK UNIT #: [id number] ROOM/BED: [place] [address] : 42 AGE: 82 SEX: M ATTEND: Nicolasa Maria MD ADM AUTHOR: Analilia Erwin Physic * ALL edits or amendments must be made on the [employer]/computer document * General Post-op: day 2 (1) Status post: 09/26/22 ROCEDURES: 1. Aortic valve replacement (25 Inspiris valve) . 2. Coronary artery bypass graft surgery x2 (CASTRO A to LAD, saphenous vein to marginal). 3. Amputation of left atrial appendage. 4. Endoscopic vein harvest (right greater saphe nous vein). 5. Posterior pericardiotomy. Subjective Chief complaint: Pre CABG, AVR eval Review of Systems Constitutional: Denies: chills, fever, malaise. Allergy/Immun: Denies: allergic reaction. Respiratory: Denies: SOB. Cardiovascular: Denies: chest pain, palpitations. : Denies: dysuria, hematuria. Heme: Denies: bleeding. Neuro: Denies: dizziness, headache, vision change. All systems rev neg: except as marked Objective General VS/I O Last Documented: Result Date Time Pulse Ox 99 09/28 338 O2 Delivery Nasal cannula 09/28 338 O2 Flow Rate 2 09/28 338 Temp 97.9 09/28 1999 B/P 125/49 09/27 1799 B/P Mean 72 09/27 1799 Pulse 84 09/27 1799 Resp 29 09/27 1799 24 hour I O ending at 0700: 09/28 0700 09/27 1900 Intake Total 870.00 Output Total 720 Balance 150.00 Intake, IV 520.00 Intake, Oral 350 Output, Chest 345 Tube Drainage Output, Urine 375 Patient 78.471 kg Weight PATIENT WEIGHT: Weight (lb): 173 Weight (oz): 8.06 Weight (kg): 78.471 Physical Exam General appearance: alert, awake Wound/incision: Location: Sternum dry, No oozing HEENT: anicteric, mucosal membranes moist Neck: non-tender, supple/no meningismus Cardiovascular: normal heart sounds, a fib Murmur: Systolic 3/6 Respiratory: aerating well, symmetric expansion, no distress Abdomen: soft, non-tender, no distention Extremities: moves all Neuro/RN ELIGIBILITY: alert, oriented X 3, normal speech, n o motor deficits Psychiatry: normal affect, normal mood Diagnosis, Assessment Plan Hospital course to date: Mr Beck a very pleasant 82-year-old male with past medical history of diabetes, hyperlipidemia, restless leg syndrome aortic valve stenosis who presented to [facility] complaining of substernal chest pain across the anterior chest positive for n ausea and diaphoresis. CT chest showed small to moderate bilateral pleural effusions, ascending aorta measuring 4.2 cm. Cardiac enzymes elevated pat ient deemed non-STEMI. He was taken to the [facility] coronary angiogram revealed severe multivessel coronary artery disease. Patient started on heparin drip and transferred to [facility] for possible CABG and AVR. PLAN Coronary angiogram images will be uploaded in [employer] system Dr Maria explained to the patient his family t he angiogram findings and echocardiogram findings and recommended coronary artery bypass graft and aortic valve replacement. The surgery, risks involved, STS score, benefits, complications and alternatives were expl ained to the patient including risk of stroke, respiratory failure, need for tracheosto my, renal failure requiring dialysis, bleeding, infection. Patient acknowled ged understanding and is willing to proceed Initiate preop work-up for AVR Carotid ultrasound BLE venous doppler for vein mapping and marking UA to rule out UTI We will tentatively schedule patient for AVR on 09/26 Preop assessment ongoing Denies chest pain, no shortness of breath Remains on heparin drip Carotid ultrasound showed less than 50% stenosis bilaterally Noncontrasted CT chest performed at [facility] reviewed with Dr. Maria. Images will be uploaded in our system. Coronary angiogram images uploaded in [employer] o Plan for CABG and AVR tomorr ow morning. The surgery, risks involved, STS score, benefits, complications and alternatives were ex plained to the patient. He acknowledged understanding and is willing to pro ceed. Patient changed code status to FULL CODE as he i s going for surgery N.p.o. after midnight 09/27/22 POD 1 AAOx3 Respiratory: 3 l NC, wwean as tolerated. Encourage IS, Deep Breathing, CXR reviewed Cardiac: remains sinus rhtyhm. Pacing wires on s tandby GI: Continue Bowel regimen, no bm yet UO: 1200 Continue PT/OT Disposition: DVT prophylaxis Labs reveiwed- replace electrolytes as needed Patient seen and examined by Dr. Maria. Plan o f care discussed with multidisciplinary team 09/28/22 POD 2 AAOx3 Respiratory: On 2 L NC, 100%, wean as tolerated. Encourage IS, Deep Breathing, CXR reviewed, chest tube in place continue to d rain 300 cc Cardiac: Atrial fibrillation today. Amio bolus g iven, hypotension when moving to the chair. HGB trending down, Will repeat this Am. GI: Passing gas, continue Bowel regimen : King in place, UO: 425 Continue PT/OT Disposition: Pending course DVT prophylaxis Labs reveiwed- replace electrolytes as needed Patient seen and examined by Dr. Maria. Plan o f care discussed with multidisciplinary team Consultants: cardiovascular surgery at 1626 at 0244 RPT #:[id number] END OF REPORT 2022-09-28 02:35:00-00:00 [id number] [place] [id number] PATIENT NAME: MONICA BECK ADMIT DATE: 0 09/24/22 ACCOUNT NO: [id number] ROOM NO: 220 AGE: 82 REPORT TYPE: eELECTROCARDIOGRAM REPORT SEX: M ADMITTING PHYSICIAN:Kathya Maria MD ATTENDING PHYSICIAN:Kathya Maria MD Order: [id number] Test Reason : s/p cabg + avr Test Date/Time Stamp: MonSep 28 2022 02:35:42 Blood Pressure : / mmHG Vent. Rate : 093 BPM Atrial Rate : 000 BPM P-R Int : 000 ms QRS Dur : 150 ms QT Int : 402 ms P-R-T Axes : 000 -38 151 degree s QTc Int : 499 ms Atrial fibrillation Left axis deviation Left bundle branch block Abnormal ECG When compared with ECG of 27-SEP-2022 11:53, Significant changes have occurred Confirmed by MD RAMSEY GERARD ([id number]) on 09/29/19 6:01:42 PM Referred By: Neeru Maria Confirmed by:ANA SANCHEZ MD Electronically Signed by Ana Ramsey MD on 0 09/28/22 at 1801 PATIENT NAME: MONICA BECK ACCOUNT #: [id number] 2022-09-27 16:07:00-00:00 [facility] Cardiothoracic Surgery Prog REPORT#:[id number] REPORT STATUS: Signed DATE:09/27/22 TIME: 1607 PATIENT: MONICA BECK UNIT #: [id number] ROOM[facility]BED: [facility] : 42 AGE: 82 SEX: M ATTEND: Nicolasa Maria MD ADM AUTHOR: Analilia Erwin Physic * ALL edits or amendments must be made on the [employer]/computer document * General Post-op: day 1 (1) Status post: 09/26/22 ROCEDURES: 1. Aortic valve replacement (25 Inspiris valve). 2. Coronary artery bypass graft surgery x2 (NAIR to LAD, saphenous vein to marginal). 3. Amputation of left atrial appendage. 4. Endoscopic vein harvest (right greater saphen ous vein). 5. Posterior pericardiotomy. Subjective Chief complaint: Pre CABG, AVR eval Review of Systems Constitutional: Denies: chills, fever, malaise. Allergy/Immun: Denies: allergic reaction. Respiratory: Denies: SOB. Cardiovascular: Denies: chest pain, palpitations. : Denies: dysuria, hematuria. Heme: Denies: bleeding. Neuro: Denies: dizziness, headache, vision change. All systems rev neg: except as marked Objective General VS/I O Last Documented: Result Date Time Pulse Ox 94 09/27 1506 B/P 94/43 09/27 1506 B/P Mean 62 09/27 1506 Pulse 82 09/27 1506 Resp 27 09/27 1506 O2 Delivery Nasal cannula 09/27 0812 O2 Flow Rate 2 09/27 0812 Temp 97.7 09/27 0400 24 hour I O ending at 0700: 09/27 0700 09/26 1900 Intake Total 1581.00 2720.00 Output Total 1835 1125 Balance -254.00 1595.00 Intake, IV 1101.00 800.00 Intake, Oral 480 120 Intake, Other 1800 Output, Chest 635 165 Tube Drainage Output, Other 700 Output, Urine 1200 260 Patient 78.7 kg Weight Weight Bed scale Measurement Method PATIENT WEIGHT: Weight (lb): 173 Weight (oz): 8.06 Weight (kg): 78.471 Physical Exam General appearance: alert, awake, oriented Wound/incision: Location: Sternum dry, No oozing HEENT: anicteric, mucosal membranes moist Neck: non-tender, supple/no meningismus Cardiovascular: normal heart sounds Murmur: Systolic 3/6 Respiratory: aerating well, symmetric expansion, no distress Abdomen: soft, non-tender, no distention Extremities: moves all Neuro/RN ELIGIBILITY: alert, oriented X 3, normal speech, n o motor deficits Psychiatry: normal affect, normal mood Diagnosis, Assessment Plan Hospital course to date: Mr Beck a very pleasant 82-year-old male with past medical history of diabetes, hyperlipidemia, restless leg syndrome aortic valve stenosis who presented [facility] complaining of substernal chest pain across the anterior chest positive for n ausea and diaphoresis. CT chest showed small to moderate bilateral pleural effusions, ascending aorta measuring 4.2 cm. Cardiac enzymes elevated pat ient deemed non-STEMI. He was taken to the [facility] coronary angiogram revealed severe multivessel coronary artery disease. Patient started on heparin drip and transferred to [facility] for possible CABG and AVR. PLAN Coronary angiogram images will be uploaded in [employer] system Dr Maria explained to the patient his family t he angiogram findings and echocardiogram findings and recommended coronary artery bypass graft and aortic valve replacement. The surgery, risks involved, STS score, benefits, complications and alternatives were expl ained to the patient including risk of stroke, respiratory failure, need for tracheosto my, renal failure requiring dialysis, bleeding, infection. Patient acknowled ged understanding and is willing to proceed Initiate preop work-up for AVR Carotid ultrasound BLE venous doppler for vein mapping and marking UA to rule out UTI We will tentatively schedule patient for AVR on 09/26 Preop assessment ongoing Denies chest pain, no shortness of breath Remains on heparin drip Carotid ultrasound showed less than 50% stenosis bilaterally Noncontrasted CT chest performed at [facility] reviewed with Dr. Maria. Images will be uploaded in our system. Coronary angiogram images uploaded in [employer] Plan for CABG and AVR tomorr ow morning. The surgery, risks involved, STS score, benefits, complications and alternatives were ex plained to the patient. He acknowledged understanding and is willing to pro ceed. Patient changed code status to FULL CODE as he i s going for surgery N.p.o. after midnight 09/27/22 POD 1 AAOx3 Respiratory: 3 l NC, wwean as tolerated. Encourage IS, Deep Breathing, CXR reviewed Cardiac: remains sinus rhtyhm. Pacing wires on tan GI: Continue Bowel regimen, no bm yet UO: 1200 Continue PT/OT Disposition: DVT prophylaxis Labs reveiwed- replace electrolytes as needed Patient seen and examined by Dr. Maria. Plan o f care discussed with multidisciplinary team Consultants: cardiovascular surgery at 7630 at 4023 RPT #:[id number] END OF REPORT 2022-09-27 13:17:00-00:00 [facility] ([facility]) Cardiology Consultation REPORT#:[id number] REPORT STATUS: Signed DATE:09/27/22 TIME: 1317 PATIENT: MONIAC BECK UNIT #: [id number] ROOM/BED: [place] [address] : 42 AGE: 82 SEX: M ATTEND: Nicolasa Maria MD ADM AUTHOR: Geneva Silverman [employer] * ALL edits or amendments must be made on the [employer]/computer document * Geneva Silverman 09/27/22 1317: History of Present Illness HPI Requesting Clinician: Dr. Maria Reason for consult: CAD Chief complaint: CAD PCP: PCP: Kathya Maria MD HPI: 82 YO male with MHx of DM, HLD, . He presented to [facility] with CP, found to have NSTEMI. LHC ensued that showed sev ere multivessel CAD. He is transferred to us and underwent CABG and AVR on 09/26/22. History - Adult longitudinal Past medical history: Denies: Atrial fibrillation, Congestive heart fa ilure. Additional medical history: 1. Hypertension 2. Hyperlipidemia 3. Type 2 diabetes mellitus 4. Restless leg syndrome 5. Aortic stenosis Additional surgical history: 1. Cholecystectomy 2. Varicose veins Additional family history: Reviewed and noncontributory Alcohol use: Denies EtOH use Drug use: Denies recreational drugs Smoking status for patients 13 years old or olde r: Never Smoker Allergies: Coded Allergies: No Known Allergies (09/24/22) Objective General VS/I O: VVital Signs Date Temp Pulse Resp B/P B/P Mean Pulse Ox FiO2 09/26-09/27 36.1-37.0 68-106 8-45 85-173/31-83 57-111 83-100 24 hour I O ending at 0700: 09/27 0700 05/ 1900 Intake Total 1581.00 2720.00 Output Total 1835 1125 Balance -254.00 1595.00 Intake, IV 1101.00 800.00 Intake, Oral 480 120 Intake, Other 1800 Output, Chest 635 165 Tube Drainage Output, Other 700 Output, Urine 1200 260 Patient 78.7 kg Weight Weight Bed scale Measurement Method PATIENT WEIGHT: Weight (lb): 173 Weight (oz): 8.06 Weight (kg): 78.471 Medications: Active Meds + DC'd Last 24 Hrs Ipratropium [place] (ATROVENT) 500 MCG RTQ2H PRN PRN INH Cyanocobalamin (Vitamin B-12 500 mcg tab) 500 MC G DAILY PO Ferrous Sulfate (FERROUS SULFATE) 325 MG DAILY P O Bisacodyl (DULCOLAX) 10 MG ONCE PRN RECTAL Magnesium Hydroxide (MILK OF MAGNESIA) 30 ML ONC E PRN PO Atorvastatin Calcium (LIPITOR) 40 MG 2100 PO Dopamine HCl/Dextrose (DOPamine 400MG/D5W 250ML) 250 ML ASDIR IV Clopidogrel Bisulfate (Plavix) 75 MG DAILY PO Polyethylene Glycol (MIRALAX) 17 GM DAILY PO Pantoprazole (PROTONIX) 40 MG DAILY@0600 PO Aspirin (ASPIRIN) 81 MG DAILY PO Amiodarone HCl (CORDARONE) 200 MG TID PO Docusate Sodium (COLACE) 100 MG BID PO Gabapentin (NEURONTIN) 200 MG BID PO Melatonin (Melatonin) 6 MG BEDTIME PO Metoprolol Tartrate (LOPRESSOR) 12.5 MG Q12HR P O Sennosides (Senna Lax 8.6 MG TABLET) 17.2 MG BED TIME PO Fentanyl Citrate (SUBLIMAZE) 50 MCG Q3H PRN PRN IV Tramadol HCl (ULTRAM) 50 MG Q4H PRN PRN PO Tramadol HCl (ULTRAM) 25 MG QID PRN PO Ipratropium [place] (ATROVENT) 500 MCG RTQ4H INH Acetaminophen (TYLENOL) 650 MG Q4H PRN PRN PO Acetaminophen (TYLENOL) 650 MG Q4H PRN PRN RECTA L Albumin Human (ALBUMINAR 25%) 25 GM ASDIR PRN IV Calcium Chloride (CALCIUM CHLORIDE) 1 GM ASDIR P RN IV Dextrose/Water (DEXTROSE 10% IN WATER) 125 ML DIR PRN IV (CKD) Dextrose/Water (DEXTROSE 10% IN WATER) 250 ML DIR PRN IV (CKD) Epinephrine (ADRENALIN CHLORIDE) 4 MG ASDIR IV Dextrose/Water (DEXTROSE 5% WATER) 246 ML Glucagon (GLUCAGON) 1 MG ASDIR PRN IM Insulin Human Regular (HumuLIN R) 100 UNIT ASDIR IV (CKD) Sodium Chloride (SODIUM CHLORIDE 0.9%) 99 ML Magnesium Sulfate (MAGNESIUM SULFATE 4GM/SWFI 10 0ML) 100 ML ASDIR PRN IV Magnesium Sulfate (MAGNESIUM SULFATE 2GM/SWFI 50 ML) 50 ML ASDIR PRN IV Magnesium Sulfate/Dextrose (MAGNESIUM SULFATE 1G M/D5W 100ML) 100 ML ASDIR PRN IV Nitroglycerin/Dextrose (NITROGLYCERIN 50, 000MCG/D5W 250ML) 250 ML ASDIR IV Norepinephrine Bitartrate (NOREPINEPHRINE 8 MG/N S 250 ML) 250 ML TITRATE IV Ondansetron HCl (ZOFRAN) 4 MG Q6H PRN PRN IV Potassium Chloride (KCL 20MEQ/SWFI 100ML) 100 ML ASDIR PRN IV Sodium Bicarbonate (SODIUM BICARBONATE) 50 MEQ A SDIR PRN IV Sodium Chloride (SODIUM CHLORIDE 0.9%) 1,000 ML .Q20H IV Sodium Chloride (SODIUM CHLORIDE 0.9%) 250 ML Q2 4H IV Physical Exam General appearance: alert, awake, oriented, no a cute distress Neck: non-tender Cardiovascular: CV assessment: regular rate and rhythm Respiratory: decreased breath sounds, on oxygen, no distress Abdomen: soft, non-tender, normal bowel sounds, no distention Genitourinary: urinary catheter, urine Lower extremity: LE assessment: no edema Musculoskeletal: normal inspection Neuro/RN ELIGIBILITY: alert, oriented X 3, normal speech Skin: dry Psychiatry: normal affect, normal mood Results Findings/Data: Laboratory Tests 09/27 09/26 09/26 09/26 0447 2042 1715 1635 Blood Gas Puncture Site Art Line Art Line Art Line O2 Saturation (90 - 100 %) 95.2 96.6 94.7 97.4 ABG pH (7.35 - 7.45) 7.380 7.373 7.334 L 7.344 L ABG pCO2 (35.0 - 45 mmHg) 38.9 35.2 43.6 43.6 ABG pO2 (80 - 100.0 mmHg) 78.3 L 87.7 78.1 L 10 0.5 H ABG PO2/FiO2 Ratio (mm/Hg) 279.64 243.61 ABG HCO3 (22.0 - 26.0 MMOL/L) 23.0 20.5 L 23.3 23.7 ABG Total CO2 24.2 21.6 24.6 25.0 ABG Base Excess (-4.0 - 4.0 MMOL/L) -2.0 -4.3 L -2.7 -2.0 ABG Hematocrit (37.5 - 50.7 %) 24 L 25 L 25 L 2 6 L ABG Hemoglobin (12.5 - 16.9 G/DL) 8.1 L 8.5 L 8 .7 L 8.7 L Sodium (134 - 147 mmol/L) 138 139 141 139 Potassium (3.4 - 5.0 mmol/L) 4.4 4.7 3.4 3.3 L Chloride (100 - 108 mmol/L) 105 104 107 108 Ionized Calcium (1.12 - 1.32 MMOL/L) 1.19 1.08 L 1.21 1.14 Lactic Acid (0.9 - 1.7 mmol/l) 0.9 1.5 2.5 H Temperature (F) 98 O2 Delivery Device HFNC HFNC HFNC Cannula FiO2 (%) 28 36 09/26 1522 Blood Gas O2 Saturation (90 - 100 %) 95.9 ABG pH (7.35 - 7.45) 7.278 *L ABG pCO2 (35.0 - 45 mmHg) 52.5 *H ABG pO2 (80 - 100.0 mmHg) 92.6 ABG HCO3 (22.0 - 26.0 MMOL/L) 24.6 ABG Total CO2 26.2 ABG Base Excess (-4.0 - 4.0 MMOL/L) -2.4 ABG Hematocrit (37.5 - 50.7 %) 26 L ABG Hemoglobin (12.5 - 16.9 G/DL) 8.8 L Sodium (134 - 147 mmol/L) 140 Potassium (3.4 - 5.0 mmol/L) 3.3 L Chloride (100 - 108 mmol/L) 108 Ionized Calcium (1.12 - 1.32 MMOL/L) 1.31 Lactic Acid (0.9 - 1.7 mmol/l) 1.4 Laboratory Tests 09/27 09/27 09/27 09/27 09/27 1437 1226 1131 0733 5527 Chemistry POC Creatinine (0.8 - 1.3 mg/dL) 1.0 POC Glucose (70 - 110 MG/DL) 149 H 162 H 213 H 141 H POC Glucose (mg/dL) (70 - 110 MG/DL) 118 H 09/27 09/27 09/27 09/26 09/26 0210 0210 0127 2326 2042 Chemistry Sodium (134 - 147 mEq/L) 139 Potassium (3.4 - 5.0 mEq/L) 4.8 Chloride (100 - 108 mEq/L) 109 H Carbon Dioxide (21 - 33 mEq/l) 24 Anion Gap (0 - 20) 11 BUN (7 - 18 mg/dL) 9 Creatinine (0.6 - 1.3 mg/dL) 0.9 POC Creatinine (0.8 - 1.3 mg/dL) 0.8 Glomerular Filtr Rate (70 - 80) 86.3 H Glucose (70 - 110 mg/dL) 140 H POC Glucose (70 - 110 MG/DL) 137 H 150 H POC Glucose (mg/dL) (70 - 110 MG/DL) 172 H Calcium (8.0 - 10.5 mg/dL) 8.1 Ionized Calcium Tim (1.09 - 1.30 1.09 MMOL/L) Magnesium (1.80 - 2.40 mg/dL) 2.10 Total Bilirubin (0.0 - 1.0 mg/dL) 0.60 Direct Bilirubin (0.0 - 0.30 MG/DL) 0.30 Indirect Bilirubin (MG/DL) 0.30 AST (15 - 37 IUnit/L) 52 H ALT (30 - 65 IUnit/L) 28 L Total Alk Phosphatase (20 - 125 29 IUnit/L) Total Protein (6.4 - 8.2 g/dL) 5.1 L Albumin (3.4 - 5.0 g/dL) 3.60 09/26 09/26 09/26 09/26 09/26 1829 1715 1704 1635 1630 Chemistry Sodium (134 - 147 mEq/L) 142 Potassium (3.4 - 5.0 mEq/L) 3.3 L Chloride (100 - 108 mEq/L) 109 H Carbon Dioxide (21 - 33 mEq/l) 24 Anion Gap (0 - 20) 12 BUN (7 - 18 mg/dL) 9 Creatinine (0.6 - 1.3 mg/dL) 0.9 POC Creatinine (0.8 - 1.3 mg/dL) 0.9 0.9 Glomerular Filtr Rate (70 - 80) 86.3 H Glucose (70 - 110 mg/dL) 113 H POC Glucose (70 - 110 MG/DL) 150 H 49 L POC Glucose (mg/dL) (70 - 110 MG/DL) 99 116 H Calcium (8.0 - 10.5 mg/dL) 8.5 Magnesium (1.80 - 2.40 mg/dL) 2.80 H 09/26 1522 Chemistry POC Creatinine (0.8 - 1.3 mg/dL) 0.9 POC Glucose (mg/dL) (70 - 110 MG/DL) 144 H Laboratory Tests 09/2725 1630 1524 Coagulation INR (0.8 - 1.2) 1.4 H 1.6 H PTT ([place]) (25.0 - 39.5 Seconds) 31.3 40.7 H PT Patient/Control Mix (9.3 - 12.9 SECONDS) 15. 6 H 18.1 H Activated Coag Time (74 - 137 SEC) 143 H Laboratory Tests 09/27 09/27 09/26 0525 0210 1630 Hematology WBC (4.5 - 11.0 x10 3/uL) 9.5 9.1 12.8 H RBC (4.00 - 5.60 x10 6/uL) 2.97 L 2.92 L 3.05 L Hgb (12.5 - 16.9 g/dL) 9.5 L 9.4 L 9.9 L Hct (37.5 - 50.7 %) 27.6 L 27.0 L 28.3 L MCV (81.0 - 99.0 fL) 92.9 92.5 92.8 MCH (27.0 - 33.0 pg) 32.0 32.2 32.5 MCHC (33.0 - 37.0 g/dL) 34.4 34.8 35.0 RDW (11.5 - 14.5 %) 14.0 13.8 13.8 Plt Count (150 - 400 x10 3/uL) 109 L 106 L 104 L MPV (7.0 - 9.0 fL) 11.4 H 11.1 H 10.8 H Neut % (Auto) (56.0 - 77.0 %) 82.8 H 86.6 H 86. 9 H Lymph % (Auto) (14.0 - 32.0 %) 7.7 L 4.4 L 7.5 L Isabella % (Auto) (4.8 - 9.0 %) 9.0 8.6 4.5 L Eos % (Auto) (0.3 - 3.7 %) 0.1 L 0.0 L 0.2 L Baso % (Auto) (0.0 - 2.0 %) 0.1 0.1 0.1 Neut # (Auto) (2.0 - 7.6 x10 3/uL) 7.88 H 7.83 H 11.11 H Lymph # (Auto) (1.0 - 3.8 x10 3/uL) 0.73 L 0.4 0 L 0.96 L Isabella # (Auto) (0.1 - 0.8 x10 3/uL) 0.86 H 0.78 0.58 Eos # (Auto) (0.0 - 0.2 x10 3/uL) 0.01 0.00 0.0 2 Baso # (Auto) (0.0 - 0.2 x10 3/uL) 0.01 0.01 0. 01 Abs Immat Gran (auto) (0.00 - 0.03 x10 3/uL) 0. 03 0.03 0.10 H Add Manual Diff NO NO NO Immature Gran % (0.0 - 2.0 %) 0.3 0.3 0.8 Nucleated RBC % (0 - 0 %) 0.0 0.0 0.0 Nucleated RBCs # (Man) (0.0 - 0.1 x10 3/uL) 0.0 0 0.00 0.00 Laboratory Tests 09/27 09/26 0210 1630 Chemistry Magnesium (1.80 - 2.40 mg/dL) 2.10 2.80 H Radiology Data: Recent Impressions: RADIOLOGY - XR CHEST 1 V 09/26 1627 Report Impression - Status: SIGNED Entered: 09/26/2022 1740 IMPRESSION: 1. Small bilateral pleural effusions. 2. Moderate pulmonary edema versus infiltrates, pneumonia. 3. Moderate enlarged cardiac silhouette. Impression By: [email or web address] - Nayan Jacobsen M.D. RADIOLOGY - XR CHEST 1 V 09/27 0509 Report Impression - Status: SIGNED Entered: 09/27/2022 0747 IMPRESSION: 1. Linear bilateral lower chest pulmonary atelec tasis, or scarring. 2. Moderate enlarged cardiac silhouette. 3. Mild interstitial pulmonary edema versus infi ltrates. 4. Small bilateral pleural effusions. Impression By: [email or web address] - Nayan Jacobsen M.D. Results: labs reviewed, vital signs reviewed, [facility] personally rev'd EKG Interpretation: normal sinus rhythm (sinus r hythm) Diagnosis, Assessment Plan Problem List/A P: 1. S/P CABG x 2 2. S/P AVR 3. CAD (coronary artery disease) 4. Severe aortic stenosis Consultants: cardiovascular surgery Plan discussed with: patient Free Text DxA P Notes Free Text DxA P Notes: 82 YO male with MHx of DM, HLD, . He presented to [facility] with CP, found to have NSTEMI. LHC ensued that showed sev ere multivessel CAD. He is transferred to us and underwent CABG and AVR on 09/26/22. 1. Multivessel CAD S/p CABG x2 (NAIR to LAD and SVG to OM), ALAA, a nd SAVR on DAPT, BB, statin extubated, awake and alert with acceptable hemod ynamics post-op care per CTS 2. s/p SAVR continue DAPT 3. Hypertension BP Stable continue BB 4. Diabetes mellitus glucose control per critical care Appreciate the referral. at 1504 Electronically Signed by Jakob Pa MD on at 0851 RPT #:[id number] END OF REPORT 2022-09-27 12:32:00-00:00 [facility] ([facility] Hospitalist Progress Note REPORT#:[id number] REPORT STATUS: Signed DATE:09/27/22 TIME: 1232 PATIENT: MONICA BECK UNIT #: [id number] ROOM/BED: 2204-1 : 42 AGE: 82 SEX: M ATTEND: Nicolasa Maria MD ADM AUTHOR: Chiki Fernandez MD * ALL edits or amendments must be made on the el [employer]/computer document * Subjective Chief complaint: NOT FEELING WELL YET, BUT SITTING IN CHAIR NOW HPI: 82-year-old male with past m edical history of hypertension, hyperlipidemia, type 2 diabetes mellitus, restless leg syndro me, and aortic stenosis is transferred here from [facility], where he presen tamra today with complaint of chest pain for the past few weeks. Patie nt complained of substernal chest pain associated with diaphoresis. He was found to hav e elevated troponin I and cardiology was consulted. Patient had left heart catheterization, the results of which are not available at this time. He was then transferred to [facility] for evaluation by cardiothoracic surge ry. Objective General VS/I O: Vital Signs: Date Time Temp Pulse Resp B/P B/P Pulse O2 O2 F low FiO2 Mean Ox Delivery Rate 05/09 1102 74 24 114/46 67 94 05/09 1100 111/55 76 05/09 1100 73 23 110/44 64 94 05/09 1045 111/57 81 05/09 1045 72 22 108/42 63 95 05/09 1039 76 25 106/43 63 94 05/09 1030 113/58 82 05/09 1030 75 21 111/45 66 95 05/09 1016 117/53 76 05/09 1016 74 21 113/45 66 93 05/09 1000 71 20 115/46 68 95 05/09 0945 118/67 87 05/09 0945 76 26 117/46 70 94 05/09 0940 130/75 95 05/09 0940 74 33 122/49 72 93 05/09 0938 73 05/09 0938 121/60 84 05/09 0938 19 95 05/09 0915 107/54 78 05/09 0915 72 27 117/53 72 92 05/09 0900 74 28 109/54 72 93 05/09 0845 134/60 86 05/09 0845 77 33 131/59 82 95 05/09 0830 95/50 70 05/09 0830 71 23 111/50 70 96 05/09 0815 111/53 76 05/09 0815 72 22 118/55 75 94 05/09 0812 94 Nasal 2 cannula 05/09 0800 109/55 79 05/09 0800 69 25 109/49 69 93 05/09 0745 113/54 78 05/09 0745 69 27 116/54 74 05/09 0730 89/45 65 05/09 0730 68 30 108/49 68 95 05/09 0715 96/52 71 05/09 0715 69 27 106/49 66 96 05/09 0700 Nasal 2 cannula 05/09 0700 95/53 69 05/09 0700 70 26 108/49 67 97 05/09 0630 86/49 63 05/09 0630 71 21 93/43 58 94 05/09 0600 96/55 72 05/09 0600 74 20 103/46 64 94 05/09 0530 99/55 74 05/09 0530 72 20 106/47 65 94 05/09 0515 85/49 62 05/09 0515 75 27 110/50 69 95 05/09 0500 79 42 94/43 61 05/09 0400 97/55 72 05/09 0400 97.7 77 19 104/44 63 97 05/09 0330 95/57 71 05/09 0330 97.9 77 21 115/54 74 98 05/09 0327 95 Nasal 2 cannula 05/09 0300 97/51 70 05/09 0300 97.9 74 17 100/44 61 98 05/09 0203 94/51 68 05/09 0203 97.9 77 18 92/43 58 97 05/09 0100 109/58 78 05/09 0100 98.6 76 18 121/54 75 96 05/09 0000 110/59 79 05/09 0000 98.2 76 18 122/54 75 97 05/08 2300 115/61 82 05/08 2300 98.2 77 18 130/56 79 95 05/08 2200 122/63 87 05/08 2200 98.1 79 22 129/55 79 97 05/08 2100 137/65 94 05/08 2100 97.7 82 24 143/62 89 98 05/08 2000 121/55 81 05/08 1999 97.5 78 20 127/53 77 99 05/08 1936 97 Nasal 4 cannula 05/08 1932 125/61 86 05/08 1932 97.2 78 16 136/61 86 97 05/08 1915 97.0 75 14 130/55 80 96 05/08 1910 High flow 4 nasal cannula 05/08 1900 107/59 80 05/08 1900 97.0 74 9 120/49 72 96 05/08 1845 97.0 74 19 116/46 69 97 05/08 1830 97.2 74 22 110/45 66 95 05/08 1815 97.2 75 17 103/44 62 96 05/08 1800 94/51 67 05/08 1800 97.2 74 8 100/43 61 97 05/08 1745 97.3 77 15 113/51 70 96 05/08 1730 97.3 76 13 113/49 69 96 05/08 1700 105/53 74 05/08 1700 97.7 75 21 103/43 62 95 05/08 1645 97.9 75 12 116/31 64 95 05/08 1630 98.2 75 14 123/47 72 98 05/08 1620 Nasal 10 cannula 24 hour I O ending at 0700: 05/09 0700 05/08 1900 Intake Total 1581.00 2720.00 Output Total 1835 1125 Balance -254.00 1595.00 Intake, IV 1101.00 800.00 Intake, Oral 480 120 Intake, Other 1800 Output, Chest 635 165 Tube Drainage Output, Other 700 Output, Urine 1200 260 Patient 174 lb Weight Weight Bed scale Measurement Method PATIENT WEIGHT: Weight (lb): 173 Weight (oz): 8.06 Weight (kg): 78.471 Medications: Active Meds + DC'd Last 24 Hrs Ipratropium [place] (ATROVENT) 500 MCG RTQ2H PRN PRN INH Cyanocobalamin (Vitamin B-12 500 mcg tab) 500 MC G DAILY PO Ferrous Sulfate (FERROUS SULFATE) 325 MG DAILY P O Bisacodyl (DULCOLAX) 10 MG ONCE PRN RECTAL Magnesium Hydroxide (MILK OF MAGNESIA) 30 ML ONC E PRN PO Atorvastatin Calcium (LIPITOR) 40 MG 2100 PO Lactated Ringer's (LACTATED RINGERS) 500 ML BOLU S ONCE ONE IV Dopamine HCl/Dextrose (DOPamine 400MG/D5W 250ML) 250 ML ASDIR IV Clopidogrel Bisulfate (Plavix) 75 MG DAILY PO Polyethylene Glycol (MIRALAX) 17 GM DAILY PO Albumin Human (ALBUMINAR 5% 12.5GM/250ML) 250 ML ONCE IV (DC) Calcium Gluconate (Calcium Gluconate 1 GM/NS 50 mL) 50 ML ONCE ONE IV ( DC) Pantoprazole (PROTONIX) 40 MG DAILY@0600 PO Aspirin (ASPIRIN) 81 MG DAILY PO Amiodarone HCl (CORDARONE) 200 MG TID PO Docusate Sodium (COLACE) 100 MG BID PO Gabapentin (NEURONTIN) 200 MG BID PO Melatonin (Melatonin) 6 MG BEDTIME PO Metoprolol Tartrate (LOPRESSOR) 12.5 MG Q12HR PO Sennosides (Senna Lax 8.6 MG TABLET) 17.2 MG BE DTIME PO Fentanyl Citrate (SUBLIMAZE) 50 MCG Q3H PRN PRN IV Tramadol HCl (ULTRAM) 50 MG Q4H PRN PRN PO Tramadol HCl (ULTRAM) 25 MG QID PRN PO Glycopyrrolate (GLYCOPYRROLATE) 0 .STK-MED ONE . ROUTE (DC) Neostigmine Methylsulfate (PROSTIGMIN) 0 .STK-ME D ONE .ROUTE (DC) Ipratropium [place] (ATROVENT) 500 MCG RTQ4H INH Albumin Human (ALBUMINAR-25%) 100 ML .STK-MED ON E IV (DC) Lidocaine HCl (XYLOCAINE) 0 .STK-MED ONE .ROUTE (DC) Acetaminophen (TYLENOL) 650 MG Q4H PRN PRN PO Acetaminophen (TYLENOL) 650 MG Q4H PRN PRN RECTA L Albumin Human (ALBUMINAR 25%) 25 GM ASDIR PRN IV Calcium Chloride (CALCIUM CHLORIDE) 1 GM ASDIR P RN IV Cefazolin Sodium (KEFZOL OR ANCEF) 3 GM ONCE ONE IV (DC) Sodium Chloride (SODIUM CHLORIDE 0.9%) 250 ML Chlorhexidine Gluconate (PERIDEX) 15 ML Q2H MM ( DC) Dextrose/Water (DEXTROSE 10% IN WATER) 125 ML DIR PRN IV (CKD) Dextrose/Water (DEXTROSE 10% IN WATER) 250 ML DIR PRN IV (CKD) Epinephrine (ADRENALIN CHLORIDE) 4 MG ASDIR IV Dextrose/Water (DEXTROSE 5% WATER) 246 ML Glucagon (GLUCAGON) 1 MG ASDIR PRN IM Insulin Human Regular (HumuLIN R) 100 UNIT ASDIR IV (CKD) Sodium Chloride (SODIUM CHLORIDE 0.9%) 99 ML Magnesium Sulfate (MAGNESIUM SULFATE 4GM/SWFI 10 0ML) 100 ML ASDIR PRN IV Magnesium Sulfate (MAGNESIUM SULFATE 2GM/SWFI 50 ML) 50 ML ASDIR PRN IV Magnesium Sulfate/Dextrose (MAGNESIUM SULFATE 1G M/D5W 100ML) 100 ML ASDIR PRN IV Nitroglycerin/Dextrose (NITROGLYCERIN 50,000MCG/ D5W 250ML) 250 ML ASDIR IV Norepinephrine Bitartrate (NOREPINEPHRINE 8 MG/N S 250 ML) 250 ML TITRATE IV Ondansetron HCl (ZOFRAN) 4 MG Q6H PRN PRN IV Potassium Chloride (KCL 20MEQ/SWFI 100ML) 100 ML ASDIR PRN IV Sodium Bicarbonate (SODIUM BICARBONATE) 50 MEQ A SDIR PRN IV Sodium Chloride (SODIUM CHLORIDE 0.9%) 1,000 ML .Q20H IV Sodium Chloride (SODIUM CHLORIDE 0.9%) 250 ML Q2 4H IV Albumin Human (ALBUMINAR-25%) 50 ML .STK-MED ONE IV (DC) Cefazolin Sodium (KEFZOL OR ANCEF) 2 GM PREOP 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 IV (DC) Vancomycin HCl (VANCOMYCIN HCL) 1,000 MG PREOP O NCALL IV (DC) Sodium Chloride (SODIUM CHLORIDE 0.9%) 250 ML Verapamil HCl (ISOPTIN) 16.6 MG .Q24H ONE IV (DC ) Heparin Sodium (Porcine) (HEPARIN SODIUM) 1,660 UNIT Sodium Bicarbonate (SODIUM BICARBONATE) 0.7 ML Nitroglycerin/Dextrose (NITROGLYCERIN 50MG/D5W 250ML) 8.3 MG Lactated Ringer's (LACTATED RINGERS) 949.5 ML Mupirocin (BACTROBAN 2% 22 GM OINTMENT) 1 APPLIC BID NASAL (DC) Acetaminophen (TYLENOL EXTRA STRENGTH) 1,000 MG PREOP ONCALL PO (DC) Gabapentin (NEURONTIN) 200 MG PREOP ONCALL PO (D C) Sodium Chloride (SODIUM CHLORIDE) 20 ML ASDIR IV (DC) Aspirin (ASPIRIN) 81 MG DAILY PO (DC) Insulin Human Lispro (HUMALOG) 0 AC HS SUBQ (DC) Acetaminophen (TYLENOL) 650 MG Q4H PRN PRN PO (D C) Al Hydrox/Mg Hydrox/Simethicone (MYLANTA) 30 ML Q4H PRN PRN PO (DC) Dextrose/Water (DEXTROSE 10% IN WATER) 125 ML DIR PRN IV (DC) Dextrose/Water (DEXTROSE 10% IN WATER) 250 ML DIR PRN IV (DC) Glucagon (GLUCAGON) 1 MG ASDIR PRN IM (DC) Hydralazine HCl (APRESOLINE) 10 MG Q6H PRN PRN I V (DC) Hydrocodone Bitart/Acetaminophen (NORCO 5/325) 1 TAB Q6H PRN PRN PO (DC) Magnesium Hydroxide (MILK OF MAGNESIA) 15 ML Q6H PRN PRN PO (DC) Morphine Sulfate (morphine SULFATE) 2 MG Q1H PRN PRN IV (DC) Ondansetron HCl (ZOFRAN) 4 MG Q4H PRN PRN IV (DC ) Temazepam (RESTORIL) 15 MG BEDTIME PRN PRN PO (D C) Heparin Sodium (HEPARIN 5000 UNITS/ML) 0 ASDIR P RN IV (DC) Heparin Sodium (Porcine) (HEPARIN 25,000 UNITS/ 1/2NS 500ML) 500 ML ASDIR IV (DC) Physical Exam General appearance: chronically ill appearing, a lert, awake Head/Eyes: CH[place]OL[place] HAIR AND ADAMES, WEARING EYEGLASS ES Neck: no JVD Cardiovascular: normal heart sounds, regular rat e rhythm Respiratory: aerating well, clear to auscultatio n Abdomen: non-tender, normal bowel sounds, soft Extremities: no edema Musculoskeletal: normal inspection Neuro/RN ELIGIBILITY: no motor deficits Skin: normal color Psychiatry: normal affect, normal judgment/insig ht Results Findings/Data: Laboratory Tests 09/27 09/26 09/26 09/26 0447 2042 1715 1635 Blood Gas Puncture Site Art Line Art Line Art Line O2 Saturation (90 - 100 %) 95.2 96.6 94.7 97.4 ABG pH (7.35 - 7.45) 7.380 7.373 7.334 L 7.344 L ABG pCO2 (35.0 - 45 mmHg) 38.9 35.2 43.6 43.6 ABG pO2 (80 - 100.0 mmHg) 78.3 L 87.7 78.1 L 10 0.5 H ABG PO2/FiO2 Ratio (mm/Hg) 279.64 243.61 ABG HCO3 (22.0 - 26.0 MMOL/L) 23.0 20.5 L 23.3 23.7 ABG Total CO2 24.2 21.6 24.6 25.0 ABG Base Excess (-4.0 - 4.0 MMOL/L) -2.0 -4.3 L -2.7 -2.0 ABG Hematocrit (37.5 - 50.7 %) 24 L 25 L 25 L 2 6 L ABG Hemoglobin (12.5 - 16.9 G/DL) 8.1 L 8.5 L 8 .7 L 8.7 L Sodium (134 - 147 mmol/L) 138 139 141 139 Potassium (3.4 - 5.0 mmol/L) 4.4 4.7 3.4 3.3 L Chloride (100 - 108 mmol/L) 105 104 107 108 Ionized Calcium (1.12 - 1.32 MMOL/L) 1.19 1.08 L 1.21 1.14 Lactic Acid (0.9 - 1.7 mmol/l) 0.9 1.5 2.5 H Temperature (F) 98 O2 Delivery Device HFNC HFNC HFNC Cannula FiO2 (%) 28 36 09/26 09/26 09/26 09/26 1522 1358 1336 1259 Blood Gas O2 Saturation (90 - 100 %) 95.9 100.0 100.0 100 .0 ABG pH (7.35 - 7.45) 7.278 *L 7.400 7.446 7.422 ABG pCO2 (35.0 - 45 mmHg) 52.5 *H 40.0 34.0 L 39.8 ABG pO2 (80 - 100.0 mmHg) 92.6 394.9 *H 417.0 * H 525.6 *H ABG HCO3 (22.0 - 26.0 MMOL/L) 24.6 24.8 23.4 2 5.9 ABG Total CO2 26.2 26.0 24.5 27.1 ABG Base Excess (-4.0 - 4.0 MMOL/L) -2.4 0.0 -0 .3 1.4 ABG Hematocrit (37.5 - 50.7 %) 26 L 29 L 30 L 2 9 L ABG Hemoglobin (12.5 - 16.9 G/DL) 8.8 L 9.7 L 1 0.0 L 9.8 L Sodium (134 - 147 mmol/L) 140 139 139 139 Potassium (3.4 - 5.0 mmol/L) 3.3 L 4.3 4.0 5.1 H Chloride (100 - 108 mmol/L) 108 105 104 103 Ionized Calcium (1.12 - 1.32 MMOL/L) 1.31 1.04 L 1.00 L 0.99 L Lactic Acid (0.9 - 1.7 mmol/l) 1.4 0.9 0.9 0.5 L Laboratory Tests 09/27 09/27 09/27 09/27 09/27 1131 0733 0447 0210 0210 Chemistry Sodium (134 - 147 mEq/L) 139 Potassium (3.4 - 5.0 mEq/L) 4.8 Chloride (100 - 108 mEq/L) 109 H Carbon Dioxide (21 - 33 mEq/l) 24 Anion Gap (0 - 20) 11 BUN (7 - 18 mg/dL) 9 Creatinine (0.6 - 1.3 mg/dL) 0.9 POC Creatinine (0.8 - 1.3 mg/dL) 1.0 Glomerular Filtr Rate (70 - 80) 86.3 H Glucose (70 - 110 mg/dL) 140 H POC Glucose (70 - 110 MG/DL) 213 H 141 H POC Glucose (mg/dL) (70 - 110 MG/DL) 118 H Calcium (8.0 - 10.5 mg/dL) 8.1 Ionized Calcium Tim (1.09 - 1.30 MMOL/L) 1.09 Magnesium (1.80 - 2.40 mg/dL) 2.10 Total Bilirubin (0.0 - 1.0 mg/dL) 0.60 Direct Bilirubin (0.0 - 0.30 MG/DL) 0.30 Indirect Bilirubin (MG/DL) 0.30 AST (15 - 37 IUnit/L) 52 H ALT (30 - 65 IUnit/L) 28 L Total Alk Phosphatase (20 - 125 IUnit/L) 29 Total Protein (6.4 - 8.2 g/dL) 5.1 L Albumin (3.4 - 5.0 g/dL) 3.60 09/27 09/26 09/26 09/26 09/26 0127 2326 2042 1829 1715 Chemistry POC Creatinine (0.8 - 1.3 mg/dL) 0.8 0.9 POC Glucose (70 - 110 MG/DL) 137 H 150 H 150 H POC Glucose (mg/dL) (70 - 110 MG/DL) 172 H 99 09/26 09/26 09/26 09/26 09/26 1704 1635 1630 1522 1358 Chemistry Sodium (134 - 147 mEq/L) 142 Potassium (3.4 - 5.0 mEq/L) 3.3 L Chloride (100 - 108 mEq/L) 109 H Carbon Dioxide (21 - 33 mEq/l) 24 Anion Gap (0 - 20) 12 BUN (7 - 18 mg/dL) 9 Creatinine (0.6 - 1.3 mg/dL) 0.9 POC Creatinine (0.8 - 1.3 mg/dL) 0.9 0.9 0.8 Glomerular Filtr Rate (70 - 80) 86.3 H Glucose (70 - 110 mg/dL) 113 H POC Glucose (70 - 110 MG/DL) 49 L POC Glucose (mg/dL) (70 - 110 MG/DL) 116 H 144 H 145 H Calcium (8.0 - 10.5 mg/dL) 8.5 Magnesium (1.80 - 2.40 mg/dL) 2.80 H 09/26 09/26 1336 1259 Chemistry POC Creatinine (0.8 - 1.3 mg/dL) 0.9 0.9 POC Glucose (mg/dL) (70 - 110 MG/DL) 152 H 169 H Laboratory Tests 09/27 09/26 09/26 09/26 09/26 0525 1630 1524 1401 1338 Coagulation INR (0.8 - 1.2) 1.4 H 1.6 H PTT (Ruby) (25.0 - 39.5 Seconds) 31.3 40.7 H PT Patient/Control Mix (9.3 - 12.9 15.6 H 18.1 H SECONDS) Activated Coag Time (74 - 137 SEC) 143 H 756 H 817 H 08 1300 Coagulation Activated Coag Time (74 - 137 SEC) 883 H Laboratory Tests 09/27 09/27 09/26 0525 0210 1630 Hematology WBC (4.5 - 11.0 x10 3/uL) 9.5 9.1 12.8 H RBC (4.00 - 5.60 x10 6/uL) 2.97 L 2.92 L 3.05 L Hgb (12.5 - 16.9 g/dL) 9.5 L 9.4 L 9.9 L Hct (37.5 - 50.7 %) 27.6 L 27.0 L 28.3 L MCV (81.0 - 99.0 fL) 92.9 92.5 92.8 MCH (27.0 - 33.0 pg) 32.0 32.2 32.5 MCHC (33.0 - 37.0 g/dL) 34.4 34.8 35.0 RDW (11.5 - 14.5 %) 14.0 13.8 13.8 Plt Count (150 - 400 x10 3/uL) 109 L 106 L 104 L MPV (7.0 - 9.0 fL) 11.4 H 11.1 H 10.8 H Neut % (Auto) (56.0 - 77.0 %) 82.8 H 86.6 H 86. 9 H Lymph % (Auto) (14.0 - 32.0 %) 7.7 L 4.4 L 7.5 L Isabella % (Auto) (4.8 - 9.0 %) 9.0 8.6 4.5 L Eos % (Auto) (0.3 - 3.7 %) 0.1 L 0.0 L 0.2 L Baso % (Auto) (0.0 - 2.0 %) 0.1 0.1 0.1 Neut # (Auto) (2.0 - 7.6 x10 3/uL) 7.88 H 7.83 H 11.11 H Lymph # (Auto) (1.0 - 3.8 x10 3/uL) 0.73 L 0.40 L 0.96 L Isabella # (Auto) (0.1 - 0.8 x10 3/uL) 0.86 H 0.78 0.58 Eos # (Auto) (0.0 - 0.2 x10 3/uL) 0.01 0.00 0.0 2 Baso # (Auto) (0.0 - 0.2 x10 3/uL) 0.01 0.01 0. 01 Abs Immat Gran (auto) (0.00 - 0.03 x10 3/uL) 0. 03 0.03 0.10 H Add Manual Diff NO NO NO Immature Gran % (0.0 - 2.0 %) 0.3 0.3 0.8 Nucleated RBC % (0 - 0 %) 0.0 0.0 0.0 Nucleated RBCs # (Man) (0.0 - 0.1 x10 3/uL) 0.0 0 0.00 0.00 Radiology data: Recent Impressions: RADIOLOGY - XR CHEST 1 V 09/26 1627 Report Impression - Status: SIGNED Entered: 09/26/2022 1740 IMPRESSION: 1. Small bilateral pleural effusions. 2. Moderate pulmonary edema versus infiltrates, pneumonia. 3. Moderate enlarged cardiac silhouette. Impression By: Travis Jacobsen M.D. RADIOLOGY - XR CHEST 1 V 09/27 0509 Report Impression - Status: SIGNED Entered: 09/27/2022 0747 IMPRESSION: 1. Linear bilateral lower chest pulmonary atelec tasis, or scarring. 2. Moderate enlarged cardiac silhouette. 3. Mild interstitial pulmonary edema versus infi ltrates. 4. Small bilateral pleural effusions. Impression By: Travis Jacobsen M.D. Free Text Obj Notes Free Text Obj Notes: General appearance: alert, awake, oriented Head/Eyes: atraumatic, normocephalic ENT: moist mucosal membranes, normal pharynx Neck: non-tender, supple/no meningismus, no JVD Cardiovascular: normal capillary refill, normal heart sounds, regular rate rhythm Respiratory: aerating well, clear to auscultatio n, symmetric expansion Abdomen: non-tender, normal bowel sounds, soft, no distention Extremities: no clubbing, no cyanosis, no edema Neuro/RN ELIGIBILITY: alert, oriented X 3, CNII-XII intact Skin: dry, intact Psychiatry: normal affect, normal judgment/insig ht Diagnosis, Assessment Plan Consultants: cardiovascular surgery Free Text DxA P Notes Free text DxA P notes: NSTEMI, 3-V CAD, SEVERE , S/P CABGX2, S/P AVR, S/P LEYDI ISOLATION - CARD/CTS SEEN, PLAN PER CTS, ON CT/KING Patient found to have elevated troponin at outs [facility] Results of left heart cath not available at thi s time Continue aspirin 81 mg daily Atorvastatin 80 mg at bedtime Cardiothoracic surgery evaluation for CABG Pulmonary edema due to aortic stenosis - COMPENS ATED, ECHO EF 45-50%, DD Chest x-ray with bibasilar opacities BNP elevated at 3114 Hypertension - STABLE Resume home lisinopril 10 mg p.o. daily Hydralazine 10 mg IV every 6 hours as n eeded. Blood pressure greater than 170 Type 2 diabetes mellitus - GOOD, CONT ISS, HGBA1 C 6.8%, LDL 40 Hold home metformin, empagliflozin, and semaglu tide Low-dose sliding scale insulin before meals and at bedtime Hyperlipidemia LDL 40, CONT Atorvastatin 80 mg a t bedtime DVT prophylaxis: Heparin drip, cardiology protoc ol Diet: Carbohydrate consistent CODE STATUS: DO NOT RESUSCITATE Patient reports he has an advanced directive His medical power of banking attorney is son Guille de la vega Electronically Signed by Chiki Fernandez MD on 09/27 at 1234 RPT #:[id number] END OF REPORT 2022-09-27 11:53:00-00:00 [id number] [place] [address] PATIENT NAME: MONICA BECK ADMIT DATE: 0 09/24/22 ACCOUNT NO: [id number] ROOM NO: [facility] AGE: 82 REPORT TYPE: eELECTROCARDIOGRAM REPORT SEX: M ADMITTING PHYSICIAN:Kathya Maria MD ATTENDING PHYSICIAN:Kathya Maria MD Order: [id number] Test Reason : r/o afib Test Date/Time Stamp: MonSep 27 2022 11:53:47 Blood Pressure : / mmHG Vent. Rate : 076 BPM Atrial Rate : 076 BPM P-R Int : 200 ms QRS Dur : 152 ms QT Int : 444 ms P-R-T Axes : 000 -30 190 degree s QTc Int : 499 ms Normal sinus rhythm Left axis deviation Left bundle branch block Abnormal ECG When compared with ECG of 27-SEP-2022 04:00, Significant changes have occurred Confirmed by MD BRAULIO, ANA ([id number]) on 09/29/19 6:01:22 PM Referred By: Self Referred Confirmed by:ANA SANCHEZ MD Electronically Signed by Ana Ramsey MD on 0 09/28/22 at 1801 PATIENT NAME: MONICA BECK ACCOUNT #: [id number] 2022-09-27 08:25:00-00:00 [facility] ([facility]) Critical Care Progress Note REPORT#:[id number] REPORT STATUS: Signed DATE:09/27/22 TIME: 824 PATIENT: MONICA BECK UNIT #: [id number] ROOM/BED: [place] [id number] : 42 AGE: 82 SEX: M ATTEND: Nicolasa Maria MD ADM AUTHOR: Milton Mast MD * ALL edits or amendments must be made on the el [employer]/computer document * Subjective Chief complaint: CABG HPI: 82-year-old male with history of HTN, HL, NIDDM, aortic stenosis and restless leg syndrome, who presented to outside hospital with chest pain and found to have non-STEMI. Cardiac catheter revealed severe multivessel coronary artery disease. Patient underwent A VR (25 INSPIRIS), CABG X2 (NAIR-LAD, SVG-OM), ALAA, EVH (RGSV) and posterior per icardiotomy today at 09/26/2022. EF was 30-35% and it slightly improved postop 40% on ANKUR. Crystalloid 1.8 L, albumin 150, urine output 600, Cell Saver 250. Surgery went well so patient was extubated and transferred to CVICU postop in a stable surgical condition. He was weaned off all vasopressors coming off pump and is currently on nitroglycerin and insulin drip. Comments: Out of bed in the chair Urine output 1.2 L CTs output 340/245 ml On insulin drip Levophed at 1 williams Objective General VS/I O Last Documented: Result Date Time Pulse Ox 94 09/28 811 O2 Delivery Nasal cannula 09/28 811 O2 Flow Rate 2 09/28 811 B/P 95/53 09/27 699 B/P Mean 69 09/27 699 Pulse 70 09/27 699 Resp 26 09/27 699 Temp 97.7 09/27 0400 24 hour I O ending at 0700: 09/27 0700 09/26 1900 Intake Total 1581.00 2720.00 Output Total 1835 1125 Balance -254.00 1595.00 Intake, IV 1101.00 800.00 Intake, Oral 480 120 Intake, Other 1800 Output, Chest 635 165 Tube Drainage Output, Other 700 Output, Urine 1200 260 Patient 78.7 kg Weight Weight Bed scale Measurement Method PATIENT WEIGHT: Weight (lb): 173 Weight (oz): 8.06 Weight (kg): 78.700 Medications: Active Meds + DC'd Last 24 Hrs Ipratropium [place] (ATROVENT) 500 MCG RTQ2H PRN PRN INH Cyanocobalamin (Vitamin B-12 500 mcg tab) 500 MC G DAILY PO Ferrous Sulfate (FERROUS SULFATE) 325 MG DAILY P O Bisacodyl (DULCOLAX) 10 MG ONCE PRN RECTAL Magnesium Hydroxide (MILK OF MAGNESIA) 30 ML ONC E PRN PO Atorvastatin Calcium (LIPITOR) 40 MG 2100 PO Clopidogrel Bisulfate (Plavix) 75 MG DAILY PO Polyethylene Glycol (MIRALAX) 17 GM DAILY PO Albumin Human (ALBUMINAR 5% 12.5GM/250ML) 250 ML ONCE IV (CKD) Calcium Gluconate (Calcium Gluconate 1 GM/NS 50 mL) 50 ML ONCE ONE IV ( DC) Pantoprazole (PROTONIX) 40 MG DAILY@0600 PO Aspirin (ASPIRIN) 81 MG DAILY PO Amiodarone HCl (CORDARONE) 200 MG TID PO Docusate Sodium (COLACE) 100 MG BID PO Gabapentin (NEURONTIN) 200 MG BID PO Melatonin (Melatonin) 6 MG BEDTIME PO Metoprolol Tartrate (LOPRESSOR) 12.5 MG Q12HR PO Sennosides (Senna Lax 8.6 MG TABLET) 17.2 MG BED TIME PO Fentanyl Citrate (SUBLIMAZE) 50 MCG Q3H PRN PRN IV Tramadol HCl (ULTRAM) 50 MG Q4H PRN PRN PO Tramadol HCl (ULTRAM) 25 MG QID PRN PO Glycopyrrolate (GLYCOPYRROLATE) 0 .STK-MED ONE . ROUTE (DC) Neostigmine Methylsulfate (PROSTIGMIN) 0 .STK-ME D ONE .ROUTE (DC) Ipratropium [place] (ATROVENT) 500 MCG RTQ4H INH Albumin Human (ALBUMINAR-25%) 100 ML .STK-MED ON E IV (DC) Lidocaine HCl (XYLOCAINE) 0 .STK-MED ONE .ROUTE (DC) Acetaminophen (TYLENOL) 650 MG Q4H PRN PRN PO Acetaminophen (TYLENOL) 650 MG Q4H PRN PRN RECTA L Albumin Human (ALBUMINAR 25%) 25 GM ASDIR PRN IV Calcium Chloride (CALCIUM CHLORIDE) 1 GM ASDIR P RN IV Cefazolin Sodium (KEFZOL OR ANCEF) 3 GM ONCE ONE IV Sodium Chloride (SODIUM CHLORIDE 0.9%) 250 ML Chlorhexidine Gluconate (PERIDEX) 15 ML Q2H MM ( DC) Dextrose/Water (DEXTROSE 10% IN WATER) 125 ML DIR PRN IV (CKD) Dextrose/Water (DEXTROSE 10% IN WATER) 250 ML DIR PRN IV (CKD) Epinephrine (ADRENALIN CHLORIDE) 4 MG ASDIR IV Dextrose/Water (DEXTROSE 5% WATER) 246 ML Glucagon (GLUCAGON) 1 MG ASDIR PRN IM Insulin Human Regular (HumuLIN R) 100 UNIT ASDIR IV (CKD) Sodium Chloride (SODIUM CHLORIDE 0.9%) 99 ML Magnesium Sulfate (MAGNESIUM SULFATE 4GM/SWFI 10 0ML) 100 ML ASDIR PRN IV Magnesium Sulfate (MAGNESIUM SULFATE 2GM/SWFI 50 ML) 50 ML ASDIR PRN IV Magnesium Sulfate/Dextrose (MAGNESIUM SULFATE 1G M/D5W 100ML) 100 ML ASDIR PRN IV Nitroglycerin/Dextrose (NITROGLYCERIN 50,000MCG/ D5W 250ML) 250 ML ASDIR IV Norepinephrine Bitartrate (NOREPINEPHRINE 8 MG/N S 250 ML) 250 ML TITRATE IV Ondansetron HCl (ZOFRAN) 4 MG Q6H PRN PRN IV Potassium Chloride (KCL 20MEQ/SWFI 100ML) 100 ML ASDIR PRN IV Sodium Bicarbonate (SODIUM BICARBONATE) 50 MEQ A SDIR PRN IV Sodium Chloride (SODIUM CHLORIDE 0.9%) 1,000 ML .Q20H IV Sodium Chloride (SODIUM CHLORIDE 0.9%) 250 ML Q2 4H IV Albumin Human (ALBUMINAR-25%) 50 ML .STK-MED ONE IV (DC) Rocuronium [place] (ZEMURON) 0 .STK-MED ONE IV ( DC) Midazolam HCl (VERSED) 0 .STK-MED ONE .ROUTE (DC ) Cefazolin Sodium (KEFZOL OR ANCEF) 0 .STK-MED ON E .ROUTE (DC) Vancomycin HCl (VANCOMYCIN HCL) 0 .STK-MED ONE . ROUTE (DC) Etomidate (AMIDATE) 0 .STK-MED ONE IV (DC) Albumin Human (ALBUMINAR-25%) 100 ML .STK-MED ON E IV (DC) Heparin Sodium (HEPARIN SODIUM) 0 .STK-MED ONE . ROUTE (DC) Sodium Chloride (SODIUM CHLORIDE 0.9%) 100 ML .S TK-MED ONE IV (DC) Lidocaine HCl (XYLOCAINE IV) 0 .STK-MED ONE IV ( DC) Magnesium Sulfate (MAGNESIUM SULFATE) 0 .STK-MED ONE IV (DC) Phenylephrine HCl (JACOBO-SYNEPHRINE 10MG/ML AMP) 0 .STK-MED ONE .ROUTE (DC ) Sodium Bicarbonate (SODIUM BICARBONATE) 0 .STK-M ED ONE IV (DC) Fentanyl Citrate (SUBLIMAZE) 0 .STK-MED ONE IV ( DC) Fentanyl Citrate (SUBLIMAZE) 0 .STK-MED ONE IV ( DC) Cefazolin Sodium (KEFZOL OR ANCEF) 2 GM PREOP 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 IV (DC) Vancomycin HCl (VANCOMYCIN HCL) 1,000 MG PREOP O NCALL IV (DC) Sodium Chloride (SODIUM CHLORIDE 0.9%) 250 ML Verapamil HCl (ISOPTIN) 16.6 MG .Q24H ONE IV (DC ) Heparin Sodium (Porcine) (HEPARIN SODIUM) 1,660 UNIT Sodium Bicarbonate (SODIUM BICARBONATE) 0.7 ML Nitroglycerin/Dextrose (NITROGLYCERIN 50MG/D5W 250ML) 8.3 MG Lactated Ringer's (LACTATED RINGERS) 949.5 ML Mupirocin (BACTROBAN 2% 22 GM OINTMENT) 1 APPLIC BID NASAL (DC) Acetaminophen (TYLENOL EXTRA STRENGTH) 1,000 MG PREOP ONCALL PO (DC) Gabapentin (NEURONTIN) 200 MG PREOP ONCALL PO (D C) Sodium Chloride (SODIUM CHLORIDE) 20 ML ASDIR IV (DC) Aspirin (ASPIRIN) 81 MG DAILY PO (DC) Insulin Human Lispro (HUMALOG) 0 AC HS SUBQ (DC) Acetaminophen (TYLENOL) 650 MG Q4H PRN PRN PO (D C) Al Hydrox/Mg Hydrox/Simethicone (MYLANTA) 30 ML Q4H PRN PRN PO (DC) Dextrose/Water (DEXTROSE 10% IN WATER) 125 ML DIR PRN IV (DC) Dextrose/Water (DEXTROSE 10% IN WATER) 250 ML DIR PRN IV (DC) Glucagon (GLUCAGON) 1 MG ASDIR PRN IM (DC) Hydralazine HCl (APRESOLINE) 10 MG Q6H PRN PRN I V (DC) Hydrocodone Bitart/Acetaminophen (NORCO 5/325) 1 TAB Q6H PRN PRN PO (DC) Magnesium Hydroxide (MILK OF MAGNESIA) 15 ML Q6H PRN PRN PO (DC) Morphine Sulfate (morphine SULFATE) 2 MG Q1H PRN PRN IV (DC) Ondansetron HCl (ZOFRAN) 4 MG Q4H PRN PRN IV (DC ) Temazepam (RESTORIL) 15 MG BEDTIME PRN PRN PO (D C) Heparin Sodium (HEPARIN 5000 UNITS/ML) 0 ASDIR P RN IV (DC) Heparin Sodium (Porcine) (HEPARIN 25,000 UNITS/ 1/2NS 500ML) 500 ML ASDIR IV (DC) Results Findings/data: Laboratory Tests 09/27 09/26 09/26 09/26 0447 2042 1715 1635 Blood Gas Puncture Site Art Line Art Line Art Line O2 Saturation (90 - 100 %) 95.2 96.6 94.7 97.4 ABG pH (7.35 - 7.45) 7.380 7.373 7.334 L 7.344 L ABG pCO2 (35.0 - 45 mmHg) 38.9 35.2 43.6 43.6 ABG pO2 (80 - 100.0 mmHg) 78.3 L 87.7 78.1 L 10 0.5 H ABG PO2/FiO2 Ratio (mm/Hg) 279.64 243.61 ABG HCO3 (22.0 - 26.0 MMOL/L) 23.0 20.5 L 23.3 23.7 ABG Total CO2 24.2 21.6 24.6 25.0 ABG Base Excess (-4.0 - 4.0 MMOL/L) -2.0 -4.3 L -2.7 -2.0 ABG Hematocrit (37.5 - 50.7 %) 24 L 25 L 25 L 2 6 L ABG Hemoglobin (12.5 - 16.9 G/DL) 8.1 L 8.5 L 8 .7 L 8.7 L Sodium (134 - 147 mmol/L) 138 139 141 139 Potassium (3.4 - 5.0 mmol/L) 4.4 4.7 3.4 3.3 L Chloride (100 - 108 mmol/L) 105 104 107 108 Ionized Calcium (1.12 - 1.32 MMOL/L) 1.19 1.08 L 1.21 1.14 Lactic Acid (0.9 - 1.7 mmol/l) 0.9 1.5 2.5 H Temperature (F) 98 O2 Delivery Device HFNC HFNC HFNC Cannula FiO2 (%) 28 36 09/26 09/26 09/26 09/26 1522 1358 1336 1259 Blood Gas O2 Saturation (90 - 100 %) 95.9 100.0 100.0 100 .0 ABG pH (7.35 - 7.45) 7.278 *L 7.400 7.446 7.422 ABG pCO2 (35.0 - 45 mmHg) 52.5 *H 40.0 34.0 L 3 9.8 ABG pO2 (80 - 100.0 mmHg) 92.6 394.9 *H 417.0 *H 525.6 *H ABG HCO3 (22.0 - 26.0 MMOL/L) 24.6 24.8 23.4 25 .9 ABG Total CO2 26.2 26.0 24.5 27.1 ABG Base Excess (-4.0 - 4.0 MMOL/L) -2.4 0.0 -0 .3 1.4 ABG Hematocrit (37.5 - 50.7 %) 26 L 29 L 30 L 2 9 L ABG Hemoglobin (12.5 - 16.9 G/DL) 8.8 L 9.7 L 1 0.0 L 9.8 L Sodium (134 - 147 mmol/L) 140 139 139 139 Potassium (3.4 - 5.0 mmol/L) 3.3 L 4.3 4.0 5.1 H Chloride (100 - 108 mmol/L) 108 105 104 103 Ionized Calcium (1.12 - 1.32 MMOL/L) 1.31 1.04 L 1.00 L 0.99 L Lactic Acid (0.9 - 1.7 mmol/l) 1.4 0.9 0.9 0.5 L 09/26 09/26 1226 1109 Blood Gas O2 Saturation (90 - 100 %) 96.2 100.0 ABG pH (7.35 - 7.45) 7.185 *L 7.463 H ABG pCO2 (35.0 - 45 mmHg) 67.2 *H 34.1 L ABG pO2 (80 - 100.0 mmHg) 106.2 H 563.7 *H ABG HCO3 (22.0 - 26.0 MMOL/L) 25.4 24.4 ABG Total CO2 27.4 25.5 ABG Base Excess (-4.0 - 4.0 MMOL/L) -4.2 L 1.1 ABG Hematocrit (37.5 - 50.7 %) 40 41 ABG Hemoglobin (12.5 - 16.9 G/DL) 13.5 13.9 Sodium (134 - 147 mmol/L) 140 141 Potassium (3.4 - 5.0 mmol/L) 3.8 3.6 Chloride (100 - 108 mmol/L) 106 106 Ionized Calcium (1.12 - 1.32 MMOL/L) 1.15 1.15 Lactic Acid (0.9 - 1.7 mmol/l) 0.7 L 0.4 L Laboratory Tests 09/27 09/27 09/27 09/27 09/27 0733 0447 0210 0210 0127 Chemistry Sodium (134 - 147 mEq/L) 139 Potassium (3.4 - 5.0 mEq/L) 4.8 Chloride (100 - 108 mEq/L) 109 H Carbon Dioxide (21 - 33 mEq/l) 24 Anion Gap (0 - 20) 11 BUN (7 - 18 mg/dL) 9 Creatinine (0.6 - 1.3 mg/dL) 0.9 POC Creatinine (0.8 - 1.3 mg/dL) 1.0 Glomerular Filtr Rate (70 - 80) 86.3 H Glucose (70 - 110 mg/dL) 140 H POC Glucose (70 - 110 MG/DL) 141 H 137 H POC Glucose (mg/dL) (70 - 110 MG/DL) 118 H Calcium (8.0 - 10.5 mg/dL) 8.1 Ionized Calcium Tim (1.09 - 1.30 1.09 MMOL/L) Magnesium (1.80 - 2.40 mg/dL) 2.10 Total Bilirubin (0.0 - 1.0 mg/dL) 0.60 Direct Bilirubin (0.0 - 0.30 MG/DL) 0.30 Indirect Bilirubin (MG/DL) 0.30 AST (15 - 37 IUnit/L) 52 H ALT (30 - 65 IUnit/L) 28 L Total Alk Phosphatase (20 - 125 29 IUnit/L) Total Protein (6.4 - 8.2 g/dL) 5.1 L Albumin (3.4 - 5.0 g/dL) 3.60 09/26 09/26 09/26 09/26 09/26 2326 2042 1829 1715 1704 Chemistry POC Creatinine (0.8 - 1.3 mg/dL) 0.8 0.9 POC Glucose (70 - 110 MG/DL) 150 H 150 H 49 L POC Glucose (mg/dL) (70 - 110 MG/DL) 172 H 99 09/26 09/26 09/26 09/26 09/26 1635 1630 1522 1358 1336 Chemistry Sodium (134 - 147 mEq/L) 142 Potassium (3.4 - 5.0 mEq/L) 3.3 L Chloride (100 - 108 mEq/L) 109 H Carbon Dioxide (21 - 33 mEq/l) 24 Anion Gap (0 - 20) 12 BUN (7 - 18 mg/dL) 9 Creatinine (0.6 - 1.3 mg/dL) 0.9 POC Creatinine (0.8 - 1.3 mg/dL) 0.9 0.9 0.8 0. 9 Glomerular Filtr Rate (70 - 80) 86.3 H Glucose (70 - 110 mg/dL) 113 H POC Glucose (mg/dL) (70 - 110 MG/DL) 116 H 144 H 145 H 152 H Calcium (8.0 - 10.5 mg/dL) 8.5 Magnesium (1.80 - 2.40 mg/dL) 2.80 H 09/26 09/26 09/26 1259 1226 1109 Chemistry POC Creatinine (0.8 - 1.3 mg/dL) 0.9 0.8 0.9 POC Glucose (mg/dL) (70 - 110 MG/DL) 169 H 193 H 115 H Laboratory Tests 09/27 09/26 09/26 09/26 0525 1630 1524 1401 Coagulation INR (0.8 - 1.2) 1.4 H 1.6 H PTT (Ruby) (25.0 - 39.5 Seconds) 31.3 40.7 H PT Patient/Control Mix (9.3 - 12.9 SECONDS) 15. 6 H 18.1 H Activated Coag Time (74 - 137 SEC) 143 H 756 H 09/26 09/26 09/26 09/26 1338 1300 1228 1111 Coagulation Activated Coag Time (74 - 137 SEC) 817 H 883 H 733 H 149 H Laboratory Tests 09/27 0210 1630 Hematology WBC (4.5 - 11.0 x10 3/uL) 9.5 9.1 12.8 H RBC (4.00 - 5.60 x10 6/uL) 2.97 L 2.92 L 3.05 L Hgb (12.5 - 16.9 g/dL) 9.5 L 9.4 L 9.9 L Hct (37.5 - 50.7 %) 27.6 L 27.0 L 28.3 L MCV (81.0 - 99.0 fL) 92.9 92.5 92.8 MCH (27.0 - 33.0 pg) 32.0 32.2 32.5 MCHC (33.0 - 37.0 g/dL) 34.4 34.8 35.0 RDW (11.5 - 14.5 %) 14.0 13.8 13.8 Plt Count (150 - 400 x10 3/uL) 109 L 106 L 104 L MPV (7.0 - 9.0 fL) 11.4 H 11.1 H 10.8 H Neut % (Auto) (56.0 - 77.0 %) 82.8 H 86.6 H 86. 9 H Lymph % (Auto) (14.0 - 32.0 %) 7.7 L 4.4 L 7.5 L Isabella % (Auto) (4.8 - 9.0 %) 9.0 8.6 4.5 L Eos % (Auto) (0.3 - 3.7 %) 0.1 L 0.0 L 0.2 L Baso % (Auto) (0.0 - 2.0 %) 0.1 0.1 0.1 Neut # (Auto) (2.0 - 7.6 x10 3/uL) 7.88 H 7.83 H 11.11 H Lymph # (Auto) (1.0 - 3.8 x10 3/uL) 0.73 L 0.40 L 0.96 L Isabella # (Auto) (0.1 - 0.8 x10 3/uL) 0.86 H 0.78 0.58 Eos # (Auto) (0.0 - 0.2 x10 3/uL) 0.01 0.00 0.0 2 Baso # (Auto) (0.0 - 0.2 x10 3/uL) 0.01 0.01 0. 01 Abs Immat Gran (auto) (0.00 - 0.03 x10 3/uL) 0. 03 0.03 0.10 H Add Manual Diff NO NO NO Immature Gran % (0.0 - 2.0 %) 0.3 0.3 0.8 Nucleated RBC % (0 - 0 %) 0.0 0.0 0.0 Nucleated RBCs # (Man) (0.0 - 0.1 x10 3/uL) 0.0 0 0.00 0.00 Laboratory Tests 09/27/22 0525: [Embedded Image Not Available] 09/27/22 0210: [Embedded Image Not Available] 09/26/22 1630: [Embedded Image Not Available] Microbiology: 09/25 0839 NASAL: MSSA Surveillance Screen - ORD 09/25 838 NASAL: MRSA DNA Surveillance Screen - ORD 09/250 NASAL: MSSA Surveillance Screen - COM P 09/25 449 NASAL: MRSA DNA Surveillance Screen - COMP Radiology data Recent Impressions: RADIOLOGY - XR CHEST 1 V 09/26 1627 Report Impression - Status: SIGNED Entered: 09/26/2022 1740 IMPRESSION: 1. Small bilateral pleural effusions. 2. Moderate pulmonary edema versus infiltrates, pneumonia. 3. Moderate enlarged cardiac silhouette. Impression By: Travis Jacobsen M.D. RADIOLOGY - XR CHEST 1 V 09/27 0509 Report Impression - Status: SIGNED Entered: 09/27/2022 0747 IMPRESSION: 1. Linear bilateral lower chest pulmonary atelec tasis, or scarring. 2. Moderate enlarged cardiac silhouette. 3. Mild interstitial pulmonary edema versus infi ltrates. 4. Small bilateral pleural effusions. Impression By: Travis Jacobsen M.D. Free Text Obj Notes Free Text Obj Notes: General appearance: Elderly male in no acute dis tress, interactive and conversational HEENT: atraumatic, normocephalic, dry mucosal me mbranes Neck: full range of motion, supple/no meningismu s Cardiovascular: S1-S2 regular rate and rhythm Respiratory: symmetric expansion, no acute respi ratory distress Abdomen: soft, non-tender, no distention, no gua rding Genitourinary: king with clear urine Extremities: pedal pulses palpable, moves all, n o clubbing, no cyanosis, no edema Musculoskeletal: normal inspection, no muscle sp asm Neuro/RN ELIGIBILITY: Alert and oriented x3, CNII-XII gross ly intact, no motor deficits Skin: dry, intact and clean surgery dressing Diagnosis, Assessment Plan Problem list/A P: 1. CAD (coronary artery disease) 2. S/P CABG x 2 3. S/P AVR 4. Severe aortic stenosis Free text A P: 82-year-old male with history of HTN, HL, NIDDM, aortic stenosis and restless leg syndrome, who presented to outside hospital with chest pain and found to have non-STEMI. Cardiac catheter revealed severe multivessel coronary artery disease. Patient underwent A VR (25 INSPIRIS), CABG X2 (NAIR-LAD, SVG-OM), ALAA, EVH (RGSV) and posterior per icardiotomy today at 09/26/2022. EF was 30-35% and it slightly improved postop 40% on ANKUR. Crystalloid 1.8 L, albumin 150, urine output 600, Cell Saver 250. Surgery went well so patient was extubated and transferred to CVICU postop in a stable surgical condition. He was weaned off all vasopressors coming off pump and is currently on nitroglycerin and insulin drip. Neuro: Appears intact, multimodal pain control Respiratory: Sats well, wean O2, encourage I-S, ABG and CXR reviewed Cardiovascular: HD stable of f vasopressors, wean nitroglycerin drip, keep CTs to suction Renal: strict I/Os, monitor Cr and electrolytes, lactic acidosis, judicious resuscitation GI: bedside swallow then oral diet, bowel regime n, monitor LFTs, replete hypokalemia ID: reactive leukocytosis, trend WBC, co ntinue periop antibiotics per protocol Hem: acute postop anemia, co agulopathy and thrombocytopenia, monitor Hgb and CTs output, transfuse blood products as needed Endo: Blood glucose control with insulin gtt per protocol Misc: PT and OT consult, DVT and GI ppx with DAP T and PPI 09/27 Remains neuro intact, continue multimodal pain c ontrol Sats well, continue to wean O2, encourage I-S, A BG and CXR reviewed HD unstable back on vasopressors, attempt to wea n, check CVP, bolus as needed Cr stable, good urine output, lactic acidosis cl eared s/p resuscitation, repleted hypocalcemia Oral diet as tolerated, christopher l regimen, monitor gastric distention on x-ray, mild transaminitis No fevers or leukocytosis, given periop antibiot ics Hgb appears stable, no evidence of active bleed, monitor CTs output Blood glucose control with insulin drip, transit ion to sliding scale insulin Encourage PT/OT and out of bed as tolerated DVT and GI prophylaxis with DAPT and PPI Consultants: cardiovascular surgery Plan discussed with: patient , consultants, nurse, interdisc care team, pharmacy/ pharmacist Critical care time: Minutes: 39 Electronically Signed by Milton Mast MD on 09/19 08/11 at 1245 RPT #:[id number] END OF REPORT 2022-09-27 04:00:00-00:00 [id number] [place] [address] PATIENT NAME: MONICA BECK ADMIT DATE: 09/24/22 ACCOUNT NO: [id number] ROOM NO: [facility] [place] AGE: 82 REPORT TYPE: eELECTROCARDIOGRAM REPORT SEX: M ADMITTING PHYSICIAN:Kathya Maria MD ATTENDING PHYSICIAN:Kathya Maria MD Order: [id number] Test Reason : s/p cabg Test Date/Time Stamp: MonSep 27 2022 04:00:49 Blood Pressure : / mmHG Vent. Rate : 077 BPM Atrial Rate : 077 BPM P-R Int : 232 ms QRS Dur : 152 ms QT Int : 454 ms P-R-T Axes : 025 -50 203 degree s QTc Int : 513 ms Sinus rhythm with 1st degree AV block Left axis deviation Left bundle branch block Abnormal ECG When compared with ECG of 26-SEP-2022 16:40, No changes Confirmed by MD RAMSEY GERARD ([id number]) on 1:59:50 PM Referred By: Self Referred Confirmed by:ANA SANCHEZ MD Electronically Signed by Ana Ramsey MD on 0 09/27/22 at 1359 PATIENT NAME: MONICA BECK ACCOUNT #: [id number] 2022-09-26 17:18:00-00:00 [id number] [place] [address] PATIENT NAME: MONICA BECK ADMIT DATE: 09/24/22 ACCOUNT NO: [id number] ROOM NO: 220 AGE: 82 REPORT TYPE: OPERATIVE REPORT SEX: M ADMITTING PHYSICIAN:Kathya Maria MD ATTENDING PHYSICIAN:Kathya Maria MD OPERATION DATE: 09/26/2022 PREOPERATIVE DIAGNOSES: 1. Aortic stenosis. 2. Coronary artery disease. POSTOPERATIVE DIAGNOSES: 1. Aortic stenosis. 2. Coronary artery disease. PROCEDURES: 1. Aortic valve replacement (25 Inspiris valve). 2. Coronary artery bypass graft surgery x2 (NAIR to LAD, saphenous vein to marginal). 3. Amputation of left atrial appendage. 4. Endoscopic vein harvest (right greater saphen ous vein). 5. Posterior pericardiotomy. SURGEON: Kathya Maria M.D. COMMUNITY PLANNING TECHNICIAN: Jose Guadalupe Chacon. ANESTHESIOLOGIST: Dr. Butler. ANESTHESIA: General endotracheal anesthesia. ESTIMATED BLOOD LOSS: 100 mL INDICATIONS: Mr. Beck is an 82-year-old gentl eman with severe aortic stenosis and tight left main stem disease. After due preop counseling, he was brought to the operating room today for surgical revascularization. FINDINGS: 1. Vein was harvested from the right leg using e ndoscopic vein harvest technique. Vein was of satisfactory quality, amira suring about 4 mm in size. 2. Osteoporotic sternum. 3. Good quality NAIR measuring 2 mm in size with excellent flow. 4. Normal pericardium without any intrapericardi al adhesions, minimal intrapericardial fluid. 5. Patchy calcification of the ascending aorta. 6. LAD 2 mm, good quality artery. 7. Marginal 2 mm, good quality artery. 8. Heavily calcified tricuspid aortic valve with calcification extending onto PATIENT NAME: MONICA BECK ACCOUNT #: [id number] the aortic annulus. 9. Following decalcification, the annulus was si zed to 25 Inspiris valve. 10. Left atrial appendage was amputated half a cm from the base. This was then repaired with two layers of running pledgeted 4- 0 Prolene suture. 11. Posterior pericardiotomy was performed by ex cising 2 cm x 2 cm of the posterior pericardium. 12. ANKUR at the end of the case did not s how any evidence of paravalvular leak. DESCRIPTION OF PROCEDURE: Mr. Beck was identi fied in the preoperative holding area and brought to the operating room a nd placed supine on the operating table. After induction of general endo tracheal anesthesia King catheter, radial arterial line and antibiotics w ere placed. The patient's anterior torso and both legs were prepped and dr aped in standard sterile fashion. Vein was harvested from the right leg u sing endoscopic vein harvest technique. Following harvest ing, subcutaneous tissue was closed with 2-0 Vicryl and skin with 4-0 Vicryl. Simultaneously , median sternotomy was performed. The left internal mammary artery was harvested. The patient was heparinized. Pericardium was opened longitudinally and perica rdial well was created. Cardiopulmonary bypass was i nstituted using ascending aorta and 3-stage cannula in the right atrium. The patient was cooled to 3 4 degrees centigrade. LV vent was placed via the right sup erior pulmonary vein. A cross-clamp was applied and the heart was arrested with 1.5 antegrade and re trograde cold blood cardioplegia. Cardioplegia was repeated at inter papa of 10 minutes all throughout duration of crossclamp. We be destiney by exploring the OM. This was good quality artery, measuring 2 mm in size. Arteriotomy was performed with a [place] blade and extended with Will scissors. A segmen t of previously harvested reverse saphenous vein was anastomosed i n end-to-side manner using running 7-0 Prolene suture. Next, the left atrial appendage was amputated half a cm from the base. This was then repaired with two layers of running pledgeted 4-0 Prolene suture. Next, the LAD was explored. This was a good quality artery measuring 2 mm in size. Arteriotomy was performe d with a [place] blade and extended with Will scissors. NAIR was a nastomosed in end-to-side manner using running 8-0 Prolene suture. NAIR pedicle was tac ked to epicardium using two interrupted 6-0 Prolene suture. A slit w as made in the pericardium on the left aspect, so as to accommodate the NAIR. N ext, 2 cm x 2 cm posterior pericardium was excised. Next, attention was shifted to the aortic valve. A transverse aortotomy was performed 0.5 cm distal to sinotub ular junction. This was extended in hockey stick fashion onto the noncor onary sinus. Three pledgeted 4-0 Prolene sutures were placed on the superior and inferior lip of the aortotomy so as to assist with exposure of the aortic valve, aortic cusps were excised, careful decalcification of the aortic a nnulus was performed, the annulus was sized to 25 Inspiris valve. LV was t hen irrigated with a liter of cold saline. Next, circumferential 3-0 Ethibond sutures were placed in the aortic annulus, size 25 Inspiris valve was then brought into surgical field. The sutures sequentially passed through the sewing ring. The valve was lowered down to the annulus. After confirming proper sea ting, the sutures were tied. Rewarming was commenced at this stage. The aorto lucie was closed in 2 layers using running 4-0 Prolene suture. Next, the vein graft to OM was brought along the left side of the heart a nd sized. Aortotomy was performed on the left aspect of the aorta using 4 mm punch. Proximal anastomo sis of the marginal graft was then performed using running 6-0 Prolene suture. Careful de-aeration was performed and the cross-clamp was releas ed. One ventricular wire was placed. A 28-Faroese chest tube was ashley nori in the mediastinum and 28-angled chest tube was placed in the left pleural space. Once the patie nt was at temperature, PATIENT NAME: MONICA BECK ACCOUNT #: [id number] de-airing maneuvers were rep eated and the patient was weaned off cardiopulmonary bypass with minimal inotropic support. Heparin w as reversed with protamine. Decannulation was uneventful . After confirming hemostasis, the chest was closed in layers using stainless st eel wires for the sternum, #1 Vicryl for the fascia, 2-0 Vicryl for subcutaneous tissue and 4-0 Vicryl for the skin. The patient was extubated in the operating room and moved to PAC U in stable condition. Dictated By: Kathya Maria MD Date Dictated: 09/26/2022 17:18:27 Date Transcribed: 09/26/2022 21:18:02 AC/PAP Receipt ID: [id number] Authenticated by Kathy Maria MD On 023 12:14:36 PM at 1214 PATIENT NAME: MONICA BECK ACCOUNT #: [id number] 2022-09-26 17:10:00-00:00 [facility] ([facility]) Brief Op Note REPORT#:[id number] REPORT STATUS: Signed DATE:09/26/22 TIME: 171 PATIENT: MONICA BECK UNIT #: [id number] ROOM/BED: [place] [address] : 42 AGE: 82 SEX: M ATTEND: Ab romain Maria MD ADM AUTHOR: Kathya Maria MD * ALL edits or amendments must be made on the [employer]/computer document * Op/Inv Proc Note - Brief Pre-procedure diagnosis: CAD Post-procedure diagnosis: same as pre procedure dx Procedures performed: AVR (25 INSPIRIS) CABG X 2 (NAIR-LAD, SVG-OM) ALAA EVH (RGSV) POSTERIOR PERICARDIOTOMY Primary Surgeon: CARSON Inpatient Coder(s): PALAK Findings: HEAVILY CALCIFIED TRCUSPID AORTIC VALVE Complications: none Estimated blood loss in ml's: 100 CC Specimens removed/altered: AORTIC CUSP at 1713 RPT #:[id number] END OF REPORT 2022-09-26 16:57:00-00:00 [facility] ([facility]) Critical Care Consult Note REPORT#:[id number] REPORT STATUS: Signed DATE:09/26/22 TIME: 1656 PATIENT: MONICA BEKC UNIT #: [id number] ROOM/BED: [place] [id number] : 42 AGE: 82 SEX: M ATTEND: Nicolasa Maria MD ADM AUTHOR: Milton Mast MD * ALL edits or amendments must be made on the el [employer]/computer document * History of Present Illness HPI Requesting clinician: Dr. Maria Reason for consult: postop management Chief complaint: CABG PCP: PCP: Kathya Maria MD HPI: 82-year-old male with history of HTN, HL, NIDDM, aortic stenosis and restless leg syndrome, who presented to outside hospital with chest pain and found to have non-STEMI. Cardiac catheter revealed severe multivessel coronary artery disease. Patient underwent A VR (25 INSPIRIS), CABG X2 (NAIR-LAD, SVG-OM), ALAA, EVH (RGSV) and posterior per icardiotomy today at 09/26/2022. EF was 30-35% and it slightly improved postop 40% on ANKUR. Crystalloid 1.8 L, albumin 150, urine output 600, Cell Saver 250. Surgery went well so patient was extubated and transferred to CVICU postop in a stable surgical condition. He was weaned off all vasopressors coming off pump and is currently on nitroglycerin and insulin drip. History - Adult longitudinal Additional medical history: Hypertension Hyperlipidemia Type 2 diabetes mellitus Restless leg syndrome Aortic stenosis Additional surgical history: Cholecystectomy Varicose veins Additional family history: Reviewed and noncontributory Alcohol use: Denies EtOH use Drug use: Denies recreational drugs Smoking status for patients 13 years old or olde r: Never Smoker Allergies: Coded Allergies: No Known Allergies (09/24/22) Objective Physical Exam VS/I O: Last Documented: Result Date Time Pulse Ox 96 09/26 0753 B/P 139/64 09/263 B/P Mean 0.0 09/26 0753 O2 Delivery Room air 09/26 752 Temp 96.8 09/26 075 Pulse 67 09/26 0753 Resp 20 05/08 0753 24 hour I O ending at 0700: 05/08 0700 05/07 1900 Intake Total 657.20 849.00 Output Total 975 Balance -317.80 849.00 Intake, IV 211.20 249.00 Intake, Oral 446 600 Number 1 Bowel Movements Output, Urine 975 Patient 74.3 kg Weight Weight Standing scale Measurement Method Patient Weight and BMI Weight (kg): 74.300 BMI: 26.4 Medications: Active Meds + DC'd Last 24 Hrs Ipratropium [place] (ATROVENT) 500 MCG RTQ2H PRN PRN INH Cyanocobalamin (Vitamin B-12 500 mcg tab) 500 MC G DAILY PO Ferrous Sulfate (FERROUS SULFATE) 325 MG DAILY P O Bisacodyl (DULCOLAX) 10 MG ONCE PRN RECTAL Magnesium Hydroxide (MILK OF MAGNESIA) 30 ML ONC E PRN PO Atorvastatin Calcium (LIPITOR) 40 MG 2100 PO Clopidogrel Bisulfate (Plavix) 75 MG DAILY PO Polyethylene Glycol (MIRALAX) 17 GM DAILY PO Pantoprazole (PROTONIX) 40 MG DAILY@0600 PO Aspirin (ASPIRIN) 81 MG DAILY PO Amiodarone HCl (CORDARONE) 200 MG TID PO Docusate Sodium (COLACE) 100 MG BID PO Gabapentin (NEURONTIN) 200 MG BID PO Metoprolol Tartrate (LOPRESSOR) 12.5 MG Q12HR PO Sennosides (Senna Lax 8.6 MG TABLET) 17.2 MG BED TIME PO Glycopyrrolate (GLYCOPYRROLATE) 0 .STK-MED ONE . ROUTE (DC) Neostigmine Methylsulfate (PROSTIGMIN) 0 .STK-ME D ONE .ROUTE (DC) Ipratropium [place] (ATROVENT) 500 MCG RTQ4H INH Albumin Human (ALBUMINAR-25%) 100 ML .STK-MED ON E IV (DC) Lidocaine HCl (XYLOCAINE) 0 .STK-MED ONE .ROUTE (DC) Acetaminophen (TYLENOL) 650 MG Q4H PRN PRN PO Acetaminophen (TYLENOL) 650 MG Q4H PRN PRN RECTA L Albumin Human (ALBUMINAR 25%) 25 GM ASDIR PRN IV Calcium Chloride (CALCIUM CHLORIDE) 1 GM ASDIR P RN IV Cefazolin Sodium (KEFZOL OR ANCEF) 3 GM ONCE ONE IV Sodium Chloride (SODIUM CHLORIDE 0.9%) 250 ML Chlorhexidine Gluconate (PERIDEX) 15 ML Q2H MM ( CKD) Dextrose/Water (DEXTROSE 10% IN WATER) 125 ML DIR PRN IV (CKD) Dextrose/Water (DEXTROSE 10% IN WATER) 250 ML DIR PRN IV (CKD) Epinephrine (ADRENALIN CHLORIDE) 4 MG ASDIR IV Dextrose/Water (DEXTROSE 5% WATER) 246 ML Glucagon (GLUCAGON) 1 MG ASDIR PRN IM Insulin Human Regular (HumuLIN R) 100 UNIT ASDIR IV (CKD) Sodium Chloride (SODIUM CHLORIDE 0.9%) 99 ML Magnesium Sulfate (MAGNESIUM SULFATE 4GM/SWFI 10 0ML) 100 ML ASDIR PRN IV Magnesium Sulfate (MAGNESIUM SULFATE 2GM/SWFI 50 ML) 50 ML ASDIR PRN IV Magnesium Sulfate/Dextrose (MAGNESIUM SULFATE 1G M/D5W 100ML) 100 ML ASDIR PRN IV Nitroglycerin/Dextrose (NITROGLYCERIN 50,000MCG/ D5W 250ML) 250 ML ASDIR IV Norepinephrine Bitartrate (NOREPINEPHRINE 8 MG/N S 250 ML) 250 ML TITRATE IV Ondansetron HCl (ZOFRAN) 4 MG Q6H PRN PRN IV Potassium Chloride (KCL 20MEQ/SWFI 100ML) 100 ML ASDIR PRN IV Sodium Bicarbonate (SODIUM BICARBONATE) 50 MEQ A SDIR PRN IV Sodium Chloride (SODIUM CHLORIDE 0.9%) 1,000 ML .Q20H IV Sodium Chloride (SODIUM CHLORIDE 0.9%) 250 ML Q2 4H IV Albumin Human (ALBUMINAR-25%) 50 ML .STK-MED ONE IV (DC) Rocuronium [place] (ZEMURON) 0 .STK-MED ONE IV ( DC) Midazolam HCl (VERSED) 0 .STK-MED ONE .ROUTE (DC ) Cefazolin Sodium (KEFZOL OR ANCEF) 0 .STK-MED ON E .ROUTE (DC) Vancomycin HCl (VANCOMYCIN HCL) 0 .STK-MED ONE . ROUTE (DC) Etomidate (AMIDATE) 0 .STK-MED ONE IV (DC) Albumin Human (ALBUMINAR-25%) 100 ML .STK-MED ON E IV (DC) Heparin Sodium (HEPARIN SODIUM) 0 .STK-MED ONE . ROUTE (DC) Sodium Chloride (SODIUM CHLORIDE 0.9%) 100 ML .S TK-MED ONE IV (DC) Lidocaine HCl (XYLOCAINE IV) 0 .STK-MED ONE IV ( DC) Magnesium Sulfate (MAGNESIUM SULFATE) 0 .STK-MED ONE IV (DC) Phenylephrine HCl (JACOBO-SYNEPHRINE 10MG/ML AMP) 0 .STK-MED ONE .ROUTE (DC ) Sodium Bicarbonate (SODIUM BICARBONATE) 0 .STK-M ED ONE IV (DC) Fentanyl Citrate (SUBLIMAZE) 0 .STK-MED ONE IV ( DC) Fentanyl Citrate (SUBLIMAZE) 0 .STK-MED ONE IV ( DC) Papaverine HCl (PAPAVERINE HCL) 0 .STK-MED ONE I V (DC) Sodium Chloride (SODIUM CHLORIDE 0.9%) 500 ML .S TK-MED ONE IV (DC) Epinephrine HCl (EPINEPHrine 4 mg/D5W 250 mL) 25 0 ML .STK-MED ONE IV (DC ) Insulin Human Regular (HumuLIN R 100 UNITS/NS 10 0ML) 100 ML .STK-MED ONE IV (DC) Norepinephrine Bitartrate (NOREPINEPHRINE 8 MG/N S 250 ML) 250 ML .STK-MED ONE IV (DC) Aminocaproic Acid (AMICAR) 0 .STK-MED ONE IV (DC ) Calcium Chloride (CALCIUM CHLORIDE) 0 .STK-MED O NE IV (DC) Heparin Sodium (HEPARIN SODIUM) 0 .STK-MED ONE . ROUTE (DC) Nitroglycerin/Dextrose (NITROGLYCERIN 50,000MCG/ D5W 250ML) 250 ML .STK-MED ONE IV (DC) Protamine Sulfate (PROTAMINE SULFATE) 0 .STK-MED ONE IV (DC) Magnesium Sulfate (MAGNESIUM SULFATE) 0 .STK-MED ONE .ROUTE (DC) Ropivacaine (NAROPIN 0.5% 150 MG/30mL) 0 .STK-ME D ONE .ROUTE (DC) Dexamethasone Sodium Phosphate (DECADRON) 0 .STK -MED ONE .ROUTE (DC) Lidocaine HCl (XYLOCAINE) 0 .STK-MED ONE .ROUTE (DC) Ondansetron HCl (ZOFRAN) 0 .STK-MED ONE .ROUTE ( DC) Rocuronium [place] (ZEMURON) 0 .STK-MED ONE IV ( DC) Succinylcholine Chloride (QUELICIN FLIPTOP) 0 .S TK-MED ONE IV (DC) Albumin Human (ALBUMINAR-25%) 100 ML .STK-MED ON E IV (DC) Heparin Sodium (HEPARIN SODIUM) 0 .STK-MED ONE . ROUTE (DC) Lidocaine HCl (XYLOCAINE IV) 0 .STK-MED ONE IV ( DC) Sodium Bicarbonate (SODIUM BICARBONATE) 0 .STK-M ED ONE IV (DC) Sodium Chloride (SODIUM CHLORIDE 0.9%) 100 ML .S TK-MED ONE IV (DC) Magnesium Sulfate (MAGNESIUM SULFATE) 0 .STK-MED ONE IV (DC) Phenylephrine HCl (JACOBO-SYNEPHRINE 10MG/ML AMP) 0 .STK-MED ONE .ROUTE (DC ) Cefazolin Sodium (KEFZOL OR ANCEF) 2 GM PREOP 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 IV (DC) Metoprolol Tartrate (LOPRESSOR) 6.25 MG ONCE ONE PO (DC) Vancomycin HCl (VANCOMYCIN HCL) 1,000 MG PREOP O NCALL IV (DC) Sodium Chloride (SODIUM CHLORIDE 0.9%) 250 ML Verapamil HCl (ISOPTIN) 16.6 MG .Q24H ONE IV (DC ) Heparin Sodium (Porcine) (HEPARIN SODIUM) 1,660 UNIT Sodium Bicarbonate (SODIUM BICARBONATE) 0.7 ML Nitroglycerin/Dextrose (NITROGLYCERIN 50MG/D5W 250ML) 8.3 MG Lactated Ringer's (LACTATED RINGERS) 949.5 ML Mupirocin (BACTROBAN 2% 22 GM OINTMENT) 1 APPLIC BID NASAL (DC) Acetaminophen (TYLENOL EXTRA STRENGTH) 1,000 MG PREOP ONCALL PO (DC) Gabapentin (NEURONTIN) 200 MG PREOP ONCALL PO (D C) Sodium Chloride (SODIUM CHLORIDE) 20 ML ASDIR IV (DC) Aspirin (ASPIRIN) 81 MG DAILY PO (DC) Insulin Human Lispro (HUMALOG) 0 AC HS SUBQ (DC) Acetaminophen (TYLENOL) 650 MG Q4H PRN PRN PO (D C) Al Hydrox/Mg Hydrox/Simethicone (MYLANTA) 30 ML Q4H PRN PRN PO (DC) Dextrose/Water (DEXTROSE 10% IN WATER) 125 ML A SDIR PRN IV (DC) Dextrose/Water (DEXTROSE 10% IN WATER) 250 ML DIR PRN IV (DC) Glucagon (GLUCAGON) 1 MG ASDIR PRN IM (DC) Hydralazine HCl (APRESOLINE) 10 MG Q6H PRN PRN I V (DC) Hydrocodone Bitart/Acetaminophen (NORCO 5/325) 1 TAB Q6H PRN PRN PO (DC) Magnesium Hydroxide (MILK OF MAGNESIA) 15 ML Q6H PRN PRN PO (DC) Morphine Sulfate (morphine SULFATE) 2 MG Q1H PRN PRN IV (DC) Ondansetron HCl (ZOFRAN) 4 MG Q4H PRN PRN IV (DC ) Temazepam (RESTORIL) 15 MG BEDTIME PRN PRN PO (D C) Heparin Sodium (HEPARIN 5000 UNITS/ML) 0 ASDIR P RN IV (DC) Heparin Sodium (Porcine) (HEPARIN 25,000 UNITS/ 1/2NS 500ML) 500 ML ASDIR IV (DC) Results Findings/Data: Laboratory Tests 09/26/22 1630: [Embedded Image Not Available] 09/26/22 0300: [Embedded Image Not Available] Laboratory Tests 09/26 09/26 09/26 09/26 1715 1635 1522 1358 Blood Gas Puncture Site Art Line O2 Saturation (90 - 100 %) 94.7 97.4 95.9 100.0 ABG pH (7.35 - 7.45) 7.334 L 7.344 L 7.278 *L 7 .400 ABG pCO2 (35.0 - 45 mmHg) 43.6 43.6 52.5 *H 40. 0 ABG pO2 (80 - 100.0 mmHg) 78.1 L 100.5 H 92.6 3 94.9 *H ABG HCO3 (22.0 - 26.0 MMOL/L) 23.3 23.7 24.6 24 .8 ABG Total CO2 24.6 25.0 26.2 26.0 ABG Base Excess (-4.0 - 4.0 MMOL/L) -2.7 -2.0 - 2.4 0.0 ABG Hematocrit (37.5 - 50.7 %) 25 L 26 L 26 L 2 9 L ABG Hemoglobin (12.5 - 16.9 G/DL) 8.7 L 8.7 L 8 .8 L 9.7 L Sodium (134 - 147 mmol/L) 141 139 140 139 Potassium (3.4 - 5.0 mmol/L) 3.4 3.3 L 3.3 L 4. 3 Chloride (100 - 108 mmol/L) 107 108 108 105 Ionized Calcium (1.12 - 1.32 MMOL/L) 1.21 1.14 1.31 1.04 L Lactic Acid (0.9 - 1.7 mmol/l) 2.5 H 1.4 0.9 Temperature (F) 98 O2 Delivery Device HFNC Cannula 09/26 09/26 09/26 09/26 1336 1259 1226 1109 Blood Gas O2 Saturation (90 - 100 %) 100.0 100.0 96.2 10 0.0 ABG pH (7.35 - 7.45) 7.446 7.422 7.185 *L 7.463 H ABG pCO2 (35.0 - 45 mmHg) 34.0 L 39.8 67.2 *H 3 4.1 L ABG pO2 (80 - 100.0 mmHg) 417.0 *H 525.6 *H 10 6.2 H 563.7 *H ABG HCO3 (22.0 - 26.0 MMOL/L) 23.4 25.9 25.4 24 .4 ABG Total CO2 24.5 27.1 27.4 25.5 ABG Base Excess (-4.0 - 4.0 MMOL/L) -0.3 1.4 -4 .2 L 1.1 ABG Hematocrit (37.5 - 50.7 %) 30 L 29 L 40 41 ABG Hemoglobin (12.5 - 16.9 G/DL) 10.0 L 9.8 L 13.5 13.9 Sodium (134 - 147 mmol/L) 139 139 140 141 Potassium (3.4 - 5.0 mmol/L) 4.0 5.1 H 3.8 3.6 Chloride (100 - 108 mmol/L) 104 103 106 106 Ionized Calcium (1.12 - 1.32 MMOL/L) 1.00 L 0.9 9 L 1.15 1.15 Lactic Acid (0.9 - 1.7 mmol/l) 0.9 0.5 L 0.7 L 0.4 L Laboratory Tests 09/26 09/26 09/26 09/26 09/26 1715 1704 1635 1630 1522 Chemistry Sodium (134 - 147 mEq/L) 142 Potassium (3.4 - 5.0 mEq/L) 3.3 L Chloride (100 - 108 mEq/L) 109 H Carbon Dioxide (21 - 33 mEq/l) 24 Anion Gap (0 - 20) 12 BUN (7 - 18 mg/dL) 9 Creatinine (0.6 - 1.3 mg/dL) 0.9 POC Creatinine (0.8 - 1.3 mg/dL) 0.9 0.9 0.9 Glomerular Filtr Rate (70 - 80) 86.3 H Glucose (70 - 110 mg/dL) 113 H POC Glucose (70 - 110 MG/DL) 49 L POC Glucose (mg/dL) (70 - 110 MG/DL) 99 116 H 144 H Calcium (8.0 - 10.5 mg/dL) 8.5 Magnesium (1.80 - 2.40 mg/dL) 2.80 H 09/26 09/26 09/26 09/26 09/26 1358 1336 1259 1226 1109 Chemistry POC Creatinine (0.8 - 1.3 mg/dL) 0.8 0.9 0.9 0. 8 0.9 POC Glucose (mg/dL) (70 - 110 MG/DL) 145 H 152 H 169 H 193 H 115 H 09/26 09/26 09/26 09/26 0749 0300 0300 0300 Chemistry Sodium (134 - 147 mEq/L) 139 Potassium (3.4 - 5.0 mEq/L) 3.5 Chloride (100 - 108 mEq/L) 105 Carbon Dioxide (21 - 33 mEq/l) 24 Anion Gap (0 - 20) 14 BUN (7 - 18 mg/dL) 7 Creatinine (0.6 - 1.3 mg/dL) 0.9 Glomerular Filtr Rate (70 - 80) 86.3 H Glucose (70 - 110 mg/dL) 106 POC Glucose (70 - 110 MG/DL) 202 H Hemoglobin A1c (4.8 - 6.0 %A1C) 6.8 H Calcium (8.0 - 10.5 mg/dL) 8.9 Total Bilirubin (0.0 - 1.0 mg/dL) 0.80 AST (15 - 37 IUnit/L) 26 ALT (30 - 65 IUnit/L) 25 L Total Alk Phosphatase (20 - 125 IUnit/L) 48 B-Natriuretic Peptide (0 - 100 PG/ML) 331.0 H Total Protein (6.4 - 8.2 g/dL) 6.2 L Albumin (3.4 - 5.0 g/dL) 3.70 Triglycerides (40 - 150 mg/dL) 91 Cholesterol (<200 mg/dL) 99 LDL Cholesterol Measurd (0 - 100 mg/dL) 61.0 HDL Cholesterol (32 - 72 mg/dL) 24.8 L Cholesterol/HDL Ratio (3.43 - 4.97 RATIO) 3.99 09/25 2107 Chemistry POC Glucose (70 - 110 MG/DL) 158 H Laboratory Tests 09/26 09/26 09/26 09/26 1630 1524 1401 1338 Coagulation INR (0.8 - 1.2) 1.6 H PTT ([place]) (25.0 - 39.5 Seconds) 40.7 H PT Patient/Control Mix (9.3 - 12.9 SECONDS) 18. 1 H Activated Coag Time (74 - 137 SEC) 143 H 756 H 817 H 09/26 09/26 09/26 09/26 1300 1228 1111 0300 Coagulation INR (0.8 - 1.2) 1.2 PTT ([place]) (25.0 - 39.5 Seconds) 48.1 H PT Patient/Control Mix (9.3 - 12.9 SECONDS) 13. 8 H Activated Coag Time (74 - 137 SEC) 883 H 733 H 149 H 09/25 2040 Coagulation PTT ([place]) (25.0 - 39.5 Seconds) 73.6 H Laboratory Tests 09/26 09/26 1630 0300 Hematology WBC (4.5 - 11.0 x10 3/uL) 12.8 H 5.7 RBC (4.00 - 5.60 x10 6/uL) 3.05 L 4.68 Hgb (12.5 - 16.9 g/dL) 9.9 L 14.8 Hct (37.5 - 50.7 %) 28.3 L 43.3 MCV (81.0 - 99.0 fL) 92.8 92.5 MCH (27.0 - 33.0 pg) 32.5 31.6 MCHC (33.0 - 37.0 g/dL) 35.0 34.2 RDW (11.5 - 14.5 %) 13.8 13.9 Plt Count (150 - 400 x10 3/uL) 104 L 164 MPV (7.0 - 9.0 fL) 10.8 H 12.2 H Neut % (Auto) (56.0 - 77.0 %) 86.9 H 64.4 Lymph % (Auto) (14.0 - 32.0 %) 7.5 L 24.9 Isabella % (Auto) (4.8 - 9.0 %) 4.5 L 6.9 Eos % (Auto) (0.3 - 3.7 %) 0.2 L 3.0 Baso % (Auto) (0.0 - 2.0 %) 0.1 0.4 Neut # (Auto) (2.0 - 7.6 x10 3/uL) 11.11 H 3.65 Lymph # (Auto) (1.0 - 3.8 x10 3/uL) 0.96 L 1.41 Isabella # (Auto) (0.1 - 0.8 x10 3/uL) 0.58 0.39 Eos # (Auto) (0.0 - 0.2 x10 3/uL) 0.02 0.17 Baso # (Auto) (0.0 - 0.2 x10 3/uL) 0.01 0.02 Abs Immat Gran (auto) (0.00 - 0.03 x10 3/uL) 0. 10 H 0.02 Add Manual Diff NO NO Immature Gran % (0.0 - 2.0 %) 0.8 0.4 Nucleated RBC % (0 - 0 %) 0.0 0.0 Nucleated RBCs # (Man) (0.0 - 0.1 x10 3/uL) 0.0 0 0.00 Microbiology: 09/25 838 NASAL: MSSA Surveillance Screen - ORD 09/25 838 NASAL: MRSA DNA Surveillance Screen - ORD 09/25 449 NASAL: MSSA Surveillance Screen - COM P 09/25 449 NASAL: MRSA DNA Surveillance Screen - COMP Free Text Obj Notes Free Text Obj Notes: General appearance: Elderly pale looking male in no acute distress, interactive Head/Eyes: atraumatic, normocephalic, dry mucosa l membranes Neck: full range of motion, supple/no meningismu s Cardiovascular: S1-S2 regular rate and rhythm Respiratory: symmetric expansion, no acute respi ratory distress Abdomen: soft, non-tender, no distention, no gua rding Genitourinary: king with clear urine Extremities: pedal pulses, moves all, no clubbin g, no cyanosis, no edema Vascular pulse assessment: palpated: R posterior tibialis, L posterior tibi tessa, R dorsalis pedis, L dorsalis pedis Musculoskeletal: normal inspection, no muscle sp asm Neuro/RN ELIGIBILITY: alert and oriented, CNII-XII grossly intact, no motor deficits Skin: dry, intact and clean surgery dressing Diagnosis, Assessment Plan Diagnosis, Assessment Plan Problem list/A P: 1. CAD (coronary artery disease) 2. S/P CABG x 2 3. S/P AVR 4. Severe aortic stenosis Consultants: cardiovascular surgery Plan discussed with: patient, consultants, nurse , interdisc care team Critical care time: Minutes: 45 Free text DxA P: 82-year-old male with history of HTN, HL, NIDDM, aortic stenosis and restless leg syndrome, who presented to outside hospital with chest pain and found to have non-STEMI. Cardiac catheter revealed severe multivessel coronary artery disease. Patient underwent A VR (25 INSPIRIS), CABG X2 (NAIR-LAD, SVG-OM), ALAA, EVH (RGSV) and posterior per icardiotomy today at 09/26/2022. EF was 30-35% and it slightly improved postop 40% on ANKUR. Crystalloid 1.8 L, albumin 150, urine output 600, Cell Saver 250. Surgery went well so patient was extubated and transferred to CVICU postop in a stable surgical condition. He was weaned off all vasopressors coming off pump and is currently on nitroglycerin and insulin drip. Neuro: Appears intact, multimodal pain control Respiratory: Sats well, wean O2, encourage I-S, ABG and CXR reviewed Cardiovascular: HD stable of f vasopressors, wean nitroglycerin drip, keep CTs to suction Renal: strict I/Os, monitor Cr and electrolytes, lactic acidosis, judicious resuscitation GI: bedside swallow then oral diet, bowel regime n, monitor LFTs, replete hypokalemia ID: reactive leukocytosis, trend WBC, co ntinue periop antibiotics per protocol Hem: acute postop anemia, co agulopathy and thrombocytopenia, monitor Hgb and CTs output, transfuse blood products as needed Endo: Blood glucose control with insulin gtt per protocol Misc: PT and OT consult, DVT and GI ppx with DAP T and PPI Electronically Signed by Milton Mast MD on 09/19 08/11 at 1245 RPT #:[id number] END OF REPORT 2022-09-26 16:40:00-00:00 [id number] [place] [id number] PATIENT NAME: MONICA BECK ADMIT DATE: 0 09/24/22 ACCOUNT NO: [id number] [place]OM NO: [facility] [place] AGE: 82 REPORT TYPE: eELECTROCARDIOGRAM REPORT SEX: M ADMITTING PHYSICIAN:Kathya Maria MD ATTENDING PHYSICIAN:Kathya Maria MD Order: [id number] Test Reason : sp cabg Test Date/Time Stamp: MonSep 26 2022 16:40:28 Blood Pressure : / mmHG Vent. Rate : 074 BPM Atrial Rate : 074 BPM P-R Int : 230 ms QRS Dur : 134 ms QT Int : 424 ms P-R-T Axes : 042 -60 123 degree s QTc Int : 470 ms Sinus rhythm with sinus arrhythmia with 1st degr ee AV block Left axis deviation Nonspecific intraventricular block Minimal voltage criteria for LVH, may be normal variant ( [place] product ) Possible Lateral infarct , age undetermined Inferior infarct , age undetermined Abnormal ECG No previous ECGs available Confirmed by BLAINE GIRODANO MD ([id number]) on 3 8:36:46 AM Referred By: Self Referred Confirmed by:BLAINE SRINIVASAN MD Electronically Signed by Blaine Giordano MD on at 0836 PATIENT NAME: MONICA BECK ACCOUNT #: [id number] 2022-09-26 12:42:00-00:00 [facility] ([facility]) Hospitalist Progress Note REPORT#:[id number] REPORT STATUS: Signed DATE:09/26/22 TIME: 1242 PATIENT: MONICA BECK UNIT #: [id number] ROOM/BED: [place] [id number] : 42 AGE: 82 SEX: M ATTEND: Nicolasa Maria MD ADM AUTHOR: Chiki Fernandez MD * ALL edits or amendments must be made on the el [employer]/computer document * Subjective Chief complaint: IN OR FOR CABG/AVR NOW HPI: 82-year-old male with past m edical history of hypertension, hyperlipidemia, type 2 diabetes mellitus, restless leg syndro me, and aortic stenosis is transferred here from [facility], where he presen tamra today with complaint of chest pain for the past few weeks. Patie nt complained of substernal chest pain associated with diaphoresis. He was found to hav e elevated troponin I and cardiology was consulted. Patient had left heart catheterization, the results of which are not available at this time. He was then transferred to [facility] for evaluation by cardiothoracic surge ry. Objective General VS/I O: Vital Signs: Date Time Temp Pulse Resp B/P B/P Pulse O2 O2 F low FiO2 Mean Ox Delivery Rate 09/26 0753 96.8 67 20 139/64 0.0 96 Room air / 0413 13 138/65 0.0 05/08 0412 97.7 63 13 135/65 0.0 94 Room air 05/08 0114 97.5 67 14 124/63 0.0 96 Room air 05/ 2038 96 Room air / 1932 98.4 77 13 161/76 104.3 94 Room air 05/07 1619 97.9 74 14 135/61 85 98 24 hour I O ending at 0700: /08 0700 05/07 1900 Intake Total 657.20 849.00 Output Total 975 Balance -317.80 849.00 Intake, IV 211.20 249.00 Intake, Oral 446 600 Number 1 Bowel Movements Output, Urine 975 Patient 164 lb Weight Weight Standing scale Measurement Method PATIENT WEIGHT: Weight (lb): 163 Weight (oz): 12.86 Weight (kg): 74.300 Medications: Active Meds + DC'd Last 24 Hrs Rocuronium [place] (ZEMURON) 0 .STK-MED ONE IV ( DC) Midazolam HCl (VERSED) 0 .STK-MED ONE .ROUTE (DC ) Cefazolin Sodium (KEFZOL OR ANCEF) 0 .STK-MED ON E .ROUTE (DC) Vancomycin HCl (VANCOMYCIN HCL) 0 .STK-MED ONE . ROUTE (DC) Etomidate (AMIDATE) 0 .STK-MED ONE IV (DC) Albumin Human (ALBUMINAR-25%) 100 ML .STK-MED ON E IV (DC) Heparin Sodium (HEPARIN SODIUM) 0 .STK-MED ONE . ROUTE (DC) Sodium Chloride (SODIUM CHLORIDE 0.9%) 100 ML .S TK-MED ONE IV (DC) Lidocaine HCl (XYLOCAINE IV) 0 .STK-MED ONE IV ( DC) Magnesium Sulfate (MAGNESIUM SULFATE) 0 .STK-MED ONE IV (DC) Phenylephrine HCl (JACOBO-SYNEPHRINE 10MG/ML AMP) 0 .STK-MED ONE .ROUTE (DC ) Sodium Bicarbonate (SODIUM BICARBONATE) 0 .STK-M ED ONE IV (DC) Fentanyl Citrate (SUBLIMAZE) 0 .STK-MED ONE IV ( DC) Fentanyl Citrate (SUBLIMAZE) 0 .STK-MED ONE IV ( DC) Papaverine HCl (PAPAVERINE HCL) 0 .STK-MED ONE I V (DC) Sodium Chloride (SODIUM CHLORIDE 0.9%) 500 ML .S TK-MED ONE IV (DC) Epinephrine HCl (EPINEPHrine 4 mg/D5W 250 mL) 25 0 ML .STK-MED ONE IV (DC ) Insulin Human Regular (HumuLIN R 100 UNITS/NS 10 0ML) 100 ML .STK-MED ONE IV (DC) Norepinephrine Bitartrate (NOREPINEPHRINE 8 MG/N S 250 ML) 250 ML .STK-MED ONE IV (DC) Aminocaproic Acid (AMICAR) 0 .STK-MED ONE IV (DC ) Calcium Chloride (CALCIUM CHLORIDE) 0 .STK-MED ONE IV (DC) Heparin Sodium (HEPARIN SODIUM) 0 .STK-MED ONE . ROUTE (DC) Nitroglycerin/Dextrose (NITROGLYCERIN 50,000MCG/ D5W 250ML) 250 ML .STK-MED ONE IV (DC) Protamine Sulfate (PROTAMINE SULFATE) 0 .STK-MED ONE IV (DC) Magnesium Sulfate (MAGNESIUM SULFATE) 0 .STK-MED ONE .ROUTE (DC) Ropivacaine (NAROPIN 0.5% 150 MG/30mL) 0 .STK-ME D ONE .ROUTE (DC) Dexamethasone Sodium Phosphate (DECADRON) 0 .STK -MED ONE .ROUTE (DC) Lidocaine HCl (XYLOCAINE) 0 .STK-MED ONE .ROUTE (DC) Ondansetron HCl (ZOFRAN) 0 .STK-MED ONE .ROUTE ( DC) Rocuronium [place] (ZEMURON) 0 .STK-MED ONE IV ( DC) Succinylcholine Chloride (QUELICIN FLIPTOP) 0 .S TK-MED ONE IV (DC) Albumin Human (ALBUMINAR-25%) 100 ML .STK-MED ON E IV (DC) Heparin Sodium (HEPARIN SODIUM) 0 .STK-MED ONE . ROUTE (DC) Lidocaine HCl (XYLOCAINE IV) 0 .STK-MED ONE IV (DC) Sodium Bicarbonate (SODIUM BICARBONATE) 0 .STK-M ED ONE IV (DC) Sodium Chloride (SODIUM CHLORIDE 0.9%) 100 ML .S TK-MED ONE IV (DC) Magnesium Sulfate (MAGNESIUM SULFATE) 0 .STK-MED ONE IV (DC) Phenylephrine HCl (JACOBO-SYNEPHRINE 10MG/ML AMP) 0 .STK-MED ONE .ROUTE (DC ) Cefazolin Sodium (KEFZOL OR ANCEF) 2 GM PREOP O NCALL IV (CKD) Metoprolol Tartrate (LOPRESSOR) 6.25 MG ONCE ONE PO (DC) Vancomycin HCl (VANCOMYCIN HCL) 1,000 MG PREOP O NCALL IV (CKD) Sodium Chloride (SODIUM CHLORIDE 0.9%) 250 ML Verapamil HCl (ISOPTIN) 16.6 MG .Q24H ONE IV (CK D) Heparin Sodium (Porcine) (HEPARIN SODIUM) 1,660 UNIT Sodium Bicarbonate (SODIUM BICARBONATE) 0.7 ML Nitroglycerin/Dextrose (NITROGLYCERIN 50MG/D5W 250ML) 8.3 MG Lactated Ringer's (LACTATED RINGERS) 949.5 ML Mupirocin (BACTROBAN 2% 22 GM OINTMENT) 1 APPLIC BID NASAL Acetaminophen (TYLENOL EXTRA STRENGTH) 1,000 MG PREOP ONCALL PO (CKD) Gabapentin (NEURONTIN) 200 MG PREOP ONCALL PO (C KD) Sodium Chloride (SODIUM CHLORIDE) 20 ML ASDIR IV Aspirin (ASPIRIN) 81 MG DAILY PO Insulin Human Lispro (HUMALOG) 0 AC HS SUBQ Acetaminophen (TYLENOL) 650 MG Q4H PRN PRN PO Al Hydrox/Mg Hydrox/Simethicone (MYLANTA) 30 ML Q4H PRN PRN PO Dextrose/Water (DEXTROSE 10% IN WATER) 125 ML DIR PRN IV (CKD) Dextrose/Water (DEXTROSE 10% IN WATER) 250 ML DIR PRN IV (CKD) Glucagon (GLUCAGON) 1 MG ASDIR PRN IM Hydralazine HCl (APRESOLINE) 10 MG Q6H PRN PRN I V Hydrocodone Bitart/Acetaminophen (NORCO 5/325) 1 TAB Q6H PRN PRN PO Magnesium Hydroxide (MILK OF MAGNESIA) 15 ML Q6H PRN PRN PO Morphine Sulfate (morphine SULFATE) 2 MG Q1H PRN PRN IV Ondansetron HCl (ZOFRAN) 4 MG Q4H PRN PRN IV Temazepam (RESTORIL) 15 MG BEDTIME PRN PRN PO Heparin Sodium (HEPARIN 5000 UNITS/ML) 0 ASDIR P RN IV Heparin Sodium (Porcine) (HEPARIN 25,000 UNITS/ 1/2NS 500ML) 500 ML ASDIR IV (CKD) Physical Exam General appearance: respiratory support, sedated Head/Eyes: CHISHOLM HAIR AND ADAMES Neck: no JVD Cardiovascular: normal heart sounds, regular rat e rhythm Respiratory: aerating well, clear to auscultatio n Abdomen: non-tender, normal bowel sounds, soft Extremities: no edema Musculoskeletal: normal inspection Neuro/RN ELIGIBILITY: no motor deficits Skin: normal color Psychiatry: unable to evaluate Results Findings/Data: Laboratory Tests 09/26 09/26 1226 1109 Blood Gas O2 Saturation (90 - 100 %) 96.2 100.0 ABG pH (7.35 - 7.45) 7.185 *L 7.463 H ABG pCO2 (35.0 - 45 mmHg) 67.2 *H 34.1 L ABG pO2 (80 - 100.0 mmHg) 106.2 H 563.7 *H ABG HCO3 (22.0 - 26.0 MMOL/L) 25.4 24.4 ABG Total CO2 27.4 25.5 ABG Base Excess (-4.0 - 4.0 MMOL/L) -4.2 L 1.1 ABG Hematocrit (37.5 - 50.7 %) 40 41 ABG Hemoglobin (12.5 - 16.9 G/DL) 13.5 13.9 Sodium (134 - 147 mmol/L) 140 141 Potassium (3.4 - 5.0 mmol/L) 3.8 3.6 Chloride (100 - 108 mmol/L) 106 106 Ionized Calcium (1.12 - 1.32 MMOL/L) 1.15 1.15 Lactic Acid (0.9 - 1.7 mmol/l) 0.7 L 0.4 L Laboratory Tests 09/26 09/26 09/26 09/26 09/26 1226 1109 0749 0300 0300 Chemistry POC Creatinine (0.8 - 1.3 mg/dL) 0.8 0.9 POC Glucose (70 - 110 MG/DL) 202 H POC Glucose (mg/dL) (70 - 110 MG/DL) 193 H 115 H Hemoglobin A1c (4.8 - 6.0 %A1C) 6.8 H B-Natriuretic Peptide (0 - 100 331.0 H PG/ML) 09/26 09/25 09/25 0300 2107 1626 Chemistry Sodium (134 - 147 mEq/L) 139 Potassium (3.4 - 5.0 mEq/L) 3.5 Chloride (100 - 108 mEq/L) 105 Carbon Dioxide (21 - 33 mEq/l) 24 Anion Gap (0 - 20) 14 BUN (7 - 18 mg/dL) 7 Creatinine (0.6 - 1.3 mg/dL) 0.9 Glomerular Filtr Rate (70 - 80) 86.3 H Glucose (70 - 110 mg/dL) 106 POC Glucose (70 - 110 MG/DL) 158 H 119 H Calcium (8.0 - 10.5 mg/dL) 8.9 Total Bilirubin (0.0 - 1.0 mg/dL) 0.80 AST (15 - 37 IUnit/L) 26 ALT (30 - 65 IUnit/L) 25 L Total Alk Phosphatase (20 - 125 IUnit/L) 48 Total Protein (6.4 - 8.2 g/dL) 6.2 L Albumin (3.4 - 5.0 g/dL) 3.70 Triglycerides (40 - 150 mg/dL) 91 Cholesterol (<200 mg/dL) 99 LDL Cholesterol [place] (0 - 100 mg/dL) 61.0 HDL Cholesterol (32 - 72 mg/dL) 24.8 L Cholesterol/HDL Ratio (3.43 - 4.97 RATIO) 3.99 Laboratory Tests 09/26 09/26 09/26 09/25 1228 1111 0300 2040 Coagulation INR (0.8 - 1.2) 1.2 PTT ([place]) (25.0 - 39.5 Seconds) 48.1 H 73.6 H PT Patient/Control Mix (9.3 - 12.9 SECONDS) 13. 8 H Activated Coag Time (74 - 137 SEC) 733 H 149 H 09/25 1300 Coagulation PTT ([place]) (25.0 - 39.5 Seconds) 88.4 H Laboratory Tests 09/26 0300 Hematology WBC (4.5 - 11.0 x10 3/uL) 5.7 RBC (4.00 - 5.60 x10 6/uL) 4.68 Hgb (12.5 - 16.9 g/dL) 14.8 Hct (37.5 - 50.7 %) 43.3 MCV (81.0 - 99.0 fL) 92.5 MCH (27.0 - 33.0 pg) 31.6 MCHC (33.0 - 37.0 g/dL) 34.2 RDW (11.5 - 14.5 %) 13.9 Plt Count (150 - 400 x10 3/uL) 164 MPV (7.0 - 9.0 fL) 12.2 H Neut % (Auto) (56.0 - 77.0 %) 64.4 Lymph % (Auto) (14.0 - 32.0 %) 24.9 Isabella % (Auto) (4.8 - 9.0 %) 6.9 Eos % (Auto) (0.3 - 3.7 %) 3.0 Baso % (Auto) (0.0 - 2.0 %) 0.4 Neut # (Auto) (2.0 - 7.6 x10 3/uL) 3.65 Lymph # (Auto) (1.0 - 3.8 x10 3/uL) 1.41 Isabella # (Auto) (0.1 - 0.8 x10 3/uL) 0.39 Eos # (Auto) (0.0 - 0.2 x10 3/uL) 0.17 Baso # (Auto) (0.0 - 0.2 x10 3/uL) 0.02 Abs Immat Gran (auto) (0.00 - 0.03 x10 3/uL) 0 .02 Add Manual Diff NO Immature Gran % (0.0 - 2.0 %) 0.4 Nucleated RBC % (0 - 0 %) 0.0 Nucleated RBCs # (Man) (0.0 - 0.1 x10 3/uL) 0.0 0 Free Text Obj Notes Free Text Obj Notes: General appearance: alert, awake, oriented Head/Eyes: atraumatic, normocephalic ENT: moist mucosal membranes, normal pharynx Neck: non-tender, supple/no meningismus, no JVD Cardiovascular: normal capillary refill, normal heart sounds, regular rate rhythm Respiratory: aerating well, clear to auscultatio n, symmetric expansion Abdomen: non-tender, normal bowel sounds, soft, no distention Extremities: no clubbing, no cyanosis, no edema Neuro/RN ELIGIBILITY: alert, oriented X 3, CNII-XII intact Skin: dry, intact Psychiatry: normal affect, normal judgment/insig ht Diagnosis, Assessment Plan Consultants: cardiovascular surgery Free Text DxA P Notes Free text DxA P notes: NSTEMI, 3-V CAD, SEVERE , S/P CABG/AVR - CARD/ CTS SEEN, PLAN PER CTS Patient found to have elevated troponin at outs [facility] Results of left heart cath not available at thi s time Continue aspirin 81 mg daily Atorvastatin 80 mg at bedtime Cardiothoracic surgery evaluation for CABG Pulmonary edema - Likely due to aortic stenosis, COMPENSATED, ECHO EF 45-50%, DD Chest x-ray with bibasilar opacities BNP elevated at 3114 Hypertension - STABLE Resume home lisinopril 10 mg p.o. daily Hydralazine 10 mg IV every 6 hours as n eeded. Blood pressure greater than 170 Type 2 diabetes mellitus - GOOD, CONT ISS, HGBA1 C 6.8%, LDL 40 Hold home metformin, empagliflozin, and semaglu tide Low-dose sliding scale insulin before meals and at bedtime Hyperlipidemia LDL 40, CONT Atorvastatin 80 mg a t bedtime DVT prophylaxis: Heparin drip, cardiology protoc ol Diet: Carbohydrate consistent CODE STATUS: DO NOT RESUSCITATE Patient reports he has an advanced directive His medical power of banking attorney is son Guille de la vega Electronically Signed by Chiki Fernandez MD on 09/26 at 1244 RPT #:[id number] END OF REPORT 2022-09-26 09:24:00-00:00 [id number] [place] [address] PATIENT NAME: MONICA BECK ADMIT DATE: 09/24/22 ACCOUNT NO: [id number] ROOM NO: [id number] AGE: 82 REPORT TYPE: eECHOCARDIOGRAM REPORT SEX: M ADMITTING PHYSICIAN:Kathya Maria MD ATTENDING PHYSICIAN:Kathya Maria MD *[facility]* [address] [place] [address] Transthoracic Echocardiogram Patient: Monica Beck Study Date: 09/25/2022 BP: 112 / 62 Location: [facility] URN: [id number] 2526 : 1940 Age: 82 Height: 66 in / 167.6 cm Gender: M Weight: 166 .6 lb / 75.7 kg BMI/BSA: 27 kg/m 2 / 1.85 m 2 *Ordering Physician: * Alexandra Christie *Interpreting Physician: * Jakob Pa MD *Cloth Calender: * Doris Hughes Indications: Pre-op. Study data: Transthoracic echocardiogram. Proced ure: Transthoracic echocardiography was performed. Image quality wa s adequate. The study was technically limited due to poor acoustic win trang availability. The parasternal window was low. Complete 2D, complet e spectral Doppler, and color Doppler. Location: Bedside. Patient status : Inpatient. Patient room number: 3356. Study status: ANDREI. Findings Left ventricle: The cavity size is normal. Wall thickness is mildly increased. Systolic function is reduced. The est imated ejection fraction is 45-49%. Moderate diffuse hypokinesis. Feature s are consistent with a pseudonormal left ventricular filling pattern, w ith concomitant abnormal PATIENT NAME: MONICA BECK ACCOUNT #: [id number] relaxation and increased filling pressure (grade 2 diastolic dysfunction). Right ventricle: The cavity size is normal. Syst olic function is mildly reduced. TAPSE measurement is estimated at 16 mm . Insufficient tricuspid regurgitation jet to estimate RVSP. Left atrium: The atrium is at the upper limits of normal in size. Right atrium: The atrium is normal in size. Aorta: The aorta is poorly visualized. Aortic ro ot: The aortic root is dilated, measuring up to 43-44 mm at SOV. Aortic valve: The valve is probably trileaflet. The leaflets are severely thickened and severely calcified. The f indings are consistent with low-flow, low-gradient severe stenosis. Aor tic valve peak velocity is 4.25 m/s, mean PG is estimated at 45.38 mmHg, SHWETA VTI and by planimetry is estimated at 0.7 cm2. There is at least mild to moderate eccentric regurgitation. Mitral valve: The valve is structurally normal. There is no evidence of stenosis. There is mild regurgitatio n. Tricuspid valve: The valve is structurally ronald l. There is trivial regurgitation. Pulmonic valve: Not well visualized. The valve i s structurally normal. There is mild regurgitation. Pericardium: A trivial pericardial effusion fernanda ot be excluded. Pulmonary arteries: The main pulmonary artery is normal-sized. Systemic veins: Inferior vena cava: The vessel is normal in size . The respirophasic diameter changes are in the normal range (= 50%) . Measurements Left ventricle Value Ref ANNE, LAX 5.9 cm 4.2 - 5.8 ESD, LAX 4.4 cm 2.5 - 4.0 ESD/bsa, LAX 2.4 cm/m 2 1.3 - 2.1 FS, LAX 22 % 25 - 43 ESD/bsa major 4.3 cm/m 2 --------- ax, A4C ANNE/bsa minor 4.3 cm/m 2 --------- ax, A4C ANNE major ax, 8.4 cm --------- A2C ESD major ax, 8.0 cm --------- A2C ANNE/bsa major 4.6 cm/m 2 --------- ax, A2C ESD/bsa major 4.3 cm/m 2 --------- ax, A2C PW, ED 1.1 cm 0.6 - 1.0 IVS/PW, ED 0.91 --------- EF 41 % 52 - 72 E', lat avis, 2.0 cm/sec >=10.0 TDI E/e', lat avis, 45 --------- PATIENT NAME: MONICA BECK ACCOUNT #: [id number] TDI E', med avis, 3.3 cm/sec >=7.0 TDI E/e', med avis, 27 --------- TDI E', avg, TDI 2.6 cm/sec --------- E/e', avg, TDI 33 <=14 LVOT Value Ref Diam, S 2.22 cm --------- Area 3.9 cm 2 --------- Peak jose, S 0.75 m/sec --------- Mean jose, S 0.5 m/sec --------- VTI, S 16.9 cm --------- Peak grad, S 2 mm Hg --------- Mean grad, S 1 mm Hg --------- SV 63 ml --------- Qs 4.62 L/min --------- Qs/bsa 2.5 L/(min-m 2) --------- SV/bsa 34 ml/m 2 --------- Ventricular septum Value Ref IVS, ED 1.0 cm 0.6 - 1.0 Right ventricle Value Ref TAPSE, MM 1.6 cm 1.7 - 3.1 RVOT Value Ref Peak v, S 0.59 m/sec --------- Peak grad, S 1 mm Hg --------- Left atrium Value Ref AP dim, ES 4.29 cm 3.00 - 4.00 Vol/bsa, ES, 24 ml/m 2 12 - 37 1-p A4C Vol, ES, 2-p 47 ml --------- Vol/bsa, ES, 25 ml/m 2 16 - 34 2-p Vol/bsa, ES, 33 ml/m 2 16 - 34 A/L AP dim, ES MM 3.1 cm 3.0 - 4.0 LA/Ao root 0.79 --------- ratio, MM Right atrium Value Ref Area, ES 11 cm 2 10 - 18 SI dim, ES, A4C 4.3 cm 3.4 - 5.3 SI dim/bsa, ES, 2.3 cm/m 2 1.8 - 3.0 A4C Vol, ES, A/L 24 ml --------- Vol, ES, 1-p 24 ml --------- A4C Vol/bsa, ES, 13 ml/m 2 11 - 39 PATIENT NAME: MONICA BECK ACCOUNT #: [id number] 1-p A4C Aortic valve Value Ref Leaflet sep 4.4 cm --------- SHWETA, plan 0.68 cm 2 --------- SHWETA/bsa, plan 0.37 cm 2/m 2 --------- Leaflet sep, MM 0.74 cm --------- Peak v, S 4.26 m/sec --------- Mean v, S 3.23 m/sec --------- VTI, S 97.1 cm --------- Mean grad, S 45.4 mm Hg --------- Peak grad, S 72.4 mm Hg --------- LVOT/AV, VTI 0.17 --------- ratio SHWTEA, VTI 0.68 cm 2 --------- LVOT/AV, Vpeak 0.18 --------- ratio SHWETA, Vmax 0.68 cm 2 --------- Mitral valve Value Ref Peak E 0.88 m/sec --------- Peak A 0.67 m/sec --------- Decel time 226 ms --------- PHT 112 ms --------- Peak grad, D 3.1 mm Hg --------- Peak E/A ratio 1.31 --------- MVA, PHT 2.1 cm 2 --------- Pulmonic valve Value Ref OH peak v 1.47 m/sec --------- OH peak grad 9 mm Hg --------- OH v, ED 0.73 m/sec --------- Aortic root Value Ref Root diam, ED 3.85 cm --------- MM Conclusions Summary: 1. Left ventricle: The cavity size is normal. Wa ll thickness is mildly increased. Systolic function is reduced. The es timated ejection fraction is 45-49%. Moderate diffuse hypokinesi s. Features are consistent with a pseudonormal left ventricular filling pattern, with concomitant abnormal relaxation and increased f illing pressure (grade 2 diastolic dysfunction). 2. Right ventricle: Systolic function is mildly reduced. 3. Aortic root: The aortic root is dilated, tim uring up to 43-44 mm at SOV. 4. Aortic valve: The valve is probably trileafle t. The leaflets are severely thickened and severely calcified. The findings are consistent with low-flow, low-gradient severe s tenosis. There is at PATIENT NAME: MONICA BECK ACCOUNT #: [id number] least mild to moderate eccentric regurgitation. 5. Pericardium, extracardiac: A trivial pericard ial effusion cannot be excluded. Prepared and electronically signed by Jakob Pa MD 09/26/2022 09:24 Electronically Signed by Jakob Pa MD on 0 09/26/22 at 0924 PATIENT NAME: MONICA BECK ACCOUNT #: [id number] 2022-09-25 12:25:00-00:00 [facility]g REPORT#:[id number] REPORT STATUS: Signed DATE:09/25/22 TIME: 1225 PATIENT: MONICA EBCK UNIT #: [id number] ROOM/BED: [place] [address] : 42 AGE: 82 SEX: M ATTEND: Ab romain Maria MD ADM AUTHOR: Alexandra Christie * ALL edits or amendments must be made on the [employer] document * Subjective Chief complaint: Pre CABG, AVR eval Review of Systems Constitutional: Denies: chills, fever, malaise. Allergy/Immun: Denies: allergic reaction. Respiratory: Denies: SOB. Cardiovascular: Denies: chest pain, palpitations. : Denies: dysuria, hematuria. Heme: Denies: bleeding. Neuro: Denies: dizziness, headache, vision change. All systems rev neg: except as marked Objective General VS/I O Vital Signs Date Temp Pulse Resp B/P B/P Mean Pulse Ox FiO2 09/24-09/25 97.7-98.1 65-82 14 112-150/60-85 0. 0-99.3 91-98 Last Documented: Result Date Time Pulse Ox 98 09/25 103 B/P 112/62 09/25 1034 B/P Mean 0.0 09/25 1033 O2 Delivery Room air 09/25 1033 Temp 97.9 09/25 1033 Pulse 72 09/25 1034 Resp 14 09/25 1033 24 hour I O ending at 0700: 09/25 0700 09/24 1900 Intake Total 1900.40 265.90 Output Total 1320 100 Balance 580.40 165.90 Intake, IV 250.40 205.90 Intake, Oral 1650 60 Number 0 1 Bowel Movements Output, Urine 1320 100 PATIENT WEIGHT: Weight (lb): 167 Weight (oz): 15.88 Weight (kg): 76.200 Physical Exam General appearance: alert, oriented, mental stat us normal, no respiratory distress HEENT: anicteric, mucosal membranes moist Neck: non-tender, supple/no meningismus Cardiovascular: normal heart sounds Murmur: Systolic 3/6 Respiratory: aerating well, symmetric expansion, no distress Abdomen: soft, non-tender, no distention Extremities: moves all Neuro/RN ELIGIBILITY: alert, oriented X 3, normal speech, n o motor deficits Psychiatry: normal affect, normal mood Current Medications Medications: Active Meds + DC'd Last 24 Hrs Cefazolin Sodium (KEFZOL OR ANCEF) 2 GM PREOP 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 IV (CKD) Metoprolol Tartrate (LOPRESSOR) 6.25 MG ONCE ONE PO Vancomycin HCl (VANCOMYCIN HCL) 1,000 MG PREOP O NCALL IV (CKD) Sodium Chloride (SODIUM CHLORIDE 0.9%) 250 ML Verapamil HCl (ISOPTIN) 16.6 MG .Q24H ONE IV (CK D) Heparin Sodium (Porcine) (HEPARIN SODIUM) 1,660 UNIT Sodium Bicarbonate (SODIUM BICARBONATE) 0.7 ML Nitroglycerin/Dextrose (NITROGLYCERIN 50MG/D5W 250ML) 8.3 MG Lactated Ringer's (LACTATED RINGERS) 949.5 ML Acetaminophen (TYLENOL EXTRA STRENGTH) 1,000 MG PREOP ONCALL PO (CKD) Gabapentin (NEURONTIN) 200 MG PREOP ONCALL PO (C KD) Sodium Chloride (SODIUM CHLORIDE) 20 ML ASDIR IV Aspirin (ASPIRIN) 81 MG DAILY PO Insulin Human Lispro (HUMALOG) 0 AC HS SUBQ Acetaminophen (TYLENOL) 650 MG Q4H PRN PRN PO Al Hydrox/Mg Hydrox/Simethicone (MYLANTA) 30 ML Q4H PRN PRN PO Dextrose/Water (DEXTROSE 10% IN WATER) 125 ML DIR PRN IV (CKD) Dextrose/Water (DEXTROSE 10% IN WATER) 250 ML DIR PRN IV (CKD) Glucagon (GLUCAGON) 1 MG ASDIR PRN IM Hydralazine HCl (APRESOLINE) 10 MG Q6H PRN PRN I V Hydrocodone Bitart/Acetaminophen (NORCO 5/325) 1 TAB Q6H PRN PRN PO Magnesium Hydroxide (MILK OF MAGNESIA) 15 ML Q6H PRN PRN PO Morphine Sulfate (morphine SULFATE) 2 MG Q1H PRN PRN IV Ondansetron HCl (ZOFRAN) 4 MG Q4H PRN PRN IV Temazepam (RESTORIL) 15 MG BEDTIME PRN PRN PO Heparin Sodium (HEPARIN 5000 UNITS/ML) 0 ASDIR P RN IV Heparin Sodium (Porcine) (HEPARIN 25,000 UNITS/ 1/2NS 500ML) 500 ML ASDIR IV (CKD) Results Findings/Data: Laboratory Tests 09/25 2040 1623 Chemistry Sodium (134 - 147 mEq/L) 142 Potassium (3.4 - 5.0 mEq/L) 3.6 Chloride (100 - 108 mEq/L) 107 Carbon Dioxide (21 - 33 mEq/l) 27 Anion Gap (0 - 20) 11 BUN (7 - 18 mg/dL) 10 Creatinine (0.6 - 1.3 mg/dL) 0.9 Glomerular Filtr Rate (70 - 80) 86.3 H Glucose (70 - 110 mg/dL) 91 POC Glucose (70 - 110 MG/DL) 167 H 172 H Calcium (8.0 - 10.5 mg/dL) 8.2 Laboratory Tests 09/25 2329 1700 Coagulation PTT (Ruby) (25.0 - 39.5 Seconds) 54.3 H 70.3 H 68.8 H Laboratory Tests 09/25 449 Hematology WBC (4.5 - 11.0 x10 3/uL) 5.6 RBC (4.00 - 5.60 x10 6/uL) 4.40 Hgb (12.5 - 16.9 g/dL) 13.9 Hct (37.5 - 50.7 %) 41.2 MCV (81.0 - 99.0 fL) 93.6 MCH (27.0 - 33.0 pg) 31.6 MCHC (33.0 - 37.0 g/dL) 33.7 RDW (11.5 - 14.5 %) 13.8 Plt Count (150 - 400 x10 3/uL) 156 MPV (7.0 - 9.0 fL) 11.8 H Neut % (Auto) (56.0 - 77.0 %) 65.6 Lymph % (Auto) (14.0 - 32.0 %) 23.4 Isabella % (Auto) (4.8 - 9.0 %) 7.9 Eos % (Auto) (0.3 - 3.7 %) 2.7 Baso % (Auto) (0.0 - 2.0 %) 0.2 Neut # (Auto) (2.0 - 7.6 x10 3/uL) 3.67 Lymph # (Auto) (1.0 - 3.8 x10 3/uL) 1.31 Isabella # (Auto) (0.1 - 0.8 x10 3/uL) 0.44 Eos # (Auto) (0.0 - 0.2 x10 3/uL) 0.15 Baso # (Auto) (0.0 - 0.2 x10 3/uL) 0.01 Abs Immat Gran (auto) (0.00 - 0.03 x10 3/uL) 0. 01 Add Manual Diff NO Immature Gran % (0.0 - 2.0 %) 0.2 Nucleated RBC % (0 - 0 %) 0.0 Nucleated RBCs # (Man) (0.0 - 0.1 x10 3/uL) 0.0 0 Laboratory Tests 09/26 315 Serology SARS-CoV-2 Ag (Rapid) (Negative) Negative Laboratory Tests 09/25 06 Urines Urine Color (YEL/STRAW) YELLOW Urine Appearance (CLEAR) CLEAR Urine pH (5.0 - 7.0) 5.0 Ur Specific [place] (1.005 - 1.030) 1.022 Urine Protein (NEGATIVE) NEGATIVE Urine Glucose (UA) (NEGATIVE) 3+ H Urine Ketones (NEGATIVE) 1+ H Urine Blood (NEGATIVE) NEGATIVE Urine Nitrite (NEGATIVE) NEGATIVE Urine Bilirubin (NEGATIVE) NEGATIVE Urine Urobilinogen (0.2 - 1.0 mg/dL) 0.2 Ur Leukocyte Esterase (NEGATIVE) NEGATIVE Urine RBC (0 - 3 RBC/HPF) 0-3 Urine WBC (0 - 3 WBC/HPF) 0-3 Ur Squamous Epith Cells (NONE SEEN /HPF) 0-5 Urine Bacteria (NONE SEEN /HPF) TRACE Urine Mucus (NONE SEEN /LPF) TRACE Radiology data: Recent Impressions: ULTRASOUND - DUP VEIN AILEEN 09/24 1653 Report Impression - Status: SIGNED Entered: 09/24/2022 184 Impression: Vein mapping as described above. Impression By: Celia Salmon M.D. ULTRASOUND - DUP EXTRACRANIAL AILEEN 09/24 1653 Report Impression - Status: SIGNED Entered: 09/24/2022 1842 IMPRESSION: 1. RIGHT: Carotid artery stenosis estimated at l ess than 50% 2. LEFT: Carotid artery stenosis estimated at le ss than 50% Impression By: Celia Salmon M.D. Diagnosis, Assessment Plan Hospital course to date: Mr Beck a very pleasant 82-year-old male with past medical history of diabetes, hyperlipidemia, restless leg syndrome aortic valve stenosis who presented to [facility] complaining of substernal chest pain across the anterior chest positive for n ausea and diaphoresis. CT chest showed small to moderate bilateral pleural effusions, ascending aorta measuring 4.2 cm. Cardiac enzymes elevated pat ient deemed non-STEMI. He was taken to the [facility] coronary angiogram revealed severe multivessel coronary artery disease. Patient started on heparin drip and transferred to [facility] for possible CABG and AVR. PLAN Coronary angiogram images will be uploaded in [employer] system Dr Maria explained to the patient his family t he angiogram findings and echocardiogram findings and recommended coronary artery bypass graft and aortic valve replacement. The surgery, risks involved, STS score, benefits, complications and alternatives were expl ained to the patient including risk of stroke, respiratory failure, need for tracheosto my, renal failure requiring dialysis, bleeding, infection. Patient acknowled ged understanding and is willing to proceed Initiate preop work-up for AVR Carotid ultrasound BLE venous doppler for vein mapping and marking UA to rule out UTI We will tentatively schedule patient for AVR on 09/26 Preop assessment ongoing Denies chest pain, no shortness of breath Remains on heparin drip Carotid ultrasound showed less than 50% stenosis bilaterally Noncontrasted CT chest performed at [facility] reviewed with Dr. Maria. Images will be uploaded in our system. Coronary angiogram images uploaded in [employer] Plan for CABG and AVR tomorr ow morning. The surgery, risks involved, STS score, benefits, complications and alternatives were ex plained to the patient. He acknowledged understanding and is willing to pro ceed. Patient changed code status to FULL CODE as he i s going for surgery N.p.o. after midnight Consultants: cardiovascular surgery at 1758 at 0701 RPT #:[id number] END OF REPORT 2022-09-25 11:36:00-00:00 [facility] Hospitalist Progress Note REPORT#:[id number] REPORT STATUS: Signed DATE:09/25/22 TIME: 1136 PATIENT: MONICA BECK UNIT #: [id number] ROOM/BED: [place] [id number] : 42 AGE: 82 SEX: M ATTEND: Ab romain Maria MD ADM AUTHOR: Chiki Fernandez MD * ALL edits or amendments must be made on the el [employer]/computer document * Subjective Chief complaint: AT BS, NOC OMPLAINTS, PLAN FOR CABG/AVR ON MONDAY HPI: 82-year-old male with past m edical history of hypertension, hyperlipidemia, type 2 diabetes mellitus, restless leg syndro me, and aortic stenosis is transferred here from [facility], where he presen tamra today with complaint of chest pain for the past few weeks. Patie nt complained of substernal chest pain associated with diaphoresis. He was found to hav e elevated troponin I and cardiology was consulted. Patient had left heart catheterization, the results of which are not available at this time. He was then transferred to [facility] for evaluation by cardiothoracic surge ry. Objective General VS/I O: Vital Signs: Date Time Temp Pulse Resp B/P B/P Pulse O2 O2 F low FiO2 Mean Ox Delivery Rate 09/25 1034 97.9 72 14 112/62 0.0 98 Room air / 0706 97.9 72 14 149/67 0.0 97 Room air 05/07 0541 97.7 65 14 149/67 0.0 96 Room air 05/ 0120 98.1 82 14 149/85 0.0 94 Room air / 2043 97.7 76 14 133/60 0.0 93 Room air / 1624 97.9 75 14 150/74 99.3 91 Room air 24 hour I O ending at 0700: 09/25 0700 05/ 1900 Intake Total 1900.40 265.90 Output Total 1320 100 Balance 580.40 165.90 Intake, IV 250.40 205.90 Intake, Oral 1650 60 Number 0 1 Bowel Movements Output, Urine 1320 100 PATIENT WEIGHT: Weight (lb): 167 Weight (oz): 15.88 Weight (kg): 76.200 Medications: Active Meds + DC'd Last 24 Hrs Cefazolin Sodium (KEFZOL OR ANCEF) 2 GM PREOP 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 IV (CKD) Metoprolol Tartrate (LOPRESSOR) 6.25 MG ONCE ONE PO Vancomycin HCl (VANCOMYCIN HCL) 1,000 MG PREOP O NCALL IV (CKD) Sodium Chloride (SODIUM CHLORIDE 0.9%) 250 ML Verapamil HCl (ISOPTIN) 16.6 MG .Q24H ONE IV (CK D) Heparin Sodium (Porcine) (HEPARIN SODIUM) 1,660 UNIT Sodium Bicarbonate (SODIUM BICARBONATE) 0.7 ML Nitroglycerin/Dextrose (NITROGLYCERIN 50MG/D5W 250ML) 8.3 MG Lactated Ringer's (LACTATED RINGERS) 949.5 ML Acetaminophen (TYLENOL EXTRA STRENGTH) 1,000 MG PREOP ONCALL PO (CKD) Gabapentin (NEURONTIN) 200 MG PREOP ONCALL PO (C KD) Sodium Chloride (SODIUM CHLORIDE) 20 ML ASDIR IV Aspirin (ASPIRIN) 81 MG DAILY PO Insulin Human Lispro (HUMALOG) 0 AC HS SUBQ Acetaminophen (TYLENOL) 650 MG Q4H PRN PRN PO Al Hydrox/Mg Hydrox/Simethicone (MYLANTA) 30 ML Q4H PRN PRN PO Dextrose/Water (DEXTROSE 10% IN WATER) 125 ML DIR PRN IV (CKD) Dextrose/Water (DEXTROSE 10% IN WATER) 250 ML DIR PRN IV (CKD) Glucagon (GLUCAGON) 1 MG ASDIR PRN IM Hydralazine HCl (APRESOLINE) 10 MG Q6H PRN PRN I V Hydrocodone Bitart/Acetaminophen (NORCO 5/325) 1 TAB Q6H PRN PRN PO Magnesium Hydroxide (MILK OF MAGNESIA) 15 ML Q6H PRN PRN PO Morphine Sulfate (morphine SULFATE) 2 MG Q1H PRN PRN IV Ondansetron HCl (ZOFRAN) 4 MG Q4H PRN PRN IV Temazepam (RESTORIL) 15 MG BEDTIME PRN PRN PO Heparin Sodium (HEPARIN 5000 UNITS/ML) 0 ASDIR P RN IV Heparin Sodium (Porcine) (HEPARIN 25,000 UNITS/ 1/2NS 500ML) 500 ML ASDIR IV (CKD) Physical Exam General appearance: alert, awake Head/Eyes: CH[place]OLM HAIR AND ADAMES Neck: no JVD Cardiovascular: normal heart sounds, regular rat e rhythm Respiratory: aerating well, clear to auscultatio n Abdomen: non-tender, normal bowel sounds, soft Extremities: no edema Musculoskeletal: normal inspection Neuro/RN ELIGIBILITY: alert, oriented X 3, normal speech, n o motor deficits Skin: normal color Psychiatry: normal affect, normal judgment/insig ht Results Findings/Data: Laboratory Tests 09/25 09/24 09/24 0450 2040 1623 Chemistry Sodium (134 - 147 mEq/L) 142 Potassium (3.4 - 5.0 mEq/L) 3.6 Chloride (100 - 108 mEq/L) 107 Carbon Dioxide (21 - 33 mEq/l) 27 Anion Gap (0 - 20) 11 BUN (7 - 18 mg/dL) 10 Creatinine (0.6 - 1.3 mg/dL) 0.9 Glomerular Filtr Rate (70 - 80) 86.3 H Glucose (70 - 110 mg/dL) 91 POC Glucose (70 - 110 MG/DL) 167 H 172 H Calcium (8.0 - 10.5 mg/dL) 8.2 Laboratory Tests 09/25 2329 1700 Coagulation PTT ([place]) (25.0 - 39.5 Seconds) 54.3 H 70.3 H 68.8 H Laboratory Tests 09/250 Hematology WBC (4.5 - 11.0 x10 3/uL) 5.6 RBC (4.00 - 5.60 x10 6/uL) 4.40 Hgb (12.5 - 16.9 g/dL) 13.9 Hct (37.5 - 50.7 %) 41.2 MCV (81.0 - 99.0 fL) 93.6 MCH (27.0 - 33.0 pg) 31.6 MCHC (33.0 - 37.0 g/dL) 33.7 RDW (11.5 - 14.5 %) 13.8 Plt Count (150 - 400 x10 3/uL) 156 MPV (7.0 - 9.0 fL) 11.8 H Neut % (Auto) (56.0 - 77.0 %) 65.6 Lymph % (Auto) (14.0 - 32.0 %) 23.4 Isabella % (Auto) (4.8 - 9.0 %) 7.9 Eos % (Auto) (0.3 - 3.7 %) 2.7 Baso % (Auto) (0.0 - 2.0 %) 0.2 Neut # (Auto) (2.0 - 7.6 x10 3/uL) 3.67 Lymph # (Auto) (1.0 - 3.8 x10 3/uL) 1.31 Isabella # (Auto) (0.1 - 0.8 x10 3/uL) 0.44 Eos # (Auto) (0.0 - 0.2 x10 3/uL) 0.15 Baso # (Auto) (0.0 - 0.2 x10 3/uL) 0.01 Abs Immat Gran (auto) (0.00 - 0.03 x10 3/uL) 0 .01 Add Manual Diff NO Immature Gran % (0.0 - 2.0 %) 0.2 Nucleated RBC % (0 - 0 %) 0.0 Nucleated RBCs # (Man) (0.0 - 0.1 x10 3/uL) 0.0 0 Laboratory Tests 09/25 0316 Serology SARS-CoV-2 Ag (Rapid) (Negative) Negative Laboratory Tests 09/25 0655 Urines Urine Color (YEL/STRAW) YELLOW Urine Appearance (CLEAR) CLEAR Urine pH (5.0 - 7.0) 5.0 Ur Specific [place] (1.005 - 1.030) 1.022 Urine Protein (NEGATIVE) NEGATIVE Urine Glucose (UA) (NEGATIVE) 3+ H Urine Ketones (NEGATIVE) 1+ H Urine Blood (NEGATIVE) NEGATIVE Urine Nitrite (NEGATIVE) NEGATIVE Urine Bilirubin (NEGATIVE) NEGATIVE Urine Urobilinogen (0.2 - 1.0 mg/dL) 0.2 Ur Leukocyte Esterase (NEGATIVE) NEGATIVE Urine RBC (0 - 3 RBC/HPF) 0-3 Urine WBC (0 - 3 WBC/HPF) 0-3 Ur Squamous Epith Cells (NONE SEEN /HPF) 0-5 Urine Bacteria (NONE SEEN /HPF) TRACE Urine Mucus (NONE SEEN /LPF) TRACE Radiology data: Recent Impressions: ULTRASOUND - DUP VEIN AILEEN 09/24 1653 Report Impression - Status: SIGNED Entered: 09/24/2022 184 Impression: Vein mapping as described above. Impression By: Celia Salmon M.D. ULTRASOUND - DUP EXTRACRANIAL AILEEN 09/24 1653 Report Impression - Status: SIGNED Entered: 09/24/2022 1842 IMPRESSION: 1. RIGHT: Carotid artery stenosis estimated at l ess than 50% 2. LEFT: Carotid artery stenosis estimated at le ss than 50% Impression By: Celia Salmon M.D. Free Text Obj Notes Free Text Obj Notes: General appearance: alert, awake, oriented Head/Eyes: atraumatic, normocephalic ENT: moist mucosal membranes, normal pharynx Neck: non-tender, supple/no meningismus, no JVD Cardiovascular: normal capillary refill, normal heart sounds, regular rate rhythm Respiratory: aerating well, clear to auscultatio n, symmetric expansion Abdomen: non-tender, normal bowel sounds, soft, no distention Extremities: no clubbing, no cyanosis, no edema Neuro/RN ELIGIBILITY: alert, oriented X 3, CNII-XII intact Skin: dry, intact Psychiatry: normal affect, normal judgment/insig ht Diagnosis, Assessment Plan Consultants: cardiovascular surgery Free Text DxA P Notes Free text DxA P notes: NSTEMI, 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 daily Hydralazine 10 mg IV every 6 hours as n eeded. Blood pressure greater than 170 Type 2 diabetes mellitus - GOOD, CONT ISS, HGBA1 C 6.8%, LDL 40 Hold home metformin, empagliflozin, and semaglu tide Low-dose sliding scale insulin before meals and at bedtime Hyperlipidemia LDL 40, CONT Atorvastatin 80 mg a t bedtime DVT prophylaxis: Heparin drip, cardiology protoc ol Diet: Carbohydrate consistent CODE STATUS: DO NOT RESUSCITATE Patient reports he has an advanced directive His medical power of banking attorney is son [place] de [place] ve[place] Electronically Signed by Chiki Fernandez MD on 09/25 at 1139 RPT #:[id number] END OF REPORT 2022-09-24 16:39:00-00:00 [facility] Clinical Note REPORT#:[id number] REPORT STATUS: Signed DATE:09/24/22 TIME: 1638 PATIENT: MONICA BECK UNIT #: [id number] ROOM/BED: [place] [id number] : 42 AGE: 82 SEX: M ATTEND: Nicolasa Maria MD ADM AUTHOR: Chiki Fernandez MD * ALL edits or amendments must be made on the el [employer]/computer document * Clinical Note Note: EEN DR. RICHTER THIS AM, H/O DM, HTN, NOW 3V CA D, AND , NEED CABG/AVR, CTS SEEN, PREOP EVAL. Electronically Signed by Chiki Fernandez MD on 09/24 at 1639 RPT #:[id number] END OF REPORT 2022-09-24 09:19:00-00:00 [facility] Cardiothoracic Surgery Consult REPORT#:[id number] REPORT STATUS: Signed DATE:09/24/22 TIME: 918 PATIENT: MONICA BECK UNIT #: [id number] ROOM/BED: [place] [address] : 42 AGE: 82 SEX: M ATTEND: Nicolasa Maria MD ADM AUTHOR: Alexandra Christie P * ALL edits or amendments must be made on the [employer]/computer document * Zandra Jimenez 09/24/22918: History of Present Illness HPI Chief complaint: Chest pain Aortic stenosis PCP: PCP: Kathya Maria MD HPI: Mr Beck a very pleasant 82-year-old male with past medical history of diabetes, hyperlipidemia, restless leg syndrome aortic valve stenosis who presented to [facility] complaining of substernal chest pain across the anterior chest positive for n ausea and diaphoresis. CT chest showed small to moderate bilateral pleural effusions, ascending aorta measuring 4.2 cm. Cardiac enzymes elevated pat ient deemed non-STEMI. He was taken to the [facility] coronary angiogram revealed severe multivessel coronary artery disease. Patient started on heparin drip and transferred to [facility] for possible CABG and AVR. History Additional Medical History: Hypertension Hyperlipidemia Type 2 diabetes mellitus Restless leg syndrome Aortic stenosis Additional Surgical History: Cholecystectomy Varicose veins Alcohol Use Denies EtOH use Drug Use Denies recreational drugs Smoking status for patients 13 years old or olde r: Never Smoker Medications: Home Medications: Medication Dose/Rte/Freq Days Qty Entered Last Max Daily Dose Reviewed Unable to Obtain Home Medication History Current Hospital Medications: Blood Formation,Coagulation Sig/Jocy Start time Last Medication Dose Route Stop Time Status Admin Heparin Sodium 0 ASDIR PRN 09/24 0200 AC (HEPARIN 5000 UNITS/ IV 10/24 0159 ML) Heparin Sodium 500 ML ASDIR 09/24 0200 CKD (Porcine) IV 10/24 0159 (HEPARIN 25,000 UNITS/ 1/2NS 500ML) Cardiovascular Drugs Sig/Jocy Start time Last Medication Dose Route Stop Time Status Admin Hydralazine HCl 10 MG Q6H PRN PRN 09/24 0245 AC (APRESOLINE) IV 10/24 024 Central Nervous System Agents Sig/Jocy Start time Last Medication Dose Route Stop Time Status Admin Aspirin 81 MG DAILY 09/24 0900 AC 09/24 (ASPIRIN) PO 10/24 0859 0842 Magnesium Sulfate/ 100 ML ONCE ONE 09/24 0315 D C 09/24 Dextrose IV 09/24 0414 0338 (MAGNESIUM SULFATE 1GM/D5W 100ML) Acetaminophen 650 MG Q4H PRN PRN 09/24 0245 AC (TYLENOL) PO 10/24 024 Hydrocodone Bitart/ 1 TAB Q6H PRN PRN 09/24 024 5 AC Acetaminophen PO 09/29 024 (NORCO 5/325) Morphine Sulfate 2 MG Q1H PRN PRN 09/24 0245 AC (morphine SULFATE) IV 09/29 024 Temazepam 15 MG BEDTIME PRN PRN 09/24 0245 AC (RESTORIL) PO 10/24 024 Electrolytic, Caloric, And Rolan Sig/Jocy Start time Last Medication Dose Route Stop Time Status Admin Dextrose/Water 125 ML ASDIR PRN 09/24 0245 CKD (DEXTROSE 10% IN IV 10/25 243 WATER) Dextrose/Water 250 ML ASDIR PRN 09/24 0245 CKD (DEXTROSE 10% IN IV 10/24 024 WATER) Gastrointestinal Drugs Sig/Jocy Start time Last Medication Dose Route Stop Time Status Admin Al Hydrox/Mg Hydrox/ 30 ML Q4H PRN PRN 09/24 02 45 AC Simethicone PO 10/24 024 (MYLANTA) Magnesium Hydroxide 15 ML Q6H PRN PRN 09/24 02 45 AC (MILK OF MAGNESIA) PO 10/24 024 Ondansetron HCl 4 MG Q4H PRN PRN 09/24 0245 AC (ZOFRAN) IV 10/24 024 Hormones And Synthetic Substit Sig/Jocy Start time Last Medication Dose Route Stop Time Status Admin Insulin Human Lispro 0 AC HS 09/24 07 AC (HUMALOG) SUBQ 10/24 07 Glucagon 1 MG ASDIR PRN 09/24 0245 AC (GLUCAGON) IM 10/24 024 Allergies: Coded Allergies: No Known Allergies (09/24/22) Review of Systems Free Text ROS Notes Free Text ROS Notes: Constitutional: Negative for fever, chills, weig ht loss Skin: Negative for rash, negative for swelling n egative for any laceration HEENT: Denies hearing loss denies, any ear ringi ng denies any earache, throat pain Respiratory: Denies dyspnea on exertion denies hemoptysis , cough, shortness of breath Cardiac: Intermittent chest pain, denies lower e xtremity edema GI: Denies constipation denies diarrhea : Denies hematuria denies dysuria denies flank pain Musculoskeletal: Denies any joint pain denies an y joint swelling denies any myalgia Hematologic: Denies any easy bruising, denies an y bleeding Endocrine: denies any night sweats, denies polyu dereje polydipsia Neurologic: Denies any lightheaded denies any he adache denies any confusion denies any dizziness Objective Physical Exam VS/I O: Last Documented: Result Date Time Pulse Ox 95 / 0810 B/P 94/53 09/24 0810 B/P Mean 66 / 0810 Temp 98.1 / 0810 Pulse 83 / 0810 Resp 15 / 0810 24 hour I O ending at 0700: 06 0700 05/05 1900 Intake Total Output Total Balance Patient 168 lb Weight Weight Standing scale Measurement Method PATIENT WEIGHT: Weight (lb): 167 Weight (oz): 15.88 Weight (kg): 76.200 Free Text Obj Notes Free Text Obj Notes: General: Alert and oriented, no acute distress HEENT: conjunctiva clear, ex traocular movement intact, PERRLA, sclera anicteric. normal dentition, gums, normal, oral mucosa with out pallor or cyanosis. Neck: no, JVD, trachea midline, no, lymphadenopa thy, neck supple, normal ROM. Respiratory: Clear to auscultation, no distress. Cardiovascular: Normal heart sounds, systolic mu rmur 3/5 Abdomen: Soft, non tender. No rebound. No guardi ng Extremities: dry, moves all. Musculoskeletal: Full range of motion, no CVA te nderness, no muscle spasm Skin: warm, dry, no, lesions, rash. Neurologic: Alert and oriented x3. Psychiatric: affect and demeanor normal, normal speech, appropriate mood and affect. Diagnosis, Assessment Plan Free Text A P: Mr Beck a very pleasant 82-year-old male with past medical history of diabetes, hyperlipidemia, restless leg syndrome aortic valve stenosis who presented to [facility] complaining of substernal chest pain across the anterior chest positive for n ausea and diaphoresis. CT chest showed small to moderate bilateral pleural effusions, ascending aorta measuring 4.2 cm. Cardiac enzymes elevated pat ient deemed non-STEMI. He was taken to the [facility] coronary angiogram revealed severe multivessel coronary artery disease. Patient started on heparin drip and transferred to [facility] for possible CABG and AVR. PLAN Coronary angiogram images will be uploaded in [employer] system Dr Maria explained to the patient his family t he angiogram findings and echocardiogram findings and recommended coronary artery bypass graft and aortic valve replacement. The surgery, risks involved, STS score, benefits, complications and alternatives were expl ained to the patient including risk of stroke, respiratory failure, need for tracheosto my, renal failure requiring dialysis, bleeding, infection. Patient acknowled ged understanding and is willing to proceed Initiate preop work-up for AVR Carotid ultrasound BLE venous doppler for vein mapping and marking UA to rule out UTI We will tentatively schedule patient for AVR on Tuesday 09/26 Thank you for the consultation. The gerda ent was seen and plan reviewed with Dr Maria Consultants: cardiovascular surgery Kathya Maria 10/06/22 0657: Attestations Physician Attestation Agree w/findings plan: I have seen and examined Mr. Beck. I agree wi th the findings and plan as documented by DEDE Vargas. Briefly, 82-year-old gentleman with severe aorti c stenosis and significant coronary artery disease. Patient will benefit fr om AVR and coronary bypass graft surgery. I had a long discussion with the patient explained to him the echo and angiogram finding and need for interven tion on the aortic valve and bypass surgery. I have discu ssed with him the procedure, risk involved, benefit , alternatives, STS risk score, and complication s. Patient being admitted to the hospital today for the procedure I have answ ered all questions. at 1207 at 0701 RPT #:[id number] END OF REPORT 2022-09-24 02:40:00-00:00 [facility] ([facility]) Hospitalist Consultation REPORT#:[id number] REPORT STATUS: Signed DATE:09/24/22 TIME: 239 PATIENT: MONICA BECK UNIT #: [id number] ROOM/BED: [place] [id number] : 42 AGE: 82 SEX: M ATTEND: Nicolasa Maria MD ADM AUTHOR: Mayo Richter DO * ALL edits or amendments must be made on the [employer]/computer document * History of Present Illness Requesting Clinician: Dr Maria Chief complaint: Chest pain PCP: PCP: ZAHEER HPI: 82-year-old male with past m edical history of hypertension, hyperlipidemia, type 2 diabetes mellitus, restless leg syndro me, and aortic stenosis is transferred here from [facility], where he presen tamra today with complaint of chest pain for the past few weeks. Patie nt complained of substernal chest pain associated with diaphoresis. He was found to hav e elevated troponin I and cardiology was consulted. Patient had left heart catheterization, the results of which are not available at this time. He was then transferred to [facility] for evaluation by cardiothoracic surge ry. History - Adult longitudinal Additional medical history: Hypertension Hyperlipidemia Type 2 diabetes mellitus Restless leg syndrome Aortic stenosis Additional surgical history: Cholecystectomy Varicose veins Additional family history: Reviewed and noncontributory Alcohol use: Denies EtOH use Drug use: Denies recreational drugs Smoking status for patients 13 years old or olde r: Never Smoker Medications: Atorvastatin 80 mg at bedtime Empagliflozin 25 mg daily Vitamin D2 50,000 units weekly Lisinopril 10 mg daily Metformin 1000 mg twice daily Semaglutide 0.25 milligrams weekly Allergies: Coded Allergies: No Known Allergies (09/24/22) Review of Systems Skin: diaphoresis. Cardiovascular: chest pain. All systems rev neg: except as marked Objective VS/I O 24 hour I O ending at 0700: 06 0700 09/23 1900 Intake Total Output Total Balance Patient 76.2 kg Weight Weight Standing scale Measurement Method Results Results: labs reviewed, vital signs reviewed Free Text Obj Notes Free Text Obj Notes: General appearance: alert, awake, oriented Head/Eyes: atraumatic, normocephalic ENT: moist mucosal membranes, normal pharynx Neck: non-tender, supple/no meningismus, no JVD Cardiovascular: normal capillary refill, normal heart sounds, regular rate rhythm Respiratory: aerating well, clear to auscultatio n, symmetric expansion Abdomen: non-tender, normal bowel sounds, soft, no distention Extremities: no clubbing, no cyanosis, no edema Neuro/RN ELIGIBILITY: alert, oriented X 3, CNII-XII intact Skin: dry, intact Psychiatry: normal affect, normal judgment/insig ht Diagnosis, Assessment Plan Orders: Procedure Date/time Status COMPREHENSIVE METABOLIC PANEL 09/25 0500 Active CONSISTENT CARBOHYDRATE DIET 09/24 B Active Resuscitation Status 09/25 239 Active _RT: OXYGEN THERAPY 09/25 239 Active Vital Signs 09/25 239 Active Telemetry Monitoring 09/25 239 Active Educate/Teach Patient 09/25 239 Active Notify MD: Hypoglycemia 09/25 239 Active Notify MD Vitals 09/24 024 Active Notify MD - Labs 09/24 024 Active MRSA Protocol 09/24 024 Active IV Access 09/25 239 Active Intake Output 09/25 239 Active NPO/Low Intake Insulin Instr 09/24 024 Active Hypoglycemia Orders 09/24 024 Active VTE Education 09/24 024 Active Smoking Cessation Education 09/25 239 Active Educate/Teach Hypoglycemia 09/24 024 Active Weight: Obtain 09/25 239 Active Correctional Insulin Instr 09/24 024 Active Conditional Diagnostic Test 09/25 239 Active Activity 09/24 024 Active BASIC METABOLIC PANEL 09/24 024 Active Consultants: cardiovascular surgery Plan discussed with: patient Time spent: >50% spent on counseling/coordination of care: yes Code Status/Resusc. Discussion Resuscitation discussion: Discussed with: patient Code status: do not resuscitate Free Text DxA P Notes Free Text DxA P Notes: NSTEMI Patient found to have elevated troponin at outs [facility] Results of left heart cath not available at thi s time Continue aspirin 81 mg daily Atorvastatin 80 mg at bedtime Cardiothoracic surgery evaluation for CABG Pulmonary edema -Likely due to aortic stenosis Chest x-ray with bibasilar opacities BNP elevated at 3114 Obtain echocardiogram Hypertension Resume home lisinopril 10 mg p.o. daily Hydralazine 10 mg IV every 6 hours as n eeded. Blood pressure greater than 170 Type 2 diabetes mellitus Hold home metformin, empagliflozin, and semaglu tide Low-dose sliding scale insulin before meals and at bedtime Hyperlipidemia atorvastatin 80 mg at bedtime DVT prophylaxis: Heparin drip, cardiology protoc ol Diet: Carbohydrate consistent CODE STATUS: DO NOT RESUSCITATE Patient reports he has an advanced directive His medical power of banking attorney is son Guille de la vega at 0640 RPT #:[id number] END OF REPORT
--- NOTE | 2022-10-14 16:52 | RAD REPORT ---
EXAM DESCRIPTION: RAD - Chest Single View - 10/14/2022 4:44 pm CLINICAL HISTORY: Syncope, recent cardiac bypass COMPARISON: 09/23/2022 TECHNIQUE: AP portable view of the chest was obtained . FINDINGS: Lungs are clear with improvement of bibasilar patchy airspace opacities. Residual left cos tophrenic angle blunting, may suggest pleural thickening or trace effusion. Heart and vasculature are normal, with sequelae of prior CABG noted. No sizable pleural effusion and no pneumothorax. No gross bony abnormality seen. IMPRESSION: No acute cardiopulmonary process.
[2022-10-14 16:56] LABS: Absolute Lymphocytes (CBC) 1.1 K/uL (0.7-4.9); Hematocrit 32.8 % (39.6-49.0); Lymphocytes % 12.1 % (15.3-44.8); MCV 92.6 fL (80-100); MPV 7.5 fL (7.6-11.3); RBC Red Blood Cell Count 3.54 M/uL (4.33-5.43)
[2022-10-14] MEDS ORDERED: NA CHLORIDE 0.9% 500 ML ONE (17:04)
[2022-10-14 17:15] LABS: Potassium 4.1 mEq/L (3.5-5.1); Troponin High Sensitivity 47.7 pg/mL (<58.9)
--- NOTE | 2022-10-14 18:14 | RAD REPORT ---
EXAM DESCRIPTION: CT - Head Brain Wo Cont - 10/14/2022 5:53 pm CLINICAL HISTORY: syncope, head injury COMPARISON: Pelvis Wo Cont dated 10/14/2022; Chest For Pe Angio dated 10/14/2022 TECHNIQUE: Noncontrast head CT images ad were obtained without IV contrast. Multiplanar reformats we re generated and reviewed. All CT scans are performed using dose optimization technique as appropriate and may include automated exposure control or mA/KV adjustment according to patient size. FINDINGS: No intracranial hemorrhage, mass, or edema. Midline structures are unremarkable. Normal ventricular caliber for age. Right basal frontal region of encephalomalacia with volume loss. Dodd-white matter differentiation ot herwise is preserved, without evidence of acute infarct. No abnormal extra-axial fluid collections. Mastoid air cells and visualized portions of the paranasal sinuses are clear. No acute bony findings. IMPRESSION: No evidence of an acute intracranial process. Right basal frontal region of encephalomalacia and volume loss, favor represent sequelae of remote tr auma or ischemia.
--- NOTE | 2022-10-14 18:30 | RAD REPORT ---
EXAM DESCRIPTION: CT - Pelvis Wo Cont - 10/14/2022 5:53 pm CLINICAL HISTORY: fall, pelvic injury COMPARISON: No comparisons TECHNIQUE: Thin cut axial CT imaging of the pelvis was performed without IV contrast. Multiplanar re formats were generated and reviewed. All CT scans are performed using dose optimization technique as appropriate and may include automated exposure control or mA/KV adjustment according to patient size. FINDINGS: No dilated bowel loops or bowel wall thickening. No free air, free fluid or inflammatory s tranding. No hernia, mass or bulky lymphadenopathy. Eovj-qg-pxcyozje atherosclerotic calcifications a long the visualized lower abdominal aorta and its branches The urinary bladder is without significant finding. Prostate is mildly enlarged. No suspicious bony findings for acute fracture. Moderate lower lumbar spine degenerative changes with bilateral pars interarticularis defects at L5 IMPRESSION: No evidence of acute fracture or suspicious osseous lesion of the bony pelvis. No other acute abnormality within the pelvis.
--- NOTE | 2022-10-14 18:57 | RAD REPORT ---
EXAM DESCRIPTION: CT - Chest For Pe Angio - 10/14/2022 5:56 pm CLINICAL HISTORY: syncope, recent cardiac bypass COMPARISON: Thorax Wo Con dated 09/23/2022; Chest Single View dated 10/14/2022 TECHNIQUE: Thin axial CT images of the chest were obtained following administration of 100 mL Isovue 370 IV contrast. Multiplanar reconstructions, and maximum intensity projection reconstructions were generated and reviewed. Exam utilizes a protocol for optimal evaluation of pulmonary arterial tree. All CT scans are performed using dose optimization technique as appropriate and may include automated exposure control or mA/KV adjustment according to patient size. FINDINGS: Pulmonary arteries are normal. No emboli or other suspicious finding. Ascending thoracic aorta is at the upper limit of normal in caliber, 4 centimeter. Some streaky fat s tranding seen in the anterior mediastinum, likely relating to a recent sternotomy. Prosthetic aortic valve in place. No mass or infiltrate in the lung parenchyma. Numerous rounded solid pulmonary nodules are seen bilat erally, largest measuring a millimeter in the right apex, see axial image 108. Additionally, see axia l images 87, 45, 25, and 44. These are probably benign. Trace residual left pleural effusion. No pneu mothorax. No abnormal mediastinal or hilar masses or lymphadenopathy seen. No chest wall mass or abnormal axill iary lymphadenopathy. IMPRESSION: No evidence of acute central pulmonary emboli. Sequelae of recent median sternotomy. Improvement of bilateral pleural effusions and underlying atele ctasis with trace left residual effusion. Incidental pulmonary nodules as above, largest measuring 8 millimeter. These could benefit from a fol low-up CT of the chest in 12 months to ensure stability.
--- NOTE | 2022-10-14 19:46 | ER ---
Nurse's Notes [facility] Name: Monica Gil Age: 82 yrs Sex: Male : 1940 Arrival Date: 10/14/2022 Time: 16:09 Bed 17 Private MD: Diagnosis: Syncope Near Presentation: 10/14 16:36 Chief complaint: Patient states: SYNCOPAL FALL THIS AM AT HOME. Coronavirus screen: At bp this time, the client does not indicate any symptoms associated with coronavirus-19. Ebola Screen: No symptoms or risks identified at this time. Initial Sepsis Screen: Does the patient meet any 2 criteria? No. Patient's initial sepsis screen is negative. Does the patient have a suspected source of infection? No. Patient's initial sepsis screen is negative. Risk Assessment: Do you want to hurt yourself or someone else? Patient reports no desire to harm self or others. Onset of symptoms was October 14, 2022 at 11:00. 16:36 Method Of Arrival: Ambulatory bp 16:36 Acuity: DEXTER 2 bp Triage Assessment: 18:42 General: Appears in no apparent distress. comfortable. db Historical: - Allergies: 16:36 No Known Allergies; bp - PMHx: 16:36 aortic valve stenosis; diabetes mellitus; Hypercholesterolemia; restless leg syndrom; bp - PSHx: 16:36 Coronary artery bypass graft; bp - Immunization history:: Adult Immunizations up to date. - Social history:: Smoking status: Patient denies any tobacco usage or history of. - Family history:: not pertinent. - Hospitalizations: : Patient was recently seen at. Screenin:36 [facility] ED Fall Risk Assessment (Adult) History of falling in the last 3 months, db including since admission Yes- single mechanical fall (1 pt) Confusion or Disorientation No (0 pts) Intoxicated or Sedated No (0 pts) Impaired Gait No (0 pts) Mobility Assist Device Used No (0 pt) Altered Elimination No (0 pt) Score/Fall Risk Level 0 - 2 = Low Risk Oriented to surroundings, Maintained a safe environment. Abuse screen: Denies threats or abuse. Denies injuries from another. Nutritional screening: No deficits noted. Tuberculosis screening: No symptoms or risk factors identified. Assessment: 16:30 Reassessment: Patient appears in no apparent distress at this time. Patient and/or db family updated on plan of care and expected duration. Pain level reassessed. Patient is alert, oriented x 3, equal unlabored respirations, skin warm/dry/pink. fall syncopal episode. Reassessment: recent open heart surgery. General: Appears in no apparent distress. comfortable, Behavior is calm, cooperative. Pain: Denies pain. Neuro: Level of Consciousness is awake, alert, obeys commands, Oriented to person, place, time, situation. 17:30 Reassessment: Patient appears in no apparent distress at this time. Patient and/or db family updated on plan of care and expected duration. Pain level reassessed. Patient is alert, oriented x 3, equal unlabored respirations, skin warm/dry/pink. General: Appears in no apparent distress. comfortable, Behavior is calm, cooperative. 18:43 Reassessment: Patient appears in no apparent distress at this time. Patient and/or db family updated on plan of care and expected duration. Pain level reassessed. Patient is alert, oriented x 3, equal unlabored respirations, skin warm/dry/pink. Patient states feeling better. Patient states symptoms have improved. 21:30 Reassessment: Patient appears in no apparent distress at this time. Patient and/or aa9 family updated on plan of care and expected duration. Pain level reassessed. Patient is alert, oriented x 3, equal unlabored respirations, skin warm/dry/pink. pt c/o lower back pain states, "This bed is really uncomfortable." see MAR for new orders. 21:47 Reassessment: attempted to call report. aaKirstin 21:56 Reassessment: Patient appears in no apparent distress at this time. report provided to [facility]ores Smart. Vital Signs: 16:36 BP 83 / 47; Pulse 57; bp 16:54 BP 87 / 58; Pulse 79; Resp 18; Pulse Ox 100% ; mb9 17:14 BP 94 / 53; Pulse 76; Resp 17; Pulse Ox 98% on R/A; mb9 17:20 BP 104 / 48; Pulse 75; Resp 18; Pulse Ox 95% on R/A; db 17:24 BP 104 / 48; rn 18:00 BP 119 / 58; Pulse 73; Resp 18; Pulse Ox 99% on R/A; db 18:30 BP 120 / 56; Pulse 76; Resp 16; Pulse Ox 97% on R/A; db 18:45 BP 114 / 53; Pulse 76; Resp 18; Pulse Ox 95% on R/A; db 21:29 BP 107 / 72; Pulse 72; Resp 18; Temp 98.5(O); Pulse Ox 99% on R/A; aa9 ED Course: 16:11 Patient arrived in ED. ts1 16:12 Jasvir Pollack MD is Attending Physician. rn 16:30 Radiology exam delayed due to lab results not completed at this time. (BUN/Creatinine) jg10 IV insertion attempt and/or patient not having appropriate IV at this time. 16:36 Triage completed. bp 16:36 Arm band placed on. bp 16:39 Adore Navarrete, RN is Primary Nurse. db 16:40 EKG done, by ED staff, reviewed by Jasvir Pollack MD. mm9 16:41 Patient has correct armband on for positive identification. Fall risk band placed. mm9 Placed in gown. Bed in low position. Side rails up X 1. Adult w/ patient. Warm blanket given. Client placed on continuous cardiac and pulse oximetry monitoring. NIBP monitoring applied. electronic device monitor on. Pulse ox on. NIBP on. 16:46 XRAY Chest (1 view) In Process Unspecified. EDMS 16:54 Basic Metabolic Panel Sent. mb9 16:54 CBC with Diff Sent. mb9 16:54 NT PRO-BNP Sent. mb9 16:54 Troponin HS Sent. mb9 16:54 Inserted saline lock: 22 gauge in right forearm, using aseptic technique. mb9 17:42 Attending Physician role handed off by Jasvir Pollack MD bs3 17:42 Vidal Noyola MD is Attending Physician. bs3 17:55 CT Head Brain wo Cont In Process Unspecified. EDMS 17:55 CT Pelvis wo Cont In Process Unspecified. EDMS 17:58 CT Chest For PE Angio In Process Unspecified. EDMS 19:45 Aldo Pollack MD is Hospitalizing Provider. bs3 21:33 No provider procedures requiring assistance completed. Patient admitted, IV remains in aa9 place. 22:15 [place] notified. Refrence number: [id number]. Authorization number: [id number]. as7 Administered Medications: 16:59 Drug: NS 0.9% IV 500 ml Route: IV; Rate: bolus; Site: right forearm; mb9 21:40 Drug: Acetaminophen PO 650 mg Route: PO; aa9 Medication: 18:57 VIS not applicable for this client. db Outcome: 19:45 Decision to Hospitalize by Provider. bs3 21:33 Admitted to Med/surg accompanied by nurse, room 210, with chart. aa9 21:33 Condition: stable 21:33 Instructed on the need for admit. 22:16 Patient left the ED. aa9 Signatures: Dispatcher [employer] EDMS Jasvir Pollack MD MD rn Peltier, Brian, RN RN Lin Gonzalez RN RN aa9 Vidal Noyola MD MD bs3 Adore Navarrete RN RN Abida Chase Juliet jg10 Breneman, Mary Beth RN RN mb9 Dalila Steele as7 Kaya Fletcher, ARJUN PAS ts1 Corrections: (The following items were deleted from the chart) 21:46 21:44 Reassessment: Patient appears in no apparent distress at this time. Patient aa9 and/or family updated on plan of care and expected duration. Pain level reassessed. Patient is alert, oriented x 3, equal unlabored respirations, skin warm/dry/pink. aa9 21:46 21:46 Reassessment: Patient appears in no apparent distress at this time. aa9 aa9
--- NOTE | 2022-10-14 19:46 | EDPHYS ---
Physician Documentation [facility] Name: Monica Gil Age: 82 yrs Sex: Male : 1940 Arrival Date: 10/14/2022 Time: 16:09 Bed 17 Private MD: ED Physician Vidal Noyola HPI: 10/14 16:31 This 82 yrs old Male presents to ER via Unassigned with complaints of syncope, Fall rn injury after recently having open heart surgery. 16:31 The patient has experienced syncope. Onset: The symptoms/episode began/occurred 5 rn hour(s) ago. Context: the episode(s) was witnessed, by family, occurred at home, occurred while the patient was walking, Just prior to the episode the patient experienced no apparent symptoms. Associated injury: Head/face: Other: right buttocks. Associated signs and symptoms: Pertinent negatives: ataxia, chest pain, confusion, diaphoresis, headache, seizure, shortness of breath, vertigo. Current symptoms: Currently, the patient is not experiencing any symptoms. The patient has not experienced similar symptoms in the past. The patient has been recently seen by a physician:. Pt reports had CABG 2-3 weeks ago, [place], has been doing fine, ambulating/exercising at home doing laps around house. Today was doing his laps, and briefly "passed out". Reports syncopal episode while walking, without preceding warning/chest pain/sob/abd pain/vomiting/diarrhea. Currently feels fine, still without chest pain/sob. Reports slight headache and right buttocks pain from fall. . Historical: - Allergies: 16:36 No Known Allergies; bp - PMHx: 16:36 aortic valve stenosis; diabetes mellitus; Hypercholesterolemia; restless leg syndrom; bp - PSHx: 16:36 Coronary artery bypass graft; bp - Immunization history:: Adult Immunizations up to date. - Social history:: Smoking status: Patient denies any tobacco usage or history of. - Family history:: not pertinent. - Hospitalizations: : Patient was recently seen at. ROS: 16:31 Constitutional: Negative for fever, chills, and weight loss, Eyes: Negative for injury, rn pain, redness, and discharge, Neck: Negative for injury, pain, and swelling, Cardiovascular: Negative for chest pain, palpitations, and edema, Respiratory: Negative for shortness of breath, cough, wheezing, and pleuritic chest pain, Abdomen/GI: Negative for abdominal pain, nausea, vomiting, diarrhea, and constipation, Back: Negative for injury and pain, MS/Extremity: Negative for injury and deformity, Skin: Negative for injury, rash, and discoloration, Neuro: Negative for weakness, numbness, tingling, and seizure. Exam: 16:31 Constitutional: This is a well developed, well nourished patient who is awake, alert, rn and in no acute distress. Head/Face: Normocephalic, atraumatic. Eyes: Pupils equal round and reactive to light, extra-ocular motions intact Neck: NO midline cervical tenderness Chest/axilla: Normal chest wall appearance and motion. No crepitus or rib tenderness, still slightly tender along midline incision Cardiovascular: Regular rate and rhythm. No pulse deficits. Respiratory: No increased work of breathing, no retractions or nasal flaring. Abdomen/GI: Soft, non-tender Back: No spinal tenderness. Skin: Warm, dry MS/ Extremity: Pulses equal, no cyanosis. Neurovascular intact. Full, normal range of motion. Equal circumference. Neuro: Awake and alert, GCS 15, oriented to person, place, time, and situation. Cranial nerves II-XII grossly intact. Motor strength 5/5 in all extremities. Sensory grossly intact. Cerebellar exam normal. Normal gait. Vital Signs: 16:36 BP 83 / 47; Pulse 57; bp 16:54 BP 87 / 58; Pulse 79; Resp 18; Pulse Ox 100% ; mb9 17:14 BP 94 / 53; Pulse 76; Resp 17; Pulse Ox 98% on R/A; mb9 17:20 BP 104 / 48; Pulse 75; Resp 18; Pulse Ox 95% on R/A; db 17:24 BP 104 / 48; rn 18:00 BP 119 / 58; Pulse 73; Resp 18; Pulse Ox 99% on R/A; db 18:30 BP 120 / 56; Pulse 76; Resp 16; Pulse Ox 97% on R/A; db 18:45 BP 114 / 53; Pulse 76; Resp 18; Pulse Ox 95% on R/A; db 21:29 BP 107 / 72; Pulse 72; Resp 18; Temp 98.5(O); Pulse Ox 99% on R/A; aa9 MDM: 16:12 Patient medically screened. rn 17:43 ED course: Patient signed out pending serial exams and CT imaging per signout recommend bs3 observation however if patient has pulmonary embolism or other complication transfer patient well-appearing here on the monitor he has normal sinus at 76 no arrhythmia as interpreted by myself at 5:43 PM. 19:44 ED course: pt reassessed, feeling well, will admit for tele. bs3 19:45 Data reviewed: nurses notes. bs3 10/14 16:27 Order name: Basic Metabolic Panel; Complete Time: 17:15 rn 10/14 16:27 Order name: CBC with Diff; Complete Time: 17:15 rn 10/14 16:27 Order name: NT PRO-BNP; Complete Time: 17:15 rn 10/14 16:27 Order name: Troponin HS; Complete Time: 17:15 rn 10/14 16:27 Order name: XRAY Chest (1 view); Complete Time: 16:54 rn 10/14 16:27 Order name: CT Chest For PE Angio; Complete Time: 19:09 rn 10/14 16:27 Order name: CT Head Brain wo Cont; Complete Time: 18:23 rn 10/14 16:27 Order name: CT Pelvis wo Cont; Complete Time: 19:09 rn 10/14 16:27 Order name: EKG; Complete Time: 16:28 rn 10/14 16:27 Order name: Cardiac monitoring; Complete Time: 16:54 rn 10/14 16:27 Order name: EKG - Nurse/Tech; Complete Time: 16:40 rn 10/14 16:27 Order name: IV Saline Lock; Complete Time: 16:54 rn 10/14 16:27 Order name: Labs collected and sent; Complete Time: 16:54 rn 10/14 16:27 Order name: O2 Per Protocol; Complete Time: 16:54 rn 10/14 16:27 Order name: O2 Sat Monitoring; Complete Time: 16:54 rn Administered Medications: 16:59 Drug: NS 0.9% IV 500 ml Route: IV; Rate: bolus; Site: right forearm; mb9 21:40 Drug: Acetaminophen PO 650 mg Route: PO; aa9 Disposition Summary: 10/14/22 19:45 Hospitalization Ordered Hospitalization Status: Observation bs3 Provider: Aldo Pollack bs3 Location: Telemetry/MedSurg (observation) bs3 Condition: Stable bs3 Problem: new bs3 Symptoms: have improved bs3 Bed/Room Type: Standard bs3 Room Assignment: 210(10/14/22 21:19) lg3 Diagnosis - Syncope Near bs3 Forms: - Medication Reconciliation Form bs3 - SBAR form bs3 Signatures: Dispatcher [employer] EDJasvir Iverson MD MD rn Senthil Pennington, LEAD CASHIER-C LEAD CASHIER-Cla1 Santi Joel RN RN bp Rosi Rodriguez RN RN lg3 Lin Lee RN RN aa9 Vidal Noyola MD MD bs3 Inez Simons RN RN mb9 Corrections: (The following items were deleted from the chart) 21:19 19:45 bs3 lg3
--- NOTE | 2022-10-14 21:07 | P.HP ---
Certification for Inpatient Patient admitted to: Observation With expected LOS: <2 Midnights Patient will require the following post-hospital care: None Practitioner: I am a practitioner with admitting privileges, knowledge of patient current condition, hospital course, and medical plan of care. Services: Services provided to patient in accordance with Admission requirements found in Title 42 Section 412.3 of the Code of Federal Regulations Patient History Date of Service: 10/14/22 Reason for admission: Syncope History of Present Illness: 82-year-old male with history of rkv-ngoxzzf-lcsjigwhw diabetes, CAD, hyperlipidemia who had a CABG, aortic valve replacement earlier this month at [facility] presents to the emergency department with chief complaint of syncope. He reports he was up walking around his house which she does for his daily exercise when he suddenly collapsed in the kitchen. He denies any prodrome for his syncope he lost consciousness and fell to the ground, woke up shortly after falling. His reports seeing him stumble briefly and then fall to the ground. He denies any chest pain, shortness of breath Labs showed creatinine 1.56 GFR 45 glucose 219 initial high-sensitivity opponent 47.7 BNP 1091 hemoglobin 10.[address] was head was negative for acute findings pelvic CT negative for fractures CTA of the chest was also performed which was negative for acute findings but did show numerous rounded solid pulmonary nodules seen bilaterally "probably benign". ED provider wishes to admit under observation for syncope. Given his recent cardiac surgery/valve replacement I also discussed with cardiology recommends admission, observation on telemetry. Allergies No Known Allergies Allergy (Verified 09/23/22 11:06) Home Medications: Atorvastatin Calcium [Lipitor] 80 mg PO BEDTIME 09/23/22 Empagliflozin [Jardiance] 25 mg PO DAILY 09/23/22 Ergocalciferol (Vitamin D2) [Vitamin D2] 50,000 unit PO DIRECTED 09/23/22 Metformin HCl 1,000 mg PO BID 09/23/22 Semaglutide [Ozempic] 0.25 mg SQ DIRECTED 09/23/22 lisinopriL [Lisinopril] 10 mg PO DAILY 09/23/22 - Past Medical/Surgical History Diabetic: Yes -: Type II Diabetes Mellitus -: Hypertension -: Hyperlipidemia -: Restless Leg Syndrome -: CAD -: Aortic valve stenosis-status post repair -: Cholecystectomy -: CABG -: Aortic valve replacement Psychosocial/ Personal History: Patient lives at home with his - Family History Mother -: Hypertension Brother -: Other (see notes) Notes: hypotension - Social History Smoking Status: Never smoker Alcohol use: No CD- Drugs: No Caffeine use: Yes Place of Residence: Home Review of Systems 10-point ROS is otherwise unremarkable Cardiovascular: Other (Syncope) Physical Examination - Physical Exam General: Alert, In no apparent distress, Oriented x3 HEENT: Atraumatic, PERRLA, Mucous membr. moist/pink, EOMI, Sclerae nonicteric Neck: Supple, 2+ carotid pulse no bruit, No LAD, Without JVD or thyroid abnormality Respiratory: Clear to auscultation bilaterally, Normal air movement Cardiovascular: Regular rate/rhythm, Normal S1 S2 Capillary refill: <2 Seconds Gastrointestinal: Normal bowel sounds, No tenderness Musculoskeletal: No tenderness Integumentary: No rashes Neurological: Normal speech, Normal strength at 5/5 x4 extr, Normal tone, Normal affect - Studies Laboratory Data (last 24 hrs) 10/14/22 16:49: WBC 8.80, Hgb 10.9 L, Hct 32.8 L, Plt Count 419 H 10/14/22 16:49: Sodium 137, Potassium 4.1, BUN 30 H, Creatinine 1.56 H, Glucose 219 H Assessment and Plan - Plan Assessment: Syncope-recent CABG/aortic valve replacement Diabetes mellitus type 6tkl-gcmzwcr-widjjjsng with hyperglycemia Hyperlipidemia Plan: Syncope-recent CABG/aortic valve replacement Monitor on telemetry, cardiology consult in place. Trend troponins. Patient denies chest pain, shortness of breath at this time. Diabetes mellitus type 2xqp-qqjvdxk-hzngqduif with hyperglycemia ACHS Accu-Chek, sliding scale insulin. Hyperlipidemia Continue statin. DVT PPX: Lovenox Code status: Full Discharge Plan: Home Plan to discharge in: 24 Hours - Advance Directives Does patient have a Living Will: No Does patient have a Durable POA for Healthcare: No - Code Status/Comfort Care Code Status Assessed: Yes (Full code) Critical Care: No Time Spent Managing Pts Care (In Minutes): 55
[2022-10-14] MEDS ORDERED: ATORVASTATIN 40 MG TAB PO SCH (21:34)
[2022-10-14] MEDS ORDERED: ONDANSETRON 4 MG/2 ML VIAL IV PRN (21:34)
[2022-10-14] MEDS ORDERED: ACETAMINOPHEN 325 MG TABLET ONE (21:46)
[2022-10-14 22:15] VITALS: BMI 26.5
[2022-10-14] MEDS: INSULIN -REGULAR HUMAN 50 UNIT/0.5 ML ML SQ SCH (22:54)
[2022-10-14 23:01] VITALS: O2SAT 99
[2022-10-15] MEDS ORDERED: ACETAMINOPHEN 325 MG TABLET PO PRN (00:33)
[2022-10-15 02:57] LABS: Absolute Lymphocytes (CBC) 1.3 K/uL (0.7-4.9); Hematocrit 31.6 % (39.6-49.0); Lymphocytes % 15.2 % (15.3-44.8); MCV 92.4 fL (80-100); MPV 7.6 fL (7.6-11.3); RBC Red Blood Cell Count 3.42 M/uL (4.33-5.43)
[2022-10-15 03:18] LABS: Magnesium 2.1 mg/dL (1.6-2.4); Potassium 3.9 mEq/L (3.5-5.1); Thyroid Stimulating Hormone 9.7 uIU/mL (0.358-3.740)
[2022-10-15] MEDS ORDERED: HYDROCODONE/APAP 5/325 MG TAB PO ONE (05:15)
[2022-10-15 05:16] VITALS: TEMP 97.5
--- NOTE | 2022-10-15 07:04 | P.PN ---
Date of Service: 10/15/22 Subjective: ROS: 10 point ROS as noted above, otherwise negative Physical Exam: GEN: Alert, oriented, NAD HEENT: Normal conjunctiva, sclera anicteric CV: Regular rate and rhythm, no edema Pulm: Nonlabored respirations on room air ABD: Soft, nontender, nondistended MSK: No joint tenderness Integumentary: No rashes Neuro: Normal speech, normal affect vitals reviewed Problem List: Syncope-recent CABG/aortic valve replacement NIDDM2 with hyperglycemia Hyperlipidemia Syncope-recent CABG/aortic valve replacement CXR (10/14): negative CT head (10/14): negative CT pelvis (10/14): negative for fractures CTA chest (10/14): negative for acute findings but did show numerous rounded solid pulmonary nodules seen bilaterally "probably benign" discussed these with patient and his , recommended repeat CT in 12 months for reassessment. Trend troponins. Monitor on telemetry cardiology consulted PT consult Diabetes mellitus type 2itn-wilsubz-vwephlzqf with hyperglycemia ACHS Accu-Chek, sliding scale insulin Hyperlipidemia Continue statin VTE: Lovenox Code: Full Dispo: Home 24 hrs
[2022-10-15] MEDS: INSULIN -REGULAR HUMAN 50 UNIT/0.5 ML ML SQ SCH (07:30)
[2022-10-15 08:27] VITALS: BP 107/55
--- NOTE | 2022-10-15 08:44 | P.DS ---
Admission Date: 10/14/22 Discharge Date: 10/15/22 Reason for Admission: Syncope Consultations: Cardiology - Dr. Newby Brief History of Present Illness: 82yo M, PMH: xhy-gahruiz-txgeelrga diabetes, CAD, hyperlipidemia who had a CABG, aortic valve replacement earlier this month at [facility] presents to the emergency department with chief complaint of syncope. He reports he was up walking around his house which she does for his daily exercise when he suddenly collapsed in the kitchen. He denies any prodrome for his syncope he lost consciousness and fell to the ground, woke up shortly after falling. His reports seeing him stumble briefly and then fall to the ground. He denies any chest pain, shortness of breath Labs showed creatinine 1.56 GFR 45 glucose 219 initial high-sensitivity opponent 47.7 BNP 1091 hemoglobin 10.[address] was head was negative for acute findings pelvic CT negative for fractures CTA of the chest was also performed which was negative for acute findings but did show numerous rounded solid pulmonary nodules seen bilaterally "probably benign". ED provider wishes to admit under observation for syncope. Given his recent cardiac surgery/valve replacement I also discussed with cardiology recommends admission, observation on telemetry. Hospital Course: Problem List: Syncope-recent CABG/aortic valve replacement NIDDM2 with hyperglycemia Hyperlipidemia Patient presented with syncope. Troponins were negative. Imaging was negative for any acute findings. Incidentally CTA head indicated "numerous rounded solid pulmonary nodules seen bilaterally 'probably benign'". Results were discussed with patient and his , and recommended repeat CT in 12 months for reassessment. Cardiology was consulted and felt this was most consistent with orthostasis. Patient presented with hypotension and a mild JOSE ARMANDO. Both improved/resolved with IV hydration. Dr. Newby recommended discontinuation of lisinopril for now. He was monitored overnight, was feeling back to his normal self, not in pain chest pain or shortness of breath, and was deemed stable for discharge. New/Change in prescriptions: hold off on taking lisinopril for now until f/u with Cardiology for further recommendations Follow up: PCP 3-5 days Cardiology within ~1-2 weeks Physical Exam: GEN: Alert, oriented, NAD HEENT: Normal conjunctiva, sclera anicteric CV: Regular rate and rhythm, no edema Pulm: Nonlabored respirations on room air ABD: Soft, nontender, nondistended MSK: No joint tenderness Integumentary: No rashes Neuro: Normal speech, normal affect Vital Signs/Physical Exam: Temp Pulse Resp BP Pulse Ox 97.5 F 79 16 107/55 L 96 10/15/22 08:00 10/15/22 08:00 10/15/22 08:00 10/15/22 08:00 10/15/22 08:00 Laboratory Data at Discharge: WBC 8.40 thou/uL (4.3-10.9) 10/15/22 02:37 Hgb 10.7 g/dL (13.6-17.9) L 10/15/22 02:37 Hct 31.6 % (39.6-49.0) L 10/15/22 02:37 Plt Count 365 thou/uL (152-406) 10/15/22 02:37 Sodium 139 mEq/L (136-145) 10/15/22 02:37 Potassium 3.9 mEq/L (3.5-5.1) 10/15/22 02:37 BUN 26 mg/dL (7-18) H 10/15/22 02:37 Creatinine 1.36 mg/dL (0.70-1.30) H 10/15/22 02:37 Glucose 175 mg/dL (74-106) H 10/15/22 02:37 Magnesium 2.1 mg/dL (1.6-2.4) 10/15/22 02:37 Home Medications: Atorvastatin Calcium [Lipitor] 80 mg PO BEDTIME 09/23/22 Empagliflozin [Jardiance] 25 mg PO DAILY 09/23/22 Metformin HCl 500 mg PO BID 09/23/22 lisinopriL [Lisinopril] 10 mg PO DAILY 09/23/22 Alogliptin Benzoate [Alogliptin] 25 mg PO DAILY 10/15/22 Amiodarone HCl [Pacerone] 200 mg PO TID 10/15/22 Aspirin [Aspirin EC 81 MG] 81 mg PO DAILY 10/15/22 Clopidogrel Bisulfate [Plavix] 75 mg PO DAILY 10/15/22 Metoprolol Tartrate 25 mg PO BID 10/15/22 Zinc Sulfate [Zinc Sulfate*] 220 mg PO DAILY 10/15/22 Physician Discharge Instructions: Patient presented with syncope. Troponins were negative. Imaging was negative for any acute findings. Incidentally CTA head indicated "numerous rounded solid pulmonary nodules seen bilaterally 'probably benign'". Results were discussed with patient and his , and recommended repeat CT in 12 months for reassessment. Cardiology was consulted and felt this was most consistent with orthostasis. Patient presented with hypotension and a mild JOSE ARMANDO. Both improved/resolved with IV hydration. Dr. Newby recommended discontinuation of lisinopril for now. He was monitored overnight, was feeling back to his normal self, not in pain chest pain or shortness of breath, and was deemed stable for discharge. New/Change in prescriptions: hold off on taking lisinopril for now until f/u with Cardiology for further recommendations Follow up: PCP 3-5 days Cardiology within ~1-2 weeks Followup: Unknown,U [Primary Care Provider] - 1-2 Weeks Time spent managing pt's care (in minutes): 45
[2022-10-15] MEDS ORDERED: ASPIRIN EC 81 MG TAB PO SCH (09:00)
[2022-10-15] MEDS ORDERED: ENOXAPARIN 40 MG/0.4 ML SQ SCH (09:00)
--- NOTE | 2022-10-15 09:00 | CON ---
Date of Consultation: 10/15/2022 Reason For Consultation: Presyncope. History Of Present Illness: Mr. Gil is 82. Patient had a history of CABG and aortic valve repla cement, bioprosthetic. He has a history of diabetes, dyslipidemia. [facility] He still has stitches. His lower abdomen with chest tubes in. He does take Lipito r, Jardiance, metformin, lisinopril, and Ozempic at home yesterday. He got up and walked around and got dizzy and lightheaded and was presyncopal when he came to the emergency room. He was hypotensive . His creatinine is 1.56. He was dehydrated. Today's creatinine is 1.36. All of this is consisten t with orthostatic hypotension. Never had any chest pain, palpitations, fever, or chills. Past Medical History: As stated above. Allergies: NONE. Review of Systems: Negative. Social History: Negative. Family History: Negative. Medications: Listed earlier. Physical Examination: Vital Signs: Stable. Afebrile. HEENT: Negative. Neck: Supple. No bruit. Chest: Revealed clear lungs. Cardiac: Revealed a regular rhythm and rate. No murmurs, gallops, or rubs. Abdomen: Benign. Extremities: Revealed no clubbing, cyanosis, or edema. Diagnostic Data: Glucose was 175. EKG is nonspecific. Chest x-ray is negative. Impression And Plan: The patient is status post recent aortic valve replacement and coronary artery bypass graft. Stitches will be removed today from his abdominal wall. His syncope was secondary to orthostatic hypotension. He will go home today. He will hold his lisinopril. Continue his Lipitor and diabetic medication. His diabetes is fairly well controlled so is his dyslipidemia. We will see him in the office soon. I will have him do an outpatient event monitor to rule out arrhythmia. Vladimir santiago was discussed with Dr. Pollack. NB/MODL Voice ID: [id number] Report ID: [id number]
--- NOTE | 2022-10-16 07:30 | EKG ---
Test Date: 2022-10-14 Test Time: 16:44:47 Distributor Advertising Material: TATE MEASUREMENT RESULTS: Intervals: Rate: 79 WA: 248 QRSD: 174 QT: 492 QTc: 564 [place]: P: 56 WA: 248 QRS: -28 T: 122 INTERPRETIVE STATEMENTS: Sinus rhythm with 1st degree AV block Nonspecific intraventricular block Abnormal ECG Compared to ECG 09/23/2022 09:09:54 First degree AV block now present Atrial premature complex(es) no longer present Left-axis deviation no longer present Left ventricular hypertrophy no longer present Myocardial infarct finding no longer present ST (T wave) deviation no longer present Possible ischemia no longer present Electronically Signed On 10-16-22 07:25:41 CDT by Zay Newby
== END 2022-10-15 10:30 | disposition home health service (06) ==
LOC: ER 16:09 → ERHOLD 20:40 → 2ND 21:30
PROVIDERS: ADMIT Hospitalist; ATTEND Hospitalist
DX: I95.1 Orthostatic hypotension (principal); E11.65 Type 2 diabetes mellitus with hyperglycemia; N17.9 Acute kidney failure, unspecified; E86.0 Dehydration; R91.8 Other nonspecific abnormal finding of lung field; E78.5 Hyperlipidemia, unspecified; I25.10 Atherosclerotic heart disease of native coronary artery without angina pectoris; I10 Essential (primary) hypertension; G25.81 Restless legs syndrome; Z98.890 Other specified postprocedural states; Z95.1 Presence of aortocoronary bypass graft; Z95.2 Presence of prosthetic heart valve; Z79.84 Long term (current) use of oral hypoglycemic drugs; Z79.85 Long-term (current) use of injectable non-insulin antidiabetic drugs; Z79.899 Other long term (current) drug therapy; Z90.49 Acquired absence of other specified parts of digestive tract; Z82.49 Family history of ischemic heart disease and other diseases of the circulatory system
CPT/HCPCS: 93005; 85025 ×2; 80048 ×2; 36415; 83735; 82947 ×2; 84443; 84484 ×3; 84439; 83880; 70450; 72192; 71275; 71045; 99285; Q9967; J1815; J1650; J7040; G0378 ×3

== ENCOUNTER 2022-12-08 07:09 | Inpatient (IN) | payer OTHER ==
--- OUTSIDE RECORDS SUMMARY | 2022-12-08 07:18 | XMS REPORT | Continuity of Care Document ---
:[address] [facility] t Address [address] [place] [address] [place] [address] Care Team Providers Name Role [facility] Primary Care Physician Kathya Maria Attending Clinician Unavailable RADIOLOGY Attending Clinician Unavailable Radiology Attending Clinician Unavailable Kathya Maria Admitting Clinician Unavailable Payers Payer Name Policy Type Policy Number Effective Date Expiration Date S [facility] [id number] 2022 00:00:00 Problems This patient has no known problems. Allergies, Adverse Reactions, Alerts Allergy Allergy Status Severity Reaction(s) Onset Inactive Treating Comm ents Source Name Type Date Date Clinician No Known DA Active U [facility] Allergie 09-24 Clear s 00:00: [place] 00 [facility] NO KNOWN Drug Active Univers ALLERGIE Class ity [facility] Social History Social Habit Start Date Stop Date Quantity Comments Source Gender identity [facility] Sexual orientation [facility] Sex Assigned At [birth year] Uni versity [facility] 00:00:00 00:00:00 Medical Branch Smoking Status Start Date Stop Date Source Tobacco smoking consumption [facility] Medications Ordered Filled Start Stop Current Ordering Indication Dosage Frequency Signature Comments Components Source Medication Medication Date Date Medication? Clinician (SIG) Name Name gadoteridol 2022- No [id number] .2mL/kg 0.2 mL/kg, Univers (PROHANCE-2 12-07 Intravenou i ty of 0 mL) 22:15: 22:13 s, ONCE, 1 [place] injection 00 :00 dose, On Medica l 0.2 mL/kg Wed Branch 12/07/22 at 1715, Routine Procedures Procedure Date / Time Performing Clinician Source Performed NO SHOW OR MISSED 2022-12-07 20:48:49 Doctor Unassigned, [facility] APPOINTMENT POLICY [facility] ACKNOWLEDGEMENT [facility] PATIENT FINANCIAL 2022-12-07 20:47:29 Doctor Unassigned, Un [facility] POLICY [facility] NOTICE OF PRIVACY 2022-12-07 20:46:52 Doctor Unassigned, [facility] PRACTICES [facility] ASSIGNMENT OF BENEFITS 2022-12-07 20:46:20 Doctor Unassigned, Un [facility] CONSENT/REFUSAL FOR 2022-12-07 20:45:25 Doctor Unassigned, [facility] DIAGNOSIS AND TREATMENT [facility] [id number] 2022-09-26 00:00:00 CHAAB.01 [facility] [id number] 2022-09-26 00:00:00 CHAAB.01 [facility] [id number] 2022-09-26 00:00:00 CHAAB.01 [facility] [id number] 2022-09-26 00:00:00 CHAAB.01 [facility] [id number] 2022-09-26 00:00:00 CHAAB.01 [facility] [id number] 2022-09-26 00:00:00 CHAAB.01 [facility] [id number] 2022-09-26 00:00:00 CHAAB.01 [facility] [id number] 2022-09-26 00:00:00 CHAAB.01 [facility] [id number] 2022-09-26 00:00:00 CHAAB.01 [facility] Encounters Start End Encounter Admission Attending Care Care Encounter Source Date/Time Date/Time Type Type Clinicians Facility Department ID 2022-09-23 Inpatient UMAIR MariaCL [id number] [facility] 18:45:00 Neeru 09 [facility] 2022-12-07 2022-12-07 Outpatient R RADIOLOGY [facility] [id number] Univers 15:47:22 23:59:00 ity of [facility] 2022-12-07 2022-12-07 Hospital Radiology [facility] [id number] Univers 15:47:22 23:59:00 Encounter [place] [id number] ity [facility] [id number] [facility] [id number] [facility] 804 Branch 2022-09-24 2022-10-05 Inpatient UR UMAIR Maria INTE.02 [id number] [facility] 00:53:00 15:39:00 Neeru 26 [facility] Results Test Description Test Time Test Comments Results Result Comments Source GLUCOSE BEDSIDE 2022-10-05 12:09:00 Test Item Value Reference Range Interpretation Comme nts GLUCOSE BEDSIDE (test code = 245 MG/DL 70-110 H Performed by certified radiotelephone technical operator at [facility] CBC W/AUTO [id number] 07:39:00 Test Item Value Reference Range Interpretation [...] (test code NO = MDIFF) BASIC METABOLIC [id number] 07:35:00 Test Item Value Reference Range Interpretation [...] code = 8.9 mg/dL 8.0-10.5 N CA) [id number] 07:35:00 Test Item Value Reference Range Interpretation Comments MAGNESIUM (test code = MAG) 1.85 mg/dL 1.80-2.40 GLUCOSE [id number] 06:08:00 Test Item Value Reference Range Interpretation Comments GLUCOSE BEDSIDE (test 123 MG/DL 70-110 H Perfor med by certified code = GLUBED) radiotelephone technical operator at [facility] GLUCOSE [id number] 00:14:00 Test Item Value Reference Range Interpretation Comments GLUCOSE BEDSIDE (test 143 MG/DL 70-110 H Perfor med by certified code = GLUBED) radiotelephone technical operator at [facility] - DUP VEIN [id number] 00:00:00 [facility] : 1940 Sex: M Name: MONICA BECK [facility] [place] : 1940 Age/S: 82 / M [address] [place] [address] Unit #: [id number] Loc: [place] [address] Phys: Analilia Erwin Acct: [id number] Dis Date: Status: ADM IN PHONE #: [phone] Exam Date: 10/05/2022 100 FAX #: [phone] Reason: R/O DVT EXAMS: CPT CODE: [id number] DUP VEIN AILEEN 72775 PROCEDURE INFORMATION: Exam: US Duplex Lower Extremity [...] on the lower extremity veins. COMPARISON: US DUPVEIN AILEEN 09/24/2022 1:43 PM FINDINGS: Right deep veins: Unremarkable. The common femoral, femoral, pro ximal profunda femoral and popliteal veins are patent without thrombus. Normal Doppler waveforms. Normal compressibility and/or augmentation response. Right superficial veins: Saphenofemoral junction is patent without thrombus. Left deep veins: Unremarkable. The common femoral, femoral, proximal profunda femoral and popliteal veins are patent without thrombus. Normal Doppler waveforms. Normal compressibility and/or augmentation response. Left superficial veins: Saphenofemoral junction is patent without thrombus. Soft tissues: Unremarkable. IMPRESSION: No evidence of deep vein thrombosis. at 1113 Reported and signed by: Jim Farias M.D. CC: Kathya Maria MD; Analilia Erwin Technologist: Danna Fuentes RDMS(BR)(AB) Trnscb Date/Time: 10/05/2022 (1113) [email or web address] Orig Print D/T: S: 10/05/2022 (1113) Probe: PAGE 1 Signed Report- XR CHEST 1 [id number] 00:00:00 [facility] [place] : 1940 Sex: M FAX: Kathya Hassan [phone] [place]: St: ADM Name: KIRANMONICA [facility] : 1940 Age/S: 82/M [address] [place] [address] Unit #: [id number] Loc: G.[address] [place] [address] Phys: Kathya Maria MD Acct: [id number] Dis Date: Status: ADM IN PHONE #: [phone] Exam Date: 10/05/2022558 FAX #: [phone] Reason: Post CV Surgery EXAMS: CPT CODE: [id number] XR CHEST 1 V 87092 PROCEDURE INFORMATION: Exam: XR Chest Exam date [...] Martinez M.D. CC: Kathya Maria MD Technologist: RT Twin(R) Trnscrd Date/Time/By: 10/05/2022 (802) : By: [email or web address] Orig Print D/T: S: 10/05/2022 (802) PAGE 1 Signed ReportGLUCOSE [id number] 20:40:00 Test Item Value Reference Range Interpretation Comments GLUCOSE BEDSIDE (test 218 MG/DL 70-110 H Perfor med by certified code = GLUBED) radiotelephone technical operator at [facility] GLUCOSE [id number] 17:28:00 Test Item Value Reference Range Interpretation Comments GLUCOSE BEDSIDE (test 223 MG/DL 70-110 H Perfor med by certified code = GLUBED) radiotelephone technical operator at [facility] GLUCOSE [id number] 11:55:00 Test Item Value Reference Range Interpretation Comments GLUCOSE BEDSIDE (test 215 MG/DL 70-110 H Perfor med by certified code = GLUBED) radiotelephone technical operator at [facility] GLUCOSE [id number] 06:10:00 Test Item Value Reference Range Interpretation Comments GLUCOSE BEDSIDE (test 198 MG/DL 70-110 H Perfor med by certified code = GLUBED) radiotelephone technical operator at [facility] BASIC METABOLIC [id number] 05:45:00 Test Item Value Reference Range Interpretation [...] code = 8.9 mg/dL 8.0-10.5 N CA) [id number] 05:45:00 Test Item Value Reference Range Interpretation Comments MAGNESIUM (test code = MAG) 1.56 mg/dL 1.80-2.40 L CBC W/AUTO [id number] 05:30:00 Test Item Value Reference Range Interpretation [...] REQUIRED (test code NO = MDIFF) GLUCOSE [id number] 01:24:00 Test Item Value Reference Range Interpretation Comments GLUCOSE BEDSIDE (test 161 MG/DL 70-110 H Perfor med by certified code = GLUBED) radiotelephone technical operator at [facility] GLUCOSE [id number] 22:10:00 Test Item Value Reference Range Interpretation Comments GLUCOSE BEDSIDE (test 102 MG/DL 70-110 N Perfor med by certified code = GLUBED) radiotelephone technical operator at [facility] GLUCOSE [id number] 16:51:00 Test Item Value Reference Range Interpretation Comments GLUCOSE BEDSIDE (test 218 MG/DL 70-110 H Perfor med by certified code = GLUBED) radiotelephone technical operator at [facility] HEPATIC FUNCTION [id number] 07:35:00 Test Item Value Reference Range Interpretation [...] IUnit/L 20-125 N code = ALKP) GLUCOSE [id number] 06:44:00 Test Item Value Reference Range Interpretation Comments GLUCOSE BEDSIDE (test 175 MG/DL 70-110 H Perfor med by certified code = GLUBED) radiotelephone technical operator at [facility] BASIC METABOLIC [id number] 03:45:00 Test Item Value Reference Range Interpretation [...] the recommended for philipp for [facility]by the [facility] on for Adults.The GFR will not calculate if th e sex is unknown or if thepatient's ag e is <18 years. CREATININE (test 1.0 mg/dL 0.6-1.3 N code = CREAT) CALCIUM (test code = 9.0 mg/dL 8.0-10.5 N CA) [id number] 03:45:00 Test Item Value Reference Range Interpretation Comments MAGNESIUM (test code = MAG) 1.69 mg/dL 1.80-2.40 L CBC W/AUTO [id number] 03:41:00 Test Item Value Reference Range Interpretation [...] REQUIRED (test code NO = MDIFF) GLUCOSE [id number] 00:57:00 Test Item Value Reference Range Interpretation Comments GLUCOSE BEDSIDE (test 160 MG/DL 70-110 H Perfor med by certified code = GLUBED) radiotelephone technical operator at [facility] - XR CHEST 1 [id number] 00:00:00 [facility] 1940 Sex: M FAX: Kathya Hassan [phone] [place]: St: ADM FAX: Sade Erwin MD [phone] Name: MONICA BECK [facility] [place] : 1940 Age/S: 82/M [address] [place] [address] Blvd Unit #: [id number] Loc: [address] [address] Phys: Sade Arana MD Acct: [id number] Dis Date: Status: ADM IN PHONE #: [phone] Exam Date: 10/03/2022519 FAX #: [phone] Reason: POST CABG/AVR, DAILY EVAL EXAMS: CPT CODE: [id number] XR CHEST 1 V 54329 PROCEDURE INFORMATION: Exam: XR Chest Exam date [...] Pleural spaces: Small pleural effusions could be present.No definite pneumothorax. Heart/Mediastinum: Stable heart size. Aortic valve replacement. Vasculature: Atherosclerotic calcifications. Bones/joints: Stable. Median sternotomy wires. IMPRESSION: New mild bilateral interstitial opacities, possibly mild volume overload. New nonspecific left retrocardiac/basilar opacities. at 0716 Reported and signed by: Greg Britton M.D. CC: Kathya Maria MD; Sade Arana MD Technologist: Susana Santos RT(R) Trnscrd Date/Time/By: 10/03/2022 (0716) : By: [email or web address] Orig Print D/T: S: 10/03/2022 (0716) PAGE 1 Signed ReportGLUCOSE [id number] 18:21:00 Test Item Value Reference Range Interpretation Comments GLUCOSE BEDSIDE (test 151 MG/DL 70-110 H Perfor med by certified code = GLUBED) radiotelephone technical operator at [facility] GLUCOSE [id number] 12:02:00 Test Item Value Reference Range Interpretation Comments GLUCOSE BEDSIDE (test 293 MG/DL 70-110 H Perfor med by certified code = GLUBED) radiotelephone technical operator at [facility] GLUCOSE [id number] 08:04:00 Test Item Value Reference Range Interpretation Comments GLUCOSE BEDSIDE (test 149 MG/DL 70-110 H Perfor med by certified code = GLUBED) radiotelephone technical operator at [facility] GLUCOSE [id number] 06:44:00 Test Item Value Reference Range Interpretation Comments GLUCOSE BEDSIDE (test 137 MG/DL 70-110 H Perfor med by certified code = GLUBED) radiotelephone technical operator at [facility] BASIC METABOLIC [id number] 03:55:00 Test Item Value Reference Range Interpretation [...] the recommended for philipp for G[facility]by the [facility] for Adults.The GFR will not calculate if th e sex is unknown or if thepatient's ag e is <18 years. CREATININE (test 1.1 mg/dL 0.6-1.3 N code = CREAT) CALCIUM (test code = 9.1 mg/dL 8.0-10.5 N CA) HEPATIC FUNCTION [id number] 03:55:00 Test Item Value Reference Range Interpretation [...] 89 IUnit/L 20-125 N code = ALKP) [id number] 03:55:00 Test Item Value Reference Range Interpretation Comments MAGNESIUM (test code = MAG) 1.90 mg/dL 1.80-2.40 N CBC W/AUTO [id number] 03:50:00 Test Item Value Reference Range Interpretation [...] REQUIRED (test code NO = MDIFF) GLUCOSE [id number] 00:22:00 Test Item Value Reference Range Interpretation Comments GLUCOSE BEDSIDE (test 223 MG/DL 70-110 H Perfor med by certified code = GLUBED) radiotelephone technical operator at [facility] - XR CHEST 1 [id number] 00:00:00 [facility] : 1940 Sex: M FAX: Kathya Hassan [phone] [place]: St: ADM FAX: Analilia Crowell [facility] [phone] Name: MONICA BECK [facility] : 1940 Age/S: 82/M [address] [place] [address] Unit #: [id number] Loc: G.[address] [place] [address] Phys: Analilia Erwin Physic Acct: [id number] Dis Date: Status: ADM IN PHONE #: [phone] Exam Date: 10/02/2022739 FAX #: [phone] Reason: Cardiac Surgery Post Op EXAMS: CPT CODE: [id number] XR CHEST 1 V 84003 PROCEDURE INFORMATION: Exam: XR Chest Exam date [...] clips suggesting prior CABG. Bones/joints: Stable. IMPRESSION: Lungs slightly improved. at 0828 Reported and signed by: Varghese Johns M.D. CC: Kathya Maria MD; Analilia Erwin Technologist: Jacob Fernandes Trnscrd Date/Time/By: 10/02/2022 (08) : By: [email or web address] Orig Print D/T: S: 10/02/2022 (0890) PAGE 1 Signed ReportGLUCOSE [id number] 21:11:00 Test Item Value Reference Range Interpretation Comments GLUCOSE BEDSIDE (test 166 MG/DL 70-110 H Perfor med by certified code = GLUBED) radiotelephone technical operator at [facility] GLUCOSE [id number] 17:30:00 Test Item Value Reference Range Interpretation Comments GLUCOSE BEDSIDE (test 163 MG/DL 70-110 H Perfor med by certified code = GLUBED) radiotelephone technical operator at [facility] GLUCOSE [id number] 12:28:00 Test Item Value Reference Range Interpretation Comments GLUCOSE BEDSIDE (test 205 MG/DL 70-110 H Perfor med by certified code = GLUBED) radiotelephone technical operator at [facility] GLUCOSE [id number] 08:08:00 Test Item Value Reference Range Interpretation Comments GLUCOSE BEDSIDE (test 149 MG/DL 70-110 H Perfor med by certified code = GLUBED) radiotelephone technical operator at [facility] CBC W/AUTO [id number] 05:18:00 Test Item Value Reference Range Interpretation [...] (test code NO = MDIFF) BASIC METABOLIC [id number] 04:53:00 Test Item Value Reference Range Interpretation [...] 8.7 mg/dL 8.0-10.5 N CA) HEPATIC FUNCTION [id number] 04:53:00 Test Item Value Reference Range Interpretation [...] 75 IUnit/L 20-125 N code = ALKP) [id number] 04:53:00 Test Item Value Reference Range Interpretation Comments MAGNESIUM (test code = MAG) 1.93 mg/dL 1.80-2.40 N - XR CHEST 1 [id number] 00:00:00 [facility] : 1940 Sex: M FAX: Kathya Hassan [phone] [place]: St: [facility] FAX: Analilia Crowell [facility] [phone] Name: MONICA BECK [facility] : 1940 Age/S: 82/M [address] [place] [address] Unit #: [id number] Loc: G.[address] [place] [address] Phys: Analilia Erwin Physic Acct: [id number] Dis Date: Status: ADM IN PHONE #: [phone] Exam Date: 10/01/2022729 FAX #: [phone] Reason: Cardiac Surgery Post Op EXAMS: CPT CODE: [id number] XR CHEST 1 V 95443 PROCEDURE INFORMATION: Exam: XR Chest Exam date and time:10/01/2022 5:40 AM Age: 82 years old Clinical indication: Other: Cardiac surgery post op TECHNIQUE: Imaging protocol: Radiologic exam of the chest. Views: 1 view. COMPARISON: CR XR CHEST 1V 09/30/2022 5:48 AM FINDINGS: Tubes, catheters and devices: Removal of mediastinum to left-sided drainage catheter.Surgical clips overlie the mediastinum. Removal of right [...] S: 10/01/2022 (0811) PAGE 1 Signed ReportGLUCOSE [id number] 21:12:00 Test Item Value Reference Range Interpretation Comments GLUCOSE BEDSIDE (test 153 MG/DL 70-110 H Perfor med by certified code = GLUBED) radiotelephone technical operator at [facility] GLUCOSE [id number] 16:44:00 Test Item Value Reference Range Interpretation Comments GLUCOSE BEDSIDE (test 166 MG/DL 70-110 H Perfor med by certified code = GLUBED) radiotelephone technical operator at [facility] GLUCOSE [id number] 12:02:00 Test Item Value Reference Range Interpretation Comments GLUCOSE BEDSIDE (test 219 MG/DL 70-110 H Perfor med by certified code = GLUBED) radiotelephone technical operator at [facility] CBC W/AUTO [id number] 09:24:00 Test Item Value Reference Range Interpretation [...] REQUIRED (test code NO = MDIFF) PLT [id number] 09:24:00 Test Item Value Reference Range Interpretation Comments PLATELET ESTIMATE (test code = THOUSAND ADEQUATE PLTEST) GLUCOSE [id number] 06:50:00 Test Item Value Reference Range Interpretation Comments GLUCOSE BEDSIDE (test 197 MG/DL 70-110 H [facility] med by certified code = GLUBED) radiotelephone technical operator at [facility] BASIC METABOLIC [id number] 03:30:00 Test Item Value Reference Range Interpretation [...] the recommended for philipp for GFRby the [facility] Kidney Foundati on for Adults.The GFR will not calculate if th e sex is unknown or if thepatient's ag e is <18 years. CREATININE (test 1.3 mg/dL 0.6-1.3 N code = CREAT) CALCIUM (test code = 8.7 mg/dL 8.0-10.5 N CA) HEPATIC FUNCTION [id number] 03:30:00 Test Item Value Reference Range Interpretation [...] 56 IUnit/L 20-125 N code = ALKP) [id number] 03:30:00 Test Item Value Reference Range Interpretation Comments MAGNESIUM (test code = MAG) 2.11 mg/dL 1.80-2.40 N - XR CHEST 1 [id number] 00:00:00 [facility] : 1940 Sex: M FAX: Kathya Hassan [phone] [place]: St: ADM FAX: Analilia Crowell [facility] [phone] Name: BECK,MONICA VALENTE [facility] : 1940 Age/S: 82/M [address] [place] [address] Unit #: [id number] Loc: [place] [address] Phys: Analilia Erwin Physic Acct: [id number] Dis Date: Status: ADM IN PHONE #: [phone] Exam Date: 09/30/2022721 FAX #: [phone] Reason: Cardiac Surgery Post Op EXAMS: CPT CODE: [id number] XR CHEST 1 V 26383 PROCEDURE INFORMATION: Exam: XR Chest Exam date and time: 09/30/2022 5:48 AM Age: 82 years old Clinical indication: Other: Cardiac surgery post op TECHNIQUE: Imaging protocol: Radiologic exam of the chest. Views: 1 view. COMPARISON: CR XR CHEST 1V 09/29/2022 5:02 AM FINDINGS: Tubes, catheters and devices: Support lines and tubes unchanged and in appropriate position. Lungs: Bilateral lung opacities have not significantly changed when allowing for differencesin technique. Pleural spaces: No pneumothorax. Questionable left pleural effusion. Heart/Mediastinum: The heart size is stable. 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 Bones/joints: Stable. IMPRESSION: No significant change when allowing for differences in technique. at 1422 Reported and signedby: Varghese Johns M.D. CC: Kathya Maria MD; Analilia Hinesyer Technologist: RT Marielle(Darin) Trnscrd Date/Time/By: 09/30/2022 (8722) : By: [email or web address] Orig Print D/T: S: 09/30/2022 (142) PAGE 1 Signed ReportGLUCOSE [id number] 23:57:00 Test Item Value Reference Range Interpretation Comments GLUCOSE BEDSIDE (test 192 MG/DL 70-110 H [facility] med by certified code = GLUBED) radiotelephone technical operator at [facility] RENAL FUNCTION [id number] 18:03:00 Test Item Value Reference Range Interpretation [...] the recommended for philipp for GFRby the [facility] Kidney Foundati on for Adults.The GFR will not calculate if th e sex is unknown or if thepatient's ag e is <18 years. CREATININE (test code 1.5 mg/dL 0.6-1.3 H = CREAT) ALBUMIN (test code = 3.40 g/dL 3.4-5.0 N ALB) CALCIUM (test code = 8.7 mg/dL 8.0-10.5 N CA) PHOSPHOROUS (test 4.1 MG/DL 2.5-4.9 N code = PHOS) GLUCOSE [id number] 16:57:00 Test Item Value Reference Range Interpretation Comments GLUCOSE BEDSIDE (test 226 MG/DL 70-110 H Perfor med by certified code = GLUBED) radiotelephone technical operator at [facility] GLUCOSE [id number] 08:42:00 Test Item Value Reference Range Interpretation Comments GLUCOSE BEDSIDE (test 135 MG/DL 70-110 H Perfor med by certified code = GLUBED) radiotelephone technical operator at [facility] BASIC METABOLIC [id number] 03:55:00 Test Item Value Reference Range Interpretation [...] 8.0-10.5 N CA) COMMENTS: POD #1HEPATIC FUNCTION [id number] 03:55:00 Test Item Value Reference Range Interpretation [...] 20-125 N code = ALKP) COMMENTS: POD #[id number] 03:55:00 Test Item Value Reference Range Interpretation Comments MAGNESIUM (test code = MAG) 2.48 mg/dL 1.80-2.40 H COMMENTS: POD #1CBC W/AUTO [id number] 03:49:00 Test Item Value Reference Range Interpretation [...] REQUIRED (test code NO = MDIFF) GLUCOSE [id number] 01:07:00 Test Item Value Reference Range Interpretation Comments GLUCOSE BEDSIDE (test 151 MG/DL 70-110 H Perfor med by certified code = GLUBED) radiotelephone technical operator at [facility] - XR CHEST 1 [id number] 00:00:00 [facility] : 1940 Sex: M FAX: Kathya Hassan [phone] [place]: St: ADM FAX: Analilia Crowell [facility] [phone] Name: MONICA BECK [facility] : 1940 Age/S: 82/M [address] [place] [address] Blvd Unit #: [id number] Loc: G.[address] [place] [address] Phys: Analilia Erwin Physic Acct: [id number] Dis Date: Status: ADM IN PHONE #: [phone] Exam Date: 09/29/2022503 FAX #: [phone] Reason: Cardiac Surgery Post Op Report Has Been Amended EXAMS: CPT CODE: [id number] XR CHEST 1 V 27453 Addendum - 09/29/2022 SQABHO5109/29/2022 ADDENDUM: [id number] RAD/CXR1 Report discussed with ordering clinician by telephone at 7:37 a.m. on 09/29/2022. at 0737 Reported and signed by: Mauri Walsh M.D. Report PROCEDURE INFORMATION: Exam: XR Chest Examdate and time: 09/29/2022 5:02 AM Age: 82 years old Clinical indication: Other: Cardiac surgery post op TECHNIQUE: Imaging protocol: Radiologic exam of the chest. Views: 1 view. COMPARISON: CR XR CHEST 1V 09/28/2022 5:12 AM FINDINGS: Tubes, catheters and devices: Right jugular central fine and chest tube in place. Lungs: Slightly increased dependent opacities, particularly on the right. Pleural spaces:No pneumothorax or significant pleural effusion. Heart/Mediastinum: Stable cardiomediastinal silhouette. Bones/joints: Median sternotomy wires. No acute bony abnormality. Intraperitoneal space: Pneumoperitoneum, with air noted beneath both diaphragm. IMPRESSION: Interval development of pneumoperitoneum. I have initiated contact with clinical staff to relay this critical finding. Pending callback. PAGE 1 Signed Report (CONTINUED) FAX: Kathya Hassan [phone] [place]: St: [facility] FAX: Analilia Crowell [phone] Name: MONICA BECK [facility] : 1940 Age/S: 82/M [address] [place] [address] Unit #: [id number] Loc: G.[address] [place] [address] Phys: Analilia Erwin Physic Acct: [id number] Dis Date: Status: ADM IN PHONE #: [phone] Exam Date: 09/29/2022 0504 FAX #: [phone] Reason:Cardiac Surgery Post Op Report Has Been Amended EXAMS: CPT CODE: [id number] XR CHEST 1 V 27787 (Continued) at 0728 Reported and signed by: Mauri Walsh M.D. CC: Kathya Maria MD; Analilia Erwin Technologist: RT Twin(R) Trnscrd Date/Time/By: 09/29/2022 (727) : By: [email or web address] Orig Print D/T: S: 09/29/2022 (727) PAGE 2 Signed ReportGLUCOSE [id number] 23:14:00 Test Item Value Reference Range Interpretation Comments GLUCOSE BEDSIDE (test 198 MG/DL 70-110 H Perfor med by certified code = GLUBED) radiotelephone technical operator at [facility] GLUCOSE [id number] 20:49:00 Test Item Value Reference Range Interpretation Comments GLUCOSE BEDSIDE (test 172 MG/DL 70-110 H Perfor med by certified code = GLUBED) radiotelephone technical operator at [facility] POC ARTERIAL BLOOD [id number] 20:38:00 Test Item Value Reference Range Interpretation Comments POC ARTERIAL BLOOD GAS PH (test 7.443 7.35-7.45 N code = POCPHA) POC ARTERIAL BLOOD GAS PCO2 33.2 mmHg 35.0-45 L (test code = POMAKR1U) POC TCO2 ARTERIAL (test code = 23.8 POCTCO2) POC ARTERIAL BLOOD GAS PO2 (test 75.7 mmHg 80-100.0 L code = FSGZZ9A) POC HCO3 ARTERIAL (test code = 22.8 MMOL/L 22.0-26.0 N TPZSAY8B) POC BASE EXCESS (test code = -1.4 MMOL/L -4.0-4.0 N POCBEA) POC O2 SATURATION (test code = 96.0 % 90-100 N POCO2S) FIO2 (test code = FIO2A) 32 % PaO2/FiO2 (test code = EJP1BUE6) 236.56 mm/Hg ABG DELIVERY (test code = LELO) HFNC ABG TEMPERATURE (test code = 97.8 F TEMPA) ABG SITE (test code = SITEA) Art Line BASIC METABOLIC [id number] 20:38:00 Test Item Value Reference Range Interpretation [...] = POCGLU) 143 MG/DL 70-110 H HEMOGLOBIN [id number] 20:38:00 Test Item Value Reference Range Interpretation Comments HEMOGLOBIN ABG (test code = HGB/ABG) 7.2 G/DL 12.5-16.9 L [id number] 20:38:00 Test Item Value Reference Range Interpretation Comments HEMATOCRIT (test code = HCT/ABG) 21 % 37.5-50.7 L POC LACTIC [id number] 20:38:00 Test Item Value Reference Range Interpretation Comments POC LACTIC ACID (test code = 0.9 mmol/l 0.9-1.7 N POCLAC) BASIC METABOLIC [id number] 18:34:00 Test Item Value Reference Range Interpretation [...] = 9.2 mg/dL 8.0-10.5 N CA) GLUCOSE [id number] 14:18:00 Test Item Value Reference Range Interpretation Comments GLUCOSE BEDSIDE (test 147 MG/DL 70-110 H Perfor med by certified code = GLUBED) radiotelephone technical operator at [facility] BASIC METABOLIC [id number] 13:39:00 Test Item Value Reference Range Interpretation [...] 9.1 mg/dL 8.0-10.5 N CA) UR SODIUM [id number] 13:24:00 Test Item Value Reference Range Interpretation Comments UR SODIUM RANDOM 32 MEQ/L The Referen ce Range and (test code = DEMETRIA) Method Per formance specificationsh ave not been established for this fluid. The test result should be correlated into the clinical context forinte rpretation. UR CREATININE [id number] 13:24:00 Test Item Value Reference Range Interpretation Comments UR CREATININE 182.6 mg/dL The Reference Range and RANDOM (test code Method Per formance = CREATU) specificationsh ave not been establishe d for this fluid. The test resultshould be correlated into the clinical contex t forinterpretati on. [id number] 12:20:00 Test Item Value Reference Interpretation Comments Range SURGICAL (test code = SR) RUN DATE: 09/28/22 [place] - LAB PAGE 1 RUN TIME: 1220 Specimen Inquiry RUN USER: INTERFACE PATIENT: MONICA BECK LOC: [facility] U #: [id number] AGE/SX: 82/M ROOM: [facility] RE09/24/22REG DR: Kathya Maria : 44 BED: 1 DIS: STATUS: ADM IN TLOC: SPEC #: [id number] RECD: 09/27/22 STATUS: COLTON K[place] #: [id number] RADHA: 09/26/22- [facility] DR: Kathya Maria MD ENTERED: 09/27/22 SP TYPE: SURGICAL OTHR DR: Self Referred Jakob Pa MD, Christopher A DO Mouchli, Anas MDORDERED: 34889, 48034, ANATOMIC SPEC COPIES TO: Self Referred Jakob Pa MD [address] [place] [address] [place] [address] [facility] [address] [place], [place] [address] Kathya Maria MD [address] [place] [address]. [address] [place] [address] Milton Mast MD [address] [place] [address] PROCEDURES: 92609 (09/27/22) 49752 (09/27/22) TISSUES: A. ATRIUM - LEFT ATRIAL APPENDAGE B. AORTIC VALVE - LEAFLETS CLINICAL HISTORY SAME CONTINUED ON NEXT PAGE RUN DATE: 09/28/22 [facility] PAGE 2 RUN TIME: 1220 Specimen Inquiry RUN USER: INTERFACE SPEC #: [id number] PATIENT: MONICA BECK #[id number] (Continued) - FINAL DIAGNOSIS Left atrial appendage, [...] submitted in B. Technical component performed at [address], [place] [address] Unless gross only, the diagnosis is based [...] Signed SIGNATURE ON FILE Sheng Han 09/28/22 8696 END OF REPORT GLUCOSE [id number] 11:48:00 Test Item Value Reference Range Interpretation Comments GLUCOSE BEDSIDE (test 218 MG/DL 70-110 H Perfor med by certified code = GLUBED) radiotelephone technical operator at [facility] HGB [id number] 08:24:00 Test Item Value Reference Range Interpretation Comments HEMOGLOBIN (test TEST NOT 12.5-16.9 L Amended code = HGB) PERFORMED g/dL report. Disre ronny previous result/results* Previously reported result : 8.2 g/dLEdited by: CRAIG on 09/28/22: 0823: HGB previously reported as: 8. 2 L g/dL HEMATOCRIT (test TEST NOT 37.5-50.7 L Previously code = HCT) PERFORMED % reported result : 23.9 %Edited by : CRAIG on 09/28/22: 08: HCT previously reported as: 23 .9 L % CBC W/AUTO [id number] 08:22:00 Test Item Value Reference Range Interpretation [...] REQUIRED (test code NO = MDIFF) GLUCOSE [id number] 07:48:00 Test Item Value Reference Range Interpretation Comments GLUCOSE BEDSIDE (test 162 MG/DL 70-110 H Perfor med by certified code = GLUBED) radiotelephone technical operator at [facility] CBC W/AUTO [id number] 02:57:00 Test Item Value Reference Range Interpretation [...] REQUIRED (test code NO = MDIFF) PLT [id number] 02:57:00 Test Item Value Reference Range Interpretation Comments PLATELET ESTIMATE (test code 88-110 THOUSAND ADEQUATE = PLTEST) PLATELET MORPHOLOGY (test LARGE PLATELETS code = PLTMORPH) BASIC METABOLIC [id number] 02:48:00 Test Item Value Reference Range Interpretation [...] 8.0-10.5 N CA) COMMENTS: POD #1HEPATIC FUNCTION [id number] 02:48:00 Test Item Value Reference Range Interpretation [...] 20-125 N code = ALKP) COMMENTS: POD #[id number] 02:48:00 Test Item Value Reference Range Interpretation Comments MAGNESIUM (test code = MAG) 2.14 mg/dL 1.80-2.40 N COMMENTS: POD #1CALCIUM [id number] 02:40:00 Test Item Value Reference Range Interpretation Comments CALCIUM IONIZED (test code = DONOVAN) 1.17 MMOL/L 1.09-1.30 N - XR CHEST 1 [id number] 00:00:00 [facility] : 1940 Sex: M FAX: Kathya Hassan [phone] [place]: St: ADM FAX: Analilia Crowell [facility] [phone] Name: MONICA BECK [facility] [place] : 1940 Age/S: 82/M [address] [place] [address] Unit #: [id number] Loc: G.2204 [place] [address] Phys: Analilia Erwin Physic Acct: [id number] Dis Date: Status: ADM IN PHONE #: [phone] Exam Date: 09/28/2022631 FAX #: [phone] Reason: Cardiac Surgery Post Op EXAMS: CPT CODE: [id number] XR CHEST 1 V 94014 PROCEDURE INFORMATION: Exam: XR Chest Exam date and time:09/28/2022 5:12 AM Age: 82 years old Clinical indication: Other: Cardiac surgery post op TECHNIQUE: Imaging protocol: Radiologic exam of the chest. Views: 1 view. COMPARISON: CR XR CHEST 1V 09/27/2022 5:07 AM FINDINGS: Tubes, catheters and devices: No change in position of the left chest tube or right trans jugular dialysis catheter is noted. Lungs: Persistent [...] and CABG surgery. IMPRESSION: 1. No significant i nterval change. Hypoventilatory changes in the lung bases. 2. Satisfactory line and tube placement unchanged. at 0752 Reported and signed by: Aleksandr Delgado M.D. CC: Kathya Maria MD; Analilia Bullock Physic Rip Technologist: RT Melia(Darin) Trncakrysten Date/Time/By: 09/28/2022 (0752) : By: [email or web address] Orig Print D/T: S: 09/28/2022 (075) PAGE 1 Signed ReportGLUCOSE [id number] 23:15:00 Test Item Value Reference Range Interpretation Comments GLUCOSE BEDSIDE (test 165 MG/DL 70-110 H Perfor med by certified code = GLUBED) radiotelephone technical operator at [facility] GLUCOSE [id number] 20:36:00 Test Item Value Reference Range Interpretation Comments GLUCOSE BEDSIDE (test 194 MG/DL 70-110 H Perfor med by certified code = GLUBED) radiotelephone technical operator at [facility] GLUCOSE [id number] 17:04:00 Test Item Value Reference Range Interpretation Comments GLUCOSE BEDSIDE (test 131 MG/DL 70-110 H Perfor med by certified code = GLUBED) radiotelephone technical operator at [facility] GLUCOSE [id number] 14:49:00 Test Item Value Reference Range Interpretation Comments GLUCOSE BEDSIDE (test 149 MG/DL 70-110 H Perfor med by certified code = GLUBED) radiotelephone technical operator at [facility] GLUCOSE [id number] 12:37:00 Test Item Value Reference Range Interpretation Comments GLUCOSE BEDSIDE (test 162 MG/DL 70-110 H Perfor med by certified code = GLUBED) radiotelephone technical operator at [facility] GLUCOSE [id number] 11:43:00 Test Item Value Reference Range Interpretation Comments GLUCOSE BEDSIDE (test 213 MG/DL 70-110 H Perfor med by certified code = GLUBED) radiotelephone technical operator at [facility] GLUCOSE [id number] 07:44:00 Test Item Value Reference Range Interpretation Comments GLUCOSE BEDSIDE (test 141 MG/DL 70-110 H Perfor med by certified code = GLUBED) radiotelephone technical operator at [facility] PROTHROMBIN [id number] 06:32:00 Test Item Value Reference Range Interpretation [...] (to prevent recurrent infar ct). THROMBOPLASTIN TIME [id number] 06:32:00 Test Item Value Reference Range Interpretation Comments THROMBOPLASTIN TIME 31.3 Seconds 25.0-39.5 N Therape utic Range: PARTIAL (test code = 50.4 - 88.3 Seconds PTT) Effective 09/04/2018 CBC W/AUTO [id number] 06:09:00 Test Item Value Reference Range Interpretation [...] code NO = MDIFF) POC ARTERIAL BLOOD [id number] 05:17:00 Test Item Value Reference Range Interpretation Comments POC ARTERIAL BLOOD GAS PH (test 7.380 7.35-7.45 N code = POCPHA) POC ARTERIAL BLOOD GAS PCO2 38.9 mmHg 35.0-45 N (test code = SEBMIR2P) POC TCO2 ARTERIAL (test code = 24.2 POCTCO2) POC ARTERIAL BLOOD GAS PO2 (test 78.3 mmHg 80-100.0 L code = SYBMI4X) POC HCO3 ARTERIAL (test code = 23.0 MMOL/L 22.0-26.0 N MYFNGO7W) POC BASE EXCESS (test code = -2.0 MMOL/L -4.0-4.0 N POCBEA) POC O2 SATURATION (test code = 95.2 % 90-100 N POCO2S) FIO2 (test code = FIO2A) 28 % PaO2/FiO2 (test code = [id number]) 279.64 mm/Hg ABG DELIVERY (test code = LELO) HFNC ABG SITE (test code = SITEA) Art Line BASIC METABOLIC [id number] 05:17:00 Test Item Value Reference Range Interpretation [...] = POCGLU) 118 MG/DL 70-110 H HEMOGLOBIN [id number] 05:17:00 Test Item Value Reference Range Interpretation Comments HEMOGLOBIN ABG (test code = HGB/ABG) 8.1 G/DL 12.5-16.9 L [id number] 05:17:00 Test Item Value Reference Range Interpretation Comments HEMATOCRIT (test code = HCT/ABG) 24 % 37.5-50.7 L POC LACTIC [id number] 05:17:00 Test Item Value Reference Range Interpretation Comments POC LACTIC ACID (test code = 0.9 mmol/l 0.9-1.7 N POCLAC) BASIC METABOLIC [id number] 03:43:00 Test Item Value Reference Range Interpretation [...] the recommended for philipp for GFRby the [facility] on for Adults.The GFR will not calculate if th e sex is unknown or if thepatient's ag e is <18 years. CREATININE (test 0.9 mg/dL 0.6-1.3 N code = CREAT) CALCIUM (test code = 8.1 mg/dL 8.0-10.5 N CA) COMMENTS: POD #1HEPATIC FUNCTION [id number] 03:43:00 Test Item Value Reference Range Interpretation [...] 20-125 N code = ALKP) COMMENTS: POD #[id number] 03:43:00 Test Item Value Reference Range Interpretation Comments MAGNESIUM (test code = MAG) 2.10 mg/dL 1.80-2.40 COMMENTS: POD #1CALCIUM [id number] 03:15:00 Test Item Value Reference Range Interpretation Comments CALCIUM IONIZED (test code = DONOVAN) 1.09 MMOL/L 1.09-1.30 N CBC W/AUTO [id number] 02:59:00 Test Item Value Reference Range Interpretation [...] REQUIRED (test code NO = MDIFF) GLUCOSE [id number] 01:38:00 Test Item Value Reference Range Interpretation Comments GLUCOSE BEDSIDE (test 137 MG/DL 70-110 H Perfor med by certified code = GLUBED) radiotelephone technical operator at [facility] - XR CHEST 1 [id number] 00:00:00 [facility] WHIPPLEELI VALENTE : 1940 Sex: M FAX: Kathya Hassan [phone] [place]: St: ADM FAX: Analilia Crowell [facility] [phone] Name: MONICA BECK [facility] : 1940 Age/S: 82/M [address] [place] [address] Unit #: [id number] Loc: G.[address] [place] [address] Phys: Analilia Erwin Physic Acct: [id number] Dis Date: Status: ADM IN PHONE #: [phone] Exam Date: 09/27/2022 0506 FAX #: [phone] Reason: Cardiac Surgery Post Op EXAMS: CPT CODE: [id number] XR CHEST 1 V 23110 PROCEDURE INFORMATION: Exam: XR Chest Exam date and time: 09/27/2022 5:07 AM Age: 82 years old Clinical [...] appears moderately enlarged. Vasculature: Mild atherosclerotic calcification d emonstrated within the aorta. Bones/joints: Sternotomy wires, hardware is demonstrated. IMPRESSION: 1. Linear bilateral lower chest pulmonary atelectasis, or scarring. 2. Moderate enlarged cardiac silhouette. 3. Mild interstitial pulmonary edema versus infiltrates. 4. Small bilateral pleural effusions. at 0710 Reported and signed by: Nayan Jacobsen M.D. CC: Kathya Maria MD; Analilia Erwin Technologist: RT Twin(Darin) Trnscrd Date/Time/By: 09/27/2022 (0746) : By: [email or web address] Orig Print D/T: S: 09/27/2022 (5821) PAGE 1 Signed ReportGLUCOSE [id number] 23:38:00 Test Item Value Reference Range Interpretation Comments GLUCOSE BEDSIDE (test 150 MG/DL 70-110 H Perfor med by certified code = GLUBED) radiotelephone technical operator at [facility] POC ARTERIAL BLOOD [id number] 20:46:00 Test Item Value Reference Range Interpretation Comments POC ARTERIAL BLOOD GAS PH (test 7.373 7.35-7.45 N code = POCPHA) POC ARTERIAL BLOOD GAS PCO2 35.2 mmHg 35.0-45 N (test code = NAQORM1O) POC TCO2 ARTERIAL (test code = 21.6 POCTCO2) POC ARTERIAL BLOOD GAS PO2 (test 87.7 mmHg 80-100.0 N code = TNEND0C) POC HCO3 ARTERIAL (test code = 20.5 MMOL/L 22.0-26.0 L ONGWAC8V) POC BASE EXCESS (test code = -4.3 MMOL/L -4.0-4.0 L POCBEA) POC O2 SATURATION (test code = 96.6 % 90-100 N POCO2S) FIO2 (test code = FIO2A) 36 % PaO2/FiO2 (test code = ELD3IJT4) 243.61 mm/Hg ABG DELIVERY (test code = LELO) HFNC ABG SITE (test code = SITEA) Art Line BASIC METABOLIC [id number] 20:46:00 Test Item Value Reference Range Interpretation [...] = POCGLU) 172 MG/DL 70-110 H HEMOGLOBIN [id number] 20:46:00 Test Item Value Reference Range Interpretation Comments HEMOGLOBIN ABG (test code = HGB/ABG) 8.5 G/DL 12.5-16.9 L [id number] 20:46:00 Test Item Value Reference Range Interpretation Comments HEMATOCRIT (test code = HCT/ABG) 25 % 37.5-50.7 L POC LACTIC [id number] 20:46:00 Test Item Value Reference Range Interpretation Comments POC LACTIC ACID (test code = 1.5 mmol/l 0.9-1.7 N POCLAC) GLUCOSE [id number] 18:40:00 Test Item Value Reference Range Interpretation Comments GLUCOSE BEDSIDE (test 150 MG/DL 70-110 H Perfor med by certified code = GLUBED) radiotelephone technical operator at [facility] POC ARTERIAL BLOOD [id number] 17:17:00 Test Item Value Reference Range Interpretation Comments POC ARTERIAL BLOOD GAS PH (test 7.334 7.35-7.45 L code = POCPHA) POC ARTERIAL BLOOD GAS PCO2 (test 43.6 mmHg 35.0-45 N code = RDINLI0E) POC TCO2 ARTERIAL (test code = 24.6 POCTCO2) POC ARTERIAL BLOOD GAS PO2 (test 78.1 mmHg 80-100.0 L code = VJCPV5U) POC HCO3 ARTERIAL (test code = 23.3 MMOL/L 22.0-26.0 N NTPHEX2H) POC BASE EXCESS (test code = -2.7 MMOL/L -4.0-4.0 N POCBEA) POC O2 SATURATION (test code = 94.7 % 90-100 N POCO2S) ABG DELIVERY (test code = LELO) HFNC ABG TEMPERATURE (test code = 98 F TEMPA) BASIC METABOLIC [id number] 17:17:00 Test Item Value Reference Range Interpretation [...] = POCGLU) 99 MG/DL 70-110 N HEMOGLOBIN [id number] 17:17:00 Test Item Value Reference Range Interpretation Comments HEMOGLOBIN ABG (test code = HGB/ABG) 8.7 G/DL 12.5-16.9 L [id number] 17:17:00 Test Item Value Reference Range Interpretation Comments HEMATOCRIT (test code = HCT/ABG) 25 % 37.5-50.7 L GLUCOSE [id number] 17:17:00 Test Item Value Reference Range Interpretation Comments GLUCOSE BEDSIDE (test 49 MG/DL 70-110 L [facility] med by certified code = GLUBED) radiotelephone technical operator at [facility] BASIC METABOLIC [id number] 17:08:00 Test Item Value Reference Range Interpretation [...] 8.5 mg/dL 8.0-10.5 N CA) COMMENTS: On [id number] 17:08:00 Test Item Value Reference Range Interpretation Comments MAGNESIUM (test code = MAG) 2.80 mg/dL 1.80-2.40 H COMMENTS: On arrivalPROTHROMBIN [id number] 17:01:00 Test Item Value Reference Range Interpretation Comments PROTHROMBIN TIME 18.1 SECONDS 9.3-12.9 H PATIENT (test code = PTP) INTERNATIONAL NORMAL 1.6 0.8-1.2 H TARGET INR BY RATIO (test [...] recurrent infar ct). COMMENTS: On arrivalTHROMBOPLASTIN TIME [id number] 17:01:00 Test Item Value Reference Range Interpretation Comments THROMBOPLASTIN TIME 40.7 Seconds 25.0-39.5 H Therape utic Range: PARTIAL (test code = 50.4 - 88.3 Seconds PTT) Effective 09/04/2018 COMMENTS: On arrivalPOC ARTERIAL BLOOD [id number] 16:58:00 Test Item Value Reference Range Interpretation Comments POC ARTERIAL BLOOD GAS PH (test 7.344 7.35-7.45 L code = POCPHA) POC ARTERIAL BLOOD GAS PCO2 (test 43.6 mmHg 35.0-45 N code = XHRHOZ1G) POC TCO2 ARTERIAL (test code = 25.0 POCTCO2) POC ARTERIAL BLOOD GAS PO2 (test 100.5 mmHg 80-100.0 H code = KZDYX5X) POC HCO3 ARTERIAL (test code = 23.7 MMOL/L 22.0-26.0 N UNILCX0T) POC BASE EXCESS (test code = -2.0 MMOL/L -4.0-4.0 N POCBEA) POC O2 SATURATION (test code = 97.4 % 90-100 N POCO2S) ABG DELIVERY (test code = LELO) Cannula ABG SITE (test code = SITEA) Art Line BASIC METABOLIC [id number] 16:58:00 Test Item Value Reference Range Interpretation [...] = POCGLU) 116 MG/DL 70-110 H HEMOGLOBIN [id number] 16:58:00 Test Item Value Reference Range Interpretation Comments HEMOGLOBIN ABG (test code = HGB/ABG) 8.7 G/DL 12.5-16.9 L [id number] 16:58:00 Test Item Value Reference Range Interpretation Comments HEMATOCRIT (test code = HCT/ABG) 26 % 37.5-50.7 L POC LACTIC [id number] 16:58:00 Test Item Value Reference Range Interpretation Comments POC LACTIC ACID (test code = 2.5 mmol/l 0.9-1.7 H POCLAC) CBC W/AUTO [id number] 16:52:00 Test Item Value Reference Range Interpretation [...] (test NO code = MDIFF) COMMENTS: On [id number] 15:30:00 Test Item Value Reference Range Interpretation Comments ACT-ISTAT (test code 143 SEC 74-137 H Perform ed by certified = ACTI) radiotelephone technical operator at [facility] POC ARTERIAL BLOOD [id number] 15:30:00 Test Item Value Reference Range Interpretation Comments POC ARTERIAL BLOOD GAS PH (test 7.278 7.35-7.45 LL code = POCPHA) POC ARTERIAL BLOOD GAS PCO2 (test 52.5 mmHg 35.0-45 HH code = NMUXEQ8E) POC TCO2 ARTERIAL (test code = 26.2 POCTCO2) POC ARTERIAL BLOOD GAS PO2 (test 92.6 mmHg 80-100.0 N code = NWUQU2Q) POC HCO3 ARTERIAL (test code = 24.6 MMOL/L 22.0-26.0 N RUIHTO2Y) POC BASE EXCESS (test code = -2.4 MMOL/L -4.0-4.0 N POCBEA) POC O2 SATURATION (test code = 95.9 % 90-100 N POCO2S) BASIC METABOLIC [id number] 15:30:00 Test Item Value Reference Range Interpretation [...] = POCGLU) 144 MG/DL 70-110 H HEMOGLOBIN [id number] 15:30:00 Test Item Value Reference Range Interpretation Comments HEMOGLOBIN ABG (test code = HGB/ABG) 8.8 G/DL 12.5-16.9 L [id number] 15:30:00 Test Item Value Reference Range Interpretation Comments HEMATOCRIT (test code = HCT/ABG) 26 % 37.5-50.7 L POC LACTIC [id number] 15:30:00 Test Item Value Reference Range Interpretation Comments POC LACTIC ACID (test code = 1.4 mmol/l 0.9-1.7 N POCLAC) [id number] 14:17:00 Test Item Value Reference Range Interpretation Comments ACT-ISTAT (test code 756 SEC 74-137 H Perform ed by certified = ACTI) radiotelephone technical operator at [facility] POC ARTERIAL BLOOD [id number] 14:02:00 Test Item Value Reference Range Interpretation Comments POC ARTERIAL BLOOD GAS PH (test 7.400 7.35-7.45 N code = POCPHA) POC ARTERIAL BLOOD GAS PCO2 (test 40.0 mmHg 35.0-45 N code = DTGXSI6I) POC TCO2 ARTERIAL (test code = 26.0 POCTCO2) POC ARTERIAL BLOOD GAS PO2 (test 394.9 mmHg 80-100.0 HH code = EYYGU6E) POC HCO3 ARTERIAL (test code = 24.8 MMOL/L 22.0-26.0 N NNHFPK6H) POC BASE EXCESS (test code = 0.0 MMOL/L -4.0-4.0 N POCBEA) POC O2 SATURATION (test code = 100.0 % 90-100 N POCO2S) BASIC METABOLIC [id number] 14:02:00 Test Item Value Reference Range Interpretation [...] = POCGLU) 145 MG/DL 70-110 H HEMOGLOBIN [id number] 14:02:00 Test Item Value Reference Range Interpretation Comments HEMOGLOBIN ABG (test code = HGB/ABG) 9.7 G/DL 12.5-16.9 L [id number] 14:02:00 Test Item Value Reference Range Interpretation Comments HEMATOCRIT (test code = HCT/ABG) 29 % 37.5-50.7 L POC LACTIC [id number] 14:02:00 Test Item Value Reference Range Interpretation Comments POC LACTIC ACID (test code = 0.9 mmol/l 0.9-1.7 N POCLAC) [id number] 13:55:00 Test Item Value Reference Range Interpretation Comments ACT-ISTAT (test code 817 SEC 74-137 H Perform ed by certified = ACTI) radiotelephone technical operator at [facility] POC ARTERIAL BLOOD [id number] 13:40:00 Test Item Value Reference Range Interpretation Comments POC ARTERIAL BLOOD GAS PH (test 7.446 7.35-7.45 N code = POCPHA) POC ARTERIAL BLOOD GAS PCO2 (test 34.0 mmHg 35.0-45 L code = [id number]) POC TCO2 ARTERIAL (test code = 24.5 POCTCO2) POC ARTERIAL BLOOD GAS PO2 (test 417.0 mmHg 80-100.0 HH code = ERCKL1I) POC HCO3 ARTERIAL (test code = 23.4 MMOL/L 22.0-26.0 N [id number]) POC BASE EXCESS (test code = -0.3 MMOL/L -4.0-4.0 N POCBEA) POC O2 SATURATION (test code = 100.0 % 90-100 N POCO2S) BASIC METABOLIC [id number] 13:40:00 Test Item Value Reference Range Interpretation [...] = POCGLU) 152 MG/DL 70-110 H HEMOGLOBIN [id number] 13:40:00 Test Item Value Reference Range Interpretation Comments HEMOGLOBIN ABG (test code = 10.0 G/DL 12.5-16.9 L HGB/ABG) [id number] 13:40:00 Test Item Value Reference Range Interpretation Comments HEMATOCRIT (test code = HCT/ABG) 30 % 37.5-50.7 L POC LACTIC [id number] 13:40:00 Test Item Value Reference Range Interpretation Comments POC LACTIC ACID (test code = 0.9 mmol/l 0.9-1.7 N POCLAC) [id number] 13:17:00 Test Item Value Reference Range Interpretation Comments ACT-ISTAT (test code 883 SEC 74-137 H Perform ed by certified = ACTI) radiotelephone technical operator at [facility] POC ARTERIAL BLOOD [id number] 13:03:00 Test Item Value Reference Range Interpretation Comments POC ARTERIAL BLOOD GAS PH (test 7.422 7.35-7.45 N code = POCPHA) POC ARTERIAL BLOOD GAS PCO2 (test 39.8 mmHg 35.0-45 N code = PWTTKV5L) POC TCO2 ARTERIAL (test code = 27.1 POCTCO2) POC ARTERIAL BLOOD GAS PO2 (test 525.6 mmHg 80-100.0 HH code = LWGQB7Z) POC HCO3 ARTERIAL (test code = 25.9 MMOL/L 22.0-26.0 N PBSVTC7E) POC BASE EXCESS (test code = 1.4 MMOL/L -4.0-4.0 N POCBEA) POC O2 SATURATION (test code = 100.0 % 90-100 N POCO2S) BASIC METABOLIC [id number] 13:03:00 Test Item Value Reference Range Interpretation [...] = POCGLU) 169 MG/DL 70-110 H HEMOGLOBIN [id number] 13:03:00 Test Item Value Reference Range Interpretation Comments HEMOGLOBIN ABG (test code = HGB/ABG) 9.8 G/DL 12.5-16.9 L [id number] 13:03:00 Test Item Value Reference Range Interpretation Comments HEMATOCRIT (test code = HCT/ABG) 29 % 37.5-50.7 L POC LACTIC [id number] 13:03:00 Test Item Value Reference Range Interpretation Comments POC LACTIC ACID (test code = 0.5 mmol/l 0.9-1.7 L POCLAC) [id number] 12:38:00 Test Item Value Reference Range Interpretation Comments ACT-ISTAT (test code 733 SEC 74-137 H Perform ed by certified = ACTI) radiotelephone technical operator at [facility] POC ARTERIAL BLOOD [id number] 12:29:00 Test Item Value Reference Range Interpretation Comments POC ARTERIAL BLOOD GAS PH (test 7.185 7.35-7.45 LL code = POCPHA) POC ARTERIAL BLOOD GAS PCO2 (test 67.2 mmHg 35.0-45 HH code = EDANDU4C) POC TCO2 ARTERIAL (test code = 27.4 POCTCO2) POC ARTERIAL BLOOD GAS PO2 (test 106.2 mmHg 80-100.0 H code = FXLNR5I) POC HCO3 ARTERIAL (test code = 25.4 MMOL/L 22.0-26.0 N JQIVYO2Q) POC BASE EXCESS (test code = -4.2 MMOL/L -4.0-4.0 L POCBEA) POC O2 SATURATION (test code = 96.2 % 90-100 N POCO2S) BASIC METABOLIC [id number] 12:29:00 Test Item Value Reference Range Interpretation [...] = POCGLU) 193 MG/DL 70-110 H HEMOGLOBIN [id number] 12:29:00 Test Item Value Reference Range Interpretation Comments HEMOGLOBIN ABG (test code = 13.5 G/DL 12.5-16.9 N HGB/ABG) [id number] 12:29:00 Test Item Value Reference Range Interpretation Comments HEMATOCRIT (test code = HCT/ABG) 40 % 37.5-50.7 N POC LACTIC [id number] 12:29:00 Test Item Value Reference Range Interpretation Comments POC LACTIC ACID (test code = 0.7 mmol/l 0.9-1.7 L POCLAC) [id number] 11:26:00 Test Item Value Reference Range Interpretation Comments ACT-ISTAT (test code 149 SEC 74-137 H Perform ed by certified = ACTI) radiotelephone technical operator at [facility] POC ARTERIAL BLOOD [id number] 11:13:00 Test Item Value Reference Range Interpretation Comments POC ARTERIAL BLOOD GAS PH (test 7.463 7.35-7.45 H code = POCPHA) POC ARTERIAL BLOOD GAS PCO2 (test 34.1 mmHg 35.0-45 L code = PHDAFI6F) POC TCO2 ARTERIAL (test code = 25.5 POCTCO2) POC ARTERIAL BLOOD GAS PO2 (test 563.7 mmHg 80-100.0 HH code = ORQDQ0G) POC HCO3 ARTERIAL (test code = 24.4 MMOL/L 22.0-26.0 N [id number]) POC BASE EXCESS (test code = 1.1 MMOL/L -4.0-4.0 N POCBEA) POC O2 SATURATION (test code = 100.0 % 90-100 N POCO2S) BASIC METABOLIC [id number] 11:13:00 Test Item Value Reference Range Interpretation [...] = POCGLU) 115 MG/DL 70-110 H HEMOGLOBIN [id number] 11:13:00 Test Item Value Reference Range Interpretation Comments HEMOGLOBIN ABG (test code = 13.9 G/DL 12.5-16.9 N HGB/ABG) [id number] 11:13:00 Test Item Value Reference Range Interpretation Comments HEMATOCRIT (test code = HCT/ABG) 41 % 37.5-50.7 N POC LACTIC [id number] 11:13:00 Test Item Value Reference Range Interpretation Comments POC LACTIC ACID (test code = 0.4 mmol/l 0.9-1.7 L POCLAC) B-TYPE NATRIURETIC [id number] 09:24:00 Test Item Value Reference Range Interpretation Comments B-TYPE NATRIURETIC PEPTIDE (test 331.0 PG/ML 0-100 H code = BNP) HGBA1C%2022-09-26 08:57:00 Test Item Value Reference Range Interpretation Comments HGBA1C% (test code = HGBA1C%) 6.8 %A1C 4.8-6.0 H GLUCOSE [id number] 08:46:00 Test Item Value Reference Range Interpretation Comments GLUCOSE BEDSIDE (test 202 MG/DL 70-110 H Perfor med by certified code = GLUBED) radiotelephone technical operator at [facility] COMPREHENSIVE METABOLIC [id number] 08:14:00 Test Item Value Reference Range Interpretation [...] (test code = LDL) NEAR OPTIM AL/ABOVE [id number] 89 HIGH>IQ=368 CHARLES Y HIGH*Guidelines provided by the National [facility] terol EducationProa Adult Treatment Panel III CBC W/AUTO [id number] 08:11:00 Test Item Value Reference Range Interpretation [...] = MDIFF) COMMENTS: Daily while on HeparinPROTHROMBIN [id number] 05:54:00 Test Item Value Reference Range Interpretation [...] (to prevent recurrent infar ct). THROMBOPLASTIN TIME [id number] 05:54:00 Test Item Value Reference Range Interpretation Comments THROMBOPLASTIN TIME 48.1 Seconds 25.0-39.5 H Therape utic Range: PARTIAL (test code = 50.4 - 88.3 Seconds PTT) Effective 09/04/2018 - XR CHEST 1 [id number] 00:00:00 [facility] 1940 Sex: M FAX: Kathya Hassan [phone] [place]: St: ADM FAX: Analilia Crowell [facility] [phone] Name: MONICA BECK [facility] : 1940 Age/S: 82/M [address] [place] [address] Unit #: [id number] Loc: G.2204 [place] [address] Phys: Analilia Erwin Physic Acct: [id number] Dis Date: Status: ADM IN PHONE #: [phone] Exam Date: 09/26/2022 1627 FAX #: [phone] Reason: Cardiac Surgery Post Op EXAMS: CPT CODE: [id number] XR CHEST 1 V 19145 PROCEDURE INFORMATION: Exam: XR Chest Exam date and time: 09/26/2022 4:24 PM Age: 82 years old Clinical indication: Device placement; Other: Cardiac surgery post op TECHNIQUE: Imaging [...] the lungs. Bilateral pulmonary opacities are most prominentwithin the lower lungs. Pleural spaces: Small volume bilateral pleural effusions. Heart/Mediastinum:Cardiac silhouette appears moderately enlarged. Bones/joints: Sternotomy wires, hardware is demonstrated. Generalized bony degenerative changes. Soft tissues: This study is limited by patient's body habitus. IMPRESSION: 1. Small bilateral pleural effusions. 2. Moderate pulmonary edema versus infiltrates, pneumonia. 3. Moderate enlarged cardiac silhouette. at 1735 Reported and signed by: Nayan Jacobsen M.D. CC: Kathya Maria MD; Analilia Erwin Technologist: Ana Trinidad, RT(R); Ananya Gonsalez RT(R) Trnscrd Date/Time/By: 09/26/2022 (6568) : By: [email or web address] Orig Print D/T: S: 09/26/2022 (8792) PAGE 1 Signed ReportGLUCOSE [id number] 22:06:00 Test Item Value Reference Range Interpretation Comments GLUCOSE BEDSIDE (test 158 MG/DL 70-110 H Perfor med by certified code = GLUBED) radiotelephone technical operator at [facility] THROMBOPLASTIN TIME [id number] 21:09:00 Test Item Value Reference Range Interpretation Comments THROMBOPLASTIN TIME 73.6 Seconds 25.0-39.5 H Therape utic Range: PARTIAL (test code = 50.4 - 88.3 Seconds PTT) Effective 09/04/2018 GLUCOSE [id number] 18:40:00 Test Item Value Reference Range Interpretation Comments GLUCOSE BEDSIDE (test 119 MG/DL 70-110 H Perfor med by certified code = GLUBED) radiotelephone technical operator at [facility] GLUCOSE [id number] 15:22:00 Test Item Value Reference Range Interpretation Comments GLUCOSE BEDSIDE (test 168 MG/DL 70-110 H Perfor med by certified code = GLUBED) radiotelephone technical operator at [facility] GLUCOSE [id number] 15:22:00 Test Item Value Reference Range Interpretation Comments GLUCOSE BEDSIDE (test 239 MG/DL 70-110 H Perfor med by certified code = GLUBED) radiotelephone technical operator at [facility] GLUCOSE [id number] 15:22:00 Test Item Value Reference Range Interpretation Comments GLUCOSE BEDSIDE (test 102 MG/DL 70-110 N Perfor med by certified code = GLUBED) radiotelephone technical operator at [facility] THROMBOPLASTIN TIME [id number] 13:27:00 Test Item Value Reference Range Interpretation Comments THROMBOPLASTIN TIME 88.4 Seconds 25.0-39.5 H Therape utic Range: PARTIAL (test code = 50.4 - 88.3 Seconds PTT) Effective 09/04/2018 CBC W/AUTO [id number] 08:45:00 Test Item Value Reference Range Interpretation [...] (test code NO = MDIFF) BASIC METABOLIC [id number] 07:36:00 Test Item Value Reference Range Interpretation [...] = 8.2 mg/dL 8.0-10.5 N CA) URINALYSIS [id number] 07:27:00 Test Item Value Reference Range Interpretation [...] MUCU) TRACE /LPF NONE SEEN THROMBOPLASTIN TIME [id number] 06:50:00 Test Item Value Reference Range Interpretation Comments THROMBOPLASTIN TIME 54.3 Seconds 25.0-39.5 H Therape utic Range: PARTIAL (test code = 50.4 - 88.3 Seconds PTT) Effective 09/04/2018 COVID 19 Asymptomatic IH [id number] 05:43:00 Test Item Value Reference Range Interpretation [...] high or waivedcomplexit y tests. THROMBOPLASTIN TIME [id number] 00:19:00 Test Item Value Reference Range Interpretation Comments THROMBOPLASTIN TIME 70.3 Seconds 25.0-39.5 H Therape utic Range: PARTIAL (test code = 50.4 - 88.3 Seconds PTT) Effective 09/04/2018 GLUCOSE [id number] 21:09:00 Test Item Value Reference Range Interpretation Comments GLUCOSE BEDSIDE (test 167 MG/DL 70-110 H Perfor med by certified code = GLUBED) radiotelephone technical operator at [facility] GLUCOSE [id number] 21:09:00 Test Item Value Reference Range Interpretation Comments GLUCOSE BEDSIDE (test 172 MG/DL 70-110 H Perfor med by certified code = GLUBED) radiotelephone technical operator at [facility] THROMBOPLASTIN TIME [id number] 17:27:00 Test Item Value Reference Range Interpretation Comments THROMBOPLASTIN TIME 68.8 Seconds 25.0-39.5 H Therape utic Range: PARTIAL (test code = 50.4 - 88.3 Seconds PTT) Effective 09/04/2018 GLUCOSE [id number] 16:32:00 Test Item Value Reference Range Interpretation Comments GLUCOSE BEDSIDE (test 169 MG/DL 70-110 H Perfor med by certified code = GLUBED) radiotelephone technical operator at [facility] THROMBOPLASTIN TIME [id number] 11:00:00 Test Item Value Reference Range Interpretation Comments THROMBOPLASTIN TIME 139.2 Seconds 25.0-39.5 H Therap eutic PARTIAL (test code = Range: 50.4 - 88.3 PTT) Seconds Effective 09/04/2018 LIPOPROTEIN [id number] 04:15:00 Test Item Value Reference Range Interpretation Comments LIPOPROTEIN LDL 40.0 mg/dL 0-100 N <100 OPTIMAL 100-129 NEAR (test code = LDL) OPTIMAL/AB OVE [id number] 89 HIGH>XT=070 CHARLES Y HIGH*Guidelines provided by the National Cholesterol EducationProgra m Adult Treatment Panel III TROP-I HIGH [id number] 03:54:00 Test Item Value Reference Range Interpretation [...] These resu lts were obtained using Siemens [employer] IM TnI Hreagent. Results from di fferent methodologies s hould not becompared to o ne another as quantitative results and URLs mayvar y by method. HGBA1C%2022-09-24 03:54:00 Test Item Value Reference Range Interpretation Comments HGBA1C% (test code = HGBA1C%) 6.8 %A1C 4.8-6.0 H BASIC METABOLIC [id number] 03:54:00 Test Item Value Reference Range Interpretation [...] the recommended for philipp for GFRby the [facility] Kidney Foundati on for Adults.The GFR will not calculate if th e sex is unknown or if thepatient's ag e is <18 years. CREATININE (test 1.0 mg/dL 0.6-1.3 N code = CREAT) CALCIUM (test code = 8.2 mg/dL 8.0-10.5 N CA) THROMBOPLASTIN TIME [id number] 03:52:00 Test Item Value Reference Range Interpretation Comments THROMBOPLASTIN TIME 84.7 Seconds 25.0-39.5 H Therape utic Range: PARTIAL (test code = 50.4 - 88.3 Seconds PTT) Effective 09/04/2018 CBC W/AUTO [id number] 03:40:00 Test Item Value Reference Range Interpretation [...] DONE WITHIN LAST 24 HOURS- DUP VEIN [id number] 00:00:00[facility] : 1940 Sex: M Name: MONICA BECK [facility] [place] : 1940 Age/S: 82 / M [address] [place] [address] Unit #: [id number] [facility]: [facility] [address] Phys: Alexandra Vicente MEDIA RELATIONS COORDINATOR Acct: [id number] Dis Date:Status: ADM IN PHONE #: [phone] Exam Date: 09/24/20224 FAX #: [phone] Reason: PRE CABGEVAL EXAMS: CPT CODE: [id number] [facility] VEIN [place] [address] PROCEDURE INFORMATION: Exam: US Duplex Lower Extremity [...] NP Technologist: Rosalie Koenig RDMS(AB) Trnscb Date/Time: 09/24/2022 (1840) [email or web address] Orig Print D/T: S: 09/24/2022 (1840) Probe: PAGE 1 Signed Report- DUP EXTRACRANIAL [id number] 00:00:00[facility] : 1940 Sex: M Name: MONICA BECK [facility] Julianne Jackson : 1940 Age/S: 82 / M [address] [place] [address] Unit #: [id number] Loc: [place] [address] Phys: Alexandra Vicente NP Acct: [id number] Dis Date: Status: ADM IN PHONE #: [phone] Exam Date: 09/24/2022 1654 FAX #: [phone] Reason: pre cabg eval EXAMS: CPT CODE: [id number] DUP EXTRACRANIAL AILEEN [address] PROCEDURE INFORMATION: Exam: US DuplexBilateral Extracranial Arteries, Carotid Arteries Exam date and time: 09/24/2022 1:30 PM Age: 82 yearsold Clinical indication: Condition or disease; Other: Cad; Additional info: Pre cabg eval TECHNIQUE: Imaging protocol: Real-time Duplex ultrasound scan of the bilateral carotid and vertebral arteries combining chisholm scale, color Doppler and spectral waveform analysis. Bilateral exam. Exam focused on the carotid arteries. COMPARISON: No relevant prior studies available. FINDINGS: Any reported internal carotid artery stenoses indirectly reference the distal internal carotid diameter as the denominator for stenosis measurement, utilizing consensus panel criteria. RIGHT: Moderate plaque formation is identified. ICA PSV: 90 cm/s CCA PSV: 72 cm/s ICA/CCA ratio: 1.3 Vertebral flow is antegrade. LEFT: Qrjt-ns-vpieagab plaque formation is identified. ICA PSV: 116 cm/s CCA PSV: 113 cm/s ICA/CCA ratio: 1 Vertebral flow is antegrade. IMPRESSION: 1. RIGHT: Carotid artery stenosis estimated at less than 50% 2.LEFT: Carotid artery stenosis estimated at less than 50% at 1842 Reported and signed by: Mikey Salmon M.D. CC: Kathya Maria MD; Alexandra Christie NP Technologist: Rosalie Koenig RDMS(AB) Trnscb Date/Time: 09/24/2022(1841) [email or web address] Orig Print D/T: S: 09/24/2022 (1841) Probe: PAGE 1 Signed Report Notes Date/Time Note Provider Source 2022-10-28 19:17:00-00:00 [id number] [place] [address] PATIENT NAME: MONICA BECK ADMIT DATE: 0 09/24/22 ACCOUNT NO: [id number] ROOM NO: [facility] AGE: 82 REPORT TYPE: 360 - QUERY RESPONSE DOCUMENT SEX: M ADMITTING PHYSICIAN:Kathya Maria MD ATTENDING PHYSICIAN:Kathya Maria MD Provider Query QUERY TEXT: Type Heart Failure 360MD Query related questions should be directed to: [phone] The medical record reflects the diagnosis of Acu te heart failure] in the [I6-6 Coding query], and pertin ent studies for type (e.g. echocardiogram, cardiac catheteri zation, abnormal EF) or pertinent clinical indicators f or acuity (e.g.5-8 Elevated BNP 331, IV diuretics, 5-8 Ec ho EF 45-49% and 5-15 Echo EF 40-44%.) Based on your clinical judgment, can you further clarify the type of the heart failure that represents t he clinical indicators listed below? The patient's Clinical Indicators include: 6-6 Coding query Acute heart failure 5-8 Echo shows EF 45-49%, 5-8 BNP 331 5-15 Echo shows EF 40-44% Options provided: -- Systolic -- Diastolic -- Systolic and Diastolic -- Left Ventricular Failure -- Biventricular Heart Failure -- High Output Heart Failure -- Right Heart Failure, Please specify if due to left heart failure. -- End Stage Heart Failure -- Other - I will add my own diagnosis -- Dismiss - Not applicable / Not valid -- Dismiss - Clinically unable to determine / Un known -- Assign to another provider QUERY RESPONSE: Patient had Systolic (HFrEF) Heart Failure. Query created by: Krzysztof Del Cid on 10/26/2022 9:47 AM at 1917 PATIENT NAME: MONICA BECK ACCOUNT #: [id number] 2022-10-25 18:00:00-00:00 [id number] [place] [address] PATIENT NAME: MONICA BECK ADMIT DATE: 0 09/24/22 ACCOUNT NO: [id number] ROOM NO: G.3362 AGE: 82 REPORT TYPE: 360 - QUERY RESPONSE DOCUMENT SEX: M ADMITTING PHYSICIAN:Kathya Maria MD ATTENDING PHYSICIAN:Kathya Maria MD Provider Query QUERY TEXT: Specificity General 360MD Query related questions should be directed to:Christopher xas [facility] Coding Query Helpline Please provide any known specificity for [Pulmon ravinder edema] documented in the [Hospitalist discharge summar y 10/04/2022]. Acute pulmnary edema Chronic pulmonary edema Other or unspecified diagnosis The patient's Clinical Indicators include: Hospitalist Progress Note 09/25/2022 Pulmonary edema - Likely due to aortic stenosis, BETTER Chest x-ray with bibasilar opacities - XR CHEST 1 V 09/26/2022 IMPRESSION: Moderate pulmonary edema versus infiltrates, pne umonia. Cardiology Consultation 09/27/2022 (1) Recent Impressions: Moderate pulmonary edema versus infiltrates, pne umonia. Hospitalist Consultation 09/24/2022 (4) Chief complaint: Chest pain Furosemide (LASIX 20MG INJ) 20 MG ONCE ONE IV (C AN) MED Options provided: -- Respond - Create new note now -- Dismiss - Not applicable / Not valid -- Dismiss - Clinically unable to determine / Un known -- Assign to another provider QUERY RESPONSE: Acute heart failure Query created by: Carlos Mast on 09/20 11:59 PM at 1800 PATIENT NAME: MONICA BECK ACCOUNT #: [id number] 2022-10-18 16:57:00-00:00 [id number] [place] [address] PATIENT NAME: MONICA BECK ADMIT DATE: 09/24/22 ACCOUNT NO: [id number] ROOM NO: G.3362 AGE: 82 REPORT TYPE: 360 - QUERY RESPONSE DOCUMENT SEX: M ADMITTING PHYSICIAN:Kathya Maria MD ATTENDING PHYSICIAN:Kathya Maria MD Provider Query QUERY TEXT: Condition General 360MD Query related questions should be directed to:Christopher shekhar [facility] Coding Query Helpline Based on your clinical judgement, can you please clarify if Pneumonia was confirmed, Pneumonia not confirmed , or other more appropriate diagnosis? The patient's Clinical Indicators include: Pneumonia-Hospitalist progress note 10/05/2022 cefazolin-MAR Small left pleural effusion.-Hospitalist darrion s note 10/05/2022 Options provided: -- Respond - Create new note now -- Dismiss - Not applicable / Not valid -- Dismiss - Clinically unable to determine / Un known -- Assign to another provider QUERY RESPONSE: Provider dismissed this query because it was not applicable to the patient or not a valid query. post op pulmonary congestion Query created by: Carlos Mast on 09/20 11:56 PM at 1657 PATIENT NAME: MONICA BECK ACCOUNT #: [id number] 2022-10-05 13:18:00-00:00 [id number] [place] [address] PATIENT NAME: MONICA BECK ADMIT DATE: 0 09/24/22 ACCOUNT NO: [id number] ROOM NO: [facility] AGE: 82 REPORT TYPE: eECHOCARDIOGRAM REPORT SEX: M ADMITTING PHYSICIAN:Kathya Maria MD ATTENDING PHYSICIAN:Kathya Maria MD *[place] [address] Limited Transthoracic Echocardiogram Patient: Monica Beck Study Date: 10/04/2022 BP: 107 / 55 Location: [facility] URN: [id number] 2526 : 1940 Age: 82 Height: 64 in / 162.6 cm Gender: M Weight: 168 .6 lb / 76.7 kg BMI/BSA: 29 kg/m 2 / 1.88 m 2 *Ordering Physician: * Analilia Erwin Physic *Interpreting Physician: * Ana Ramsey MD *Mounter: * Allyssa Siegel Indications: R/O PERICARDIAL EFFUSION. Study data: Transthoracic echocardiogram, limite d study. Procedure: Transthoracic echocardiography was performed. Im ages were obtained using a [employer] cardiac ultrasound machine. Image quality w as fair. Limited 2D and limited spectral Doppler. Location: Bedside. [facility] status: Inpatient. Patient room number: 3362. [...] PATIENT NAME: MONICA BECK ACCOUNT #: [id number] Right ventricle: Systolic function is normal. S ystolic pressure is increased. Ventricular septum: Septal motion [...] PATIENT NAME: MONICA BECK ACCOUNT #: [id number] Tricuspid valve Value 09/29/2022 Ref TR peak v 3.05 m/sec 3.5 <=2.8 Peak RV-RA 37 mm Hg 49 --------- júnior S Conclusions Summary: 1. Left ventricle: The [...] 1318 PATIENT NAME: MONICA BECK ACCOUNT #: [id number] 2022-10-05 10:51:00-00:00 [facility] REPORT#:[id number] REPORT STATUS: Signed DATE:10/05/22 TIME: 1051 PATIENT: MONICA BECK UNIT #: [id number] ROOM/BED: [place] [address] : [birth year] AGE: 82 SEX: M ATTEND: Nicolasa Maria MD ADM AUTHOR: Charlotte Fitzpatrick MD * ALL edits or amendments must be made on the el [employer]/computer document * Subjective Chief complaint: doing fine, no new issues. Review of Systems All systems rev neg: except as noted Objective General VS/I O: Vital Signs: Date Time Temp Pulse Resp B/P B/P Pulse O2 O2 F low FiO2 Mean Ox Delivery Rate 10/05 0941 98 Room air 21 10/05 0807 97.5 74 15 116/55 0.0 93 Room air 05/17 0600 75 28 116/57 82 97 10/05 0504 97.7 71 14 114/56 0.0 96 Room air 10/05 0459 66 35 114/56 80 95 10/05 0400 65 29 109/53 77 94 10/05 0200 60 25 104/51 73 93 10/05 0001 98.2 66 14 109/53 0.0 97 Room air 10/05 0000 66 25 109/53 78 97 10/04 2050 97 Room air 10/04 2031 98.4 76 14 131/60 0.0 97 Room [...] Human Lispro (HUMALOG) 0 Q6HR SUBQ Ipratropium Ollie (ATROVENT) 500 MCG RTQ2H PRN PRN INH [...] soft Extremities: no edema Musculoskeletal: normal inspection Neuro/SUPERVISOR LUMP ROOM: no motor deficits Skin: normal color Psychiatry: [...] (Auto) (14.0 - 32.0 %) 13.0 L [place] % (Auto) (4.8 - 9.0 %) 6.9 Eos % (Auto) (0.3 - 3.7 %) 2.1 Baso % (Auto) (0.0 - 2.0 %) 0.1 Neut # (Auto) (2.0 - 7.6 x10 3/uL) 6.51 Lymph # (Auto) (1.0 - 3.8 x10 3/uL) 1.10 [place] # (Auto) (0.1 - 0.8 x10 3/uL) [...] 2. Small left pleural effusion. Impression By: [email or web address] Gus Ramos Free Text Obj Notes Free Text Obj Notes: General appearance: alert, awake, oriented Head/Eyes: atraumatic, normocephalic ENT: moist mucosal membranes, normal pharynx Neck: non-tender, supple/no meningismus, no JVD Cardiovascular: normal capillary refill, normal heart sounds, regular rate rhythm Respiratory: aerating well, clear to auscultatio n, symmetric expansion Abdomen: non-tender, normal bowel sounds, soft, no distention Extremities: no clubbing, no cyanosis, no edema Neuro/SUPERVISOR LUMP ROOM: alert, oriented X 3, CNII-XII intact Skin: [...] an advanced directive His medical power of energy attorney is son [place] [...] . pending CTS clearance at 1054 RPT #:[id number] END OF REPORT 2022-10-05 09:29:00-00:00 [facility] ([facility]) Cardiology Progress Note REPORT#:[id number] REPORT STATUS: Signed DATE:10/05/22 TIME: 928 PATIENT: MONICA BECK UNIT #: [id number] ROOM/BED: 3362-1 : 42 AGE: 82 SEX: M ATTEND: Nicolasa Maria MD ADM AUTHOR: Geneva Silverman ACNP * ALL edits or amendments must be made on the [employer]/computer document * Objective General VS/I O: 24 [...] 97 10/04 2050 97 Room air 10/04 2031 36.9 76 14 131/60 0.0 97 Room air 10/04 2027 77 131/60 86 98 10/04 1731 37.0 [...] Human Lispro (HUMALOG) 0 Q6HR SUBQ Ipratropium Ollie (ATROVENT) 500 MCG RTQ2H PRN PRN INH [...] LE assessment: edema (trace) Musculoskeletal: normal inspection Neuro/SUPERVISOR LUMP ROOM: alert, oriented X 3, normal speech Skin: dry Psychiatry: normal affect, normal mood Results Findings/Data: Laboratory Tests 10/05 10/05 10/05 10/04 10/04 0558 0555 0002 2028 1717 Chemistry Sodium (134 - 147 mEq/L) 140 [...] (Auto) (14.0 - 32.0 %) 13.0 L [place] % (Auto) (4.8 - 9.0 %) 6.9 Eos % (Auto) (0.3 - 3.7 %) 2.1 Baso % (Auto) (0.0 - 2.0 %) 0.1 Neut # (Auto) (2.0 - 7.6 x10 3/uL) 6.51 Lymph # (Auto) (1.0 - 3.8 x10 3/uL) 1.10 [place] # (Auto) (0.1 - 0.8 x10 3/uL) [...] 2. Small left pleural effusion. Impression By: [email or web address] Gus Ramos Echo results: Summary: 1. Left ventricle: The [...] of DM, HLD, . He presented to [facility] with CP, found to have [...] Jakob Pa MD on at 2020 RPT #:[id number] END OF REPORT 2022-10-05 08:57:00-00:00 [facility] Cardiothoracic Surgery Prog REPORT#:[id number] REPORT STATUS: Signed DATE:10/05/22 TIME: 856 PATIENT: MONICA BECK UNIT #: [id number] ROOM/BED: [place] [address] : 42 AGE: 82 SEX: M ATTEND: Nicolasa Maria MD ADM AUTHOR: Analilia Erwin Physic * ALL edits or amendments must be made on the [employer]/computer document * General Post-op: day 9 Status [...] Ox 93 10/05 08 B/P 116/55 10/05 806 B/P Mean 0.0 10/05 806 O2 Delivery Room air 10/05 806 Temp 97.5 05/17 0807 Pulse 74 05/17 0807 Resp 15 10/05 0807 FiO2 21 [...] soft, non-tender, no distention Extremities: moves all Neuro/SUPERVISOR LUMP ROOM: alert, oriented X 3, normal speech, n o motor deficits Psychiatry: normal affect, normal mood Diagnosis, Assessment Plan Hospital course to date: Mr Beck a very pleasant 82-year-old male with past medical history of diabetes, hyperlipidemia, restless leg syndrome aortic valve stenosis who presented to [facility] complaining of substernal chest pain across the anterior chest positive for n ausea and diaphoresis. CT chest showed small to moderate bilateral pleural effusions, ascending aorta measuring 4.2 cm. Cardiac enzymes elevated pat ient deemed non-STEMI. He was taken to the [facility] coronary angiogram revealed severe multivessel coronary artery disease. Patient started on heparin drip and transferred to [facility] for possible CABG and AVR. PLAN Coronary angiogram images will be uploaded in [employer] system Dr Maria explained to the patient [...] stenosis bilaterally Noncontrasted CT chest performed at [facility] reviewed with Dr. Maria. Images will be uploaded in our system. Coronary angiogram images uploaded in Draft o Plan for CABG and AVR tomorr [...] Cardiac: remains sinus rhtyhm. Pacing wires on tandby GI: Continue Bowel regimen, no bm [...] and echo completed Consultants: cardiovascular surgery at 1534 RPT #:[id number] END OF REPORT 2022-10-04 15:01:00-00:[address] [facility] ([facility]) Hospitalist Discharge Summary REPORT#:[id number] REPORT STATUS: Signed DATE:10/04/22 TIME: 1501 PATIENT: MONICA BECK UNIT #: [id number] ROOM/BED: [place] [address] : 42 AGE: 82 SEX: M ATTEND: Nicolasa Maria MD ADM AUTHOR: Charlotte Fitzpatrick MD * ALL edits or amendments must be made on the el ectronic/computer document * General Information Problem List/A P: [...] and aortic stenosis is transferred here from [facility] beds at the [facility], where he presen tamra today with complaint of chest pain for the past few weeks. Patie nt complained of substernal chest pain associated with diaphoresis. He was found to hav e elevated troponin I and cardiology was consulted. Patient had left heart catheterization, the results of which are not available at this time. He was then transferred to [facility] for evaluation by cardiothoracic surge roddy. CTS team evaluated, and performed CABG. Patient [...] an advanced directive His medical power of energy attorney is son Guille de la vega [...] soft Extremities: no edema Musculoskeletal: normal inspection Neuro/SUPERVISOR LUMP ROOM: no motor deficits Skin: normal color Psychiatry: [...] Extremities: no clubbing, no cyanosis, no edema Neuro/SUPERVISOR LUMP ROOM: alert, oriented X 3, CNII-XII intact Skin: [...] follow up timeframe: In 1-2 weeks at 1405 RPT #:[id number] END OF REPORT 2022-10-04 14:36:00-00:00 [facility] Hospitalist Progress Note REPORT#:[id number] REPORT STATUS: Signed DATE:10/04/22 TIME: 1436 PATIENT: MONICA BECK UNIT #: [id number] ROOM/BED: [place] [address] : 42 AGE: 82 SEX: M ATTEND: Ab romain Maria MD ADM AUTHOR: Charlotte Fitzpatrick MD * ALL edits or amendments must be made on the el ectronic/computer document * Subjective Chief complaint: patient doing [...] air 10/04 0958 98 Room air 21 10/04 0806 98.1 78 20 141/67 0.0 96 Room air 10/04 0600 74 27 136/63 91 94 / 0528 97.9 71 14 122/60 0.0 95 Room air / 0500 73 24 122/60 86 90 05/ 0400 72 25 148/65 94 97 / 0300 75 139/70 97 99 / 0231 97.9 71 14 132/68 0.0 95 Room air / 0227 75 25 132/68 92 95 / 0200 69 27 137/63 91 91 / 0153 69 31 93 / 0148 71 33 139/65 93 / 0100 66 26 132/61 88 95 / 0000 67 24 128/60 86 96 10/03 2300 70 22 140/70 99 93 / 2200 78 30 148/72 103 96 05/ 2100 76 28 156/71 102 96 10/04 1999 69 18 156/68 98 99 / 1900 72 26 145/66 95 99 10/03 1701 74 28 178/75 108 99 10/03 1600 68 26 140/63 91 97 10/03 1531 95 Room air 21 10/03 1500 66 135/64 92 99 24 hour I O ending at 0700: 10/04 0700 10/03 1900 Intake Total Output Total 1999 475 Balance -1999 -475 Number 1 Bowel Movements [...] Human Lispro (HUMALOG) 0 Q6HR SUBQ Ipratropium Ollie (ATROVENT) 500 MCG RTQ2H PRN PRN INH [...] soft Extremities: no edema Musculoskeletal: normal inspection Neuro/SUPERVISOR LUMP ROOM: no motor deficits Skin: normal color Psychiatry: [...] (Auto) (14.0 - 32.0 %) 9.7 L [place] % (Auto) (4.8 - 9.0 %) 7.8 Eos % (Auto) (0.3 - 3.7 %) 0.9 Baso % (Auto) (0.0 - 2.0 %) 0.2 Neut # (Auto) (2.0 - 7.6 x10 3/uL) 7.88 H Lymph # (Auto) (1.0 - 3.8 x10 3/uL) 0.96 L [place] # (Auto) (0.1 - 0.8 x10 3/uL) [...] Extremities: no clubbing, no cyanosis, no edema Neuro/SUPERVISOR LUMP ROOM: alert, oriented X 3, CNII-XII intact Skin: [...] an advanced directive His medical power of energy attorney is son Guille de la vega 09/29- POD #3 AVR and CABG x2 . ?pneumoperitoneuam on CXR. awaiting critical care recs. 10/01- POD 5, central line DC'd, ivf's stopped, kidney function stable, king cath remains x1 more day 10/02: Plan to transfer to [facility] 1 10/03- Continue plan per cards, and CTS. Transfer to [facility] 10/04 pending placement at 1438 RPT #:[id number] END OF REPORT 2022-10-04 11:47:00-00:00 [facility] Rehab Progress Note REPORT#:[id number] REPORT STATUS: Signed DATE:10/04/22 TIME: 1147 PATIENT: MONICA BECK UNIT #: [id number] ROOM/BED: [place] [address] : 42 AGE: 82 SEX: M ATTEND: Nicolasa Maria MD ADM AUTHOR: Starr Wisdom MEDIA RELATIONS COORDINATOR * ALL edits or amendments must be made on the [employer] document * Subjective Chief complaint: Rehab follow-up [...] 74 27 136/63 91 94 10/04 0528 97.9 71 14 122/60 0.0 95 Room air 10/04 0500 73 24 122/60 86 90 / 0400 72 25 148/65 94 97 10/04 0300 75 139/70 97 99 10/04 0231 97.9 71 14 132/68 0.0 95 Room air 05/16 0227 75 25 132/68 92 95 10/04 0200 69 27 137/63 91 91 10/04 0153 69 31 93 10/04 0148 71 33 139/65 93 10/04 0100 66 26 132/61 88 95 10/04 0000 67 24 128/60 86 96 05 2300 70 22 140/70 99 93 10/03 2200 78 30 148/72 103 96 10/03 2100 76 28 156/71 102 96 10/03 2000 69 18 156/68 98 99 10/03 1900 72 26 145/66 95 99 10/03 1701 74 28 178/75 108 99 / 1600 68 26 140/63 91 97 10/03 1531 95 Room air 21 10/03 1500 66 135/64 92 99 05 1400 77 146/99 119 93 10/03 1300 65 153/67 97 96 10/03 1200 65 25 141/60 87 96 PATIENT [...] Human Lispro (HUMALOG) 0 Q6HR SUBQ Ipratropium Ollie (ATROVENT) 500 MCG RTQ2H PRN PRN INH [...] swelling (minimal ), moving all ext AG Neuro/SUPERVISOR LUMP ROOM: alert, oriented X 3, CNII-XII intact, normal speech, reflexes equal bilat, no motor deficits, no sensory deficits Results Findings/Data: Laboratory Tests: 10/04 10/04 10/04 10/03 10/03 0530 0456 0115 0789 1640 Chemistry Sodium (134 - 147 mEq/L) [...] (Auto) (14.0 - 32.0 %) 9.7 L [place] % (Auto) (4.8 - 9.0 %) 7.8 Eos % (Auto) (0.3 - 3.7 %) 0.9 Baso % (Auto) (0.0 - 2.0 %) 0.2 Neut # (Auto) (2.0 - 7.6 x10 3/uL) 7.88 H Lymph # (Auto) (1.0 - 3.8 x10 3/uL) 0.96 L [place] # (Auto) (0.1 - 0.8 x10 3/uL) [...] awareness of sternal precaution. Patient verbalized understan willis Rehab attestation: Face to face exam completed. Treatment plan disc ussed with patient. at 1151 RPT #:[id number] END OF REPORT 2022-10-04 10:08:00-00:00 [facility] Nephrology Progress Note REPORT#:[id number] REPORT STATUS: Signed DATE:10/04/22 TIME: 1008 PATIENT: MONICA BECK UNIT #: [id number] ROOM/BED: [place] [address] : 42 AGE: 82 SEX: M ATTEND: Nicolasa Maria MD ADM AUTHOR: Nila Cheung MD * ALL edits or amendments must be made on the el [employer]/computer document * Subjective Chief complaint: follow up [...] 96 05/15 1112 99 Room air 21 /15 1100 67 19 141/66 95 95 05/15 1020 78 26 135/63 90 100 24 hour I O ending at 0700: 10/04 0700 15 1900 Intake Total Output Total 1999 475 Balance -1999 -475 Number 1 Bowel Movements [...] Human Lispro (HUMALOG) 0 Q6HR SUBQ Ipratropium Ollie (ATROVENT) 500 MCG RTQ2H PRN PRN INH [...] p ain Extremities: no edema, no gangrene Neuro/SUPERVISOR LUMP ROOM: alert, oriented X 3, CN II-XII intact [...] (Auto) (14.0 - 32.0 %) 9.7 L [place] % (Auto) (4.8 - 9.0 %) 7.8 Eos % (Auto) (0.3 - 3.7 %) 0.9 Baso % (Auto) (0.0 - 2.0 %) 0.2 Neut # (Auto) (2.0 - 7.6 x10 3/uL) 7.88 H Lymph # (Auto) (1.0 - 3.8 x10 3/uL) 0.96 L [place] # (Auto) (0.1 - 0.8 x10 3/uL) [...] Electronically Signed by Nila Cheung MD on 0 10/06/22 at 9244 RPT #:[id number] END OF REPORT 2022-10-04 08:59:00-00:[address] [facility] ([facility]) Cardiology Progress Note REPORT#:[id number] REPORT STATUS: Signed DATE:10/04/22 TIME: 858 PATIENT: MONICA BECK UNIT #: [id number] ROOM/BED: [place] [address] : 42 AGE: 82 SEX: M ATTEND: Nicolasa Maria MD ADM AUTHOR: Geneva Silverman ACNP * ALL edits or amendments must be made on the [employer] document * Subjective Comments: c/o low back pain Objective General VS/I O: 24 hour I O ending at 0700: 10/04 0700 10/03 1900 Intake Total Output Total 1999 475 Balance -1999 -475 Number 1 Bowel Movements Output, Urine 1999 475 Patient 77.1 kg Weight Weight Standing scale Measurement Method Vital Signs: Date Time Temp Pulse Resp B/P B/P Pulse O2 O2 F low FiO2 Mean Ox Delivery Rate 10/04 0806 36.7 78 20 141/67 0.0 96 Room air /16 0600 74 27 136/63 91 94 / 0528 36.6 71 14 122/60 0.0 95 Room air /16 0500 73 24 122/60 86 90 05/16 0400 72 25 148/65 94 97 /16 0300 75 139/70 97 99 / 0231 36.6 71 14 132/68 0.0 95 Room air /16 0227 75 25 132/68 92 95 05/16 0200 69 27 137/63 91 91 05/16 0153 69 31 93 05/16 0148 71 33 139/65 93 05/16 0100 66 26 132/61 88 95 05/16 0000 67 24 128/60 86 96 05/15 2300 70 22 140/70 99 93 05/15 2200 78 30 148/72 103 96 05/15 2100 76 28 156/71 102 96 / 2000 69 18 156/68 98 99 05/15 1900 72 26 145/66 95 99 / 1701 74 28 178/75 108 99 05/15 1600 68 26 140/63 91 97 05/15 1531 95 Room air 21 10/03 1500 66 135/64 92 99 10/03 1400 77 146/99 119 93 10/03 1300 65 153/67 97 96 10/03 1200 65 25 141/60 87 96 10/03 1112 99 Room air 21 10/03 1100 67 19 141/66 95 95 10/03 1020 78 26 135/63 90 100 10/03 1000 71 29 123/57 79 97 10/03 0900 72 27 135/64 92 100 PATIENT [...] Human Lispro (HUMALOG) 0 Q6HR SUBQ Ipratropium Ollie (ATROVENT) 500 MCG RTQ2H PRN PRN INH [...] LE assessment: edema (trace) Musculoskeletal: normal inspection Neuro/SUPERVISOR LUMP ROOM: alert, oriented X 3, normal speech Skin: [...] (Auto) (14.0 - 32.0 %) 9.7 L [place] % (Auto) (4.8 - 9.0 %) 7.8 Eos % (Auto) (0.3 - 3.7 %) 0.9 Baso % (Auto) (0.0 - 2.0 %) 0.2 Neut # (Auto) (2.0 - 7.6 x10 3/uL) 7.88 H Lymph # (Auto) (1.0 - 3.8 x10 3/uL) 0.96 L [place] # (Auto) (0.1 - 0.8 x10 3/uL) [...] L Results: labs reviewed, vital signs reviewed, hoda personally rev'd Telemetry Interpretation: sinus rhythm Diagnosis, Assessment Plan Plan discussed with: patient, spouse/partner Free Text DxA P Notes Free Text DxA P Notes: 82 YO male with MHx of DM, HLD, . He presented to [facility] with CP, found to have [...] Jakob Pa MD on at 2020 RPT #:[id number] END OF REPORT 2022-10-04 08:53:00-00:00 [facility] Cardiothoracic Surgery Prog REPORT#:[id number] REPORT STATUS: Signed DATE:10/04/22 TIME: 852 PATIENT: MONICA BECK UNIT #: [id number] ROOM/BED: [address] : 42 AGE: 82 SEX: M ATTEND: Nicolasa Maria MD ADM AUTHOR: Analilia Erwin Physic * ALL edits or amendments must be made on the [employer]/computer document * General Post-op: day 8 Status [...] Result Date Time Pulse Ox 96 10/04 0806 B/P 141/67 10/04 0806 B/P Mean 0.0 10/04 0806 O2 Delivery Room air 10/04 0806 Temp 98.1 10/04 0806 Pulse 78 10/04 0806 Resp 20 10/04 0806 FiO2 21 10/03 1531 O2 Flow Rate [...] soft, non-tender, no distention Extremities: moves all Neuro/SUPERVISOR LUMP ROOM: alert, oriented X 3, normal speech, n o motor deficits Psychiatry: normal affect, normal mood Diagnosis, Assessment Plan Hospital course to date: Mr Beck a very pleasant 82-year-old male with past medical history of diabetes, hyperlipidemia, restless leg syndrome aortic valve stenosis who presented to [facility] t complaining of substernal chest pain across the anterior chest positive for n ausea and diaphoresis. CT chest showed small to moderate bilateral pleural effusions, ascending aorta measuring 4.2 cm. Cardiac enzymes elevated pat ient deemed non-STEMI. He was taken to the [facility] coronary angiogram revealed severe multivessel coronary artery disease. Patient started on heparin drip and transferred to [facility] for possible CABG and AVR. PLAN Coronary angiogram images will be uploaded in [employer] r system Dr Maria explained to the patient [...] stenosis bilaterally Noncontrasted CT chest performed at [facility] reviewed with Dr. Maria. Images will be uploaded in our system. Coronary angiogram images uploaded in Draft o Plan for CABG and AVR tomorr [...] cardiovascular surgery at 0859 at 0237 RPT #:[id number] END OF REPORT 2022-10-03 13:57:00-00:[address] [facility] ([facility]) Hospitalist Progress Note REPORT#:[id number] REPORT STATUS: Signed DATE:10/03/22 TIME: 1357 PATIENT: MONICA BECK UNIT #: [id number] ROOM/BED: [place] [address] : 42 AGE: 82 SEX: M ATTEND: Nicolasa Maria MD ADM AUTHOR: Charlotte Fitzpatrick MD * ALL edits or amendments must be made on the [employer] document * Subjective Chief complaint: no acute [...] 99 10/02 2013 100 Room air 21 10/02 2001 65 140/66 95 97 10/02 1901 66 154/69 99 99 10/02 1708 25 10/02 1700 68 143/67 97 100 10/02 1632 97 Room air 10/02 1600 67 135/64 92 98 10/02 [...] Human Lispro (HUMALOG) 0 Q6HR SUBQ Ipratropium Ollie (ATROVENT) 500 MCG RTQ2H PRN PRN INH [...] soft Extremities: no edema Musculoskeletal: normal inspection Neuro/SUPERVISOR LUMP ROOM: no motor deficits Skin: normal color Psychiatry: [...] 5.0 g/dL) 3.30 L Laboratory Tests 10/03 0218 Hematology WBC (4.5 [...] (Auto) (14.0 - 32.0 %) 11.2 L [place] % (Auto) (4.8 - 9.0 %) 8.4 Eos % (Auto) (0.3 - 3.7 %) 1.5 Baso % (Auto) (0.0 - 2.0 %) 0.1 Neut # (Auto) (2.0 - 7.6 x10 3/uL) 7.05 Lymph # (Auto) (1.0 - 3.8 x10 3/uL) 1.02 [place] # (Auto) (0.1 - 0.8 x10 3/uL) [...] nonspecific left retrocardiac/basi lar opacities. Impression By: LisaSWKan - Greg Britton M.D. Free Text Obj [...] Extremities: no clubbing, no cyanosis, no edema Neuro/SUPERVISOR LUMP ROOM: alert, oriented X 3, CNII-XII intact Skin: [...] an advanced directive His medical power of energy attorney is son Guille Francois t 09/29- POD #3 AVR and CABG x2 . ?pneumoperitoneuam on CXR. awaiting critical care recs. 10/01- POD 5, central line DC'd, ivf's stopped, kidney function stable, king cath remains x1 more day 10/02: Plan to transfer to [facility] 1 10/03- Continue plan per cards, and CTS. Transfer to [facility] at 1401 RPT #:[id number] END OF REPORT 2022-10-03 13:54:00-00:[address] [facility] ([facility] Critical Care Progress Note REPORT#:[id number] REPORT STATUS: Signed DATE:10/03/22 TIME: 1354 PATIENT: MONICA BECK UNIT #: [id number] ROOM/BED: [place] [address] : 42 AGE: 82 SEX: M ATTEND: Nicolasa Maria MD ADM AUTHOR: Milton Mast MD * ALL edits or amendments must be made on the el [employer]computer document * Subjective Chief complaint: CABG HPI: [...] Human Lispro (HUMALOG) 0 Q6HR SUBQ Ipratropium Ollie (ATROVENT) 500 MCG RTQ2H PRN PRN INH [...] (Auto) (14.0 - 32.0 %) 11.2 L [place] % (Auto) (4.8 - 9.0 %) 8.4 Eos % (Auto) (0.3 - 3.7 %) 1.5 Baso % (Auto) (0.0 - 2.0 %) 0.1 Neut # (Auto) (2.0 - 7.6 x10 3/uL) 7.05 Lymph # (Auto) (1.0 - 3.8 x10 3/uL) 1.02 [place] # (Auto) (0.1 - 0.8 x10 3/uL) [...] 0.1 x10 3/uL) 0. 02 Laboratory Tests 10/03/22 0218: [Embedded Image Not Available] 10/03/22 0218: [Embedded Image Not Available] Radiology data Recent [...] Musculoskeletal: normal inspection, no muscle sp asm Neuro/SUPERVISOR LUMP ROOM: Alert and oriented x3, CNII-XII gross ly [...] MD on 09/19 10/11 at 1420 RPT #:[id number] END OF REPORT 2022-10-03 10:51:00-00:[address] [facility] ([facility]) Nephrology Progress Note REPORT#:[id number] REPORT STATUS: Signed DATE:10/03/22 TIME: 1051 PATIENT: MONICA BECK UNIT #: [id number] ROOM/BED: [place] [address] : 42 AGE: 82 SEX: M ATTEND: Nicolasa Maria MD ADM AUTHOR: Nila Cheung MD * ALL edits or amendments must be made on the [employer]/computer document * Subjective Chief complaint: follow up [...] 99 10/02 2013 100 Room air 21 10/02 2001 65 140/66 95 97 10/02 1901 66 154/69 99 99 10/02 1708 25 10/02 1700 68 143/67 97 100 10/02 1632 97 Room air 21 10/02 1600 67 135/64 92 98 10/02 1500 64 25 139/64 92 100 10/02 1400 66 22 123/60 87 100 10/02 1300 75 135/100 115 98 10/02 1200 97.4 10/02 1200 72 25 139/61 [...] Human Lispro (HUMALOG) 0 Q6HR SUBQ Ipratropium Ollie (ATROVENT) 500 MCG RTQ2H PRN PRN INH [...] WATER) 125 ML A SDIR PRN IV (CKD) Dextrose/Water (DEXTROSE 10% IN [...] p ain Extremities: no edema, no gangrene Neuro/SUPERVISOR LUMP ROOM: alert, oriented X 3, CN II-XII intact [...] (Auto) (14.0 - 32.0 %) 11.2 L [place] % (Auto) (4.8 - 9.0 %) 8.4 Eos % (Auto) (0.3 - 3.7 %) 1.5 Baso % (Auto) (0.0 - 2.0 %) 0.1 Neut # (Auto) (2.0 - 7.6 x10 3/uL) 7.05 Lymph # (Auto) (1.0 - 3.8 x10 3/uL) 1.02 [place] # (Auto) (0.1 - 0.8 x10 3/uL) [...] lar opacities. Impression By: [email or web address] - Greg Brittno M.D. Diagnosis, Assessment Plan Free Text A [...] Nila Cheung MD on at 1422 RPT #:[id number] END OF REPORT 2022-10-03 10:08:00-00:[address] [facility] ([facility]) Cardiology Progress Note REPORT#:[id number] REPORT STATUS: Signed DATE:10/03/22 TIME: 1008 PATIENT: MONICA BECK UNIT #: [id number] ROOM/BED: [place] [address] : 42 AGE: 82 SEX: M ATTEND: Nicolasa Maria MD ADM AUTHOR: Geneva Silverman [employer] DAMAGE FIELD APPRAISER * ALL edits or amendments must be made on the [employer] document * Subjective Comments: c/o tailbone pain. [...] 10/03 0100 62 21 132/63 91 98 15 0000 66 20 151/70 100 10/02 2314 72 22 170/72 104 97 10/02 2201 79 178/78 112 98 10/02 2100 68 22 166/72 104 99 10/02 2012 100 Room air 21 10/02 2001 65 140/66 95 97 10/02 1901 66 154/69 99 99 10/02 1708 25 05 1700 68 143/67 97 100 10/02 1632 97 Room air 10/02 1600 67 135/64 92 98 10/02 [...] Human Lispro (HUMALOG) 0 Q6HR SUBQ Ipratropium Ollie (ATROVENT) 500 MCG RTQ2H PRN PRN INH [...] LE assessment: edema (trace) Musculoskeletal: normal inspection Neuro/SUPERVISOR LUMP ROOM: alert, oriented X 3, normal speech Skin: [...] (Auto) (14.0 - 32.0 %) 11.2 L [place] % (Auto) (4.8 - 9.0 %) 8.4 Eos % (Auto) (0.3 - 3.7 %) 1.5 Baso % (Auto) (0.0 - 2.0 %) 0.1 Neut # (Auto) (2.0 - 7.6 x10 3/uL) 7.05 Lymph # (Auto) (1.0 - 3.8 x10 3/uL) 1.02 [place] # (Auto) (0.1 - 0.8 x10 3/uL) [...] nonspecific left retrocardiac/basi lar opacities. Impression By: LisaSW - Greg Britton M.D. Results: labs reviewed, vital signs reviewed, [facility] personally rev'd Telemetry Interpretation: sinus rhythm Diagnosis, Assessment Plan Plan discussed with: patient, spouse/partner, nu rse Free Text DxA P Notes Free Text DxA P Notes: 82 YO male with MHx of DM, HLD, . [facility], found to have NSTEMI. LHC [...] Jakob Pa MD on at 2020 RPT #:[id number] END OF REPORT 2022-10-03 09:16:00-00:00 [facility] ([facility]) Adult General Consultation REPORT#:[id number] REPORT STATUS: Signed DATE:10/03/22 TIME: 915 PATIENT: MONICA BECK UNIT #: [id number] ROOM/BED: [place] [address] : 42 AGE: 82 SEX: M ATTEND: Nicolasa Maria MD ADM AUTHOR: Jacinto Wisdom * ALL edits or amendments must be made on the [employer] document * History of Present Illness Reason for consult: PMR consult HPI: Mr Beck a very pleasant 82-year-old male with past medical history of diabetes, hyperlipidemia, restless leg syndrome aortic valve stenosis who presented to [facility] complaining of substernal chest pain across the anterior chest positive for n ausea and diaphoresis. CT chest showed small to moderate bilateral pleural effusions, ascending aorta measuring 4.2 cm. Cardiac enzymes elevated pat ient deemed non-STEMI. He was taken to the [facility] coronary angiogram revealed severe multivessel coronary artery disease. Patient started on heparin drip and transferred to [facility]. Patient taken to surgery and underwent AVR [...] BEDTIME 09/26 2100 AC 10/02 (Melatonin) PO 10/26 2059 2155 Autonomic Drugs Sig/Jocy Start time Last Medication Dose Route Stop Time Status Admin Ipratropium Ollie 500 MCG RTQ2H PRN PRN 09/29 1501 [...] Admin Ferrous Sulfate 325 MG DAILY 09/29 0900 AC 09/19 5 (FERROUS SULFATE) PO 10/29 0859 0809 Clopidogrel Bisulfate 75 MG DAILY 09/27 0900 AC 10/03 (Plavix) PO 10/27 0859 0810 [...] 2099 AC 10/03 (CORDARONE) PO 10/26 2058 08 Metoprolol Tartrate 12.5 MG Q12HR 09/26 2099 AC 10/03 (LOPRESSOR) PO 10/26 2058 08 Nitroglycerin/ 250 ML ASDIR 09/26 151 AC Dextrose IV 10/26 151 (NITROGLYCERIN 50,000MCG/D5W 250ML) Central Nervous System Agents Sig/Jocy Start time Last Medication Dose Route Stop Time Status Admin Fentanyl Citrate 50 MCG Q6H PRN PRN 10/02 023 AC 10/02 (SUBLIMAZE) IV 10/07 Aspirin 81 MG DAILY 09/26 2100 AC 10/03 (ASPIRIN) PO 10/26 Magnesium Sulfate 100 ML ASDIR PRN 09/26 1515 A C (MAGNESIUM SULFATE IV 10/26 1514 4GM/SWFI 100ML) Magnesium Sulfate 50 ML ASDIR PRN 09/26 1515 AC 10/01 (MAGNESIUM SULFATE IV 10/26 151 0634 2GM/SWFI 50ML) Magnesium Sulfate/ 100 ML ASDIR PRN 09/26 1515 AC 09/30 Dextrose IV 10/26 151 0636 (MAGNESIUM SULFATE 1GM/D5W 100ML) Electrolytic, Caloric, [...] (DEXTROSE 10% IN IV 10/26 151 WATER) Potassium Chloride 100 ML ASDIR PRN 09/26 1515 AC 09/26 (KCL 20MEQ/SWFI IV 10/26 1514 1750 100ML) Sodium Bicarbonate 50 MEQ ASDIR PRN 09/26 1515 AC (SODIUM BICARBONATE) IV 10/26 1514 Sodium Chloride 250 ML Q24H 09/26 1515 DC (SODIUM CHLORIDE IV 10/26 1514 0.9%) Gastrointestinal Drugs Sig/Jocy Start time Last Medication Dose Route Stop Time Status Admin Bisacodyl 10 MG ONCE PRN 09/28 1200 AC (DULCOLAX) RECTAL 10/28 1159 Polyethylene Glycol 17 GM DAILY 09/27 09 AC 0 10/02 (MIRALAX) PO 10/27 0859 09 Pantoprazole 40 MG DAILY@0600 09/27 0600 AC (PROTONIX) PO 10/27 0559 0630 Docusate Sodium 100 MG BID 09/26 2099 AC 10/03 (COLACE) PO 10/26 2058 08 Sennosides 17.2 MG BEDTIME 09/26 2099 AC 10/02 (Senna Lax 8.6 MG PO 10/26 2058 215 TABLET) Ondansetron HCl 4 MG Q6H PRN PRN 09/26 1515 AC (ZOFRAN) IV 10/26 1514 Hormones And Synthetic Substit Sig/Jocy Start time Last Medication Dose Route Stop Time Status Admin Insulin Glargine 15 UNIT BID 10/01 2099 AC 09/19 5 (Semglee) SUBQ 10/31 2058 08 Insulin Human Lispro 0 Q6HR 09/29 1800 AC 10/03 (HUMALOG) SUBQ 10/29 175 0637 Glucagon 1 MG ASDIR PRN 09/26 151 AC (GLUCAGON) IM 10/26 1514 Skin And Mucous Membrane Agent Sig/Jocy Start time Last Medication Dose Route Stop Time Status Admin Mupirocin 1 APPLIC BID 09/28 09 DC 10/02 (BACTROBAN 2% 22 GM NASAL 10/02 OINTMENT) Vitamins Sig/Jocy Start time Last Medication [...] 134/60 10/03 0800 B/P Mean 87 10/03 08 Pulse 71 10/03 0800 Resp 23 10/03 [...] range of motion, no mu scle spasm Neuro/SUPERVISOR [employer] ROOM: alert, oriented X 3 Skin: surgical incisions [...] (Auto) (14.0 - 32.0 %) 11.2 L [place] % (Auto) (4.8 - 9.0 %) 8.4 Eos % (Auto) (0.3 - 3.7 %) 1.5 Baso % (Auto) (0.0 - 2.0 %) 0.1 Neut # (Auto) (2.0 - 7.6 x10 3/uL) 7.05 Lymph # (Auto) (1.0 - 3.8 x10 3/uL) 1.02 [place] # (Auto) (0.1 - 0.8 x10 3/uL) [...] nonspecific left retrocardiac/basi lar opacities. Impression By: LisaSWKan - Greg Britton M.D. Diagnosis, Assessment Plan [...] ambulat ing 250 feet Consult SNF in [facility] closer to [facility]. You for referral Electronically Signed by Jacinto Wisdom on 0 10/03/22 at 1654 RPT #:[id number] END OF REPORT 2022-10-03 08:42:00-00:00 [facility]L [facility] Cardiothoracic Surgery Prog REPORT#:[id number] REPORT STATUS: Signed DATE:10/03/22 TIME: 08 PATIENT: MONICA BECK UNIT #: [id number] ROOM/BED: [place] [address] : 42 AGE: 82 SEX: M ATTEND: Ab romain Maria MD ADM AUTHOR: Kathya Maria MD * ALL edits or amendments must be made on the [employer]/computer document * General Post-op: day 7 Status [...] 10/03 0800 O2 Delivery Nasal cannula 10/03 420 O2 Flow Rate 1 10/03 420 FiO2 21 10/02 2012 Temp 36.3 10/02 [...] soft, non-tender, no distention Extremities: moves all Neuro/[employer]PER[employer]OR [employer] ROOM: alert, oriented X 3, normal speech, n [...] Human Lispro (HUMALOG) 0 Q6HR SUBQ Ipratropium Ollie (ATROVENT) 500 MCG RTQ2H PRN PRN INH [...] (Auto) (14.0 - 32.0 %) 11.2 L [place] % (Auto) (4.8 - 9.0 %) 8.4 Eos % (Auto) (0.3 - 3.7 %) 1.5 Baso % (Auto) (0.0 - 2.0 %) 0.1 Neut # (Auto) (2.0 - 7.6 x10 3/uL) 7.05 Lymph # (Auto) (1.0 - 3.8 x10 3/uL) 1.02 [place] # (Auto) (0.1 - 0.8 x10 3/uL) [...] (0.0 - 0.1 x10 3/uL) 0. 02 Radiology data: Recent Impressions: RADIOLOGY - XR CHEST 1 V 10/03 0520 Report Impression - Status: SIGNED Entered: 10/03/2022 0716 IMPRESSION: New mild bilateral interstitial opacities, possi ilan mild volume overload. New nonspecific left retrocardiac/basi lar opacities. Impression By: LisaSWKan - Greg Britton M.D. Results: labs reviewed, vital signs stable, rybhaskar m personally rev'd, x-ray personally reviewed, current med profile rev'd Diagnosis, Assessment Plan Hospital course to date: Mr Beck a very pleasant 82-year-old male with past medical history of diabetes, hyperlipidemia, restless leg syndrome aortic valve stenosis who presented to [facility] complaining of substernal chest pain across the anterior chest positive for n ausea and diaphoresis. CT chest showed small to moderate bilateral pleural effusions, ascending aorta measuring 4.2 cm. Cardiac enzymes elevated pat ient deemed non-STEMI. He was taken to the [facility] coronary angiogram revealed severe multivessel coronary artery disease. Patient started on heparin drip and transferred to [facility] for possible CABG and AVR. PLAN Coronary angiogram images will be uploaded in Zbird system Dr Maria explained to the patient [...] stenosis bilaterally Noncontrasted CT chest performed at [facility] reviewed with Dr. Maria. Images will be uploaded in our system. Coronary angiogram images uploaded in Draft o Plan for CABG and AVR tomorr [...] UO: Urine output low, will consult renal. Maryannen t was started on dopamine yesterday subsequently [...] care unit Consultants: cardiovascular surgery at 0237 RPT #:[id number] END OF REPORT 2022-10-03 08:39:00-00:00 [id number] [place] [address] PATIENT NAME: MONICA BECK ADMIT DATE: 09/24/22 ACCOUNT NO: [id number] ROOM NO: [facility] AGE: 82 REPORT TYPE: eECHOCARDIOGRAM REPORT SEX: M ADMITTING PHYSICIAN:Kathya Maria MD ATTENDING PHYSICIAN:Kathya Maria MD *[facility]* [address] [place] [address] Limited Transthoracic Echocardiogram Patient: Monica Beck Study Date: 09/29/2022 BP: 95 / 56 Location: [facility] URN: [id number] 2526 : 1940 Age: 82 Height: 64 in / 162.6 cm Gender: M Weight: 184 .6 lb / 83.9 kg BMI/BSA: 31.8 kg/m 2 / 1.98 m 2 *Ordering Physician: * Milton Mast *Interpreting Physician: * Jakob Pa MD *Mounter: * Claudia Mayorga [facility] Indications: R/O PERICARDIAL EFFUSION. Study data: Transthoracic [...] PATIENT NAME: MONICA BECK ACCOUNT #: [id number] Mitral valve: There is mild regurgitation. Tricuspid [...] PATIENT NAME: MONICA BECK ACCOUNT #: [id number] Mitral valve Value 09/28/2022 Ref Peak E [...] PATIENT NAME: MONICA BECK ACCOUNT #: [id number] 2022-10-02 18:00:00-00:00 [facility] Critical Care Progress Note REPORT#:[id number] REPORT STATUS: Signed DATE:10/02/22 TIME: 1800 PATIENT: MONICA BECK UNIT #: [id number] ROOM/BED: [place] [address] : 42 AGE: 82 SEX: M ATTEND: Nicolasa Maria MD ADM AUTHOR: Sade Arana MD * ALL edits or amendments must be made on the [employer]/computer document * See Addendum Subjective Chief complaint: [...] Human Lispro (HUMALOG) 0 Q6HR SUBQ Ipratropium Ollie (ATROVENT) 500 MCG RTQ2H PRN PRN INH [...] IV Sodium Bicarbonate (SODIUM BICARBONATE) 50 MEQ ASDIR PRN IV Sodium Chloride (SODIUM CHLORIDE 0.9%) [...] Albumin (3.4 - 5.0 g/dL) 3.10 L 10/019 Chemistry POC Glucose (70 - 110 MG/DL) 166 H Laboratory Tests 10/02 0314 Hematology WBC [...] (Auto) (14.0 - 32.0 %) 13.3 L [place] % (Auto) (4.8 - 9.0 %) 10.3 H Eos % (Auto) (0.3 - 3.7 %) 1.1 Baso % (Auto) (0.0 - 2.0 %) 0.1 Neut # (Auto) (2.0 - 7.6 x10 3/uL) 5.11 Lymph # (Auto) (1.0 - 3.8 x10 3/uL) 0.94 L [place] # (Auto) (0.1 - 0.8 x10 3/uL) [...] RADIOLOGY - XR CHEST 1 V 10/02 40 Report Impression - Status: SIGNED Entered: 10/02/2022 [...] Musculoskeletal: normal inspection, no muscle sp asm Neuro/SUPERVISOR [employer] ROOM: Alert and oriented x3, CNII-XII gross ly [...] time 37 minutes Consultants: cardiovascular surgery at 205 Addendum 1: 10/02/222219 by Sade Arana MD Correction VTE prophylaxis, DAPT at 2221 [facility] #:[id number] END OF REPORT 2022-10-02 11:47:00-00:[address] [facility]) Nephrology Progress Note REPORT#:[id number] REPORT STATUS: Signed DATE:10/02/22 TIME: 114 PATIENT: MONICA BECK UNIT #: [id number] ROOM/BED: [place] [address] : 42 AGE: 82 SEX: M ATTEND: Nicolasa Maria MD ADM AUTHOR: Arin Rossi MD * ALL edits or amendments must be made on the el [employer]/computer document * Subjective Chief complaint: follow up [...] Human Lispro (HUMALOG) 0 Q6HR SUBQ Ipratropium Ollie (ATROVENT) 500 MCG RTQ2H PRN PRN INH [...] flank pain Extremities: no edema, no gangrene Neuro/SUPERVISOR [employer] ROOM: alert, oriented X 3, CN II-XII intact [...] (Auto) (14.0 - 32.0 %) 13.3 L [place] % (Auto) (4.8 - 9.0 %) 10.3 H Eos % (Auto) (0.3 - 3.7 %) 1.1 Baso % (Auto) (0.0 - 2.0 %) 0.1 Neut # (Auto) (2.0 - 7.6 x10 3/uL) 5.11 Lymph # (Auto) (1.0 - 3.8 x10 3/uL) 0.94 L [place] # (Auto) (0.1 - 0.8 x10 3/uL) [...] RADIOLOGY - XR CHEST 1 V 10/02 2132 Report Impression - Status: SIGNED Entered: 10/02/2022 4940 IMPRESSION: Lungs slightly improved. Impression By: LisaABPriya [...] Arin Rossi MD on 10/02 at 2335 [facility] #:[id number] END OF REPORT 2022-10-02 09:02:00-00:00 [id number] [place] [address] PATIENT NAME: MONICA BECK ADMIT DATE: 0 09/24/22 ACCOUNT NO: [id number] ROOM NO: G.2201 AGE: 82 REPORT TYPE: eELECTROCARDIOGRAM REPORT SEX: M ADMITTING PHYSICIAN:Kathya Maria MD ATTENDING PHYSICIAN:Kathya Maria MD Order: [id number] Test Reason : rhythm change Test Date/Time Stamp: MonOct 02 2022 09:02:43 Blood Pressure : / mmHG Vent. Rate : 116 BPM Atrial Rate : 000 BPM P-R Int : 000 ms QRS Dur : 154 ms QT Int : 382 ms P-R-T Axes : 000 -31 127 degree s QTc Int : 530 ms Wide QRS rhythm tachycardia Left axis deviation Left bundle branch block Abnormal ECG Confirmed by ELAINE VO MD ([id number]) on 10/04/19 10:07:23 AM Referred By: Neeru Maria Confirmed by:ELAINE FENG MD at 1007 PATIENT NAME: MONICA BECK ACCOUNT #: [id number] 2022-10-02 08:49:00-00:00 [facility] Hospitalist Progress Note REPORT#:[id number] REPORT STATUS: Signed DATE:10/02/22 TIME: 0849 PATIENT: MONICA BECK UNIT #: [id number] ROOM/BED: [place] [address] : 42 AGE: 82 SEX: M ATTEND: Nicolasa Maria MD ADM AUTHOR: Charlotte Fitzpatrick MD * ALL edits or amendments must be made on the [employer] document * Subjective Chief complaint: no acute [...] 21 10/01 1100 68 139/63 91 94 05 1000 67 22 135/63 91 96 10/01 [...] Human Lispro (HUMALOG) 0 Q6HR SUBQ Ipratropium Ollie (ATROVENT) 500 MCG RTQ2H PRN PRN INH [...] soft Extremities: no edema Musculoskeletal: normal inspection Neuro/SUPERVIS[employer] ROOM: no motor deficits Skin: normal color Psychiatry: [...] 163 H 205 H Laboratory Tests 10/02 313 Hematology WBC (4.5 - 11.0 x10 3/uL) [...] (Auto) (14.0 - 32.0 %) 13.3 L [place] % (Auto) (4.8 - 9.0 %) 10.3 H Eos % (Auto) (0.3 - 3.7 %) 1.1 Baso % (Auto) (0.0 - 2.0 %) 0.1 Neut # (Auto) (2.0 - 7.6 x10 3/uL) 5.11 Lymph # (Auto) (1.0 - 3.8 x10 3/uL) 0.94 L [place] # (Auto) (0.1 - 0.8 x10 3/uL) [...] Report Impression - Status: SIGNED Entered: 10/02/2022 1089 IMPRESSION: Lungs slightly improved. Impression By: Juancho [...] Extremities: no clubbing, no cyanosis, no edema Neuro/SUPERVISOR [employer] ROOM: alert, oriented X 3, CNII-XII intact Skin: [...] an advanced directive His medical power of energy attorney is son Guille Francois t 09/29- POD #3 AVR and CABG x2 . ?pneumoperitoneuam on CXR. awaiting critical care recs. 10/01- POD 5, central line DC'd, ivf's stopped, kidney function stable, king cath remains x1 more day 10/02: Plan to transfer to [facility] at 1832 RPT #:[id number] END OF REPORT 2022-10-02 08:27:00-00:[address] [facility] ([facility] Cardiology Progress Note REPORT#:[id number] REPORT STATUS: Signed DATE:10/02/22 TIME: 826 PATIENT: MONICA BECK UNIT #: [id number] ROOM/BED: [place] [address] : 42 AGE: 82 SEX: M ATTEND: Nicolasa Maria MD ADM AUTHOR: Clarisse Gotti NP * ALL edits or amendments must be made on the [employer] document * Subjective Chief complaint: Tired, wants [...] O2 Flow FiO2 Mean Ox Delivery Rate 10/02 0600 [...] Human Lispro (HUMALOG) 0 Q6HR SUBQ Ipratropium Ollie (ATROVENT) 500 MCG RTQ2H PRN PRN INH [...] LE assessment: no edema Musculoskeletal: normal inspection Neuro/SUPERVISOR [employer] ROOM: alert, oriented X 3, normal speech Skin: [...] (Auto) (14.0 - 32.0 %) 13.3 L [place] % (Auto) (4.8 - 9.0 %) 10.3 H Eos % (Auto) (0.3 - 3.7 %) 1.1 Baso % (Auto) (0.0 - 2.0 %) 0.1 Neut # (Auto) (2.0 - 7.6 x10 3/uL) 5.11 Lymph # (Auto) (1.0 - 3.8 x10 3/uL) 0.94 L [place] # (Auto) (0.1 - 0.8 x10 3/uL) [...] Report Impression - Status: SIGNED Entered: 10/02/2022 0454 IMPRESSION: Lungs slightly improved. Impression By: LisaABPriya - Varghese Johns M.D. Results: labs reviewed, [...] of DM, HLD, . He presented to [facility] with CP, found to have [...] Ana Ramsey MD on at 1851 RPT #:[id number] END OF REPORT 2022-10-02 07:37:00-00:00 [facility]L [facility] Cardiothoracic Surgery Prog REPORT#:[id number] REPORT STATUS: Signed DATE:10/02/22 TIME: 07 PATIENT: MONICA BECK UNIT #: [id number] ROOM/BED: [place] [address] : 42 AGE: 82 SEX: M ATTEND: Nicolasa Maria MD ADM AUTHOR: Analilia Erwin Physic * ALL edits or amendments must be made on the [employer]/computer document * General Post-op: day 6 (1) [...] 10/01 2000 O2 Delivery Room air 10/01 194 FiO2 21 10/01 1500 O2 Flow Rate [...] soft, non-tender, no distention Extremities: moves all Neuro/SUPERVISOR [employer] ROOM: alert, oriented X 3, normal speech, n o motor deficits Psychiatry: normal affect, normal mood Diagnosis, Assessment Plan Hospital course to date: Mr Beck a very pleasant 82-year-old male with past medical history of diabetes, hyperlipidemia, restless leg syndrome aortic valve stenosis who presented to [facility] complaining of substernal chest pain across the anterior chest positive for n ausea and diaphoresis. CT chest showed small to moderate bilateral pleural effusions, ascending aorta measuring 4.2 cm. Cardiac enzymes elevated pat ient deemed non-STEMI. He was taken to the [facility] coronary angiogram revealed severe multivessel coronary artery disease. Patient started on heparin drip and transferred to [facility] for possible CABG and AVR. PLAN Coronary angiogram images will be uploaded in [employer] system Dr Maria explained to the patient [...] stenosis bilaterally Noncontrasted CT chest performed at [facility] reviewed with Dr. Maria. Images will be uploaded in our system. Coronary angiogram images uploaded in Draft o Plan for CABG and AVR tomorr [...] cardiovascular surgery at 1255 at 0245 RPT #:[id number] END OF REPORT 2022-10-01 16:41:00-00:[address] [facility] ([facility]) Nephrology Progress Note REPORT#:[id number] REPORT STATUS: Signed DATE:10/01/22 TIME: 164 PATIENT: MONICA BECK UNIT #: [id number] ROOM/BED: [place] [address] : 42 AGE: 82 SEX: M ATTEND: Nicolasa Maria MD ADM AUTHOR: Arin Rossi MD * ALL edits or amendments must be made on the [employer] document * Objective General VS/I O: Vital [...] 10/01 0607 66 22 126/56 83 87 / 0500 66 26 127/61 88 96 05/ 0400 63 17 126/60 86 95 05/ 2300 65 25 117/58 79 96 05/ 2235 65 20 127/60 86 96 05/ 2100 68 23 138/65 93 98 05/ 2000 66 21 151/68 98 97 09/30 1945 Room air 96 05/ 1900 64 15 136/61 88 95 09/30 1700 72 24 127/60 87 90 24 hour I O ending at 0700: 0513 0700 05/12 1900 Intake Total 240 780.00 Output Total [...] Human Lispro (HUMALOG) 0 Q6HR SUBQ Ipratropium Ollie (ATROVENT) 500 MCG RTQ2H PRN PRN INH [...] flank pain Extremities: no edema, no gangrene Neuro/SUPERVISOR [employer] ROOM: alert, oriented X 3, CN II-XII intact , normal speech Results Findings/Data: Laboratory Tests 10/01 10/01 10/01 09/30 1216 0757 5147 2101 Chemistry Sodium (134 - 147 mEq/L) [...] (Auto) (14.0 - 32.0 %) 12.9 L [place] % (Auto) (4.8 - 9.0 %) 9.8 H Eos % (Auto) (0.3 - 3.7 %) 2.5 Baso % (Auto) (0.0 - 2.0 %) 0.2 Neut # (Auto) (2.0 - 7.6 x10 3/uL) 4.48 Lymph # (Auto) (1.0 - 3.8 x10 3/uL) 0.79 L [place] # (Auto) (0.1 - 0.8 x10 3/uL) [...] RADIOLOGY - XR CHEST 1 V 10/01 22 Report Impression - Status: SIGNED Entered: 10/01/2022 [...] Rossi MD on 10/01 at 1645 RPT #:[id number] END OF REPORT 2022-10-01 15:23:00-00:00 [facility]L [facility] Hospitalist Progress Note REPORT#:[id number] REPORT STATUS: Signed DATE:10/01/22 TIME: 1523 PATIENT: MONICA BECK UNIT #: [id number] ROOM/BED: [place] [address] : 42 AGE: 82 SEX: M ATTEND: Nicolasa Maria MD ADM AUTHOR: Charlotte Fitzpatrick MD * ALL edits or amendments must be made on the [employer]/computer document * Subjective Chief complaint: no acute [...] Human Lispro (HUMALOG) 0 Q6HR SUBQ Ipratropium Ollie (ATROVENT) 500 MCG RTQ2H PRN PRN INH [...] soft Extremities: no edema Musculoskeletal: normal inspection Neuro/SUPER[employer] ROOM: no motor deficits Skin: normal color Psychiatry: [...] Extremities: no clubbing, no cyanosis, no edema Neuro/SUPERVISOR [employer] ROOM: alert, oriented X 3, CNII-XII intact Skin: [...] an advanced directive His medical power of energy attorney is nadeem de la vega 09/29- POD #3 AVR and CABG x2 . ?pneumoperitoneuam on CXR. awaiting critical care recs. 10/01- POD 5, central line DC'd, ivf's stopped, kidney function stable, king cath remains x1 more day at 2059 RPT #:[id number] END OF REPORT 2022-10-01 08:44:00-00:00 [facility]L [facility] Cardiothoracic Surgery Prog REPORT#:[id number] REPORT STATUS: Signed DATE:10/01/22 TIME: 843 PATIENT: MONICA BECK UNIT #: [id number] ROOM/BED: [place] [address] : 42 AGE: 82 SEX: M ATTEND: Nicolasa Maria MD ADM AUTHOR: Analilia Erwin Physic * ALL edits or amendments must be made on the [employer]/computer document * General Post-op: day 5 (1) [...] soft, non-tender, no distention Extremities: moves all Neuro/SUPERVISOR [employer] ROOM: alert, oriented X 3, normal speech, n o motor deficits Psychiatry: normal affect, normal mood Diagnosis, Assessment Plan Hospital course to date: Mr Beck a very pleasant 82-year-old male with past medical history of diabetes, hyperlipidemia, restless leg syndrome aortic valve stenosis who presented to [facility] complaining of substernal chest pain across the anterior chest positive for n ausea and diaphoresis. CT chest showed small to moderate bilateral pleural effusions, ascending aorta measuring 4.2 cm. Cardiac enzymes elevated pat ient deemed non-STEMI. He was taken to the [facility] coronary angiogram revealed severe multivessel coronary artery disease. Patient started on heparin drip and transferred to [facility] for possible CABG and AVR. PLAN Coronary angiogram images will be uploaded in r system Dr Maria explained to the patient [...] stenosis bilaterally Noncontrasted CT chest performed at [facility] reviewed with Dr. Maria. Images will be uploaded in our system. Coronary angiogram images uploaded in Draft o Plan for CABG and AVR tomorr [...] remains sinus rhtyhm. Pacing wires on s GI: Continue Bowel regimen, no bm yet [...] cardiovascular surgery at 1327 at 0245 RPT #:[id number] END OF REPORT 2022-10-01 08:16:00-00:00 [facility]L [facility] Cardiology Progress Note REPORT#:[id number] REPORT STATUS: Signed DATE:10/01/22 TIME: 08 PATIENT: MONICA BECK UNIT #: [id number] ROOM/BED: [place] [address] : 42 AGE: 82 SEX: M ATTEND: Nicolasa Maria MD ADM AUTHOR: Clarisse Gotti NP * ALL edits or amendments must be made on the [employer]/computer document * Subjective Chief complaint: Want to go home. Patient reports: No: chest pain, palpitations, shortness of breat h. Nursing reports: No: complaints. Comments: Patient on room air, sitting in chair without di stress note. Telemetry shows normal sinus rhythm. Objective General VS/I O: 24 hour I O ending at 0700: 09/30 1900 10/01 0700 Intake Total 780.00 240 [...] Human Lispro (HUMALOG) 0 Q6HR SUBQ Ipratropium Ollie (ATROVENT) 500 MCG RTQ2H PRN PRN INH [...] LE assessment: no edema Musculoskeletal: normal inspection Neuro/SUPERVISOR [employer] ROOM: alert, oriented X 3, normal speech Skin: dry Psychiatry: normal affect, normal mood Results Findings/Data: Laboratory Tests 09/30 09/30 10/01 10/01 10/01 1633 2101 0347 0757 1216 Chemistry Sodium (134 - 147 mEq/L) [...] (Auto) (14.0 - 32.0 %) 12.9 L [place] % (Auto) (4.8 - 9.0 %) 9.8 H Eos % (Auto) (0.3 - 3.7 %) 2.5 Baso % (Auto) (0.0 - 2.0 %) 0.2 Neut # (Auto) (2.0 - 7.6 x10 3/uL) 4.48 Lymph # (Auto) (1.0 - 3.8 x10 3/uL) 0.79 L [place] # (Auto) (0.1 - 0.8 x10 3/uL) [...] RADIOLOGY - XR CHEST 1 V 10/01 8230 Report Impression - Status: SIGNED Entered: 10/01/2022 [...] of DM, HLD, . He presented to [facility] with CP, found to have [...] by Ana Ramsey MD on at 1654 [facility] #:[id number] END OF REPORT 2022-10-01 06:32:00-00:[address] [facility] ([facility]) Critical Care Progress Note REPORT#:[id number] REPORT STATUS: Signed DATE:10/01/22 TIME: 631 PATIENT: MONICA BECK UNIT #: [id number] ROOM/BED: [place] [address] : 42 AGE: 82 SEX: M ATTEND: Nicolasa Maria MD ADM AUTHOR: Milton Mast MD * ALL edits or amendments must be made on the [employer]/computer document * Subjective Chief complaint: CABG HPI: [...] Documented: Result Date Time Pulse Ox 96 05 2300 B/P 117/58 09/30 2300 B/P Mean 79 05 2300 Pulse 65 09/30 2300 Resp 25 [...] Human Lispro (HUMALOG) 0 Q6HR SUBQ Ipratropium Ollie (ATROVENT) 500 MCG RTQ2H PRN PRN INH [...] Musculoskeletal: normal inspection, no muscle sp asm Neuro/SUPERVISOR LUMP ROOM: Alert and oriented x3, CNII-XII gross ly [...] MD on 09/19 08/11 at 1245 RPT #:[id number] END OF REPORT 2022-09-30 15:58:00-00:00 [facility] Cardiothoracic Surgery Prog REPORT#:[id number] REPORT STATUS: Signed DATE:09/30/22 TIME: 1558 PATIENT: MONICA BECK UNIT #: [id number] ROOM/BED: [place] [address] : 42 AGE: 82 SEX: M ATTEND: Nicolasa Maria MD ADM AUTHOR: Analilia Erwin Physic * ALL edits or amendments must be made on the el [employer]computer document * General Post-op: day 4 (1) [...] soft, non-tender, no distention Extremities: moves all Neuro/SUPERVISOR LUMP ROOM: alert, oriented X 3, normal speech, n o motor deficits Psychiatry: normal affect, normal mood Diagnosis, Assessment Plan Hospital course to date: Mr Beck a very pleasant 82-year-old male with past medical history of diabetes, hyperlipidemia, restless leg syndrome aortic valve stenosis who presented to [facility] complaining of substernal chest pain across the anterior chest positive for n ausea and diaphoresis. CT chest showed small to moderate bilateral pleural effusions, ascending aorta measuring 4.2 cm. Cardiac enzymes elevated pat ient deemed non-STEMI. He was taken to the [facility] coronary angiogram revealed severe multivessel coronary artery disease. Patient started on heparin drip and transferred to [facility] for possible CABG and AVR. PLAN Coronary angiogram images will be uploaded in [employer] system Dr Maria explained to the patient [...] stenosis bilaterally Noncontrasted CT chest performed at [facility] reviewed with Dr. Maria. Images will be uploaded in our system. Coronary angiogram images uploaded in Draft o Plan for CABG and AVR tomorr [...] line Consultants: cardiovascular surgery at 1604 at 0242 RPT #:[id number] END OF REPORT 2022-09-30 10:42:00-00:[address] [facility] ([facility] Nephrology Progress Note REPORT#:[id number] REPORT STATUS: Signed DATE:09/30/22 TIME: 1042 PATIENT: MONICA BECK UNIT #: [id number] ROOM/BED: [place] [address] : 42 AGE: 82 SEX: M ATTEND: Nicolasa Maria MD ADM AUTHOR: Nila Cheung MD * ALL edits or amendments must be made on the [employer] document * Subjective Comments: Doing well, [...] 09/30 0600 70 27 122/58 84 96 / 0500 69 26 118/58 83 93 / 0400 71 22 122/60 86 95 / 0301 71 20 125/65 86 94 / 0300 71 22 94 / 0200 68 17 141/63 91 95 09/30 0100 71 23 119/57 82 93 05/ 0000 72 23 117/63 85 95 09/29 2300 70 20 123/60 86 95 09/29 2200 71 29 107/54 77 95 09/29 2100 70 23 107/54 77 95 09/29 2000 98.2 09/29 2000 72 19 128/57 [...] Human Lispro (HUMALOG) 0 Q6HR SUBQ Ipratropium Ollie (ATROVENT) 500 MCG RTQ2H PRN PRN INH [...] (ULTRAM) 25 MG QID PRN PO Ipratropium Ollie (ATROVENT) 500 MCG RTQ4H INH (DC) Acetaminophen [...] flank pain Extremities: no edema, no gangrene Neuro/SUPERVISOR LUMP ROOM: alert, oriented X 3, CN II-XII intact [...] g/dL) 3.10 L 3.40 Laboratory Tests 09/30 0209 Hematology WBC (4.5 [...] (Auto) (14.0 - 32.0 %) 13.2 L [place] % (Auto) (4.8 - 9.0 %) 6.5 Eos % (Auto) (0.3 - 3.7 %) 1.4 Baso % (Auto) (0.0 - 2.0 %) 0.2 Neut # (Auto) (2.0 - 7.6 x10 3/uL) 4.45 Lymph # (Auto) (1.0 - 3.8 x10 3/uL) 0.75 L [place] # (Auto) (0.1 - 0.8 x10 3/uL) [...] Signed by Nila Cheung MD on at [facility] RPT #:[id number] END OF REPORT 2022-09-30 09:54:00-00:00 [facility] REPORT#:[id number] REPORT STATUS: Signed DATE:09/30/22 TIME: 953 PATIENT: MONICA BECK UNIT #: [id number] ROOM/BED: [place] [address] : 42 AGE: 82 SEX: M ATTEND: Nicolasa Maria MD ADM AUTHOR: Clarisse Gotti NP * ALL edits or amendments must be made on the [employer] document * Subjective Chief complaint: Doing ok [...] 24 hour I O ending at 0700: / 1900 09/30 0700 Intake Total 1230.00 890.00 Output Total 925 980 Balance 305.00 -90.00 Intake, IV 330.00 500.00 Intake, Oral 660 390 Intake, Oral 240 Supplement Output, Chest 260 35 Tube Drainage Output, Urine 665 945 Patient 81.9 kg Weight Weight Standing scale Measurement Method Vital Signs: Date Time Temp Pulse Resp B/P B/P Pulse O2 O2 Flow FiO2 Mean Ox Delivery Rate 09/30 1200 72 24 108/87 94 92 05/ 1159 96 Room air 21 05/ 1101 66 23 115/55 79 96 05/ 1021 75 150/63 91 94 05/ 1000 65 15 116/58 83 95 05/ 0901 66 19 109/57 79 97 05/ 0801 73 150/69 99 90 05/ 0800 97.9 05/ 0800 97 Room air 21 05/ 0725 67 19 96 05/12 0700 67 18 110/56 79 96 05/12 0600 70 27 122/58 84 96 05/ 0500 69 26 118/58 83 93 05/ 0400 71 22 122/60 86 95 05/ 0301 71 20 125/65 86 94 05/ 0300 71 22 94 05/12 0200 68 17 141/63 91 95 05/ 0100 71 23 119/57 82 93 05/ 0000 72 23 117/63 85 95 / 2300 70 20 123/60 86 95 09/29 2200 71 29 107/54 77 95 09/29 2100 70 23 107/54 77 95 09/30 1999 98.2 09/30 1999 72 19 128/57 82 94 09/29 1935 [...] Human Lispro (HUMALOG) 0 Q6HR SUBQ Ipratropium Ollie (ATROVENT) 500 MCG RTQ2H PRN PRN INH [...] (ULTRAM) 25 MG QID PRN PO Ipratropium Ollie (ATROVENT) 500 MCG RTQ4H INH (DC) Acetaminophen (TYLENOL) 650 MG Q4H PRN PRN PO (D C) Acetaminophen (TYLENOL) 650 MG Q4H PRN PRN RECTA L (DC) Calcium Chloride (CALCIUM CHLORIDE) 1 GM ASDIR P RN IV Dextrose/Water (DEXTROSE 10% IN WATER) 125 ML A SDIR PRN IV (CKD) Dextrose/Water (DEXTROSE 10% IN [...] LE assessment: no edema Musculoskeletal: normal inspection Neuro/SUPERVISOR LUMP ROOM: alert, oriented X 3, normal speech Skin: [...] (Auto) (14.0 - 32.0 %) 13.2 L [place] % (Auto) (4.8 - 9.0 %) 6.5 Eos % (Auto) (0.3 - 3.7 %) 1.4 Baso % (Auto) (0.0 - 2.0 %) 0.2 Neut # (Auto) (2.0 - 7.6 x10 3/uL) 4.45 Lymph # (Auto) (1.0 - 3.8 x10 3/uL) 0.75 L [place] # (Auto) (0.1 - 0.8 x10 3/uL) [...] RADIOLOGY - XR CHEST 1 V 09/30 0722 Report Impression - Status: SIGNED Entered: 09/30/2022 5837 IMPRESSION: No significant change when allowing for differen chloé in technique. Impression By: [email or web address] - Varghese Johns M.D. Results: labs reviewed, vital signs reviewed, vi floresita signs stable, rhythm personally rev'd, x-ray personally reviewed, neo man med profile rev'd Telemetry Interpretation: Normal sinus rhythm Diagnosis, Assessment Plan Problem List/A P: 1. S/P CABG x 2 2. S/P AVR 3. CAD (coronary artery disease) 4. Severe aortic stenosis Consultants: cardiovascular surgery Plan discussed with: patient, nurse Free Text DxA P Notes Free Text DxA P Notes: 82 YO male with MHx of DM, HLD, . He presented to [facility] with CP, found to have [...] Jakob Pa MD on at 2019 RPT #:[id number] END OF REPORT 2022-09-30 09:03:00-00:00 [facility] Critical Care Progress Note REPORT#:[id number] REPORT STATUS: Signed DATE:09/30/22 TIME: 902 PATIENT: MONICA BECK UNIT #: [id number] ROOM/BED: [place] [address] : 42 AGE: 82 SEX: M ATTEND: Nicolasa Maria MD ADM AUTHOR: Milton Mast MD * ALL edits or amendments must be made on the [employer]/computer document * Subjective Chief complaint: CABG HPI: [...] Result Date Time Pulse Ox 97 09/30 08 FiO2 21 09/30 0800 O2 Delivery Room air 09/30 08 Pulse 67 09/30 0725 Resp 19 09/30 0625 B/P 110/56 09/30 07 B/P Mean 79 09/30 07 Temp 98.2 09/30 1999 O2 Flow Rate 2 09/29 0809 24 [...] Human Lispro (HUMALOG) 0 Q6HR SUBQ Ipratropium Ollie (ATROVENT) 500 MCG RTQ2H PRN PRN INH [...] (ULTRAM) 25 MG QID PRN PO Ipratropium Ollie (ATROVENT) 500 MCG RTQ4H INH (DC) Acetaminophen [...] g/dL) 3.10 L 3.40 Laboratory Tests 09/30 0209 Hematology WBC (4.5 [...] (Auto) (14.0 - 32.0 %) 13.2 L [place] % (Auto) (4.8 - 9.0 %) 6.5 Eos % (Auto) (0.3 - 3.7 %) 1.4 Baso % (Auto) (0.0 - 2.0 %) 0.2 Neut # (Auto) (2.0 - 7.6 x10 3/uL) 4.45 Lymph # (Auto) (1.0 - 3.8 x10 3/uL) 0.75 L [place] # (Auto) (0.1 - 0.8 x10 3/uL) [...] Report Impression - Status: SIGNED Entered: 09/30/2022 3862 IMPRESSION: No significant change when allowing for differen chloé in technique. Impression By: [email or web address] - Varghese Johns M.D. Free Text Obj [...] Musculoskeletal: normal inspection, no muscle sp asm Neuro/SUPERVISOR LUMP ROOM: Alert and oriented x3, CNII-XII gross ly [...] MD on 09/19 08/11 at 1245 RPT #:[id number] END OF REPORT 2022-09-29 13:14:00-00:00 [facility]L [facility] Hospitalist Progress Note REPORT#:[id number] REPORT STATUS: Signed DATE:09/29/22 TIME: 1314 PATIENT: MONICA BECK UNIT #: [id number] ROOM/BED: [place] [address] : 42 AGE: 82 SEX: M ATTEND: Nicolasa Maria MD ADM AUTHOR: Lisandro Russell MD * ALL edits or amendments must be made on the [employer]/computer document * Subjective Chief complaint: sitting up beside the bed. no cp. c/p post op di [place] and poor apetite. Objective General VS/I O: Vital Signs: Date Time Temp Pulse Resp B/P B/P Pulse O2 O2 F low FiO2 Mean Ox Delivery Rate 09/29 929 71 19 97/50 69 94 09/29 09 73 26 111/57 81 95 09/29 0830 75 106/55 77 97 09/29 0809 94 Nasal 2 cannula 09/30 799 71 20 108/54 77 95 09/29 0730 71 19 110/57 80 93 09/29 0700 74 21 99/56 74 95 09/29 0530 69 23 94/52 70 100 09/29 0607 74 20 100/52 74 97 09/29 0500 71 26 97 09/29 0430 71 24 94/50 68 99 05/11 0502 [...] 95 05/10 1355 73 28 115/82 93 24 hour I O ending at 0700: 09/29 0700 05/ 1900 Intake Total 1256.50 885.70 Output Total [...] soft Extremities: no edema Musculoskeletal: normal inspection Neuro/SUPERVISOR LUMP ROOM: no motor deficits Skin: normal color Psychiatry: [...] Dose Route Stop Time Status Admin Ipratropium Ollie 500 MCG RTQ2H PRN PRN 09/29 1501 AC INH 10/29 1500 Cyanocobalamin 500 MCG DAILY 09/29 899 AC PO 10/29 0859 Ferrous Sulfate 325 MG DAILY 09/29 09 AC PO 10/29 0859 Furosemide 20 MG ONCE ONE 09/29 0545 DC 09/29 IV 09/29 0546 0650 Furosemide 20 MG ONCE ONE 09/29 0545 CAN IV 09/29 0546 Sodium Chloride 250 ML BOLUS ONCE ONE 09/29 021 5 DC 09/29 IV 09/29 0216 0218 Sodium Chloride 250 ML BOLUS ONCE ONE 09/28 214 5 DC 09/28 IV 09/28 2146 2204 Albumin [...] 111 205 Mupirocin 1 APPLIC BID 09/28 09 AC 09/29 NASAL 10/021 0843 Atorvastatin Calcium 40 MG 2100 09/27 2100 DC 0 5/10 PO 10/27 Dopamine HCl/Dextrose 250 ML ASDIR 09/27 1045 A C 09/27 IV 10/27 1044 1057 Clopidogrel Bisulfate 75 MG DAILY 09/27 899 AC 09/29 PO 10/27 0859 0842 Polyethylene Glycol 17 GM DAILY 09/27 899 AC 0 09/29 PO 10/27 0859 0842 Pantoprazole 40 MG DAILY@00 09/27 06 AC PO 10/27 0559 0651 Aspirin 81 MG DAILY 09/26 2100 AC 09/29 PO 10/26 2100 0842 Amiodarone HCl 200 MG TID 09/26 2099 AC 09/28 PO 10/26 Docusate Sodium 100 MG BID 09/26 2099 AC 09/29 PO 10/26 2058 0847 Gabapentin 200 MG BID 09/26 2099 AC 09/29 PO 10/01 0801 0842 Melatonin 6 MG BEDTIME 09/26 2099 AC 09/28 PO 10/26 Metoprolol Tartrate 12.5 MG Q12HR 09/26 2099 A C 09/29 PO 10/26 2058 0842 Sennosides 17.2 MG BEDTIME 09/26 2100 AC 09/28 PO 10/26 2058 205 Fentanyl Citrate 50 MCG Q3H PRN PRN 09/26 1930 AC 09/27 IV 0134 Tramadol HCl 50 MG Q4H PRN PRN /08 1830 AC PO 10/01 182 2055 Tramadol HCl 25 MG QID PRN / 1830 AC 09/27 PO 10/01 1829 2125 Ipratropium Ollie 500 MCG RTQ4H 09/26 1600 AC 09/29 INH 09/29 1501 1200 Acetaminophen 650 MG Q4H PRN PRN /08 1515 DC / PO 10/26 1514 0759 Acetaminophen 650 MG Q4H PRN PRN /08 1515 DC RECTAL 07 1514 Calcium Chloride 1 GM ASDIR PRN 09/26 1515 AC IV 10/26 1514 Dextrose/Water 125 ML ASDIR PRN 08 1515 CKD IV 10/26 1514 Dextrose/Water 250 ML ASDIR PRN 08 1515 CKD IV 10/26 1514 Epinephrine 4 MG ASDIR 09/26 1515 AC Dextrose/Water 246 ML IV 10/26 1514 Glucagon 1 MG ASDIR PRN 09/26 1515 AC IM 10/26 1514 Insulin Human Regular 100 UNIT ASDIR 09/26 151 CKD 09/28 Sodium Chloride 99 ML IV 10/26 1514 0100 Magnesium Sulfate 100 ML ASDIR PRN 09/26 1515 A C IV 10/26 1514 Magnesium Sulfate 50 ML ASDIR PRN 09/26 1515 AC IV 10/26 151 Magnesium Sulfate/ 100 ML ASDIR PRN 09/26 1515 AC 05 Dextrose IV 10/26 1514 0331 Nitroglycerin/ 250 ML ASDIR 09/26 151 AC Dextrose IV 10/26 1514 Norepinephrine 250 ML TITRATE 09/26 151 AC Bitartrate IV 10/26 1514 Ondansetron HCl 4 MG Q6H PRN PRN 09/26 1515 AC IV 10/26 1514 Potassium Chloride 100 ML ASDIR PRN 09/26 1515 AC 09/26 IV 10/26 1514 1750 Sodium Bicarbonate 50 MEQ ASDIR PRN 09/26 1515 AC IV 10/26 1514 Sodium Chloride 1,000 ML .Q20H 09/26 1515 AC IV 10/26 1514 0219 Sodium Chloride 250 ML Q24H 09/26 1515 AC IV 10/26 1514 Laboratory Tests: 09/29 09/29 09/29 09/28 [...] (Auto) (14.0 - 32.0 %) 9.9 L [place] % (Auto) (4.8 - 9.0 %) 6.3 Eos % (Auto) (0.3 - 3.7 %) 0.3 Baso % (Auto) (0.0 - 2.0 %) 0.1 Neut # (Auto) (2.0 - 7.6 x10 3/uL) 5.95 Lymph # (Auto) (1.0 - 3.8 x10 3/uL) 0.71 L [place] # (Auto) (0.1 - 0.8 x10 3/uL) [...] Extremities: no clubbing, no cyanosis, no edema Neuro/SUPERVISOR LUMP ROOM: alert, oriented X 3, CNII-XII intact Skin: [...] an advanced directive His medical power of energy attorney is son Guille de la vega 09/29- POD #3 AVR and CABG x2 . ?pneumoperitoneuam on CXR. awaiting critical care recs. Electronically Signed by Lisandro Russell MD on 09/19 06/13 at 1319 RPT #:[id number] END OF REPORT 2022-09-29 11:57:00-00:00 [facility] Nephrology Consultation Note REPORT#:[id number] REPORT STATUS: Signed DATE:09/29/22 TIME: 1157 PATIENT: MONICA BECK UNIT #: [id number] ROOM/BED: [place] [id number] : 42 AGE: 82 SEX: M ATTEND: Nicolasa Maria MD ADM AUTHOR: Nila Cheung MD * ALL edits or amendments must be made on the [employer]/computer document * History of Present Illness Reason for consult: JOSE ARMANDO HPI: Patient is a 82 YO male with past medical history of DM, HLD, went to outside hospital with CP, found to have NSTEMI. [facility] ensu ed that showed severe multivessel CAD. He is transferred to [facility] and underwent CABG and AVR [...] 05/ 0930 71 19 97/50 69 94 09/29 0900 73 26 111/57 81 95 / 0830 75 106/55 77 97 / 0809 94 Nasal 2 cannula 09/29 0800 71 20 108/54 77 95 05/ 0730 71 19 110/57 80 93 05/11 0700 74 21 99/56 74 95 05/11 0630 69 23 94/52 70 100 05/11 0607 74 20 100/52 74 97 05/11 0600 71 26 97 05/ 0530 71 24 94/50 68 99 05/11 0502 75 28 98/57 74 95 05/ 0501 75 21 68/43 52 96 05/11 0500 75 27 94 05/11 0430 73 21 97/55 72 99 05/11 0418 72 20 98 05/11 0400 97.8 Nasal 2 cannula 09/29 0400 73 19 106/57 78 98 05/11 0330 72 22 94/51 66 98 05/11 0300 72 19 98/57 75 99 05/11 0230 71 19 97/56 69 99 05/11 0200 71 21 109/56 77 98 05/11 0130 74 34 98/54 73 91 05/11 0100 73 34 111/55 79 93 05/ 0030 72 23 106/59 81 91 05/ 0000 97.8 Nasal 2 cannula 05/11 0000 [...] I O ending at 0700: 09/29 0700 / 1900 Intake Total 1256.50 885.70 Output Total 310 270 Balance 946.50 615.70 Intake, IV 1136.50 520.70 Intake, Oral 120 365 Output, Chest 20 90 Tube Drainage Output, Urine 290 180 Patient 84.3 kg Weight Weight Bed scale Measurement Method PATIENT WEIGHT: Weight (lb): 185 Weight (oz): 13.59 Weight (kg): 84.300 Medications: Active Meds + DC'd Last 24 Hrs Ipratropium Ollie (ATROVENT) 500 MCG RTQ2H PRN PRN INH [...] (ULTRAM) 25 MG QID PRN PO Ipratropium Ollie (ATROVENT) 500 MCG RTQ4H INH Acetaminophen (TYLENOL) [...] flank pain Extremities: no edema, no gangrene Neuro/SUPERVISOR LUMP ROOM: alert, oriented X 3, CN II-XII intact [...] (8.0 - 10.5 mg/dL) 9.2 Laboratory Tests 09/29 0311 Hematology WBC (4.5 [...] (Auto) (14.0 - 32.0 %) 9.9 L [place] % (Auto) (4.8 - 9.0 %) 6.3 Eos % (Auto) (0.3 - 3.7 %) 0.3 Baso % (Auto) (0.0 - 2.0 %) 0.1 Neut # (Auto) (2.0 - 7.6 x10 3/uL) 5.95 Lymph # (Auto) (1.0 - 3.8 x10 3/uL) 0.71 L [place] # (Auto) (0.1 - 0.8 x10 3/uL) [...] Report Impression - Status: SIGNED Entered: 09/29/2022 0790 IMPRESSION: Interval development of pneumoperito neum. I [...] by Nila Cheung MD on at 1533 [facility] #:[id number] END OF REPORT 2022-09-29 10:02:00-00:00 [facility] Cardiology Progress Note REPORT#:[id number] REPORT STATUS: Signed DATE:09/29/22 TIME: 1002 PATIENT: MONICA BECK UNIT #: [id number] ROOM/BED: [place] [address] : 42 AGE: 82 SEX: M ATTEND: Nicolasa Maria MD ADM AUTHOR: Geneva Silverman [employer] * ALL edits or amendments must be made on the [employer]/computer document * Subjective Patient reports: No: complaints. Objective General VS/I O: Vital Signs Date Temp Pulse Resp B/P B/P Mean Pulse Ox FiO 2 09/28-09/29 36.2-36.6 67-75 19-34 68-140/43-82 52-93 80-100 PATIENT WEIGHT: Weight (lb): 185 Weight (oz): 13.59 Weight (kg): 84.300 Medications: Active Meds + DC'd Last 24 Hrs Ipratropium Ollie (ATROVENT) 500 MCG RTQ2H PRN PRN INH [...] (ULTRAM) 25 MG QID PRN PO Ipratropium Ollie (ATROVENT) 500 MCG RTQ4H INH Acetaminophen (TYLENOL) [...] LE assessment: no edema Musculoskeletal: normal inspection Neuro/SUPERVISOR LUMP ROOM: alert, oriented X 3, normal speech Skin: dry Psychiatry: normal affect, normal mood Results Findings/Data: Laboratory Tests 09/29 09/29 09/29 09/28 09/28 0831 0311 0056 230 2038 Chemistry Sodium (134 - 147 mEq/L) [...] L Albumin (3.4 - 5.0 g/dL) 3.40 05/10 05/10 05/10 05/10 1810 1407 1138 1126 Chemistry Sodium (134 [...] (Auto) (14.0 - 32.0 %) 9.9 L [place] % (Auto) (4.8 - 9.0 %) 6.3 Eos % (Auto) (0.3 - 3.7 %) 0.3 Baso % (Auto) (0.0 - 2.0 %) 0.1 Neut # (Auto) (2.0 - 7.6 x10 3/uL) 5.95 Lymph # (Auto) (1.0 - 3.8 x10 3/uL) 0.71 L [place] # (Auto) (0.1 - 0.8 x10 3/uL) [...] Pending callback. Impression By: [email or web address] - Gus Ramirez. Results: labs reviewed, vital signs reviewed, [facility] personally rev'd Telemetry Interpretation: Sinus rhythm Diagnosis, Assessment Plan Plan discussed with: patient, collaborating MD, nurse Free Text DxA P Notes Free Text DxA P Notes: 82 YO male with MHx of DM, HLD, . He presented to [facility] with CP, found to have [...] Jakob Pa MD on at 2019 RPT #:[id number] END OF REPORT 2022-09-29 08:37:00-00:00 [facility] ([facility]) DT Operative Note REPORT#:[id number] REPORT STATUS: Signed DATE:09/29/22 TIME: 08 PATIENT: MONICA BECK UNIT #: [id number] ROOM/BED: [place] [address] : 42 AGE: 82 SEX: M ATTEND: Nicolasa Maria MD ADM AUTHOR: Jose Guadalupe Chacon MD * ALL edits or amendments must be made on the [employer] document * Operative Report Operative Note Note: I assisted Dr Maria in the andrews aspects of this operation, including the CABGs and AoV Jose Guadalupe Chacon MD Electronically Signed by Jose Guadalupe Chacon MD on 09/19 06/13 at 0839 RPT #:[id number] END OF REPORT 2022-09-29 07:33:00-00:00 [facility] ([facility]) Critical Care Progress Note REPORT#:[id number] REPORT STATUS: Signed DATE:09/29/22 TIME: 07 PATIENT: MONICA BECK UNIT #: [id number] ROOM/BED: [place] [address] : 42 AGE: 82 SEX: M ATTEND: Nicolasa Maria MD ADM AUTHOR: Milton Mast MD * ALL edits or amendments must be made on the [employer] document * Subjective Chief complaint: CABG HPI: [...] Pulse 74 09/29 0700 Resp 21 09/29 07 O2 Delivery Nasal cannula 09/29 040 O2 Flow Rate 2 09/29 0400 Temp [...] Meds + DC'd Last 24 Hrs Ipratropium Ollie (ATROVENT) 500 MCG RTQ2H PRN PRN INH [...] (ULTRAM) 25 MG QID PRN PO Ipratropium Ollie (ATROVENT) 500 MCG RTQ4H INH Acetaminophen (TYLENOL) [...] (Auto) (14.0 - 32.0 %) 9.9 L [place] % (Auto) (4.8 - 9.0 %) 6.3 Eos % (Auto) (0.3 - 3.7 %) 0.3 Baso % (Auto) (0.0 - 2.0 %) 0.1 Neut # (Auto) (2.0 - 7.6 x10 3/uL) 5.95 Lymph # (Auto) (1.0 - 3.8 x10 3/uL) 0.71 L [place] # (Auto) (0.1 - 0.8 x10 3/uL) [...] Musculoskeletal: normal inspection, no muscle sp asm Neuro/SUPERVISOR LUMP ROOM: Alert and oriented x3, CNII-XII gross ly [...] MD on 09/19 08/11 at 1245 RPT #:[id number] END OF REPORT 2022-09-29 06:48:00-00:00 [facility] ([facility]) Cardiothoracic Surgery Prog REPORT#:[id number] REPORT STATUS: Signed DATE:09/29/22 TIME: 06 PATIENT: MONICA BECK UNIT #: [id number] ROOM/BED: 3362-1 : 42 AGE: 82 SEX: M ATTEND: Nicolasa Maria MD ADM AUTHOR: Analilia Erwin Physic * ALL edits or amendments must be made on the [employer]/computer document * General Post-op: day 3 (1) [...] 20 09/29 0418 O2 Delivery Nasal cannula 09/29 0400 O2 Flow Rate 2 09/29 0400 Temp 97.8 09/29 0400 B/P 106/57 09/29 0400 B/P Mean 78 09/29 0400 24 hour I O ending [...] soft, non-tender, no distention Extremities: moves all Neuro/SUPERVISOR LUMP ROOM: alert, oriented X 3, normal speech, n o motor deficits Psychiatry: normal affect, normal mood Diagnosis, Assessment Plan Hospital course to date: Mr Beck a very pleasant 82-year-old male with past medical history of diabetes, hyperlipidemia, restless leg syndrome aortic valve stenosis who presented to [facility] complaining of substernal chest pain across the anterior chest positive for n ausea and diaphoresis. CT chest showed small to moderate bilateral pleural effusions, ascending aorta measuring 4.2 cm. Cardiac enzymes elevated pat ient deemed non-STEMI. He was taken to the [facility] coronary angiogram revealed severe multivessel coronary artery disease. Patient started on heparin drip and transferred to [facility] for possible CABG and AVR. PLAN Coronary angiogram images will be uploaded in [employer] system Dr Maria explained to the patient [...] stenosis bilaterally Noncontrasted CT chest performed at [facility] reviewed with Dr. Maria. Images will be uploaded in our system. Coronary angiogram images uploaded in Draft o Plan for CABG and AVR tomorr [...] o f care discussed with multidisciplinary team 5/10/23 POD 2 AAOx3 Respiratory: On 2 L [...] UO: Urine output low, will consult renal. Patiroxi t was started on dopamine yesterday subsequently went into A-fib RVR. Amio bolus was given Continue PT/OT Disposition: Pending course DVT prophylaxis Labs reveiwed- replace electrolytes as needed Patient seen and examined by Dr. Maria. Plan o f care discussed with multidisciplinary team Consultants: cardiovascular surgery at 1600 at 0244 [facility] #:[id number] END OF REPORT 2022-09-28 12:01:00-00:[address] [facility] ([facility] Hospitalist Progress Note REPORT#:[id number] REPORT STATUS: Signed DATE:09/28/22 TIME: 1201 PATIENT: MONICA BECK UNIT #: [id number] ROOM/BED: [place] [address] : 42 AGE: 82 SEX: M ATTEND: Nicolasa Maria MD ADM AUTHOR: Chiki Fernandez MD * ALL edits or amendments must be made on the [employer]/computer document * Subjective Chief complaint: IN BED, NO COMPLAINTS HPI: 82-year-old male with past m edical history of hypertension, hyperlipidemia, type 2 diabetes mellitus, restless leg syndro me, and aortic stenosis is transferred here from [facility] beds at the [facility], where he presen tamra today with complaint of chest pain for the past few weeks. Patie nt complained of substernal chest pain associated with diaphoresis. He was found to hav e elevated troponin I and cardiology was consulted. Patient had left heart catheterization, the results of which are not available at this time. He was then transferred to [facility] for evaluation by cardiothoracic surge ry. Objective General VS/I O: Vital Signs: Date Time Temp Pulse Resp B/P B/P Pulse O2 O2 F low FiO2 Mean Ox Delivery Rate 09/28 0828 100 High flow 3 nasal cannula 09/28 0700 Nasal 2 cannula 09/28 0700 108/58 78 09/28 0700 83 24 99 05/ 0600 91 50 101/54 68 05/10 0500 103/63 79 05/10 0500 87 20 107/48 65 94 05/10 0400 117/61 82 05/10 0400 89 20 113/49 67 98 05/10 0339 99 Nasal 2 cannula 05/10 0300 121/57 82 05/10 0300 87 19 104/45 61 95 05/10 [...] 05/09 2100 81 22 130/55 77 95 05/1999 97.9 05/1999 114/61 80 05/1999 83 19 124/52 73 95 05/ 1925 94 Nasal 2 cannula 09/27 1920 High flow 3 nasal cannula 09/27 1900 86 31 121/53 75 91 05/ 1800 84 29 125/49 72 95 05/09 [...] 05/09 1214 86 26 146/59 86 83 24 hour I O ending at 0700: 05/10 0700 05/09 1900 Intake Total 1374.00 870.00 Output Total 825 720 Balance 549.00 150.00 Intake, IV 874.00 520.00 Intake, Oral 500 350 Output, Chest 400 345 Tube Drainage Output, Urine 425 375 Patient 177 lb 173 lb Weight Weight Standing scale Measurement Method PATIENT WEIGHT: Weight (lb): 177 Weight (oz): 4.03 Weight (kg): 80.400 Medications: Active Meds + DC'd Last 24 Hrs Ipratropium Ollie (ATROVENT) 500 MCG RTQ2H HI N PRN INH Cyanocobalamin (Vitamin B-12 500 mcg [...] (ULTRAM) 25 MG QID PRN PO Ipratropium Ollie (ATROVENT) 500 MCG RTQ4H INH Acetaminophen (TYLENOL) [...] soft Extremities: no edema Musculoskeletal: normal inspection Neuro/SUPERVISOR LUMP ROOM: no motor deficits Skin: normal color Psychiatry: [...] Albumin (3.4 - 5.0 g/dL) 3.70 09/27 1652 1437 1226 Chemistry POC Glucose (70 [...] - 32.0 %) 6.9 L 8.1 L [place] % (Auto) (4.8 - 9.0 %) 8.3 7.2 Eos % (Auto) (0.3 - 3.7 %) 0.0 L 0.0 L Baso % (Auto) (0.0 - 2.0 %) 0.1 0.1 Neut # (Auto) (2.0 - 7.6 x10 3/uL) 7.77 H 6.10 Lymph # (Auto) (1.0 - 3.8 x10 3/uL) 0.64 L 0.59 L [place] # (Auto) (0.1 - 0.8 x10 3/uL) [...] RADIOLOGY - XR CHEST 1 V 09/28 [id number] Report Impression - Status: SIGNED Entered: 09/28/2022 7006 IMPRESSION: 1. No significant interval change. Hypoventilato ry changes in the lung bases. 2. Satisfactory line and tube placement unchange d. Impression By: Gus López Free Text Obj Notes Free Text Obj Notes: General appearance: alert, awake, oriented Head/Eyes: atraumatic, normocephalic ENT: moist mucosal membranes, normal pharynx Neck: non-tender, supple/no meningismus, no JVD Cardiovascular: normal capillary refill, normal heart sounds, regular rate rhythm Respiratory: aerating well, clear to auscultatio n, symmetric expansion Abdomen: non-tender, normal bowel sounds, soft, no distention Extremities: no clubbing, no cyanosis, no edema Neuro/SUPERVISOR LUMP ROOM: alert, oriented X 3, CNII-XII intact Skin: [...] an advanced directive His medical power of energy attorney is son Guille de la vega Electronically Signed by Chiki Fernandez MD on 09/28 at 1203 RPT #:[id number] END OF REPORT 2022-09-28 10:31:00-00:00 [id number] [place] [address] PATIENT NAME: MONICA BECK ADMIT DATE: 09/24/22 ACCOUNT NO: [id number] ROOM NO: [facility] AGE: 82 REPORT TYPE: eELECTROCARDIOGRAM REPORT SEX: M ADMITTING PHYSICIAN:Kathya Maria MD ATTENDING PHYSICIAN:Kathya Maria MD Order: [id number] Test Reason : , Test Date/Time Stamp: [...] QRS widening ( R in aVL , [place] product ) T wave abnormality, consider lateral ischemia Abnormal ECG When compared with ECG of 28-SEP-2022 02:35, Significant changes have occurred Confirmed by MD BRAULIO, ANA ([id number]) on 09/29/19 6:01:49 PM Referred By: Neeru Maria Confirmed by:ANA RAMSEY MD Electronically Signed by Ana Ramsey MD on 0 09/28/22 at 1801 PATIENT NAME: MONICA BECK ACCOUNT #: [id number] 2022-09-28 09:29:00-00:00 [facility] ([facility]) Cardiology Progress Note REPORT#:[id number] REPORT STATUS: Signed DATE:09/28/22 TIME: 928 PATIENT: MONICA BECK UNIT #: [id number] ROOM/BED: 1-1 : 42 AGE: 82 SEX: M ATTEND: Nicolasa Maria MD ADM AUTHOR: Jakob Pa MD * ALL edits or amendments must be made on the [employer] document * Subjective Free Text Subj [...] Flow FiO2 Mean Ox Delivery Rate 09/28 07 Nasal 2 cannula 09/28 07 108/58 78 09/28 0700 83 24 99 09/28 0600 91 50 101/54 68 05/ 0500 103/63 79 05/ 0500 87 20 107/48 65 94 05/ 0400 117/61 82 05/ 0400 89 20 113/49 67 98 / 0339 99 Nasal 2 cannula 09/28 0300 121/57 82 05/ 0300 87 19 104/45 61 95 05/ 0200 102/61 76 05/ 0200 87 18 104/46 62 98 05/10 0103 110/52 75 05/10 0100 85 16 103/46 62 100 05/10 0000 109/57 79 05/10 0000 90 19 109/47 65 97 05/09 2300 94/52 66 05/09 2300 97 22 100/44 60 96 05/ 2200 123/58 83 05/ 2200 99 24 107/50 66 95 05/ 2100 120/68 89 05/ 2100 81 22 130/55 77 95 051999 97.9 051999 114/61 80 051999 83 19 124/52 73 95 09/27 1925 94 Nasal 2 cannula 09/27 1920 High flow 3 nasal cannula 09/27 1900 86 31 121/53 75 91 05/ 1800 84 29 125/49 72 95 05/ 1745 110/56 80 05/ 1745 84 25 110/42 63 95 05/ 1730 110/56 80 05/ 1730 85 33 96/43 63 92 05/ 1715 119/53 82 05/ 1715 82 30 120/44 67 84 05/09 [...] 05/09 1115 76 23 105/40 59 92 09/27 1102 74 24 114/46 67 94 05/ 1100 111/55 76 05/ 1100 73 23 110/44 64 94 09/27 1045 111/57 81 09/27 1045 72 22 108/42 63 95 / 1039 76 25 106/43 63 94 05/ 1030 113/58 82 05/ 1030 75 21 111/45 66 95 05/ 1016 117/53 76 05/ 1016 74 21 113/45 66 93 05/ 1000 71 20 115/46 68 95 / 0945 118/67 87 /01 2845 76 26 117/46 70 94 /01 2840 130/75 95 09/27 0840 74 33 122/49 72 93 09/27 0838 73 09/27 0838 121/60 84 09/27 937 19 95 PATIENT WEIGHT: Weight (lb): 177 Weight (oz): 4.03 Weight (kg): 80.400 Medications: Active Meds + DC'd Last 24 Hrs Ipratropium Ollie (ATROVENT) 500 MCG RTQ2H PRN PRN INH [...] (ULTRAM) 25 MG QID PRN PO Ipratropium Ollie (ATROVENT) 500 MCG RTQ4H INH Acetaminophen (TYLENOL) [...] LE assessment: no edema Musculoskeletal: normal inspection Neuro/SUPERVISOR LUMP ROOM: alert, oriented X 3, normal speech Skin: [...] 213 H Laboratory Tests 09/28 09/28 09/28 2020 0720 0210 Hematology WBC (4.5 - 11.0 [...] - 32.0 %) 6.9 L 8.1 L [place] % (Auto) (4.8 - 9.0 %) 8.3 7.2 Eos % (Auto) (0.3 - 3.7 %) 0.0 L 0.0 L Baso % (Auto) (0.0 - 2.0 %) 0.1 0.1 Neut # (Auto) (2.0 - 7.6 x10 3/uL) 7.77 H 6.10 Lymph # (Auto) (1.0 - 3.8 x10 3/uL) 0.64 L 0.59 L [place] # (Auto) (0.1 - 0.8 x10 3/uL) [...] of DM, HLD, . He presented to [facility] with CP, found to have [...] Jakob Pa MD on at 0851 RPT #:[id number] END OF REPORT 2022-09-28 09:07:00-00:00 [id number] [place], [place] [address] PATIENT NAME: MONICA BECK ADMIT DATE: 0 09/24/22 ACCOUNT NO: [id number] ROOM NO: [facility] AGE: 82 REPORT TYPE: eECHOCARDIOGRAM REPORT SEX: M ADMITTING PHYSICIAN:Kathya Maria MD ATTENDING PHYSICIAN:Kathya Maria MD *[address] [address] Limited Transthoracic Echocardiogram Patient: Monica Beck Study Date: 09/28/2022 BP: Location: [facility] URN: [id number] 2526 : 1940 Age: 82 Height: 64 in / 162.6 cm Gender: M Weight: 173 lb / 78.6 kg BMI/BSA: 29.8 kg/m 2 / 1.91 m 2 *Ordering Physician: Milton Ronquillo *Interpreting Physician: * Jakob Pa MD *Mounter: * Anali Holman [facility] Indications: S/PCABG/AVR, HYPOTENSION. Study data: Transthoracic echocardiogram, [...] PATIENT NAME: MONICA BECK ACCOUNT #: [id number] Measurements Left ventricle Value 09/25/2022 Ref ANNE, [...] PATIENT NAME: MONICA BECK ACCOUNT #: [id number] 2022-09-28 08:39:00-00:00 [facility]L [facility] Critical Care Progress Note REPORT#:[id number] REPORT STATUS: Signed DATE:09/28/22 TIME: 0839 PATIENT: MONICA BECK UNIT #: [id number] ROOM/BED: [place] [address] : 42 AGE: 82 SEX: M ATTEND: Nicolasa Maria MD ADM AUTHOR: Milton Mast MD * ALL edits or amendments must be made on the el [employer]/computer document * Subjective Chief complaint: CABG HPI: [...] 24 hour I O ending at 0700: 05 0700 09/27 1900 Intake Total 1374.00 870.00 Output Total 825 720 Balance 549.00 150.00 Intake, IV 874.00 520.00 Intake, Oral 500 350 Output, Chest 400 345 Tube Drainage Output, Urine 425 375 Patient 80.4 kg 78.471 kg Weight Weight Standing scale Measurement Method PATIENT WEIGHT: Weight (lb): 177 Weight (oz): 4.03 Weight (kg): 80.400 Medications: Active Meds + DC'd Last 24 Hrs Ipratropium Ollie (ATROVENT) 500 MCG RTQ2H PRN PRN INH [...] (ULTRAM) 25 MG QID PRN PO Ipratropium Ollie (ATROVENT) 500 MCG RTQ4H IN H Acetaminophen [...] 09/28 09/28 09/27 09/27 0737 0210 0210 3280 2028 Chemistry Sodium (134 - 147 mEq/L) 136 [...] - 32.0 %) 6.9 L 8.1 L [place] % (Auto) (4.8 - 9.0 %) 8.3 7.2 Eos % (Auto) (0.3 - 3.7 %) 0.0 L 0.0 L Baso % (Auto) (0.0 - 2.0 %) 0.1 0.1 Neut # (Auto) (2.0 - 7.6 x10 3/uL) 7.77 H 6.10 Lymph # (Auto) (1.0 - 3.8 x10 3/uL) 0.64 L 0.59 L [place] # (Auto) (0.1 - 0.8 x10 3/uL) [...] Report Impression - Status: SIGNED Entered: 09/28/2022 7727 IMPRESSION: 1. No significant interval change. Hypoventilato ry changes in the lung bases. 2. Satisfactory line and tube placement unchange d. Impression By: [email or web address] - Gus Genao Free Text Obj Notes Free Text Obj [...] Musculoskeletal: normal inspection, no muscle sp asm Neuro/SUPERVISOR LUMP ROOM: Alert and oriented x3, CNII-XII gross ly [...] MD on 09/19 08/11 at 1245 RPT #:[id number] END OF REPORT 2022-09-28 07:25:00-00:00 [facility]g REPORT#:[id number] REPORT STATUS: Signed DATE:09/28/22 TIME: 724 PATIENT: MONICA BECK UNIT #: [id number] ROOM/BED: 3362-1 : 42 AGE: 82 SEX: M ATTEND: Nicolasa Maria MD ADM AUTHOR: Analilia Erwin Physic * ALL edits or amendments must be made on the [employer]/computer document * General Post-op: day 2 (1) [...] Temp 97.9 09/28 1999 B/P 125/49 09/27 1800 B/P Mean 72 09/27 1800 Pulse 84 09/27 1800 Resp 29 09/27 1800 24 hour I O ending at 0700: [...] soft, non-tender, no distention Extremities: moves all Neuro/SUPERVISOR LUMP ROOM: alert, oriented X 3, normal speech, n o motor deficits Psychiatry: normal affect, normal mood Diagnosis, Assessment Plan Hospital course to date: Mr Beck a very pleasant 82-year-old male with past medical history of diabetes, hyperlipidemia, restless leg syndrome aortic valve stenosis who presented to [facility] complaining of substernal chest pain across the anterior chest positive for n ausea and diaphoresis. CT chest showed small to moderate bilateral pleural effusions, ascending aorta measuring 4.2 cm. Cardiac enzymes elevated pat ient deemed non-STEMI. He was taken to the [facility] coronary angiogram revealed severe multivessel coronary artery disease. Patient started on heparin drip and transferred to [facility] for possible CABG and AVR. PLAN Coronary angiogram images will be uploaded in Zbird system Dr Maria explained to the patient [...] stenosis bilaterally Noncontrasted CT chest performed at [facility] reviewed with Dr. Maria. Images will be uploaded in our system. Coronary angiogram images uploaded in Draft o Plan for CABG and AVR tomorr [...] with multidisciplinary team Consultants: cardiovascular surgery at 1629 at 0244 RPT #:[id number] END OF REPORT 2022-09-28 02:35:00-00:00 [id number] [place] [address] PATIENT NAME: MONICA BECK ADMIT DATE: 0 09/24/22 ACCOUNT NO: [id number] ROOM NO: [facility] AGE: 82 REPORT TYPE: eELECTROCARDIOGRAM REPORT SEX: M ADMITTING PHYSICIAN:Kathya Maria MD ATTENDING PHYSICIAN:Kathya Maria MD Order: [id number] Test Reason : s/p cabg + avr [...] by MD BRAULIO, ANA ([id number]) on 09/29/19 6:01:42 PM Referred By: Neeru Maria Confirmed by:ANA SANCHEZ MD Electronically Signed by Ana Ramsey MD on 0 09/28/22 at 1801 PATIENT NAME: MONICA BECK ACCOUNT #: [id number] 2022-09-27 16:07:00-00:00 [facility] Cardiothoracic Surgery Prog REPORT#:[id number] REPORT STATUS: Signed DATE:09/27/22 TIME: 1607 PATIENT: MONICA BECK UNIT #: [id number] ROOM/BED: [place] [address] : 42 AGE: 82 SEX: M ATTEND: Nicolasa Maria MD ADM AUTHOR: Analilia Erwin Physic * ALL edits or amendments must be made on the [employer] document * General Post-op: day 1 (1) [...] 09/27 1506 O2 Delivery Nasal cannula 09/27 08 O2 Flow Rate 2 09/27 0812 Temp [...] soft, non-tender, no distention Extremities: moves all Neuro/SUPERVISOR LUMP ROOM: alert, oriented X 3, normal speech, n o motor deficits Psychiatry: normal affect, normal mood Diagnosis, Assessment Plan Hospital course to date: Mr Beck a very pleasant 82-year-old male with past medical history of diabetes, hyperlipidemia, restless leg syndrome aortic valve stenosis who presented to [facility] complaining of substernal chest pain across the anterior chest positive for n ausea and diaphoresis. CT chest showed small to moderate bilateral pleural effusions, ascending aorta measuring 4.2 cm. Cardiac enzymes elevated pat ient deemed non-STEMI. He was taken to the [facility] coronary angiogram revealed severe multivessel coronary artery disease. Patient started on heparin drip and transferred to [facility] for possible CABG and AVR. PLAN Coronary angiogram images will be uploaded in [employer] system Dr Maria explained to the patient [...] stenosis bilaterally Noncontrasted CT chest performed at [facility] reviewed with Dr. Maria. Images will be uploaded in our system. Coronary angiogram images uploaded in Draft o Plan for CABG and AVR tomorr [...] Cardiac: remains sinus rhtyhm. Pacing wires on GI: Continue Bowel regimen, no bm yet UO: 1200 Continue PT/OT Disposition: DVT prophylaxis Labs reveiwed- replace electrolytes as needed Patient seen and examined by Dr. Maria. Plan o f care discussed with multidisciplinary team Consultants: cardiovascular surgery at 1809 at 0739 RPT #:[id number] END OF REPORT 2022-09-27 13:17:00-00:00 [facility]L [facility] ([facility]) Cardiology Consultation REPORT#:[id number] REPORT STATUS: Signed DATE:09/27/22 TIME: 1316 PATIENT: MONICA BECK UNIT #: [id number] ROOM/BED: [place] [address] : 42 AGE: 82 SEX: M ATTEND: Nicolasa Maria MD ADM AUTHOR: Geneva Silverman [facility] * ALL edits or amendments must be made on the el [employer]/computer document * Geneva Silverman 09/27/22 1317: History of Present Illness HPI Requesting Clinician: Dr. Maria Reason for consult: CAD Chief complaint: CAD PCP: PCP: Kathya Maria MD HPI: 82 YO male with MHx of DM, HLD, . [facility], found to have NSTEMI. LHC [...] Pulse Resp B/P B/P Mean Pulse Ox FiO 2 09/26-09/27 36.1-37.0 68-106 8-45 85-173/31-83 57-111 83-100 [...] Meds + DC'd Last 24 Hrs Ipratropium Ollie (ATROVENT) 500 MCG RTQ2H PRN PRN INH [...] (ULTRAM) 25 MG QID PRN PO Ipratropium Ollie (ATROVENT) 500 MCG RTQ4H INH Acetaminophen (TYLENOL) [...] LE assessment: no edema Musculoskeletal: normal inspection Neuro/SUPERVISOR LUMP ROOM: alert, oriented X 3, normal speech Skin: [...] 09/27 09/27 09/27 1437 1226 1131 0733 0447 Chemistry POC Creatinine (0.8 - 1.3 mg/dL) 1.0 POC Glucose (70 - 110 MG/DL) 149 H 162 H 213 H 141 H POC Glucose (mg/dL) (70 - 110 MG/DL) 118 H 09/27 09/27 09/27 09/26 09/26 0210 0210 0127 0594 4690 Chemistry Sodium (134 - 147 mEq/L) 139 [...] - 110 MG/DL) 144 H Laboratory Tests 09/27 09/26 09/26 0525 1630 1524 Coagulation INR (0.8 - 1.2) [...] %) 7.7 L 4.4 L 7.5 L [place] % (Auto) (4.8 - 9.0 %) 9.0 8.6 4.5 L Eos % (Auto) (0.3 - 3.7 %) 0.1 L 0.0 L 0.2 L Baso % (Auto) (0.0 - 2.0 %) 0.1 0.1 0.1 Neut # (Auto) (2.0 - 7.6 x10 3/uL) 7.88 H 7.83 H 11.11 H Lymph # (Auto) (1.0 - 3.8 x10 3/uL) 0.73 L 0.40 L 0.96 L [place] # (Auto) (0.1 - 0.8 x10 3/uL) [...] Moderate enlarged cardiac silhouette. Impression By: Travis Jacobesn M.D. RADIOLOGY - XR CHEST 1 V 09/27 0509 Report Impression - Status: SIGNED Entered: 09/27/2022 0747 IMPRESSION: 1. Linear bilateral lower chest pulmonary atelec tasis, or scarring. 2. Moderate enlarged cardiac silhouette. 3. Mild interstitial pulmonary edema versus inf iltrates. 4. Small bilateral pleural effusions. Impression By: Travis Jacobsen M.D. Results: labs reviewed, vital signs reviewed, [facility] personally rev'd EKG Interpretation: normal [...] of DM, HLD, . He presented to [facility] with CP, found to have [...] Jakob Pa MD on at 0851 RPT #:[id number] END OF REPORT 2022-09-27 12:32:00-00:00 [facility] Hospitalist Progress Note REPORT#:[id number] REPORT STATUS: Signed DATE:09/27/22 TIME: 1232 PATIENT: MONICA BECK UNIT #: [id number] ROOM/BED: [place] [address] : 42 AGE: 82 SEX: M ATTEND: Nicolasa Maria MD ADM AUTHOR: Chiki Fernandez MD * ALL edits or amendments must be made on the el [employer]/computer document * Subjective Chief complaint: NOT FEELING WELL YET, BUT SITTING IN CHAIR NOW HPI: 82-year-old male with past m edical history of hypertension, hyperlipidemia, type 2 diabetes mellitus, restless leg syndro me, and aortic stenosis is transferred here from [facility] beds at the [facility], where he presen tamra today with complaint of chest pain for the past few weeks. Patie nt complained of substernal chest pain associated with diaphoresis. He was found to hav e elevated troponin I and cardiology was consulted. Patient had left heart catheterization, the results of which are not available at this time. He was then transferred to [facility] for evaluation by cardiothoracic surge ry. Objective [...] Meds + DC'd Last 24 Hrs Ipratropium Ollie (ATROVENT) 500 MCG RTQ2H PRN PRN INH [...] 0 .STK-ME D ONE .ROUTE (DC) Ipratropium Ollie (ATROVENT) 500 MCG RTQ4H INH Albumin Human [...] Chlorhexidine Gluconate (PERIDEX) 15 ML Q2H MM (DC) Dextrose/Water (DEXTROSE 10% IN WATER) 125 [...] Sodium (KEFZOL OR ANCEF) 2 GM PREOP STEEL GRINDER IV (DC) Vancomycin HCl (VANCOMYCIN HCL) 1,000 [...] soft Extremities: no edema Musculoskeletal: normal inspection Neuro/SUPERVISOR LUMP ROOM: no motor deficits Skin: normal color Psychiatry: [...] 143 H 756 H 817 H 09/26 1300 Coagulation Activated Coag Time (74 - [...] %) 7.7 L 4.4 L 7.5 L [place] % (Auto) (4.8 - 9.0 %) 9.0 8.6 4.5 L Eos % (Auto) (0.3 - 3.7 %) 0.1 L 0.0 L 0.2 L Baso % (Auto) (0.0 - 2.0 %) 0.1 0.1 0.1 Neut # (Auto) (2.0 - 7.6 x10 3/uL) 7.88 H 7.83 H 11.11 H Lymph # (Auto) (1.0 - 3.8 x10 3/uL) 0.73 L 0.40 L 0.96 L [place] # (Auto) (0.1 - 0.8 x10 3/uL) 0.86 H 0.78 0.58 Eos # (Auto) (0.0 - 0.2 x10 3/uL) 0.01 0.00 0. 02 Baso # (Auto) (0.0 - 0.2 x10 [...] Report Impression - Status: SIGNED Entered: 09/26/2022 2980 IMPRESSION: 1. Small bilateral pleural effusions. 2. Moderate pulmonary edema versus infiltrates, pneumonia. 3. Moderate enlarged cardiac silhouette. Impression By: [email or web address] - Nayan Jacobsen M.D. RADIOLOGY - XR CHEST 1 V 09/27 1567 Report Impression - Status: SIGNED Entered: 09/27/2022 9627 IMPRESSION: 1. Linear bilateral lower chest pulmonary atelec tasis, or scarring. 2. Moderate enlarged cardiac silhouette. 3. Mild interstitial pulmonary edema versus infi ltrates. 4. Small bilateral pleural effusions. Impression By: [email or web address] - Nayan Jacobsen M.D. Free Text Obj Notes Free [...] Extremities: no clubbing, no cyanosis, no edema Neuro/SUPERVISOR LUMP ROOM: alert, oriented X 3, CNII-XII intact Skin: dry, intact Psychiatry: normal affect, normal judgment/insig ht Diagnosis, Assessment Plan Consultants: cardiovascular surgery Free Text DxA P Notes Free text DxA P notes: NSTEMI, 3-V CAD, SEVERE , S/P CABGX2, S/P AVR, S/P LEYDI ISOLATION - CARD/CTS SEEN, PLAN PER CTS, ON CT/KING Patient found to have elevated troponin at [facility] Results of left heart cath not available at [facility] s time Continue aspirin 81 [...] an advanced directive His medical power of energy attorney is son Guille de la vega Electronically Signed by Chiki Fernandez MD on 09/27 at 1234 RPT #:[id number] END OF REPORT 2022-09-27 11:53:00-00:00 [id number] [address] PATIENT NAME: MONICA BECK ADMIT DATE: 09/24/22 ACCOUNT NO: [id number] ROOM NO: [facility] AGE: 82 REPORT TYPE: eELECTROCARDIOGRAM REPORT SEX: M ADMITTING PHYSICIAN:Kathya Maria MD ATTENDING PHYSICIAN:Kathya Maria MD Order: [id number] Test Reason : r/o afib Test Date/Time [...] By: Self Referred Confirmed by:ANA SANCHEZ MD at 1801 PATIENT NAME: MONICA BECK ACCOUNT #: [id number] 2022-09-27 08:25:00-00:00 [facility] ([facility]) Critical Care Progress Note REPORT#:[id number] REPORT STATUS: Signed DATE:09/27/22 TIME: 824 PATIENT: MONICA BECK UNIT #: [id number] ROOM/BED: [facility]-1 : 42 AGE: 82 SEX: M ATTEND: Nicolasa Maria MD ADM AUTHOR: Milton Mast MD * ALL edits or amendments must be made on the el [employer]/computer document * Subjective Chief complaint: CABG HPI: [...] cannula 09/28 811 O2 Flow Rate 2 09/27 0812 B/P 95/53 09/27 0700 B/P Mean 69 09/27 0700 Pulse 70 09/27 0700 Resp 26 09/27 0700 Temp 97.7 09/27 0400 24 hour I [...] Meds + DC'd Last 24 Hrs Ipratropium Ollie (ATROVENT) 500 MCG RTQ2H PRN PRN INH [...] PO Albumin Human (ALBUMINAR 5% 12.5GM/250ML) 250 M L ONCE IV (CKD) Calcium Gluconate (Calcium Gluconate [...] 0 .STK-ME D ONE .ROUTE (DC) Ipratropium Ollie (ATROVENT) 500 MCG RTQ4H INH Albumin Human [...] 50 ML .STK-MED ONE IV (DC) Rocuronium Ollie (ZEMURON) 0 .STK-MED ONE IV ( DC) [...] Sodium (KEFZOL OR ANCEF) 2 GM PREOP STEEL GRINDER IV (DC) Vancomycin HCl (VANCOMYCIN HCL) 1,000 [...] 1.7 mmol/l) 1.4 0.9 0.9 0.5 L /08 09/26 1226 1109 Blood Gas O2 Saturation [...] 733 H 149 H Laboratory Tests 09/27 09/27 09/26 0525 [...] %) 7.7 L 4.4 L 7.5 L [place] % (Auto) (4.8 - 9.0 %) 9.0 8.6 4.5 L Eos % (Auto) (0.3 - 3.7 %) 0.1 L 0.0 L 0.2 L Baso % (Auto) (0.0 - 2.0 %) 0.1 0.1 0.1 Neut # (Auto) (2.0 - 7.6 x10 3/uL) 7.88 H 7.83 H 11.11 H Lymph # (Auto) (1.0 - 3.8 x10 3/uL) 0.73 L 0.40 L 0.96 L [place] # (Auto) (0.1 - 0.8 x10 3/uL) [...] 1630: [Embedded Image Not Available] Microbiology: 09/25 838 NASAL: MSSA Surveillance Screen [...] Musculoskeletal: normal inspection, no muscle sp asm Neuro/SUPERVISOR LUMP ROOM: Alert and oriented x3, CNII-XII gross ly [...] MD on 09/19 08/11 at 1245 RPT #:[id number] END OF REPORT 2022-09-27 04:00:00-00:00 [id number] [place] [address] PATIENT NAME: MONICA BECK ADMIT DATE: 0 09/24/22 ACCOUNT NO: [id number] ROOM NO: G.2204 AGE: 82 REPORT TYPE: eELECTROCARDIOGRAM REPORT SEX: M ADMITTING PHYSICIAN:Kathya Maria MD ATTENDING PHYSICIAN:Kathya Maria MD Order: [id number] Test Reason : s/p cabg Test Date/Time [...] 26-SEP-2022 16:40, No changes Confirmed by MD BRAULIO, ANA ([id number]) on 1:59:50 PM Referred By: Self Referred Confirmed by:ANA SANCHEZ MD Electronically Signed by Ana Ramsey MD on 0 09/27/22 at 1359 PATIENT NAME: MONICA BECK ACCOUNT #: [id number] 2022-09-26 17:18:00-00:00 [id number] [place] [address] PATIENT NAME: MONICA BECK ADMIT DATE: 0 09/24/22 ACCOUNT NO: [id number] ROOM NO: G.2201 AGE: 82 REPORT TYPE: OPERATIVE REPORT SEX: [...] 5. Posterior pericardiotomy. SURGEON: Kathya Maria M.D. MANUFACTURING MANAGEMENT ASSOCIATE: Jose Guadalupe Chacon. ANESTHESIOLOGIST: Dr. Butler. ANESTHESIA: [...] PATIENT NAME: MONICA BECK ACCOUNT #: [id number] the aortic annulus. 9. Following decalcification, the [...] in size. Arteriotomy was performed with a Allen blade and extended with Will scissors. A [...] size. Arteriotomy was performe d with a Allen blade and extended with Will scissors. NAIR [...] ed. One ventricular wire was placed. A 28-[place] chest tube was ashley nori in the mediastinum and 28-angled chest tube was placed in the left pleural space. Once the patie nt was at temperature, PATIENT NAME: MONICA BECK ACCOUNT #: [id number] de-airing maneuvers were rep eated and the [...] Dictated: 09/26/2022 17:18:27 Date Transcribed: 09/26/2022 21:18:02 MITCHELL/LUIS A Receipt ID: [id number] Authenticated by Kathy Maria MD On 023 12:14:36 PM at 1214 PATIENT NAME: MONICA BECK DOCOURTNEYJohn ACCOUNT #: [id number] 2022-09-26 17:10:00-00:00 [facility] ([facility]) Brief Op Note REPORT#:[id number] REPORT STATUS: Signed DATE:09/26/22 TIME: 1709 PATIENT: MONICA BECK UNIT #: [id number] ROOM/BED: 2203 : 42 AGE: 82 SEX: M ATTEND: Nicolasa Maria MD ADM AUTHOR: Kathya Maria MD * ALL edits or amendments must be made on the [employer] document * Op/Inv Proc Note - Brief Pre-procedure diagnosis: CAD Post-procedure diagnosis: same as pre procedure dx Procedures performed: AVR (25 INSPIRIS) CABG X 2 (NAIR-LAD, SVG-OM) ALAA EVH (RGSV) POSTERIOR PERICARDIOTOMY Primary Surgeon: CARSON Currency Machine Operator(s): PALAK Findings: HEAVILY CALCIFIED TRCUSPID AORTIC VALVE Complications: none Estimated blood loss in ml's: 100 CC Specimens removed/altered: AORTIC CUSP at 1713 RPT #:[id number] END OF REPORT 2022-09-26 16:57:00-00:00 [facility] ([facility]) Critical Care Consult Note REPORT#:[id number] REPORT STATUS: Signed DATE:09/26/22 TIME: 1656 PATIENT: MONICA BECK UNIT #: [id number] ROOM/BED: 2200 : 42 AGE: 82 SEX: M ATTEND: Nicolasa Maria MD ADM AUTHOR: Milton Mast MD * ALL edits or amendments must be made on the [employer] document * History of Present Illness HPI [...] Pulse Ox 96 09/26 0753 B/P 139/64 / 0753 B/P Mean 0.0 / 0753 O2 Delivery Room air / 0753 Temp 96.8 / 0753 Pulse 67 / 0753 Resp 20 09/26 0753 24 hour I O ending at 0700: 09/26 0700 09/25 1900 Intake Total 657.20 849.00 Output Total 975 Balance -317.80 849.00 Intake, IV 211.20 249.00 Intake, Oral 446 600 Number 1 Bowel Movements Output, Urine 975 Patient 74.3 kg Weight Weight Standing scale Measurement Method Patient Weight and BMI Weight (kg): 74.300 BMI: 26.4 Medications: Active Meds + DC'd Last 24 Hrs Ipratropium Ollie (ATROVENT) 500 MCG RTQ2H PRN PRN INH [...] 0 .STK-ME D ONE .ROUTE (DC) Ipratropium Ollie (ATROVENT) 500 MCG RTQ4H INH Albumin Human [...] 50 ML .STK-MED ONE IV (DC) Rocuronium Ollie (ZEMURON) 0 .STK-MED ONE IV ( DC) [...] 0 .STK-MED ONE .ROUTE ( DC) Rocuronium Ollie (ZEMURON) 0 .STK-MED ONE IV ( DC) [...] Sodium (KEFZOL OR ANCEF) 2 GM PREOP STEEL GRINDER IV (DC) Metoprolol Tartrate (LOPRESSOR) 6.25 MG [...] Gabapentin (NEURONTIN) 200 MG PREOP ONCALL PO ( DC) Sodium Chloride (SODIUM CHLORIDE) 20 ML ASDIR [...] (RESTORIL) 15 MG BEDTIME PRN PRN PO ( DC) Heparin Sodium (HEPARIN 5000 UNITS/ML) 0 ASDIR [...] - 100.0 mmHg) 417.0 *H 525.6 *H 106 .2 H 563.7 *H ABG HCO3 (22.0 - [...] (70 - 110 MG/DL) 99 116 H 1 44 H Calcium (8.0 - 10.5 mg/dL) 8.5 Magnesium (1.80 - 2.40 mg/dL) 2.80 H 09/26 09/26 09/26 09/26 09/26 1358 1336 1259 1226 1109 Chemistry POC Creatinine (0.8 - 1.3 mg/dL) 0.8 0.9 0.9 0 .8 0.9 POC Glucose (mg/dL) (70 - 110 [...] Cholesterol/HDL Ratio (3.43 - 4.97 RATIO) 3.99 09/257 Chemistry POC Glucose (70 - 110 MG/DL) 158 H Laboratory Tests 09/26 09/26 09/26 09/26 1630 1524 1401 1338 Coagulation INR (0.8 - 1.2) 1.6 H PTT ([place]) (25.0 - 39.5 Seconds) 40.7 H PT Patient/Control Mix (9.3 - 12.9 SECONDS) 18. 1 H Activated Coag Time (74 - 137 SEC) 143 H 756 H 817 H 05/ 0509/26 1300 1228 1111 0300 Coagulation INR (0.8 - 1.2) 1.2 PTT ([place]) (25.0 - 39.5 Seconds) 48.1 H PT Patient/Control Mix (9.3 - 12.9 SECONDS) 13 .8 H Activated Coag Time (74 - 137 SEC) 883 H 733 H 149 H 09/25 2040 Coagulation PTT ([place]) (25.0 - 39.5 Seconds) 73.6 H Laboratory [...] (14.0 - 32.0 %) 7.5 L 24.9 [place] % (Auto) (4.8 - 9.0 %) 4.5 L 6.9 Eos % (Auto) (0.3 - 3.7 %) 0.2 L 3.0 Baso % (Auto) (0.0 - 2.0 %) 0.1 0.4 Neut # (Auto) (2.0 - 7.6 x10 3/uL) 11.11 H 3.65 Lymph # (Auto) (1.0 - 3.8 x10 3/uL) 0.96 L 1.41 [place] # (Auto) (0.1 - 0.8 x10 3/uL) [...] (0.0 - 0.1 x10 3/uL) 0. 00 0.00 Microbiology: 09/25 838 NASAL: MSSA Surveillance [...] Musculoskeletal: normal inspection, no muscle sp asm Neuro/SUPERVISOR LUMP ROOM: alert and oriented, CNII-XII grossly intact, no [...] Mast MD on 09/19 08/11 at 1245 [facility] #:[id number] END OF REPORT 2022-09-26 16:40:00-00:00 [id number] [place] [address] PATIENT NAME: MONICA BECK ADMIT DATE: 09/24/22 ACCOUNT NO: [id number] ROOM NO: G.2204 AGE: 82 REPORT TYPE: eELECTROCARDIOGRAM REPORT SEX: M ADMITTING PHYSICIAN:Kathya Maria MD ATTENDING PHYSICIAN:Kathya Maria MD Order: [id number] Test Reason : sp cabg Test Date/Time Stamp: MonSep 26 2022 16:40:28 Blood Pressure : / mmHG Vent. Rate : 074 BPM Atrial Rate : 074 BPM P-R Int : 230 ms QRS Dur : 134 ms QT Int : 424 ms P-R-T Axes : 042 -60 123 degre es QTc Int : 470 ms Sinus rhythm with sinus arrhythmia with 1st degr ee AV block Left axis deviation Nonspecific intraventricular block Minimal voltage criteria for LVH, may be normal variant ( Gerardo product ) Possible Lateral infarct , age undetermined Inferior infarct , age undetermined Abnormal ECG No previous ECGs available Confirmed by BLAINE GIORDANO MD ([id number]) on 3 8:36:46 AM Referred By: Self Referred Confirmed by:BLAINE SRINIVASAN MD Electronically Signed by Blaine Giordano MD on at [id number] PATIENT NAME: MONICA BECK ACCOUNT #: [id number] 2022-09-26 12:42:00-00:00 [facility] [place] Hospitalist Progress Note REPORT#:[id number] REPORT STATUS: Signed DATE:09/26/22 TIME: 1242 PATIENT: MONICA BECK UNIT #: [id number] ROOM/BED: [place] [address] : [birth year] AGE: 82 SEX: M ATTEND: Nicolasa Maria MD ADM AUTHOR: Chiki Fernandez MD * ALL edits or amendments must be made on the el [employer]/computer document * Subjective Chief complaint: IN OR FOR CABG/AVR NOW HPI: 82-year-old male with past m edical history of hypertension, hyperlipidemia, type 2 diabetes mellitus, restless leg syndro me, and aortic stenosis is transferred here from [facility] beds at the [facility], where he presen tamra today with complaint of chest pain for the past few weeks. Patie nt complained of substernal chest pain associated with diaphoresis. He was found to hav e elevated troponin I and cardiology was consulted. Patient had left heart catheterization, the results of which are not available at this time. He was then transferred to [facility] for evaluation by cardiothoracic surge ry. Objective General VS/I O: Vital Signs: Date Time Temp Pulse Resp B/P B/P Pulse O2 O2 F low FiO2 Mean Ox Delivery Rate 09/26 0753 96.8 67 20 139/64 0.0 96 Room air 09/26 0413 13 138/65 0.0 09/26 0412 97.7 63 13 135/65 0.0 94 Room air 09/26 0114 97.5 67 14 124/63 0.0 96 Room air 09/25 2038 96 Room air 09/25 1932 98.4 77 13 161/76 104.3 94 Room air 09/25 1619 97.9 74 14 135/61 85 98 24 hour I O ending at 0700: 09/26 0700 09/25 1900 Intake Total 657.20 849.00 Output Total 975 Balance -317.80 849.00 Intake, IV 211.20 249.00 Intake, Oral 446 600 Number 1 Bowel Movements Output, Urine 975 Patient 164 lb Weight Weight Standing scale Measurement Method PATIENT WEIGHT: Weight (lb): 163 Weight (oz): 12.86 Weight (kg): 74.300 Medications: Active Meds + DC'd Last 24 Hrs Rocuronium Ollie (ZEMURON) 0 .STK-MED ONE IV ( DC) [...] 0 .STK-MED ONE .ROUTE ( DC) Rocuronium Ollie (ZEMURON) 0 .STK-MED ONE IV ( DC) [...] soft Extremities: no edema Musculoskeletal: normal inspection Neuro/SUPERVISOR LUMP ROOM: no motor deficits Skin: normal color Psychiatry: [...] Coagulation INR (0.8 - 1.2) 1.2 PTT (Ruby) (25.0 - 39.5 Seconds) 48.1 H 73.6 H PT Patient/Control Mix (9.3 - 12.9 SECONDS) 13. 8 H Activated Coag Time (74 - 137 SEC) 733 H 149 H 09/25 1300 Coagulation PTT (Ruby) (25.0 - 39.5 Seconds) 88.4 H Laboratory [...] % (Auto) (14.0 - 32.0 %) 24.9 Lang[place] % (Auto) (4.8 - 9.0 %) 6.9 Eos % (Auto) (0.3 - 3.7 %) 3.0 Baso % (Auto) (0.0 - 2.0 %) 0.4 Neut # (Auto) (2.0 - 7.6 x10 3/uL) 3.65 Lymph # (Auto) (1.0 - 3.8 x10 3/uL) 1.41 [place]ade # (Auto) (0.1 - 0.8 x10 3/uL) [...] Extremities: no clubbing, no cyanosis, no edema Neuro/SUPERVISOR LUMP ROOM: alert, oriented X 3, CNII-XII intact Skin: dry, intact Psychiatry: normal affect, normal judgment/insig ht Diagnosis, Assessment Plan Consultants: cardiovascular surgery Free Text DxA P Notes Free text DxA P notes: NSTEMI, 3-V CAD, SEVERE , S/P CABG/AVR - CARD/ CTS SEEN, PLAN PER CTS Patient found to have elevated troponin at [facility] Results of left heart cath not available at [facility] s time Continue aspirin 81 [...] an advanced directive His medical power of energy attorney is son Guille de la vega Electronically Signed by Chiki Fernandez MD on 09/26 at 1244 RPT #:[id number] END OF REPORT 2022-09-26 09:24:00-00:00 [id number] [place] [address] PATIENT NAME: MONICA BECK ADMIT DATE: 09/24/22 ACCOUNT NO: [id number] [place] [facility] AGE: 82 REPORT TYPE: eECHOCARDIOGRAM REPORT SEX: M ADMITTING PHYSICIAN:Kathya Maria MD ATTENDING PHYSICIAN:Kathya Maria MD *[place] [address] Transthoracic Echocardiogram Patient: Monica Beck Study Date: 09/25/2022 BP: 112 / 62 Location: [facility] URN: [id number] 2526 : 1940 Age: 82 Height: 66 in / 167.6 cm Gender: M Weight: 166 .6 lb / 75.7 kg BMI/BSA: 27 kg/m 2 / 1.85 m 2 *Ordering Physician: * Alexandra Christie *Interpreting Physician: * Jakob Pa MD *Mounter: * Doris Hughes Indications: Pre-op. Study data: [...] PATIENT NAME: MONICA BECK ACCOUNT #: [id number] relaxation and increased filling pressure (grade 2 diastolic dysfunction). Right ventricle: The cavity size is normal. Syst olic function is mildly reduced. TAPSE measurement is estimated at 16 mm . Insufficient tricuspid regurgitation jet to estimate RVSP. Left atrium: The atrium is at the upper limits o f normal in size. Right atrium: The atrium [...] PATIENT NAME: MONICA BECK ACCOUNT #: [id number] TDI E', med avis, 3.3 cm/sec >=7.0 [...] 39 PATIENT NAME: MONICA BECK ACCOUNT #: [id number] 1-p A4C Aortic valve Value Ref Leaflet [...] Hg --------- LVOT/AV, VTI 0.17 --------- ratio SHWETA, VTI 0.68 cm 2 --------- LVOT/AV, Vpeak 0.18 --------- ratio SHWETA, Vmax 0.68 cm 2 --------- Mitral valve Value Ref Peak E 0.88 m/sec --------- Peak A 0.67 m/sec --------- Decel time 226 ms --------- PHT 112 ms --------- Peak grad, D 3.1 mm Hg --------- Peak E/A ratio 1.31 --------- MVA, PHT 2.1 cm 2 --------- Pulmonic valve Value Ref HI peak v 1.47 m/sec --------- HI peak grad 9 mm Hg --------- HI v, ED 0.73 m/sec --------- Aortic root [...] PATIENT NAME: MONICA BECK ACCOUNT #: [id number] least mild to moderate eccentric regurgitation. 5. Pericardium, extracardiac: A trivial pericard ial effusion cannot be excluded. Prepared and electronically signed by Jakob Pa MD 09/26/2022 09:24 Electronically Signed by Jakob Pa MD on 0 09/26/22 at 0924 PATIENT NAME: MONICA BECK ACCOUNT #: [id number] 2022-09-25 12:25:00-00:00 [facility]L [facility] Cardiothoracic Surgery Prog REPORT#:[id number] REPORT STATUS: Signed DATE:09/25/22 TIME: 1225 PATIENT: MONICA BECK UNIT #: [id number] ROOM/BED: [place] [address] : 42 AGE: 82 SEX: M ATTEND: Nicolasa Maria MD ADM AUTHOR: Alexandra Christie * ALL edits or amendments must be made on the [employer]/computer document * Subjective Chief complaint: Pre CABG, [...] Result Date Time Pulse Ox 98 09/25 1034 B/P 112/62 09/25 1034 B/P Mean 0.0 09/25 1034 O2 Delivery Room air 09/25 1034 Temp 97.9 09/25 1034 Pulse 72 09/25 1034 Resp 14 09/25 1034 24 hour I O ending at 0700: [...] soft, non-tender, no distention Extremities: moves all Neuro/SUPERVISOR LUMP ROOM: alert, oriented X 3, normal speech, n o motor deficits Psychiatry: normal affect, normal mood Current Medications Medications: Active Meds + DC'd Last 24 Hrs Cefazolin Sodium (KEFZOL OR ANCEF) 2 GM PREOP STEEL GRINDER IV (CKD) Metoprolol Tartrate (LOPRESSOR) 6.25 MG [...] % (Auto) (14.0 - 32.0 %) 23.4 Langl[place] % (Auto) (4.8 - 9.0 %) 7.9 Eos % (Auto) (0.3 - 3.7 %) 2.7 Baso % (Auto) (0.0 - 2.0 %) 0.2 Neut # (Auto) (2.0 - 7.6 x10 3/uL) 3.67 Lymph # (Auto) (1.0 - 3.8 x10 3/uL) 1.31 [place] # (Auto) (0.1 - 0.8 x10 3/uL) [...] 0.1 x10 3/uL) 0. 00 Laboratory Tests 09/25 0316 Serology SARS-CoV-2 Ag (Rapid) (Negative) Negative Laboratory Tests 09/25 0655 Urines Urine Color (YEL/STRAW) YELLOW Urine Appearance (CLEAR) CLEAR Urine pH (5.0 - 7.0) 5.0 Ur Specific Bryant (1.005 - 1.030) 1.022 Urine Protein (NEGATIVE) [...] Impressions: ULTRASOUND - DUP VEIN AILEEN 09/24 7264 Report Impression - Status: SIGNED Entered: 09/24/2022 1841 Impression: Vein mapping as described above. Impression By: Celia - Mikey Salmon M.D. ULTRASOUND - DUP EXTRACRANIAL AILEEN 09/24 832 Report Impression - Status: SIGNED Entered: 09/24/20221841 IMPRESSION: 1. RIGHT: Carotid artery stenosis estimated at l ess than 50% 2. LEFT: Carotid artery stenosis estimated at le ss than 50% Impression By: Celia - Mikey Salmon M.D. Diagnosis, Assessment Plan Hospital course to date: Mr Beck a very pleasant 82-year-old male with past medical history of diabetes, hyperlipidemia, restless leg syndrome aortic valve stenosis who presented to [facility] complaining of substernal chest pain across the anterior chest positive for n ausea and diaphoresis. CT chest showed small to moderate bilateral pleural effusions, ascending aorta measuring 4.2 cm. Cardiac enzymes elevated pat ient deemed non-STEMI. He was taken to the [facility] coronary angiogram revealed severe multivessel coronary artery disease. Patient started on heparin drip and transferred to [facility] for possible CABG and AVR. PLAN Coronary angiogram images will be uploaded in [employer] system Dr Maria explained to the patient [...] stenosis bilaterally Noncontrasted CT chest performed at [facility] reviewed with Dr. Maria. Images will be uploaded in our system. Coronary angiogram images uploaded in Draft o Plan for CABG and AVR tomorr ow morning. The surgery, risks involved, STS score, benefits, complications and alternatives were ex plained to the patient. He acknowledged understanding and is willing to pro ceed. Patient changed code status to FULL CODE as he i s going for surgery N.p.o. after midnight Consultants: cardiovascular surgery at 1758 at 0701 RPT #:[id number] END OF REPORT 2022-09-25 11:36:00-00:00 [facility] Hospitalist Progress Note REPORT#:[id number] REPORT STATUS: Signed DATE:09/25/22 TIME: 1136 PATIENT: MONICA BECK UNIT #: [id number] ROOM/BED: [place] [address] : 42 AGE: 82 SEX: M ATTEND: Nicolasa Maria MD ADM AUTHOR: Chiki Fernandez MD * ALL edits or amendments must be made on the [employer]/computer document * Subjective Chief complaint: AT BS, NOC OMPLAINTS, PLAN FOR CABG/AVR ON MONDAY HPI: 82-year-old male with past m edical history of hypertension, hyperlipidemia, type 2 diabetes mellitus, restless leg syndro me, and aortic stenosis is transferred here from [facility] beds at the [facility], where he presen tamra today with complaint of chest pain for the past few weeks. Patie nt complained of substernal chest pain associated with diaphoresis. He was found to hav e elevated troponin I and cardiology was consulted. Patient had left heart catheterization, the results of which are not available at this time. He was then transferred to [facility] for evaluation by cardiothoracic surge ry. Objective General VS/I O: Vital Signs: Date Time Temp Pulse Resp B/P B/P Pulse O2 O2 F low FiO2 Mean Ox Delivery Rate 09/25 1034 97.9 72 14 112/62 0.0 98 Room air / 0706 97.9 72 14 149/67 0.0 97 Room air 05/ 0541 97.7 65 14 149/67 0.0 96 Room air 05/ 0120 98.1 82 14 149/85 0.0 94 Room air 2043 97.7 76 14 133/60 0.0 93 Room air 09/24 1624 97.9 75 14 150/74 99.3 91 Room air 24 hour I O ending at 0700: 07 0700 05/06 1900 Intake Total 1900.40 265.90 Output Total 1320 100 Balance 580.40 165.90 Intake, IV 250.40 205.90 Intake, Oral 1650 60 Number 0 1 Bowel Movements Output, Urine 1320 100 PATIENT WEIGHT: Weight (lb): 167 Weight (oz): 15.88 Weight (kg): 76.200 Medications: Active Meds + DC'd Last 24 Hrs Cefazolin Sodium (KEFZOL OR ANCEF) 2 GM PREOP STEEL GRINDER IV (CKD) Metoprolol Tartrate (LOPRESSOR) 6.25 MG [...] soft Extremities: no edema Musculoskeletal: normal inspection Neuro/SUPERVISOR LUMP ROOM: alert, oriented X 3, normal speech, n o motor deficits Skin: normal color Psychiatry: normal affect, normal judgment/insig ht Results Findings/Data: Laboratory Tests 09/25 2040 1623 [...] (8.0 - 10.5 mg/dL) 8.2 Laboratory Tests 09/250 2329 1700 Coagulation PTT (Ruby) (25.0 - [...] % (Auto) (14.0 - 32.0 %) 23.4 [place] % (Auto) (4.8 - 9.0 %) 7.9 Eos % (Auto) (0.3 - 3.7 %) 2.7 Baso % (Auto) (0.0 - 2.0 %) 0.2 Neut # (Auto) (2.0 - 7.6 x10 3/uL) 3.67 Lymph # (Auto) (1.0 - 3.8 x10 3/uL) 1.31 [place] # (Auto) (0.1 - 0.8 x10 3/uL) [...] pH (5.0 - 7.0) 5.0 Ur Specific Bryant (1.005 - 1.030) 1.022 Urine Protein (NEGATIVE) [...] Report Impression - Status: SIGNED Entered: 09/24/2022 1841 Impression: Vein mapping as described above. Impression [...] Extremities: no clubbing, no cyanosis, no edema Neuro/SUPERVISOR LUMP ROOM: alert, oriented X 3, CNII-XII intact Skin: [...] Hyperlipidemia LDL 40, CONT Atorvastatin 80 mg at bedtime DVT prophylaxis: Heparin drip, cardiology protoc ol Diet: Carbohydrate consistent CODE STATUS: DO NOT RESUSCITATE Patient reports he has an advanced directive His medical power of energy attorney is son Guille de la vega Electronically Signed by Chiki Fernandez MD on 09/25 at 1139 RPT #:[id number] END OF REPORT 2022-09-24 16:39:00-00:00 [facility]) Clinical Note REPORT#:[id number] REPORT STATUS: Signed DATE:09/24/22 TIME: 1638 PATIENT: MONICA BECK UNIT #: [id number] ROOM/BED: [place] [address] : 42 AGE: 82 SEX: M ATTEND: Nicolasa Maria MD ADM AUTHOR: Chiki Fernandez MD * ALL edits or amendments must be made on the [employer] document * Clinical Note Note: EEN DR. RICHTER THIS AM, H/O DM, HTN, NOW 3V CA D, AND , NEED CABG/AVR, CTS SEEN, PREOP EVAL. Electronically Signed by Chiki Fernandez MD on 09/24 at 1639 RPT #:[id number] END OF REPORT 2022-09-24 09:19:00-00:00 [facility] ([facility]) Cardiothoracic Surgery Consult REPORT#:[id number] REPORT STATUS: Signed DATE:09/24/22 TIME: 918 PATIENT: MONICA BECK UNIT #: [id number] ROOM/BED: [place] [address] : 42 AGE: 82 SEX: M ATTEND: Nicolasa Maria MD ADM AUTHOR: Alexandra Christie P * ALL edits or amendments must be made on the [employer] document * Zandra Jimenez 09/24/22 0919: History of Present Illness HPI Chief complaint: Chest pain Aortic stenosis PCP: PCP: Kathya Maria MD HPI: Mr Beck a very pleasant 82-year-old male with past medical history of diabetes, hyperlipidemia, restless leg syndrome aortic valve stenosis who presented to [facility] complaining of substernal chest pain across the anterior chest positive for n ausea and diaphoresis. CT chest showed small to moderate bilateral pleural effusions, ascending aorta measuring 4.2 cm. Cardiac enzymes elevated pat ient deemed non-STEMI. He was taken to the [facility] coronary angiogram revealed severe multivessel coronary artery disease. Patient started on heparin drip and transferred to [facility] for possible CABG and AVR. History Additional [...] PRN 09/24 0245 AC (APRESOLINE) IV 10/24 0244 Central Nervous System Agents Sig/Jocy Start time Last Medication Dose Route Stop Time Status Admin Aspirin 81 MG DAILY 09/24 0900 AC 09/24 (ASPIRIN) PO 10/24 0859 0842 Magnesium Sulfate/ 100 ML ONCE ONE 09/24 0315 D C 09/24 Dextrose IV 09/24 0414 0338 (MAGNESIUM SULFATE 1GM/D5W 100ML) Acetaminophen 650 MG Q4H PRN PRN 09/24 0245 AC (TYLENOL) PO 10/24 0244 Hydrocodone Bitart/ 1 TAB Q6H PRN PRN 09/24 024 5 AC Acetaminophen PO 09/29 0244 (NORCO 5/325) Morphine Sulfate 2 MG Q1H [...] (DEXTROSE 10% IN IV 10/25 243 WATER) Gastrointestinal Drugs Sig/Jocy Start time Last Medication Dose Route Stop Time Status Admin Al Hydrox/Mg Hydrox/ 30 ML Q4H PRN PRN 09/24 02 45 AC Simethicone PO 10/24 024 (MYLANTA) Magnesium Hydroxide 15 ML Q6H PRN PRN 09/24 024 5 AC (MILK OF MAGNESIA) PO 10/24 024 Ondansetron HCl 4 MG Q4H PRN PRN 09/24 0245 AC (ZOFRAN) IV 10/24 0244 Hormones And Synthetic Substit Sig/Jocy Start time Last Medication Dose Route Stop Time Status Admin Insulin Human Lispro 0 AC HS 09/24 0730 AC (HUMALOG) SUBQ 10/24 07 Glucagon 1 [...] Documented: Result Date Time Pulse Ox 95 09/24 0810 B/P 94/53 09/24 0810 B/P Mean 66 09/24 0810 Temp 98.1 / 0810 Pulse 83 / 0810 Resp 15 09/24 0810 24 hour I O ending at 0700: 09/24 0700 09/23 1900 Intake Total Output Total [...] syndrome aortic valve stenosis who presented to [facility] complaining of substernal chest pain across the anterior chest positive for n ausea and diaphoresis. CT chest showed small to moderate bilateral pleural effusions, ascending aorta measuring 4.2 cm. Cardiac enzymes elevated pat ient deemed non-STEMI. He was taken to the [facility] coronary angiogram revealed severe multivessel coronary artery disease. Patient started on heparin drip and transferred to [facility] for possible CABG and AVR. PLAN Coronary angiogram images will be uploaded in [employer] system Dr Maria explained to the patient [...] 09/26 Thank you for the consultation. The maryann ent was seen and plan reviewed with [...] all questions. at 1207 at 0701 RPT #:[id number] END OF REPORT 2022-09-24 02:40:00-00:00 [facility] Hospitalist Consultation REPORT#:[id number] REPORT STATUS: Signed DATE:09/24/22 TIME: 024 PATIENT: MONICA BECK UNIT #: [id number] ROOM/BED: 3356-1 : 42 AGE: 82 SEX: M ATTEND: Nioclasa Maria MD ADM AUTHOR: Mayo Richter DO * ALL edits or amendments must be made on the el [employer]/computer document * History of Present Illness Requesting Clinician: Dr Maria Chief complaint: Chest pain PCP: PCP: ZAHEER HPI: 82-year-old male with past m edical history of hypertension, hyperlipidemia, type 2 diabetes mellitus, restless leg syndro me, and aortic stenosis is transferred here from [facility] at the [facility], where he presen tamra today with complaint of chest pain for the past few weeks. Patie nt complained of substernal chest pain associated with diaphoresis. He was found to hav e elevated troponin I and cardiology was consulted. Patient had left heart catheterization, the results of which are not available at this time. He was then transferred to [facility] for evaluation by cardiothoracic surge ry. History [...] 24 hour I O ending at 0700: 05/06 0700 05/05 1900 Intake Total Output Total [...] Extremities: no clubbing, no cyanosis, no edema Neuro/SUPERVISOR LUMP ROOM: alert, oriented X 3, CNII-XII intact Skin: dry, intact Psychiatry: normal affect, normal judgment/insig ht Diagnosis, Assessment Plan Orders: Procedure Date/time Status COMPREHENSIVE METABOLIC PANEL 09/25 499 Active CONSISTENT CARBOHYDRATE DIET 09/24 B Active Resuscitation Status 09/25 239 Active _RT: OXYGEN THERAPY 09/25 239 Active Vital Signs 09/25 239 Active Telemetry Monitoring 09/25 239 Active Educate/Teach Patient 09/25 239 Active Notify MD: Hypoglycemia 09/25 239 Active Notify MD Vitals 09/25 239 Active Notify MD - Labs 09/25 239 Active MRSA Protocol 09/25 239 Active IV Access 09/25 239 Active Intake Output 09/25 239 Active NPO/Low Intake Insulin Instr 09/25 239 Active Hypoglycemia Orders 09/25 239 Active VTE Education 09/25 239 Active Smoking Cessation Education 09/25 239 Active Educate/Teach Hypoglycemia 09/25 239 Active Weight: Obtain 09/25 239 Active Correctional Insulin Instr 09/25 239 Active Conditional Diagnostic Test 09/25 239 Active Activity 09/25 239 Active BASIC METABOLIC PANEL 09/25 239 Active Consultants: cardiovascular surgery Plan discussed with: patient Time spent: >50% spent on counseling/coordination of care: yes Code Status/Resusc. Discussion Resuscitation discussion: Discussed with: patient Code status: do not resuscitate Free Text DxA P Notes Free Text DxA P Notes: NSTEMI Patient found to have elevated trop[facility] at [facility] Results of left heart cath not [...] an advanced directive His medical power of energy attorney is son Guille de la vega at 0640 RPT #:[id number] END OF REPORT
[2022-12-08] MEDS ORDERED: NA CHLORIDE 0.9% 1,000 ML ONE (07:43)
[2022-12-08] MEDS ORDERED: ONDANSETRON 4 MG/2 ML VIAL ONE (07:44)
[2022-12-08 08:00] LABS: Urine Bilirubin NEGATIVE (Negative); Urine Blood Negative (Negative); Urine Clarity Clear (Clear); Urine Color Colorless (Yellow); Urine Glucose 4+ (Over) (Negative); Urine Protein NEGATIVE (Negative); Urine Urobilinogen Normal (Normal)
[2022-12-08 08:01] LABS: Absolute Lymphocytes (CBC) 0.5 K/uL (0.7-4.9); Hematocrit 44.3 % (39.6-49.0); Lymphocytes % 4.6 % (15.3-44.8); MCV 90.7 fL (80-100); MPV 8.8 fL (7.6-11.3); RBC Red Blood Cell Count 4.89 M/uL (4.33-5.43)
[2022-12-08 08:07] LABS: Protime INR 1.2
[2022-12-08 08:19] LABS: Albumin 3.9 g/dL (3.4-5.0); Bilirubin Total 0.7 mg/dL (0.2-1.0); Potassium 3.7 mEq/L (3.5-5.1); Protein, Total 7.5 g/dL (6.4-8.2)
--- NOTE | 2022-12-08 08:36 | RAD REPORT ---
EXAM DESCRIPTION: Nuria Single View12/08/2022 8:25 am CLINICAL HISTORY: Fever COMPARISON: September 2022 FINDINGS: The lungs appear clear of acute infiltrate. The heart is mildly enlarged. Post surgical changes involve chest IMPRESSION: No acute abnormalities displayed
--- NOTE | 2022-12-08 11:26 | RAD REPORT ---
EXAM DESCRIPTION: CT - Abdomen Pelvis W Contrast - 12/08/2022 11:06 am CLINICAL HISTORY: Abdominal pain/vomiting/fever COMPARISON: none. TECHNIQUE: Computed axial tomography of the abdomen pelvis was obtained. 100 cc Isovue-300 was admin istered intravenously. Oral contrast was not requested which limits evaluation of bowel and appendix All CT scans are performed using dose optimization technique as appropriate and may include automated exposure control or mA/KV adjustment according to patient size. FINDINGS: The gallbladder is not visualized and presumably has been removed. This should be correlat ed clinically. The liver, spleen, pancreas and adrenals unremarkable. Small renal cysts. Two duodenal diverticula. Largest measures 6.6 centimeters The prostate gland is mildly to moderately enlarged. 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
--- NOTE | 2022-12-08 11:42 | ER ---
Nurse's Notes [facility] Name: Monica Gil Age: 82 yrs Sex: Male : 1940 Arrival Date: 12/08/2022 Time: 07:09 Bed 20 Private MD: Diagnosis: Sepsis, unspecified organism;Vomiting, unspecified Presentation: 12/08 07:20 Chief complaint: Patient states: N/V/fever X 2 days. Pt reports taking 1 gram of ld1 tylenol at 0400 this morning. Coronavirus screen: At this time, the client does not indicate any symptoms associated with coronavirus-19. Ebola Screen: No symptoms or risks identified at this time. Risk Assessment: Do you want to hurt yourself or someone else? Patient reports no desire to harm self or others. Onset of symptoms was December 08, 2022 at 07:21. 07:20 Method Of Arrival: Ambulatory ld1 07:20 Acuity: DEXTER 3 ld1 Triage Assessment: 07:21 General: Appears in no apparent distress. comfortable, Behavior is calm, cooperative, ld1 appropriate for age. Pain: Denies pain. EENT: No signs and/or symptoms were reported regarding the EENT system. Neuro: Level of Consciousness is awake, alert, obeys commands, Oriented to person, place, time, situation. Cardiovascular: Capillary refill < 3 seconds Patient's skin is warm and dry. Respiratory: Airway is patent Respiratory effort is even, unlabored. GI: Abdomen is flat, non-distended, Reports nausea, vomiting. : No signs and/or symptoms were reported regarding the genitourinary system. Derm: No signs and/or symptoms reported regarding the dermatologic system. Musculoskeletal: No signs and/or symptoms reported regarding the musculoskeletal system. Historical: - Allergies: 07:21 No Known Allergies; ld1 - PMHx: 07:14 aortic valve stenosis; diabetes mellitus; Hypercholesterolemia; restless leg syndrom; ld1 - PSHx: 07:14 Coronary artery bypass graft; ld1 - Immunization history:: Adult Immunizations up to date. - Social history:: Smoking status: Patient denies any tobacco usage or history of. Patient/guardian denies using alcohol. Screenin:24 [facility] ED Fall Risk Assessment (Adult) History of falling in the last 3 months, kc6 including since admission No falls in past 3 months (0 pts) Confusion or Disorientation No (0 pts) Intoxicated or Sedated No (0 pts) Impaired Gait No (0 pts) Mobility Assist Device Used No (0 pt) Altered Elimination No (0 pt) Score/Fall Risk Level 0 - 2 = Low Risk Oriented to surroundings, Maintained a safe environment, Educated pt \T\ family on fall prevention, incl call for assistance when getting out of bed, Assessed \T\ reinforced patient's understanding of fall precautions, Hourly rounding (assess needs \T\ fall precautionary measures) done. Abuse screen: Denies threats or abuse. Denies injuries from another. Nutritional screening: No deficits noted. Tuberculosis screening: No symptoms or risk factors identified. Assessment: 08:03 General: Appears in no apparent distress. comfortable, Behavior is calm, cooperative, kc6 appropriate for age. Pain: Denies pain. Neuro: Level of Consciousness is awake, alert, obeys commands, Oriented to person, place, time, situation, Appropriate for age. Cardiovascular: Heart tones S1 S2 present Capillary refill < 3 seconds Rhythm is sinus tachycardia Chest pain is denied. Respiratory: Airway is patent Trachea midline Respiratory effort is even, unlabored, Respiratory pattern is regular, symmetrical. GI: Abdomen is flat, non-distended, Bowel sounds present X 4 quads. Abd is soft and non tender X 4 quads. Reports nausea, vomiting, Patient currently denies diarrhea. : Reports urinary frequency. EENT: No signs and/or symptoms were reported regarding the EENT system. Derm: No signs and/or symptoms reported regarding the dermatologic system. Skin is intact, is healthy with good turgor, Skin is pink, warm \T\ dry. Musculoskeletal: No signs and/or symptoms reported regarding the musculoskeletal system. Circulation, motion, and sensation intact. Capillary refill < 3 seconds, Range of motion: intact in all extremities. 08:53 Reassessment: Patient appears in no apparent distress at this time. No changes from kc6 previously documented assessment. Patient and/or family updated on plan of care and expected duration. Pain level reassessed. Patient is alert, oriented x 3, equal unlabored respirations, skin warm/dry/pink. 09:49 Reassessment: Patient appears in no apparent distress at this time. No changes from kc6 previously documented assessment. Patient and/or family updated on plan of care and expected duration. Pain level reassessed. Patient is alert, oriented x 3, equal unlabored respirations, skin warm/dry/pink. 10:36 Reassessment: Patient appears in no apparent distress at this time. No changes from 6 previously documented assessment. Patient and/or family updated on plan of care and expected duration. Pain level reassessed. Patient is alert, oriented x 3, equal unlabored respirations, skin warm/dry/pink. 11:16 Reassessment: Patient appears in no apparent distress at this time. No changes from 6 previously documented assessment. Patient and/or family updated on plan of care and expected duration. Pain level reassessed. Patient is alert, oriented x 3, equal unlabored respirations, skin warm/dry/pink. 11:36 Reassessment: pt reports needing to go pee. pt is weak upon standing to the side of the [facility] bed. pt is awake. alert and oriented to person, time, and situation, but not place. Dr. Lyons notified and at bedside speaking with and pt. pt appears to be 89% on RA. placed on 2L via NC and is currently 95%. 13:00 Reassessment: Patient appears in no apparent distress at this time. No changes from 6 previously documented assessment. Patient and/or family updated on plan of care and expected duration. Pain level reassessed. 13:57 Reassessment: attempted to call report to 4th floor. room is not assigned to a nurse ll1 yet. they will call me back. Vital Signs: 07:20 BP 155 / 83; Pulse 127; Resp 18; Temp 98.2(O); Pulse Ox 94% on R/A; Weight 79.83 kg; ld1 Height 5 ft. 8 in. ; Pain 0/10; 08:04 BP 143 / 80; Pulse 104; Resp 20 S; Pulse Ox 90% on R/A; Pain 0/10; kc6 08:53 BP 129 / 77; Pulse 107; Resp 20 S; Pulse Ox 92% on R/A; kc6 09:49 BP 130 / 74; Pulse 104; Resp 20 S; Pulse Ox 96% on R/A; kc6 10:36 BP 118 / 61; Pulse 105; Resp 20 S; Pulse Ox 92% on R/A; kc6 11:16 BP 133 / 58; Pulse 105; Resp 20 S; Pulse Ox 95% on R/A; kc6 11:38 BP 146 / 75; Pulse 103; Resp 27 S; Temp 102.3(O); Pulse Ox 95% on 2 lpm NC; kc6 13:00 BP 125 / 68; Pulse 104; Resp 27 S; Temp 100.2(O); Pulse Ox 95% on 2 lpm NC; kc6 13:58 BP 94 / 60; Pulse 98; Resp 31 S; Temp 101.1(O); Pulse Ox 95% on 2 lpm NC; ll1 07:20 Body Mass Index 26.76 (79.83 kg, 172.72 cm) ld1 07:20 Pain Scale: Adult ld1 08:04 Pain Scale: Adult kc6 ED Course: 07:11 Patient arrived in ED. im 07:12 Alma Rosa Lyons MD is Attending Physician. sd2 07:15 Nuris Brody, RN is Primary Nurse. kc6 07:21 Triage completed. ld1 07:21 Arm band placed on right wrist. ld1 07:24 Patient has correct armband on for positive identification. Bed in low position. Call kc6 light in reach. Side rails up X2. Adult w/ patient. 07:56 Inserted saline lock: 20 gauge in right antecubital area, using aseptic technique. 6 Blood collected. 08:27 Chest Single View XRAY In Process Unspecified. EDMS 11:08 CT Abd/Pelvis - IV Contrast Only In Process Unspecified. EDMS 11:41 Emigdio Medrano MD is Hospitalizing Provider. sd2 14:27 No provider procedures requiring assistance completed. Patient admitted, IV remains in kc6 place. Administered Medications: 07:56 Drug: NS 0.9% IV 500 ml Route: IV; Rate: 1000 ml; Site: right antecubital; kc6 08:33 Follow up: Response: No adverse reaction; IV Status: Completed infusion; IV Intake: kc6 500ml 07:56 Drug: Ondansetron IVP 4 mg Route: IVP; Site: right antecubital; kc6 08:33 Follow up: Response: No adverse reaction; Nausea is decreased; Vomiting decreased kc6 10:55 Drug: NS 0.9% IV 500 ml Route: IV; Rate: bolus; Site: right antecubital; kc6 13:01 Follow up: Response: No adverse reaction; IV Status: Completed infusion; IV Intake: kc6 100ml 11:47 Drug: Acetaminophen PO 1000 mg Route: PO; kc6 13:01 Follow up: Response: No adverse reaction; Temperature is decreased kc6 12:53 Drug: Piperacillin-Tazobactam IVPB 4.5 grams Route: IVPB; Infused Over: 60 mins; Site: kc6 right antecubital; 13:49 Follow up: Response: No adverse reaction; IV Status: Completed infusion; IV Intake: ll1 100ml 13:49 Drug: vancoMYCIN IVPB 1.5 grams Route: IVPB; Rate: calculated rate; Site: right ll1 antecubital; 14:29 Follow up: Response: No adverse reaction; IV Status: Infusion continued upon admission; kc6 IV Intake: 250ml Medication: 14:28 VIS not applicable for this client. kc6 Intake: 08:33 IV: 500ml; Total: 500ml. kc6 13:01 IV: 100ml; Total: 600ml. kc6 13:49 IV: 100ml; Total: 700ml. ll1 14:29 IV: 250ml; Total: 950ml. kc6 Outcome: 11:41 Decision to Hospitalize by Provider. sd2 14:27 Patient left the ED. kj1 14:28 Admitted to Med/surg accompanied by tech, via stretcher, room 401, with oxygen, with kc6 chart, Report called to Nuris Palomo RN 14:28 Condition: stable 14:28 Instructed on the need for admit. Signatures: Dispatcher [employer] EDMS Karen Duncan kj1 Andrew Delgadillo RN RN ll1 Estelle Kirk RN RN Alma Rosa Yee MD MD sd2 Nuris Brody RN RN kc6 Adelina Manzo Corrections: (The following items were deleted from the chart) 11:39 11:36 Reassessment: pt reports needing to go pee. pt is weak upon standing to the side kc6 of the bed. pt is awake. alert and oriented to person, time, and situation, but not place. Dr. Lyons notified and at bedside speaking with and pt. kc6
--- NOTE | 2022-12-08 11:43 | EDPHYS ---
Physician Documentation [facility] Name: Monica Gil Age: 82 yrs Sex: Male : 1940 Arrival Date: 12/08/2022 Time: 07:09 Bed 20 Private MD: ED Physician Alma Rosa Lyons HPI: 12/08 07:32 This 82 yrs old Male presents to ER via Ambulatory with complaints of Fever, sd2 Nausea/Vomiting. 07:32 82 yo M presents with CC of subjective fever, chills, nausea and vomiting starting at sd2 4AM this morning. Reports 1 episode of emesis and nausea since awakening. Has been able to tolerate water. Denies abdominal pain. Also complains of urinary frequency without dysuria, hematuria or flank pain. Was at a gathering of over 100 people yesterday. Took Tylenol this AM with some relief. Denies CP, SOB, cough, congestion. UTD on all immunizations including COVID, flu and pneumonia vaccinations this year.. Historical: - Allergies: 07:21 No Known Allergies; ld1 - PMHx: 07:14 aortic valve stenosis; diabetes mellitus; Hypercholesterolemia; restless leg syndrom; ld1 - PSHx: 07:14 Coronary artery bypass graft; ld1 - Immunization history:: Adult Immunizations up to date. - Social history:: Smoking status: Patient denies any tobacco usage or history of. Patient/guardian denies using alcohol. ROS: 07:32 Constitutional: Positive for fever, chills, and negative for weight loss, Eyes: sd2 Negative for injury, pain, redness, and discharge, Cardiovascular: Negative for chest pain, palpitations, and edema, Respiratory: Negative for shortness of breath, cough, wheezing. Abdomen/GI: Negative for abdominal pain, diarrhea, Positive for nausea, vomiting Back: Negative for injury and pain, : Negative for dysuria or hematuria. Positive for frequency. MS/Extremity: Negative for injury and deformity, Skin: Negative for injury, rash, and discoloration, Neuro: Negative for headache, numbness and tingling. Exam: 07:32 Constitutional: This is a well developed, well nourished patient who is awake, alert, sd2 and in no acute distress. Head/Face: Normocephalic, atraumatic. Eyes: EOMI, normal conjunctiva bilaterally Chest/axilla: Normal chest wall appearance and motion. Nontender with no deformity. Cardiovascular: Tachycardic rate and irregularly irregular rhythm with a normal S1 and S2. No gallops, murmurs, or rubs. 2+ distal pulses. Respiratory: Lungs have equal breath sounds bilaterally, clear to auscultation and percussion. No rales, rhonchi or wheezes noted. No increased work of breathing, no retractions or nasal flaring. Abdomen/GI: Soft, non-tender, with normal bowel sounds. No guarding or rebound. No evidence of tenderness throughout. Back: No spinal tenderness. No costovertebral tenderness. Full range of motion. Skin: Warm, dry with normal turgor. Normal color with no rashes, no lesions, and no evidence of cellulitis. MS/ Extremity: Pulses equal, no cyanosis. Neurovascular intact. Full, normal range of motion. Ambulatory without difficulty. Psych: Awake, alert, with orientation to person, place and time. Behavior, mood, and affect are within normal limits. 07:41 ECG was reviewed by the Attending Physician. A-fib w/ RVR, rate 105, no clear STEMI sd2 criteria but wandering baseline and difficult to interpret, will repeat once slowed down 10:29 ECG was reviewed by the Attending Physician. Repeat EKG shows sinus tachycardia with sd2 PACs, rate 106, no STEMI criteria with nonspecific intraventricular block present Vital Signs: 07:20 BP 155 / 83; Pulse 127; Resp 18; Temp 98.2(O); Pulse Ox 94% on R/A; Weight 79.83 kg; ld1 Height 5 ft. 8 in. ; Pain 0/10; 08:04 BP 143 / 80; Pulse 104; Resp 20 S; Pulse Ox 90% on R/A; Pain 0/10; kc6 08:53 BP 129 / 77; Pulse 107; Resp 20 S; Pulse Ox 92% on R/A; kc6 09:49 BP 130 / 74; Pulse 104; Resp 20 S; Pulse Ox 96% on R/A; kc6 10:36 BP 118 / 61; Pulse 105; Resp 20 S; Pulse Ox 92% on R/A; kc6 11:16 BP 133 / 58; Pulse 105; Resp 20 S; Pulse Ox 95% on R/A; kc6 11:38 BP 146 / 75; Pulse 103; Resp 27 S; Temp 102.3(O); Pulse Ox 95% on 2 lpm NC; kc6 13:00 BP 125 / 68; Pulse 104; Resp 27 S; Temp 100.2(O); Pulse Ox 95% on 2 lpm NC; kc6 13:58 BP 94 / 60; Pulse 98; Resp 31 S; Temp 101.1(O); Pulse Ox 95% on 2 lpm NC; ll1 07:20 Body Mass Index 26.76 (79.83 kg, 172.72 cm) ld1 07:20 Pain Scale: Adult ld1 08:04 Pain Scale: Adult kc6 MDM: 07:32 Differential diagnosis: GE, COVID, flu, ACS, dehydration, intra-abdominal infection sd2 among others. Data reviewed: vital signs, nurses notes, lab test result(s), EKG, radiologic studies. I considered the following discharge prescriptions or medication management in the emergency department Medications were administered in the Emergency Department. See MAR. Historians other than the Patient: Spouse/Significant Other: provides HPI. Care significantly affected by the following chronic conditions: Diabetes, Heart Disease. 07:36 Patient medically screened. sd2 11:40 ED course: Informed of patient's elevated temperature. He now meets SIRS criteria and sd2 sepsis protocol has been initiated at this time. Prior to this time, the patient did not have more than one SIRS criteria to meet sepsis. Blood cultures ordered as well as broad spectrum abx. . 12/08 07:31 Order name: CBC with Diff; Complete Time: 08:12 sd2 12/08 07:31 Order name: CMP; Complete Time: 08:42 sd2 12/08 07:31 Order name: Lactate w/ 2H reflex if indic.; Complete Time: 08:42 sd2 12/08 07:31 Order name: Protime (+inr); Complete Time: 08:12 sd2 12/08 07:31 Order name: Ptt, Activated; Complete Time: 08:12 sd12/08 07:31 Order name: Urinalysis w/ reflexes; Complete Time: 08:12 sd2 12/08 07:31 Order name: Procalcitonin; Complete Time: 10:47 sd2 12/08 07:31 Order name: COVID-19 SARS RT PCR; Complete Time: 08:42 sd2 12/08 07:31 Order name: Flu; Complete Time: 08:42 sd2 12/08 07:36 Order name: Troponin High Sensitivity; Complete Time: 10:14 sd2 12/08 11:39 Order name: Blood Culture Adult (2) sd2 12/08 12:18 Order name: Urinalysis w/ reflexes EDMS 12/08 13:36 Order name: NT PRO-BNP EDMS 12/08 07:31 Order name: Chest Single View XRAY; Complete Time: 08:42 sd2 12/08 10:49 Order name: CT Abd/Pelvis - IV Contrast Only; Complete Time: 11:29 sd2 12/08 12:42 Order name: CT; Complete Time: 12:43 EDMS 12/08 07:31 Order name: EKG; Complete Time: 07:33 sd2 12/08 07:31 Order name: Accucheck; Complete Time: 07:56 sd2 12/08 07:31 Order name: Cardiac monitoring; Complete Time: 07:41 sd2 12/08 07:31 Order name: EKG - Nurse/Tech; Complete Time: 07:41 sd2 12/08 07:31 Order name: IV Saline Lock - Large Bore; Complete Time: 07:56 sd2 12/08 07:31 Order name: Labs collected and sent; Complete Time: 07:56 sd2 12/08 07:31 Order name: O2 Per Protocol; Complete Time: 07:41 sd12/08 07:31 Order name: O2 Sat Monitoring; Complete Time: 07:41 sd2 12/08 07:31 Order name: Vital Signs; Complete Time: 07:56 sd2 Administered Medications: 07:56 Drug: NS 0.9% IV 500 ml Route: IV; Rate: 1000 ml; Site: right antecubital; kc6 08:33 Follow up: Response: No adverse reaction; IV Status: Completed infusion; IV Intake: kc6 500ml 07:56 Drug: Ondansetron IVP 4 mg Route: IVP; Site: right antecubital; kc6 08:33 Follow up: Response: No adverse reaction; Nausea is decreased; Vomiting decreased kc6 10:55 Drug: NS 0.9% IV 500 ml Route: IV; Rate: bolus; Site: right antecubital; kc6 13:01 Follow up: Response: No adverse reaction; IV Status: Completed infusion; IV Intake: kc6 100ml 11:47 Drug: Acetaminophen PO 1000 mg Route: PO; kc6 13:01 Follow up: Response: No adverse reaction; Temperature is decreased kc6 12:53 Drug: Piperacillin-Tazobactam IVPB 4.5 grams Route: IVPB; Infused Over: 60 mins; Site: kc6 right antecubital; 13:49 Follow up: Response: No adverse reaction; IV Status: Completed infusion; IV Intake: ll1 100ml 13:49 Drug: vancoMYCIN IVPB 1.5 grams Route: IVPB; Rate: calculated rate; Site: right ll1 antecubital; 14:29 Follow up: Response: No adverse reaction; IV Status: Infusion continued upon admission; kc6 IV Intake: 250ml Disposition Summary: 12/08/22 11:41 Hospitalization Ordered Hospitalization Status: Inpatient Admission sd2 Provider: Emigdio Medrano [facility] (Inpatient) sd2 Condition: Stable sd2 Problem: new sd2 Symptoms: are unchanged sd2 Bed/Room Type: Standard mi2 Room Assignment: 401(12/08/22 13:17) kj1 Diagnosis - Sepsis, unspecified organism sd2 - Vomiting, unspecified sd2 Forms: - Medication Reconciliation Form sd2 - SBAR form sd2 Signatures: Dispatcher [employer] EDME Karen Duncan kj1 Andrew Delgadillo RN RN ll1 Estelle Kirk RN RN [email or web address] Alma Rosa Lyons MD MD sd2 Nuris Brody RN RN kc6 Corrections: (The following items were deleted from the chart) 07:42 07:32 Constitutional: This is a well developed, well nourished patient who is awake, sd2 alert, and in no acute distress. Head/Face: Normocephalic, atraumatic. Eyes: EOMI, normal conjunctiva bilaterally Chest/axilla: Normal chest wall appearance and motion. Nontender with no deformity. Cardiovascular: Tachycardic rate and regular rhythm with a normal S1 and S2. No gallops, murmurs, or rubs. 2+ distal pulses. Respiratory: Lungs have equal breath sounds bilaterally, clear to auscultation and percussion. No rales, rhonchi or wheezes noted. No increased work of breathing, no retractions or nasal flaring. Abdomen/GI: Soft, non-tender, with normal bowel sounds. No guarding or rebound. No evidence of tenderness throughout. Back: No spinal tenderness. No costovertebral tenderness. Full range of motion. Skin: Warm, dry with normal turgor. Normal color with no rashes, no lesions, and no evidence of cellulitis. MS/ Extremity: Pulses equal, no cyanosis. Neurovascular intact. Full, normal range of motion. Ambulatory without difficulty. Psych: Awake, alert, with orientation to person, place and time. Behavior, mood, and affect are within normal limits. sd2 13:17 11:41 sd2 kj1
[2022-12-08] MEDS ORDERED: ACETAMINOPHEN 500 MG TAB ONE ×2 (11:54→14:03)
[2022-12-08] MEDS ORDERED: ONDANSETRON 4 MG/2 ML VIAL IV PRN (12:15)
--- NOTE | 2022-12-08 12:41 | RAD REPORT ---
EXAM DESCRIPTION: CT - [id number] - 12/08/2022 12:31 pm CLINICAL HISTORY: Trauma, head and neck injury. Dizziness, weakness COMPARISON: Abdomen Pelvis W Contrast dated 12/08/2022; Head Brain Wo Cont dated 10/14/2022 TECHNIQUE: Axial 5 mm thick images of the head were obtained. Axial 2 mm thick images of the cervical spine were obtained with sagittal and coronal reconstruction images generated and reviewed. All CT scans are performed using dose optimization technique as appropriate and may include automated exposure control or mA/KV adjustment according to patient size. FINDINGS: CT HEAD WITHOUT CONTRAST: No acute hemorrhage, hydrocephalus or extra-axial collection is identified.Mild generalized brain atr ophy is present with mild periventricular and deep white matter chronic microvascular ischemic change s.No areas of brain edema or midline shift. The paranasal sinuses and mastoids are clear.The calvarium is intact. CT CERVICAL SPINE WITHOUT CONTRAST: No fracture or subluxation.No prevertebral soft tissues swelling is identified. Carotid atheroscleros is. IMPRESSION: No acute intracranial or cervical spine findings.
--- NOTE | 2022-12-08 12:45 | P.HP ---
Certification for Inpatient Patient admitted to: Observation With expected LOS: <2 Midnights Patient will require the following post-hospital care: None Practitioner: I am a practitioner with admitting privileges, knowledge of patient current condition, hospital course, and medical plan of care. Services: Services provided to patient in accordance with Admission requirements found in Title 42 Section 412.3 of the Code of Federal Regulations Patient History Date of Service: 12/08/22 Reason for admission: fever History of Present Illness: 82 male with past medical history of aortic valve stenosis, diabetes mellitus, Hypercholesterolemia, restless leg syndrome presents to the Emergency room for generalized weakness. is at bedside is primary historian reports her had a fever at 0400, nausea, and vomited x 1 today. Reports generalized weakness, unable to stand today. He reports associated dizziness and light headed when standing occasionally. He denies focal deficits, no reported slurred speech, numbness. He reports CAB x 2 vessel at [place] 8 weeks ago. He denies chest pain, shortness of breath, edema, or productive cough. ED course Lab evaluation WBC normal, early left sift, BC, UA ordered, platelets 130, neutrophils procalcitonin 0.38 high, 92.6, CMP glucose 197, GFR 56 otherwise unremarkable, UA 4+ glucose, 1+ ketones CT of the head No acute intracranial or cervical spine finding CT of the abdomen pelvis Small renal cysts. Two duodenal diverticula. Largest measures 6.6 centimeters The prostate gland is mildly to moderately enlarged. No evidence of colonic diverticulitis Small left inguinal hernia Calcifications celiac artery results in a high-grade stenosis. Spondylolysis L5 IMPRESSION: No acute abnormality is displayed Chest x-ray FINDINGS: The lungs appear clear of acute infiltrate. The heart is mildly enlarged. Post surgical changes involve chest IMPRESSION: No acute abnormalities displayed Allergies No Known Allergies Allergy (Verified 09/23/22 11:06) Home Medications: Atorvastatin Calcium [Lipitor] 80 mg PO BEDTIME 09/23/22 Empagliflozin [Jardiance] 25 mg PO DAILY 09/23/22 Metformin HCl 500 mg PO BID 09/23/22 lisinopriL [Lisinopril] 10 mg PO DAILY 09/23/22 Alogliptin Benzoate [Alogliptin] 25 mg PO DAILY 10/15/22 Amiodarone HCl [Pacerone] 200 mg PO TID 05/27/23 Aspirin [Aspirin EC 81 MG] 81 mg PO DAILY 10/15/22 Clopidogrel Bisulfate [Plavix] 75 mg PO DAILY 10/15/22 Metoprolol Tartrate 25 mg PO BID 10/15/22 Zinc Sulfate [Zinc Sulfate*] 220 mg PO DAILY 10/15/22 - Past Medical/Surgical History Diabetic: Yes -: Type II Diabetes Mellitus -: Hypertension -: Hyperlipidemia -: Restless Leg Syndrome -: CAD -: Aortic valve stenosis-status post repair -: Cholecystectomy -: CABG -: Aortic valve replacement Psychosocial/ Personal History: Patient lives at home with his - Family History Mother -: Hypertension Brother -: Other (see notes) Notes: hypotension Father -: Heart disease - Social History Alcohol use: Yes CD- Drugs: No Caffeine use: Yes Review of Systems 10-point ROS is otherwise unremarkable Physical Examination - Physical Exam General: Alert, In no apparent distress, Oriented x3 HEENT: Atraumatic, Normocephalic, PERRLA Neck: Supple, 2+ carotid pulse no bruit, JVD not distended Respiratory: Clear to auscultation bilaterally, Normal air movement Cardiovascular: No edema, Normal pulses, Regular rate/rhythm Capillary refill: <2 Seconds Gastrointestinal: Normal bowel sounds, Soft and benign, Non-distended Musculoskeletal: No clubbing, No swelling Integumentary: No rashes, No breakdown Neurological: Normal speech, Normal strength at 5/5 x4 extr, Cranial nerves 3-12 intact - Studies Laboratory Data (last 24 hrs) 12/08/22 07:52: PT 13.2 H, INR 1.20, APTT 31.6 12/08/22 07:52: Sodium 136, Potassium 3.7, BUN 17, Creatinine 1.29, Glucose 197 H, Total Bilirubin 0.7, AST 24, ALT 38, Alkaline Phosphatase 100 12/08/22 07:52: WBC 10.40, Hgb 14.7, Hct 44.3, Plt Count 130 L Microbiology Data (last 24 hrs): 12/08/22 07:46 Nasopharnyx Influenza Type A Antigen Screen - Final 12/08/22 07:46 Nasopharnyx Influenza Type B Antigen Screen - Final Assessment and Plan - Plan Assessment/Plan sepsis without organ dysfunction, Fever, ukn source, early left shift Generalized weakness Type II Diabetes Mellitus-uncontrolled Hypertension CAD recent CAB x 2 vessels left inguinal hernia Calcifications celiac artery results in a high-grade stenosis duodenal diverticula enlarged prostate Spondylolysis L5 IMPRESSION: No acute abnormality is displayed Hypertension Hyperlipidemia Restless Leg Syndrome DVT proplx Assessment/Plan sepsis without organ dysfunction, Fever, ukn source, early left shift WBC normal, early left sift, BC, UA ordered, neutrophils procalcitonin 0.38 high, 92.6 CT of the abdomen pelvis Small renal cysts. Two duodenal diverticula. Largest measures 6.6 centimeters The prostate gland is mildly to moderately enlarged. No evidence of colonic diverticulitis Generalized weakness CT of the head No acute intracranial or cervical spine finding PT eval, fall precautions Type II Diabetes Mellitus-uncontrolled acc ac hs, SSI, A1c in am CAD recent CAB x 2 vessels resume home meds, tele Diet cardiac Full Code DVT Lovenox - Advance Directives Does patient have a Living Will: Yes Does patient have a Durable POA for Healthcare: Yes
[2022-12-08] MEDS ORDERED: NA CHLORIDE 0.9% 250 ML ONE (12:54)
[2022-12-08] MEDS ORDERED: VANCOMYCIN 1 GM/VIAL ONE (12:54)
[2022-12-08] MEDS ORDERED: VANCOMYCIN 500 MG/VIAL ONE (12:54)
[2022-12-08] MEDS ORDERED: PIPERACIL/TAZO 4.5 GM VIAL IV ONE (12:54)
[2022-12-08] MEDS ORDERED: NA CHLORIDE 0.9% 100 ML ONE (12:54)
[2022-12-08] MEDS: ACETAMINOPHEN 500 MG TAB PO PRN (13:55)
[2022-12-08 14:26] VITALS: BMI 26.7
[2022-12-08 16:18] LABS: Urine Bacteria None Seen /HPF (<20); Urine Bilirubin NEGATIVE (Negative); Urine Blood 1+ (Negative); Urine Clarity Clear (Clear); Urine Color Light-Yellow (Yellow); Urine Glucose 4+ (Over) (Negative); Urine Protein TRACE (Negative); Urine RBC <5 /HPF (None Seen); Urine Urobilinogen Normal (Normal)
[2022-12-08 16:25] LABS: Specific Gravity > 1.030 (1.005-1.030)
[2022-12-08] MEDS: INSULIN -REGULAR HUMAN 50 UNIT/0.5 ML ML SQ SCH ×2 (16:30→21:00)
[2022-12-09] MEDS: ACETAMINOPHEN 500 MG TAB PO PRN ×2 (00:37→23:27)
[2022-12-09 04:10] LABS: Absolute Lymphocytes (CBC) 0.7 K/uL (0.7-4.9); Hematocrit 42.2 % (39.6-49.0); Lymphocytes % 5.9 % (15.3-44.8); MCV 89.6 fL (80-100); MPV 9.4 fL (7.6-11.3); RBC Red Blood Cell Count 4.71 M/uL (4.33-5.43)
[2022-12-09 04:32] LABS: Magnesium 1.6 mg/dL (1.6-2.4); Potassium 4.2 mEq/L (3.5-5.1)
[2022-12-09 04:57] LABS: Blood Morphology Comment NOT SEEN (NOT SEEN); Platelet Estimate ADEQ; White Blood Cell Scan OK (OK)
[2022-12-09] MEDS: INSULIN -REGULAR HUMAN 50 UNIT/0.5 ML ML SQ SCH ×4 (07:30→21:40)
[2022-12-09] MEDS: CEFTRIAXONE 1,000 MG in NA CHLORIDE 0.9% 50 ML IVPB SCH (08:46)
[2022-12-09] MEDS ORDERED: ENOXAPARIN 40 MG/0.4 ML SQ SCH (09:00)
[2022-12-09] MEDS ORDERED: FUROSEMIDE 40 MG/4 ML VIAL IV SCH (09:00)
[2022-12-09] MEDS ORDERED: NA CHLORIDE 0.9% 500 ML IV ONE (09:17)
[2022-12-09] MEDS ORDERED: MAGNESIUM SULFATE 1 gm IVPB 1 GM/100 ML BAG IV ONE (10:00)
--- NOTE | 2022-12-09 14:22 | ECHO ---
HEIGHT: 5 ft 8 in WEIGHT: 175 lb 15.92 oz DATE OF STUDY: 12/09/[address]: Nohemy Hoff SPINAL SURGEON-Vijay 2-DIMENSIONAL: YES M.MODE: YES DOPPLER: YES COLOR FLOW: YES TDS: NO PORTABLE: YES DEFINITY: NO BUBBLE STUDY: NO DIAGNOSIS: ELEVATED TROPONIN CARDIAC HISTORY: CATHERIZATION:YES SURGERY: YES PROSTHETIC VALVE: YES PACEMAKER: NO MEASUREMENTS (cm) DIASTOLIC (NORMALS) SYSTOLIC (NORMALS) IVSd 1.0 (0.6-1.2) LA Diam 2.8 (1.9-4.0) LVEF 36% LVIDd 4.2 (3.5-5.7) LVIDs 3.5 (2.0-3.5) %FS 17% LVPWd 1.1 (0.6-1.2) Ao Diam 2.8 (2.0-3.7) 2 DIMENSIONAL ASSESSMENT: RIGHT ATRIUM: NORMAL LEFT ATRIUM: NORMAL RIGHT VENTRICLE: NORMAL LEFT VENTRICLE: LVH TRICUSPID VALVE: MILD TR MITRAL VALVE: MILD MR PULMONIC VALVE: MILD PI AORTIC VALVE: MILD AI PERICARDIAL EFFUSION: TRACE AORTIC ROOT: NORMAL LEFT VENTRICULAR WALL MOTION: MODERATE GLOBAL HYPOKINESIS. DOPPLER/COLOR FLOW: SEE BELOW. COMMENTS: 1. MODERATELY DEPRESSED LEFT VENTRICULAR EJECTION FRACTION 35-40%. 2. ATRIAL FIBRILLATION. 3. MILD CONCENTRIC LEFT VENTRICULAR HYPERTROPHY. 4. MILD MITRAL, AORTIC, TRICUSPID AND PULMONARY REGURGITATION. TECHNOLOGIST: Megan PALOMO
[2022-12-09] MEDS ORDERED: VANCOMYCIN 1 GM in NA CHLORIDE 0.9% 250 ML IVPB SCH (14:35)
[2022-12-09] MEDS ORDERED: AMIODARONE HCL 150 MG in D5W 100 ML IV STA (14:42)
--- NOTE | 2022-12-09 14:47 | P.PN ---
Subjective Date of Service: 12/09/22 Chief Complaint: fever He is alert and oriented x 1 to self. Per his son at bedside, this is close to his mental baseline. 4/4 of his blood cultures have returned positive for gram- positive cocci in clusters. He denies any chest pain, palpitations, or shortness of breath. Review of Systems is unable to be obtained Physical Examination - Vital Signs Temperature: 99.0 F Blood Pressure: 96/61 Pulse: 112 Respirations: 16 Pulse Ox (%): 93 - Physical Exam General: In no apparent distress, Oriented x1 HEENT: Atraumatic, Sclerae nonicteric Neck: JVD not distended Respiratory: Clear to auscultation bilaterally, Diminished Cardiovascular: No edema, No gallops, No rubs, No murmurs, Irregular heart rate/rhythm Gastrointestinal: Normal bowel sounds, Soft and benign, Non-distended, No tenderness, No rebound, No guarding Musculoskeletal: No clubbing Integumentary: No rashes Neurological: Normal speech, Normal affect Assessment And Plan - Plan # Severe Sepsis likely secondary to Gram-Positive Bacteremia He meets SIRS criteria based on temperature > 100.9 F, HR > 90 bpm, and RR > 20 breaths/min, and the suspected source is bacteremia. Severe sepsis is suspected due to concern for tissue hypoperfusion/organ dysfunction based on platelet count < 100,000. 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 - Consulted Cardiology and spoke with Dr. Kent - recommendations appreciated - He believes depressed ejection fraction to be secondary to tachycardia- induced cardiomyopathy - Recommended starting amiodarone drip - Chest x-ray = "no acute abnormalities displayed." - Transthoracic echocardiogram = "1. moderately depressed left ventricular ejection fraction 35-40%. 2. atrial fibrillation. 3. mild concentric left ventricular hypertrophy. 4. mild mitral, aortic, tricuspid and pulmonary regurgitation." - Ordered heparin drip # Coronary Artery Disease s/p CABG x 2 # High Grade Celiac Artery stenosis # Hypertension # Hyperlipidemia - Continue home aspirin, atorvastatin - Hold home metoprolol, lisinopril given concern for sepsis # Type II Diabetes Mellitus - Hgb A1c = 6.5 % - Correction scale insulin - Hold home metformin, empagliflozin, alogliptin # Deconditioning - PT consult Emigdio Medrano M.D.
[2022-12-09] MEDS ORDERED: ENOXAPARIN 80 MG/0.8 ML SQ SCH (15:00)
[2022-12-09] MEDS ORDERED: AMIODARONE HCL 450 MG in D5W 241 ML IV SCH (15:00)
[2022-12-09] MEDS ORDERED: VANCOMYCIN 1.5 GM in NA CHLORIDE 0.9% 500 ML IVPB SCH (15:00)
[2022-12-09] MEDS: AMIODARONE HCL 900 MG in Dextrose 5%-Water 482 ML IV SCH ×2 (15:44→17:54)
[2022-12-09] MEDS ORDERED: HEPARIN 5000 UNIT/ML 1 ML VIAL IV PRN (16:34)
[2022-12-09 17:09] LABS: Protime INR 1.2
--- NOTE | 2022-12-09 17:23 | RAD REPORT ---
EXAM DESCRIPTION: CT - Thorax Wo Con CLINICAL HISTORY: Chest pain sepsis, gram + bacteremia COMPARISON: Chest For Pe Angio dated 10/14/2022; Abdomen Pelvis W Contrast dated 12/08/2022 FINDINGS: 9 mm noncalcified nodule posterior right upper lobe. 7 mm nodule in the left lung base. Bi basilar lung opacities are present likely atelectasis. Trace pleural effusions. No pneumothorax. No axillary, mediastinal or hilar adenopathy. Sternotomy wires. No concerning bony finding. There is a rounded lesion in the distal aspect of the stomach measuring a bout 4 cm. This is suspicious for a mass. All CT scans are performed using dose optimization technique as appropriate and may include automated exposure control or mA/KV adjustment according to patient size. IMPRESSION: There is likely a 4 cm mass in the distal aspect of the stomach.Recommend direct visuali zation with upper endoscopy. Nonspecific noncalcified pulmonary nodules noted. Cannot rule out metastatic disease. Mild atelectasis with trace pleural effusions and both lung bases.
[2022-12-09] MEDS: HEPARIN/D5W 25,000 UNIT/500 ML BAG IV SCH (17:57)
--- NOTE | 2022-12-09 20:03 | CON ---
Date of Consultation: 12/09/2022 Reason For Consultation: Elevated BNP. History Of Present Illness: This is an 82-year-old with advanced dementia, apparently had an open-he art surgery recently, likely a bypass surgery. He has a past medical history of aortic valve stenosi s, diabetes, dyslipidemia, restless legs syndrome, brought in because of generalized weakness and low -grade fever, nausea for 1 day. Upon evaluation, NT-proBNP was elevated, so I was consulted. [place] is very poor historian. Does not know why he is in the hospital, but he was in atrial fibrillation at the time I saw him. Past Medical History: Aortic valve disease, coronary artery disease, restless legs syndrome, hyperte nsion, diabetes, dyslipidemia. Past Surgical History: CABG and aortic valve replacement. Medications: Refer to reconciliation sheet for detailed list. Allergies: NO KNOWN DRUG ALLERGIES. Family History: No premature coronary artery disease or cancer. Social History: Does not smoke or drink. Does not use any drugs. Review of Systems: All systems reviewed and they were negative except what was mentioned in HPI. Physical Examination: Vital Signs: Reviewed. Head and Neck: Pupils are equal, reactive to light. Intact eye movements. No JVD. No cervical lym phadenopathy. Neck is supple. Thyroid is not enlarged. Lungs: Clear to auscultation bilaterally. No rhonchi, wheezing, or crackles. No accessory muscle u se. Heart: Irregularly irregular. No extra sounds. Abdomen: Soft, nontender. Bowel sounds positive. No organomegaly. No masses or hernia. No rigidi ty or rebound. Extremities: No edema, clubbing, or cyanosis. Intact pulses. Skin: No rash. Neurologic: Alert, awake, oriented x3. No acute focal deficits appreciated. Investigations: BUN 17, creatinine 1.37, and his hemoglobin is 14.1, and white blood count is 11.1. Assessment And Recommendations: 1.Atrial fibrillation and his ejection fraction is low, likely this is related to his recent surgery . I will start him on IV amiodarone load 150 mg over 10 minutes, then 1 mg/minute for 6 hours, then for 16 hours, and then switching to oral after that and if he continues to be in atrial fi brillation, we will plan for ANKUR-guided cardioversion, likely his low ejection fraction is due to agustin t. 2.Congestive heart failure, very low ejection fraction, likely atrial fibrillation induced. He is s tatus post coronary artery bypass graft and aortic valve replacement recently. We will plan for a TE E cardioversion as outlined above. Recommend to try to start him on a low dose of beta-johana and a lso discontinue IV Lasix, he is not overloaded, put him on oral Lasix instead at a much lower dose. SR/MODL Voice ID: [id number] Report ID: [id number]
[2022-12-09] MEDS: ATORVASTATIN 80 MG TAB PO SCH (21:39)
[2022-12-10 02:12] LABS: Absolute Lymphocytes (CBC) 1.2 K/uL (0.7-4.9); Lymphocytes % 10.4 % (15.3-44.8); MCV 88.8 fL (80-100); MPV 8.9 fL (7.6-11.3); RBC Red Blood Cell Count 4.73 M/uL (4.33-5.43)
[2022-12-10 02:33] LABS: Magnesium 2.1 mg/dL (1.6-2.4); Phosphorus 2.1 mg/dL (2.5-4.9); Potassium 3.6 mEq/L (3.5-5.1)
[2022-12-10] MEDS: INSULIN -REGULAR HUMAN 50 UNIT/0.5 ML ML SQ SCH ×4 (07:30→21:00)
[2022-12-10] MEDS: POTASS/SODIUM PHOSPHATE 1 PKT POWD.PACK PO SCH ×3 (08:45→09:08)
[2022-12-10] MEDS: ASPIRIN 81 MG CHEWABLE TABLET PO SCH (08:47)
[2022-12-10] MEDS: CEFTRIAXONE 1,000 MG in NA CHLORIDE 0.9% 50 ML IVPB SCH (08:48)
[2022-12-10] MEDS ORDERED: POTASSIUM CL SA 10 MEQ TAB PO ONE (09:00)
[2022-12-10] MEDS ORDERED: AMIODARONE HCL 900 MG in Dextrose 5%-Water 482 ML IV SCH (15:00)
[2022-12-10] MEDS: ACETAMINOPHEN 500 MG TAB PO PRN ×2 (16:46→20:26)
[2022-12-10] MEDS: HEPARIN/D5W 25,000 UNIT/500 ML BAG IV SCH (16:48)
--- NOTE | 2022-12-10 19:36 | P.PN ---
Subjective Date of Service: 12/10/22 Chief Complaint: fever He is alert and oriented x [address] He states that he feels generalized fatigue. His fever trend is improving with antibiotics. He denies any chest pain, palpitations, or shortness of breath. Review of Systems 10-point ROS is otherwise unremarkable General: Weakness (generalized) Physical Examination - Vital Signs Temperature: 99.0 F Blood Pressure: 106/69 Pulse: 95 Respirations: 16 Pulse Ox (%): 95 - Studies Laboratory Data (last 24 hrs) 12/10/22 02:04: APTT 61.2 H 12/10/22 02:04: Sodium 134 L, Potassium 3.6 D, BUN 21 H, Creatinine 1.19, Glucose 172 H, Phosphorus 2.1 L, Magnesium 2.1 12/10/22 02:04: WBC 11.20 H, Hgb 13.9, Hct 42.0, Plt Count 75 L 12/09/22 22:18: APTT 52.2 H Microbiology Data (last 24 hrs): 12/09/22 15:30 Blood - Blood Blood Culture Gram Stain - Final 12/09/22 15:30 Blood - Blood Anaerobic Blood Culture - Final 12/08/22 12:10 Blood - Blood Aerobic Blood Culture - Final Staph Aureus 12/08/22 12:10 Blood - Blood Blood Culture Gram Stain - Final 12/08/22 12:10 Blood - Blood Anaerobic Blood Culture - Final Staph Aureus 12/08/22 12:10 Blood - Blood Gram Stain - Final Assessment And Plan - Plan - Physical Exam General: In no apparent distress, Oriented x2 HEENT: Atraumatic, Sclerae nonicteric Neck: JVD not distended Respiratory: Clear to auscultation bilaterally, Diminished Cardiovascular: No edema, No murmurs, Irregular heart rate/rhythm Gastrointestinal: Normal bowel sounds, Soft, Non-distended, No tenderness Musculoskeletal: No clubbing Integumentary: No rashes Neurological: Normal speech, Normal affect # Severe Sepsis likely secondary to Methicillin-Sensitive Staphylococcus Aureus Bacteremia He meets SIRS criteria based on temperature > 100.9 F, HR > 90 bpm, and RR > 20 breaths/min, and the suspected source is bacteremia. Severe sepsis is suspected due to concern for tissue hypoperfusion/organ dysfunction based on platelet count < 100,000. 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 - Consulted Cardiology and spoke with Dr. Kent - recommendations appreciated - He believes depressed ejection fraction to be secondary to tachycardia- induced cardiomyopathy - Recommended starting amiodarone drip - Plan to transition to PO amiodarone today - Chest x-ray = "no acute abnormalities displayed." - Transthoracic echocardiogram = "1. moderately depressed left ventricular ejection fraction 35-40%. 2. atrial fibrillation. 3. mild concentric left ventricular hypertrophy. 4. mild mitral, aortic, tricuspid and pulmonary regurgitation." - Continue heparin drip # Distal Stomach Mass (4 cm) # Suspected Dementia # Noncalcified Pulmonary Nodules - Noted incidentally on CT chest - I had an extensive discussion with his son, Mr. Han (stated MPOA) regarding [id number] - He indicated that, in general, he does not believe that his father would want any aggressive measures; however, he would like to discuss with family and meet tomorrow to discuss it further. 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
[2022-12-10] MEDS: AMIODARONE HCL 200 MG TAB PO SCH (21:37)
[2022-12-10] MEDS: ATORVASTATIN 80 MG TAB PO SCH (21:38)
[2022-12-11] MEDS: MELATONIN 5 MG TABLET PO PRN ×2 (02:21→22:25)
[2022-12-11 02:29] LABS: Absolute Lymphocytes (CBC) 1.1 K/uL (0.7-4.9); Hematocrit 38.7 % (39.6-49.0); Lymphocytes % 14.6 % (15.3-44.8); MCV 88.3 fL (80-100); MPV 9.2 fL (7.6-11.3); RBC Red Blood Cell Count 4.39 M/uL (4.33-5.43)
[2022-12-11 02:42] LABS: Magnesium 1.9 mg/dL (1.6-2.4); Phosphorus 2.3 mg/dL (2.5-4.9)
[2022-12-11] MEDS: ACETAMINOPHEN 500 MG TAB PO PRN ×3 (05:26→22:24)
[2022-12-11] MEDS: AMIODARONE HCL 200 MG TAB PO SCH ×2 (08:29→22:09)
[2022-12-11] MEDS: ASPIRIN 81 MG CHEWABLE TABLET PO SCH (08:29)
[2022-12-11] MEDS: INSULIN -REGULAR HUMAN 50 UNIT/0.5 ML ML SQ SCH ×4 (08:30→21:00)
[2022-12-11] MEDS: CEFTRIAXONE 1,000 MG in NA CHLORIDE 0.9% 50 ML IVPB SCH (08:30)
[2022-12-11] MEDS: POTASS/SODIUM PHOSPHATE 1 PKT POWD.PACK PO SCH ×3 (08:37→09:51)
--- NOTE | 2022-12-11 13:31 | P.PN ---
Subjective Date of Service: 12/11/22 Chief Complaint: fever He is alert and oriented x2 to person and place. Extensive goals of care discussion was held with him, his son, his , and his [id number] present. They stated that, prior to making any major decisions regarding the stomach mass, they would like for this to get biopsied to confirm a diagnosis. I spoke with Dr. Lofton (Gastroenterology), who advised that he be treated for bacteremia prior to this procedure, which would likely occur in about 2-3 weeks as an outpatient. His family verbalized understanding and agreed with this plan. Review of Systems 10-point ROS is otherwise unremarkable General: Weakness (generalized) Neurological: Confusion Physical Examination - Vital Signs Temperature: 97.3 F Blood Pressure: 117/51 Pulse: 75 Respirations: 16 Pulse Ox (%): 99 - Studies Microbiology Data (last 24 hrs): 12/09/22 15:30 Blood - Blood Blood Culture Gram Stain - Final 12/09/22 15:30 Blood - Blood Anaerobic Blood Culture - Final Assessment And Plan - Plan - Physical Exam General: In no apparent distress, Oriented x2 HEENT: Atraumatic, Sclerae nonicteric Neck: JVD not distended Respiratory: Clear to auscultation bilaterally, Diminished Cardiovascular: No edema, No murmurs, Regular heart rate/rhythm Gastrointestinal: Normal bowel sounds, Soft, Non-distended, No tenderness Musculoskeletal: No clubbing Integumentary: No rashes Neurological: Normal speech, Normal affect # Severe Sepsis likely secondary to Methicillin-Sensitive Staphylococcus Aureus Bacteremia He meets SIRS criteria based on temperature > 100.9 F, HR > 90 bpm, and RR > 20 breaths/min, and the suspected source is bacteremia. Severe sepsis is suspected due to concern for tissue hypoperfusion/organ dysfunction based on platelet count < 100,000. 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 - Consulted Cardiology and spoke with Dr. Kent - recommendations appreciated - He believes depressed ejection fraction to be secondary to tachycardia- induced cardiomyopathy - Continue amiodarone - Chest x-ray = "no acute abnormalities displayed." - Transthoracic echocardiogram = "1. moderately depressed left ventricular ejection fraction 35-40%. 2. atrial fibrillation. 3. mild concentric left ventricular hypertrophy. 4. mild mitral, aortic, tricuspid and pulmonary regurgitation." - Continue heparin drip # Distal Stomach Mass (4 cm) # Suspected Dementia # Noncalcified Pulmonary Nodules - Noted incidentally on CT chest - I had an extensive discussion with his son, Mr. Han (stated MPOA), his (Ms. Tapia), and his [id number] regarding [id number] - They stated that they would like the get the stomach mass biopsied first. Spoke with Dr. Lofton, who stated that biopsies should be done in about 2-3 weeks after bacteremia treatment has been completed # Coronary Artery Disease s/p CABG x 2 # High Grade Celiac Artery stenosis # Hypertension # Hyperlipidemia - Continue home aspirin, atorvastatin - Hold home metoprolol, lisinopril given concern for sepsis # Type II Diabetes Mellitus - Hgb A1c = 6.5 % - Correction scale insulin - Hold home metformin, empagliflozin, alogliptin # Deconditioning - PT consult Emigdio Medrano M.D.
[2022-12-11] MEDS: HEPARIN/D5W 25,000 UNIT/500 ML BAG IV SCH (18:05)
--- NOTE | 2022-12-11 20:46 | P.PN ---
Date of Service: 12/12/22 Subjective: Patient is clinically doing well. Patient denies any new complaints. Last set of blood cultures are negative. Cardiology is recommending repeat echocardiogram. If this looks good will arrange for outpatient IV antibiotics and discharged with outpatient follow-up. ROS: 10 point ROS as noted above, otherwise negative Vitals Reviewed Physical Exam: Gen: Alert,orientedx 3, NAD CV: regular rate & rhythm, no edema Pulm: clear bilaterally Abd: soft, non-tender, non-distended MSK: no joint tenderness Neuro: no focal deficits Problem List: 1. Severe Sepsis likely secondary to Methicillin-Sensitive Staphylococcus Aureus Bacteremia 2. Paroxysmal Atrial Fibrillation with Rapid Ventricular Response 3. 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 Distal Stomach Mass (4 cm) 5. Suspected Dementia 6. Noncalcified Pulmonary Nodules 7. Coronary Artery Disease s/p CABG x 2 8. High Grade Celiac Artery stenosis 9. Hypertension 10. Hyperlipidemia 11. Type II Diabetes Mellitus 12. Deconditioning PLAN 1. Continue with IV antibiotics; Ancef 2 g IV piggyback q.8 hours 2. Repeat echocardiogram 3. Continue with medication for rate control and start oral anticoagulation 4. Outpatient EGD 5. Continue with strict blood pressure and blood sugar control 6. Continue with physical therapy 7. Continue with gentle diuretics as patient with EF of 30-40%; may need to add Entresto to the regimen if blood pressure will tolerate 8. Continue with anti-platelet and statin therapy for CAD continue with rate control 9. Outpatient biopsy per Dr. BRENNAN in 2-3 weeks 10. Gi DVT prophylaxis
[2022-12-11] MEDS: ATORVASTATIN 80 MG TAB PO SCH (22:09)
[2022-12-12] MEDS: ACETAMINOPHEN 500 MG TAB PO PRN ×4 (02:55→21:36)
[2022-12-12 07:31] LABS: Magnesium 1.8 mg/dL (1.6-2.4); Phosphorus 2.8 mg/dL (2.5-4.9); Potassium 3.7 mEq/L (3.5-5.1)
[2022-12-12] MEDS ORDERED: MAGNESIUM OXIDE 400 MG TAB PO ONE (08:00)
[2022-12-12] MEDS ORDERED: POTASSIUM CL SA 10 MEQ TAB PO ONE (08:00)
[2022-12-12] MEDS: ASPIRIN 81 MG CHEWABLE TABLET PO SCH (08:46)
[2022-12-12] MEDS: AMIODARONE HCL 200 MG TAB PO SCH ×2 (08:46→20:30)
[2022-12-12] MEDS: CEFTRIAXONE 1,000 MG in NA CHLORIDE 0.9% 50 ML IVPB SCH (08:47)
[2022-12-12] MEDS: INSULIN -REGULAR HUMAN 50 UNIT/0.5 ML ML SQ SCH ×4 (08:47→20:30)
[2022-12-12] MEDS: CEFAZOLIN SODIUM 2 GM in NA CHLORIDE 0.9% 100 ML IVPB SCH ×2 (12:46→20:31)
--- NOTE | 2022-12-12 16:10 | P.CNS ---
Date of Consult: 12/12/22 Reason for Consult: bacteremia Chief Complaint: fever History of Present Illness: Patient is an 82 yo male with a history of aortic valve stenosis s/p valve replacement and GABGx2 (2 months ago), diabetes mellitus and hyperlipidemia who presented to the ED with complaints of generalized weakness, nausea and fevers. Blood cultures positive for staph aureus and ID was consulted. Allergies No Known Allergies Allergy (Verified 09/23/22 11:06) Home medications list reviewed: Yes Home Medications: Atorvastatin Calcium [Lipitor] 80 mg PO BEDTIME 09/23/22 Empagliflozin [Jardiance] 25 mg PO DAILY 09/23/22 Metformin HCl 500 mg PO BID 09/23/22 Alogliptin Benzoate [Alogliptin] 25 mg PO DAILY 10/15/22 Cranberry Conc/C/Bacill Coag [Cranberry Tablet] 1 tab PO DAILY 12/09/22 Mecobalamin [B12 Active] 1 tab PO DAILY 12/09/22 Zinc Gluconate [Zinc] 1 tab PO DAILY 12/09/22 - Past Medical/Surgical History Diabetic: Yes -: Type II Diabetes Mellitus -: Hypertension -: Hyperlipidemia -: Restless Leg Syndrome -: CAD -: Aortic valve stenosis-status post repair -: Cholecystectomy -: CABG -: Aortic valve replacement Psychosocial/ Personal History: Patient lives at home with his - Family History Mother Medical History: Hypertension Brother Medical History: Other (see notes) Notes: hypotension Father Medical History: Heart disease - Social History Alcohol use: Yes CD- Drugs: No Caffeine use: Yes Place of Residence: Home Review of Systems 10-point ROS is otherwise unremarkable General: Weakness Physical Examination Temp Pulse Resp BP Pulse Ox 97.2 F 74 16 113/64 99 12/12/22 12:00 12/12/22 12:00 12/12/22 12:00 12/12/22 12:00 12/12/22 12:00 General: Alert, In no apparent distress, Oriented x3 HEENT: Atraumatic, Normocephalic Neck: Supple, JVD not distended Respiratory: Clear to auscultation bilaterally, Normal air movement Cardiovascular: No edema, Normal pulses Gastrointestinal: Normal bowel sounds, Soft and benign, Non-distended Musculoskeletal: No clubbing, No swelling Integumentary: No rashes, No breakdown Neurological: Normal speech, Normal tone, Normal affect Laboratory Data - Reviewed Microbiology Data - Reviewed Imagings Data: - CT Chest 12/09: "There is likely a 4 cm mass in the distal aspect of the stomach.Recommend direct visualization with upper endoscopy. Nonspecific noncalcified pulmonary nodules noted. Cannot rule out metastatic disease. Mild atelectasis with trace pleural effusions and both lung bases." - CT Abdomen pelvis 12/08: "No acute abnormality is displayed." Conclusions/Impression: Problem List Diabetes Mellitus Type II CAD s/p CABG (2 months ago) Atrial Fibrillation Hypertension Hyperlipidemia Sepsis MSSA Bacteremia MSSA Bacteremia Sepsis - Blood cultures 12/08: Staphylococcus aureus in 4 of 4 bottles - Repeat blood cultures 12.09: staph aureus in 1 of 3 bottles - Repeat blood cultures 12/10: No growth to date - Transthoracic Echocardiogram 12/09:"1. MODERATELY DEPRESSED LEFT VENTRICULAR EJECTION FRACTION 35-40%. 2. ATRIAL FIBRILLATION. 3. MILD CONCENTRIC LEFT VENTRICULAR HYPERTROPHY. 4. MILD MITRAL, AORTIC, TRICUSPID AND PULMONARY REGURGITATION." - Of note, patient reports recent CAB x2 and valve replacement 2 months ago - Rocephin (12/09-12/12) switched to Cefazolin (12/12-) Afebrile. Leukocytosis resolved. Recommendations - Switched antibiotic to Cefazolin 12/12. Continue for 2 at least 2 weeks duration. - We recommend obtaining a ANKUR to eval for any vegetation/rule out endocarditis. TTE on 12/09 without any comments of vegetation. - Strict blood glucose control - Cardiology following ID will follow up and monitor patient closely. Case discussed with Adrianne Vines
[2022-12-12] MEDS: HEPARIN/D5W 25,000 UNIT/500 ML BAG IV SCH (17:44)
[2022-12-12] MEDS: ATORVASTATIN 80 MG TAB PO SCH (20:30)
[2022-12-12] MEDS: MELATONIN 5 MG TABLET PO PRN (21:37)
[2022-12-13] MEDS: CEFAZOLIN SODIUM 2 GM in NA CHLORIDE 0.9% 100 ML IVPB SCH ×3 (04:06→19:52)
--- NOTE | 2022-12-13 05:32 | P.PN ---
Date of Service: 12/13/22 Subjective: Last set of blood cultures are negative. Cardiology is recommending repeat echocardiogram. If this looks good will arrange for outpatient IV antibiotics and discharged with outpatient follow-up. ROS: 10 point ROS as noted above, otherwise negative Vitals Reviewed Physical Exam: Gen: Alert,orientedx 3, NAD CV: regular rate & rhythm, no edema Pulm: clear bilaterally Abd: soft, non-tender, non-distended MSK: no joint tenderness Neuro: no focal deficits Problem List: 1. Severe Sepsis likely secondary to Methicillin-Sensitive Staphylococcus Aureus Bacteremia 2. Paroxysmal Atrial Fibrillation with Rapid Ventricular Response 3. 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 Distal Stomach Mass (4 cm) 5. Suspected Dementia 6. Noncalcified Pulmonary Nodules 7. Coronary Artery Disease s/p CABG x 2 8. High Grade Celiac Artery stenosis 9. Hypertension 10. Hyperlipidemia 11. Type II Diabetes Mellitus 12. Deconditioning PLAN 1. Continue with IV antibiotics; Ancef 2 g IV piggyback q.8 hours 2. Repeat echocardiogram 3. Continue with medication for rate control and start oral anticoagulation 4. Outpatient EGD 5. Continue with strict blood pressure and blood sugar control 6. Continue with physical therapy 7. Continue with gentle diuretics as patient with EF of 30-40%; may need to add Entresto to the regimen if blood pressure will tolerate 8. Continue with anti-platelet and statin therapy for CAD continue with rate control 9. Outpatient biopsy per Dr. BRENNAN in 2-3 weeks 10. Gi DVT prophylaxis
--- NOTE | 2022-12-13 06:53 | ECHO ---
HEIGHT: 5 ft 8 in WEIGHT: 175 lb 15.92 oz DATE OF STUDY: 12/12/[address]: Emigdio Medrano MD 2-DIMENSIONAL: YES M.MODE: YES DOPPLER: NO COLOR FLOW: NO TDS: PORTABLE: YES DEFINITY: BUBBLE STUDY: DIAGNOSIS: FOLLOW UP EVALUATION FOR ENDOCARDITIS CARDIAC HISTORY: CATHERIZATION: YES SURGERY: YES PROSTHETIC VALVE: NO PACEMAKER: NO MEASUREMENTS (cm) DIASTOLIC (NORMALS) SYSTOLIC (NORMALS) IVSd 1.0 (0.6-1.2) LA Diam 3.1 (1.9-4.0) LVEF 46% LVIDd 4.2 (3.5-5.7) LVIDs 3.3 (2.0-3.5) %FS 22% LVPWd 1.1 (0.6-1.2) Ao Diam 2.7 (2.0-3.7) 2 DIMENSIONAL ASSESSMENT: RIGHT ATRIUM: LEFT ATRIUM: RIGHT VENTRICLE: LEFT VENTRICLE: TRICUSPID VALVE: MITRAL VALVE: PULMONIC VALVE: AORTIC VALVE: PERICARDIAL EFFUSION: AORTIC ROOT: LEFT VENTRICULAR WALL MOTION: DOPPLER/COLOR FLOW: COMMENTS: 1. THIS IS A FOCUSED ECHOCARDIOGRAM 2. NO CLEAR VEGETATION IS SEEN. IF CLINICALLY INDICATED RECOMMEND TRANSESOPHAGEAL ECHOCARDIOGRAM. TECHNOLOGIST: CHELSEA MONTA[place]
[2022-12-13 07:06] LABS: Absolute Lymphocytes (CBC) 1.2 K/uL (0.7-4.9); Hematocrit 35.6 % (39.6-49.0); Lymphocytes % 15.3 % (15.3-44.8); MCV 88.9 fL (80-100); MPV 8.8 fL (7.6-11.3)
[2022-12-13 07:19] LABS: Magnesium 1.8 mg/dL (1.6-2.4); Phosphorus 2.8 mg/dL (2.5-4.9)
[2022-12-13] MEDS: INSULIN -REGULAR HUMAN 50 UNIT/0.5 ML ML SQ SCH ×4 (08:50→19:46)
[2022-12-13] MEDS: ASPIRIN 81 MG CHEWABLE TABLET PO SCH (08:52)
[2022-12-13] MEDS: AMIODARONE HCL 200 MG TAB PO SCH ×2 (08:52→19:47)
[2022-12-13] MEDS: Mupirocin NASAL 2 APPL/1 GM TUBE NAS SCH ×2 (08:52→19:52)
--- NOTE | 2022-12-13 09:35 | P.PN ---
Date of Service: 12/13/22 Chief Complaint: fever, generalized weakness Subjective: Denies any new or worsening complaints. No acute events reported overnight. at bedside. Physical Examination Temp Pulse Resp BP Pulse Ox 97.8 F 66 20 114/59 L 93 12/13/22 08:00 12/13/22 08:00 12/13/22 08:00 12/13/22 08:00 12/13/22 08:00 General: Alert, In no apparent distress, Oriented x3 HEENT: Atraumatic, Normocephalic Neck: Supple, JVD not distended Respiratory: Clear to auscultation bilaterally, Normal air movement Cardiovascular: No edema, Normal pulses Gastrointestinal: Normal bowel sounds, Soft and benign, Non-distended Musculoskeletal: No clubbing, No swelling Integumentary: No rashes, No breakdown Neurological: Normal speech, Normal tone, Normal affect Laboratory Data - Reviewed Microbiology Data - Reviewed Imagings Data: - CT Chest 12/09: "There is likely a 4 cm mass in the distal aspect of the stomach.Recommend direct visualization with upper endoscopy. Nonspecific noncalcified pulmonary nodules noted. Cannot rule out metastatic disease. Mild atelectasis with trace pleural effusions and both lung bases." - CT Abdomen pelvis 12/08: "No acute abnormality is displayed." Medications List: - Reviewed Assessment and Plan Problem List Diabetes Mellitus Type II CAD s/p CABG (2 months ago) Atrial Fibrillation Hypertension Hyperlipidemia Severe Sepsis, resolved Bacteremia MSSA Bacteremia Sepsis - Blood cultures 12/08: Staphylococcus aureus in 4 of 4 bottles - Repeat blood cultures 12.09: staph aureus in 1 of 3 bottles - Repeat blood cultures 12/10: No growth to date - Transthoracic Echocardiogram 12/09:"1. MODERATELY DEPRESSED LEFT VENTRICULAR EJECTION FRACTION 35-40%. 2. ATRIAL FIBRILLATION. 3. MILD CONCENTRIC LEFT VENTRICULAR HYPERTROPHY. 4. MILD MITRAL, AORTIC, TRICUSPID AND PULMONARY REGURGITATION." - Of note, patient reports recent CAB x2 and valve replacement 2 months ago - Rocephin (12/09-12/12) switched to Cefazolin on 12/12 Afebrile. Leukocytosis resolved. Recommendations - MSSA Bacteremia: On Cefazolin IV. Continue antibiotic therapy for at least 2 weeks (started on IV antibiotics 12/09) - Recommend obtaining a ANKUR to eval for any vegetation/rule out endocarditis. TTE on 12/09 without any comments of vegetation. - Cardiology following - Strict blood glucose control Case discussed with Teagan Vines. ID will continue to follow patient as needed.
[2022-12-13] MEDS: APIXABAN 5 MG TABLET PO SCH ×2 (14:33→19:47)
--- NOTE | 2022-12-13 15:06 | EKG ---
Test Date: 2022-12-09 Test Time: 14:13:47 Sizing Sprayer: OSMIN MEASUREMENT RESULTS: Intervals: Rate: 109 WY: 208 QRSD: 132 QT: 376 QTc: 506 [place]: P: 40 WY: 208 QRS: -54 T: 145 INTERPRETIVE STATEMENTS: Sinus tachycardia with premature supraventricular complexes Left axis deviation Left ventricular hypertrophy with QRS widening and repolarization abnormality Cannot rule out Inferior infarct (masked by fascicular block?), age undetermined Abnormal ECG Compared to ECG 12/08/2022 10:24:52 Left ventricular hypertrophy now present Early repolarization now present T-wave abnormality no longer present Possible ischemia no longer present Myocardial infarct finding still present Electronically Signed On 12-13-22 14:59:04 CDT by Jono Kent
--- NOTE | 2022-12-13 15:12 | EKG ---
Test Date: 2022-12-08 Test Time: 10:24:52 Ax Survey Worker: NASRA MEASUREMENT RESULTS: Intervals: Rate: 106 WY: 198 QRSD: 130 QT: 342 QTc: 454 [place]: P: 86 WY: 198 QRS: -70 T: 101 INTERPRETIVE STATEMENTS: Sinus tachycardia with premature atrial complexes Left axis deviation Nonspecific intraventricular block Inferior infarct, age undetermined T wave abnormality, consider lateral ischemia Abnormal ECG Compared to ECG 12/08/2022 07:35:16 Atrial premature complex(es) now present Myocardial infarct finding now present T-wave abnormality now present Possible ischemia now present Atrial fibrillation no longer present Ventricular premature complex(es) no longer present Left bundle-branch block no longer present Electronically Signed On 12-13-22 15:02:59 CDT by Jono Kent
--- NOTE | 2022-12-13 15:13 | EKG ---
Test Date: 2022-12-08 Test Time: 07:35:16 Urologist: NASRA MEASUREMENT RESULTS: Intervals: Rate: 105 [place]: QRSD: 124 QT: 340 QTc: 449 [place]: P: [place]: QRS: -61 T: 117 INTERPRETIVE STATEMENTS: Atrial fibrillation with rapid ventricular response with premature ventricular or aberrantly conducted complexes Left axis deviation Left bundle branch block Abnormal ECG Compared to ECG 10/14/2022 16:44:47 Ventricular premature complex(es) now present Left-axis deviation now present Left bundle-branch block now present Sinus rhythm no longer present First degree AV block no longer present Electronically Signed On 12-13-22 15:03:31 CDT by Jono Kent
[2022-12-13] MEDS: ACETAMINOPHEN 500 MG TAB PO PRN (16:49)
[2022-12-13] MEDS: HYDROCODONE/APAP 10/325 TAB PO PRN (19:46)
[2022-12-13] MEDS: MELATONIN 5 MG TABLET PO PRN (19:47)
[2022-12-13] MEDS: ATORVASTATIN 80 MG TAB PO SCH (19:48)
[2022-12-13] MEDS ORDERED: APIXABAN 5 MG TABLET PO SCH (21:00)
[2022-12-14] MEDS: CEFAZOLIN SODIUM 2 GM in NA CHLORIDE 0.9% 100 ML IVPB SCH ×3 (05:31→21:20)
[2022-12-14 07:47] LABS: Absolute Lymphocytes (CBC) 1.2 K/uL (0.7-4.9); Hematocrit 35.7 % (39.6-49.0); MCV 88.4 fL (80-100); MPV 8.3 fL (7.6-11.3); RBC Red Blood Cell Count 4.04 M/uL (4.33-5.43)
[2022-12-14 08:04] LABS: Albumin 2.7 g/dL (3.4-5.0); Bilirubin Total 0.4 mg/dL (0.2-1.0); Magnesium 1.7 mg/dL (1.6-2.4); Potassium 4.1 mEq/L (3.5-5.1); Protein, Total 6.2 g/dL (6.4-8.2)
[2022-12-14] MEDS ORDERED: MAGNESIUM SULFATE 1 gm IVPB 1 GM/100 ML BAG IV ONE (08:18)
[2022-12-14] MEDS: ACETAMINOPHEN 500 MG TAB PO PRN ×2 (08:41→16:27)
[2022-12-14] MEDS: APIXABAN 5 MG TABLET PO SCH ×2 (08:41→21:18)
[2022-12-14] MEDS: Mupirocin NASAL 2 APPL/1 GM TUBE NAS SCH ×2 (08:42→21:18)
[2022-12-14] MEDS: ASPIRIN 81 MG CHEWABLE TABLET PO SCH (08:42)
[2022-12-14] MEDS: AMIODARONE HCL 200 MG TAB PO SCH ×2 (08:42→21:18)
[2022-12-14] MEDS: INSULIN -REGULAR HUMAN 50 UNIT/0.5 ML ML SQ SCH ×4 (08:42→21:19)
--- NOTE | 2022-12-14 10:00 | P.PN ---
Date of Service: 12/14/22 Chief Complaint: fever, generalized weakness Subjective: Patient in bed, awake and oriented x3. Denies any new or worsening complaints at this time. No acute events reported overnight. Physical Examination Temp Pulse Resp BP Pulse Ox 99.4 F 69 18 116/58 L 94 12/14/22 08:00 12/14/22 08:00 12/14/22 08:00 12/14/22 08:00 12/14/22 08:00 General: Alert, In no apparent distress, Oriented x3 HEENT: Atraumatic, Normocephalic Neck: Supple, JVD not distended Respiratory: Clear to auscultation bilaterally, Nonlabored respirations on room air. Cardiovascular: No edema, Normal pulses Gastrointestinal: Normal bowel sounds, Soft and benign, Non-distended Musculoskeletal: No clubbing, No swelling Integumentary: No rashes, No breakdown Neurological: Normal speech, Normal tone, Normal affect Laboratory Data - Reviewed Microbiology Data - Reviewed Imagings Data: - CT Chest 12/09: "There is likely a 4 cm mass in the distal aspect of the stomach.Recommend direct visualization with upper endoscopy. Nonspecific noncalcified pulmonary nodules noted. Cannot rule out metastatic disease. Mild atelectasis with trace pleural effusions and both lung bases." - CT Abdomen pelvis 12/08: "No acute abnormality is displayed." Medications List: - Reviewed Assessment and Plan Problem List Diabetes Mellitus Type II CAD s/p CABG (2 months ago) Atrial Fibrillation Hypertension Hyperlipidemia Severe Sepsis, resolved Bacteremia Sepsis MSSA Bacteremia, source unclear Concern for possible endocarditis - Blood cultures 12/08: Staphylococcus aureus in 4 of 4 bottles - Repeat blood cultures 12.09: staph aureus in 1 of 3 bottles - Repeat blood cultures 12/10: No growth to date - Transthoracic Echocardiogram 12/09:"1. MODERATELY DEPRESSED LEFT VENTRICULAR EJECTION FRACTION 35-40%. 2. ATRIAL FIBRILLATION. 3. MILD CONCENTRIC LEFT VENTRICULAR HYPERTROPHY. 4. MILD MITRAL, AORTIC, TRICUSPID AND PULMONARY REGURGITATION." - Of note, patient reports recent CAB x2 and valve replacement 2 months ago - Previously on Rocephin (12/09-12/12) - Currently on Cefazolin IV (12/12-) - Focused Transthoracic Echo 12/13: "No clear vegetation is seen. If clinically indicated recommend transesophageal echocardiogram" 24 hour Tmax 99.4 F Leukocytosis resolved Recommendations - MSSA Bacteremia: On Cefazolin IV. Continue antibiotic therapy for at least 2 weeks (started on IV antibiotics 12/09). - Concern for possible endocarditis. Repeat TTE 12/13 no clear vegetation seen. - Recommend obtaining a ANKUR - Strict blood glucose control Case discussed with Adrianne Vines
--- NOTE | 2022-12-14 19:06 | PN ---
Date of Progress Note: 12/12/2022 Subjective: Seen by bedside. No fever. Doing well. Review of Systems: No chest pain or shortness of breath. He is doing physical therapy and doing gradually better. Investigations: Vital Signs: Reviewed. Head and Neck: Pupils are equal, reactive to light. Intact eye movements. No JVD. No cervical lym phadenopathy. Neck is supple. Thyroid is not enlarged. Lungs: Clear to auscultation bilaterally. No rhonchi, wheezing, or crackles. No accessory muscle u se. Heart: Regular rate and rhythm. No extra sounds. Abdomen: Soft, nontender. Bowel sounds positive. No organomegaly. No masses or hernia. No rigidi ty or rebound. Extremities: No edema, clubbing, or cyanosis. Intact pulses. Skin: No rash. Neurologic: Alert, awake, oriented x3. No acute focal deficits appreciated. Investigations: Recent blood cultures are negative. Assessment And Recommendations: 1.Bacteremia. On echo, there are no signs of endocarditis. Repeat focused echo also still did not show any vegetation. We will monitor. If condition changes, then transesophageal echocardiogram umer l be recommended. 2.Coronary artery disease, status post open heart surgery recently. Wound is healing well. There a re no signs of infection. SR/MODL Voice ID: [id number] Report ID: [id number]
--- NOTE | 2022-12-14 19:09 | PN ---
Date of Progress Note: 12/13/2022 Subjective: Seen by bedside. No new changes. No complaints. Review of Systems: No chest pain, shortness of breath, orthopnea, cough. No nausea, vomiting, diarrhea. All other syst ems reviewed and they were negative. Physical Examination: Vital Signs: Reviewed. Head and Neck: Pupils are equal, reactive to light. Intact eye movements. No JVD. No cervical lym phadenopathy. Neck is supple. Thyroid is not enlarged. Lungs: Clear to auscultation bilaterally. No rhonchi, wheezing, or crackles. No accessory muscle u se. Heart: Irregular. No extra sounds. Abdomen: Soft, nontender. Bowel sounds positive. No organomegaly. No masses or hernia. No rigidi ty or rebound. Extremities: No clubbing or cyanosis. No edema. Skin: No rash. Neurologic: Alert, awake, oriented x3. No acute focal deficits appreciated. Investigations: Labs reviewed. Assessment And Recommendations: 1.Atrial fibrillation. Likely, it is causing his ejection fraction now. He was loaded with amiodar one. He continues to be in atrial fibrillation. I will plan doing ANKUR-guided cardioversion on him d uring this hospital stay. 2.Bacteremia. No evidence of endocarditis by echo. Monitor. If condition changes, then I will ashley n for doing transesophageal echocardiogram. 3.Congestive heart failure. The patient is euvolemic. I recommend to start low-dose beta johana, metoprolol 12.5 mg twice a day, and adjust the dose as his blood pressure tolerates and maybe introduce the low-dose OMAIRA inhibitor. SR/MODL Voice ID: [id number] Report ID: [id number]
[2022-12-14] MEDS: ATORVASTATIN 80 MG TAB PO SCH (21:18)
[2022-12-14] MEDS: HYDROCODONE/APAP 10/325 TAB PO PRN (23:21)
[2022-12-15] MEDS: CEFAZOLIN SODIUM 2 GM in NA CHLORIDE 0.9% 100 ML IVPB SCH ×3 (05:19→20:14)
[2022-12-15] MEDS ORDERED: CEFAZOLIN SODIUM 2 GM/VIAL ONE (05:20)
[2022-12-15] MEDS ORDERED: NA CHLORIDE 0.9% 100 ML ONE (05:21)
[2022-12-15] MEDS: APIXABAN 5 MG TABLET PO SCH ×2 (08:19→20:14)
[2022-12-15] MEDS: AMIODARONE HCL 200 MG TAB PO SCH ×2 (08:19→20:14)
[2022-12-15] MEDS: ASPIRIN 81 MG CHEWABLE TABLET PO SCH (08:19)
[2022-12-15] MEDS: Mupirocin NASAL 2 APPL/1 GM TUBE NAS SCH ×2 (08:20→20:15)
[2022-12-15] MEDS: INSULIN -REGULAR HUMAN 50 UNIT/0.5 ML ML SQ SCH ×4 (09:34→20:18)
--- NOTE | 2022-12-15 09:44 | P.PN ---
Date of Service: 12/15/22 Chief Complaint: fever, generalized weakness Subjective: Patient laying in bed. In no apparent distress. He denies any new or worsening complaints. No acute events reported overnight. at bedside. Physical Examination Temp Pulse Resp BP Pulse Ox 97.8 F 65 17 114/49 L 98 12/15/22 08:00 12/15/22 08:00 12/15/22 08:00 12/15/22 08:00 12/15/22 08:00 General: Alert, In no apparent distress, Oriented x3 HEENT: Atraumatic, Normocephalic Neck: Supple, JVD not distended Respiratory: Clear to auscultation bilaterally, Nonlabored respirations on room air. Cardiovascular: Irregular rhythm. No edema, Normal pulses. Gastrointestinal: Normal bowel sounds, Soft and benign, Non-distended Musculoskeletal: No clubbing, No swelling Integumentary: No rashes, No breakdown Neurological: Normal speech, Normal tone, Normal affect Studies Laboratory Data - Reviewed Microbiology Data - Reviewed Imagings Data: - CT Chest 12/09: "There is likely a 4 cm mass in the distal aspect of the stomach.Recommend direct visualization with upper endoscopy. Nonspecific noncalcified pulmonary nodules noted. Cannot rule out metastatic disease. Mild atelectasis with trace pleural effusions and both lung bases." - CT Abdomen pelvis 12/08: "No acute abnormality is displayed." Medications List: - Reviewed Assessment and Plan Problem List Diabetes Mellitus Type II CAD s/p CABG (2 months ago) Atrial Fibrillation Hypertension Hyperlipidemia Severe Sepsis, resolved MSSA Bacteremia Sepsis MSSA Bacteremia, source unclear Concern for possible endocarditis - Blood cultures 12/08: Staphylococcus aureus in 4 of 4 bottles - Repeat blood cultures 12.09: staph aureus in 1 of 3 bottles - Repeat blood cultures 12/10: No growth to date - Transthoracic Echocardiogram 12/09:"1. Moderately depressed left ventricular ejection fraction 35-40%. 2. Atrial fibrillation. 3. Mild concentric left ventricular hypertrophy. 4. Mild mitral, aortic, tricuspid and pulmonary regurgitation." - Previously on Rocephin (12/09-12/12) - Currently on Cefazolin IV (12/12-) - Focused Transthoracic Echo 12/13: "No clear vegetation is seen. If clinically indicated recommend transesophageal echocardiogram" 24 hour Tmax 99.4 F Leukocytosis resolved Recommendations - MSSA Bacteremia: On Cefazolin IV. Continue antibiotic therapy for at least 2 weeks from negative blood culture (12/10). - Concern for possible endocarditis. Repeat TTE 12/13 no clear vegetation seen. - Recommend obtaining a ANKUR. Cardiology following. - Strict blood glucose control - Fever trends Case discussed with Adrianne Vines
[2022-12-15] MEDS: HYDROCODONE/APAP 10/325 TAB PO PRN ×2 (12:35→22:35)
[2022-12-15] MEDS ORDERED: ACETAMINOPHEN 500 MG TAB PO ONE (15:13)
[2022-12-15] MEDS: ATORVASTATIN 80 MG TAB PO SCH (20:14)
--- NOTE | 2022-12-15 20:39 | PN ---
Date of Progress Note: 12/15/2022 Subjective: Seen by bedside. Doing clinically well. He was doing physical therapy without symptoms . Review of Systems: No chest pain, shortness of breath, orthopnea, or cough. No nausea, vomiting, or diarrhea. All othe r systems reviewed, they were negative. There is no fever. Physical Examination: Vital Signs: Reviewed. Head and Neck: Pupils are equal, reactive to light. Intact eye movements. No JVD. No cervical lym phadenopathy. Neck is supple. Thyroid is not enlarged. Lungs: Clear to auscultation bilaterally. No rhonchi, wheezing, or crackles. No accessory muscle u se. Heart: Regular rate and rhythm. No extra sounds. Abdomen: Soft, nontender. Bowel sounds positive. No organomegaly. No masses or hernia. No rigidi ty or rebound. Extremities: No edema, clubbing, or cyanosis. Intact pulses. Skin: No rash. No nodules. Neurologic: Alert, awake, and oriented x3. No acute focal deficits appreciated. Investigations: Labs were reviewed. Assessment And Recommendations: 1.Bacteremia. There is no fever. Normal white count. Continue current antibiotics. There is no e vidence of vegetation. I recommend to repeat echocardiogram after completion of antibiotics. 2.Dyslipidemia. Continue statin. 3.Atrial fibrillation, controlled. Continue Eliquis and amiodarone. 4.Diastolic heart failure, on IV Lasix on as needed basis. This can be switched to oral and to continue physical therapy in rehab post open heart surgery. SR/DEIRDRE Voice ID: [id number] Report ID: [id number]
--- NOTE | 2022-12-15 23:03 | PN ---
Date of Progress Note: 12/15/2022 Subjective: Seen by bedside. Doing clinically well. No fever. Review of Systems: No chest pain, shortness of breath. No dysuria, polyuria, or urinary urgency. All other systems rev iewed are negative. Physical Examination: General: Pleasant elderly male, in no distress. Vital Signs: Reviewed. Head and Neck: Pupils are equal, reactive to light. Intact eye movements. No JVD. No cervical lym phadenopathy. Neck is supple. Thyroid is not enlarged. Lungs: Clear to auscultation bilaterally. No rhonchi, wheezing, or crackles. No accessory muscle u se. Heart: Regular rate and rhythm. No extra sounds. Abdomen: Soft, nontender. Bowel sounds positive. No organomegaly. No masses or hernia. No rigidi ty or rebound. Extremities: No clubbing, cyanosis. Intact pulses. Skin: No rash. Neurologic: Alert, awake. No acute focal deficits appreciated. Investigations: White blood cell count is 8.5 cm, hemoglobin 12, and his creatinine is 1.0. Assessment/recommendations: 1.Bacteremia. No evidence of endocarditis per echo. Continue antibiotics regimen per ID. 2.Atrial fibrillation. It is controlled. Continue amiodarone and Eliquis. 3.Recent aortic valve replacement, aortic valve prosthesis is functioning well. 4.Dyslipidemia. Continue statin. SR/MODL Voice ID: [id number] Report ID: [id number]
[2022-12-16] MEDS: MELATONIN 5 MG TABLET PO PRN (00:38)
[2022-12-16] MEDS: CEFAZOLIN SODIUM 2 GM in NA CHLORIDE 0.9% 100 ML IVPB SCH ×2 (04:17→12:42)
[2022-12-16 04:39] VITALS: O2SAT 99
[2022-12-16] MEDS: INSULIN -REGULAR HUMAN 50 UNIT/0.5 ML ML SQ SCH ×2 (08:17→12:43)
[2022-12-16] MEDS: APIXABAN 5 MG TABLET PO SCH (08:18)
[2022-12-16] MEDS: AMIODARONE HCL 200 MG TAB PO SCH (08:18)
[2022-12-16] MEDS: ASPIRIN 81 MG CHEWABLE TABLET PO SCH (08:18)
[2022-12-16] MEDS: Mupirocin NASAL 2 APPL/1 GM TUBE NAS SCH (08:19)
[2022-12-16 08:40] VITALS: BP 125/58; TEMP 98.7
--- NOTE | 2022-12-16 09:01 | P.PN ---
Date of Service: 12/16/22 Chief Complaint: fever, generalized weakness Subjective: Improving. Patient seen and examined at bedside. No acute events reported overnight. Denies any new or worsening complaints. Physical Examination Temp Pulse Resp BP Pulse Ox 98.7 F 71 16 125/58 L 96 12/16/22 08:00 12/16/22 08:00 12/16/22 08:00 12/16/22 08:00 12/16/22 08:00 General: Alert, In no apparent distress, Oriented x3 HEENT: Atraumatic, Normocephalic Neck: Supple, JVD not distended Respiratory: Clear to auscultation bilaterally, Nonlabored respirations on room air. Cardiovascular: Irregular rhythm. No edema, Normal pulses. Gastrointestinal: Normal bowel sounds, Soft and benign, Non-distended Musculoskeletal: No clubbing, No swelling Integumentary: No rashes, No breakdown Neurological: Normal speech, Normal tone, Normal affect Studies Laboratory Data - Reviewed Microbiology Data - Reviewed Imagings Data: - CT Chest 12/09: "There is likely a 4 cm mass in the distal aspect of the stomach.Recommend direct visualization with upper endoscopy. Nonspecific noncalcified pulmonary nodules noted. Cannot rule out metastatic disease. Mild atelectasis with trace pleural effusions and both lung bases." - CT Abdomen pelvis 12/08: "No acute abnormality is displayed." Medications List: - Reviewed Assessment and Plan Problem List Diabetes Mellitus Type II CAD s/p CABG (2 months ago) Atrial Fibrillation Hypertension Hyperlipidemia Severe Sepsis, resolved MSSA Bacteremia Sepsis MSSA Bacteremia, source unclear Concern for possible endocarditis - Blood cultures 12/08: Staphylococcus aureus in 4 of 4 bottles - Repeat blood cultures 12.09: staph aureus in 1 of 3 bottles - Repeat blood cultures 12/10: No growth to date - Transthoracic Echocardiogram 12/09:"1. Moderately depressed left ventricular ejection fraction 35-40%. 2. Atrial fibrillation. 3. Mild concentric left ventricular hypertrophy. 4. Mild mitral, aortic, tricuspid and pulmonary regurgitation." - Previously on Rocephin (12/09-12/12) - Currently on Cefazolin IV (12/12-) - Focused Transthoracic Echo 12/13: "No clear vegetation is seen. If clinically indicated recommend transesophageal echocardiogram" Afebrile. Leukocytosis resolved Recommendations - MSSA Bacteremia: On Cefazolin IV. Continue antibiotic therapy for at least 2 weeks from negative blood culture (12/10). Currently on day 7 of 14. - Concern for possible endocarditis. Repeat TTE 12/13 no clear vegetation seen. - We recommend obtaining a Transesophageal echocardiogram - Cardiology following. Follow up with [facility] in 1-2 weeks after discharge. - Strict blood glucose control Case discussed with Adrianne Vines
[2022-12-16] MEDS: HYDROCODONE/APAP 10/325 TAB PO PRN (09:34)
--- NOTE | 2022-12-16 11:39 | RAD REPORT ---
EXAM DESCRIPTION: RAD - Chest Single View - 12/16/2022 11:32 am CLINICAL HISTORY: PICC line placement (right upper arm) COMPARISON: Chest Single View dated 12/08/2022; Chest Single View dated 10/14/2022; Chest Single View dated 09/23/2022 FINDINGS: Lines: Right subclavian approach PICC with tip overlying the proximal SVC . Lungs: No evidence of edema or pneumonia. Pleural: No significant pleural effusions or pneumothorax. Cardiac: The heart size is within normal limits. Mediastinum: Within normal limits. Bones: No acute fractures. Sternotomy . Other: None IMPRESSION: No acute cardiopulmonary disease. PICC tip overlies the proximal SVC.
[2022-12-16] MEDS: ACETAMINOPHEN 500 MG TAB PO PRN (12:45)
--- NOTE | 2022-12-16 17:09 | PN ---
Date of Progress Note: 12/16/2022 Subjective: Seen by bedside. No fever. No new complaints. He is doing very well, walking around w ithout issues. Review of Systems: No chest pain, shortness of breath, orthopnea, or cough. No nausea, vomiting, or diarrhea. All othe r systems reviewed, they were negative. Objective: Vital Signs: Reviewed. Head and Neck: Pupils are equal, reactive to light. Intact eye movements. No JVD. No cervical lym phadenopathy. Neck is supple. Thyroid is not enlarged. Lungs: Clear to auscultation bilaterally. No rhonchi, rales, or crackles. No accessory muscle use. Heart: Regular rate and rhythm. No extra sounds. Abdomen: Soft, nontender. Bowel sounds positive. No organomegaly. No masses or hernia. No rigidi ty or rebound. Extremities: No edema, clubbing, or cyanosis. Intact pulses. Skin: No rashes. No nodules. Neurologic: Alert, awake, and oriented x3. No acute focal deficits appreciated. Investigations: Labs were reviewed. Assessment And Recommendations: 1.Bacteremia. No recurrence and no endocarditis by echo. Recommend repeat echo after finishing the antibiotics course. 2.Atrial fibrillation, controlled. Continue amiodarone, Eliquis. 3.Aortic valve replacement. Aortic valve prosthesis is functioning well by echo. Monitor periodica lly. 4.Dyslipidemia. Continue statin. Cardiology will sign off and patient to be seen as an outpatient. SR/MODL Voice ID: [id number] Report ID: [id number]
== END 2022-12-16 14:10 | disposition home or self-care (01) | DRG 872 ==
LOC: ER 07:09 → ERHOLD 12:09 → 4TH 14:01 → OBSVTOIN 12-10 08:23
PROVIDERS: ADMIT Internal Medicine; ATTEND Hospitalist
PROC: 02HV33Z Insertion of Infusion Device into Superior Vena Cava, Percutaneous Approach (ICD-10-PCS; principal; 2022-12-16)
DX: A41.01 Sepsis due to Methicillin susceptible Staphylococcus aureus (principal); I42.9 Cardiomyopathy, unspecified; I77.4 Celiac artery compression syndrome; I50.30 Unspecified diastolic (congestive) heart failure; I11.0 Hypertensive heart disease with heart failure; R65.20 Severe sepsis without septic shock; G25.81 Restless legs syndrome; E78.00 Pure hypercholesterolemia, unspecified; E11.9 Type 2 diabetes mellitus without complications; I25.10 Atherosclerotic heart disease of native coronary artery without angina pectoris; K40.90 Unilateral inguinal hernia, without obstruction or gangrene, not specified as recurrent; K57.10 Diverticulosis of small intestine without perforation or abscess without bleeding; N40.0 Benign prostatic hyperplasia without lower urinary tract symptoms; M47.896 Other spondylosis, lumbar region; K31.9 Disease of stomach and duodenum, unspecified; N28.1 Cyst of kidney, acquired; I08.3 Combined rheumatic disorders of mitral, aortic and tricuspid valves; I48.0 Paroxysmal atrial fibrillation; F03.90 Unspecified dementia, unspecified severity, without behavioral disturbance, psychotic disturbance, mood disturbance, and anxiety; R91.8 Other nonspecific abnormal finding of lung field; Z95.1 Presence of aortocoronary bypass graft; Z95.2 Presence of prosthetic heart valve; Z79.84 Long term (current) use of oral hypoglycemic drugs; Z79.82 Long term (current) use of aspirin; Z90.49 Acquired absence of other specified parts of digestive tract; Z79.899 Other long term (current) drug therapy
CPT/HCPCS: 36415; 36569; 70450; 71045; 71250; 72125; 74177; 80048; 80053; 81001; 81003; 82947; 83036; 83605; 83735; 83880; 84100; 84145; 84484; 85025; 85610; 85730; 87040; 87077; 87186; 87205; 87635; 87804; 93005; 93306; 93308; 96361; 96365; 96367; 96375; 97116; 97161; 97530; 99285; J0282; J0696; J1644; J1650; J1815; J2405; J3475; J7030; J7040; J7050; J7060; Q9967

== ENCOUNTER 2022-12-25 14:32 | Emergency (ER) | payer OTHER ==
--- OUTSIDE RECORDS SUMMARY | 2022-12-25 14:40 | XMS REPORT | Continuity of Care Document ---
:1940 Author Organization [facility] t Address [address] [place] [address] [address] [place] [address] Care Team Providers Name Role [facility] Primary Care Physician Kathya Maria Attending Clinician Unavailable RADIOLOGY Attending Clinician Unavailable Radiology Attending Clinician Unavailable Kathya Maria Admitting Clinician Unavailable Payers Payer Name Policy Type Policy Number Effective Date Expiration Date S [facility] [id number] 2022 00:00:00 Problems This patient has no known problems. Allergies, Adverse Reactions, Alerts Allergy Allergy Status Severity Reaction(s) Onset Inactive Treating Comm ents Source Name Type Date Date Clinician No Known DA Active U [facility] Allergie 09-24 Clear s 00:00: Jackson [address] [place] [address] NO KNOWN Drug Active Univers ALLERGIE Class [facility] of [facility] Social History Social Habit Start Date Stop Date Quantity Comments Source Gender identity General acute hospital Sexual orientation [facility] Sex Assigned At [birth year] Uni versity [facility] 00:00:00 00:00:00 Medical Branch Smoking Status Start Date Stop Date Source Tobacco smoking consumption [facility] Branch Medications Ordered Filled Start Stop Current Ordering Indication Dosage Frequency Signature Comments Components Source Medication Medication Date Date Medication? Clinician (SIG) Name Name gadoteridol 2022- No [id number] .2mL/kg 0.2 mL/kg, Univers (PROHANCE-2 12-07 Intravenou i ty of 0 mL) 22:15: 22:13 s, ONCE, 1 [place] injection 00 :00 dose, On Medica l 0.2 mL/kg Wed Branch 12/07/22 at 1715, Routine Procedures Procedure Date / Time Performing Clinician Source Performed NO SHOW OR MISSED 2022-12-07 20:48:49 Doctor Unassigned, [facility] APPOINTMENT POLICY [facility] A[facility]LED[facility] FINANCIAL 2022-12-07 20:47:29 Doctor Unassigned, Un [facility] POLICY [facility] NOTICE OF PRIVACY 2022-12-07 20:46:52 Doctor Unassigned, [facility] PRACTICES [facility] ASSIGNMENT OF BENEFITS 2022-12-07 20:46:20 Doctor Unassigned, Un [facility] CONSENT/REFUSAL FOR 2022-12-07 20:45:25 Doctor Unassigned, [facility] DIAGNOSIS AND TREATMENT [facility] [id number] 2022-09-26 00:00:00 CHAAB.01 [facility] [id number] 2022-09-26 00:00:00 CHAAB.01 [facility] [id number] 2022-09-26 00:00:00 CHAAB.01 [facility] [id number] 2022-09-26 00:00:00 CHAAB.01 [facility] [id number] 2022-09-26 00:00:00 CHAAB.01 [facility] [id number] 2022-09-26 00:00:00 CHAAB.01 [facility] [id number] 2022-09-26 00:00:00 CHAAB.01 [facility] [id number] 2022-09-26 00:00:00 CHAAB.01 [facility] [id number] 2022-09-26 00:00:00 CHAAB.01 [facility] Encounters Start End Encounter Admission Attending Care Care Encounter Source Date/Time Date/Time Type Type Clinicians Facility Department ID 2022-09-23 Inpatient UMAIR Maria HCACL [id number] [facility] 18:45:00 Neeru 09 [facility] 2022-12-07 2022-12-07 Outpatient R RADIOLOGY [facility] [id number] Univers 15:47:22 23:59:00 ity of [facility] 2022-12-07 2022-12-07 Hospital [facility] [id number] [facility] 15:47:22 23:59:00 Encounter [place] [id number] ity [facility] [id number] [facility] [id number] [facility] 804 Branch 2022-09-24 2022-10-05 Inpatient UR UMAIR Maria INTE.02 [id number] [facility] 00:53:00 15:39:00 Neeru 26 [facility] Results Test Description Test Time Test Comments Results Result Comments Source GLUCOSE BEDSIDE 2022-10-05 12:09:00 Test Item Value Reference Range Interpretation Comme nts GLUCOSE BEDSIDE (test code = 245 MG/DL 70-110 H Performed by certified computer numerical control operator at [facility]) [facility] CBC W/AUTO [id number] 07:39:00 Test Item Value Reference Range Interpretation [...] (test code NO = MDIFF) BASIC METABOLIC [id number] 07:35:00 Test Item Value Reference Range Interpretation [...] code = 8.9 mg/dL 8.0-10.5 N CA) [id number] 07:35:00 Test Item Value Reference Range Interpretation Comments MAGNESIUM (test code = MAG) 1.85 mg/dL 1.80-2.40 GLUCOSE [id number] 06:08:00 Test Item Value Reference Range Interpretation Comments GLUCOSE BEDSIDE (test 123 MG/DL 70-110 H Perfor med by certified code = GLUBED) computer numerical control operator at [facility] GLUCOSE [id number] 00:14:00 Test Item Value Reference Range Interpretation Comments GLUCOSE BEDSIDE (test 143 MG/DL 70-110 H Perfor med by certified code = GLUBED) computer numerical control operator at [facility] - DUP VEIN [id number] 00:00:00 [facility] FILIBERTOName: MONICA BECK : 1940 Sex: M Name: MONICA BECK [facility] [place] : 1940 Age/S: 82 / M [address] [place] [address] Unit #: [id number] Loc: [place] [address] Phys: Analilia Erwin Acct: [id number] Dis Date: Status: ADM IN PHONE #: [phone] Exam Date: 10/05/2022 1007 FAX #: [phone] Reason: R/O DVT EXAMS: CPT CODE: [id number] DUP VEIN AILEEN 05309 PROCEDURE INFORMATION: Exam: US Duplex Lower Extremity [...] deep veins: Unremarkable. The common femoral, femoral, proxi mal profunda femoral and popliteal veins are patent [...] PAGE 1 Signed Report- XR CHEST 1 [id number] 00:00:00 [facility] DONIGEL : 1940 Sex: M FAX: Kathya Hassan [phone] [place]: St: ADM Name: KIRANMONICA [facility] : 1940 Age/S: 82/M [address] [place] [address] Unit #: [id number] Loc: G.3362 [place] [address] Phys: Kathya Maria MD Acct: [id number] Dis Date: Status: ADM IN PHONE #: [phone] Exam Date: 10/05/2022558 FAX #: [phone] Reason: Post CV Surgery EXAMS: CPT CODE: [id number] XR CHEST 1 V 01532 PROCEDURE INFORMATION: Exam: XR Chest Exam date and time: 10/05/2022 5:58 AM Age: 82 years old Clinical indication: Other: Post cv surgery TECHNIQUE: Imaging protocol: Radiologic exam of the chest. Views: 1 view. COMPARISON: CR XR CHEST 1V 03/10/2022 05:20 FINDINGS: Tubes, catheters and devices: None Lungs: Improved aeration of the right lung. There is [...] S: 10/05/2022 (802) PAGE 1 Signed ReportGLUCOSE [id number] 20:40:00 Test Item Value Reference Range Interpretation Comments GLUCOSE BEDSIDE (test 218 MG/DL 70-110 H Perfor med by certified code = GLUBED) computer numerical control operator at [facility] GLUCOSE [id number] 17:28:00 Test Item Value Reference Range Interpretation Comments GLUCOSE BEDSIDE (test 223 MG/DL 70-110 H Perfor med by certified code = GLUBED) computer numerical control operator at [facility] GLUCOSE [id number] 11:55:00 Test Item Value Reference Range Interpretation Comments GLUCOSE BEDSIDE (test 215 MG/DL 70-110 H Perfor med by certified code = GLUBED) computer numerical control operator at [facility] GLUCOSE [id number] 06:10:00 Test Item Value Reference Range Interpretation Comments GLUCOSE BEDSIDE (test 198 MG/DL 70-110 H Perfor med by certified code = GLUBED) computer numerical control operator at [facility] BASIC METABOLIC [id number] 05:45:00 Test Item Value Reference Range Interpretation [...] code = 8.9 mg/dL 8.0-10.5 N CA) [id number] 05:45:00 Test Item Value Reference Range Interpretation Comments MAGNESIUM (test code = MAG) 1.56 mg/dL 1.80-2.40 L CBC W/AUTO [id number] 05:30:00 Test Item Value Reference Range Interpretation [...] REQUIRED (test code NO = MDIFF) GLUCOSE [id number] 01:24:00 Test Item Value Reference Range Interpretation Comments GLUCOSE BEDSIDE (test 161 MG/DL 70-110 H Perfor med by certified code = GLUBED) computer numerical control operator at [facility] GLUCOSE [id number] 22:10:00 Test Item Value Reference Range Interpretation Comments GLUCOSE BEDSIDE (test 102 MG/DL 70-110 N Perfor med by certified code = GLUBED) computer numerical control operator at [facility] GLUCOSE [id number] 16:51:00 Test Item Value Reference Range Interpretation Comments GLUCOSE BEDSIDE (test 218 MG/DL 70-110 H Perfor med by certified code = GLUBED) computer numerical control operator at [facility] HEPATIC FUNCTION [id number] 07:35:00 Test Item Value Reference Range Interpretation [...] IUnit/L 20-125 N code = ALKP) GLUCOSE [id number] 06:44:00 Test Item Value Reference Range Interpretation Comments GLUCOSE BEDSIDE (test 175 MG/DL 70-110 H Perfor med by certified code = GLUBED) computer numerical control operator at [facility] BASIC METABOLIC [id number] 03:45:00 Test Item Value Reference Range Interpretation [...] recommended for philipp for GFRby the [facility] Kidney Foundati on for Adults.The GFR will not calculate if th e sex is unknown or if thepatient's ag e is <18 years. CREATININE (test 1.0 mg/dL 0.6-1.3 N code = CREAT) CALCIUM (test code = 9.0 mg/dL 8.0-10.5 N CA) [id number] 03:45:00 Test Item Value Reference Range Interpretation Comments MAGNESIUM (test code = MAG) 1.69 mg/dL 1.80-2.40 L CBC W/AUTO [id number] 03:41:00 Test Item Value Reference Range Interpretation [...] REQUIRED (test code NO = MDIFF) GLUCOSE [id number] 00:57:00 Test Item Value Reference Range Interpretation Comments GLUCOSE BEDSIDE (test 160 MG/DL 70-110 H Perfor med by certified code = GLUBED) computer numerical control operator at [facility] - XR CHEST 1 [id number] 00:00:00 [facility] : 1940 Sex: M FAX: Kathya Hassan [phone] [place]: St: ADM FAX: Sade Erwin MD [phone] Name: MONICA BECK [facility] Julianne Jackson : 1940 Age/S: 82/M [address] [place] [address] Blvd Unit #: [id number] Loc: [address] [address] Phys: Sade Arana MD Acct: [id number] Dis Date: Status: ADM IN PHONE #: [phone] Exam Date: 10/03/2022519 FAX #: [phone] Reason: POST CABG/AVR, DAILY EVAL EXAMS: CPT CODE: [id number] XR CHEST 1 V 48303 PROCEDURE INFORMATION: Exam: XR Chest Exam date [...] Kathya Maria MD; Sade Arana MD Technologist: KEERTHI Mendoza) Trnscrd Date/Time/By: 10/03/2022 (0716) : By: [email or web address] Orig Print D/T: S: 10/03/2022 (0716) PAGE 1 Signed ReportGLUCOSE [id number] 18:21:00 Test Item Value Reference Range Interpretation Comments GLUCOSE BEDSIDE (test 151 MG/DL 70-110 H Perfor med by certified code = GLUBED) computer numerical control operator at [facility] GLUCOSE [id number] 12:02:00 Test Item Value Reference Range Interpretation Comments GLUCOSE BEDSIDE (test 293 MG/DL 70-110 H Perfor med by certified code = GLUBED) computer numerical control operator at [facility] GLUCOSE [id number] 08:04:00 Test Item Value Reference Range Interpretation Comments GLUCOSE BEDSIDE (test 149 MG/DL 70-110 H Perfor med by certified code = GLUBED) computer numerical control operator at [facility] GLUCOSE [id number] 06:44:00 Test Item Value Reference Range Interpretation Comments GLUCOSE BEDSIDE (test 137 MG/DL 70-110 H Perfor med by certified code = GLUBED) computer numerical control operator at [facility] BASIC METABOLIC [id number] 03:55:00 Test Item Value Reference Range Interpretation [...] 9.1 mg/dL 8.0-10.5 N CA) HEPATIC FUNCTION [id number] 03:55:00 Test Item Value Reference Range Interpretation [...] 89 IUnit/L 20-125 N code = ALKP) [id number] 03:55:00 Test Item Value Reference Range Interpretation Comments MAGNESIUM (test code = MAG) 1.90 mg/dL 1.80-2.40 N CBC W/AUTO [id number] 03:50:00 Test Item Value Reference Range Interpretation [...] REQUIRED (test code NO = MDIFF) GLUCOSE [id number] 00:22:00 Test Item Value Reference Range Interpretation Comments GLUCOSE BEDSIDE (test 223 MG/DL 70-110 H Perfor med by certified code = GLUBED) computer numerical control operator at [facility] - XR CHEST 1 [id number] 00:00:00 [facility] : 1940 Sex: M FAX: Kathya Hassan [phone] [place]: St: ADM FAX: Analilia Crowell [facility] [phone] Name: MONICA BECK [facility] : 1940 Age/S: 82/M [address] [place] [address] Unit #: [id number] Loc: [address] [place] [address] Phys: Analilia Erwin Physic Acct: [id number] Dis Date: Status: ADM IN PHONE #: [phone] Exam Date: 10/02/2022739 FAX #: [phone] Reason: Cardiac Surgery Post Op EXAMS: CPT CODE: [id number] XR CHEST 1 V 44541 PROCEDURE INFORMATION: Exam: XR Chest Exam date and time:10/02/2022 5:59 AM Age: 82 years old Clinical [...] By: [email or web address] Orig Print D/T: S: 10/02/2022 (7605) PAGE 1 Signed ReportGLUCOSE [id number] 21:11:00 Test Item Value Reference Range Interpretation Comments GLUCOSE BEDSIDE (test 166 MG/DL 70-110 H Perfor med by certified code = GLUBED) computer numerical control operator at [facility] GLUCOSE [id number] 17:30:00 Test Item Value Reference Range Interpretation Comments GLUCOSE BEDSIDE (test 163 MG/DL 70-110 H Perfor med by certified code = GLUBED) computer numerical control operator at [facility] GLUCOSE [id number] 12:28:00 Test Item Value Reference Range Interpretation Comments GLUCOSE BEDSIDE (test 205 MG/DL 70-110 H Perfor med by certified code = GLUBED) computer numerical control operator at [facility] GLUCOSE [id number] 08:08:00 Test Item Value Reference Range Interpretation Comments GLUCOSE BEDSIDE (test 149 MG/DL 70-110 H Perfor med by certified code = GLUBED) computer numerical control operator at [facility] CBC W/AUTO [id number] 05:18:00 Test Item Value Reference Range Interpretation [...] (test code NO = MDIFF) BASIC METABOLIC [id number] 04:53:00 Test Item Value Reference Range Interpretation [...] 8.7 mg/dL 8.0-10.5 N CA) HEPATIC FUNCTION [id number] 04:53:00 Test Item Value Reference Range Interpretation [...] 75 IUnit/L 20-125 N code = ALKP) [id number] 04:53:00 Test Item Value Reference Range Interpretation Comments MAGNESIUM (test code = MAG) 1.93 mg/dL 1.80-2.40 N - XR CHEST 1 [id number] 00:00:00 [facility] MONICA [facility] : 1940 Sex: M FAX: Madeline MariaEitannan [phone] [place]: St: [facility] FAX: Analilia Crowell [facility] [phone] Name: MONICA BECK [facility] [place] : 1940 Age/S: 82/M [address] [place] [address] Unit #: [id number] Loc: G.2201 [place] [address] Phys: Analilia Erwin Physic Acct: [id number] Dis Date: Status: ADM IN PHONE #: [phone] Exam Date: 10/01/2022729 FAX #: [phone] Reason: Cardiac Surgery Post Op EXAMS: CPT CODE: [id number] XR CHEST 1 V 78051 PROCEDURE INFORMATION: Exam: XR Chest Exam date [...] plaque demonstrated within the aorta. Bones/joints: Sternotomy wires,hardware is demonstrated. IMPRESSION: 1. Moderate enlarged cardiac silhouette. 2. Linear bilateral chest pulmonary atelectasis, or scarring. 3. Minimal right pleural effusion. 4. Mild interstitial pulmonary edema versus infiltrates. at 0810 Reported and signed by: Nayan Jacobsen M.D. CC: Kathya Maria MD; Analilia Erwin Technologist: Jacob Fernandes Trnscrd Date/Time/By: 10/01/2022 (809) : By: [email or web address] Orig Print D/T: S: 10/01/2022 (0811) PAGE 1 Signed ReportGLUCOSE [id number] 21:12:00 Test Item Value Reference Range Interpretation Comments GLUCOSE BEDSIDE (test 153 MG/DL 70-110 H Perfor med by certified code = GLUBED) computer numerical control operator at [facility] GLUCOSE [id number] 16:44:00 Test Item Value Reference Range Interpretation Comments GLUCOSE BEDSIDE (test 166 MG/DL 70-110 H Perfor med by certified code = GLUBED) computer numerical control operator at [facility] GLUCOSE [id number] 12:02:00 Test Item Value Reference Range Interpretation Comments GLUCOSE BEDSIDE (test 219 MG/DL 70-110 H Perfor med by certified code = GLUBED) computer numerical control operator at [facility] CBC W/AUTO [id number] 09:24:00 Test Item Value Reference Range Interpretation [...] REQUIRED (test code NO = MDIFF) PLT [id number] 09:24:00 Test Item Value Reference Range Interpretation Comments PLATELET ESTIMATE (test code = THOUSAND ADEQUATE PLTEST) GLUCOSE [id number] 06:50:00 Test Item Value Reference Range Interpretation Comments GLUCOSE BEDSIDE (test 197 MG/DL 70-110 H [facility] med by certified code = GLUBED) computer numerical control operator at [facility] BASIC METABOLIC [id number] 03:30:00 Test Item Value Reference Range Interpretation [...] the recommended for philipp for GFRby the [facility] Kidney Foundati on for Adults.The GFR will not calculate if th e sex is unknown or if thepatient's ag e is <18 years. CREATININE (test 1.3 mg/dL 0.6-1.3 N code = CREAT) CALCIUM (test code = 8.7 mg/dL 8.0-10.5 N CA) HEPATIC FUNCTION [id number] 03:30:00 Test Item Value Reference Range Interpretation [...] 56 IUnit/L 20-125 N code = ALKP) [id number] 03:30:00 Test Item Value Reference Range Interpretation Comments MAGNESIUM (test code = MAG) 2.11 mg/dL 1.80-2.40 N - XR CHEST 1 [id number] 00:00:00 [facility] : 1940 Sex: M FAX: Kathya Hassan [phone] [place]: St: ADM FAX: Analilia Crowell [facility] [phone] Name: MONICA BECK [facility] : 1940 Age/S: 82/M [address] [place] [address] Unit #: [id number] Loc: [place] [address] Phys: Analilia Erwin Physic Acct: [id number] Dis Date: Status: ADM IN PHONE #: [phone] Exam Date: 09/30/2022721 FAX #: [phone] Reason: Cardiac Surgery Post Op EXAMS: CPT CODE: [id number] XR CHEST 1 V 47854 PROCEDURE INFORMATION: Exam: XR Chest Exam date [...] CC: Kathya Maria MD; Analilia Erwin Technologist: KEERTHI Palomares) Trnscrd Date/Time/By: 09/30/2022 (1949) : By: [email or web address] Orig Print D/T: S: 09/30/2022 (4652) PAGE 1 Signed ReportGLUCOSE [id number] 23:57:00 Test Item Value Reference Range Interpretation Comments GLUCOSE BEDSIDE (test 192 MG/DL 70-110 H [facility] med by certified code = GLUBED) computer numerical control operator at [facility] RENAL FUNCTION [id number] 18:03:00 Test Item Value Reference Range Interpretation [...] MG/DL 2.5-4.9 N code = PHOS) GLUCOSE [id number] 16:57:00 Test Item Value Reference Range Interpretation Comments GLUCOSE BEDSIDE (test 226 MG/DL 70-110 H Perfor med by certified code = GLUBED) computer numerical control operator at [facility] GLUCOSE [id number] 08:42:00 Test Item Value Reference Range Interpretation Comments GLUCOSE BEDSIDE (test 135 MG/DL 70-110 H Perfor med by certified code = GLUBED) computer numerical control operator at [facility] BASIC METABOLIC [id number] 03:55:00 Test Item Value Reference Range Interpretation [...] the recommended for philipp for GFRby the [facility] Kidney Foundati on for Adults.The GFR will not calculate if th e sex is unknown or if thepatient's ag e is <18 years. CREATININE (test 1.5 mg/dL 0.6-1.3 H code = CREAT) CALCIUM (test code = 8.6 mg/dL 8.0-10.5 N CA) COMMENTS: POD #1HEPATIC FUNCTION [id number] 03:55:00 Test Item Value Reference Range Interpretation [...] 20-125 N code = ALKP) COMMENTS: POD #[id number] 03:55:00 Test Item Value Reference Range Interpretation Comments MAGNESIUM (test code = MAG) 2.48 mg/dL 1.80-2.40 H COMMENTS: POD #1CBC W/AUTO [id number] 03:49:00 Test Item Value Reference Range Interpretation [...] REQUIRED (test code NO = MDIFF) GLUCOSE [id number] 01:07:00 Test Item Value Reference Range Interpretation Comments GLUCOSE BEDSIDE (test 151 MG/DL 70-110 H Perfor med by certified code = GLUBED) computer numerical control operator at [facility] - XR CHEST 1 [id number] 00:00:00 [facility]ECKJohn : 1940 Sex: M FAX: Kathya Hassan [phone] [place]: St: ADM FAX: Analilia Crowell [facility] [phone] Name: MONICA BECK [facility] : 1940 Age/S: 82/M [address] [place] [address] Unit #: [id number] Loc: G.2208 [place] [address] Phys: Analilia Erwin Physic Acct: [id number] Dis Date: Status: ADM IN PHONE #: [phone] Exam Date: 09/29/2022503 FAX #: [phone] Reason: Cardiac Surgery Post Op Report Has Been Amended EXAMS: CPT CODE: [id number] XR CHEST 1 V 92086 Addendum - 09/29/2022 LPPTND3309/29/2022 ADDENDUM: [id number] RAD/CXR1 Report discussed with ordering clinician by [...] 1 Signed Report (CONTINUED) FAX: Kathya Hassan [phone] [place]: St: [facility] FAX: Analilia Crowell [facility] [phone] Name: MONICA BECK [facility] : 1940 Age/S: 82/M [address] [place] [address] Unit #: [id number] Loc: [address] [place] [address] Phys: Analilia Erwin Physic Acct: [id number] Dis Date: Status: ADM IN PHONE #: [phone] Exam Date: 09/29/2022 0504 FAX #: [phone] Reason: Cardiac Surgery Post Op Report Has Been Amended EXAMS: CPT CODE: [id number] XR CHEST 1 V 18783(Continued) at 0728 Reported and signed by: Mauri Walsh M.D. CC: Kathya Maria MD; Analilia Erwin Technologist: RT Twin(R) Trnscrd Date/Time/By: 09/29/2022 (727) : By: [email or web address] Orig Print D/T:S: 09/29/2022 (727) PAGE 2 Signed ReportGLUCOSE [id number] 23:14:00 Test Item Value Reference Range Interpretation Comments GLUCOSE BEDSIDE (test 198 MG/DL 70-110 H Perfor med by certified code = GLUBED) computer numerical control operator at [facility] GLUCOSE [id number] 20:49:00 Test Item Value Reference Range Interpretation Comments GLUCOSE BEDSIDE (test 172 MG/DL 70-110 H Perfor med by certified code = GLUBED) computer numerical control operator at [facility] POC ARTERIAL BLOOD [id number] 20:38:00 Test Item Value Reference Range Interpretation Comments POC ARTERIAL BLOOD GAS PH (test 7.443 7.35-7.45 N code = POCPHA) POC ARTERIAL BLOOD GAS PCO2 33.2 mmHg 35.0-45 L (test code = FXNFYX3X) POC TCO2 ARTERIAL (test code = 23.8 POCTCO2) POC ARTERIAL BLOOD GAS PO2 (test 75.7 mmHg 80-100.0 L code = IIFOM0Q) POC HCO3 ARTERIAL (test code = 22.8 MMOL/L 22.0-26.0 N [id number]) POC BASE EXCESS (test code = -1.4 MMOL/L -4.0-4.0 N POCBEA) POC O2 SATURATION (test code = 96.0 % 90-100 N POCO2S) FIO2 (test code = FIO2A) 32 % PaO2/FiO2 (test code = IAE0SVC0) 236.56 mm/Hg ABG DELIVERY (test code = LELO) HFNC ABG TEMPERATURE (test code = 97.8 F TEMPA) ABG SITE (test code = SITEA) Art Line BASIC METABOLIC [id number] 20:38:00 Test Item Value Reference Range Interpretation [...] = POCGLU) 143 MG/DL 70-110 H HEMOGLOBIN [id number] 20:38:00 Test Item Value Reference Range Interpretation Comments HEMOGLOBIN ABG (test code = HGB/ABG) 7.2 G/DL 12.5-16.9 L [id number] 20:38:00 Test Item Value Reference Range Interpretation Comments HEMATOCRIT (test code = HCT/ABG) 21 % 37.5-50.7 L POC LACTIC [id number] 20:38:00 Test Item Value Reference Range Interpretation Comments POC LACTIC ACID (test code = 0.9 mmol/l 0.9-1.7 N POCLAC) BASIC METABOLIC [id number] 18:34:00 Test Item Value Reference Range Interpretation [...] = 9.2 mg/dL 8.0-10.5 N CA) GLUCOSE [id number] 14:18:00 Test Item Value Reference Range Interpretation Comments GLUCOSE BEDSIDE (test 147 MG/DL 70-110 H Perfor med by certified code = GLUBED) computer numerical control operator at [facility] BASIC METABOLIC [id number] 13:39:00 Test Item Value Reference Range Interpretation [...] 9.1 mg/dL 8.0-10.5 N CA) UR SODIUM [id number] 13:24:00 Test Item Value Reference Range Interpretation Comments UR SODIUM RANDOM 32 MEQ/L The Referen ce Range and (test code = DEMETRIA) Method Per formance specificationsh ave not been established for this fluid. The test result should be correlated into the clinical context forinte rpretation. UR CREATININE [id number] 13:24:00 Test Item Value Reference Range Interpretation Comments UR CREATININE 182.6 mg/dL The Reference Range and RANDOM (test code Method Per formance = CREATU) specificationsh ave not been establishe d for this fluid. The test resultshould be correlated into the clinical contex t forinterpretati on. [id number] 12:20:00 Test Item Value Reference Interpretation Comments Range SURGICAL (test code = SR) RUN DATE: 09/28/22 [place] - LAB PAGE 1 RUN TIME: 1220 Specimen Inquiry RUN USER: INTERFACE PAT[facility]: [facility] #: [id number] AGE/SX: 82/M ROOM: [facility] RE09/24/22REG DR: Kathya Maria : 42 BED: 1 DIS: STATUS: ADM IN TLOC: SPEC #: [id number] RECD: 09/27/22 STATUS: COLTON K[place] #: [id number] RADHA: 09/26/22- SUBM DR: Kathya Maria MD ENTERED: 09/27/22 SP TYPE: SURGICAL OTHR DR: Self Referred Jakob Pa MD, Christopher A DO Mouchli, Anas MDORDERED: 57542, 38618, ANATOMIC SPEC COPIES TO: Self Referred Jakob Pa MD [address] [id number] [place] [address] [id number] Kathya Maria MD [address] [place] [address]. [address] [place] [address] Milton Mast MD [address] [place] [address] PROCEDURES: 41667 (09/27/22) 28565 (09/27/22) TISSUES: A. ATRIUM - LEFT ATRIAL APPENDAGE B. AORTIC VALVE - LEAFLETS CLINICAL HISTORY SAME CONTINUED ON NEXT PAGE RUN DATE: 09/28/22 [facility] PAGE 2 RUN TIME: 1220 Specimen Inquiry RUN USER: INTERFACE SPEC #: [id number] PATIENT: MONICA BECK #[id number] (Continued) - FINAL DIAGNOSIS Left atrial appendage, [...] submitted in B. Technical component performed at [address], [place] [address] Unless gross only, the diagnosis is based [...] Signed SIGNATURE ON FILE Sheng Han 09/28/22 4465 END OF REPORT GLUCOSE [id number] 11:48:00 Test Item Value Reference Range Interpretation Comments GLUCOSE BEDSIDE (test 218 MG/DL 70-110 H Perfor med by certified code = GLUBED) computer numerical control operator at [facility] HGB [id number] 08:24:00 Test Item Value Reference Range Interpretation Comments HEMOGLOBIN (test TEST NOT 12.5-16.9 L Amended code = HGB) PERFORMED g/dL report. Disre ronny previous result/results* Previously reported result : 8.2 g/dLEdited by: [email or web address] on 09/28/22:822: HGB previously reported as: 8. 2 L g/dL HEMATOCRIT (test TEST NOT 37.5-50.7 L Previously code = HCT) PERFORMED % reported result : 23.9 %Edited by : YOONCM2 on 09/28/22:822: HCT previously reported as: 23 .9 L % CBC W/AUTO [id number] 08:22:00 Test Item Value Reference Range Interpretation [...] REQUIRED (test code NO = MDIFF) GLUCOSE [id number] 07:48:00 Test Item Value Reference Range Interpretation Comments GLUCOSE BEDSIDE (test 162 MG/DL 70-110 H Perfor med by certified code = GLUBED) computer numerical control operator at [facility] CBC W/AUTO [id number] 02:57:00 Test Item Value Reference Range Interpretation [...] REQUIRED (test code NO = MDIFF) PLT [id number] 02:57:00 Test Item Value Reference Range Interpretation Comments PLATELET ESTIMATE (test code 88-110 THOUSAND ADEQUATE = PLTEST) PLATELET MORPHOLOGY (test LARGE PLATELETS code = PLTMORPH) BASIC METABOLIC [id number] 02:48:00 Test Item Value Reference Range Interpretation [...] 8.0-10.5 N CA) COMMENTS: POD #1HEPATIC FUNCTION [id number] 02:48:00 Test Item Value Reference Range Interpretation [...] 20-125 N code = ALKP) COMMENTS: POD #[id number] 02:48:00 Test Item Value Reference Range Interpretation Comments MAGNESIUM (test code = MAG) 2.14 mg/dL 1.80-2.40 N COMMENTS: POD #1CALCIUM [id number] 02:40:00 Test Item Value Reference Range Interpretation Comments CALCIUM IONIZED (test code = DONOVAN) 1.17 MMOL/L 1.09-1.30 N - XR CHEST 1 [id number] 00:00:00 [facility] 1940 Sex: M FAX: Kathya Hassan [phone] [place]: St: ADM FAX: Analilia Crowell [facility] [phone] Name: MONICA BECK [facility] [place] : 1940 Age/S: 82/M [address] [place] [address] Unit #: [id number] Loc: .[address] [place] [address] Phys: Analilia Erwin Physic Acct: [id number] Dis Date: Status: ADM IN PHONE #: [phone] Exam Date: 09/28/2022 06 FAX #: [phone] Reason: Cardiac Surgery Post Op EXAMS: CPT CODE: [id number] XR CHEST 1 V 39661 PROCEDURE INFORMATION: Exam: XR Chest Exam date [...] precludes accurate evaluation of the cardiac silhouette size.Pleural spaces: No pneumothorax is seen. Heart/Mediastinum: Unremarkable. No cardiomegaly. Bones/joints: The patient has had a prior median sternotomy and CABG surgery. IMPRESSION: 1. No significant interval change. Hypoventilatory changes in the lung bases. 2. Satisfactory line and tube placement unchanged. at 0752 Reported and signed by: Aleksandr Delgado M.D. CC: Kathya Maria MD; Analilia Bullock Physic Rip Technologist: RT Melia(Darin) Trnscrd Date/Time/By: 09/28/2022 (0752) : By: [email or web address] Orig Print D/T: S: 09/28/2022 (0753) PAGE 1 Signed ReportGLUCOSE [id number] 23:15:00 Test Item Value Reference Range Interpretation Comments GLUCOSE BEDSIDE (test 165 MG/DL 70-110 H Perfor med by certified code = GLUBED) computer numerical control operator at [facility] GLUCOSE [id number] 20:36:00 Test Item Value Reference Range Interpretation Comments GLUCOSE BEDSIDE (test 194 MG/DL 70-110 H Perfor med by certified code = GLUBED) computer numerical control operator at [facility] GLUCOSE [id number] 17:04:00 Test Item Value Reference Range Interpretation Comments GLUCOSE BEDSIDE (test 131 MG/DL 70-110 H Perfor med by certified code = GLUBED) computer numerical control operator at [facility] GLUCOSE [id number] 14:49:00 Test Item Value Reference Range Interpretation Comments GLUCOSE BEDSIDE (test 149 MG/DL 70-110 H Perfor med by certified code = GLUBED) computer numerical control operator at [facility] GLUCOSE [id number] 12:37:00 Test Item Value Reference Range Interpretation Comments GLUCOSE BEDSIDE (test 162 MG/DL 70-110 H Perfor med by certified code = GLUBED) computer numerical control operator at [facility] GLUCOSE [id number] 11:43:00 Test Item Value Reference Range Interpretation Comments GLUCOSE BEDSIDE (test 213 MG/DL 70-110 H Perfor med by certified code = GLUBED) computer numerical control operator at [facility] GLUCOSE [id number] 07:44:00 Test Item Value Reference Range Interpretation Comments GLUCOSE BEDSIDE (test 141 MG/DL 70-110 H Perfor med by certified code = GLUBED) computer numerical control operator at [facility] PROTHROMBIN [id number] 06:32:00 Test Item Value Reference Range Interpretation [...] (to prevent recurrent infar ct). THROMBOPLASTIN TIME [id number] 06:32:00 Test Item Value Reference Range Interpretation Comments THROMBOPLASTIN TIME 31.3 Seconds 25.0-39.5 N Therape utic Range: PARTIAL (test code = 50.4 - 88.3 Seconds PTT) Effective 09/04/2018 CBC W/AUTO [id number] 06:09:00 Test Item Value Reference Range Interpretation [...] code NO = MDIFF) POC ARTERIAL BLOOD [id number] 05:17:00 Test Item Value Reference Range Interpretation Comments POC ARTERIAL BLOOD GAS PH (test 7.380 7.35-7.45 N code = POCPHA) POC ARTERIAL BLOOD GAS PCO2 38.9 mmHg 35.0-45 N (test code = VUAJKB7Z) POC TCO2 ARTERIAL (test code = 24.2 POCTCO2) POC ARTERIAL BLOOD GAS PO2 (test 78.3 mmHg 80-100.0 L code = SEPFK3Y) POC HCO3 ARTERIAL (test code = 23.0 MMOL/L 22.0-26.0 N VHKHXQ1W) POC BASE EXCESS (test code = -2.0 MMOL/L -4.0-4.0 N POCBEA) POC O2 SATURATION (test code = 95.2 % 90-100 N POCO2S) FIO2 (test code = FIO2A) 28 % PaO2/FiO2 (test code = EUK0ZMK3) 279.64 mm/Hg ABG DELIVERY (test code = LELO) HFNC ABG SITE (test code = SITEA) Art Line BASIC METABOLIC [id number] 05:17:00 Test Item Value Reference Range Interpretation [...] = POCGLU) 118 MG/DL 70-110 H HEMOGLOBIN [id number] 05:17:00 Test Item Value Reference Range Interpretation Comments HEMOGLOBIN ABG (test code = HGB/ABG) 8.1 G/DL 12.5-16.9 L [id number] 05:17:00 Test Item Value Reference Range Interpretation Comments HEMATOCRIT (test code = HCT/ABG) 24 % 37.5-50.7 L POC LACTIC [id number] 05:17:00 Test Item Value Reference Range Interpretation Comments POC LACTIC ACID (test code = 0.9 mmol/l 0.9-1.7 N POCLAC) BASIC METABOLIC [id number] 03:43:00 Test Item Value Reference Range Interpretation [...] the recommended for philipp for GFRby the [facility] Foundati on for Adults.The GFR will not calculate if th e sex is unknown or if thepatient's ag e is <18 years. CREATININE (test 0.9 mg/dL 0.6-1.3 N code = CREAT) CALCIUM (test code = 8.1 mg/dL 8.0-10.5 N CA) COMMENTS: POD #1HEPATIC FUNCTION [id number] 03:43:00 Test Item Value Reference Range Interpretation [...] 20-125 N code = ALKP) COMMENTS: POD #[id number] 03:43:00 Test Item Value Reference Range Interpretation Comments MAGNESIUM (test code = MAG) 2.10 mg/dL 1.80-2.40 COMMENTS: POD #1CALCIUM [id number] 03:15:00 Test Item Value Reference Range Interpretation Comments CALCIUM IONIZED (test code = DONOVAN) 1.09 MMOL/L 1.09-1.30 N CBC W/AUTO [id number] 02:59:00 Test Item Value Reference Range Interpretation [...] REQUIRED (test code NO = MDIFF) GLUCOSE [id number] 01:38:00 Test Item Value Reference Range Interpretation Comments GLUCOSE BEDSIDE (test 137 MG/DL 70-110 H Perfor med by certified code = GLUBED) computer numerical control operator at [facility] - XR CHEST 1 [id number] 00:00:00 [facility] MON[facility] VAL[facility] : 1940 Sex: M FAX: Kathya Hassan [phone] [place]: St: ADM FAX: Analilia Crowell [facility] [phone] Name: MONICA BECK [facility] : 1940 Age/S: 82/M [address] [place] [address] Unit #: [id number] Loc: G.2204 [place] [address] Phys: Analilia Erwin Physic Acct: [id number] Dis Date: Status: ADM IN PHONE #: [phone] Exam Date: 09/27/2022 0504 FAX #: [phone] Reason: Cardiac Surgery Post Op EXAMS: CPT CODE: [id number] XR CHEST 1 V 71558 PROCEDURE INFORMATION: Exam: XR Chest Exam date and time: 09/27/2022 5:07 AM Age: 82 years old Clinical indication: Other: Cardiac surgery post op TECHNIQUE: Imaging protocol: Radiologic exam of the chest. Views: 1 view. COMPARISON: CR XR CHEST 1V 09/26/2022 4:24 PM FINDINGS: Tubes, catheters and devices: Right neck dialysis catheter tip is positioned over theproximal SVC region. Lungs: Lung volumes are decreased. [...] Erwin Technologist: RT Twin(Darin) Trnscrd Date/Time/By: 09/27/2022 (46) : By: [email or web address] Orig Print D/T: S: 09/27/2022 (6818) PAGE 1 Signed ReportGLUCOSE [id number] 23:38:00 Test Item Value Reference Range Interpretation Comments GLUCOSE BEDSIDE (test 150 MG/DL 70-110 H Perfor med by certified code = GLUBED) computer numerical control operator at [facility] POC ARTERIAL BLOOD [id number] 20:46:00 Test Item Value Reference Range Interpretation Comments POC ARTERIAL BLOOD GAS PH (test 7.373 7.35-7.45 N code = POCPHA) POC ARTERIAL BLOOD GAS PCO2 35.2 mmHg 35.0-45 N (test code = MEGGXV6V) POC TCO2 ARTERIAL (test code = 21.6 POCTCO2) POC ARTERIAL BLOOD GAS PO2 (test 87.7 mmHg 80-100.0 N code = LQOXQ6V) POC HCO3 ARTERIAL (test code = 20.5 MMOL/L 22.0-26.0 L VROHKB6N) POC BASE EXCESS (test code = -4.3 MMOL/L -4.0-4.0 L POCBEA) POC O2 SATURATION (test code = 96.6 % 90-100 N POCO2S) FIO2 (test code = FIO2A) 36 % PaO2/FiO2 (test code = MZK8YDH7) 243.61 mm/Hg ABG DELIVERY (test code = LELO) HFNC ABG SITE (test code = SITEA) Art Line BASIC METABOLIC [id number] 20:46:00 Test Item Value Reference Range Interpretation [...] = POCGLU) 172 MG/DL 70-110 H HEMOGLOBIN [id number] 20:46:00 Test Item Value Reference Range Interpretation Comments HEMOGLOBIN ABG (test code = HGB/ABG) 8.5 G/DL 12.5-16.9 L [id number] 20:46:00 Test Item Value Reference Range Interpretation Comments HEMATOCRIT (test code = HCT/ABG) 25 % 37.5-50.7 L POC LACTIC [id number] 20:46:00 Test Item Value Reference Range Interpretation Comments POC LACTIC ACID (test code = 1.5 mmol/l 0.9-1.7 N POCLAC) GLUCOSE [id number] 18:40:00 Test Item Value Reference Range Interpretation Comments GLUCOSE BEDSIDE (test 150 MG/DL 70-110 H Perfor med by certified code = GLUBED) computer numerical control operator at [facility] POC ARTERIAL BLOOD [id number] 17:17:00 Test Item Value Reference Range Interpretation Comments POC ARTERIAL BLOOD GAS PH (test 7.334 7.35-7.45 L code = POCPHA) POC ARTERIAL BLOOD GAS PCO2 (test 43.6 mmHg 35.0-45 N code = UGJGFN8C) POC TCO2 ARTERIAL (test code = 24.6 POCTCO2) POC ARTERIAL BLOOD GAS PO2 (test 78.1 mmHg 80-100.0 L code = WTCLL5Y) POC HCO3 ARTERIAL (test code = 23.3 MMOL/L 22.0-26.0 N TYFMIR0A) POC BASE EXCESS (test code = -2.7 MMOL/L -4.0-4.0 N POCBEA) POC O2 SATURATION (test code = 94.7 % 90-100 N POCO2S) ABG DELIVERY (test code = LELO) HFNC ABG TEMPERATURE (test code = 98 F TEMPA) BASIC METABOLIC [id number] 17:17:00 Test Item Value Reference Range Interpretation [...] = POCGLU) 99 MG/DL 70-110 N HEMOGLOBIN [id number] 17:17:00 Test Item Value Reference Range Interpretation Comments HEMOGLOBIN ABG (test code = HGB/ABG) 8.7 G/DL 12.5-16.9 L [id number] 17:17:00 Test Item Value Reference Range Interpretation Comments HEMATOCRIT (test code = HCT/ABG) 25 % 37.5-50.7 L GLUCOSE [id number] 17:17:00 Test Item Value Reference Range Interpretation Comments GLUCOSE BEDSIDE (test 49 MG/DL 70-110 L Perfor med by certified code = GLUBED) computer numerical control operator at [facility] BASIC METABOLIC [id number] 17:08:00 Test Item Value Reference Range Interpretation [...] 8.5 mg/dL 8.0-10.5 N CA) COMMENTS: On [id number] 17:08:00 Test Item Value Reference Range Interpretation Comments MAGNESIUM (test code = MAG) 2.80 mg/dL 1.80-2.40 H COMMENTS: On arrivalPROTHROMBIN [id number] 17:01:00 Test Item Value Reference Range Interpretation [...] recurrent infar ct). COMMENTS: On arrivalTHROMBOPLASTIN TIME [id number] 17:01:00 Test Item Value Reference Range Interpretation Comments THROMBOPLASTIN TIME 40.7 Seconds 25.0-39.5 H Therape utic Range: PARTIAL (test code = 50.4 - 88.3 Seconds PTT) Effective 09/04/2018 COMMENTS: On arrivalPOC ARTERIAL BLOOD [id number] 16:58:00 Test Item Value Reference Range Interpretation Comments POC ARTERIAL BLOOD GAS PH (test 7.344 7.35-7.45 L code = POCPHA) POC ARTERIAL BLOOD GAS PCO2 (test 43.6 mmHg 35.0-45 N code = NQREYA4N) POC TCO2 ARTERIAL (test code = 25.0 POCTCO2) POC ARTERIAL BLOOD GAS PO2 (test 100.5 mmHg 80-100.0 H code = OZJSG1R) POC HCO3 ARTERIAL (test code = 23.7 MMOL/L 22.0-26.0 N ZANQIZ7S) POC BASE EXCESS (test code = -2.0 MMOL/L -4.0-4.0 N POCBEA) POC O2 SATURATION (test code = 97.4 % 90-100 N POCO2S) ABG DELIVERY (test code = LELO) Cannula ABG SITE (test code = SITEA) Art Line BASIC METABOLIC [id number] 16:58:00 Test Item Value Reference Range Interpretation [...] = POCGLU) 116 MG/DL 70-110 H HEMOGLOBIN [id number] 16:58:00 Test Item Value Reference Range Interpretation Comments HEMOGLOBIN ABG (test code = HGB/ABG) 8.7 G/DL 12.5-16.9 L [id number] 16:58:00 Test Item Value Reference Range Interpretation Comments HEMATOCRIT (test code = HCT/ABG) 26 % 37.5-50.7 L POC LACTIC [id number] 16:58:00 Test Item Value Reference Range Interpretation Comments POC LACTIC ACID (test code = 2.5 mmol/l 0.9-1.7 H POCLAC) CBC W/AUTO [id number] 16:52:00 Test Item Value Reference Range Interpretation [...] (test NO code = MDIFF) COMMENTS: On [id number] 15:30:00 Test Item Value Reference Range Interpretation Comments ACT-ISTAT (test code 143 SEC 74-137 H Perform ed by certified = ACTI) computer numerical control operator at [facility] POC ARTERIAL BLOOD [id number] 15:30:00 Test Item Value Reference Range Interpretation Comments POC ARTERIAL BLOOD GAS PH (test 7.278 7.35-7.45 LL code = POCPHA) POC ARTERIAL BLOOD GAS PCO2 (test 52.5 mmHg 35.0-45 HH code = WFSZGN6L) POC TCO2 ARTERIAL (test code = 26.2 POCTCO2) POC ARTERIAL BLOOD GAS PO2 (test 92.6 mmHg 80-100.0 N code = XWBRS2I) POC HCO3 ARTERIAL (test code = 24.6 MMOL/L 22.0-26.0 N CYBCWG6W) POC BASE EXCESS (test code = -2.4 MMOL/L -4.0-4.0 N POCBEA) POC O2 SATURATION (test code = 95.9 % 90-100 N POCO2S) BASIC METABOLIC [id number] 15:30:00 Test Item Value Reference Range Interpretation [...] = POCGLU) 144 MG/DL 70-110 H HEMOGLOBIN [id number] 15:30:00 Test Item Value Reference Range Interpretation Comments HEMOGLOBIN ABG (test code = HGB/ABG) 8.8 G/DL 12.5-16.9 L [id number] 15:30:00 Test Item Value Reference Range Interpretation Comments HEMATOCRIT (test code = HCT/ABG) 26 % 37.5-50.7 L POC LACTIC [id number] 15:30:00 Test Item Value Reference Range Interpretation Comments POC LACTIC ACID (test code = 1.4 mmol/l 0.9-1.7 N POCLAC) [id number] 14:17:00 Test Item Value Reference Range Interpretation Comments ACT-ISTAT (test code 756 SEC 74-137 H Perform ed by certified = ACTI) computer numerical control operator at [facility] POC ARTERIAL BLOOD [id number] 14:02:00 Test Item Value Reference Range Interpretation Comments POC ARTERIAL BLOOD GAS PH (test 7.400 7.35-7.45 N code = POCPHA) POC ARTERIAL BLOOD GAS PCO2 (test 40.0 mmHg 35.0-45 N code = AOUGCQ3P) POC TCO2 ARTERIAL (test code = 26.0 POCTCO2) POC ARTERIAL BLOOD GAS PO2 (test 394.9 mmHg 80-100.0 HH code = JLKJU3O) POC HCO3 ARTERIAL (test code = 24.8 MMOL/L 22.0-26.0 N TPOMLG9V) POC BASE EXCESS (test code = 0.0 MMOL/L -4.0-4.0 N POCBEA) POC O2 SATURATION (test code = 100.0 % 90-100 N POCO2S) BASIC METABOLIC [id number] 14:02:00 Test Item Value Reference Range Interpretation [...] = POCGLU) 145 MG/DL 70-110 H HEMOGLOBIN [id number] 14:02:00 Test Item Value Reference Range Interpretation Comments HEMOGLOBIN ABG (test code = HGB/ABG) 9.7 G/DL 12.5-16.9 L [id number] 14:02:00 Test Item Value Reference Range Interpretation Comments HEMATOCRIT (test code = HCT/ABG) 29 % 37.5-50.7 L POC LACTIC [id number] 14:02:00 Test Item Value Reference Range Interpretation Comments POC LACTIC ACID (test code = 0.9 mmol/l 0.9-1.7 N POCLAC) [id number] 13:55:00 Test Item Value Reference Range Interpretation Comments ACT-ISTAT (test code 817 SEC 74-137 H Perform ed by certified = ACTI) computer numerical control operator at [facility] POC ARTERIAL BLOOD [id number] 13:40:00 Test Item Value Reference Range Interpretation Comments POC ARTERIAL BLOOD GAS PH (test 7.446 7.35-7.45 N code = POCPHA) POC ARTERIAL BLOOD GAS PCO2 (test 34.0 mmHg 35.0-45 L code = WIKXPF0M) POC TCO2 ARTERIAL (test code = 24.5 POCTCO2) POC ARTERIAL BLOOD GAS PO2 (test 417.0 mmHg 80-100.0 HH code = EMJEM5T) POC HCO3 ARTERIAL (test code = 23.4 MMOL/L 22.0-26.0 N ZUKDSR5C) POC BASE EXCESS (test code = -0.3 MMOL/L -4.0-4.0 N POCBEA) POC O2 SATURATION (test code = 100.0 % 90-100 N POCO2S) BASIC METABOLIC [id number] 13:40:00 Test Item Value Reference Range Interpretation [...] = POCGLU) 152 MG/DL 70-110 H HEMOGLOBIN [id number] 13:40:00 Test Item Value Reference Range Interpretation Comments HEMOGLOBIN ABG (test code = 10.0 G/DL 12.5-16.9 L HGB/ABG) [id number] 13:40:00 Test Item Value Reference Range Interpretation Comments HEMATOCRIT (test code = HCT/ABG) 30 % 37.5-50.7 L POC LACTIC [id number] 13:40:00 Test Item Value Reference Range Interpretation Comments POC LACTIC ACID (test code = 0.9 mmol/l 0.9-1.7 N POCLAC) [id number] 13:17:00 Test Item Value Reference Range Interpretation Comments ACT-ISTAT (test code 883 SEC 74-137 H Perform ed by certified = ACTI) computer numerical control operator at [facility] POC ARTERIAL BLOOD [id number] 13:03:00 Test Item Value Reference Range Interpretation Comments POC ARTERIAL BLOOD GAS PH (test 7.422 7.35-7.45 N code = POCPHA) POC ARTERIAL BLOOD GAS PCO2 (test 39.8 mmHg 35.0-45 N code = BDFZQR9Q) POC TCO2 ARTERIAL (test code = 27.1 POCTCO2) POC ARTERIAL BLOOD GAS PO2 (test 525.6 mmHg 80-100.0 HH code = SAGJA0H) POC HCO3 ARTERIAL (test code = 25.9 MMOL/L 22.0-26.0 N JPLSYS2E) POC BASE EXCESS (test code = 1.4 MMOL/L -4.0-4.0 N POCBEA) POC O2 SATURATION (test code = 100.0 % 90-100 N POCO2S) BASIC METABOLIC [id number] 13:03:00 Test Item Value Reference Range Interpretation [...] = POCGLU) 169 MG/DL 70-110 H HEMOGLOBIN [id number] 13:03:00 Test Item Value Reference Range Interpretation Comments HEMOGLOBIN ABG (test code = HGB/ABG) 9.8 G/DL 12.5-16.9 L [id number] 13:03:00 Test Item Value Reference Range Interpretation Comments HEMATOCRIT (test code = HCT/ABG) 29 % 37.5-50.7 L POC LACTIC [id number] 13:03:00 Test Item Value Reference Range Interpretation Comments POC LACTIC ACID (test code = 0.5 mmol/l 0.9-1.7 L POCLAC) [id number] 12:38:00 Test Item Value Reference Range Interpretation Comments ACT-ISTAT (test code 733 SEC 74-137 H Perform ed by certified = ACTI) computer numerical control operator at [facility] POC ARTERIAL BLOOD [id number] 12:29:00 Test Item Value Reference Range Interpretation Comments POC ARTERIAL BLOOD GAS PH (test 7.185 7.35-7.45 LL code = POCPHA) POC ARTERIAL BLOOD GAS PCO2 (test 67.2 mmHg 35.0-45 HH code = KVTHCQ9N) POC TCO2 ARTERIAL (test code = 27.4 POCTCO2) POC ARTERIAL BLOOD GAS PO2 (test 106.2 mmHg 80-100.0 H code = [id number]) POC HCO3 ARTERIAL (test code = 25.4 MMOL/L 22.0-26.0 N [id number]) POC BASE EXCESS (test code = -4.2 MMOL/L -4.0-4.0 L POCBEA) POC O2 SATURATION (test code = 96.2 % 90-100 N POCO2S) BASIC METABOLIC [id number] 12:29:00 Test Item Value Reference Range Interpretation [...] = POCGLU) 193 MG/DL 70-110 H HEMOGLOBIN [id number] 12:29:00 Test Item Value Reference Range Interpretation Comments HEMOGLOBIN ABG (test code = 13.5 G/DL 12.5-16.9 N HGB/ABG) [id number] 12:29:00 Test Item Value Reference Range Interpretation Comments HEMATOCRIT (test code = HCT/ABG) 40 % 37.5-50.7 N POC LACTIC [id number] 12:29:00 Test Item Value Reference Range Interpretation Comments POC LACTIC ACID (test code = 0.7 mmol/l 0.9-1.7 L POCLAC) [id number] 11:26:00 Test Item Value Reference Range Interpretation Comments ACT-ISTAT (test code 149 SEC 74-137 H Perform ed by certified = ACTI) computer numerical control operator at [facility] POC ARTERIAL BLOOD [id number] 11:13:00 Test Item Value Reference Range Interpretation Comments POC ARTERIAL BLOOD GAS PH (test 7.463 7.35-7.45 H code = POCPHA) POC ARTERIAL BLOOD GAS PCO2 (test 34.1 mmHg 35.0-45 L code = [id number]) POC TCO2 ARTERIAL (test code = 25.5 POCTCO2) POC ARTERIAL BLOOD GAS PO2 (test 563.7 mmHg 80-100.0 HH code = SWUYP0O) POC HCO3 ARTERIAL (test code = 24.4 MMOL/L 22.0-26.0 N [id number]) POC BASE EXCESS (test code = 1.1 MMOL/L -4.0-4.0 N POCBEA) POC O2 SATURATION (test code = 100.0 % 90-100 N POCO2S) BASIC METABOLIC [id number] 11:13:00 Test Item Value Reference Range Interpretation [...] = POCGLU) 115 MG/DL 70-110 H HEMOGLOBIN [id number] 11:13:00 Test Item Value Reference Range Interpretation Comments HEMOGLOBIN ABG (test code = 13.9 G/DL 12.5-16.9 N HGB/ABG) [id number] 11:13:00 Test Item Value Reference Range Interpretation Comments HEMATOCRIT (test code = HCT/ABG) 41 % 37.5-50.7 N POC LACTIC [id number] 11:13:00 Test Item Value Reference Range Interpretation Comments POC LACTIC ACID (test code = 0.4 mmol/l 0.9-1.7 L POCLAC) B-TYPE NATRIURETIC [id number] 09:24:00 Test Item Value Reference Range Interpretation Comments B-TYPE NATRIURETIC PEPTIDE (test 331.0 PG/ML 0-100 H code = BNP) HGBA1C%2022-09-26 08:57:00 Test Item Value Reference Range Interpretation Comments HGBA1C% (test code = HGBA1C%) 6.8 %A1C 4.8-6.0 H GLUCOSE [id number] 08:46:00 Test Item Value Reference Range Interpretation Comments GLUCOSE BEDSIDE (test 202 MG/DL 70-110 H Perfor med by certified code = GLUBED) computer numerical control operator at [facility] COMPREHENSIVE METABOLIC [id number] 08:14:00 Test Item Value Reference Range Interpretation [...] (test code = LDL) NEAR OPTIM AL/ABOVE [id number] 89 HIGH>DQ=511 CHARLES Y HIGH*Guidelines provided by the [facility] terol EducationP[facility]ation[facility] Adult Treatment Panel III CBC W/AUTO [id number] 08:11:00 Test Item Value Reference Range Interpretation [...] = MDIFF) COMMENTS: Daily while on HeparinPROTHROMBIN [id number] 05:54:00 Test Item Value Reference Range Interpretation [...] (to prevent recurrent infar ct). THROMBOPLASTIN TIME [id number] 05:54:00 Test Item Value Reference Range Interpretation Comments THROMBOPLASTIN TIME 48.1 Seconds 25.0-39.5 H Therape utic Range: PARTIAL (test code = 50.4 - 88.3 Seconds PTT) Effective 09/04/2018 - XR CHEST 1 [id number] 00:00:00 [facility] : 1940 Sex: M FAX: Kathya Hassan [phone] [place]: St: ADM FAX: Analilia Crowell [facility] [phone] Name: MONICA BECK [facility] : 1940 Age/S: 82/M [address] [place] [address] Bl Unit #: [id number] Loc: G.2204 [place] [address] Phys: Analilia Erwin Physic Acct: [id number] Dis Date: Status: ADM IN PHONE #: [phone] Exam Date: 09/26/2022 1627 FAX #: [phone] Reason: Cardiac Surgery Post Op EXAMS: CPT CODE: [id number] XR CHEST 1 V [id number] PROCEDURE INFORMATION: Exam: XR Chest Exam date and time: 09/26/2022 4:24 PM Age: 82 years old Clinical indication: Device placement; Other: Cardiac surgery post op TECHNIQUE: Imaging protocol: Radiologic exam of the chest. Views: 1 view. COMPARISON: No relevant prior studies available. FINDINGS: Tubes, catheters and devices: Right neck dialysis catheter tipis positioned over the proximal SVC region. Mediastinal drainage catheter demonstrated. Lungs: Lung volumes are decreased. Moderate degree bilateral perihilar and basilar interstitial alveolar pulmonary edema versus infiltrates, pneumonia within the lungs. Bilateral pulmonary opacities are most prominent within the lower lungs. Pleural spaces: Small volume bilateral pleural effusions. Heart/Mediastinum: Cardiac silhouette appears moderately enlarged. Bones/joints: Sternotomy wires, hardware is demo nstrated. Generalized bony degenerative changes. Soft tissues: This study is limited by patient's body habitus. IMPRESSION: 1. Small bilateral pleural effusions. 2. Moderate pulmonary edema versus infiltrates, pneumonia. 3. Moderate enlarged cardiac silhouette. at 1730 Reported and signed by: Nayan Jacobsen M.D. CC:Kathya Maria MD; Analilia Erwin Technologist: Ana Trinidad RT(R); RT Christopher(R) Trnscrd Date/Time/By: 09/26/2022 (2996) : By: [email or web address] Orig Print D/T: S: 09/26/2022 (1414) PAGE 1 Signed ReportGLUCOSE [id number] 22:06:00 Test Item Value Reference Range Interpretation Comments GLUCOSE BEDSIDE (test 158 MG/DL 70-110 H Perfor med by certified code = GLUBED) computer numerical control operator at [facility] THROMBOPLASTIN TIME [id number] 21:09:00 Test Item Value Reference Range Interpretation Comments THROMBOPLASTIN TIME 73.6 Seconds 25.0-39.5 H Therape utic Range: PARTIAL (test code = 50.4 - 88.3 Seconds PTT) Effective 09/04/2018 GLUCOSE [id number] 18:40:00 Test Item Value Reference Range Interpretation Comments GLUCOSE BEDSIDE (test 119 MG/DL 70-110 H Perfor med by certified code = GLUBED) computer numerical control operator at [facility] GLUCOSE [id number] 15:22:00 Test Item Value Reference Range Interpretation Comments GLUCOSE BEDSIDE (test 168 MG/DL 70-110 H Perfor med by certified code = GLUBED) computer numerical control operator at [facility] GLUCOSE [id number] 15:22:00 Test Item Value Reference Range Interpretation Comments GLUCOSE BEDSIDE (test 239 MG/DL 70-110 H Perfor med by certified code = GLUBED) computer numerical control operator at [facility] GLUCOSE [id number] 15:22:00 Test Item Value Reference Range Interpretation Comments GLUCOSE BEDSIDE (test 102 MG/DL 70-110 N Perfor med by certified code = GLUBED) computer numerical control operator at [facility] THROMBOPLASTIN TIME [id number] 13:27:00 Test Item Value Reference Range Interpretation Comments THROMBOPLASTIN TIME 88.4 Seconds 25.0-39.5 H Therape utic Range: PARTIAL (test code = 50.4 - 88.3 Seconds PTT) Effective 09/04/2018 CBC W/AUTO [id number] 08:45:00 Test Item Value Reference Range Interpretation [...] (test code NO = MDIFF) BASIC METABOLIC [id number] 07:36:00 Test Item Value Reference Range Interpretation [...] = 8.2 mg/dL 8.0-10.5 N CA) URINALYSIS [id number] 07:27:00 Test Item Value Reference Range Interpretation [...] MUCU) TRACE /LPF NONE SEEN THROMBOPLASTIN TIME [id number] 06:50:00 Test Item Value Reference Range Interpretation Comments THROMBOPLASTIN TIME 54.3 Seconds 25.0-39.5 H Therape utic Range: PARTIAL (test code = 50.4 - 88.3 Seconds PTT) Effective 09/04/2018 COVID 19 Asymptomatic IH [id number] 05:43:00 Test Item Value Reference Range Interpretation [...] high or waivedcomplexit y tests. THROMBOPLASTIN TIME [id number] 00:19:00 Test Item Value Reference Range Interpretation Comments THROMBOPLASTIN TIME 70.3 Seconds 25.0-39.5 H Therape utic Range: PARTIAL (test code = 50.4 - 88.3 Seconds PTT) Effective 09/04/2018 GLUCOSE [id number] 21:09:00 Test Item Value Reference Range Interpretation Comments GLUCOSE BEDSIDE (test 167 MG/DL 70-110 H Perfor med by certified code = GLUBED) computer numerical control operator at [facility] GLUCOSE [id number] 21:09:00 Test Item Value Reference Range Interpretation Comments GLUCOSE BEDSIDE (test 172 MG/DL 70-110 H Perfor med by certified code = GLUBED) computer numerical control operator at [facility] THROMBOPLASTIN TIME [id number] 17:27:00 Test Item Value Reference Range Interpretation Comments THROMBOPLASTIN TIME 68.8 Seconds 25.0-39.5 H Therape utic Range: PARTIAL (test code = 50.4 - 88.3 Seconds PTT) Effective 09/04/2018 GLUCOSE [id number] 16:32:00 Test Item Value Reference Range Interpretation Comments GLUCOSE BEDSIDE (test 169 MG/DL 70-110 H Perfor med by certified code = GLUBED) computer numerical control operator at [facility] THROMBOPLASTIN TIME [id number] 11:00:00 Test Item Value Reference Range Interpretation Comments THROMBOPLASTIN TIME 139.2 Seconds 25.0-39.5 H Therap eutic PARTIAL (test code = Range: 50.4 - 88.3 PTT) Seconds Effective 09/04/2018 LIPOPROTEIN [id number] 04:15:00 Test Item Value Reference Range Interpretation Comments LIPOPROTEIN LDL 40.0 mg/dL 0-100 N <100 OPTIMAL 100-129 NEAR (test code = LDL) OPTIMAL/AB OVE [id number] 89 HIGH>GC=064 CHARLES Y HIGH*Guidelines provided by the National Cholesterol EducationProgra m Adult Treatment Panel III TROP-I HIGH [id number] 03:54:00 Test Item Value Reference Range Interpretation [...] HGBA1C%) 6.8 %A1C 4.8-6.0 H BASIC METABOLIC [id number] 03:54:00 Test Item Value Reference Range Interpretation [...] the recommended for philipp for GFRby the [facility] on for Adults.The GFR will not calculate if th e sex is unknown or if thepatient's ag e is <18 years. CREATININE (test 1.0 mg/dL 0.6-1.3 N code = CREAT) CALCIUM (test code = 8.2 mg/dL 8.0-10.5 N CA) THROMBOPLASTIN TIME [id number] 03:52:00 Test Item Value Reference Range Interpretation Comments THROMBOPLASTIN TIME 84.7 Seconds 25.0-39.5 H Therape utic Range: PARTIAL (test code = 50.4 - 88.3 Seconds PTT) Effective 09/04/2018 CBC W/AUTO [id number] 03:40:00 Test Item Value Reference Range Interpretation [...] DONE WITHIN LAST 24 HOURS- DUP VEIN [id number] 00:00:00[facility] : 1940 Sex: M Name: MONICA BECK [facility] : 1940 Age/S: 82 / M [address] [place] [address] Blvd Unit #: [id number] Loc: [place] [address] Phys: Alexandra Vicente ROUNDING MACHINE TENDER Acct: [id number] Dis Date:Status: ADM IN PHONE #: [phone] Exam Date: 09/24/2022 1654 FAX #: [phone] Reason: PRE CABGEVAL EXAMS: CPT CODE: [id number] [facility] VEIN [place] [address] PROCEDURE INFORMATION: Exam: US Duplex Lower Extremity Veins, Bilateral Exam date and time: 09/24/2022 1:43 PM Age: 82 years old Clinical indication: Condition or disease; Other: Cad; Additional info: Pre cabg eval TECHNIQUE: Imaging protocol: Real-time duplex ultrasound of the bilateral extremities with 2-D chisholm scale, color Doppler flow and spectralwaveform analysis including responses to compression and other maneuvers (when performed) with imagedocumentation. Complete exam focused on the lower extremity [...] Technologist: Rosalie Koenig RDMS(AB) Trnscb Date/Time: 09/24/2022 (1840)ShraddhaR.SG9 Orig Print D/T: S: 09/24/2022 (1840) Probe: PAGE 1 Signed Report- DUP EXTRACRANIAL [id number] 00:00:00[facility] : 1940 Sex: M Name: MONICA BECK [facility] Julianne Jackson : 1940 Age/S: 82 / M [address] [place] [address] Unit #: [id number] Loc: [place] [address] Phys: Alexandra Vicente NP Acct: [id number] Dis Date: Status: ADM IN PHONE #: [phone] Exam Date: 09/24/2022 3814 FAX #: [phone] Reason: pre cabg e papa EXAMS: CPT CODE: [id number] DUP EXTRACRANIAL [place]LE[place] [address] PROCEDURE INFORMATION: Exam: US Duplex Bilateral Extracranial Arteries, Carotid Arteries Exam date and time: 09/24/2022 1:30 PM Age: 82 years old Clinical indication: Condition or disease; Other: Cad; Additional info: Pre cabg eval TECHNIQUE: Linh ging protocol: Real-time Duplex ultrasound scan of the [...] ratio: 1.3 Vertebral flow is antegrade. LEFT: Gkxc-jy-dgjdbcbn plaque formation is identified. ICA PSV: 116 cm/s CCA PSV: 113 cm/s ICA/CCA ratio: 1 Vertebral flow is antegrade. IMPRESSION: 1. RIGHT: Carotid artery stenosis estimated at less than 50% 2. LEFT: Carotid artery stenosis estimated at less than 50% at 1842 Reported and signed by: Mikey Salmon M.D. CC: Kathya Maria MD; Alexandra Christie NP Technologist: Rosalie Koenig RDMS(AB) Trnscb Date/Time: 09/24/2022 (1841) [email or web address].[id number] Orig Print D/T: S: 09/24/2022 (1841) Probe: PAGE 1 Signed Report Notes Date/Time Note Provider Source 2022-10-28 19:17:00-00:00 [id number] [place] [address] PATIENT NAME: MONICA BECK ADMIT DATE: 0 09/24/22 ACCOUNT NO: [id number] ROOM NO: 336 AGE: 82 REPORT TYPE: 360 - QUERY RESPONSE DOCUMENT SEX: M ADMITTING PHYSICIAN:Kathya Maria MD ATTENDING PHYSICIAN:Kathya Maria MD Provider Query QUERY TEXT: Type Heart Failure 360MD Query related questions should be directed to: [phone] The medical record reflects the diagnosis of [...] PATIENT NAME: MONICA BECK ACCOUNT #: [id number] 2022-10-25 18:00:00-00:00 [id number] [place] [address] PATIENT NAME: MONICA BECK ADMIT DATE: 09/24/22 ACCOUNT NO: [id number] ROOM NO: G.3362 AGE: 82 REPORT TYPE: 360 - QUERY RESPONSE DOCUMENT SEX: M ADMITTING PHYSICIAN:Kathya Maria MD ATTENDING PHYSICIAN:Kathya Maria MD Provider Query QUERY TEXT: Specificity General 360MD Query related questions should be directed to:[place] [facility] Coding Query Helpline Please provide any known [...] PATIENT NAME: MONICA BECK ACCOUNT #: [id number] 2022-10-18 16:57:00-00:00 [id number] [place] [address] PATIENT NAME: MONICA BECK ADMIT DATE: 0 09/24/22 ACCOUNT NO: [id number] ROOM NO: G.3362 AGE: 82 REPORT TYPE: 360 - QUERY RESPONSE DOCUMENT SEX: M ADMITTING PHYSICIAN:Kathya Maria MD ATTENDING PHYSICIAN:Kathya Maria MD Provider Query QUERY TEXT: Condition General 360MD Query related questions should be directed to:Christopher corrigan [facility] Coding Query Helpline Based on your clinical judgement, can you please clarify if Pneumonia was confirmed, Pneumonia not confirmed , or other more appropriate diagnosis? The patient's Clinical Indicators include: Pneumonia-Hospitalist progress note 10/05/2022 cefazolin-MAR Small left pleural effusion.-Hospitalist progres s note 10/05/2022 Options provided: -- Respond [...] PATIENT NAME: MONICA BECK ACCOUNT #: [id number] 2022-10-05 13:18:00-00:00 [id number] [place] [address] PATIENT NAME: MONICA BECK ADMIT DATE: 09/24/22 ACCOUNT NO: [id number] ROOM NO: [facility] AGE: 82 REPORT TYPE: eECHOCARDIOGRAM REPORT SEX: M ADMITTING PHYSICIAN:Kathya Maria MD ATTENDING PHYSICIAN:Kathya Maria MD *[place] [address] Limited Transthoracic Echocardiogram Patient: Monica Beck Study Date: 10/04/2022 BP: 107 / 55 Location: [facility] URN: [id number] 2526 : 1940 Age: 82 Height: 64 in / 162.6 cm Gender: M Weight: 168 .6 lb / 76.7 kg BMI/BSA: 29 kg/m 2 / 1.88 m 2 *Ordering Physician: * Analilia Erwin Physic *Interpreting Physician: * Ana Luna MD *Carpet Or Rug Layer Helper: * Allyssa Siegel Indications: R/O PERICARDIAL EFFUSION. Study data: Transthoracic echocardiogram, limite d study. Procedure: Transthoracic echocardiography was performed. Im ages were obtained using a Blued cardiac ultrasound machine. Image quality w as fair. Limited 2D and limited spectral Doppler. Location: Bedside. [facility] status: Inpatient. Patient room number: [...] PATIENT NAME: MONICA BECK ACCOUNT #: [id number] Right ventricle: Systolic function is normal. Sy stolic pressure is increased. Ventricular septum: Septal motion is paradoxica l. Tricuspid valve: There is mild regurgitation. Pericardium: [...] ratio PATIENT NAME: MONICA BECK ACCOUNT #: [id number] Tricuspid valve Value 09/29/2022 Ref TR peak [...] effusion. Prepared and electronically signed by Ana Luna MD 10/05/2022 13:18 Electronically Signed by Ana Lnua MD on 0 10/05/22 at 1318 PATIENT NAME: MONICA BECK ACCOUNT #: [id number] 2022-10-05 10:51:00-00:00 [facility] [place] Hospitalist Progress Note REPORT#:[id number] REPORT STATUS: Signed DATE:10/05/22 TIME: 1051 PATIENT: MONICA BECK UNIT #: [id number] ROOM/BED: [place] [address] : [birth year] AGE: 82 SEX: M ATTEND: Nicolasa Maria MD ADM AUTHOR: Charlotte Fitzpatrick MD * ALL edits or amendments must be made on the [employer]/computer document * Subjective Chief complaint: doing fine, [...] Human Lispro (HUMALOG) 0 Q6HR SUBQ Ipratropium [place] (ATROVENT) 500 MCG RTQ2H PRN PRN INH [...] soft Extremities: no edema Musculoskeletal: normal inspection Neuro/BOTTOM BUFFER: no motor deficits Skin: normal color Psychiatry: [...] (Auto) (14.0 - 32.0 %) 13.0 L [place] % (Auto) (4.8 - 9.0 %) 6.9 Eos % (Auto) (0.3 - 3.7 %) 2.1 Baso % (Auto) (0.0 - 2.0 %) 0.1 Neut # (Auto) (2.0 - 7.6 x10 3/uL) 6.51 Lymph # (Auto) (1.0 - 3.8 x10 3/uL) 1.10 [place] # (Auto) (0.1 - 0.8 x10 3/uL) [...] Extremities: no clubbing, no cyanosis, no edema Neuro/BOTTOM BUFFER: alert, oriented X 3, CNII-XII intact Skin: [...] an advanced directive His medical power of prosecuting attorney is son [place] de [place] ve[place] [...] . pending CTS clearance at 1054 RPT #:[id number] END OF REPORT 2022-10-05 09:29:00-00:[address] [facility] ([facility]) Cardiology Progress Note REPORT#:[id number] REPORT STATUS: Signed DATE:10/05/22 TIME: 928 PATIENT: MONICA BECK UNIT #: [id number] ROOM/BED: [facility]-1 : 44 AGE: 82 SEX: M ATTEND: Ab romain Maria MD ADM AUTHOR: Geneva Silverman CNP * ALL edits or amendments must be made on the [employer]/computer document * Objective General VS/I O: 24 [...] Human Lispro (HUMALOG) 0 Q6HR SUBQ Ipratropium [place] (ATROVENT) 500 MCG RTQ2H PRN PRN INH [...] LE assessment: edema (trace) Musculoskeletal: normal inspection Neuro/BOTTOM BUFFER: alert, oriented X 3, normal speech Skin: [...] (Auto) (14.0 - 32.0 %) 13.0 L [place] % (Auto) (4.8 - 9.0 %) 6.9 Eos % (Auto) (0.3 - 3.7 %) 2.1 Baso % (Auto) (0.0 - 2.0 %) 0.1 Neut # (Auto) (2.0 - 7.6 x10 3/uL) 6.51 Lymph # (Auto) (1.0 - 3.8 x10 3/uL) 1.10 [place] # (Auto) (0.1 - 0.8 x10 3/uL) [...] of DM, HLD, . He presented to [facility] with CP, found to have NSTEMI. [...] Jakob Pa MD on at 2020 RPT #:[id number] END OF REPORT 2022-10-05 08:57:00-00:00 [facility] Cardiothoracic Surgery Prog REPORT#:[id number] REPORT STATUS: Signed DATE:10/05/22 TIME: 856 PATIENT: MONICA BECK UNIT #: [id number] ROOM/BED: [place] [address] : [birth year] AGE: 82 SEX: M ATTEND: Nicolasa Maria MD ADM AUTHOR: Analilia Erwin Physic * ALL edits or amendments must be made on the [employer]/computer document * General Post-op: day 9 Status [...] Result Date Time Pulse Ox 93 10/05 806 B/P 116/55 10/05 806 B/P Mean 0.0 10/05 806 O2 Delivery Room air 10/05 806 Temp 97.5 10/05 806 Pulse 74 10/05 0807 Resp 15 10/05 [...] soft, non-tender, no distention Extremities: moves all Neuro/BOTTOM BUFFER: alert, oriented X 3, normal speech, n o motor deficits Psychiatry: normal affect, normal mood Diagnosis, Assessment Plan Hospital course to date: Mr Beck a very pleasant 82-year-old male with past medical history of diabetes, hyperlipidemia, restless leg syndrome aortic valve stenosis who presented to [facility] complaining of substernal chest pain across the anterior chest positive for n ausea and diaphoresis. CT chest showed small to moderate bilateral pleural effusions, ascending aorta measuring 4.2 cm. Cardiac enzymes elevated pat ient deemed non-STEMI. He was taken to the [facility] coronary angiogram revealed severe multivessel coronary artery disease. Patient started on heparin drip and transferred to [facility] for possible CABG and AVR. PLAN Coronary angiogram images will be uploaded in [employer] system Dr Maria explained to the patient [...] stenosis bilaterally Noncontrasted CT chest performed at [facility] reviewed with Dr. Maria. Images will be uploaded in our system. Coronary angiogram images uploaded in [employer]artolook o Plan for CABG and AVR tomorr [...] completed Consultants: cardiovascular surgery at 1534 RPT #:[id number] END OF REPORT 2022-10-04 15:01:00-00:00 [facility] ([facility]) Hospitalist Discharge Summary REPORT#:[id number] REPORT STATUS: Signed DATE:10/04/22 TIME: 1501 PATIENT: MONICA BECK UNIT #: [id number] ROOM[address]BED[address] : [birth year] AGE: 82 SEX: M [...] and aortic stenosis is transferred here from [facility], where he presen tamra today with complaint of chest pain for the past few weeks. Patie nt complained of substernal chest pain associated with diaphoresis. He was found to hav e elevated troponin I and cardiology was consulted. Patient had left heart catheterization, the results of which are not available at this time. He was then transferred to [facility] for evaluation by cardiothoracic surge roddy. CTS [...] an advanced directive His medical power of prosecuting attorney is son [place] de [place] [...] soft Extremities: no edema Musculoskeletal: normal inspection Neuro/BOTTOM BUFFER: no motor deficits Skin: normal color Psychiatry: [...] Extremities: no clubbing, no cyanosis, no edema Neuro/BOTTOM BUFFER: alert, oriented X 3, CNII-XII intact Skin: [...] timeframe: In 1-2 weeks at 1405 RPT #:[id number] END OF REPORT 2022-10-04 14:36:00-00:00 [facility] Hospitalist Progress Note REPORT#:[id number] REPORT STATUS: Signed DATE:10/04/22 TIME: 1436 PATIENT: MONICA BECK UNIT #: [id number] ROOM/BED: [place] [address] : 44 AGE: 82 SEX: M ATTEND: [...] 71 14 132/68 0.0 95 Room air 10/04 0227 75 25 132/68 92 95 / 0200 69 27 137/63 91 91 / 0153 69 31 93 / 0148 71 33 139/65 93 / 0100 66 26 132/61 88 95 10/04 0000 67 24 128/60 86 96 10/03 2300 70 22 140/70 99 93 10/03 [...] Human Lispro (HUMALOG) 0 Q6HR SUBQ Ipratropium [place] (ATROVENT) 500 MCG RTQ2H PRN PRN INH [...] soft Extremities: no edema Musculoskeletal: normal inspection Neuro/BOTTOM BUFFER: no motor deficits Skin: normal color Psychiatry: [...] (Auto) (14.0 - 32.0 %) 9.7 L [place] % (Auto) (4.8 - 9.0 %) 7.8 Eos % (Auto) (0.3 - 3.7 %) 0.9 Baso % (Auto) (0.0 - 2.0 %) 0.2 Neut # (Auto) (2.0 - 7.6 x10 3/uL) 7.88 H Lymph # (Auto) (1.0 - 3.8 x10 3/uL) 0.96 L [place] # (Auto) (0.1 - 0.8 x10 3/uL) [...] Extremities: no clubbing, no cyanosis, no edema Neuro/BOTTOM BUFFER: alert, oriented X 3, CNII-XII intact Skin: [...] an advanced directive His medical power of prosecuting attorney is son Guille de la vega 09/29- POD #3 AVR and CABG x2 . ?pneumoperitoneuam on CXR. awaiting critical care recs. 10/01- POD 5, central line DC'd, ivf's stopped, kidney function stable, king cath remains x1 more day 10/02: Plan to transfer to [facility] 10/03- Continue plan per cards, and CTS. Transfer to [facility] 10/04 pending placement at 1438 RPT #:[id number] END OF REPORT 2022-10-04 11:47:00-00:00 [facility] Rehab Progress Note REPORT#:[id number] REPORT STATUS: Signed DATE:10/04/22 TIME: 1147 PATIENT: MONICA BECK UNIT #: [id number] ROOM/BED: [place] [address] : [birth year] AGE: 82 SEX: M ATTEND: Nicolasa Maria MD ADM AUTHOR: Starr Wisdom ROUNDING MACHINE TENDER * ALL edits or amendments must be made on the [employer] document * Subjective Chief complaint: Rehab follow-up [...] / 0400 72 25 148/65 94 97 / 0300 75 139/70 97 99 / 0231 97.9 71 14 132/68 0.0 95 Room air 10/04 0227 75 25 132/68 92 95 10/04 0200 69 27 137/63 91 91 10/04 0153 69 31 93 10/04 0148 71 33 139/65 93 10/04 0100 66 26 132/61 88 95 10/04 0000 67 24 128/60 86 96 10/03 2300 70 22 140/70 99 93 10/03 [...] Human Lispro (HUMALOG) 0 Q6HR SUBQ Ipratropium [place] (ATROVENT) 500 MCG RTQ2H PRN PRN INH [...] swelling (minimal ), moving all ext AG Neuro/BOTTOM BUFFER: alert, oriented X 3, CNII-XII intact, normal [...] (Auto) (14.0 - 32.0 %) 9.7 L [place] % (Auto) (4.8 - 9.0 %) 7.8 Eos % (Auto) (0.3 - 3.7 %) 0.9 Baso % (Auto) (0.0 - 2.0 %) 0.2 Neut # (Auto) (2.0 - 7.6 x10 3/uL) 7.88 H Lymph # (Auto) (1.0 - 3.8 x10 3/uL) 0.96 L [place] # (Auto) (0.1 - 0.8 x10 3/uL) [...] disc ussed with patient. at 1151 RPT #:[id number] END OF REPORT 2022-10-04 10:08:00-00:[address] [facility] ([facility] Nephrology Progress Note REPORT#:[id number] REPORT STATUS: Signed DATE:10/04/22 TIME: 1008 PATIENT: MONICA BECK UNIT #: [id number] ROOM/BED: [place] [address] : 42 AGE: 82 SEX: M ATTEND: Nicolasa Maria MD ADM AUTHOR: Nila Cheung MD * ALL edits or amendments must be made on the el [employer]ronic/computer document * Subjective Chief complaint: follow up [...] 96 05/15 1112 99 Room air 21 10/03 1100 67 19 141/66 95 95 05/15 [...] Human Lispro (HUMALOG) 0 Q6HR SUBQ Ipratropium [place] (ATROVENT) 500 MCG RTQ2H PRN PRN INH [...] p ain Extremities: no edema, no gangrene Neuro/BOTTOM BUFFER: alert, oriented X 3, CN II-XII intact [...] (Auto) (14.0 - 32.0 %) 9.7 L Plumas % (Auto) (4.8 - 9.0 %) 7.8 Eos % (Auto) (0.3 - 3.7 %) 0.9 Baso % (Auto) (0.0 - 2.0 %) 0.2 Neut # (Auto) (2.0 - 7.6 x10 3/uL) 7.88 H Lymph # (Auto) (1.0 - 3.8 x10 3/uL) 0.96 L Plumas # (Auto) (0.1 - 0.8 x10 3/uL) [...] Nila Cheung MD on at 1914 RPT #:[id number] END OF REPORT 2022-10-04 08:59:00-00:00 [facility] ([facility]) Cardiology Progress Note REPORT#:[id number] REPORT STATUS: Signed DATE:10/04/22 TIME: 08 PATIENT: MONICA BECK UNIT #: [id number] ROOM/BED: 3362-1 : 42 AGE: 82 SEX: M ATTEND: Nicolasa Maria MD ADM AUTHOR: Geneva Silverman BOOM STICK WORKER * ALL edits or amendments must be made on the [employer] document * Subjective Comments: c/o low back [...] 74 27 136/63 91 94 05/16 0528 36.6 71 14 122/60 0.0 95 Room air 05/16 0500 73 24 122/60 86 90 05/16 0400 72 25 148/65 94 97 05/16 0300 75 139/70 97 99 /16 0231 36.6 71 14 132/68 0.0 95 [...] 99 05/15 1400 77 146/99 119 93 10/03 1300 [...] Human Lispro (HUMALOG) 0 Q6HR SUBQ Ipratropium [place] (ATROVENT) 500 MCG RTQ2H PRN PRN INH [...] LE assessment: edema (trace) Musculoskeletal: normal inspection Neuro/BOTTOM BUFFER: alert, oriented X 3, normal speech Skin: [...] (Auto) (14.0 - 32.0 %) 9.7 L [place] % (Auto) (4.8 - 9.0 %) 7.8 Eos % (Auto) (0.3 - 3.7 %) 0.9 Baso % (Auto) (0.0 - 2.0 %) 0.2 Neut # (Auto) (2.0 - 7.6 x10 3/uL) 7.88 H Lymph # (Auto) (1.0 - 3.8 x10 3/uL) 0.96 L [place] # (Auto) (0.1 - 0.8 x10 3/uL) [...] x10 3/uL) 0.0 0 Laboratory Tests 10/05 455 Chemistry Magnesium (1.80 - 2.40 mg/dL) 1.56 L Results: labs reviewed, vital signs reviewed, rh hoda personally rev'd Telemetry Interpretation: sinus rhythm Diagnosis, Assessment Plan Plan discussed with: patient, spouse/partner Free Text DxA P Notes Free Text DxA P Notes: 82 YO male with MHx of DM, HLD, . He presented to [facility] with CP, found to have NSTEMI. [...] on room air. Discharge when cleared by [facility] Outpatient follow-up with Dr. Kent. at 1216 Electronically Signed by Jakob Pa MD on at 2020 RPT #:[id number] END OF REPORT 2022-10-04 08:53:00-00:00 [facility] Cardiothoracic Surgery Prog REPORT#:[id number] REPORT STATUS: Signed DATE:10/04/22 TIME: 852 PATIENT: MONICA BECK UNIT #: [id number] ROOM/BED: [place] [address] : 42 AGE: 82 SEX: M ATTEND: Ab romain Maria MD ADM AUTHOR: Analilia Erwin Physic * ALL edits or amendments must be made on the el [employer]/computer document * General Post-op: day 8 Status [...] Intake Total Output Total 1999 Balance -1999 - Number 1 Bowel Movements Output, Urine 1999 [...] soft, non-tender, no distention Extremities: moves all Neuro/BOTTOM BUFFER: alert, oriented X 3, normal speech, n o motor deficits Psychiatry: normal affect, normal mood Diagnosis, Assessment Plan Hospital course to date: Mr Beck a very pleasant 82-year-old male with past medical history of diabetes, hyperlipidemia, restless leg syndrome aortic valve stenosis who [facility] complaining of substernal chest pain across the anterior chest positive for n ausea and diaphoresis. CT chest showed small to moderate bilateral pleural effusions, ascending aorta measuring 4.2 cm. Cardiac enzymes elevated pat ient deemed non-STEMI. He was taken to the [facility] coronary angiogram revealed severe multivessel coronary artery disease. Patient started on heparin drip and transferred to [facility] for possible CABG and AVR. PLAN Coronary angiogram images will be uploaded in [employer] system Dr Maria explained to the patient his family t he angiogram findings and echocardiogram findings and recommended coronary artery bypass graft and aortic valve replacement. The surgery, risks involved, STS score, benefits, complications and alternatives were expl ained to the patient including risk of stroke, respiratory failure, need for tracheosto my, renal failure requiring dialysis, bleeding, infection. Patient acknowle dged understanding and is willing to proceed Initiate preop work-up for AVR Carotid ultrasound BLE venous doppler for vein mapping and marking UA to rule out UTI We will tentatively schedule patient for AVR on 09/26 Preop assessment ongoing Denies chest pain, no shortness of breath Remains on heparin drip Carotid ultrasound showed less than 50% stenosis bilaterally Noncontrasted CT chest performed at [facility] reviewed with Dr. Maria. Images will be uploaded in our system. Coronary angiogram images uploaded in weartolook o Plan for CABG and AVR tomorr [...] cardiovascular surgery at 0859 at 0237 RPT #:[id number] END OF REPORT 2022-10-03 13:57:00-00:00 [facility] ([facility] Hospitalist Progress Note REPORT#:[id number] REPORT STATUS: Signed DATE:10/03/22 TIME: 1357 PATIENT: MONICA BECK UNIT #: [id number] ROOM/BED: [place] [address] : 42 AGE: 82 SEX: M ATTEND: Nicolasa Maria MD ADM AUTHOR: Charlotte Fitzpatrick MD * ALL edits or amendments must be made on the [employer]/computer document * Subjective Chief complaint: no acute [...] Human Lispro (HUMALOG) 0 Q6HR SUBQ Ipratropium [place] (ATROVENT) 500 MCG RTQ2H MI N PRN INH Cyanocobalamin (Vitamin B-12 500 mcg tab) 500 MC G DAILY PO Ferrous Sulfate (FERROUS SULFATE) 325 MG DAILY P O Bisacodyl (DULCOLAX) 10 MG ONCE PRN RECTAL Amiodarone HCl (AMIODARONE HCL) 450 MG ASDIR IV (CKD) Dextrose/Water (D5%W NON-DEHP) 250 ML Mupirocin (BACTROBAN 2% 22 GM OINTMENT) 1 APPLI C BID NASAL (DC) Dopamine HCl/Dextrose (DOPamine 400MG/D5W [...] soft Extremities: no edema Musculoskeletal: normal inspection Neuro/BOTTOM BUFFER: no motor deficits Skin: normal color Psychiatry: [...] (Auto) (14.0 - 32.0 %) 11.2 L [place] % (Auto) (4.8 - 9.0 %) 8.4 Eos % (Auto) (0.3 - 3.7 %) 1.5 Baso % (Auto) (0.0 - 2.0 %) 0.1 Neut # (Auto) (2.0 - 7.6 x10 3/uL) 7.05 Lymph # (Auto) (1.0 - 3.8 x10 3/uL) 1.02 [place] # (Auto) (0.1 - 0.8 x10 3/uL) [...] Extremities: no clubbing, no cyanosis, no edema Neuro/BOTTOM BUFFER: alert, oriented X 3, CNII-XII intact Skin: [...] an advanced directive His medical power of prosecuting attorney is son Guille Francois t 09/29- POD #3 AVR and CABG x2 . ?pneumoperitoneuam on CXR. awaiting critical care recs. 10/01- POD 5, central line DC'd, ivf's stopped, kidney function stable, ikng cath remains x1 more day 10/02: Plan to transfer to [facility] 10/03- Continue plan per cards, and CTS. Transfer to [facility] at 1401 RPT #:[id number] END OF REPORT 2022-10-03 13:54:00-00:00 [facility] ([facility] Critical Care Progress Note REPORT#:[id number] REPORT STATUS: Signed DATE:10/03/22 TIME: 1354 PATIENT: MONICA BECK UNIT #: [id number] ROOM/BED: [place] [address] : 42 AGE: 82 SEX: M ATTEND: Nicolasa Maria MD ADM AUTHOR: Milton Mast MD * ALL edits or amendments must be made on the el [employer]/computer document * Subjective Chief complaint: CABG HPI: [...] Human Lispro (HUMALOG) 0 Q6HR SUBQ Ipratropium [place] (ATROVENT) 500 MCG RTQ2H PRN PRN INH [...] (Auto) (14.0 - 32.0 %) 11.2 L [place] % (Auto) (4.8 - 9.0 %) 8.4 Eos % (Auto) (0.3 - 3.7 %) 1.5 Baso % (Auto) (0.0 - 2.0 %) 0.1 Neut # (Auto) (2.0 - 7.6 x10 3/uL) 7.05 Lymph # (Auto) (1.0 - 3.8 x10 3/uL) 1.02 [place] # (Auto) (0.1 - 0.8 x10 3/uL) [...] 0.1 x10 3/uL) 0.0 2 Laboratory Tests 10/03/22 0218: [Embedded Image Not Available] 10/03/22217: [Embedded Image [...] Musculoskeletal: normal inspection, no muscle sp asm Neuro/BOTTOM BUFFER: Alert and oriented x3, CNII-XII gross ly [...] MD on 09/19 10/11 at 1420 RPT #:[id number] END OF REPORT 2022-10-03 10:51:00-00:00 [facility] ([facility] Nephrology Progress Note REPORT#:[id number] REPORT STATUS: Signed DATE:10/03/22 TIME: 1051 PATIENT: MONICA BECK UNIT #: [id number] ROOM/BED: [place] [address] : 42 AGE: 82 SEX: M ATTEND: Nicolasa Maria MD ADM AUTHOR: Nila Cheung MD * ALL edits or amendments must be made on the [employer]/computer document * Subjective Chief complaint: follow up [...] Human Lispro (HUMALOG) 0 Q6HR SUBQ Ipratropium [place] (ATROVENT) 500 MCG RTQ2H PRN PRN INH [...] p ain Extremities: no edema, no gangrene Neuro/BOTTOM BUFFER: alert, oriented X 3, CN II-XII intact [...] (Auto) (14.0 - 32.0 %) 11.2 L [place] % (Auto) (4.8 - 9.0 %) 8.4 Eos % (Auto) (0.3 - 3.7 %) 1.5 Baso % (Auto) (0.0 - 2.0 %) 0.1 Neut # (Auto) (2.0 - 7.6 x10 3/uL) 7.05 Lymph # (Auto) (1.0 - 3.8 x10 3/uL) 1.02 [place] # (Auto) (0.1 - 0.8 x10 3/uL) [...] Nila Cheung MD on at 1422 RPT #:[id number] END OF REPORT 2022-10-03 10:08:00-00:00 [facility] ([facility]) Cardiology Progress Note REPORT#:[id number] REPORT STATUS: Signed DATE:10/03/22 TIME: 1008 PATIENT: MONICA BECK UNIT #: [id number] ROOM/BED: G.3362-1 : 42 AGE: 82 SEX: M ATTEND: Nicolasa Maria MD ADM AUTHOR: Geneva Silverman BOOM STICK WORKER * ALL edits or amendments must be made on the [employer] document * Subjective Comments: c/o tailbone pain. [...] 10/02 1400 66 22 123/60 87 100 05/14 1300 75 135/100 115 98 05/14 1200 36.3 10/02 1200 72 25 139/61 [...] Human Lispro (HUMALOG) 0 Q6HR SUBQ Ipratropium [place] (ATROVENT) 500 MCG RTQ2H PRN PRN INH [...] LE assessment: edema (trace) Musculoskeletal: normal inspection Neuro/BOTTOM BUFFER: alert, oriented X 3, normal speech Skin: [...] (Auto) (14.0 - 32.0 %) 11.2 L [place] % (Auto) (4.8 - 9.0 %) 8.4 Eos % (Auto) (0.3 - 3.7 %) 1.5 Baso % (Auto) (0.0 - 2.0 %) 0.1 Neut # (Auto) (2.0 - 7.6 x10 3/uL) 7.05 Lymph # (Auto) (1.0 - 3.8 x10 3/uL) 1.02 [place] # (Auto) (0.1 - 0.8 x10 3/uL) [...] M.D. Results: labs reviewed, vital signs reviewed, [facility] personally rev'd Telemetry Interpretation: sinus rhythm Diagnosis, Assessment Plan Plan discussed with: patient, spouse/partner, nu rse Free Text DxA P Notes Free Text DxA P Notes: 82 YO male with MHx of DM, HLD, . [facility], found to have NSTEMI. LHC [...] Jakob Pa MD on at 2020 RPT #:[id number] END OF REPORT 2022-10-03 09:16:00-00:00 [facility] ([facility]) Adult General Consultation REPORT#:[id number] REPORT STATUS: Signed DATE:10/03/22 TIME: 915 PATIENT: MONICA BECK UNIT #: [id number] ROOM/BED: [place] [address] : 42 AGE: 82 SEX: M ATTEND: Nicolasa Maria MD ADM AUTHOR: Jacinto Wisdom * ALL edits or amendments must be made on the [employer] document * History of Present Illness Reason for consult: PMR consult HPI: Mr Beck a very pleasant 82-year-old male with past medical history of diabetes, hyperlipidemia, restless leg syndrome aortic valve stenosis who presented to [facility] complaining of substernal chest pain across the anterior chest positive for n ausea and diaphoresis. CT chest showed small to moderate bilateral pleural effusions, ascending aorta measuring 4.2 cm. Cardiac enzymes elevated pat ient deemed non-STEMI. He was taken to the [facility] coronary angiogram revealed severe multivessel coronary artery disease. Patient started on heparin drip and transferred to [facility]. Patient taken to surgery and underwent AVR [...] 09/26 2100 AC 10/02 (Melatonin) PO 10/26 205 2155 Autonomic Drugs Sig/Jocy Start time Last Medication Dose Route Stop Time Status Admin Ipratropium [place] 500 MCG RTQ2H PRN PRN 09/29 1501 [...] 09/26 2099 AC 10/03 (CORDARONE) PO 10/26 Metoprolol Tartrate 12.5 MG Q12HR [...] Sulfate 100 ML ASDIR PRN 09/26 1515 AC (MAGNESIUM SULFATE IV 10/26 1514 4GM/SWFI 100ML) [...] (DEXTROSE 10% IN IV 10/26 1514 WATER) Dextrose/Water 250 ML ASDIR PRN 09/26 1515 CKD (DEXTROSE 10% IN IV 10/26 1514 WATER) Potassium Chloride 100 ML ASDIR PRN 09/26 1515 AC 09/26 (KCL 20MEQ/SWFI IV 10/26 1514 1750 100ML) Sodium Bicarbonate 50 MEQ ASDIR PRN 09/26 1515 AC (SODIUM BICARBONATE) IV 10/26 1514 Sodium Chloride 250 ML Q24H 09/26 1515 DC (SODIUM CHLORIDE IV 10/26 1514 0.9%) Gastrointestinal Drugs Sig/Joyc Start time Last Medication Dose Route Stop Time Status Admin Bisacodyl 10 MG ONCE PRN 09/28 1200 AC (DULCOLAX) RECTAL 10/28 1159 Polyethylene Glycol 17 GM DAILY 09/27 899 AC 0 10/02 (MIRALAX) PO 10/27 0859 09 Pantoprazole 40 MG DAILY@0600 09/27 0600 AC (PROTONIX) PO 10/27 0559 0630 Docusate Sodium 100 MG BID 09/26 2099 AC 10/03 (COLACE) PO 10/26 2058 0809 [...] PRN 09/26 1515 AC (GLUCAGON) IM 10/26 1514 Skin And Mucous Membrane Agent Sig/Jocy Start time Last Medication Dose Route Stop Time Status Admin Mupirocin 1 APPLIC BID 09/28 09 DC 10/02 (BACTROBAN 2% 22 GM NASAL 10/02 OINTMENT) Vitamins Sig/Jocy Start time Last Medication Dose Route Stop Time Status Admin Cyanocobalamin 500 MCG DAILY 09/29 09 AC 09/19 5 (Vitamin B-12 500 PO 10/29 0859 0808 mcg tab) Allergies: Coded Allergies: No Known Allergies (09/24/22) Review of Systems Constitutional: fatigue, generalized weakness. All systems rev neg: except as marked Objective VS/I O: Last Documented: Result Date Time Pulse Ox 100 10/03 08 FiO2 21 10/03 0820 O2 Delivery Room air 10/03 0820 B/P 134/60 10/03 0800 B/P Mean 87 10/03 0800 Pulse 71 10/03 0800 Resp 23 10/03 08 O2 Flow Rate 1 10/03 0421 Temp [...] range of motion, no mu scle spasm Neuro/BOTTOM BUFFER: alert, oriented X 3 Skin: surgical incisions [...] (Auto) (14.0 - 32.0 %) 11.2 L [place] % (Auto) (4.8 - 9.0 %) 8.4 Eos % (Auto) (0.3 - 3.7 %) 1.5 Baso % (Auto) (0.0 - 2.0 %) 0.1 Neut # (Auto) (2.0 - 7.6 x10 3/uL) 7.05 Lymph # (Auto) (1.0 - 3.8 x10 3/uL) 1.02 [place] # (Auto) (0.1 - 0.8 x10 3/uL) [...] (0.0 - 0.1 x10 3/uL) 0.0 2 05/14 05 1810 1151 Chemistry POC Glucose (70 - [...] ambulat ing 250 feet Consult SNF in [facility] closer to [facility]. You for referral Electronically Signed by Jacinto Wisdom on 0 10/03/22 at 1654 RPT #:[id number] END OF REPORT 2022-10-03 08:42:00-00:00 [facility] Cardiothoracic Surgery Prog REPORT#:[id number] REPORT STATUS: Signed DATE:10/03/22 TIME: 841 PATIENT: MONICA BECK UNIT #: [id number] ROOM/BED: [place] [address] : 42 AGE: 82 SEX: M ATTEND: Nicolasa Maria MD ADM AUTHOR: Kathya Maria MD * ALL edits or amendments must be made on the [employer]/computer document * General Post-op: day 7 Status [...] soft, non-tender, no distention Extremities: moves all Neuro/BOTTOM BUFFER: alert, oriented X 3, normal speech, n [...] Human Lispro (HUMALOG) 0 Q6HR SUBQ Ipratropium [place] (ATROVENT) 500 MCG RTQ2H PRN PRN INH [...] (Auto) (14.0 - 32.0 %) 11.2 L [place] % (Auto) (4.8 - 9.0 %) 8.4 Eos % (Auto) (0.3 - 3.7 %) 1.5 Baso % (Auto) (0.0 - 2.0 %) 0.1 Neut # (Auto) (2.0 - 7.6 x10 3/uL) 7.05 Lymph # (Auto) (1.0 - 3.8 x10 3/uL) 1.02 [place] # (Auto) (0.1 - 0.8 x10 3/uL) [...] Report Impression - Status: SIGNED Entered: 10/03/2022 0791 IMPRESSION: New mild bilateral interstitial opacities, possi ilan mild volume overload. New nonspecific left retrocardiac/basi lar opacities. Impression By: Jennifer - Greg Britton M.D. Results: labs reviewed, vital signs stable, rybhaskar m personally rev'd, x-ray personally reviewed, current med profile rev'd Diagnosis, Assessment Plan Hospital course to date: Mr Beck a very pleasant 82-year-old male with past medical history of diabetes, hyperlipidemia, restless leg syndrome aortic valve stenosis who presented to [facility] complaining of substernal chest pain across the anterior chest positive for n ausea and diaphoresis. CT chest showed small to moderate bilateral pleural effusions, ascending aorta measuring 4.2 cm. Cardiac enzymes elevated pat ient deemed non-STEMI. He was taken to the [facility] coronary angiogram revealed severe multivessel coronary artery disease. Patient started on heparin drip and transferred to [facility] for possible CABG and AVR. PLAN Coronary angiogram images will be uploaded in [employer] system Dr Maria explained to the patient [...] stenosis bilaterally Noncontrasted CT chest performed at [facility] reviewed with Dr. Maria. Images will be uploaded in our system. Coronary angiogram images uploaded in [employer] o Plan for CABG and AVR tomorr [...] remains sinus rhtyhm. Pacing wires on s db GI: Continue Bowel regimen, no bm yet [...] unit Consultants: cardiovascular surgery at 0237 RPT #:[id number] END OF REPORT 2022-10-03 08:39:00-00:00 [id number] [place] [address] PATIENT NAME: MONICA BECK ADMIT DATE: 09/24/22 ACCOUNT NO: [id number] ROOM NO: [facility] AGE: 82 REPORT TYPE: eECHOCARDIOGRAM REPORT SEX: M ADMITTING PHYSICIAN:Kathya Maria MD ATTENDING PHYSICIAN:Kathya Maria MD *[facility]* [address] [place] [address] Limited Transthoracic Echocardiogram Patient: Monica Beck Study Date: 09/29/2022 BP: 95 / 56 Location: [facility] URN: [id number] 2526 : 1940 Age: 82 Height: 64 in / 162.6 cm Gender: M Weight: 184 .6 lb / 83.9 kg BMI/BSA: 31.8 kg/m 2 / 1.98 m 2 *Ordering Physician: * Milton Mast *Interpreting Physician: * Jakob Pa MD *Carpet [employer] Rug Layer Helper: * Claudia Mayorga Indications: R/O PERICARDIAL EFFUSION. [...] PATIENT NAME: MONICA BECK ACCOUNT #: [id number] Mitral valve: There is mild regurgitation. Tricuspid [...] 3.8 cm/sec 6.0 - 13.4 PATIENT NAME: KIRANMONICAELI VALENTE ACCOUNT #: [id number] Mitral valve Value 09/28/2022 Ref Peak E [...] PATIENT NAME: MONICA BECK ACCOUNT #: [id number] 2022-10-02 18:00:00-00:00 [facility] Critical Care Progress Note REPORT#:[id number] REPORT STATUS: Signed DATE:10/02/22 TIME: 1800 PATIENT: MONICA BECK UNIT #: [id number] ROOM/BED: [place] [address] : 42 AGE: 82 SEX: M ATTEND: Nicolasa Maria MD ADM AUTHOR: Sade Arana MD * ALL edits or amendments must be made on the [employer]/computer document * See Addendum Subjective Chief complaint: [...] Human Lispro (HUMALOG) 0 Q6HR SUBQ Ipratropium [place] (ATROVENT) 500 MCG RTQ2H PRN PRN INH [...] (Auto) (14.0 - 32.0 %) 13.3 L [place] % (Auto) (4.8 - 9.0 %) 10.3 H Eos % (Auto) (0.3 - 3.7 %) 1.1 Baso % (Auto) (0.0 - 2.0 %) 0.1 Neut # (Auto) (2.0 - 7.6 x10 3/uL) 5.11 Lymph # (Auto) (1.0 - 3.8 x10 3/uL) 0.94 L [place] # (Auto) (0.1 - 0.8 x10 3/uL) [...] 0829 IMPRESSION: Lungs slightly improved. Impression By: [email or web address] - Varghese Johns M.D. [...] Musculoskeletal: normal inspection, no muscle sp asm Neuro/BOTTOM BUFFER: Alert and oriented x3, CNII-XII gross ly [...] Correction VTE prophylaxis, DAPT at 2221 RPT #:[id number] END OF REPORT 2022-10-02 11:47:00-00:00 [facility]) Nephrology Progress Note REPORT#:[id number] REPORT STATUS: Signed DATE:10/02/22 TIME: 1147 PATIENT: MONICA BECK UNIT #: [id number] ROOM/BED: [place] [address] : 42 AGE: 82 SEX: M ATTEND: Nicolasa Maria MD ADM AUTHOR: Arin Rossi MD * ALL edits or amendments must be made on the el [employer]/computer document * Subjective Chief complaint: follow up [...] Human Lispro (HUMALOG) 0 Q6HR SUBQ Ipratropium [place] (ATROVENT) 500 MCG RTQ2H PRN PRN INH [...] flank pain Extremities: no edema, no gangrene Neuro/BOTTOM BUFFER: alert, oriented X 3, CN II-XII intact [...] (Auto) (14.0 - 32.0 %) 13.3 L [place] % (Auto) (4.8 - 9.0 %) 10.3 H Eos % (Auto) (0.3 - 3.7 %) 1.1 Baso % (Auto) (0.0 - 2.0 %) 0.1 Neut # (Auto) (2.0 - 7.6 x10 3/uL) 5.11 Lymph # (Auto) (1.0 - 3.8 x10 3/uL) 0.94 L [place] # (Auto) (0.1 - 0.8 x10 3/uL) [...] RADIOLOGY - XR CHEST 1 V 10/02 0589 Report Impression - Status: SIGNED Entered: 10/02/2022 9112 IMPRESSION: Lungs slightly improved. Impression By: [email or web address] Keysha Johns M.D. Diagnosis, Assessment Plan Free Text [...] Arin Rossi MD on 10/02 at 2335 RPT #:[id number] END OF REPORT 2022-10-02 09:02:00-00:00 [id number] [place] [address] PATIENT NAME: MONICA BECK ADMIT DATE: 0 09/24/22 ACCOUNT NO: [id number] ROOM NO: [facility] AGE: 82 REPORT TYPE: eELECTROCARDIOGRAM REPORT SEX: M ADMITTING PHYSICIAN:Kathya Maria MD ATTENDING PHYSICIAN:Kathya Maria MD Order: [id number] Test Reason : rhythm change Test Date/Time [...] PATIENT NAME: MONICA BECK ACCOUNT #: [id number] 2022-10-02 08:49:00-00:00 [facility] Hospitalist Progress Note REPORT#:[id number] REPORT STATUS: Signed DATE:10/02/22 TIME: 0849 PATIENT: MONICA BECK UNIT #: [id number] ROOM/BED: [place] [address] : 42 AGE: 82 SEX: M ATTEND: Nicolasa Maria MD ADM AUTHOR: Charlotte Fitzpatrick MD * ALL edits or amendments must be made on the [employer] document * Subjective Chief complaint: no acute [...] Human Lispro (HUMALOG) 0 Q6HR SUBQ Ipratropium [place] (ATROVENT) 500 MCG RTQ2H PRN PRN INH [...] S/P SURGERY Nutrition prescription: 1. RECOMMEND CONTINUE C ARDIAC DIET. HONOR FOOD PREFERENCES APPROPRIATE WITH DIET [...] soft Extremities: no edema Musculoskeletal: normal inspection Neuro/BOTTOM BUFFER: no motor deficits Skin: normal color Psychiatry: normal affect, normal judgment/insig ht Results Findings/Data: Laboratory Tests 10/02 10/02 10/02 10/02 10/01 0753 0633 0314 0011 2058 Chemistry Sodium (134 - 147 mEq/L) 140 [...] (Auto) (14.0 - 32.0 %) 13.3 L [place] % (Auto) (4.8 - 9.0 %) 10.3 H Eos % (Auto) (0.3 - 3.7 %) 1.1 Baso % (Auto) (0.0 - 2.0 %) 0.1 Neut # (Auto) (2.0 - 7.6 x10 3/uL) 5.11 Lymph # (Auto) (1.0 - 3.8 x10 3/uL) 0.94 L [place] # (Auto) (0.1 - 0.8 x10 3/uL) [...] Report Impression - Status: SIGNED Entered: 10/02/2022 8656 IMPRESSION: Lungs slightly improved. Impression By: Juancho Johns M.D. Free Text Obj Notes Free [...] Extremities: no clubbing, no cyanosis, no edema Neuro/BOTTOM BUFFER: alert, oriented X 3, CNII-XII intact Skin: [...] an advanced directive His medical power of prosecuting attorney is son Guille Francois t 09/29- POD #3 AVR and CABG x2 . ?pneumoperitoneuam on CXR. awaiting critical care recs. 10/01- POD 5, central line DC'd, ivf's stopped, kidney function stable, king cath remains x1 more day 10/02: Plan to transfer to [facility] at 4912 RPT #:[id number] END OF REPORT 2022-10-02 08:27:00-00:00 [facility] ([facility]) Cardiology Progress Note REPORT#:[id number] REPORT STATUS: Signed DATE:10/02/22 TIME: 826 PATIENT: MONICA BECK UNIT #: [id number] ROOM/BED: [place] [address] : 42 AGE: 82 SEX: M ATTEND: Nicolasa Maria MD ADM AUTHOR: Clarisse Gotti NP * ALL edits or amendments must be made on the [employer] document * Subjective Chief complaint: Tired, wants [...] Human Lispro (HUMALOG) 0 Q6HR SUBQ Ipratropium [place] (ATROVENT) 500 MCG RTQ2H PRN PRN INH [...] LE assessment: no edema Musculoskeletal: normal inspection Neuro/BOTTOM BUFFER: alert, oriented X 3, normal speech Skin: [...] (Auto) (14.0 - 32.0 %) 13.3 L [place] % (Auto) (4.8 - 9.0 %) 10.3 H Eos % (Auto) (0.3 - 3.7 %) 1.1 Baso % (Auto) (0.0 - 2.0 %) 0.1 Neut # (Auto) (2.0 - 7.6 x10 3/uL) 5.11 Lymph # (Auto) (1.0 - 3.8 x10 3/uL) 0.94 L [place] # (Auto) (0.1 - 0.8 x10 3/uL) [...] Report Impression - Status: SIGNED Entered: 10/02/2022 4058 IMPRESSION: Lungs slightly improved. Impression By: Juancho [...] of DM, HLD, . He presented to [facility] with CP, found to have NSTEMI. [...] on at 1148 Electronically Signed by Ana Luna MD on at 1851 RPT #:[id number] END OF REPORT 2022-10-02 07:37:00-00:00 [facility] Cardiothoracic Surgery Prog REPORT#:[id number] REPORT STATUS: Signed DATE:10/02/22 TIME: 736 PATIENT: MONICA BECK UNIT #: [id number] ROOM/BED: [place] [address] : 42 AGE: 82 SEX: M ATTEND: Nicolasa Maria MD ADM AUTHOR: Analilia Erwin Physic * ALL edits or amendments must be made on the [employer]/computer document * General Post-op: day 6 (1) [...] soft, non-tender, no distention Extremities: moves all Neuro/BOTTOM BUFFER: alert, oriented X 3, normal speech, n o motor deficits Psychiatry: normal affect, normal mood Diagnosis, Assessment Plan Hospital course to date: Mr Beck a very pleasant 82-year-old male with past medical history of diabetes, hyperlipidemia, restless leg syndrome aortic valve stenosis who presented to [facility] complaining of substernal chest pain across the anterior chest positive for n ausea and diaphoresis. CT chest showed small to moderate bilateral pleural effusions, ascending aorta measuring 4.2 cm. Cardiac enzymes elevated pat ient deemed non-STEMI. He was taken to the [facility] coronary angiogram revealed severe multivessel coronary artery disease. Patient started on heparin drip and transferred to [facility] for possible CABG and AVR. PLAN Coronary angiogram images will be uploaded in [employer] system Dr Maria explained to the patient [...] stenosis bilaterally Noncontrasted CT chest performed at [facility] reviewed with Dr. Maria. Images will be uploaded in our system. Coronary angiogram images uploaded in weartolook o Plan for CABG and AVR tomorr [...] Consultants: cardiovascular surgery at 1255 at 0245 [facility] #:[id number] END OF REPORT 2022-10-01 16:41:00-00:00 [facility] ([facility]) Nephrology Progress Note REPORT#:[id number] REPORT STATUS: Signed DATE:10/01/22 TIME: 164 PATIENT: MONICA BECK UNIT #: [id number] ROOM/BED: [place] [address] : 42 AGE: 82 SEX: M ATTEND: Nicolasa Maria MD ADM AUTHOR: Arin Rossi MD * ALL edits or amendments must be made on the [employer]/computer document * Objective General VS/I O: Vital [...] 24 hour I O ending at 0700: 05/13 0700 09/30 1900 Intake Total 240 780.00 [...] Human Lispro (HUMALOG) 0 Q6HR SUBQ Ipratropium [place] (ATROVENT) 500 MCG RTQ2H PRN PRN INH [...] flank pain Extremities: no edema, no gangrene Neuro/BOTTOM BUFFER: alert, oriented X 3, CN II-XII intact [...] (Auto) (14.0 - 32.0 %) 12.9 L [place] % (Auto) (4.8 - 9.0 %) 9.8 H Eos % (Auto) (0.3 - 3.7 %) 2.5 Baso % (Auto) (0.0 - 2.0 %) 0.2 Neut # (Auto) (2.0 - 7.6 x10 3/uL) 4.48 Lymph # (Auto) (1.0 - 3.8 x10 3/uL) 0.79 L [place] # (Auto) (0.1 - 0.8 x10 3/uL) [...] RADIOLOGY - XR CHEST 1 V 10/01 0636 Report Impression - Status: SIGNED Entered: 10/01/2022 [...] Rossi MD on 10/01 at 1645 RPT #:[id number] END OF REPORT 2022-10-01 15:23:00-00:00 [facility] Hospitalist Progress Note REPORT#:[id number] REPORT STATUS: Signed DATE:10/01/22 TIME: 1523 PATIENT: MONICA BECK UNIT #: [id number] ROOM/BED: [place] [address] : 42 AGE: 82 SEX: M ATTEND: Nicolasa Maria MD ADM AUTHOR: Charlotte Fitzpatrick MD * ALL edits or amendments must be made on the [employer]/computer document * Subjective Chief complaint: no acute [...] 93 93 10/01 1143 97 Room air 10/01 1100 68 139/63 91 94 10/01 [...] Human Lispro (HUMALOG) 0 Q6HR SUBQ Ipratropium [place] (ATROVENT) 500 MCG RTQ2H PRN PRN INH [...] soft Extremities: no edema Musculoskeletal: normal inspection Neuro/BOTTOM BUFFER: no motor deficits Skin: normal color Psychiatry: [...] Extremities: no clubbing, no cyanosis, no edema Neuro/BOTTOM BUFFER: alert, oriented X 3, CNII-XII intact Skin: [...] an advanced directive His medical power of prosecuting attorney is son Guille de la vega 09/29- POD #3 AVR and CABG x2 . ?pneumoperitoneuam on CXR. awaiting critical care recs. 10/01- POD 5, central line DC'd, ivf's stopped, kidney function stable, king cath remains x1 more day at 2059 RPT #:[id number] END OF REPORT 2022-10-01 08:44:00-00:00 [facility] Cardiothoracic Surgery Prog REPORT#:[id number] REPORT STATUS: Signed DATE:10/01/22 TIME: 08 PATIENT: MONICA BECK UNIT #: [id number] ROOM/BED: [place] [address] : 42 AGE: 82 SEX: M ATTEND: Nicolasa Maria MD ADM AUTHOR: Analilia Erwin Physic * ALL edits or amendments must be made on the [employer]/computer document * General Post-op: day 5 (1) [...] soft, non-tender, no distention Extremities: moves all Neuro/BOTTOM BUFFER: alert, oriented X 3, normal speech, n o motor deficits Psychiatry: normal affect, normal mood Diagnosis, Assessment Plan Hospital course to date: Mr Beck a very pleasant 82-year-old male with past medical history of diabetes, hyperlipidemia, restless leg syndrome aortic valve stenosis who presented to [facility] complaining of substernal chest pain across the anterior chest positive for n ausea and diaphoresis. CT chest showed small to moderate bilateral pleural effusions, ascending aorta measuring 4.2 cm. Cardiac enzymes elevated pat ient deemed non-STEMI. He was taken to the [facility] coronary angiogram revealed severe multivessel coronary artery disease. Patient started on heparin drip and transferred to [facility] for possible CABG and AVR. PLAN [...] stenosis bilaterally Noncontrasted CT chest performed at [facility] reviewed with Dr. Maria. Images will be uploaded in our system. Coronary angiogram images uploaded in [employer]art[employer]ook o Plan for CABG and AVR tomorr [...] Consultants: cardiovascular surgery at 1327 at 0245 [facility] #:[id number] END OF REPORT 2022-10-01 08:16:00-00:00 [facility] Cardiology Progress Note REPORT#:[id number] REPORT STATUS: Signed DATE:10/01/22 TIME: 0816 PATIENT: MONICA BECK UNIT #: [id number] ROOM/BED: [place] [address] : 42 AGE: 82 SEX: M ATTEND: Nicolasa Maria MD ADM AUTHOR: Clarisse Gotti NP * ALL edits or amendments must be made on the [employer] document * Subjective Chief complaint: Want to [...] 10/01 0400 63 17 126/60 86 95 / 2300 65 25 117/58 79 96 09/30 [...] Human Lispro (HUMALOG) 0 Q6HR SUBQ Ipratropium [place] (ATROVENT) 500 MCG RTQ2H PRN PRN INH [...] LE assessment: no edema Musculoskeletal: normal inspection Neuro/BOTTOM BUFFER: alert, oriented X 3, normal speech Skin: [...] (Auto) (14.0 - 32.0 %) 12.9 L [place] % (Auto) (4.8 - 9.0 %) 9.8 H Eos % (Auto) (0.3 - 3.7 %) 2.5 Baso % (Auto) (0.0 - 2.0 %) 0.2 Neut # (Auto) (2.0 - 7.6 x10 3/uL) 4.48 Lymph # (Auto) (1.0 - 3.8 x10 3/uL) 0.79 L [place] # (Auto) (0.1 - 0.8 x10 3/uL) [...] RADIOLOGY - XR CHEST 1 V 10/01 3930 Report Impression - Status: SIGNED Entered: 10/01/2022 [...] of DM, HLD, . He presented to [facility] with CP, found to have NSTEMI. [...] on at 1247 Electronically Signed by Ana Luna MD on at 1654 [facility] #:[id number] END OF REPORT 2022-10-01 06:32:00-00:00 [facility] ([facility]) Critical Care Progress Note REPORT#:[id number] REPORT STATUS: Signed DATE:10/01/22 TIME: 631 PATIENT: MONICA BECK UNIT #: [id number] ROOM/BED: [place] [address] : 42 AGE: 82 SEX: M ATTEND: Nicolasa Maria MD ADM AUTHOR: Milton Mast MD * ALL edits or amendments must be made on the [employer]/computer document * Subjective Chief complaint: CABG HPI: [...] Pulse Ox 96 05 2300 B/P 117/58 05/ 2300 B/P Mean 79 05/ 2300 Pulse 65 05/ 2300 Resp 25 09/30 2300 FiO2 96 05/12 1945 O2 Delivery Room air 09/30 1944 [...] Human Lispro (HUMALOG) 0 Q6HR SUBQ Ipratropium [place] (ATROVENT) 500 MCG RTQ2H PRN PRN INH [...] Musculoskeletal: normal inspection, no muscle sp asm Neuro/BOTTOM BUFFER: Alert and oriented x3, CNII-XII gross ly [...] MD on 09/19 08/11 at 1245 RPT #:[id number] END OF REPORT 2022-09-30 15:58:00-00:00 [facility] Cardiothoracic Surgery Prog REPORT#:[id number] REPORT STATUS: Signed DATE:09/30/22 TIME: 1558 PATIENT: MONICA BECK UNIT #: [id number] ROOM/BED: [place] [address] : 42 AGE: 82 SEX: M ATTEND: Ab romain Maria MD ADM AUTHOR: Analilia Erwin Physic * ALL edits or amendments must be made on the [employer]/computer document * General Post-op: day 4 (1) [...] soft, non-tender, no distention Extremities: moves all Neuro/BOTTOM BUFFER: alert, oriented X 3, normal speech, n o motor deficits Psychiatry: normal affect, normal mood Diagnosis, Assessment Plan Hospital course to date: Mr Beck a very pleasant 82-year-old male with past medical history of diabetes, hyperlipidemia, restless leg syndrome aortic valve stenosis who presented to [facility] complaining of substernal chest pain across the anterior chest positive for n ausea and diaphoresis. CT chest showed small to moderate bilateral pleural effusions, ascending aorta measuring 4.2 cm. Cardiac enzymes elevated pat ient deemed non-STEMI. He was taken to the [facility] coronary angiogram revealed severe multivessel coronary artery disease. Patient started on heparin drip and transferred to [facility] for possible CABG and AVR. PLAN Coronary angiogram images will be uploaded in ou r system Dr Maria explained to the [...] stenosis bilaterally Noncontrasted CT chest performed at [facility] reviewed with Dr. Maria. Images will be uploaded in our system. Coronary angiogram images uploaded in weartolook o Plan for CABG and AVR tomorr [...] cardiovascular surgery at 1604 at 0245 RPT #:[id number] END OF REPORT 2022-09-30 10:42:00-00:[address] [facility] ([facility] Nephrology Progress Note REPORT#:[id number] REPORT STATUS: Signed DATE:09/30/22 TIME: 1042 PATIENT: MONICA BECK UNIT #: [id number] ROOM/BED: [place] [address] : 42 AGE: 82 SEX: M ATTEND: Nicolasa Maria MD ADM AUTHOR: Nila Cheung MD * ALL edits or amendments must be made on the [employer] document * Subjective Comments: Doing well, increasing [...] 09/30 0500 69 26 118/58 83 93 05/ 0400 71 22 122/60 86 95 / 0301 71 20 125/65 86 94 / 0300 71 22 94 / 0200 68 17 141/63 91 95 09/30 0100 71 23 119/57 82 93 09/30 0000 72 23 117/63 85 95 09/29 [...] Human Lispro (HUMALOG) 0 Q6HR SUBQ Ipratropium [place] (ATROVENT) 500 MCG RTQ2H PRN PRN INH [...] (ULTRAM) 25 MG QID PRN PO Ipratropium [place] (ATROVENT) 500 MCG RTQ4H INH (DC) Acetaminophen [...] flank pain Extremities: no edema, no gangrene Neuro/BOTTOM BUFFER: alert, oriented X 3, CN II-XII intact [...] (Auto) (14.0 - 32.0 %) 13.2 L [place] % (Auto) (4.8 - 9.0 %) 6.5 Eos % (Auto) (0.3 - 3.7 %) 1.4 Baso % (Auto) (0.0 - 2.0 %) 0.2 Neut # (Auto) (2.0 - 7.6 x10 3/uL) 4.45 Lymph # (Auto) (1.0 - 3.8 x10 3/uL) 0.75 L [place] # (Auto) (0.1 - 0.8 x10 3/uL) [...] Signed by Nila Cheung MD on at [facility] RPT #:[id number] END OF REPORT 2022-09-30 09:54:00-00:00 [facility] Card[facility] Progress Note REPORT#:[id number] REPORT STATUS: Signed DATE:09/30/22 TIME: 953 PATIENT: MONICA BECK UNIT #: [id number] ROOM/BED: [place] [address] : 42 AGE: 82 SEX: M ATTEND: Nicolasa Maria MD ADM AUTHOR: Clarisse Gotti NP * ALL edits or amendments must be made on the [employer]/computer document * Subjective Chief complaint: Doing ok [...] hour I O ending at 0700: 09/29 1900 09/30 0700 Intake Total 1230.00 890.00 [...] 09/30 1200 72 24 108/87 94 92 / 1159 96 Room air 21 05/ 1101 66 23 115/55 79 96 / 1021 75 150/63 91 94 05/ 1000 65 15 116/58 83 95 05/ 0901 66 19 109/57 79 97 05/ 0801 73 150/69 99 90 05/ 0800 97.9 05/ 0800 97 Room air 21 05/ 0725 67 19 96 05/ 0700 67 18 110/56 79 96 05/ 0600 70 27 122/58 84 96 05/ 0500 69 26 118/58 83 93 05/ 0400 71 22 122/60 86 95 05/ 0301 71 20 125/65 86 94 05/ 0300 71 22 94 05/ 0200 68 17 141/63 91 95 05/ 0100 71 23 119/57 82 93 05/ 0000 72 23 117/63 85 95 09/29 2300 70 20 123/60 86 95 09/29 2200 71 29 107/54 77 95 09/29 2100 70 23 107/54 77 95 09/29 2000 98.2 09/30 1999 72 19 128/57 82 [...] Human Lispro (HUMALOG) 0 Q6HR SUBQ Ipratropium [place] (ATROVENT) 500 MCG RTQ2H PRN PRN INH [...] (ULTRAM) 25 MG QID PRN PO Ipratropium [place] (ATROVENT) 500 MCG RTQ4H INH (DC) Acetaminophen [...] LE assessment: no edema Musculoskeletal: normal inspection Neuro/BOTTOM BUFFER: alert, oriented X 3, normal speech Skin: [...] (Auto) (14.0 - 32.0 %) 13.2 L [place] % (Auto) (4.8 - 9.0 %) 6.5 Eos % (Auto) (0.3 - 3.7 %) 1.4 Baso % (Auto) (0.0 - 2.0 %) 0.2 Neut # (Auto) (2.0 - 7.6 x10 3/uL) 4.45 Lymph # (Auto) (1.0 - 3.8 x10 3/uL) 0.75 L [place] # (Auto) (0.1 - 0.8 x10 3/uL) [...] Report Impression - Status: SIGNED Entered: 09/30/2022 6426 IMPRESSION: No significant change when allowing for differen chloé in technique. Impression By: LisaABPriya - Varghese Johns M.D. [...] of DM, HLD, . He presented to [facility] with CP, found to have NSTEMI. [...] Jakob Pa MD on at 2019 RPT #:[id number] END OF REPORT 2022-09-30 09:03:00-00:00 [facility] ([facility]) Critical Care Progress Note REPORT#:[id number] REPORT STATUS: Signed DATE:09/30/22 TIME: 902 PATIENT: MONICA BECK UNIT #: [id number] ROOM/BED: [place] [address] : 42 AGE: 82 SEX: M ATTEND: Nicolasa Maria MD ADM AUTHOR: Milton Mast MD * ALL edits or amendments must be made on the [employer]computer document * Subjective Chief complaint: CABG HPI: [...] Pulse 67 09/30 0725 Resp 19 09/30 0725 B/P 110/56 09/30 07 B/P Mean 79 [...] Human Lispro (HUMALOG) 0 Q6HR SUBQ Ipratropium [place] (ATROVENT) 500 MCG RTQ2H PRN PRN INH [...] (ULTRAM) 25 MG QID PRN PO Ipratropium [place] (ATROVENT) 500 MCG RTQ4H INH (DC) Acetaminophen [...] (Auto) (14.0 - 32.0 %) 13.2 L [place] % (Auto) (4.8 - 9.0 %) 6.5 Eos % (Auto) (0.3 - 3.7 %) 1.4 Baso % (Auto) (0.0 - 2.0 %) 0.2 Neut # (Auto) (2.0 - 7.6 x10 3/uL) 4.45 Lymph # (Auto) (1.0 - 3.8 x10 3/uL) 0.75 L [place] # (Auto) (0.1 - 0.8 x10 3/uL) [...] for differen chloé in technique. Impression By: LisaABPriya - Varghese Johns M.D. [...] Musculoskeletal: normal inspection, no muscle sp asm Neuro/BOTTOM BUFFER: Alert and oriented x3, CNII-XII gross ly [...] MD on 09/19 08/11 at 1245 RPT #:[id number] END OF REPORT 2022-09-29 13:14:00-00:00 [facility] Hospitalist Progress Note REPORT#:[id number] REPORT STATUS: Signed DATE:09/29/22 TIME: 1314 PATIENT: MONICA BECK UNIT #: [id number] ROOM/BED: [place] [address] : 42 AGE: 82 SEX: M ATTEND: Nicolasa Maria MD ADM AUTHOR: Lisandro Russell MD * ALL edits or amendments must be made on the [employer]/computer document * Subjective Chief complaint: sitting up beside the bed. no cp. c/p post op di [place] and poor apetite. Objective General VS/I O: Vital Signs: Date Time Temp Pulse Resp B/P B/P Pulse O2 O2 F low FiO2 Mean Ox Delivery Rate 09/29 929 71 19 97/50 69 94 09/29 899 73 26 111/57 81 95 09/29 0830 75 106/55 77 97 09/29 0809 94 Nasal 2 cannula 09/30 799 71 20 108/54 77 95 09/29 0630 71 19 110/57 80 93 09/29 0700 74 21 99/56 74 95 09/29 0530 69 23 94/52 70 100 09/29 0607 74 20 100/52 74 97 09/29 0500 71 26 97 09/29 0430 71 24 94/50 68 99 09/29 0502 [...] soft Extremities: no edema Musculoskeletal: normal inspection Neuro/BOTTOM BUFFER: no motor deficits Skin: normal color Psychiatry: [...] Dose Route Stop Time Status Admin Ipratropium [place] 500 MCG RTQ2H PRN PRN 09/29 1501 AC INH 10/29 1500 Cyanocobalamin 500 MCG DAILY 09/29 09 AC PO 10/29 0859 Ferrous Sulfate 325 [...] 111 205 Mupirocin 1 APPLIC BID 09/28 0900 AC 09/29 NASAL 10/02 2101 0843 Atorvastatin Calcium 40 MG 2100 09/27 2100 DC 0 09/28 PO 10/27 2058 205 Dopamine HCl/Dextrose 250 ML ASDIR 09/27 1045 AC 09/27 IV 10/27 1044 1057 Clopidogrel Bisulfate 75 MG DAILY 09/27 899 AC 09/29 PO 10/27 0859 0842 Polyethylene Glycol 17 GM DAILY 09/27 899 AC 0 09/29 PO 10/27 0859 0842 Pantoprazole 40 MG DAILY@0600 09/27 0600 AC PO 10/27 0559 0651 Aspirin 81 MG DAILY 09/26 2100 AC 09/29 PO 10/26 2099 0842 Amiodarone HCl 200 MG TID 09/26 2099 AC 09/28 PO 10/26 Docusate Sodium 100 MG BID 09/26 2099 AC 09/29 PO 10/26 2058 0847 Gabapentin 200 MG BID 09/26 2099 AC 09/29 PO 10/01 900 0842 Melatonin 6 MG BEDTIME 09/26 2099 AC 09/28 PO 10/26 Metoprolol Tartrate 12.5 MG Q12HR 09/26 2099 AC 09/29 PO 10/26 2058 0842 Sennosides 17.2 MG BEDTIME 09/26 2099 AC 09/28 PO 10/26 2058 205 Fentanyl Citrate 50 MCG Q3H PRN PRN 09/26 1930 AC 09/27 IV 0134 Tramadol HCl 50 MG Q4H PRN PRN 09/26 1830 AC PO 10/01 182 205 Tramadol HCl 25 MG QID PRN 09/26 1830 AC 09/27 PO 10/01 182 2125 Ipratropium [place] 500 MCG RTQ4H 09/26 1600 AC 09/29 INH 09/29 1501 1200 Acetaminophen 650 MG Q4H PRN PRN /08 1515 DC 09/28 PO 10/26 1514 0759 [...] Magnesium Sulfate 100 ML ASDIR PRN 09/26 151 A C IV 10/26 151 Magnesium Sulfate 50 ML ASDIR PRN 09/26 1515 A C IV 10/26 1514 Magnesium Sulfate/ 100 ML ASDIR PRN 09/26 151 AC 09/28 Dextrose IV 10/26 151 0331 Nitroglycerin/ 250 ML ASDIR 09/26 151 AC Dextrose IV 10/26 1514 Norepinephrine 250 ML TITRATE 09/26 151 AC Bitartrate IV 10/26 151 Ondansetron HCl 4 MG Q6H PRN PRN 09/26 151 AC IV 10/26 151 Potassium Chloride 100 ML ASDIR PRN 09/26 151 AC 09/26 IV 10/26 1514 1750 Sodium Bicarbonate 50 MEQ ASDIR PRN 09/26 1515 AC IV 10/26 1514 Sodium Chloride 1,000 ML .Q20H 09/26 151 AC IV 10/26 1514 0219 Sodium Chloride [...] (Auto) (14.0 - 32.0 %) 9.9 L [place] % (Auto) (4.8 - 9.0 %) 6.3 Eos % (Auto) (0.3 - 3.7 %) 0.3 Baso % (Auto) (0.0 - 2.0 %) 0.1 Neut # (Auto) (2.0 - 7.6 x10 3/uL) 5.95 Lymph # (Auto) (1.0 - 3.8 x10 3/uL) 0.71 L [place] # (Auto) (0.1 - 0.8 x10 3/uL) [...] Extremities: no clubbing, no cyanosis, no edema Neuro/BOTTOM BUFFER: alert, oriented X 3, CNII-XII intact Skin: [...] an advanced directive His medical power of prosecuting attorney is son Guille Francois t 09/29- POD #3 AVR and CABG x2 . ?pneumoperitoneuam on CXR. awaiting critical care recs. Electronically Signed by Lisandro Russell MD on 09/19 06/13 at 1319 RPT #:[id number] END OF REPORT 2022-09-29 11:57:00-00:00 [facility] Nephrology Consultation Note REPORT#:[id number] REPORT STATUS: Signed DATE:09/29/22 TIME: 1157 PATIENT: MONICA BECK UNIT #: [id number] ROOM/BED: [place] [address] : 42 AGE: 82 SEX: M ATTEND: Nicolasa Maria MD ADM AUTHOR: Nila Cheung MD * ALL edits or amendments must be made on the [employer]/computer document * History of Present Illness Reason for consult: JOSE ARMANDO HPI: Patient is a 82 YO male with past medical history of DM, HLD, went to outside hospital with CP, found to have NSTEMI. [facility] ensu ed that showed severe multivessel CAD. He is transferred to [facility] and underwent CABG and AVR [...] low FiO2 Mean Ox Delivery Rate 09/29 0930 71 19 97/50 69 94 05/ 0900 73 26 111/57 81 95 / 0830 75 106/55 77 97 / 0809 94 Nasal 2 cannula 09/29 0800 71 20 108/54 77 95 05/ 0730 71 19 110/57 80 93 05/ 0700 74 21 99/56 74 95 05/11 0630 69 23 94/52 70 100 05/11 0607 74 20 100/52 74 97 05/ 0600 71 26 97 05/ 0530 71 24 94/50 68 99 05/11 0502 75 28 98/57 74 95 05/ 0501 75 21 68/43 52 96 05/11 0500 75 27 94 05/ 0430 73 21 97/55 72 99 05/ 0418 72 20 98 05/11 0400 97.8 [...] 91 05/ 0000 97.8 Nasal 2 cannula 05 0000 71 19 108/57 78 94 05/10 [...] 96 05/10 1999 97.1 Nasal 2 cannula 051999 67 23 124/59 85 96 05/10 1930 [...] 1200 96 High flow 2 nasal cannula 0510 1200 98 22 92/65 74 73 24 [...] Meds + DC'd Last 24 Hrs Ipratropium [place] (ATROVENT) 500 MCG RTQ2H PRN PRN INH [...] (ULTRAM) 25 MG QID PRN PO Ipratropium [place] (ATROVENT) 500 MCG RTQ4H INH Acetaminophen (TYLENOL) [...] flank pain Extremities: no edema, no gangrene Neuro/BOTTOM BUFFER: alert, oriented X 3, CN II-XII intact [...] (Auto) (14.0 - 32.0 %) 9.9 L [place] % (Auto) (4.8 - 9.0 %) 6.3 Eos % (Auto) (0.3 - 3.7 %) 0.3 Baso % (Auto) (0.0 - 2.0 %) 0.1 Neut # (Auto) (2.0 - 7.6 x10 3/uL) 5.95 Lymph # (Auto) (1.0 - 3.8 x10 3/uL) 0.71 L [place] # (Auto) (0.1 - 0.8 x10 3/uL) [...] RADIOLOGY - XR CHEST 1 V 09/29 0509 Report Impression - Status: SIGNED Entered: 09/29/2022 8309 IMPRESSION: Interval development of pneumoperito neum. I [...] 4. Anemia PRBC transfusion if hemoglobin less t borges 7. No overt GI bleed. Discussed with at bedside Thank you for the consult Echocardiogram on 09/28/2022 1. Left ventricle: Systolic function is mildly r educed. The estimated ejection fraction is 40-44%. 2. Aortic valve: There is a bioprosthetic valve. Electronically Signed by Nila Cheung MD on at 1533 [facility] #:[id number] END OF REPORT 2022-09-29 10:02:00-00:00 [facility] Cardiology Progress Note REPORT#:[id number] REPORT STATUS: Signed DATE:09/29/22 TIME: 1002 PATIENT: MONICA BECK UNIT #: [id number] ROOM/BED: [place] [address] : 42 AGE: 82 SEX: M ATTEND: Nicolasa Maria MD ADM AUTHOR: Geneva Silverman [employer] WORK[employer] * ALL edits or amendments must be made on the [employer] document * Subjective Patient reports: No: complaints. Objective General VS/I O: Vital Signs Date Temp Pulse Resp B/P B/P Mean Pulse Ox FiO2 09/28-09/29 36.2-36.6 67-75 19-34 68-140/43-82 52-93 80-100 PATIENT WEIGHT: Weight (lb): 185 Weight (oz): 13.59 Weight (kg): 84.300 Medications: Active Meds + DC'd Last 24 Hrs Ipratropium [place] (ATROVENT) 500 MCG RTQ2H PRN PRN INH [...] (ULTRAM) 25 MG QID PRN PO Ipratropium [place] (ATROVENT) 500 MCG RTQ4H INH Acetaminophen (TYLENOL) [...] Sodium Chloride (SODIUM CHLORIDE 0.9%) 250 ML Q 24H IV Physical Exam General appearance: alert, awake, oriented, no a cute distress, pleasant, conversational Neck: non-tender Cardiovascular: CV assessment: regular rate and rhythm Respiratory: decreased breath sounds, on oxygen, no distress Abdomen: soft, non-tender, normal bowel sounds, no distention Genitourinary: urinary catheter, urine Lower extremity: LE assessment: no edema Musculoskeletal: normal inspection Neuro/BOTTOM BUFFER: alert, oriented X 3, normal speech Skin: [...] (Auto) (14.0 - 32.0 %) 9.9 L [place] % (Auto) (4.8 - 9.0 %) 6.3 Eos % (Auto) (0.3 - 3.7 %) 0.3 Baso % (Auto) (0.0 - 2.0 %) 0.1 Neut # (Auto) (2.0 - 7.6 x10 3/uL) 5.95 Lymph # (Auto) (1.0 - 3.8 x10 3/uL) 0.71 L [place] # (Auto) (0.1 - 0.8 x10 3/uL) [...] Ramirez Results: labs reviewed, vital signs reviewed, [facility] personally rev'd Telemetry Interpretation: Sinus rhythm Diagnosis, Assessment Plan Plan discussed with: patient, collaborating MD, nurse Free Text DxA P Notes Free Text DxA P Notes: 82 YO male with MHx of DM, HLD, . He presented to [facility] with CP, found to have NSTEMI. [...] Jakob Pa MD on at 2019 RPT #:[id number] END OF REPORT 2022-09-29 08:37:00-00:[address] [facility] ([facility]) DT Operative Note REPORT#:[id number] REPORT STATUS: Signed DATE:09/29/22 TIME: 08 PATIENT: MONICA BECK UNIT #: [id number] ROOM/BED: [place] [address] : 42 AGE: 82 SEX: M ATTEND: Nicolasa Maria MD ADM AUTHOR: Jose Guadalupe Chacon MD * ALL edits or amendments must be made on the [employer] document * Operative Report Operative Note Note: I assisted Dr Maria in the andrews aspects of this operation, including the CABGs and AoV Jose Guadalupe Chacon MD Electronically Signed by Jose Guadalupe Chacon MD on 09/19 06/13 at 0839 RPT #:[id number] END OF REPORT 2022-09-29 07:33:00-00:00 [facility] ([facility]) Critical Care Progress Note REPORT#:[id number] REPORT STATUS: Signed DATE:09/29/22 TIME: 07 PATIENT: MONICA BECK UNIT #: [id number] ROOM/BED: [place] [address] : 42 AGE: 82 SEX: M ATTEND: Nicoalsa Maria MD ADM AUTHOR: Milton Mast MD * ALL edits or amendments must be made on the [employer] document * Subjective Chief complaint: CABG HPI: [...] Result Date Time Pulse Ox 95 09/29 07 B/P 99/56 09/29 0700 B/P Mean 74 09/29 699 Pulse 74 09/29 0700 Resp 21 09/29 07 O2 Delivery Nasal cannula 09/30 399 O2 Flow Rate 2 09/290 Temp 97.8 09/29 0400 24 hour I [...] Meds + DC'd Last 24 Hrs Ipratropium [place] (ATROVENT) 500 MCG RTQ2H PRN PRN INH [...] (ULTRAM) 25 MG QID PRN PO Ipratropium [place] (ATROVENT) 500 MCG RTQ4H INH Acetaminophen (TYLENOL) [...] (Auto) (14.0 - 32.0 %) 9.9 L [place] % (Auto) (4.8 - 9.0 %) 6.3 Eos % (Auto) (0.3 - 3.7 %) 0.3 Baso % (Auto) (0.0 - 2.0 %) 0.1 Neut # (Auto) (2.0 - 7.6 x10 3/uL) 5.95 Lymph # (Auto) (1.0 - 3.8 x10 3/uL) 0.71 L [place] # (Auto) (0.1 - 0.8 x10 3/uL) [...] 0504 Report Impression - Status: SIGNED Entered: 09/29/2022727 IMPRESSION: Interval development of pneumoperito neum. I have initiated contact with clinical staff to relay this critical finding. Pending callback. Impression By: [email or web address] - Gus Ramirez Free Text Obj Notes [...] Musculoskeletal: normal inspection, no muscle sp asm Neuro/BOTTOM BUFFER: Alert and oriented x3, CNII-XII gross ly [...] MD on 09/19 08/11 at 1245 RPT #:[id number] END OF REPORT 2022-09-29 06:48:00-00:00 [facility]) Cardiothoracic Surgery Prog REPORT#:[id number] REPORT STATUS: Signed DATE:09/29/22 TIME: 647 PATIENT: MONICA BECK UNIT #: [id number] ROOM/BED: 3362-1 : 42 AGE: 82 SEX: M ATTEND: Nicolasa Maria MD ADM AUTHOR: Analilia Erwin Physic * ALL edits or amendments must be made on the el ectronic/computer document * General Post-op: day 3 (1) [...] soft, non-tender, no distention Extremities: moves all Neuro/BOTTOM BUFFER: alert, oriented X 3, normal speech, n o motor deficits Psychiatry: normal affect, normal mood Diagnosis, Assessment Plan Hospital course to date: Mr Beck a very pleasant 82-year-old male with past medical history of diabetes, hyperlipidemia, restless leg syndrome aortic valve stenosis who presented to [facility] complaining of substernal chest pain across the anterior chest positive for n ausea and diaphoresis. CT chest showed small to moderate bilateral pleural effusions, ascending aorta measuring 4.2 cm. Cardiac enzymes elevated pat ient deemed non-STEMI. He was taken to the [facility] coronary angiogram revealed severe multivessel coronary artery disease. Patient started on heparin drip and transferred to [facility] for possible CABG and AVR. PLAN Coronary angiogram images will be uploaded in [employer] system Dr Maria explained to the patient [...] stenosis bilaterally Noncontrasted CT chest performed at [facility] reviewed with Dr. Maria. Images will be uploaded in our system. Coronary angiogram images uploaded in weartolook o Plan for CABG and AVR tomorr [...] cardiovascular surgery at 1600 at 0244 RPT #:[id number] END OF REPORT 2022-09-28 12:01:00-00:[address] [facility] ([facility] Hospitalist Progress Note REPORT#:[id number] REPORT STATUS: Signed DATE:09/28/22 TIME: 1201 PATIENT: MONICA BECK UNIT #: [id number] ROOM/BED: 2204-1 : 42 AGE: 82 SEX: M ATTEND: Nicolasa Maria MD ADM AUTHOR: Chiki Fernandez MD * ALL edits or amendments must be made on the el [employer]/computer document * Subjective Chief complaint: IN BED, NO COMPLAINTS HPI: 82-year-old male with past m edical history of hypertension, hyperlipidemia, type 2 diabetes mellitus, restless leg syndro me, and aortic stenosis is transferred here from [facility], where he presen tamra today with complaint of chest pain for the past few weeks. Patie nt complained of substernal chest pain associated with diaphoresis. He was found to hav e elevated troponin I and cardiology was consulted. Patient had left heart catheterization, the results of which are not available at this time. He was then transferred to [facility] for evaluation by cardiothoracic surge ry. Objective General VS/I O: Vital Signs: Date Time Temp Pulse Resp B/P B/P Pulse O2 O2 Flow FiO2 Mean Ox Delivery Rate 09/28 0828 100 High flow 3 nasal cannula 09/28 0700 Nasal 2 cannula 09/28 0700 108/58 78 05/ 0700 83 24 99 05/ 0600 91 50 101/54 68 05/10 0500 103/63 79 05/ 0500 87 20 107/48 65 94 05/10 [...] 125/49 72 95 05/ 1745 110/56 80 05/09 1745 84 25 [...] 24 hour I O ending at 0700: 0510 0700 05/09 1900 Intake Total 1374.00 870.00 Output Total 825 720 Balance 549.00 150.00 Intake, IV 874.00 520.00 Intake, Oral 500 350 Output, Chest 400 345 Tube Drainage Output, Urine 425 375 Patient 177 lb 173 lb Weight Weight Standing scale Measurement Method PATIENT WEIGHT: Weight (lb): 177 Weight (oz): 4.03 Weight (kg): 80.400 Medications: Active Meds + DC'd Last 24 Hrs Ipratropium [place] (ATROVENT) 500 MCG RTQ2H PRN PRN INH [...] (ULTRAM) 25 MG QID PRN PO Ipratropium [place] (ATROVENT) 500 MCG RTQ4H INH Acetaminophen (TYLENOL) [...] soft Extremities: no edema Musculoskeletal: normal inspection Neuro/BOTTOM BUFFER: no motor deficits Skin: normal color Psychiatry: [...] - 32.0 %) 6.9 L 8.1 L [place] % (Auto) (4.8 - 9.0 %) 8.3 7.2 Eos % (Auto) (0.3 - 3.7 %) 0.0 L 0.0 L Baso % (Auto) (0.0 - 2.0 %) 0.1 0.1 Neut # (Auto) (2.0 - 7.6 x10 3/uL) 7.77 H 6.10 Lymph # (Auto) (1.0 - 3.8 x10 3/uL) 0.64 L 0.59 L [place] # (Auto) (0.1 - 0.8 x10 3/uL) [...] Report Impression - Status: SIGNED Entered: 09/28/2022 6815 IMPRESSION: 1. No significant interval change. Hypoventilato [...] Extremities: no clubbing, no cyanosis, no edema Neuro/BOTTOM BUFFER: alert, oriented X 3, CNII-XII intact Skin: [...] an advanced directive His medical power of prosecuting attorney is son Guille de la vega Electronically Signed by Chiki Fernandez MD on 09/28 at 1203 RPT #:[id number] END OF REPORT 2022-09-28 10:31:00-00:00 [id number] [place] [address]998 PATIENT NAME: MONICA BECK ADMIT DATE: 09/24/22 ACCOUNT NO: [id number] ROOM NO: 2200 AGE: 82 REPORT TYPE: eELECTROCARDIOGRAM REPORT SEX: M ADMITTING PHYSICIAN:Kathya Maria MD ATTENDING PHYSICIAN:Kathya Maria MD Order: [id number] Test Reason : , Test Date/Time Stamp: [...] by:ANA SANCHEZ MD Electronically Signed by Ana Luna MD on 0 09/28/22 at 1801 PATIENT NAME: MONICA BECK ACCOUNT #: [id number] 2022-09-28 09:29:00-00:00 [facility] ([facility]) Cardiology Progress Note REPORT#:[id number] REPORT STATUS: Signed DATE:09/28/22 TIME: 928 PATIENT: MONICA BECK UNIT #: [id number] ROOM/BED: 2200-05 : 42 AGE: 82 SEX: M ATTEND: Nicolasa Maria MD ADM AUTHOR: Jakob Pa MD * ALL edits or amendments must be made on the el ectronic/computer document * Subjective Free Text Subj Notes [...] low FiO2 Mean Ox Delivery Rate 09/28 07 Nasal 2 cannula 09/28 07 108/58 78 09/28 0700 83 24 99 09/28 0600 91 50 101/54 68 05/ 0500 103/63 79 05/ 0500 87 20 107/48 65 94 05/ 0400 117/61 82 05/ 0400 89 20 113/49 67 98 05/ 0339 99 Nasal 2 cannula 09/28 0300 [...] 107/50 66 95 05/09 2100 120/68 89 05/ 2100 81 22 130/55 77 95 051999 97.9 051999 114/61 80 05/1999 83 19 124/52 73 95 05/ 1925 94 Nasal 2 cannula 09/27 1920 High flow 3 nasal cannula 09/27 1900 86 31 121/53 75 91 05/09 [...] 05/09 1102 74 24 114/46 67 94 05/ 1100 111/55 76 / 1100 73 23 110/44 64 94 / 1045 111/57 81 09/27 1045 72 22 108/42 63 95 / 1039 76 25 106/43 63 94 / 1030 113/58 82 / 1030 75 21 111/45 66 95 05/ 1016 117/53 76 05/ 1016 74 21 113/45 66 93 / 1000 71 20 115/46 68 95 / 0945 118/67 87 09/27 0845 76 26 117/46 70 94 /01 2840 130/75 95 09/27 0840 74 33 122/49 72 93 09/27 0838 73 09/27 0838 121/60 84 09/27 937 19 95 PATIENT WEIGHT: Weight (lb): 177 Weight (oz): 4.03 Weight (kg): 80.400 Medications: Active Meds + DC'd Last 24 Hrs Ipratropium [place] (ATROVENT) 500 MCG RTQ2H PRN PRN INH [...] (ULTRAM) 25 MG QID PRN PO Ipratropium [place] (ATROVENT) 500 MCG RTQ4H IN H Acetaminophen [...] LE assessment: no edema Musculoskeletal: normal inspection Neuro/BOTTOM BUFFER: alert, oriented X 3, normal speech Skin: dry Psychiatry: normal affect, normal mood Results Findings/Data: Laboratory Tests 09/28 09/28 09/28 09/27 09/27 0737 0210 0210 2303 2025 Chemistry Sodium (134 - 147 mEq/L) 136 [...] - 32.0 %) 6.9 L 8.1 L [place] % (Auto) (4.8 - 9.0 %) 8.3 7.2 Eos % (Auto) (0.3 - 3.7 %) 0.0 L 0.0 L Baso % (Auto) (0.0 - 2.0 %) 0.1 0.1 Neut # (Auto) (2.0 - 7.6 x10 3/uL) 7.77 H 6.10 Lymph # (Auto) (1.0 - 3.8 x10 3/uL) 0.64 L 0.59 L [place] # (Auto) (0.1 - 0.8 x10 3/uL) [...] placement unchange d. Impression By: Gus López Diagnosis, Assessment Plan Problem List/A P: 1. S/P CABG x 2 2. S/P AVR 3. CAD (coronary artery disease) 4. Severe aortic stenosis Free Text DxA P Notes Free Text DxA P Notes: 82 YO male with MHx of DM, HLD, . He presented to [facility] with CP, found to have NSTEMI. [...] Jakob Pa MD on at 0851 RPT #:[id number] END OF REPORT 2022-09-28 09:07:00-00:00 [id number] [address] PATIENT NAME: MONICA BECK ADMIT DATE: 0 09/24/22 ACCOUNT NO: [id number] ROOM NO: [facility] AGE: 82 REPORT TYPE: eECHOCARDIOGRAM REPORT SEX: M ADMITTING PHYSICIAN:Kathya Maria MD ATTENDING PHYSICIAN:Kathya Maria MD *[address] [address] Limited Transthoracic Echocardiogram Patient: Monica Beck Study Date: 09/28/2022 BP: Location: [facility] URN: [id number] 2526 : 1940 Age: 82 Height: 64 in / 162.6 cm Gender: M Weight: 173 lb / 78.6 kg BMI/BSA: 29.8 kg/m 2 / 1.91 m 2 *Ordering Physician: * Milton Mast *Interpreting Physician: * Jakob Pa MD *Carpet Or Rug Layer Helper: * Anali Holman [facility] Indications: S/PCABG/AVR, HYPOTENSION. Study data: Transthoracic [...] PATIENT NAME: MONICA BECK ACCOUNT #: [id number] Measurements Left ventricle Value 09/25/2022 Ref ANNE, [...] 0907 PATIENT NAME: MONICA BECK ACCOUNT #: [id number] 2022-09-28 08:39:00-00:00 [facility] Critical Care Progress Note REPORT#:[id number] REPORT STATUS: Signed DATE:09/28/22 TIME: 08 PATIENT: MONICA BECK UNIT #: [id number] ROOM/BED: [place] [address] : 42 AGE: 82 SEX: M ATTEND: Nicolasa Maria MD ADM AUTHOR: Milton Mast MD * ALL edits or amendments must be made on the [employer]/computer document * Subjective Chief complaint: CABG HPI: [...] Meds + DC'd Last 24 Hrs Ipratropium [place] (ATROVENT) 500 MCG RTQ2H PRN PRN INH [...] (ULTRAM) 25 MG QID PRN PO Ipratropium [place] (ATROVENT) 500 MCG RTQ4H INH Acetaminophen (TYLENOL) [...] 09/28 09/28 09/27 09/27 0737 0210 0210 2306 2025 Chemistry Sodium (134 - 147 mEq/L) 136 [...] - 32.0 %) 6.9 L 8.1 L [place] % (Auto) (4.8 - 9.0 %) 8.3 7.2 Eos % (Auto) (0.3 - 3.7 %) 0.0 L 0.0 L Baso % (Auto) (0.0 - 2.0 %) 0.1 0.1 Neut # (Auto) (2.0 - 7.6 x10 3/uL) 7.77 H 6.10 Lymph # (Auto) (1.0 - 3.8 x10 3/uL) 0.64 L 0.59 L [place] # (Auto) (0.1 - 0.8 x10 3/uL) [...] Report Impression - Status: SIGNED Entered: 09/28/2022 7813 IMPRESSION: 1. No significant interval change. Hypoventilato ry changes in the lung bases. 2. Satisfactory line and tube placement unchange d. Impression By: [email or web address] - Gus Genao Free Text Obj Notes [...] Musculoskeletal: normal inspection, no muscle sp asm Neuro/BOTTOM BUFFER: Alert and oriented x3, CNII-XII gross ly [...] MD on 09/19 08/11 at 1245 RPT #:[id number] END OF REPORT 2022-09-28 07:25:00-00:00 [facility] ([facility]) Cardiothoracic Surgery Prog REPORT#:[id number] REPORT STATUS: Signed DATE:09/28/22 TIME: 724 PATIENT: MONICA BECK UNIT #: [id number] ROOM/BED: [facility]-1 : 42 AGE: 82 SEX: M ATTEND: Nicolasa Maria MD ADM AUTHOR: Analilia Erwin Physic * ALL edits or amendments must be made on the [employer]/computer document * General Post-op: day 2 (1) [...] Result Date Time Pulse Ox 99 09/28 033 O2 Delivery Nasal cannula 09/28 338 O2 Flow Rate 2 09/28 338 Temp 97.9 09/28 1999 B/P 125/49 09/27 1799 B/P Mean 72 09/27 1799 Pulse 84 09/27 1800 Resp 29 09/27 [...] soft, non-tender, no distention Extremities: moves all Neuro/BOTTOM BUFFER: alert, oriented X 3, normal speech, n o motor deficits Psychiatry: normal affect, normal mood Diagnosis, Assessment Plan Hospital course to date: Mr Beck a very pleasant 82-year-old male with past medical history of diabetes, hyperlipidemia, restless leg syndrome aortic valve stenosis who presented to [facility] complaining of substernal chest pain across the anterior chest positive for n ausea and diaphoresis. CT chest showed small to moderate bilateral pleural effusions, ascending aorta measuring 4.2 cm. Cardiac enzymes elevated pat ient deemed non-STEMI. He was taken to the [facility] coronary angiogram revealed severe multivessel coronary artery disease. Patient started on heparin drip and transferred to [facility] for possible CABG and AVR. PLAN Coronary angiogram images will be uploaded in [employer] system Dr Maria explained to the patient [...] stenosis bilaterally Noncontrasted CT chest performed at [facility] reviewed with Dr. Maria. Images will be uploaded in our system. Coronary angiogram images uploaded in [employer]ook o Plan for CABG and AVR tomorr [...] cardiovascular surgery at 1629 at 0244 RPT #:[id number] END OF REPORT 2022-09-28 02:35:00-00:00 [id number] [address] PATIENT NAME: MONICA BECK ADMIT DATE: 0 09/24/22 ACCOUNT NO: [id number] ROOM NO: [facility] AGE: 82 REPORT TYPE: eELECTROCARDIOGRAM REPORT SEX: M ADMITTING PHYSICIAN:Kathya Maria MD ATTENDING PHYSICIAN:Kathya Maria MD Order: [id number] Test Reason : s/p cabg + avr [...] by:ANA SANCHEZ MD Electronically Signed by Ana Luna MD on 0 09/28/22 at 1801 PATIENT NAME: MONICA BECK ACCOUNT #: [id number] 2022-09-27 16:07:00-00:00 [facility] Cardiothoracic Surgery Prog REPORT#:[id number] REPORT STATUS: Signed DATE:09/27/22 TIME: 1607 PATIENT: MONICA BECK UNIT #: [id number] ROOM/BED: [place] [address] : 42 AGE: 82 SEX: M ATTEND: Nicolasa Maria MD ADM AUTHOR: Analilia Erwin Physic * ALL edits or amendments must be made on the [employer]/computer document * General Post-op: day 1 (1) [...] 27 09/27 1506 O2 Delivery Nasal cannula 0509 0812 O2 Flow Rate 2 09/27 08 Temp 97.7 09/27 0400 24 hour I [...] soft, non-tender, no distention Extremities: moves all Neuro/BOTTOM BUFFER: alert, oriented X 3, normal speech, n o motor deficits Psychiatry: normal affect, normal mood Diagnosis, Assessment Plan Hospital course to date: Mr Beck a very pleasant 82-year-old male with past medical history of diabetes, hyperlipidemia, restless leg syndrome aortic valve stenosis who presented to [facility] complaining of substernal chest pain across the anterior chest positive for n ausea and diaphoresis. CT chest showed small to moderate bilateral pleural effusions, ascending aorta measuring 4.2 cm. Cardiac enzymes elevated pat ient deemed non-STEMI. He was taken to the [facility] coronary angiogram revealed severe multivessel coronary artery disease. Patient started on heparin drip and transferred to [facility] for possible CABG and AVR. PLAN Coronary angiogram images will be uploaded in [employer] system Dr Maria explained to the patient [...] stenosis bilaterally Noncontrasted CT chest performed at [facility] reviewed with Dr. Maria. Images will be uploaded in our system. Coronary angiogram images uploaded in weartolook o Plan for CABG and AVR tomorr [...] Cardiac: remains sinus rhtyhm. Pacing wires on tandb GI: Continue Bowel regimen, no bm yet UO: 1200 Continue PT/OT Disposition: DVT prophylaxis Labs reveiwed- replace electrolytes as needed Patient seen and examined by Dr. Maria. Plan o f care discussed with multidisciplinary team Consultants: cardiovascular surgery at 1809 at 0739 RPT #:[id number] END OF REPORT 2022-09-27 13:17:00-00:[address] [facility] ([facility]) Cardiology Consultation REPORT#:[id number] REPORT STATUS: Signed DATE:09/27/22 TIME: 1316 PATIENT: MONICA BECK UNIT #: [id number] ROOM/BED: [place] [address] : 42 AGE: 82 SEX: M ATTEND: Nicolasa Maria MD ADM AUTHOR: Geneva Silverman BOOM STICK WORKER * ALL edits or amendments must be made on the el [employer]/computer document * Geneva Silverman 09/27/22 1317: History of Present Illness HPI Requesting Clinician: Dr. Maria Reason for consult: CAD Chief complaint: CAD PCP: PCP: Kathya Maria MD HPI: 82 YO male with MHx of DM, HLD, . He [facility] with CP, found to have NSTEMI. LHC [...] I O ending at 0700: 09/27 0700 05/08 1900 Intake Total 1581.00 2720.00 [...] Meds + DC'd Last 24 Hrs Ipratropium [place] (ATROVENT) 500 MCG RTQ2H PRN PRN INH [...] (ULTRAM) 25 MG QID PRN PO Ipratropium [place] (ATROVENT) 500 MCG RTQ4H INH Acetaminophen (TYLENOL) [...] LE assessment: no edema Musculoskeletal: normal inspection Neuro/BOTTOM BUFFER: alert, oriented X 3, normal speech Skin: [...] 09/27 09/27 09/26 09/26 0210 0210 0127 6013 2042 Chemistry Sodium (134 - 147 mEq/L) [...] - 1.2) 1.4 H 1.6 H PTT ([place]) (25.0 - 39.5 Seconds) 31.3 40.7 H [...] - 77.0 %) 82.8 H 86.6 H 86 .9 H Lymph % (Auto) (14.0 - 32.0 %) 7.7 L 4.4 L 7.5 L [place] % (Auto) (4.8 - 9.0 %) 9.0 8.6 4.5 L Eos % (Auto) (0.3 - 3.7 %) 0.1 L 0.0 L 0.2 L Baso % (Auto) (0.0 - 2.0 %) 0.1 0.1 0.1 Neut # (Auto) (2.0 - 7.6 x10 3/uL) 7.88 H 7.83 H 11.11 H Lymph # (Auto) (1.0 - 3.8 x10 3/uL) 0.73 L 0.40 L 0.96 L [place] # (Auto) (0.1 - 0.8 x10 3/uL) [...] M.D. Results: labs reviewed, vital signs reviewed, [facility] personally rev'd EKG Interpretation: normal sinus rhythm (sinus r hythm) Diagnosis, Assessment Plan Problem List/A P: 1. S/P CABG x 2 2. S/P AVR 3. CAD (coronary artery disease) 4. Severe aortic stenosis Consultants: cardiovascular surgery Plan discussed with: patient Free Text DxA P Notes Free Text DxA P Notes: 82 YO male with MHx of DM, HLD, . He presented to [facility] with CP, found to have NSTEMI. [...] Jakob Pa MD on at 0851 RPT #:[id number] END OF REPORT 2022-09-27 12:32:00-00:00 [facility] ([facility] Hospitalist Progress Note REPORT#:[id number] REPORT STATUS: Signed DATE:09/27/22 TIME: 1232 PATIENT: MONICA BECK UNIT #: [id number] ROOM/BED: [place] [address] : 42 AGE: 82 SEX: M ATTEND: Nicolasa Maria MD ADM AUTHOR: Chiki Fernandez MD * ALL edits or amendments must be made on the el [employer]/computer document * Subjective Chief complaint: NOT FEELING WELL YET, BUT SITTING IN CHAIR NOW HPI: 82-year-old male with past m edical history of hypertension, hyperlipidemia, type 2 diabetes mellitus, restless leg syndro me, and aortic stenosis is transferred here from [facility], where he presen tamra today with complaint of chest pain for the past few weeks. Patie nt complained of substernal chest pain associated with diaphoresis. He was found to hav e elevated troponin I and cardiology was consulted. Patient had left heart catheterization, the results of which are not available at this time. He was then transferred to [facility] for evaluation by cardiothoracic surge ry. Objective [...] 24 hour I O ending at 0700: 09 0700 05/08 1900 Intake Total 1581.00 2720.00 [...] Meds + DC'd Last 24 Hrs Ipratropium [place] (ATROVENT) 500 MCG RTQ2H PRN PRN INH [...] 0 .STK-ME D ONE .ROUTE (DC) Ipratropium [place] (ATROVENT) 500 MCG RTQ4H INH Albumin Human [...] Sodium (KEFZOL OR ANCEF) 2 GM PREOP INVENTORY AUDITOR IV (DC) Vancomycin HCl (VANCOMYCIN HCL) 1,000 [...] soft Extremities: no edema Musculoskeletal: normal inspection Neuro/BOTTOM BUFFER: no motor deficits Skin: normal color Psychiatry: [...] - 16.9 G/DL) 8.1 L 8.5 L 8.7 L 8.7 L Sodium (134 - 147 [...] %) 7.7 L 4.4 L 7.5 L [place] % (Auto) (4.8 - 9.0 %) 9.0 8.6 4.5 L Eos % (Auto) (0.3 - 3.7 %) 0.1 L 0.0 L 0.2 L Baso % (Auto) (0.0 - 2.0 %) 0.1 0.1 0.1 Neut # (Auto) (2.0 - 7.6 x10 3/uL) 7.88 H 7.83 H 11.11 H Lymph # (Auto) (1.0 - 3.8 x10 3/uL) 0.73 L 0.40 L 0.96 L [place] # (Auto) (0.1 - 0.8 x10 3/uL) [...] 4. Small bilateral pleural effusions. Impression By: Dewey MartinezD. Free Text Obj Notes Free Text Obj Notes: General appearance: alert, awake, oriented Head/Eyes: atraumatic, normocephalic ENT: moist mucosal membranes, normal pharynx Neck: non-tender, supple/no meningismus, no JVD Cardiovascular: normal capillary refill, normal heart sounds, regular rate rhythm Respiratory: aerating well, clear to auscultatio n, symmetric expansion Abdomen: non-tender, normal bowel sounds, soft, no distention Extremities: no clubbing, no cyanosis, no edema Neuro/BOTTOM BUFFER: alert, oriented X 3, CNII-XII intact Skin: dry, intact Psychiatry: normal affect, normal judgment/insig ht Diagnosis, Assessment Plan Consultants: cardiovascular surgery Free Text DxA P Notes Free text DxA P notes: NSTEMI, 3-V CAD, SEVERE , S/P CABGX2, S/P AVR, S/P LEYDI ISOLATION - CARD/CTS SEEN, PLAN PER CTS, ON CT/KING Patient found to have elevated troponin at [facility] Results of left heart cath not available at [facility] s time Continue aspirin 81 mg daily [...] an advanced directive His medical power of prosecuting attorney is son Guille de la vega Electronically Signed by Chiki Fernandez MD on 09/27 at 1234 RPT #:[id number] END OF REPORT 2022-09-27 11:53:00-00:00 [id number] [place] [id number] PATIENT NAME: MONICA BECK ADMIT DATE: 0 09/24/22 ACCOUNT NO: [id number] ROOM NO: [facility] AGE: 82 REPORT TYPE: eELECTROCARDIOGRAM REPORT SEX: M ADMITTING PHYSICIAN:Kathya Maria MD ATTENDING PHYSICIAN:Kathya Maria MD Order: [id number] Test Reason : r/o afib Test Date/Time [...] by:ANA SANCHEZ MD Electronically Signed by Ana Luna MD on 0 09/28/22 at 1801 PATIENT NAME: MONICA BECK ACCOUNT #: [id number] 2022-09-27 08:25:00-00:00 [facility] Critical Care Progress Note REPORT#:[id number] REPORT STATUS: Signed DATE:09/27/22 TIME: 824 PATIENT: MONICA BECK UNIT #: [id number] ROOM/BED: [facility]-1 : 42 AGE: 82 SEX: M ATTEND: Nicolasa Maria MD ADM AUTHOR: Milton Mast MD * ALL edits or amendments must be made on the el [employer]/computer document * Subjective Chief complaint: CABG HPI: [...] Rate 2 09/27 0812 B/P 95/53 09/27 0600 B/P Mean 69 09/27 0700 Pulse 70 09/27 0700 Resp 26 09/27 0700 Temp 97.7 09/27 0400 24 hour I O ending at 0700: 09/27 0700 /08 1900 Intake Total 1581.00 2720.00 Output Total [...] Meds + DC'd Last 24 Hrs Ipratropium [place] (ATROVENT) 500 MCG RTQ2H PRN PRN INH [...] 0 .STK-ME D ONE .ROUTE (DC) Ipratropium [place] (ATROVENT) 500 MCG RTQ4H INH Albumin Human [...] 50 ML .STK-MED ONE IV (DC) Rocuronium [place] (ZEMURON) 0 .STK-MED ONE IV ( DC) [...] Sodium (KEFZOL OR ANCEF) 2 GM PREOP INVENTORY AUDITOR IV (DC) Vancomycin HCl (VANCOMYCIN HCL) 1,000 [...] Findings/data: Laboratory Tests 09/27 09/26 09/26 09/26 7997 2042 1715 1635 Blood Gas Puncture Site [...] mmol/l) 1.4 0.9 0.9 0.5 L /08 08 1226 1109 Blood Gas O2 Saturation (90 [...] %) 7.7 L 4.4 L 7.5 L [place] % (Auto) (4.8 - 9.0 %) 9.0 8.6 4.5 L Eos % (Auto) (0.3 - 3.7 %) 0.1 L 0.0 L 0.2 L Baso % (Auto) (0.0 - 2.0 %) 0.1 0.1 0.1 Neut # (Auto) (2.0 - 7.6 x10 3/uL) 7.88 H 7.83 H 11.11 H Lymph # (Auto) (1.0 - 3.8 x10 3/uL) 0.73 L 0.40 L 0.96 L [place] # (Auto) (0.1 - 0.8 x10 3/uL) [...] Musculoskeletal: normal inspection, no muscle sp asm Neuro/BOTTOM BUFFER: Alert and oriented x3, CNII-XII gross ly [...] MD on 09/19 08/11 at 1245 RPT #:[id number] END OF REPORT 2022-09-27 04:00:00-00:00 [id number] [place] [address] PATIENT NAME: MONICA BECK ADMIT DATE: 0 09/24/22 ACCOUNT NO: [id number] ROOM NO: [facility] AGE: 82 REPORT TYPE: eELECTROCARDIOGRAM REPORT SEX: M ADMITTING PHYSICIAN:Kathya Maria MD ATTENDING PHYSICIAN:Kathya Maria MD Order: [id number] Test Reason : s/p cabg Test Date/Time [...] No changes Confirmed by MD BRAULIO, ANA ([id number]) on 1:59:50 PM Referred By: Self Referred Confirmed by:ANA SANCHEZ MD at 1359 PATIENT NAME: MONICA BECK ACCOUNT #: [id number] 2022-09-26 17:18:00-00:00 [id number] [place] [id number] PATIENT NAME: MONICA BECK ADMIT DATE: 0 09/24/22 ACCOUNT NO: [id number] ROOM NO: [facility] AGE: 82 REPORT TYPE: OPERATIVE REPORT SEX: [...] 5. Posterior pericardiotomy. SURGEON: Kathya Maria M.D. JEWELRY CASTING MODEL MAKER: Jose Guadalupe Chacon. ANESTHESIOLOGIST: Dr. Butler. ANESTHESIA: [...] PATIENT NAME: MONICA BECK ACCOUNT #: [id number] the aortic annulus. 9. Following decalcification, the [...] in size. Arteriotomy was performed with a Knox blade and extended with Will scissors. A [...] size. Arteriotomy was performe d with a Knox blade and extended with Will scissors. NAIR [...] ed. One ventricular wire was placed. A 28-Divehi chest tube was ashley nori in the mediastinum and 28-angled chest tube was placed in the left pleural space. Once the patie nt was at temperature, PATIENT NAME: MONICA BECK DONIGEL ACCOUNT #: [id number] de-airing maneuvers were rep eated and the [...] Transcribed: 09/26/2022 21:18:02 MITCHELL/LUIS A Receipt ID: [id number] Authenticated by Kathy Maria MD On 023 12:14:36 PM at 1214 PATIENT NAME: MONICA BECK SIDRA ACCOUNT #: [id number] 2022-09-26 17:10:00-00:00 [facility] Brief Op Note REPORT#:[id number] REPORT STATUS: Signed DATE:09/26/22 TIME: 171 PATIENT: MONICA BECK UNIT #: [id number] ROOM/BED: [place] [address] : 42 AGE: 82 SEX: M ATTEND: Nicolasa Maria MD ADM AUTHOR: Kathya Maria MD * ALL edits or amendments must be made on the [employer] document * Op/Inv Proc Note - Brief Pre-procedure diagnosis: CAD Post-procedure diagnosis: same as pre procedure dx Procedures performed: AVR (25 INSPIRIS) CABG X 2 (NAIR-LAD, SVG-OM) ALAA EVH (RGSV) POSTERIOR PERICARDIOTOMY Primary Surgeon: CARSON Building Pressure Washer(s): PALAK Findings: HEAVILY CALCIFIED TRCUSPID AORTIC VALVE Complications: none Estimated blood loss in ml's: 100 CC Specimens removed/altered: AORTIC CUSP at 1713 RPT #:[id number] END OF REPORT 2022-09-26 16:57:00-00:00 [facility] ([facility]) Critical Care Consult Note REPORT#:[id number] REPORT STATUS: Signed DATE:09/26/22 TIME: 1656 PATIENT: MONICA BECK UNIT #: [id number] ROOM/BED: [place] [address] : 42 AGE: 82 SEX: M ATTEND: Nicolasa Maria MD ADM AUTHOR: Milton Mast MD * ALL edits or amendments must be made on the [employer] document * History of Present Illness HPI [...] Documented: Result Date Time Pulse Ox 96 / 0753 B/P 139/64 / 0753 B/P Mean 0.0 / 0753 O2 Delivery Room air / 0753 Temp 96.8 /08 0753 Pulse 67 05/08 0753 Resp 20 / 0753 24 hour I O ending at 0700: 08 0700 05/ 1900 Intake Total 657.20 849.00 Output Total 975 Balance -317.80 849.00 Intake, IV 211.20 249.00 Intake, Oral 446 600 Number 1 Bowel Movements Output, Urine 975 Patient 74.3 kg Weight Weight Standing scale Measurement Method Patient Weight and BMI Weight (kg): 74.300 BMI: 26.4 Medications: Active Meds + DC'd Last 24 Hrs Ipratropium [place] (ATROVENT) 500 MCG RTQ2H PRN PRN INH [...] TIME PO Glycopyrrolate (GLYCOPYRROLATE) 0 .STK-MED ONE .ROUTE (DC) Neostigmine Methylsulfate (PROSTIGMIN) 0 .STK-ME D ONE .ROUTE (DC) Ipratropium [place] (ATROVENT) 500 MCG RTQ4H INH Albumin Human [...] 50 ML .STK-MED ONE IV (DC) Rocuronium [place] (ZEMURON) 0 .STK-MED ONE IV ( DC) Midazolam HCl (VERSED) 0 .STK-MED ONE .ROUTE (DC ) Cefazolin Sodium (KEFZOL OR ANCEF) 0 .STK-MED ON E .ROUTE (DC) Vancomycin HCl (VANCOMYCIN HCL) 0 .STK-MED ONE .ROUTE (DC) Etomidate (AMIDATE) 0 .STK-MED ONE IV (DC) Albumin Human (ALBUMINAR-25%) 100 ML .STK-MED ON E IV (DC) Heparin Sodium (HEPARIN SODIUM) 0 .STK-MED ONE .ROUTE (DC) Sodium Chloride (SODIUM CHLORIDE 0.9%) 100 [...] 0 .STK-MED ONE .ROUTE ( DC) Rocuronium [place] (ZEMURON) 0 .STK-MED ONE IV ( DC) [...] Sodium (KEFZOL OR ANCEF) 2 GM PREOP INVENTORY AUDITOR IV (DC) Metoprolol Tartrate (LOPRESSOR) 6.25 MG [...] (90 - 100 %) 94.7 97.4 95.9 100. 0 ABG pH (7.35 - 7.45) 7.334 L [...] (90 - 100 %) 100.0 100.0 96.2 100 .0 ABG pH (7.35 - 7.45) 7.446 7.422 [...] SEC) 143 H 756 H 817 H 0508 09/26 09/26 09/26 1300 1228 1111 0300 Coagulation INR (0.8 - 1.2) 1.2 PTT (Ruby) (25.0 - 39.5 Seconds) 48.1 H PT Patient/Control Mix (9.3 - 12.9 SECONDS) 13. 8 H Activated Coag Time (74 - 137 SEC) 883 H 733 H 149 H 09/25 2040 Coagulation PTT (Ruby) (25.0 - 39.5 Seconds) 73.6 H Laboratory [...] (14.0 - 32.0 %) 7.5 L 24.9 [place] % (Auto) (4.8 - 9.0 %) 4.5 L 6.9 Eos % (Auto) (0.3 - 3.7 %) 0.2 L 3.0 Baso % (Auto) (0.0 - 2.0 %) 0.1 0.4 Neut # (Auto) (2.0 - 7.6 x10 3/uL) 11.11 H 3.65 Lymph # (Auto) (1.0 - 3.8 x10 3/uL) 0.96 L 1.41 [place] # (Auto) (0.1 - 0.8 x10 3/uL) [...] Musculoskeletal: normal inspection, no muscle sp asm Neuro/BOTTOM BUFFER: alert and oriented, CNII-XII grossly intact, no [...] MD on 09/19 08/11 at 1245 RPT #:[id number] END OF REPORT 2022-09-26 16:40:00-00:00 [id number] [place] [address] PATIENT NAME: MONICA BECK ADMIT DATE: 0 09/24/22 ACCOUNT NO: [id number] ROOM NO: G.2204 AGE: 82 REPORT TYPE: eELECTROCARDIOGRAM REPORT SEX: M ADMITTING PHYSICIAN:Kathya Maria MD ATTENDING PHYSICIAN:Kathya Maria MD Order: [id number] Test Reason : sp cabg Test Date/Time [...] for LVH, may be normal variant ( [place] product ) Possible Lateral infarct , age undetermined Inferior infarct , age undetermined Abnormal ECG No previous ECGs available Confirmed by BLAINE GIORDANO MD ([id number]) on 3 8:36:46 AM Referred By: Self Referred Confirmed by:BLAINE SRINIVASAN MD Electronically Signed by Blaine Giordano MD on at 0836 PATIENT NAME: MONICA BECK ACCOUNT #: [id number] 2022-09-26 12:42:00-00:00 [facility] Hospitalist Progress Note REPORT#:[id number] REPORT STATUS: Signed DATE:09/26/22 TIME: 1242 PATIENT: MONICA BECK UNIT #: [id number] ROOM/BED: [place] [address] : 42 AGE: 82 SEX: M ATTEND: Nicolasa Maria MD ADM AUTHOR: Chiki Fernandez MD * ALL edits or amendments must be made on the [employer]/computer document * Subjective Chief complaint: IN OR FOR CABG/AVR NOW HPI: 82-year-old male with past m edical history of hypertension, hyperlipidemia, type 2 diabetes mellitus, restless leg syndro me, and aortic stenosis is transferred here from [facility], where he presen tamra today with complaint of chest pain for the past few weeks. Patie nt complained of substernal chest pain associated with diaphoresis. He was found to hav e elevated troponin I and cardiology was consulted. Patient had left heart catheterization, the results of which are not available at this time. He was then transferred to [facility] for evaluation by cardiothoracic surge ry. Objective General VS/I O: Vital Signs: Date Time Temp Pulse Resp B/P B/P Pulse O2 O2 Flow FiO2 Mean Ox Delivery Rate 09/26 0753 [...] Meds + DC'd Last 24 Hrs Rocuronium [place] (ZEMURON) 0 .STK-MED ONE IV ( DC) [...] ( DC) Magnesium Sulfate (MAGNESIUM SULFATE) 0 .STK-ME D ONE IV (DC) Phenylephrine HCl (JACOBO-SYNEPHRINE 10MG/ML [...] .ROUTE (DC) Dexamethasone Sodium Phosphate (DECADRON) 0 .ST K-MED ONE .ROUTE (DC) Lidocaine HCl (XYLOCAINE) 0 .STK-MED ONE .ROUTE (DC) Ondansetron HCl (ZOFRAN) 0 .STK-MED ONE .ROUTE ( DC) Rocuronium [place] (ZEMURON) 0 .STK-MED ONE IV ( DC) [...] Sodium (KEFZOL OR ANCEF) 2 GM PREOP INVENTORY AUDITOR IV (CKD) Metoprolol Tartrate (LOPRESSOR) 6.25 MG [...] soft Extremities: no edema Musculoskeletal: normal inspection Neuro/BOTTOM BUFFER: no motor deficits Skin: normal color Psychiatry: [...] Coagulation INR (0.8 - 1.2) 1.2 PTT ([place]) (25.0 - 39.5 Seconds) 48.1 H 73.6 H PT Patient/Control Mix (9.3 - 12.9 SECONDS) 13. 8 H Activated Coag Time (74 - 137 SEC) 733 H 149 H 09/25 1300 Coagulation PTT ([place]) (25.0 - 39.5 Seconds) 88.4 H Laboratory [...] % (Auto) (14.0 - 32.0 %) 24.9 [place] % (Auto) (4.8 - 9.0 %) 6.9 Eos % (Auto) (0.3 - 3.7 %) 3.0 Baso % (Auto) (0.0 - 2.0 %) 0.4 Neut # (Auto) (2.0 - 7.6 x10 3/uL) 3.65 Lymph # (Auto) (1.0 - 3.8 x10 3/uL) 1.41 [place] # (Auto) (0.1 - 0.8 x10 3/uL) 0.39 Eos # (Auto) (0.0 - 0.2 x10 3/uL) 0.17 Baso # (Auto) (0.0 - 0.2 x10 3/uL) 0.02 Abs Immat Gran (auto) (0.00 - 0.03 x10 3/uL) 0. 02 Add Manual Diff NO Immature Gran % [...] Extremities: no clubbing, no cyanosis, no edema Neuro/BOTTOM BUFFER: alert, oriented X 3, CNII-XII intact Skin: [...] an advanced directive His medical power of prosecuting attorney is son Gu[place] de la vega Electronically Signed by Chiki Fernandez MD on 09/26 at 1244 RPT #:[id number] END OF REPORT 2022-09-26 09:24:00-00:00 [id number] [place] [address] PATIENT NAME: MONICA BECK ADMIT DATE: 09/24/22 ACCOUNT NO: [id number] ROOM NO: G.3356 AGE: 82 REPORT TYPE: eECHOCARDIOGRAM REPORT SEX: M ADMITTING PHYSICIAN:Kathya Maria MD ATTENDING PHYSICIAN:Kathya Maria MD *[place] [address] Transthoracic Echocardiogram Patient: Monica Beck Study Date: 09/25/2022 BP: 112 / 62 Location: [facility] URN: [id number] 2526 : 1940 Age: 82 Height: 66 in / 167.6 cm Gender: M Weight: 16 6.6 lb / 75.7 kg BMI/BSA: 27 kg/m 2 / 1.85 m 2 *Ordering Physician: * Alexandra Christie *Interpreting Physician: * Jakob Pa MD *Carpet Or Rug Layer Helper: Doris Linares Indications: Pre-op. Study data: Transthoracic echocardiogram. Proced ure: Transthoracic echocardiography was performed. Image quality wa s adequate. The study was technically limited due to poor acoustic win trang availability. The parasternal window was low. Complete 2D, complet e spectral Doppler, and color Doppler. Location: Bedside. Patient status : Inpatient. Patient room number: 3356. Study status: [facility]. Findings Left ventricle: The cavity size is normal. Wall thickness is mildly increased. Systolic function is reduced. The est imated ejection fraction is 45-49%. Moderate diffuse hypokinesis. Feature s are consistent with a pseudonormal left ventricular filling pattern, w ith concomitant abnormal PATIENT NAME: MONICA BECK ACCOUNT #: [id number] relaxation and increased filling pressure (grade 2 [...] PATIENT NAME: MONICA BECK ACCOUNT #: [id number] TDI E', med avis, 3.3 cm/sec >=7.0 [...] PATIENT NAME: MONICA BECK ACCOUNT #: [id number] 1-p A4C Aortic valve Value Ref Leaflet [...] cm 2 --------- Pulmonic valve Value Ref MI peak v 1.47 m/sec --------- MI peak grad 9 mm Hg --------- MI v, ED 0.73 m/sec --------- Aortic root [...] PATIENT NAME: MONICA BECK ACCOUNT #: [id number] least mild to moderate eccentric regurgitation. 5. Pericardium, extracardiac: A trivial pericard ial effusion cannot be excluded. Prepared and electronically signed by Jakob Pa MD 09/26/2022 09:24 Electronically Signed by Jakob Pa MD on 0 09/26/22 at 0924 PATIENT NAME: MONICA BECK ACCOUNT #: [id number] 2022-09-25 12:25:00-00:00 [facility] Cardiothoracic Surgery Prog REPORT#:[id number] REPORT STATUS: Signed DATE:09/25/22 TIME: 1225 PATIENT: MONICA BECK UNIT #: [id number] ROOM/BED: [place] [address] : 42 AGE: 82 SEX: M ATTEND: Nicolasa Maria MD ADM AUTHOR: Alexandra Christie NP * ALL edits or amendments must be made on the [employer]computer document * Subjective Chief complaint: Pre CABG, [...] 09/25 1034 O2 Delivery Room air 09/25 103 Temp 97.9 09/25 1034 Pulse 72 09/25 [...] soft, non-tender, no distention Extremities: moves all Neuro/BOTTOM BUFFER: alert, oriented X 3, normal speech, n o motor deficits Psychiatry: normal affect, normal mood Current Medications Medications: Active Meds + DC'd Last 24 Hrs Cefazolin Sodium (KEFZOL OR ANCEF) 2 GM PREOP INVENTORY AUDITOR IV (CKD) Metoprolol Tartrate (LOPRESSOR) 6.25 MG [...] % (Auto) (14.0 - 32.0 %) 23.4 [place] % (Auto) (4.8 - 9.0 %) 7.9 Eos % (Auto) (0.3 - 3.7 %) 2.7 Baso % (Auto) (0.0 - 2.0 %) 0.2 Neut # (Auto) (2.0 - 7.6 x10 3/uL) 3.67 Lymph # (Auto) (1.0 - 3.8 x10 3/uL) 1.31 [place] # (Auto) (0.1 - 0.8 x10 3/uL) [...] pH (5.0 - 7.0) 5.0 Ur Specific [place] (1.005 - 1.030) 1.022 Urine Protein (NEGATIVE) [...] Impressions: ULTRASOUND - DUP VEIN AILEEN 09/24 5839 Report Impression - Status: SIGNED Entered: 09/24/2022 9103 Impression: Vein mapping as described above. Impression By: t.FATMATA - Mikey Salmon M.D. ULTRASOUND - DUP EXTRACRANIAL AILEEN 09/24 5239 Report Impression - Status: SIGNED Entered: 09/24/2022 6532 IMPRESSION: 1. RIGHT: Carotid artery stenosis estimated at l ess than 50% 2. LEFT: Carotid artery stenosis estimated at le ss than 50% Impression By: Celia - Mikey Salmon M.D. Diagnosis, Assessment Plan Hospital course to date: Mr Beck a very pleasant 82-year-old male with past medical history of diabetes, hyperlipidemia, restless leg syndrome aortic valve stenosis who presented to [facility] complaining of substernal chest pain across the anterior chest positive for n ausea and diaphoresis. CT chest showed small to moderate bilateral pleural effusions, ascending aorta measuring 4.2 cm. Cardiac enzymes elevated pat ient deemed non-STEMI. He was taken to the [facility] coronary angiogram revealed severe multivessel coronary artery disease. Patient started on heparin drip and transferred to [facility] for possible CABG and AVR. PLAN Coronary angiogram images will be uploaded in [employer] system Dr Maria explained to the patient [...] stenosis bilaterally Noncontrasted CT chest performed at [facility] reviewed with Dr. Maria. Images will be uploaded in our system. Coronary angiogram images uploaded in [employer] o Plan for CABG and AVR tomorr ow morning. The surgery, risks involved, STS score, benefits, complications and alternatives were ex plained to the patient. He acknowledged understanding and is willing to pro ceed. Patient changed code status to FULL CODE as he i s going for surgery N.p.o. after midnight Consultants: cardiovascular surgery at 1758 at 0701 RPT #:[id number] END OF REPORT 2022-09-25 11:36:00-00:[address] [facility] ([facility] Hospitalist Progress Note REPORT#:[id number] REPORT STATUS: Signed DATE:09/25/22 TIME: 1136 PATIENT: MONICA BECK UNIT #: [id number] ROOM/BED: [place] [address] : 42 AGE: 82 SEX: M ATTEND: Nicolasa Maria MD ADM AUTHOR: Chiki Fernandez MD * ALL edits or amendments must be made on the [employer]/computer document * Subjective Chief complaint: AT BS, NOC OMPLAINTS, PLAN FOR CABG/AVR ON MONDAY HPI: 82-year-old male with past m edical history of hypertension, hyperlipidemia, type 2 diabetes mellitus, restless leg syndro me, and aortic stenosis is transferred here from [facility], where he presen tamra today with complaint of chest pain for the past few weeks. Patie nt complained of substernal chest pain associated with diaphoresis. He was found to hav e elevated troponin I and cardiology was consulted. Patient had left heart catheterization, the results of which are not available at this time. He was then transferred to [facility] for evaluation by cardiothoracic surge ry. Objective General VS/I O: Vital Signs: Date Time Temp Pulse Resp B/P B/P Pulse O2 O2 F low FiO2 Mean Ox Delivery Rate 09/25 1034 97.9 72 14 112/62 0.0 98 Room air 09/25 0706 97.9 72 14 149/67 0.0 97 Room air / 0541 97.7 65 14 149/67 0.0 96 Room air / 0120 98.1 82 14 149/85 0.0 94 Room air 09/24 2043 97.7 76 14 133/60 0.0 93 [...] Sodium (KEFZOL OR ANCEF) 2 GM PREOP INVENTORY AUDITOR IV (CKD) Metoprolol Tartrate (LOPRESSOR) 6.25 MG [...] (NEURONTIN) 200 MG PREOP ONCALL PO ( CKD) Sodium Chloride (SODIUM CHLORIDE) 20 ML ASDIR [...] soft Extremities: no edema Musculoskeletal: normal inspection Neuro/BOTTOM BUFFER: alert, oriented X 3, normal speech, n [...] - 10.5 mg/dL) 8.2 Laboratory Tests 09/25 09/24 09/24 0450 2329 1700 Coagulation PTT ([place]) (25.0 - 39.5 Seconds) 54.3 H 70.3 H 68.8 H Laboratory Tests 09/25 045 Hematology WBC (4.5 - 11.0 x10 3/uL) [...] % (Auto) (14.0 - 32.0 %) 23.4 [place] % (Auto) (4.8 - 9.0 %) 7.9 Eos % (Auto) (0.3 - 3.7 %) 2.7 Baso % (Auto) (0.0 - 2.0 %) 0.2 Neut # (Auto) (2.0 - 7.6 x10 3/uL) 3.67 Lymph # (Auto) (1.0 - 3.8 x10 3/uL) 1.31 [place] # (Auto) (0.1 - 0.8 x10 3/uL) [...] pH (5.0 - 7.0) 5.0 Ur Specific [place] (1.005 - 1.030) 1.022 Urine Protein (NEGATIVE) [...] 1653 Report Impression - Status: SIGNED Entered: 09/24/20221840 Impression: Vein mapping as described above. Impression By: Celia Salmon M.D. ULTRASOUND - DUP EXTRACRANIAL AILEEN 09/24 1653 Report Impression - Status: SIGNED Entered: 09/24/2022 184 IMPRESSION: 1. RIGHT: Carotid artery stenosis estimated [...] Extremities: no clubbing, no cyanosis, no edema Neuro/BOTTOM BUFFER: alert, oriented X 3, CNII-XII intact Skin: dry, intact Psychiatry: normal affect, normal judgment/insig ht Diagnosis, Assessment Plan Consultants: cardiovascular surgery Free Text DxA P Notes Free text DxA P notes: NSTEMI, 3-V CAD - CTS SEEN, PLAN FOR CABG/AVR ON MONDAY Patient found to have elevated troponin at outs the [facility] Results of left heart cath not [...] an advanced directive His medical power of prosecuting attorney is son Guille de la vega Electronically Signed by Chiki Fernandez MD on 09/25 at 1139 RPT #:[id number] END OF REPORT 2022-09-24 16:39:00-00:00 [facility]) Clinical Note REPORT#:[id number] REPORT STATUS: Signed DATE:09/24/22 TIME: 1638 PATIENT: MONICA BECK UNIT #: [id number] ROOM/BED: [place] [address] : 42 AGE: 82 SEX: M ATTEND: Nicolasa Maria MD ADM AUTHOR: Chiki Fernandez MD * ALL edits or amendments must be made on the [employer] document * Clinical Note Note: EEN DR. RICHTER THIS AM, H/O DM, HTN, NOW 3V CA D, AND , NEED CABG/AVR, CTS SEEN, PREOP EVAL. Electronically Signed by Chiki Fernandez MD on 09/24 at 1639 RPT #:[id number] END OF REPORT 2022-09-24 09:19:00-00:00 [facility] Cardiothoracic Surgery Consult REPORT#:[id number] REPORT STATUS: Signed DATE:09/24/22 TIME: 918 PATIENT: MONICA BECK UNIT #: [id number] ROOM/BED: [place] [address] : 42 AGE: 82 SEX: M ATTEND: Nicolasa Maria MD ADM AUTHOR: Alexandra Christie * ALL edits or amendments must be made on the [employer] document * Zandra Jimenez 09/24/22 0919: History of Present Illness HPI Chief complaint: Chest pain Aortic stenosis PCP: PCP: Kathya Maria MD HPI: Mr Beck a very pleasant 82-year-old male with past medical history of diabetes, hyperlipidemia, restless leg syndrome aortic valve stenosis who presented to [facility] complaining of substernal chest pain across the anterior chest positive for n ausea and diaphoresis. CT chest showed small to moderate bilateral pleural effusions, ascending aorta measuring 4.2 cm. Cardiac enzymes elevated pat ient deemed non-STEMI. He was taken to the [facility] coronary angiogram revealed severe multivessel coronary artery disease. Patient started on heparin drip and transferred to [facility] for possible CABG and AVR. History [...] 2 MG Q1H PRN PRN 09/24 0245 A C (morphine SULFATE) IV 09/29 024 Temazepam 15 MG BEDTIME PRN PRN 09/24 024 AC (RESTORIL) PO 10/24 024 Electrolytic, Caloric, And Rolan Sig/Jocy Start time Last Medication Dose Route Stop Time Status Admin Dextrose/Water 125 ML ASDIR PRN 09/24 024 CKD (DEXTROSE 10% IN IV 10/25 243 WATER) Dextrose/Water 250 ML ASDIR PRN 09/24 024 CKD (DEXTROSE 10% IN IV 10/25 243 [...] 07 Glucagon 1 MG ASDIR PRN 09/24 024 AC (GLUCAGON) IM 10/24 024 Allergies: Coded [...] Pulse Ox 95 09/24 0810 B/P 94/53 / 0810 B/P Mean 66 09/24 0810 Temp [...] syndrome aortic valve stenosis who presented to [facility] complaining of substernal chest pain across the anterior chest positive for n ausea and diaphoresis. CT chest showed small to moderate bilateral pleural effusions, ascending aorta measuring 4.2 cm. Cardiac enzymes elevated pat ient deemed non-STEMI. He was taken to the [facility] coronary angiogram revealed severe multivessel coronary artery disease. Patient started on heparin drip and transferred to [facility] for possible CABG and AVR. PLAN Coronary angiogram images will be uploaded in [employer] system Dr Maria explained to the patient [...] all questions. at 1207 at 0701 RPT #:[id number] END OF REPORT 2022-09-24 02:40:00-00:[address] [facility] ([facility]) Hospitalist Consultation REPORT#:[id number] REPORT STATUS: Signed DATE:09/24/22 TIME: 0240 PATIENT: MONICA BECK UNIT #: [id number] ROOM[facility]BED: [facility] : 42 AGE: 82 SEX: M ATTEND: Nicolasa Maria MD ADM AUTHOR: Mayo Richter DO * ALL edits or amendments must be made on the [employer]/computer document * History of Present Illness Requesting Clinician: Dr Maria Chief complaint: Chest pain PCP: PCP: ZAHEER HPI: 82-year-old male with past m edical history of hypertension, hyperlipidemia, type 2 diabetes mellitus, restless leg syndro me, and aortic stenosis is transferred here from [facility], where he presen tamra today with complaint of chest pain for the past few weeks. Patie nt complained of substernal chest pain associated with diaphoresis. He was found to hav e elevated troponin I and cardiology was consulted. Patient had left heart catheterization, the results of which are not available at this time. He was then transferred to [facility] for evaluation by cardiothoracic surge ry. History [...] Extremities: no clubbing, no cyanosis, no edema Neuro/BOTTOM BUFFER: alert, oriented X 3, CNII-XII intact Skin: [...] found to have elevated troponin at outs the [facility] Results of left heart cath not [...] an advanced directive His medical power of prosecuting attorney is son Guille de la vega at 0640 RPT #:[id number] END OF REPORT
--- NOTE | 2022-12-25 15:46 | EDPHYS ---
Physician Documentation [facility] Name: Monica Gil Age: 82 yrs Sex: Male : 1940 Arrival Date: 12/25/2022 Time: 14:32 Bed 11 Private MD: ED Physician Derek Asif HPI: 12/25 16:34 This 82 yrs old Male presents to ER via Ambulatory with complaints of Picc Line Issue. kb 16:34 Pt reports he is supposed to be on 6 weeks of antibiotics through a picc line and he kb accidentally pulled it out while getting into bed today. Onset: The symptoms/episode began/occurred today. Severity of symptoms: At their worst the symptoms were very mild mild in the emergency department the symptoms are unchanged. The patient has not experienced similar symptoms in the past. The patient has not recently seen a physician. Historical: - Allergies: 15:48 No Known Allergies; iw - PMHx: 15:47 aortic valve stenosis; diabetes mellitus; Hypercholesterolemia; restless leg syndrom; iw - PSHx: 15:47 Coronary artery bypass graft; iw ROS: 16:33 Constitutional: Negative for fever, chills, and weight loss. kb 16:33 All other systems are negative. Exam: 16:33 Constitutional: This is a well developed, well nourished patient who is awake, alert, kb and in no acute distress. Head/Face: Normocephalic, atraumatic. ENT: Moist Mucous membranes Cardiovascular: Regular rate and rhythm with a normal S1 and S2. No gallops, murmurs, or rubs. No pulse deficits. Respiratory: Respirations even and unlabored. No increased work of breathing. Talking in full sentences Skin: Warm, dry with normal turgor. Normal color. MS/ Extremity: Pulses equal, no cyanosis. Neurovascular intact. Full, normal range of motion. Neuro: Awake and alert, GCS 15, oriented to person, place, time, and situation. Moves all extremities. Normal gait. 16:33 Skin: puncture site noted to right upper arm where picc had been. no bleeding, inflammation noted. Vital Signs: 15:07 BP 135 / 68; Pulse 78; Resp 16; Pulse Ox 97% on R/A; iw MDM: 14:37 Patient medically screened. kb 16:34 Data reviewed: vital signs, nurses notes. kb 16:35 Consideration of Admission/Observation Patient was admitted/placed on observation. kb Escalation of care including admission/observation considered. Management of patient was discussed with the following: Hospitalist: Dr Pollack accepts pt for admission. Historians other than the Patient: Daughter/Son: daughter. Counseling: I had a detailed discussion with the patient and/or guardian regarding: the historical points, exam findings, and any diagnostic results supporting the discharge/admit diagnosis, the need for further work-up and treatment in the hospital. ED course: Discussed case with warehouse operator to see if we could have PICC placed in ER. HS recommends admitted pt for PICC placement. . 16:50 Counseling: I had a detailed discussion with the patient and/or guardian regarding: the kb need for outpatient follow up, a family practitioner. ED course: After review of the chart from last admission, pt was only supposed to be on antibiotics for 2 weeks, not 6. Pt completed 14 days of antibiotics so does not need a PICC or any further doses at this time. Pt will be discharged home to follow up with PCP. 12/25 15:36 Order name: Protime (+inr); Complete Time: 16:31 kb 12/25 15:36 Order name: Ptt, Activated; Complete Time: 16:31 kb 12/25 15:45 Order name: CBC w/o diff; Complete Time: 16:21 kb 12/25 15:45 Order name: IV Start; Complete Time: 15:47 kb Administered Medications: 16:50 Not Given (Physician Discretion): ceFAZolin IVPB 2 grams IVPB once over 30 mins; (mix iw in 100 mL NS) Disposition: 19:02 Co-signature as Attending Physician, Derek Asif MD I reviewed the patient's care rt provided by the Advanced Practice Provider and agree with the diagnosis and treatment plan. Disposition Summary: 12/25/22 16:49 Discharge Ordered Location: Home(12/25/22 16:49) kb Condition: Stable(12/25/22 16:49) kb Diagnosis - Person with feared health complaint in whom no diagnosis is made kb Followup: kb - With: Emergency Department - When: As needed - Reason: Worsening of condition Followup: kb - With: Private Physician - When: 2 - 3 days - Reason: Recheck today's complaints, Continuance of care, Re-evaluation by your physician Forms: - Medication Reconciliation Form kb - Thank You Letter kb - Antibiotic Education kb - Prescription Opioid Use kb - Patient Portal Instructions kb Signatures: Dispatcher [employer] Lali Rosen FNP-C FNP-Ckb Williams, Irene, RN RN iw Derek Asif MD MD rt Corrections: (The following items were deleted from the chart) 16:48 15:46 Observation kb kb 16:48 15:46 Aldo Pollack kb kb 16:48 15:46 Telemetry/MedSurg (observation) kb kb 16:48 15:46 Stable kb kb 16:48 15:46 new kb kb 16:48 15:46 are unchanged kb kb 16:48 15:46 Standard kb kb 16:48 15:46 kb kb 16:48 15:46 Encounter for PICC placement kb kb
--- NOTE | 2022-12-25 15:46 | ER ---
Nurse's Notes [facility] Name: Monica Gil Age: 82 yrs Sex: Male : 1940 Arrival Date: 12/25/2022 Time: 14:32 Bed 11 Private MD: Diagnosis: Person with feared health complaint in whom no diagnosis is made Presentation: 12/25 15:07 Chief complaint: Patient states: accidentally pulled out PICC line, was placed about iw 8-9 days ago, staph infection in blood. Coronavirus screen: At this time, the client does not indicate any symptoms associated with coronavirus-19. Ebola Screen: Patient negative for fever greater than or equal to 101.5 degrees Fahrenheit, and additional compatible Ebola Virus Disease symptoms Patient denies exposure to infectious person. Patient denies travel to an Ebola-affected area in the 21 days before illness onset. No symptoms or risks identified at this time. Initial Sepsis Screen: Does the patient meet any 2 criteria? No. Patient's initial sepsis screen is negative. Does the patient have a suspected source of infection? No. Patient's initial sepsis screen is negative. Risk Assessment: Do you want to hurt yourself or someone else? Patient reports no desire to harm self or others. Onset of symptoms was December 25, 2022. 15:07 Method Of Arrival: Ambulatory iw 15:07 Acuity: DEXTER 3 iw Historical: - Allergies: 15:48 No Known Allergies; iw - PMHx: 15:47 aortic valve stenosis; diabetes mellitus; Hypercholesterolemia; restless leg syndrom; iw - PSHx: 15:47 Coronary artery bypass graft; iw Screenin:50 Abuse screen: Denies threats or abuse. Denies injuries from another. iw Assessment: 15:50 General: Appears in no apparent distress. Behavior is calm, cooperative. Pain: Denies iw pain. Neuro: Level of Consciousness is awake, alert, obeys commands, Oriented to person, place, time, situation, Moves all extremities. Respiratory: Respiratory effort is even, unlabored, Respiratory pattern is regular. Derm: Skin is fragile. Vital Signs: 15:07 BP 135 / 68; Pulse 78; Resp 16; Pulse Ox 97% on R/A; iw ED Course: 14:36 Patient arrived in ED. mg5 14:37 Lali Duncan FNP-C is PHCP. kb 14:37 Derek Asif MD is Attending Physician. kb 15:08 Triage completed. iw 15:08 Arm band placed on. iw 15:31 Patient has correct armband on for positive identification. Bed in low position. Call mm9 light in reach. Side rails up X 1. Adult w/ patient. Warm blanket given. Pulse ox on. NIBP on. 15:46 Aldo Pollack MD is Hospitalizing Provider. kb 15:46 Protime (+inr) Sent. mm9 15:47 Ptt, Activated Sent. mm9 15:47 CBC w/o diff Sent. mm9 15:47 Initial lab(s) drawn, by me, sent to lab. Inserted saline lock: 22 gauge in left mm9 forearm, using aseptic technique. 16:04 Inez Simons, RN is Primary Nurse. mb9 17:14 Primary Nurse role handed off by Inez Simons, CANDI iw 17:14 Yokasta Jett, RN is Primary Nurse. iw Administered Medications: 16:50 Not Given (Physician Discretion): ceFAZolin IVPB 2 grams IVPB once over 30 mins; (mix iw in 100 mL NS) Outcome: 15:46 Decision to Hospitalize by Provider. kb 16:49 Discharge ordered by MD. kb 17:14 Patient left the ED. iw Signatures: Lali Duncan FNP-C DENTAL LABORATORY SUPERVISOR-Ckb Yokasta Jett, RN RN iw Abida Henderson mm9 Inez Simons, CANDI RN [facility] Chasity Sanchez mg5
[2022-12-25 16:19] LABS: Hematocrit 37.3 % (39.6-49.0); MCV 90.2 fL (80-100); MPV 8.4 fL (7.6-11.3); RBC Red Blood Cell Count 4.13 M/uL (4.33-5.43)
[2022-12-25 16:25] LABS: Protime INR 1.12
[2022-12-25] MEDS ORDERED: CEFAZOLIN SODIUM 1 GM/VIAL ONE (16:53)
[2022-12-25] MEDS ORDERED: NA CHLORIDE 0.9% 100 ML ONE (16:53)
[2022-12-25 17:24] VITALS: BP 135/68; O2SAT 97
== END 2022-12-25 17:14 | disposition home or self-care (01) ==
LOC: ER 14:32
DX: Z71.1 Person with feared health complaint in whom no diagnosis is made (principal)
CPT/HCPCS: 36415; 85027; 85610; 85730; 99283; J0690